=== PATIENT | female | born 1940 | race Caucasian/White ===

== ENCOUNTER → 2016-04-13 | Day surgery (SDC) | payer OTHER ==
[~2016-04-13] VITALS: Ht 162.6 cm; Wt 72.7 kg
[~2016-04-13] MED LIST: ASPI81TA21 PO; BUPIVACAINE 0.25% 2.5MG/ML PF 10 ML VIAL ONE; CHOL1000 PO; CYCL0.052 OP; DIAZ5TAB3 PO; GABA-112 PO; IOPAMIDOL INJ 61% 15 ML VIAL ONE; LIDOCAINE HCL 1% MPF 5 ML VIAL ONE; LISI-461 PO; MAGNESIUM ZINC PO; MINO2.5T2 TOP; MISCCAP77 PO; MULT-506 PO; NAPR1TAB9 PO; OMEGCAP2 PO; PARO30TA PO; POLY335025 PO; RED RICE YEAST PO; TIZA4CAP PO; ULT50 PO; WLLSR/150 PO; [UNRECOGNIZED DRUG - CODE] PO
[2016-04-13 14:29] VITALS: Ht 162.6 cm; Wt 72.7 kg
--- NOTE | 2016-04-13 15:06 | History & Physical Bridge - SC ---
H&P Re-Evaluation Bridge Note: I have examined the patient, reviewed the History & Physical and in the interval since the performance of the History & Physical I have noted the following changes of clinical significance: No changes noted
[2016-04-13 15:29] VITALS: TEMP 37.2
--- NOTE | 2016-04-13 15:31 | Discharge Instructions ---
Discharge Instructions Visit Reason for Visit: Sacroiliitis Discharge Discharge Diagnosis / Problem: Right Si joint pain Discharge Goals Goal(s): Decrease discomfort, Improve function Activity Recommendations Activity Limitations: resume your previous activity Anesthesia . Post Anesthesia Instructions: If you have had General Anesthesia or IV Sedation: * Do not drive today. * Resume driving when surgeon permits. * Do not make important decisions or sign legal documents today. * Call surgeon for: 1. Temperature elevations greater than 101 degrees F. 2. Uncontrollable pain. 3. Excessive bleeding. 4. Persistent nausea and vomiting. 5. Medication intolerance (nausea, vomiting or rash). * For nausea and vomiting use only clear liquids such as: tea, soda, bouillon until nausea subsides, then gradually increase diet as tolerated. * If you have any concerns or questions, call your surgeon's office. If physician is unavailable and it is an emergency, call 911 or go to the nearest emergency room. . Diet Recommendations Recommended Home Diet: resume previous diet Procedures Procedures Performed: RIGHT SACROILIAC JOINT INJECTION Pending Studies Studies pending at discharge: no Medical Emergencies . Who to Call and When: Medical Emergencies: If at any time you feel your situation is an emergency, please call 911 immediately. . Non-Emergent Contact Non-Emergency issues call your: Specialist . . "Provider Documentation" section prepared by Ori Ziegler.
[2016-04-13 15:40] VITALS: BP 187/83; PULSE 77; O2SAT 98
--- NOTE | 2016-04-13 16:07 | OPERATIVE REPORT ---
DATE OF OPERATION: 04/13/2016 PREOPERATIVE DIAGNOSIS: Right sacroiliitis, underlying inflammatory bowel syndrome. POSTOPERATIVE DIAGNOSIS: Same. PROCEDURE: Right sacroiliac joint injection under fluoroscopic guidance. SURGEON: Dr. Ori Ziegler. INDICATIONS: The patient is a 76-year-old white female who was recently seen in the office and has pain localizing to the right SI joint. It occurred when she twisted too far in a therapy pool and she has pain that will radiate into the groin, into the top of the thigh, but not below the knee. It is dependent upon motion and movement of the sacroiliac low back area and pain will bring her to tears at times. PHYSICAL EXAMINATION: Pleasant female seated comfortably. She has point tenderness to palpation of her right SI joints, worse with extension, relieved with flexion. She has normal lower and sensory examination of her lower extremities with a positive Connor maneuver on the right. CONSENT: Verbal and written consent was obtained from the patient. Risks and benefits were reviewed. Risks include but are not limited to abscess and allergic reaction. The patient wishes to proceed. PROCEDURE: The patient was taken back to the special procedures room of the [facility] where she was maintained in a prone position. Backside was cleansed with Betadine x3 and a dry sterile dressing was applied. Fluoroscope was used to identify the right sacroiliac joint. Overlying skin was anesthetized with 2.5 mL of lidocaine 1% with a 25 gauge 1.5-inch needle. A 25 gauge 3.5 inch spinal needle was then directed down towards the SI joint. There was a little give as it entered the joint. Isovue-300 contrast 1 mL was injected in which demonstrated intraarticular uptake pattern. She then underwent injection after negative aspiration of 40 mg of Depo-Medrol and 1.5 mL of preservative free 0.25% Bupivacaine. Injection was well tolerated. DISPOSITION: 1. The patient is taken out into the discharge recovery area where she will be discharged home once discharge criteria have been met. 2. Follow up in the [facility] office in 2-4 weeks. I attest to the content of the Intraoperative Record and any orders documented therein. Any exceptio ns are noted below.
== END | disposition home or self-care (01) ==
LOC: X.SURG 14:09
PROVIDERS: ATTEND Physical Medicine & Rehabilitation
DX: M46.1 Sacroiliitis, not elsewhere classified (principal); M54.5 Low back pain

== ENCOUNTER → 2016-05-16 | Outpatient (CLI) | payer OTHER ==
[~2016-05-16] MED LIST changes: -BUPIVACAINE 0.25% 2.5MG/ML PF 10 ML VIAL ONE; -IOPAMIDOL INJ 61% 15 ML VIAL ONE; -LIDOCAINE HCL 1% MPF 5 ML VIAL ONE; -ULT50 PO; -WLLSR/150 PO
== END | disposition home or self-care (01) ==
LOC: C.RDSM 14:45
PROVIDERS: ATTEND Family Medicine Sports Medicine
DX: M25.551 Pain in right hip (principal)

== ENCOUNTER → 2016-07-13 | Outpatient (CLI) | payer OTHER ==
--- NOTE | 2016-07-13 14:28 | DIAGNOSTIC IMAGING REPORT ---
BILATERAL KNEES 5 VIEWS CLINICAL HISTORY: Bilateral knee pain COMPARISON: None. DISCUSSION: No acute fractures are visualized. There are no erosive or destructive changes. There are minor degenerative changes. Bony mineralization appears normal for age. IMPRESSION: Normal study for age. Electronically signed by: Matheus Car M.D. 07/13/2016 2:26 PM Dictated Date/Time: 07/13/2016 2:24 PM
== END | disposition home or self-care (01) ==
LOC: C.RDSM 14:10
PROVIDERS: ATTEND Physician Assistant
DX: M25.561 Pain in right knee (principal); M25.562 Pain in left knee

== ENCOUNTER → 2016-11-09 | Outpatient (CLI) | payer OTHER ==
--- NOTE | 2016-11-09 13:38 | DIAGNOSTIC IMAGING REPORT ---
RIGHT WRIST MIN 3 VIEWS ROUTINE HISTORY: 76 years-old Female acute right wrist pain without reported trauma. COMPARISON: None available TECHNIQUE: 3 views of the right wrist FINDINGS: Mild radiocarpal joint space narrowing and subchondral sclerosis is present. 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 Subcortical cysts are present within the scaphoid and trapezoid. No acute fracture or dislocation is identified. The soft tissues are unremarkable. IMPRESSION: 1. No acute fracture or dislocation. 2. Degenerative changes about the wrist include moderate first carpometacarpal, mild triscaphe and mild radiocarpal osteoarthritis. The above report was generated using voice recognition software. It may contain grammatical, syntax or spelling errors. Electronically signed by: Champ Knapp M.D. 11/09/2016 1:37 PM Dictated Date/Time: 11/09/2016 1:35 PM
--- NOTE | 2016-11-09 13:38 | DIAGNOSTIC IMAGING REPORT ---
LEFT HAND 3 VIEWS HISTORY: LEFT HAND PAIN COMPARISON: None. FINDINGS: There is no fracture or dislocation. Soft tissues are unremarkable. Moderate osteoarthritis within the DIP and PIP joints. The bones are slightly osteopenic. No erosions identified. Moderate osteoarthritis at the STT joint. IMPRESSION: No fractures. Mild to moderate degenerative changes as described above. Electronically signed by: Chi Haro M.D. 11/09/2016 1:37 PM Dictated Date/Time: 11/09/2016 1:35 PM
== END | disposition home or self-care (01) ==
LOC: C.RDSM 13:47
PROVIDERS: ATTEND Physician Assistant
DX: M79.642 Pain in left hand (principal); M25.531 Pain in right wrist

== ENCOUNTER → 2016-12-12 | Outpatient (CLI) | payer OTHER ==
--- NOTE | 2016-12-12 15:50 | MAMMOGRAPHY REPORT ---
BILATERAL DIGITAL SCREENING MAMMOGRAM WITH CAD: 12/12/2016 CLINICAL HISTORY: Routine screening. Patient has no complaints. TECHNIQUE: Bilateral CC and MLO views were obtained. Current study was also evaluated with a Compute r Aided Detection (CAD) system. COMPARISON: Comparison is made to exams dated: 12/07/2015 mammogram, 12/02/2014 mammogram, 11/25/2013 ma mmogram, 11/15/2011 mammogram, 11/05/2009 mammogram, and 11/15/2012 mammogram - [facility] nter. BREAST COMPOSITION: There are scattered areas of fibroglandular density in both breasts. FINDINGS: There is a newly visualized 6 mm focal asymmetry in the 7:00 to 8:00 anterior right breast , with possible peripheral curvilinear calcification. Although this could represent benign fat necro sis, definitive characterization with spot magnification views and possible ultrasound is recommended . A linear scar marker overlies the left breast. There are a few stable benign rim calcifications in b oth breasts. No other suspicious mass, architectural distortion or cluster of microcalcifications is seen. IMPRESSION: ACR BI-RADS CATEGORY 0: INCOMPLETE EVALUATION: NEED ADDITIONAL IMAGING EVALUATION The newly visualized 6 mm focal asymmetry in the right breast needs additional evaluation. The patient will be called to schedule an appointment. Approximately 10% of breast cancers are not detected with mammography. A negative mammographic report should not delay biopsy if a clinically suggestive mass is present. Mere Gli M.D. ay/:12/12/2016 15:01:29 Business Area Manager: Irma MERCEDES)(Jayson), [facility] letter sent: Addl Imaging 0 BI-RADS Code: ACR BI-RADS Category 0: Incomplete Evaluation: Need Additional Imaging Evaluation
== END | disposition home or self-care (01) ==
LOC: C.MAMM 12:50
PROVIDERS: ATTEND Family Medicine
DX: Z12.31 Encounter for screening mammogram for malignant neoplasm of breast (principal); N64.89 Other specified disorders of breast

== ENCOUNTER → 2016-12-15 | Outpatient (CLI) | payer OTHER ==
--- NOTE | 2016-12-15 15:35 | MAMMOGRAPHY REPORT ---
UNILATERAL RIGHT DIGITAL DIAGNOSTIC MAMMOGRAM AND TARGETED RIGHT ULTRASOUND: 12/15/2016 CLINICAL HISTORY: Callback from screening mammogram for right breast focal asymmetry. TECHNIQUE: Spot magnification right cc and ML views were obtained. COMPARISON: Comparison is made to exams dated: 12/12/2016 mammogram, 12/07/2015 mammogram, 12/02/2014 m ammogram, 11/25/2013 mammogram, 11/15/2012 mammogram, and 11/15/2011 mammogram - [facility] nter. BREAST COMPOSITION: There are scattered areas of fibroglandular density in the right breast. FINDINGS: Spot magnification views of the right breast demonstrate a round 5 mm mass in the right la teral breast at approximately 8 to 9:00, which is of mixed density including fat density. A peripher al curvilinear calcification is seen on the ML view as well as on the screening mammogram, consistent with a developing rim calcification as seen with oil cysts. Targeted ultrasound was performed of the area of the mammographic mass in the right breast. In the r ight breast at 8:30, 5 cm from the nipple, there is a superficial round circumscribed cystic anechoic 6 x 4 x 5 mm mass, with surrounding ill-defined hyperechoic tissue. This corresponds with the mammo graphic mass and has mammographic and sonographic features consistent with a benign oil cyst from fat necrosis. A smaller similar appearing anechoic benign oil cyst is also seen in the adjacent breast measuring 2 x 3 mm. IMPRESSION: ACR BI-RADS CATEGORY 2: BENIGN, TARGETED ULTRASOUND ACR BI-RADS CATEGORY 2: BENIGN Cystic 6 mm mass in the right breast at 8:30 on ultrasound, which demonstrates corresponding fat dens ity and peripheral rim calcification mammographically. The mass is benign and compatible with an oil cyst from fat necrosis. There is no mammographic or targeted sonographic evidence of malignancy. A 1 year screening mammogram is recommended. The patient has been verbally notified of the results. Approximately 10% of breast cancers are not detected with mammography. A negative mammographic report should not delay biopsy if a clinically suggestive mass is present. Marysol Dodd M.D. /:12/15/2016 13:47:29 Builder Operator: Leah Keith, [facility] letter sent: Normal 1/2 BI-RADS Code: ACR BI-RADS Category 2: Benign Ultrasound BI-RADS: ACR BI-RADS Category 2: Benign
== END | disposition home or self-care (01) ==
LOC: C.MAMM 13:16
PROVIDERS: ATTEND Family Medicine
DX: N64.89 Other specified disorders of breast (principal); N63 Unspecified lump in breast

== ENCOUNTER → 2017-03-15 | Outpatient (CLI) | payer OTHER ==
[~2017-03-15] MED LIST changes: +ASPI-319 PO; -ASPI81TA21 PO; +BIOTCAP2 PO; +DVN80 PO; +HYDR-5688 PO; +MAGNESIUM PO; +MINOXIDIL TOP
--- NOTE | 2017-03-15 16:00 | DIAGNOSTIC IMAGING REPORT ---
CERVICAL SPINE 4 OR 5 VIEWS CLINICAL HISTORY: NECK PAIN, RIGHT ARM PAIN/RADICULOPATHY COMPARISON STUDY: Cervical spine radiographs October 19, 2015. FINDINGS: Alignment of the cervical spine is anatomic. Vertebral body heights are maintained. There is no fracture or suspicious lesion. There is mild to moderate disc space narrowing with severe multilevel facet arthrosis. Multilevel bony neural foraminal narrowing is suboptimally assessed on this exam. There is no prevertebral abnormality. IMPRESSION: 1. No cervical spine fracture or subluxation. 2. [id number] multilevel degenerative disc disease and severe multilevel facet arthrosis of the cervical spine with suspected severe multilevel neural foraminal narrowing. Electronically signed by: Jaiden Hicks M.D. 03/15/2017 3:58 PM Dictated Date/Time: 03/15/2017 3:56 PM
== END | disposition home or self-care (01) ==
LOC: C.RDSM 14:26
PROVIDERS: ATTEND Physician Assistant
DX: M50.30 Other cervical disc degeneration, unspecified cervical region (principal); M47.22 Other spondylosis with radiculopathy, cervical region

== ENCOUNTER → 2017-04-13 | Day surgery (SDC) | payer OTHER ==
[2017-04-12 15:21] VITALS: Ht 162.6 cm; Wt 72.7 kg
[~2017-04-13] VITALS: Ht 162.6 cm; Wt 72.7 kg
[~2017-04-13] MED LIST changes: -ASPI-319 PO; +ASPI81TA21 PO; +ATROPINE SULFATE 0.1 MG/ML 5ML SYR IV PRN; +BUPIVACAINE/EPINEPHRINE 0.5% MPF 1:200,000 30 ML VIAL ONE; +CEFAZOLIN 1000MG IV PUSH 5 ML IV SCH; +CEFAZOLIN SOD 1 GM VIAL ONE; +EpHEDrine SULFATE INJ 50 MG/ML AMP IV PRN; +FENTANYL CITRATE INJ 50 MCG/1 ML 2 ML VIAL IV PRN; +FENTANYL CITRATE INJ 50 MCG/1 ML 2 ML VIAL ONE; +HYDROCODONE/ACETAMOPHEN 5/325MG TAB PO PRN; +LACTATED RINGER'S 1000ML 1,000 ML IV SCH; +LIDOCAINE HCL 2% 2 ML VIAL (20MG/ML) ONE; +LIDOCAINE/EPINEPHRINE 1% 20 ML VIAL ONE; -LISI-461 PO; -MAGNESIUM ZINC PO; +MIDAZOLAM HCL 1 MG/ML 2ML VIAL ONE; +ONDANSETRON INJ 2 MG/ML 2 ML VIAL IV PRN; +PROPOFOL IV EMULSION 10 MG/ML 20 ML VIAL IV ONE; +SODIUM CHLORIDE 0.9% 1000ML 1,000 ML IV SCH
--- NOTE | 2017-04-13 13:11 | [facility] Post Operative Brief Note ---
Immediate Operative Summary Operative Date Apr 13, 2017. Pre-Operative Diagnosis Right Carpal Tunnel Syndrome Post-Operative Diagnosis same Procedure(s) Performed Right Carpal Tunnel Open Release Surgeon Dr Dalton Casting And Pasting Supervisor Surgeon(s) ARASELI Regan and Dominique [employer] student Estimated Blood Loss none Findings Consistent with Post-Op Diagnosis Specimens none Drains None Anesthesia Type MAC Regional Complication(s) none Disposition Accompanied Pt To Recover: no Disposition: Recovery Room / PACU
--- NOTE | 2017-04-13 13:22 | [facility] Operative Report ---
Operative Report Operative Date Apr 13, 2017. Pre-Operative Diagnosis Right Carpal Tunnel Syndrome Post-Operative Diagnosis same Procedure(s) Performed Right Carpal Tunnel Open Release Surgeon Dr Dalton Salesperson Men'S Hats Surgeon(s) ARASELI Regan and Dominique [employer] student Estimated Blood Loss none Findings None Specimens none Anesthesia local with IV sedation Complication(s) None Disposition Recovery Room / PACU Indications Patient's a 77-year-old female with carpal tunnel syndrome refractory to nonsurgical methods of management. Description of Procedure Patient was identified as Hannah Rios. She identified the operative site as the right wrist. I marked with my initials. A preoperative surgical timeout was performed. Informed consent was obtained. Preoperative dose of IV antibiotics was given. She was positioned supine on the hospital stretcher with the right arm on a hand table tourniquet was applied to the right arm. The limb was prepped and draped in usual sterile fashion. Prior to prepping and draping 1% lidocaine with epinephrine was injected for a carpal tunnel block. The examination the hand revealed no visible atrophy and otherwise was unremarkable. The limb was exsanguinated with the Esmarch tourniquet inflated to 225 mmHg. A longitudinal incision was made beginning at Mnior's cardinal line and stopping just short of the distal wrist crease. Blunt dissection was performed down to subcutaneous tissues until the transverse carpal ligament was identified. The ligament was then divided in line with the incision up into the distal forearm fascia under direct visualization. It was released both proximally and distally. The contents of the carpal canal were normal. The tendons and tenosynovium were normal. The wound was irrigated and closed with interrupted horizontal mattress stitches using 4-0 nylon. A soft sterile dressing was applied. The tourniquet was let down after 10 minutes of inflation. There were no specimens or complications. Counts are correct in the case. Blood loss was minimal. At the conclusion operation spoke to the patient's friend informed her my findings gave detailed postoperative instructions. She can be rehabilitated according to the carpal tunnel plan. DVT prophylaxis was not indicated. I attest to the content of the Intraoperative Record and any orders documented therein. Any exceptions are noted below.
--- NOTE | 2017-04-13 13:23 | Discharge Instructions-SurgCtr ---
Discharge Instructions Date of Service Apr 13, 2017. Visit Reason for Visit: Right Carpal Tunnel Syndrome Discharge Discharge Diagnosis / Problem: right carpal tunnel syndrome Discharge Goals Goal(s): Decrease discomfort, Improve function, Increase independence Activity Recommendations Activity Limitations: per Instructions/Follow-up section Weightbearing Status: Right non-weightbearing, Right weightbearing Anesthesia . Post Anesthesia Instructions: If you have had General Anesthesia or IV Sedation: * Do not drive today. * Resume driving when surgeon permits. * Do not make important decisions or sign legal documents today. * Call surgeon for: 1. Temperature elevations greater than 101 degrees F. 2. Uncontrollable pain. 3. Excessive bleeding. 4. Persistent nausea and vomiting. 5. Medication intolerance (nausea, vomiting or rash). * For nausea and vomiting use only clear liquids such as: tea, soda, bouillon until nausea subsides, then gradually increase diet as tolerated. * If you have any concerns or questions, call your surgeon's office. If physician is unavailable and it is an emergency, call 911 or go to the nearest emergency room. . Instructions / Follow-Up Instructions / Follow-Up The following are instructions to follow after minor hand surgery. ACTIVITY RECOMMENDATIONS: * Minimize activity until your first visit after surgery. * No excessive walking, jogging, sports or laboring. * Return to activity is individualized. Most patients are able to return to everyday activities within 2 weeks. * Return to sports or intensive labor usually occurs at 1-2 months. * DRIVING: Driving may be resumed when you feel you have adequate pain control and use of the hand. * BATHING: You may shower or sponge-bathe immediately after surgery. The dressing will need to be covered with a plastic bag or plastic wrap until the dressing is changed on the fourth or fifth day after surgery. Once the dressing has been changed on the fourth or fifth day after surgery, you may shower and get the incision wet. * Wash with regular soap and water. * Do not bathe (submerge the incision), soak, swim or use a hot tub until the incision is completely healed over with normal skin and the doctor has given the OK to proceed. * There is no need to apply any ointments, powders or salves to your incision. * Do not apply alcohol or hydrogen peroxide directly to the incision. Diluted peroxide (50:50 mixture with sterile saline) may be used to clean dried blood from around the incision area. WORK/SCHOOL: * You may return to sedentary work or school when you are feeling comfortable. This is usually 3-7 days after surgery. * Expect increased discomfort with increased activity. Continue to elevate and ice the hand as much as possible. DIET: * Resume previous diet. MEDICATIONS: * You will have a prescription for pain medication and an anti-inflammatory medication after surgery. Use the pain pills for severe pain and the anti-inflammatory for less severe pain. * Once the pain pills have run out, try to use the anti-inflammatory. If this is not effective then contact the office for assistance. * The pain medication may cause nausea, constipation and sleepiness. You should see how they affect you before driving or similar activity. * The anti-inflammatory may cause stomach upset and bleeding. If this occurs, let your doctor know immediately . * Some patients may need blood clot prevention. This can be done with either a pill or a simple shot. Your doctor will advise you on when to begin these medications and how to take them. * Do not take aspirin or other anti-inflammatory products (i.e. Advil or Aleve ) if taking blood thinner medication. * Take a stool softener like Colace or a stimulant like Senokot to prevent constipation. SPECIAL CARE INSTRUCTIONS: ICE: * Do not apply ice directly to the skin. * Use a thin dressing or stockinet between the skin and ice bag. The dressing in place after surgery will suffice. * Apply ice for 20-30 minutes and repeat every 2-4 hours. This is especially important for the first 3-7 days after surgery. * Once the pain improves, use ice as needed. ELEVATION: * Keep your hand elevated at or above the level of your heart as much as possible. * Expect some increased discomfort and swelling if you allow your hand to hang down for any length of time. DRESSING: * Your dressing will be changed 4-5 days after surgery by the physical therapist or physician's assistant quality manager. Leave your dressing intact until this time. * You may then change your dressing daily with clean dry gauze or Band-aids and a soft wrap or stockinet. * Always wash your hands prior to touching the incision area. * Once the stitches are removed, you may leave the wound open to air or cover with a thin bandage. * There is no need to apply any ointments, powders or salves to your incision. * Expect some bloody drainage for the first few days after surgery. * Leave the tape strips in place (if present) for 5-7 days. * The initial dressing after surgery may become soaked with blood or fluid which is normal. You may reinforce your dressing with clean, dry gauze as needed. BRACE: * Bracing is generally not needed after routine hand surgery. THERAPY: * Physical therapy may be prescribed after your surgery. * For carpal tunnel and trigger digit surgery you may begin moving your fingers and wrist immediately after surgery as tolerated. * Be careful to not overuse. * Once the sutures are removed, further range of motion exercises can be performed. * Hand incisions may be very sensitive for a few months after surgery so avoid excessive pressure on the incision. If necessary, use a padded weightlifters' glove. * You may massage the incision with skin cream to make it less sensitive and reduce scarring. * Hand strength usually returns with normal use. * If needed, squeezing a soft sponge or Play-dough may help. * Your doctor will recommend physical therapy if necessary. PROBLEMS/QUESTIONS: * If you have any problems such as severe pain, numbness, tingling or high fevers or if you have any questions, please contact the office at [phone]. * It is not uncommon to have some numbness and tingling after the surgery especially if you have had a nerve block done. This should gradually improve over the first 1- 2 days. If this persists longer or worsens then contact the office. FOLLOW UP VISIT: * If not already scheduled, please call the office at to schedule follow-up appointments for approximately 10 days, 6 weeks and 3 months after surgery. * You have a physical therapy appointment on 04/17/17 at 10:30 a.m. * You have an appointment with Dr. Dalton on 04/25/17 at 10:00 a.m. Diet Recommendations Home Diet: no limitations, resume previous diet Pending Studies Studies pending at discharge: no Medical Emergencies . Who to Call and When: Medical Emergencies: If at any time you feel your situation is an emergency, please call 911 immediately. . Non-Emergent Contact Non-Emergency issues call your: Surgeon Call Non-Emergent contact if: temperature is above 101, your pain is not controlled, your pain is worsening, your pain is unusual for you, wound has increased drainage, wound has increased redness, wound has increased pain, you have any medication questions . . "Provider Documentation" section prepared by Randi Pérez. . [place] Drug Monitoring Program Search Results: patient reviewed within database, no issues identified
--- NOTE | 2017-04-13 13:27 | [facility] Operative Report ---
Operative Report Operative Date Apr 13, 2017. Pre-Operative Diagnosis Right Carpal Tunnel Syndrome Post-Operative Diagnosis same Procedure(s) Performed Right Carpal Tunnel Open Release Surgeon Dr Dalton Box Spinner Surgeon(s) ARASELI Regan and Dominique [employer] student Estimated Blood Loss none Findings Carpal tunnel syndrome right wrist Specimens none Drains none Anesthesia local with IV sedation Complication(s) None Disposition Recovery Room / PACU Indications Patient is a 77-year-old female who presented to our office with complaints of right hand paresthesias. She had an EMG and nerve conduction study which showed mild carpal tunnel syndrome right wrist. She is failed conservative treatment which is included corticosteroid injections and bracing. She wished to proceed with surgery. Risks and complications were discussed and informed consent was obtained. Description of Procedure Patient was taken to the operating room and placed under IV sedation. She was given a local injection into her right hand. She was given 1 g of IV Ancef for surgical prophylaxis. Timeout was performed. She was prepped and draped in routine sterile fashion. I was present during the entire case, please see Dr. Dalton's operative report for further detail. She was awakened and transferred to the recovery room in stable condition. I attest to the content of the Intraoperative Record and any orders documented therein. Any exceptions are noted below.
--- NOTE | 2017-04-13 13:41 | Anesthesia Progress Nt - [facility] ---
Anesthesia Post Op Note Date & Time Apr 13, 2017 at 13:41 Vital Signs Pain Intensity: 0 Vital Signs Past 12 Hours Date Time Temp Pulse Resp B/P (MAP) Pulse Ox O2 Delivery O2 Flow Rate FiO2 04/13/17 13:35 36.4 74 16 145/55 (85) 98 Room Air 04/13/17 10:40 36.5 64 16 159/85 (109) 98 Room Air Notes Mental Status: alert / awake / arousable, participated in evaluation Pt Amnestic to Procedure: Yes Nausea / Vomiting: adequately controlled Pain: adequately controlled Airway Patency, RR, SpO2: stable & adequate BP & HR: stable & adequate Hydration State: stable & adequate Anesthetic Complications: no major complications apparent
[2017-04-13 14:03] VITALS: BP 161/75; PULSE 63; O2SAT 98
== END | disposition home or self-care (01) ==
LOC: X.SURG 10:25
PROVIDERS: ATTEND Physical Medicine & Rehabilitation Sports Medicine
DX: G56.01 Carpal tunnel syndrome, right upper limb (principal); I10 Essential (primary) hypertension; M19.90 Unspecified osteoarthritis, unspecified site; Z90.49 Acquired absence of other specified parts of digestive tract; Z90.710 Acquired absence of both cervix and uterus; Z90.89 Acquired absence of other organs; Z98.41 Cataract extraction status, right eye; Z98.42 Cataract extraction status, left eye; Z98.890 Other specified postprocedural states

== ENCOUNTER 2022-07-30 11:18 | Inpatient (IN) ==
--- NOTE | 2022-07-30 11:32 | Emergency Department Note ---
Impression & Plan Ambulatory dysfunction, Hypertension, Falls ED Provider Note NAME: MADELINE CHACON AGE: 82 SEX: F : 1940 ARRIVES VIA: Walk-In INFORMANT: Patient, ED PROVIDER(S): Berlin Maxwell MD CHIEF COMPLAINT: Difficulty with ambulation MEDICAL DECISION MAKING: Patient presented due to concern for ambulatory dysfunction did have an IV established blood work was obtained. Patient's blood work show a white count hemoglobin and platelet count. Kidney function is unremarkable with normal electrolytes. Urinalysis does not show evidence of obvious infection. COVID-negative. Patient's plain films of the lumbar spine show degenerative changes. Hip and pelvis x-ray degenerative changes as well. No fracture subluxation noted. I did reevaluate the patient as nursing had walked the patient without significant difficulty. I asked whether not the patient felt as though she could go home given her recurrence of falls as she ambulated relatively well per nursing after an ambulatory trial. The patient was initially somewhat evasive with regard to an answer and then began an expletive ridden tirade asking how she was supposed to go home. After further discussion as the patient does not believe she can go home I did speak the on-call hospitalist service Dr. Haynes and the patient was admitted to the medicine service. Prior /Outside records reviewed: I did review a dermatology visit she was seen at that time due to concern for sweating. Differential diagnosis: Infection, arthritic changes, fracture, dehydration, metabolic abnormality, hypo/hyperglycemia, electrolyte disturbance, anemia, hypoxia, cardiac sources, intracerebral event, toxicologic, neurologic, as well as other pathologies. Diagnostics, as interpreted by me: ECG: Normal sinus rhythm, rate of 75 normal intervals left axis deviation no ST elevations. T wave version in lead III noted. Cardiac monitoring: An order was placed for continuous cardiac monitoring. The monitor shows a rate of 77 with sinus rhythm. Patient was placed on pulse oximetry Medical decision rules: None Imaging studies: See below I informally reviewed the patient's right hip and pelvis x-ray which showed no obvious fracture. HPI: Patient presents due to concern for ambulatory dysfunction and her right leg gave out this morning. 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 The patient has had a recurrence of falls over the last week. Patient denies any head strike or LOC. She does not take any blood thinning medications the patient has been having some increasing activity as the patient is being evicted from her apartment to a new home. The patient was supposed to have someone help her with boxing up her place yesterday but they had forgotten. Patient denies any chest pains or short ness of breath. The patient has had increase in bowel movements but knows that when they are happening. Patient denies any bowel bladder incontinence or retention. No sciatica type pain i.e. radiation. The patient states that her symptoms seem to be most prominent if she tries to bend down or over. PAST MEDICAL HISTORY: See Below PAST SURGICAL HISTORY: See Below SOCIAL HISTORY: See Below HOME MEDICATIONS: See Below ALLERGIES: See Below VITALS: See Below PHYSICAL EXAMINATION: GENERAL: NAD, non-toxic. EYE EXAM: Normal conjunctiva. PERRL, no anisocoria and EOM's grossly intact w/o pain. Head: Normocephalic atraumatic. NECK: Supple, no nuchal rigidity, no adenopathy, non-tender. No signs of meningismus. FROM of the neck with good chin to chest and neck extension. No stridor. LUNGS: Clear to auscultation. Normal chest wall mechanics. HEART: NSR, systolic ejection murmur noted. ABDOMEN: Abdomen soft, non-tender, no masses, no rebound or guarding. BACK: No CVA TTP. SKIN: No rashes and no bruising. UPPER EXTREMITIES: Upper extremities are grossly normal. LOWER EXTREMITIES: Grossly normal, no edema. Mild discomfort to the right buttock but neurovascular intact distally with no obvious weakness or sensory deficits. NEURO EXAM: A&O x3, cranial nerves II-XII grossly intact, normal speech, moves all 4 extremities. No sensory deficits. Past Med/Surg History Medical History Anxiety Bursitis Cardiac murmur dx within last few years Cervical spinal stenosis Chronic back pain Chronic kidney disease STAGE 3 > doesn't follow anyone for this > pt denies Depression Hypertension Irritable bowel syndrome (IBS) Osteoarthritis Osteoporosis Post traumatic stress disorder Surgical History History of carpal tunnel release BILATERAL History of cataract surgery BILATERAL History of cholecystectomy LAP History of colonoscopy History of esophagogastroduodenoscopy (EGD) History of lumpectomy of left breast History of open reduction and internal fixation (ORIF) procedure LEFT ANKLE History of salpingo-oophorectomy S/P BRETT (total abdominal hysterectomy) Family History Father Alcoholic Prostate cancer Hypertension Mother CHF (congestive heart failure) Glaucoma Obesity Social History Smoking Status: Former smoker Tobacco Type: Cigarettes Second Hand Exposure: No; Do You Dip or Chew Tobacco: No; Hx Alcohol Use: No Hx Substance Use: No Preferred Language: Turkmen Communication Ability: Effective Crm Technical Lead Required: No Beliefs That Will Affect Care: None marital status: Current Living Situation: Spouse current occupational status: employed current occupation: [employer] for [employer] Feels Safe at Home: Yes Assistive Devices: Glasses Allergies Allergies Allergy/AdvReac Type Severity Reaction Status Date / Time prednisone AdvReac Severe TROUBLE Verified 07/30/22 15:21 WITH BLADDER CONTROL gluten AdvReac Intermediate Gastrointestinal Verified 07/30/22 15:22 Upset lactose AdvReac Intermediate Gastrointestinal Verified 07/30/22 15:22 Upset Home Meds Home Medications Medication Instructions Recorded Confirmed cyclosporine 0.05 % eye drops in a 1 drp ophthalmic (eye) Q12H 01/09/18 07/30/22 dropperette (Restasis) diazepam 5 mg tablet 5 mg PO TID PRN Anxiety 01/09/18 07/30/22 duloxetine 30 mg capsule,delayed 30 mg PO BID 01/09/18 07/30/22 release polyethylene glycol 3350 17 1 dose PO BID PRN Constipation 01/09/18 07/30/22 gram/dose oral powder (Miralax) tizanidine 4 mg capsule (Zanaflex) 2 mg PO HS 01/09/18 07/30/22 valsartan 80 mg tablet 80 mg PO QAM 01/09/18 07/30/22 gabapentin 100 mg capsule 200 mg PO TID 06/04/18 07/30/22 red yeast rice 600 mg capsule 1,200 mg PO QAM 05/08/19 07/30/22 aspirin 325 mg tablet,delayed 325 mg PO TID PRN Pain 08/13/20 07/30/22 release paroxetine HCl 40 mg tablet (Paxil) 40 mg PO DAILY 08/13/20 07/30/22 peppermint oil 1 applic topical DIRECTED PRN 08/13/20 07/30/22 Pain psyllium husk 3 gram/5.4 gram oral 1 tbsp PO DIRECTED PRN 08/13/20 07/30/22 powder Constipation apple cider vinegar 500 mg tablet 500 mg PO DAILY NEEDED 10/01/20 07/30/22 cholecalciferol (vitamin D3) 50 50 mcg PO DAILY 10/01/20 07/30/22 mcg (2,000 unit) capsule calcium carbonate 600 mg calcium 600 mg PO DAILY 07/30/22 07/30/22 (1,500 mg) tablet (Calcium) Previous Rx's Medication Instructions Recorded triamcinolone acetonide 0.1 % 1 applic topical BID #80 grams 06/17/22 topical ointment glycopyrronium tosylate 2.4 % 1 applic topical DAILY #30 ea 07/28/22 towelette (Qbrexza) Results & Data (ED) Vital Signs Vital Signs - 24 hr 07/30/22 11:25 07/30/22 12:05 07/30/22 12:16 Temperature 36.6 C Temperature Source Temporal Artery Scan Pulse Rate 86 Pulse Rate [Apical] 71 Pulse Rhythm [Apical] Regular Respiratory Rate 18 18 Respiratory Effort / Characteristics Non-Labored Spontaneous Non-Labored Spontaneous Respiratory Depth Normal Normal Respiratory Pattern Regular Regular Blood Pressure 150/71 H Blood Pressure [Right Arm] 190/82 H Blood Pressure Mean 97 Blood Pressure Mean [Right Arm] 118 Blood Pressure Position Sitting Blood Pressure Position [Right Arm] Pulse Oximetry 96 96 96 Oxygen Delivery Method Room Air Room Air Room Air Sepsis Recent Fever Within 48 Hours No Sepsis New/Unexplained Change in Mental Status N/A Sepsis Action Taken by Nursing No Action Required 07/30/22 12:37 07/30/22 15:46 Temperature Temperature Source Pulse Rate 82 Pulse Rate [Apical] 75 Pulse Rhythm [Apical] Regular Respiratory Rate 18 Respiratory Effort / Characteristics Non-Labored Spontaneous Respiratory Depth Normal Respiratory Pattern Regular Blood Pressure Blood Pressure [Right Arm] 194/84 H Blood Pressure Mean Blood Pressure Mean [Right Arm] 120 Blood Pressure Position Blood Pressure Position [Right Arm] Lying Pulse Oximetry 98 Oxygen Delivery Method Room Air Sepsis Recent Fever Within 48 Hours Sepsis New/Unexplained Change in Mental Status Sepsis Action Taken by Long-Term Medications Current Medication List: was personally reviewed by me Laboratory Data Attestation: I reviewed the patient's lab results. 07/30/22 12:05 07/30/22 12:05 Lab Results 07/30/22 07/30/22 07/30/22 Range/Units 12:01 12:05 12:05 WBC 7.04 (4.8-10.8) K/ul RBC 4.02 L (4.20-5.40) M/uL Hgb 12.0 (12.0-16.0) g/dl Hct 35.6 L (37.0-47.0) % MCV 88.6 (80.0-100.0) fL MCH 29.9 (25.0-34.0) pg MCHC 33.7 (32.0-36.0) g/dL RDW Std Deviation 38.7 (36.4-46.3) fL RDW Coeff of Elis 12.0 (11.5-14.5) % Plt Count 297 (130-400) K/uL MPV 10.0 (9.4-12.4) fL Immature Gran % (Auto) 0.4 % Neut % (Auto) 75.8 % Lymph % (Auto) 14.3 % [place] % (Auto) 7.2 % Eos % (Auto) 1.7 % Baso % (Auto) 0.6 % Neut # (Auto) 5.33 (1.40-6.50) K/uL Lymph # (Auto) 1.01 L (1.2-3.4) K/uL [place] # (Auto) 0.51 (0.11-0.59) K/uL Eos # (Auto) 0.12 (0-0.50) K/uL Baso # (Auto) 0.04 (0-0.2) K/uL Immature Gran # (Auto) 0.03 (0.01-0.20) K/uL Sodium 137 (136-145) mmol/L Potassium 4.4 (3.5-5.1) mmol/L Chloride 101 (98-107) mmol/L Carbon Dioxide 32 (21-32) mmol/L Anion Gap 4 (3-11) BUN 12 (6-23) mg/dl Creatinine 1.00 (0.6-1.2) mg/dl Est Cr Clr Drug Dosing Not Reportable Est GFR ( Amer) 61.6 ml/min Est GFR (Non-Af Amer) 53.2 ml/min BUN/Creatinine Ratio 12.0 (10-20) Glucose 118 H (70-99(Fasting)) mg/dl Calcium 9.8 (8.6-10.3) mg/dl Total Bilirubin 0.5 (0.2-1.0) mg/dl AST 18 (13-39) U/L ALT 12 (7-52) U/L Alkaline Phosphatase 115 H (34-104) U/L Total Protein 6.4 (6.0-8.3) gm/dl Albumin 3.8 (3.4-5.0) gm/dl Globulin 2.6 (2.5-4.0) gm/dl Albumin/Globulin Ratio 1.5 (0.9-2) TSH (0.300-4.500) uIu/ml Urine Color Urine Appearance (Clear) Urine pH (4.5-7.5) Ur Specific [place] (1.000-1.030) Urine Protein (Negative) Urine Glucose (UA) (Negative) Urine Ketones (Negative) Urine Blood (Negative) Urine Nitrite (Negative) Urine Bilirubin (Negative) Urine Urobilinogen (Negative) Ur Leukocyte Esterase (Negative) SARS-CoV-2, RNA, NAAT NEGATIVE (NEGATIVE) 07/30/22 07/30/22 Range/Units 12:05 15:51 WBC (4.8-10.8) K/ul RBC (4.20-5.40) M/uL Hgb (12.0-16.0) g/dl Hct (37.0-47.0) % MCV (80.0-100.0) fL MCH (25.0-34.0) pg MCHC (32.0-36.0) g/dL RDW Std Deviation (36.4-46.3) fL RDW Coeff of Elis (11.5-14.5) % Plt Count (130-400) K/uL MPV (9.4-12.4) fL Immature Gran % (Auto) % Neut % (Auto) % Lymph % (Auto) % [place] % (Auto) % Eos % (Auto) % Baso % (Auto) % Neut # (Auto) (1.40-6.50) K/uL Lymph # (Auto) (1.2-3.4) K/uL [place] # (Auto) (0.11-0.59) K/uL Eos # (Auto) (0-0.50) K/uL Baso # (Auto) (0-0.2) K/uL Immature Gran # (Auto) (0.01-0.20) K/uL Sodium (136-145) mmol/L Potassium (3.5-5.1) mmol/L Chloride (98-107) mmol/L Carbon Dioxide (21-32) mmol/L Anion Gap (3-11) BUN (6-23) mg/dl Creatinine (0.6-1.2) mg/dl Est Cr Clr Drug Dosing Est GFR ( Amer) ml/min Est GFR (Non-Af Amer) ml/min BUN/Creatinine Ratio (10-20) Glucose (70-99(Fasting)) mg/dl Calcium (8.6-10.3) mg/dl Total Bilirubin (0.2-1.0) mg/dl AST (13-39) U/L ALT (7-52) U/L Alkaline Phosphatase (34-104) U/L Total Protein (6.0-8.3) gm/dl Albumin (3.4-5.0) gm/dl Globulin (2.5-4.0) gm/dl Albumin/Globulin Ratio (0.9-2) TSH 3.166 (0.300-4.500) uIu/ml Urine Color Yellow Urine Appearance Clear (Clear) Urine pH 8.0 H (4.5-7.5) Ur Specific [place] 1.008 (1.000-1.030) Urine Protein Negative (Negative) Urine Glucose (UA) Negative (Negative) Urine Ketones Negative (Negative) Urine Blood Negative (Negative) Urine Nitrite Negative (Negative) Urine Bilirubin Negative (Negative) Urine Urobilinogen Negative (Negative) Ur Leukocyte Esterase Negative (Negative) SARS-CoV-2, RNA, NAAT (NEGATIVE) Administered Medications Discontinued Medications Acetaminophen (Acetaminophen 500 Mg Tab) 1,000 mg PO NOW STA Stop: 07/30/22 11:47 Last Admin: 07/30/22 11:56 Dose: Not Given Documented By: ALEJANDRA Lidocaine (Lidocaine 5% 1 Patch) 1 patch TD NOW STA Stop: 07/30/22 11:47 Last Admin: 07/30/22 11:56 Dose: 1 patch Documented By: ALEJANDRA Imaging Data Radiologist's Impression: Hip/Pelvis X-Ray 07/30/22 11:45 XR hip RT 2V w pelvis CLINICAL HISTORY: fall TECHNIQUE: 2 views of the right hip and single frontal view of the pelvis were obtained. Comparison: Comparison is made to right hip radiograph 06/23/2022 FINDINGS: There is no evidence of an acute fracture. Degenerative changes are seen in the hip joint. Vascular calcifications are noted. IMPRESSION: Degenerative changes without evidence of acute abnormality. ACT 112: Negative or not required by law. Electronically signed by: Willi Donnelly M.D. 07/30/2022 12:45 PM Lumbar Spine X-Ray 07/30/22 11:45 XR lumbar spine 2-3V CLINICAL HISTORY: back pain TECHNIQUE: 3 views of the lumbar spine were obtained. Comparison: Comparison is made to lumbar spine radiographs 08/05/2020 FINDINGS: There is no evidence of an acute fracture. Degenerative changes are seen in the lumbar spine. The alignment is normal. Vascular calcifications are noted. IMPRESSION: Degenerative changes as above without acute fracture or subluxation. ACT 112: Negative or not required by law. Electronically signed by: Willi Donnelly M.D. 07/30/2022 12:44 PM Discharge Plan Visit Data Chief Complaint: Leg Injury/Pain Stated Complaint: R LEG WEAKNESS/PAIN, UNABLE TO BEAR WEIGHT ED Provider: Berlin Maxwell Discharge Problem: Ambulatory dysfunction, Hypertension, Falls Forms Stand Alone Forms: [facility] Prescriptions Prescriptions: No Action Qbrexza 2.4 % towelette 1 applic topical DAILY Qty: 30 3RF Rx Instructions: Apply to each underarm not more frequently than once every 24 hours cholecalciferol (vitamin D3) 50 mcg (2,000 unit) capsule 50 mcg PO DAILY triamcinolone acetonide 0.1 % ointment 1 applic topical BID Qty: 80 2RF valsartan 80 mg Tablet 80 mg PO QAM polyethylene glycol 3350 [Miralax] 17 gram/dose Powder 1 dose PO BID PRN (Reason: Constipation) diazepam 5 mg Tablet 5 mg PO TID PRN (Reason: Anxiety) cyclosporine [Restasis] 0.05 % Dropperette 1 drp OPHTHALMIC (EYE) Q12H duloxetine 30 mg Capsule,Delayed Release(Dr/Ec) 30 mg PO BID tizanidine [Zanaflex] 4 mg Capsule 2 mg PO HS gabapentin 100 mg capsule 200 mg PO TID red yeast rice 600 mg capsule 1,200 mg PO QAM peppermint oil Oil 1 applic TOPICAL DIRECTED PRN (Reason: Pain) paroxetine HCl [Paxil] 40 mg Tablet 40 mg PO DAILY psyllium husk 3 gram/5.4 gram Powder 1 tbsp PO DIRECTED PRN (Reason: Constipation) aspirin 325 mg Tablet,Delayed Release (Dr/Ec) 325 mg PO TID PRN (Reason: Pain) apple cider vinegar 500 mg tablet 500 mg PO DAILY calcium carbonate [Calcium 600] 600 mg calcium (1,500 mg) Tablet 600 mg PO DAILY Referrals Referrals: Deja Oseguera CRNP [Primary Care Provider] -
[2022-07-30] MEDS ORDERED: LIDOCAINE 5% 1 PATCH TD STA (11:46)
[2022-07-30] MEDS ORDERED: ACETAMINOPHEN 500 MG TAB PO STA (11:46)
[2022-07-30 12:34] LABS: Basophils # (auto) 0.04 K/uL (0-0.2); Basophils % (auto) 0.6 %; Eosinophils # (auto) 0.12 K/uL (0-0.50); Eosinophils % (auto) 1.7 %; Hematocrit (blood only) 35.6 % (37.0-47.0); Immature Granulocytes # (auto) 0.03 K/uL (0.01-0.20); Immature Granulocytes % (auto) 0.4 %; Lymphocytes # (auto) 1.01 K/uL (1.2-3.4); Lymphocytes % (auto) 14.3 %; Mean Corpuscular Hemoglobin 29.9 pg (25.0-34.0); Mean Corpuscular Hgb Conc 33.7 g/dL (32.0-36.0); Mean Corpuscular Volume 88.6 fL (80.0-100.0); Monocytes # (auto) 0.51 K/uL (0.11-0.59); Monocytes % (auto) 7.2 %; Neutrophils # (auto) 5.33 K/uL (1.40-6.50); Neutrophils % (auto) 75.8 %; Platelet Count 297 K/uL (130-400); RDW Standard Deviation 38.7 fL (36.4-46.3); Red Blood Count 4.02 M/uL (4.20-5.40); White Blood Count 7.04 K/ul (4.8-10.8)
[2022-07-30 12:41] LABS: Alanine Aminotransferase 12 U/L (7-52); Albumin Globulin Ratio 1.5 (0.9-2); Albumin Level 3.8 gm/dl (3.4-5.0); Alkaline Phosphatase 115 U/L (34-104); Anion Gap 4 (3-11); Aspartate Aminotransferase 18 U/L (13-39); Bilirubin,Total 0.5 mg/dl (0.2-1.0); Blood Urea Nitrogen 12 mg/dl (6-23); Calcium 9.8 mg/dl (8.6-10.3); Carbon Dioxide 32 mmol/L (21-32); Chloride 101 mmol/L (98-107); Est GFR (African American) 61.6 ml/min; Est GFR (Non-African American) 53.2 ml/min; Globulin 2.6 gm/dl (2.5-4.0); Glucose 118 mg/dl (70-99(Fasting)); Potassium 4.4 mmol/L (3.5-5.1); Sodium 137 mmol/L (136-145); Total Protein 6.4 gm/dl (6.0-8.3)
--- NOTE | 2022-07-30 12:45 | XRay Report ---
XR lumbar spine 2-3V CLINICAL HISTORY: back pain TECHNIQUE: 3 views of the lumbar spine were obtained. Comparison: Comparison is made to lumbar spine radiographs 08/05/2020 FINDINGS: There is no evidence of an acute fracture. Degenerative changes are seen in the lumbar spine. The ali gnment is normal. Vascular calcifications are noted. IMPRESSION: Degenerative changes as above without acute fracture or subluxation. ACT 112: Negative or not required by law. Electronically signed by: Willi Donnelly M.D. 07/30/2022 12:44 PM
--- NOTE | 2022-07-30 12:47 | XRay Report ---
XR hip RT 2V w pelvis CLINICAL HISTORY: fall TECHNIQUE: 2 views of the right hip and single frontal view of the pelvis were obtained. Comparison: Comparison is made to right hip radiograph 06/23/2022 FINDINGS: There is no evidence of an acute fracture. Degenerative changes are seen in the hip joint. Vascular c alcifications are noted. IMPRESSION: Degenerative changes without evidence of acute abnormality. ACT 112: Negative or not required by law. Electronically signed by: Willi Donnelly M.D. 07/30/2022 12:45 PM
--- NOTE | 2022-07-30 14:28 | History & Physical Report ---
Date of Service July 30, 2022 Assessment & Plan (1) Ambulatory dysfunction: Plan: Ambulatory dysfunction Lumbar x-ray, hip pelvis x-ray with chronic degenerative changes, no acute findings Patient with known SI dysfunction She follows as outpatient with SI injections, last was 2 months ago when she is not able to receive another injection for at least another month No urinary or bladder incontinence/retention, no numbness/tingling at time of assessment, distal extremity strength is full on admitting assessment. Recently his findings return home was offered to patient with outpatient management, she reports this is not an option for her as she is not able to ambulate well enough to perform her daily activities PT/OT consulted Case management consulted, signed out. Patient with significant home stressors and is currently in the eviction process from her home. Notes that she likely strained her back or worsened her chronic underlying SI pain due to being very active and trying to pack. Patient tearful discussing this. Denies SI/HI, endorses that her anxiety has been worse than normal. No red flag findings at time of assessment to indicate emergent MRI (2) Hypertension: Plan: Intermittently hypertensive while tearful, adequate control when patient calm Recheck blood pressure when patient is calm, continue valsartan. May add hydralazine as needed if sustained blood pressure greater than 180 (3) Cardiac murmur: Plan: No chest pain, chest pressure. Noted (4) Chronic kidney disease: Plan: GFR stage III on admission No JUAN on admission Trend Renally dose medications CODE STATUS: DNR Diet: FODMAP/Regular Dispo: Med/Surg History of Present Illness Primary Care Provider: MARY Murry Laurel is an 82-year-old female past medical history of ambulatory dysfunction who has been moving multiple boxes around her home due to eviction and has had onset of back pain and inability to ambulate independently at home. Her pain has not improved with Tylenol, lidocaine patch. Lumbar x-ray in the ER shows degenerative change without acute fracture/subluxation, hip and pelvis x-rays without acute abnormality. Laurel reports she has a history of SI joint dysfunctionand R leg numbness/tingling chronically, but recently has had worsened ability to ambulate. Has been packing boxes at home and trying to pack, but pain has worsened in the leg and back. No wwhen she tries to walk or bend over her R leg gives and out she 'continually falls over.' Is able to walk, but has pain in her hip and falls over when trying to bend over. No dysuria, hesitancy, or urinary retention. no bowel incontinence. NO LE numbness/tingling. Last injection was 2 months ago, cannot get more than every 3 months. She is unable to walk independently at home, is unable to perform daily activities due to ambulatory dysfunction and weakness. She reports this is Sees a psychiatrist for PTSD for which she takes duloxetine, prn diazepam HTN on valsartan Hx of blepharitis which has been worse lately, has trouble filling restasis. CKD3, avoids NSAIDs Medical History: Reviewed Medications: Reviewed Surgical History: Reviewed Family history: Reviewed Allergies: Reviewed Social History: Former smoker, no recent use. No alochol. Code Status: DNR/DNI Allergies Allergy/AdvReac Type Severity Reaction Status Date / Time prednisone AdvReac Verified 07/28/22 14:09 Home Medications Medication Instructions Recorded Confirmed Type cyclosporine 0.05 % eye drops in a 1 drp ophthalmic (eye) Q12H 01/09/18 07/28/22 History dropperette (Restasis) diazepam 5 mg tablet 5 mg PO TID PRN Anxiety 01/09/18 07/28/22 History duloxetine 30 mg capsule,delayed 30 mg PO BID 01/09/18 07/28/22 History release polyethylene glycol 3350 17 1 dose PO BID PRN Constipation 01/09/18 07/28/22 His tory gram/dose oral powder (Miralax) tizanidine 4 mg capsule (Zanaflex) 2 mg PO HS 01/09/18 07/28/22 History valsartan 80 mg tablet 80 mg PO QAM 01/09/18 07/28/22 History gabapentin 100 mg capsule 200 mg PO TID 06/04/18 07/28/22 History red yeast rice 600 mg capsule 1,200 mg PO QAM 05/08/19 07/28/22 History acetaminophen 325 mg tablet 650 mg PO QID PRN Pain 08/13/20 07/28/22 History (Tylenol) aspirin 325 mg tablet,delayed 325 mg PO TID PRN Pain 08/13/20 07/28/22 History release paroxetine HCl 40 mg tablet (Paxil) 40 mg PO DAILY 08/13/20 07/28/22 History peppermint oil 1 applic topical DIRECTED PRN 08/13/20 07/28/22 History Pain psyllium husk 3 gram/5.4 gram oral 1 tbsp PO DIRECTED PRN 08/13/20 07/28/22 History powder Constipation apple cider vinegar 500 mg tablet 500 mg PO DAILY NEEDED 10/01/20 07/28/22 History cholecalciferol (vitamin D3) 50 50 mcg PO DAILY 10/01/20 07/28/22 History mcg (2,000 unit) capsule triamcinolone acetonide 0.1 % 1 applic topical BID #80 grams 06/17/22 07/28/22 Rx topical ointment glycopyrronium tosylate 2.4 % 1 applic topical DAILY #30 ea 07/28/22 07/28/22 Rx towelette (Qbrexza) Past Med/Surg History Medical History Anxiety Bursitis Cardiac murmur Cervical spinal stenosis Chronic back pain Chronic kidney disease Depression Hypertension Irritable bowel syndrome (IBS) Osteoarthritis Osteoporosis Post traumatic stress disorder Surgical History History of carpal tunnel release History of cataract surgery History of cholecystectomy History of colonoscopy History of esophagogastroduodenoscopy (EGD) History of lumpectomy of left breast History of open reduction and internal fixation (ORIF) procedure History of salpingo-oophorectomy S/P BRETT (total abdominal hysterectomy) Family History Father Alcoholic Prostate cancer Hypertension Mother CHF (congestive heart failure) Glaucoma Obesity Social History Smoking Status: Former smoker Tobacco Type: Cigarettes Second Hand Exposure: No; Do You Dip or Chew Tobacco: No; Hx Alcohol Use: No Hx Substance Use: No Preferred Language: Croatian Communication Ability: Effective Microcomputer Support Specialist Required: No Beliefs That Will Affect Care: None marital status: Current Living Situation: Spouse current occupational status: employed current occupation: [employer] Feels Safe at Home: Yes Assistive Devices: Glasses Review of Systems Review of Systems: All systems reviewed & are unremarkable except as noted in HPI & below Physical Exam Physical Exam: General: Tearful. Alert and oriented to name, date, place. HEENT: Atraumatic, normocephalic. DEVIKA. Pulm: CSymmetrical chest rise. No increased work of breathing. No respiratory distress. Cardiac: RRR, -mrg. Radial pulses intact and symmetrical. Abdominal: Nontender, nondistended, soft. BS present. CRANIAL NERVES: II: Pupils equal and reactive, no relative afferent pupillary defect, no VF cuts III, IV, : EOM intact, no gaze preference or deviation, no nystagmus. V: normal sensation in V1, V2, and V3 segments bilaterally VII: no asymmetry, no nasolabial fold flattening VIII: normal hearing to speech IX, X: normal palatal elevation, no uvular deviation XI: 5/5 head turn and 5/5 shoulder shrug bilaterally XII: midline tongue protrusion Extremities: Moves upper extremities equally, database developer strength and sensation intact bilaterally. Lower extremity hip flexion lying in bed 5/5, ankle dorsiflexion/plantarflexion 5/5. Sensation soft touch intact in feet bilaterally. PT pulse intact bilaterally. Results & Data Results & Data Vital Signs (Past 12 Hours) Vital Signs Temp Pulse Pulse Resp BP BP Pulse Ox 07/30/22 12:37 82 07/30/22 12:16 96 07/30/22 12:05 71 18 190/82 H 96 07/30/22 11:25 36.6 C 86 18 150/71 H 96 O2 Del Method 07/30/22 12:37 07/30/22 12:16 Room Air 07/30/22 12:05 Room Air 07/30/22 11:25 Room Air PG Care Time/CCT Total # of Minutes Spent Total Time Spent with Patient: Total time spent is greater than 50% in coordination of care (as documented) at patient's floor/unit and/or counseling patient: Coding Level of Care Code 93600 INT INP/OBS CARE 2/55MIN Diagnoses Ambulatory dysfunction R26.2 Hypertension I10 Cardiac murmur R01.1 Chronic kidney disease N18.9
[2022-07-30 16:03] LABS: Appearance Urine Clear (Clear); Bilirubin Urine Negative (Negative); Blood Urine Negative (Negative); Color Urine Yellow; Glucose Urine UA Negative (Negative); Ketones Urine Negative (Negative); Leukocyte Esterase Urine Negative (Negative); Nitrite Urine Negative (Negative); Protein Urine Negative (Negative); Specific Gravity Urine 1.008 (1.000-1.030); Urobilinogen Urine Negative (Negative)
[2022-07-30] MEDS ORDERED: POLYETHYLENE (MIRALAX) 17 GM PACK PO PRN (17:14)
[2022-07-30] MEDS ORDERED: ACETAMINOPHEN 325 MG TAB PO PRN (17:14)
[2022-07-30] MEDS ORDERED: diazePAM 5 MG TABLET PO PRN (17:14)
[2022-07-30] MEDS: GABAPENTIN 100 MG CAP PO SCH (20:01)
[2022-07-30] MEDS: DULoxetine HCL 30 MG CAP PO SCH (20:02)
[2022-07-30] MEDS: tiZANidine HCL 4 MG TABLET PO SCH (20:03)
[2022-07-30] MEDS: RESTASIS: ORDER AWAITING ACTION SCH (23:03)
[2022-07-31 06:22] LABS: Basophils # (auto) 0.03 K/uL (0-0.2); Basophils % (auto) 0.5 %; Eosinophils # (auto) 0.22 K/uL (0-0.50); Eosinophils % (auto) 3.5 %; Hematocrit (blood only) 34.8 % (37.0-47.0); Hemoglobin 11.7 g/dl (12.0-16.0); Immature Granulocytes # (auto) 0.02 K/uL (0.01-0.20); Immature Granulocytes % (auto) 0.3 %; Lymphocytes # (auto) 1.63 K/uL (1.2-3.4); Lymphocytes % (auto) 26.3 %; Mean Corpuscular Hemoglobin 30.2 pg (25.0-34.0); Mean Corpuscular Hgb Conc 33.6 g/dL (32.0-36.0); Mean Corpuscular Volume 89.7 fL (80.0-100.0); Mean Platelet Volume 9.7 fL (9.4-12.4); Monocytes # (auto) 0.54 K/uL (0.11-0.59); Monocytes % (auto) 8.7 %; Neutrophils # (auto) 3.76 K/uL (1.40-6.50); Neutrophils % (auto) 60.7 %; Platelet Count 272 K/uL (130-400); RDW Coefficient of Variation 12.2 % (11.5-14.5); RDW Standard Deviation 39.7 fL (36.4-46.3); Red Blood Count 3.88 M/uL (4.20-5.40)
[2022-07-31 06:37] LABS: BUN Creatinine Ratio 15.4 (10-20); Calcium 9.5 mg/dl (8.6-10.3); Creatinine Clr Calc Pharmacy 45.6 ml/min; Est GFR (African American) 69.1 ml/min; Est GFR (Non-African American) 59.6 ml/min; Potassium 4.7 mmol/L (3.5-5.1)
[2022-07-31] MEDS: RESTASIS: ORDER AWAITING ACTION SCH ×3 (07:17→23:00)
[2022-07-31] MEDS: LIDOCAINE 5% 1 PATCH TD SCH (08:08)
[2022-07-31] MEDS: DULoxetine HCL 30 MG CAP PO SCH ×2 (08:57→20:08)
[2022-07-31] MEDS: PARoxetine HCL 20 MG TAB PO SCH (08:57)
[2022-07-31] MEDS: GABAPENTIN 100 MG CAP PO SCH ×3 (08:57→20:08)
[2022-07-31] MEDS: CHOLECALCIFEROL 1,000 UNITS 25 MCG TAB PO SCH (08:58)
[2022-07-31] MEDS: VALSARTAN 80 MG TAB PO SCH (08:58)
--- NOTE | 2022-07-31 11:26 | Hospitalist Progress Note ---
Date of Service July 31, 2022 Assessment & Plan (1) Ambulatory dysfunction: Plan: Lumbar x-ray, hip pelvis x-ray with chronic degenerative changes, no acute findings Patient with known SI dysfunction; follows with Dr. Curry for SI injections (last injection was 2 months ago) as well as with a chiropractor - Continue Gabapentin, lidocaine patch (patient refused patch today), and tizanidine. Could consider course of Prednisone, but the patient reports she took this previously for blepharitis and developed severe urinary incontinence while on it. No urinary or bladder incontinence/retention, no numbness/tingling at time of assessment, distal extremity strength is full on admitting assessment and today.No tenderness on palpation of the low back, SI joint, or hips on exam today. PT/OT consulted and pending. Patient with significant home stressors and is currently in the eviction process from her home. She states she is to be out of her apartment by the end of July, and has no where to move into. Notes that she likely strained her back or worsened her chronic underlying SI pain due to being very active and trying to pack.Case management consulted. She follows with a psychiatrist and psychologist regularly for PTSD, and reports she is active in her christianity that is aware of her impending eviction as well. Patient is estranged from her daughter and reports she has no other close family members. (2) Hypertension: Plan: -Stable at 125/71 today. Continue Valsartan. (3) Cardiac murmur: Plan: -Noted on exam. Patient states this was diagnosed several years ago. No other cardiac history. (4) Chronic kidney disease: Plan: GFR stage III on admission. No JUAN on admission. CR is 0.91 today. Continue to monitor. Renally dose medications. (5) Post traumatic stress disorder: Plan: - Continue duloxetine, PRN diazepam - Regularly follows with psychiatry and psychology Plan -Await PT/OT recommendations. -Continue pain control. Admission and Anticipated Discharge Date Admission Date: July 30, 2022 Subjective 82 year old female admitted for ambulatory dysfunction, known SI joint dysfunction, and right leg pain. She states she continues to have pain radiating from her right SI joint to the groin down to her ankle. Patient states she cannot stand on the leg. She is awaiting PT/OT eval. She has seen a chiropractor and Dr. Curry for pain management in the past. She states she has tried home exercises, but never formally tried PT. Patient also states she has taken Prednisone in the past for blepharitis, but this was poorly tolerated due to frequency of urination which occurred as a side effect. Patient states she is under a lot of stress that she is being evicted from her apartment at [facility] in [place] the end of July. She reports she is being evicted without cause. She does not know where she will live after eviction from her apartment. She is in the process of packing which she believes aggravated her SI joint. Patient is also in the process of rehoming her cat. She states she does have a psychiatrist and a therapist she sees regularly for PTSD, in addition to a christianity she attends regularly which is aware of her impending eviction. She states she has no other family, and is currently estranged from her daughter. Case management is aware of the situation as well. She has no other new complaints today. Review of Systems Review of Systems: All systems reviewed & are unremarkable except as noted in Subjective Physical Exam Physical Exam: Temp Pulse Resp BP Pulse Ox O2 Del Method 37.0 C 93 H 18 125/71 96 Room Air 07/31/22 07:27 07/31/22 07:27 07/31/22 07:27 07/31/22 07:27 07/31/22 07:27 07/31/22 07:27 Patient is afebrile. Vital signs stable. Constitutional: average body habitus; no acute distress Eyes: + anicteric sclerae ENMT: Ears: no hearing impairment Neck: normal visual inspection Respiratory: normal respiratory effort, lungs clear to auscultation Cardiovascular: Rate/Rhythm: regular rate and regular rhythm Heart Sounds: + murmur Gastrointestinal (Abdomen): Inspection/Auscultation: normal bowel sounds Percussion/Palpation: abdomen soft; abdomen nontender Musculoskeletal: Head/Neck/Chest: normocephalic and head atraumatic Psychiatric: A+Ox3, euthymic affect Results & Data Results & Data Vital Signs (Past 12 Hours) Vital Signs Temp Pulse Resp BP Pulse Ox O2 Del Method 07/31/22 07:27 37.0 C 93 H 18 125/71 96 Room Air PG Care Time/CCT Total # of Minutes Spent Total Time Spent with Patient: Total time spent is greater than 50% in coordination of care (as documented) at patient's floor/unit and/or counseling patient: Coding Level of Care Code 54123 SUB INP/OBS CARE 2/35MIN Diagnoses Ambulatory dysfunction R26.2 Hypertension I10 Hypertension type: unspecified Cardiac murmur R01.1 Chronic kidney disease N18.9 Post traumatic stress disorder F43.10 (2) Hypertension Hypertension type: unspecified Qualified Code(s): I10 - Essential (primary) hypertension
[2022-07-31] MEDS: POLYETHYLENE (MIRALAX) 17 GM PACK PO SCH ×2 (17:44→20:07)
[2022-07-31] MEDS: diazePAM 5 MG TABLET PO SCH (20:07)
[2022-07-31] MEDS: tiZANidine HCL 4 MG TABLET PO SCH (20:07)
--- NOTE | 2022-07-31 20:47 | Electrocardiogram Report ---
Test Reason : Blood Pressure : / mmHG Vent. Rate : 075 BPM Atrial Rate : 075 BPM P-R Int : 176 ms QRS Dur : 086 ms QT Int : 358 ms P-R-T Axes : 023 -20 016 degrees QTc Int : 399 ms Normal sinus rhythm with sinus arrhythmia Minimal voltage criteria for LVH, may be normal variant ( R in aVL ) Possible Anterior infarct , age undetermined Abnormal ECG When compared with ECG of 16-MAY-2022 03:52, No significant change was found Confirmed by Jose David Garrison ([id number]) on 07/31/2022 8:47:02 PM Referred By: Confirmed By:Jose David Garrison
[2022-08-01] MEDS: RESTASIS: ORDER AWAITING ACTION SCH (07:26)
[2022-08-01] MEDS: POLYETHYLENE (MIRALAX) 17 GM PACK PO SCH ×2 (08:29→20:54)
[2022-08-01] MEDS: diazePAM 5 MG TABLET PO SCH ×3 (08:30→20:51)
[2022-08-01] MEDS: DULoxetine HCL 30 MG CAP PO SCH ×2 (08:31→20:53)
[2022-08-01] MEDS: GABAPENTIN 100 MG CAP PO SCH ×3 (08:32→20:53)
[2022-08-01] MEDS: CHOLECALCIFEROL 1,000 UNITS 25 MCG TAB PO SCH (08:32)
[2022-08-01] MEDS: PARoxetine HCL 20 MG TAB PO SCH (08:32)
[2022-08-01] MEDS: LIDOCAINE 5% 1 PATCH TD SCH (08:32)
[2022-08-01] MEDS: VALSARTAN 80 MG TAB PO SCH (08:33)
[2022-08-01] MEDS ORDERED: ARTIFICIAL TEARS OP PRN (15:00)
--- NOTE | 2022-08-01 16:07 | Hospitalist Progress Note ---
Date of Service August 01, 2022 Assessment & Plan (1) Ambulatory dysfunction: Plan: Ambulatory dysfunction Lumbar x-ray, hip pelvis x-ray with chronic degenerative changes, no acute findings Patient with known SI dysfunction She follows as outpatient with SI injections, last was 2 months ago when she is not able to receive another injection for at least another month No urinary or bladder incontinence/retention, no numbness/tingling at time of assessment, distal extremity strength is full on admitting assessment. Recently his findings return home was offered to patient with outpatient management, she reports this is not an option for her as she is not able to ambulate well enough to perform her daily activities PT/OT consulted recommend rehab Case management consulted, working on getting appointment approval for rehab (2) Hypertension: Plan: Chronically stable continue valsartan (3) Chronic kidney disease: Plan: GFR stage III on admission Clinically stable continue ARB CODE STATUS: DNR Admission and Anticipated Discharge Date Admission Date: July 30, 2022 Subjective Patient really does not focus on her physical ailments has many unpleasant remembrance of what is happening regarding her eviction from [employer] and the challenges of procuring an additional living situation Her back certainly is painful and her performance status and physical and Occupational Therapy have warranted her to need rehabilitation which were going to apply for Physical Exam Physical Exam: She is bothered by some blepharitis Cardiac exam is regular lungs are clear No focal neurological deficits are seen Results & Data Results & Data Vital Signs (Past 12 Hours) Vital Signs Temp Pulse Resp BP BP Pulse Ox O2 Del Method 08/01/22 15:04 97.7 F 77 16 153/78 H 95 Room Air 08/01/22 10:11 Room Air 08/01/22 07:56 98.4 F 85 18 161/84 H 96 Room Air PG Care Time/CCT Total # of Minutes Spent Total Time Spent with Patient: Total time spent is greater than 50% in coordination of care (as documented) at patient's floor/unit and/or counseling patient: Coding Level of Care Code 39285 SUB INP/OBS CARE 1/25MIN Diagnoses Ambulatory dysfunction R26.2 Hypertension I10 Hypertension type: unspecified Chronic kidney disease N18.9 (2) Hypertension Hypertension type: unspecified Qualified Code(s): I10 - Essential (primary) hypertension
[2022-08-01] MEDS ORDERED: NAPHAZOLIN/PHENIRAMIN OPH SOLN 75 DROPS/5 ML BTL OP PRN (16:08)
[2022-08-01] MEDS: tiZANidine HCL 4 MG TABLET PO SCH (20:52)
--- NOTE | 2022-08-02 07:20 | Hospitalist Progress Note ---
Date of Service August 02, 2022 Assessment & Plan (1) Ambulatory dysfunction: Plan: Ambulatory dysfunction Lumbar x-ray, hip pelvis x-ray with chronic degenerative changes, no acute findings Patient with known SI dysfunction She follows as outpatient with SI injections, last was 2 months ago when she is not able to receive another injection for at least another month No urinary or bladder incontinence/retention, no numbness/tingling at time of assessment, distal extremity strength is full on admitting assessment. Recently his findings return home was offered to patient with outpatient management, she reports this is not an option for her as she is not able to ambulate well enough to perform her daily activities PT/OT consulted recommend rehab Case management consulted, working on getting appointment approval for rehab (2) Hypertension: Plan: Chronically stable continue valsartan (3) Chronic kidney disease: Plan: GFR stage III on admission Clinically stable continue ARB CODE STATUS: DNR Admission and Anticipated Discharge Date Admission Date: July 30, 2022 Results & Data Results & Data Vital Signs (Past 12 Hours) Vital Signs Temp Pulse Resp BP Pulse Ox O2 Del Method 08/01/22 20:56 98.8 F 84 18 150/83 H 94 Room Air PG Care Time/CCT Total # of Minutes Spent Total Time Spent with Patient: Total time spent is greater than 50% in coordination of care (as documented) at patient's floor/unit and/or counseling patient: Coding Diagnoses Ambulatory dysfunction R26.2 Hypertension I10 Hypertension type: unspecified Chronic kidney disease N18.9 (2) Hypertension Hypertension type: unspecified Qualified Code(s): I10 - Essential (primary) hypertension
[2022-08-02 08:39] LABS: Hematocrit (blood only) 37.8 % (37.0-47.0); Mean Corpuscular Hemoglobin 30.2 pg (25.0-34.0); Mean Corpuscular Hgb Conc 34.4 g/dL (32.0-36.0); Mean Corpuscular Volume 87.9 fL (80.0-100.0); Platelet Count 348 K/uL (130-400); RDW Coefficient of Variation 12.1 % (11.5-14.5); RDW Standard Deviation 39.1 fL (36.4-46.3); White Blood Count 8.09 K/ul (4.8-10.8)
[2022-08-02] MEDS: POLYETHYLENE (MIRALAX) 17 GM PACK PO SCH (08:46)
[2022-08-02] MEDS: PARoxetine HCL 20 MG TAB PO SCH (08:46)
[2022-08-02] MEDS: LIDOCAINE 5% 1 PATCH TD SCH (08:46)
[2022-08-02] MEDS: CHOLECALCIFEROL 1,000 UNITS 25 MCG TAB PO SCH (08:46)
[2022-08-02] MEDS: GABAPENTIN 100 MG CAP PO SCH ×2 (08:47→13:46)
[2022-08-02] MEDS: VALSARTAN 80 MG TAB PO SCH (08:47)
[2022-08-02] MEDS: DULoxetine HCL 30 MG CAP PO SCH (08:47)
[2022-08-02] MEDS: diazePAM 5 MG TABLET PO SCH ×2 (08:50→13:46)
[2022-08-02 08:51] LABS: BUN Creatinine Ratio 13.1 (10-20); Calcium 9.4 mg/dl (8.6-10.3); Creatinine Clr Calc Pharmacy 41.9 ml/min; Est GFR (African American) 62.4 ml/min; Est GFR (Non-African American) 53.8 ml/min; Potassium 4.3 mmol/L (3.5-5.1)
--- NOTE | 2022-08-02 13:35 | Discharge Summary ---
Date of Service August 02, 2022 Admission HPI Per Admitting Provider Laurel is an 82-year-old female past medical history of ambulatory dysfunction who has been moving multiple boxes around her home due to eviction and has had onset of back pain and inability to ambulate independently at home. Her pain has not improved with Tylenol, lidocaine patch. Lumbar x-ray in the ER shows degenerative change without acute fracture/subluxation, hip and pelvis x-rays without acute abnormality. Laurel reports she has a history of SI joint dysfunctionand R leg numbness/tingling chronically, but recently has had worsened ability to ambulate. Has been packing boxes at home and trying to pack, but pain has worsened in the leg and back. No wwhen she tries to walk or bend over her R leg gives and out she 'continually falls over.' Is able to walk, but has pain in her hip and falls over when trying to bend over. No dysuria, hesitancy, or urinary retention. no bowel incontinence. NO LE numbness/tingling. Last injection was 2 months ago, cannot get more than every 3 months. She is unable to walk independently at home, is unable to perform daily activities due to ambulatory dysfunction and weakness. She reports this is Sees a psychiatrist for PTSD for which she takes duloxetine, prn diazepam HTN on valsartan Hx of blepharitis which has been worse lately, has trouble filling restasis. CKD3, avoids NSAIDs Medical History: Reviewed Medications: Reviewed Surgical History: Reviewed Family history: Reviewed Allergies: Reviewed Social History: Former smoker, no recent use. No alochol. Code Status: DNR/DNI Principal Diagnosis mechanical back pain Discharge Exam pt is awake and alert back pain is seemingly right hip near greater trochanter pain does not seem to be radicular Discharge Data Allergies Allergy/AdvReac Type Severity Reaction Status Date / Time prednisone AdvReac Severe TROUBLE Verified 07/30/22 15:21 WITH BLADDER CONTROL gluten AdvReac Intermediate Gastrointestinal Verified 07/30/22 15:22 Upset lactose AdvReac Intermediate Gastrointestinal Verified 07/30/22 15:22 Upset Consultations 07/30/22 13:22 ED Decision to Admit Stat 08/01/22 12:59 Consult Behavioral Health Liaison Routine Hospital Course (1) Ambulatory dysfunction: Ambulatory dysfunction Lumbar x-ray, hip pelvis x-ray with chronic degenerative changes, no acute findings Patient with known SI dysfunction She follows as outpatient with SI injections, last was 2 months ago when she is not able to receive another injection for at least another month No urinary or bladder incontinence/retention, no numbness/tingling at time of assessment, distal extremity strength is full on admitting assessment. Recently his findings return home was offered to patient with outpatient management, she reports this is not an option for her as she is not able to ambulate well enough to perform her daily activities PT/OT consulted recommend rehab Case management consulted, working on getting appointment approval for rehab (2) Hypertension: Chronically stable continue valsartan (3) Chronic kidney disease: GFR stage III on admission Clinically stable continue ARB CODE STATUS: DNR Total Time Total Time Spent Total Time Spent (In Minutes): It required greater than 30 minutes to prepare this patient for discharge Discharge Plan Discharge Items Patient Disposition: Transfer Inpatient Rehab Fac Reason For Visit: AMBULATORY DYSFUNCTION Discharge Diagnosis: right hip and back pain-musculoskeletal Activity: Per Instructions section Activity Comment: per PT/OT instruction Non-emergency contact: Primary Care Provider Call non-emergency contact if: your symptoms worsen Follow-up/Referrals: Deja Oseguera CRNP [Primary Care Provider] - Diet: Regular Addtl Attending Provider Instructions: Continue with multimodal pain control employing ice, heat, topical Voltaren gel, rest, physical therapy and stretching Pending Studies at Discharge: No Studies:: Consideration of outpatient MRI could be undertaken lumbar spine Stand-Alone Forms: My [facility] Skilled Items Patient informed of condition?: Yes DNR: Yes Discharge Level of Care: Acute rehab Communicable Disease: No Discharge Prognosis: Stable Lines: None Urinary Catheter: No Medications and DC Order Prescriptions: New diclofenac sodium [Voltaren Arthritis Pain] 1 % gel 2 g topical QID PRN (Reason: pain) Qty: 100 0RF Rx Instructions: apply to right hip and leg Continued Qbrexza 2.4 % towelette 1 applic topical DAILY Qty: 30 3RF Rx Instructions: Apply to each underarm not more frequently than once every 24 hours cholecalciferol (vitamin D3) 50 mcg (2,000 unit) capsule 50 mcg PO DAILY triamcinolone acetonide 0.1 % ointment 1 applic topical BID Qty: 80 2RF valsartan 80 mg Tablet 80 mg PO QAM polyethylene glycol 3350 [Miralax] 17 gram/dose Powder 1 dose PO BID PRN (Reason: Constipation) diazepam 5 mg Tablet 5 mg PO TID PRN (Reason: Anxiety) cyclosporine [Restasis] 0.05 % Dropperette 1 drp OPHTHALMIC (EYE) Q12H duloxetine 30 mg Capsule,Delayed Release(Dr/Ec) 30 mg PO BID tizanidine [Zanaflex] 4 mg Capsule 2 mg PO HS gabapentin 100 mg capsule 200 mg PO TID red yeast rice 600 mg capsule 1,200 mg PO QAM peppermint oil Oil 1 applic TOPICAL DIRECTED PRN (Reason: Pain) paroxetine HCl [Paxil] 40 mg Tablet 40 mg PO DAILY psyllium husk 3 gram/5.4 gram Powder 1 tbsp PO DIRECTED PRN (Reason: Constipation) aspirin 325 mg Tablet,Delayed Release (Dr/Ec) 325 mg PO TID PRN (Reason: Pain) apple cider vinegar 500 mg tablet 500 mg PO DAILY calcium carbonate [Calcium 600] 600 mg calcium (1,500 mg) Tablet 600 mg PO DAILY Discharge Orders: Discharge Order (Routine); Ordered 08/02/22 Ordered By: Ant Montes Admission Data Admit Date/Time: 08/02/22 07:17 Attending Provider: Ant Montes Admit Provider: Slava Haynes Primary Care Provider: Deja Oseguera Other Providers: Slava Haynes ; [facility] ; [place] Coding Level of Care Code 33382 INP/OBS DISCH >30 MIN Diagnoses Ambulatory dysfunction R26.2 Hypertension I10 Hypertension type: unspecified Chronic kidney disease N18.9
== END 2022-08-02 15:54 | DRG 552 ==
LOC: ED 11:18 → 3N 11:18 → SUATTDRO 15:09 → 3N 17:03

== ENCOUNTER 2022-09-21 12:23 | Inpatient (IN) ==
[2022-09-21] MEDS ORDERED: fentaNYL citrate PF 100 MCG/2 ML VIAL IV PRN (12:59)
[2022-09-21] MEDS ORDERED: ONDANSETRON INJ 2 MG/ML 2 ML VIAL IV STA (12:59)
--- NOTE | 2022-09-21 13:04 | Emergency Department Note ---
Impression & Plan Acute hip pain, Effusion of hip joint, right, Anemia ED Provider Note NAME: MADELINE CHACON AGE: 82 SEX: F : 1940 ARRIVES VIA: Ambulance INFORMANT: Patient, ED PROVIDER(S): Blaise Velez DO CHIEF COMPLAINT: Hip pain HPI: The patient is an 82-year-old female who presented to the emergency department for an evaluation of hip pain. The patient's had ongoing symptoms for many months. She was seen in our facility recently. She was sent [facility] for rehab but she states the physical therapy made the pain worse. She describes as pain in her right buttocks and goes down into her right thigh. The patient denies having any weakness in the leg but states that she cannot walk because of the pain. She denies having any headache or upper extremity weakness. She denies having any recent falls. She called 911 today to come to the emergency department specifically for an MRI of her back and hip. ROS: See above HPI for pertinent positives & negatives. A total of 10 systems reviewed and were otherwise negative. PAST MEDICAL HISTORY: See Below PAST SURGICAL HISTORY: See Below FAMILY HISTORY: See Below SOCIAL HISTORY: See Below HOME MEDICATIONS: See Below ALLERGIES: See Below VITALS: See Below PHYSICAL EXAMINATION: GENERAL: The patient is awake and alert. The patient is anxious and uncomfor table. EYES: The conjunctivae are clear. The pupils are round and reactive. EARS, NOSE, MOUTH AND THROAT: The nose is without any evidence of any deformity. NECK: The neck is nontender and supple. RESPIRATORY: Normal respiratory effort is noted there is no evidence of wheezing rhonchi or rales CARDIOVASCULAR: Regular rate and rhythm noted there no murmurs rubs or gallops normal S1 normal S2. GASTROINTESTINAL: The abdomen is soft. Abdomen is nontender. BACK: There is no midline tenderness but there was right-sided sacroiliac joint pain as well as pain over the right sciatic joint. MUSCULOSKELETAL/EXTREMITIES: There is pain with range of motion testing of the right hip. SKIN: There is no obvious evidence of any rash. There are no petechiae, pallor or cyanosis noted. There is no calf tenderness or pedal edema. Pulses are symmetric in both feet and both groins. NEUROLOGIC: Patient is awake alert and oriented x3 strength is symmetric patellar reflexes are 2+ bilaterally. Achilles tendon reflexes are 2+ bilaterally. Great toe raise was symmetric. MEDICAL DECISION MAKING: The patient is an 82-year-old female who presented to the emergency department for an evaluation of back pain. The patient arrived via ambulance. She has been having symptoms similar to this for about 3 months. She was seen in our facility before. She was sent for inpatient rehab which she states made the pain only worse. She did not have any fever. White blood cell count was not elevated. The patient was sent for MRI of the lumbar spine as well as the right hip. Initially I thought her condition could be consistent with lumbar radiculopathy but her pain in her right hip was so reproducible there is further concern for right hip pathology. I discussed the patient's laboratory and radiographic studies with her. She was found to have degenerative changes in the lumbar spine but more importantly was found to have changes in her right hip which were felt to be consistent with a large hip effusion as well as other changes which were felt to be secondary to osteoarthritis with an infection in the joint less likely. The patient was found to have anemia as well. I discussed the patient's condition with the on-call orthopedic physician. I also discussed this case with the on-call [facility]. They have agreed to evaluate the patient in the emergency department for further management and disposition. Triage Nursing notes reviewed. Prior medical records reviewed Vital Signs: reviewed and remarkable for elevated blood pressure. Differential diagnosis: Musculoskeletal, disc herniation, fracture, metastatic disease, cord compress ion, discitis, sciatica, cauda equina, infection, aortic disease, renal colic, gastrointestinal, as well as other pathologies. ER treatment provided: See below Diagnostics interpreted by me: ECG: none Cardiac Monitoring: An order was placed for continuous cardiac monitoring. The monitor shows a rate of 88 bpm with sinus rhythm. Laboratory studies: As stated above and show below. Imaging studies: See below. Radiographic imaging was reviewed by myself Consultation(s): I discussed this case with Dr. Appiah who is on-call for orthopedics. Dr Webster, who is on-call for the [facility] was notified about the patient. He will evaluate the patient in the emergency department. Past Med/Surg History Medical History Anxiety Bursitis Cardiac murmur dx within last few years Cervical spinal stenosis Chronic back pain Chronic kidney disease STAGE 3 > doesn't follow anyone for this > pt denies Depression Hypertension Irritable bowel syndrome (IBS) Osteoarthritis Osteoporosis Post traumatic stress disorder Surgical History History of carpal tunnel release BILATERAL History of cataract surgery BILATERAL History of cholecystectomy LAP History of colonoscopy History of esophagogastroduodenoscopy (EGD) History of lumpectomy of left breast History of open reduction and internal fixation (ORIF) procedure LEFT ANKLE History of salpingo-oophorectomy S/P BRETT (total abdominal hysterectomy) Family History Father Alcoholic Prostate cancer Hypertension Mother CHF (congestive heart failure) Glaucoma Obesity Social History Smoking Status: Never smoker Tobacco Type: Cigarettes Second Hand Exposure: No; Do You Dip or Chew Tobacco: No; Hx Alcohol Use: No Hx Substance Use: No Preferred Language: Yi Communication Ability: Effective Client Support Representative Required: No Beliefs That Will Affect Care: None marital status: Current Living Situation: Alone Current Living Situation Comment: pt states she is getting evicted from [place] in 16 days current occupational status: employed current occupation: [employer] Feels Safe at Home: Hesitant to Answer Assistive Devices: Walker Allergies Allergies Allergy/AdvReac Type Severity Reaction Status Date / Time prednisone AdvReac Severe TROUBLE Verified 09/21/22 18:35 WITH BLADDER CONTROL gluten AdvReac Intermediate Gastrointestinal Verified 09/21/22 18:35 Upset lactose AdvReac Intermediate Gastrointestinal Verified 09/21/22 18:35 Upset Home Meds Home Medications Medication Instructions Recorded Confirmed cyclosporine 0.05 % eye drops in a 1 drp ophthalmic (eye) Q12H 01/09/18 09/21/22 dropperette (Restasis) diazepam 5 mg tablet 5 mg PO TID PRN Anxiety 01/09/18 09/21/22 duloxetine 30 mg capsule,delayed 30 mg PO BID 01/09/18 09/21/22 release polyethylene glycol 3350 17 1 dose PO QAM 01/09/18 09/21/22 gram/dose oral powder (Miralax) tizanidine 4 mg capsule (Zanaflex) 2 mg PO HS 01/09/18 09/21/22 valsartan 80 mg tablet 80 mg PO QAM 01/09/18 09/21/22 gabapentin 100 mg capsule 200 mg PO BID 06/04/18 09/21/22 red yeast rice 600 mg capsule 1,200 mg PO QAM 05/08/19 09/21/22 aspirin 325 mg tablet,delayed 325 mg PO TID PRN Pain 08/13/20 09/21/22 release paroxetine HCl 40 mg tablet (Paxil) 40 mg PO DAILY 08/13/20 09/21/22 peppermint oil 1 applic topical DIRECTED PRN 08/13/20 09/21/22 Pain psyllium husk 3 gram/5.4 gram oral 1 tbsp PO HS 08/13/20 09/21/22 powder apple cider vinegar 500 mg tablet 500 mg PO DAILY NEEDED 10/01/20 09/21/22 cholecalciferol (vitamin D3) 50 50 mcg PO DAILY 10/01/20 09/21/22 mcg (2,000 unit) capsule calcium carbonate 600 mg calcium 600 mg PO DAILY 07/30/22 09/21/22 (1,500 mg) tablet (Calcium) Previous Rx's Medication Instructions Recorded triamcinolone acetonide 0.1 % 1 applic topical BID #80 grams 06/17/22 topical ointment glycopyrronium tosylate 2.4 % 1 applic topical DAILY #30 ea 07/28/22 towelette (Qbrexza) diclofenac sodium 1 % topical gel 2 g topical QID PRN pain #100 grams 08/02/22 (Voltaren Arthritis Pain) Results & Data (ED) Vital Signs Vital Signs - 24 hr 09/21/22 12:20 09/21/22 14:30 09/21/22 18:00 Temperature 37.0 C Temperature Source Oral Pulse Rate 86 Pulse Rate [Apical] 78 88 Respiratory Rate 18 18 18 Respiratory Effort / Characteristics Non-Labored Spontaneous Respiratory Depth Normal Blood Pressure 130/78 Blood Pressure [Right Arm] 119/76 171/95 H Blood Pressure Mean 95 Blood Pressure Mean [Right Arm] 90 120 Blood Pressure Position [Right Arm] Semi-fowlers Pulse Oximetry 98 98 98 Oxygen Delivery Method Room Air Room Air Room Air Sepsis Recent Fever Within 48 Hours No Sepsis New/Unexplained Change in Mental Status No Sepsis Action Taken by Nursing No Action Required Home Medications Current Medication List: was personally reviewed by me Laboratory Data Attestation: I reviewed the patient's lab results. 09/21/22 13:50 09/21/22 13:50 Lab Results 09/21/22 09/21/22 09/21/22 Range/Units 13:50 13:50 13:50 WBC 9.15 (4.8-10.8) K/ul RBC 3.04 L (4.20-5.40) M/uL Hgb 8.8 L (12.0-16.0) g/dl Hct 27.8 L (37.0-47.0) % MCV 91.4 (80.0-100.0) fL MCH 28.9 (25.0-34.0) pg MCHC 31.7 L (32.0-36.0) g/dL RDW Std Deviation 42.4 (36.4-46.3) fL RDW Coeff of Elis 12.7 (11.5-14.5) % Plt Count 432 H (130-400) K/uL MPV 9.9 (9.4-12.4) fL Immature Gran % (Auto) 0.5 % Neut % (Auto) 75.5 % Lymph % (Auto) 13.0 % [place] % (Auto) 8.0 % Eos % (Auto) 2.6 % Baso % (Auto) 0.4 % Neut # (Auto) 6.90 H (1.40-6.50) K/uL Lymph # (Auto) 1.19 L (1.2-3.4) K/uL [place] # (Auto) 0.73 H (0.11-0.59) K/uL Eos # (Auto) 0.24 (0-0.50) K/uL Baso # (Auto) 0.04 (0-0.2) K/uL Immature Gran # (Auto) 0.05 (0.01-0.20) K/uL ESR (0-30) mm/hr Sodium 139 (136-145) mmol/L Potassium 4.5 (3.5-5.1) mmol/L Chloride 103 (98-107) mmol/L Carbon Dioxide 31 (21-32) mmol/L Anion Gap 5 (3-11) BUN 16 (6-23) mg/dl Creatinine 1.16 (0.6-1.2) mg/dl Est Cr Clr Drug Dosing 33.9 ml/min Est GFR ( Amer) 51.5 ml/min Est GFR (Non-Af Amer) 44.4 ml/min BUN/Creatinine Ratio 13.8 (10-20) Glucose 104 H (70-99(Fasting)) mg/dl Calcium 10.1 (8.6-10.3) mg/dl Total Bilirubin 0.5 (0.2-1.0) mg/dl AST 14 (13-39) U/L ALT 9 (7-52) U/L Alkaline Phosphatase 102 (34-104) U/L C-Reactive Protein (0-0.5) mg/dl Total Protein 6.5 (6.0-8.3) gm/dl Albumin 3.8 (3.4-5.0) gm/dl Globulin 2.7 (2.5-4.0) gm/dl Albumin/Globulin Ratio 1.4 (0.9-2) Lipase 33 (11-82) U/L Procalcitonin (0-0.5) ng/ml Urine Color Yellow Urine Appearance Clear (Clear) Urine pH 7.5 (4.5-7.5) Ur Specific [place] 1.002 (1.000-1.030) Urine Protein Negative (Negative) Urine Glucose (UA) Negative (Negative) Urine Ketones Negative (Negative) Urine Blood Negative (Negative) Urine Nitrite Negative (Negative) Urine Bilirubin Negative (Negative) Urine Urobilinogen Negative (Negative) Ur Leukocyte Esterase Negative (Negative) SARS-CoV-2, RNA, NAAT (NEGATIVE) 09/21/22 09/21/22 09/21/22 Range/Units 18:13 18:14 18:14 WBC (4.8-10.8) K/ul RBC (4.20-5.40) M/uL Hgb (12.0-16.0) g/dl Hct (37.0-47.0) % MCV (80.0-100.0) fL MCH (25.0-34.0) pg MCHC (32.0-36.0) g/dL RDW Std Deviation (36.4-46.3) fL RDW Coeff of Elis (11.5-14.5) % Plt Count (130-400) K/uL MPV (9.4-12.4) fL Immature Gran % (Auto) % Neut % (Auto) % Lymph % (Auto) % [place] % (Auto) % Eos % (Auto) % Baso % (Auto) % Neut # (Auto) (1.40-6.50) K/uL Lymph # (Auto) (1.2-3.4) K/uL [place] # (Auto) (0.11-0.59) K/uL Eos # (Auto) (0-0.50) K/uL Baso # (Auto) (0-0.2) K/uL Immature Gran # (Auto) (0.01-0.20) K/uL ESR 32 H (0-30) mm/hr Sodium (136-145) mmol/L Potassium (3.5-5.1) mmol/L Chloride (98-107) mmol/L Carbon Dioxide (21-32) mmol/L Anion Gap (3-11) BUN (6-23) mg/dl Creatinine (0.6-1.2) mg/dl Est Cr Clr Drug Dosing ml/min Est GFR ( Amer) ml/min Est GFR (Non-Af Amer) ml/min BUN/Creatinine Ratio (10-20) Glucose (70-99(Fasting)) mg/dl Calcium (8.6-10.3) mg/dl Total Bilirubin (0.2-1.0) mg/dl AST (13-39) U/L ALT (7-52) U/L Alkaline Phosphatase (34-104) U/L C-Reactive Protein 1.61 H (0-0.5) mg/dl Total Protein (6.0-8.3) gm/dl Albumin (3.4-5.0) gm/dl Globulin (2.5-4.0) gm/dl Albumin/Globulin Ratio (0.9-2) Lipase (11-82) U/L Procalcitonin (0-0.5) ng/ml Urine Color Urine Appearance (Clear) Urine pH (4.5-7.5) Ur Specific [place] (1.000-1.030) Urine Protein (Negative) Urine Glucose (UA) (Negative) Urine Ketones (Negative) Urine Blood (Negative) Urine Nitrite (Negative) Urine Bilirubin (Negative) Urine Urobilinogen (Negative) Ur Leukocyte Esterase (Negative) SARS-CoV-2, RNA, NAAT NEGATIVE (NEGATIVE) 09/21/22 Range/Units 18:14 WBC (4.8-10.8) K/ul RBC (4.20-5.40) M/uL Hgb (12.0-16.0) g/dl Hct (37.0-47.0) % MCV (80.0-100.0) fL MCH (25.0-34.0) pg MCHC (32.0-36.0) g/dL RDW Std Deviation (36.4-46.3) fL RDW Coeff of Elis (11.5-14.5) % Plt Count (130-400) K/uL MPV (9.4-12.4) fL Immature Gran % (Auto) % Neut % (Auto) % Lymph % (Auto) % [place] % (Auto) % Eos % (Auto) % Baso % (Auto) % Neut # (Auto) (1.40-6.50) K/uL Lymph # (Auto) (1.2-3.4) K/uL [place] # (Auto) (0.11-0.59) K/uL Eos # (Auto) (0-0.50) K/uL Baso # (Auto) (0-0.2) K/uL Immature Gran # (Auto) (0.01-0.20) K/uL ESR (0-30) mm/hr Sodium (136-145) mmol/L Potassium (3.5-5.1) mmol/L Chloride (98-107) mmol/L Carbon Dioxide (21-32) mmol/L Anion Gap (3-11) BUN (6-23) mg/dl Creatinine (0.6-1.2) mg/dl Est Cr Clr Drug Dosing ml/min Est GFR ( Amer) ml/min Est GFR (Non-Af Amer) ml/min BUN/Creatinine Ratio (10-20) Glucose (70-99(Fasting)) mg/dl Calcium (8.6-10.3) mg/dl Total Bilirubin (0.2-1.0) mg/dl AST (13-39) U/L ALT (7-52) U/L Alkaline Phosphatase (34-104) U/L C-Reactive Protein (0-0.5) mg/dl Total Protein (6.0-8.3) gm/dl Albumin (3.4-5.0) gm/dl Globulin (2.5-4.0) gm/dl Albumin/Globulin Ratio (0.9-2) Lipase (11-82) U/L Procalcitonin < 0.05 (0-0.5) ng/ml Urine Color Urine Appearance (Clear) Urine pH (4.5-7.5) Ur Specific [place] (1.000-1.030) Urine Protein (Negative) Urine Glucose (UA) (Negative) Urine Ketones (Negative) Urine Blood (Negative) Urine Nitrite (Negative) Urine Bilirubin (Negative) Urine Urobilinogen (Negative) Ur Leukocyte Esterase (Negative) SARS-CoV-2, RNA, NAAT (NEGATIVE) Administered Medications Discontinued Medications Ondansetron HCl (Ondansetron Inj 2 Mg/Ml 2 Ml Vial) 4 mg IV NOW STA Stop: 09/21/22 13:00 Last Admin: 09/21/22 13:48 Dose: 4 mg Documented By: FABIAN Imaging Data Attestation: I personally reviewed and interpreted this imaging study as follows: My Impression: MRI of the lumbar spine was obtained in the emergency department. My interpretation is no definite fracture or step-off, final report below. Radiologist's Impression: Hip MRI 09/21/22 12:59 MRI OF THE RIGHT HIP WITHOUT CONTRAST CLINICAL HISTORY: Right hip pain. COMPARISON STUDY: Pelvis and right hip radiographs July 30, 2022. FINDINGS: There is extensive marrow edema within the right acetabulum as well as the right femoral head, neck and intertrochanteric portion of the right femur. Severe right hip joint space narrowing is noted. No fracture line is identified. There is also mild flattening of the right femoral head which has developed since radiographs of July 30, 2022. No definite evidence for avascular necrosis. Subchondral signal abnormality within the right femoral head is likely related to severe osteoarthritis rather than avascular necrosis. A moderate size right hip joint effusion is present. No joint bodies are identified. The right acetabular labrum is not visualized and is torn. There is moderate edema within the soft tissues adjacent to the right hip. No fluid collection is identified. No significant abnormality within the left hip is noted with the exception of mild osteophytosis. No additional sites of marrow edema or present. No bladder abnormality is identified. IMPRESSION: Extensive marrow edema within the right acetabulum, right femoral head and neck and intertrochanteric portion of the right femur. Severe right hip joint space narrowing with interval development of mild flattening of the right femoral head. Moderate size right hip joint effusion with adjacent soft tissue edema. These findings have significant progressed since radiographs of July 30, 2022. Significant progression of severe right hip osteoarthritis is favored. However, septic arthritis of the right hip with associated osteomyelitis could have a similar imaging appearance and correlation with clinical evidence for an infectious process is recommended. Findings discussed with Dr. Velez at time of dictation. ACT 112: Negative or not required by law. Electronically signed by: Jaiden Hicks M.D. 09/21/2022 5:58 PM Lumbar Spine MRI 09/21/22 12:59 MRI OF THE LUMBAR SPINE WITHOUT CONTRAST CLINICAL HISTORY: Back pain radiating into left groin and right hip. COMPARISON STUDY: Lumbar spine MRI June 17, 2021. Lumbar spine radiographs July 30, 2022. TECHNIQUE: Utilizing a 1.5 Sho magnet and dedicated coil, multiplanar, multiecho imaging of the lumbar spine was performed without IV contrast. FINDINGS: For purposes of numbering on this exam, the L5-S1 disc space is assigned to axial image 3 of 6 of the lower axial sequences. 9 mm of anterolisthesis of L5 on S1 has slightly increased since MRI of June 17, 2021. This is due to bilateral L5 pars defects. No lumbar spine fractures are present. There is no suspicious marrow replacement. The conus terminates at the upper L2 level. Paravertebral soft tissues are unremarkable. L1-2: The central canal and neural foramen are patent. There is moderate facet arthrosis. L2-3: There is mild disc space narrowing with disc bulge. There is moderate face t arthrosis and ligamentous hypertrophy. There is mild narrowing of the central canal, lateral recesses and the neural foramen. L3-4: There is moderate facet arthrosis with ligamentous hypertrophy. There is mild disc bulge. There is mild to moderate central canal stenosis. There is mild bilateral neural foraminal stenosis. L4-5: There is severe facet arthrosis. There is mild disc bulge with ligamentous hypertrophy. There is mild narrowing of the central canal. There is moderate to severe bilateral neural foraminal stenosis. This is similar to previous MRI. L5-S1: Bilateral L5 pars defects are noted. There is severe facet arthrosis at this level. Anterolisthesis has slightly increased. There is uncovering of the d isc. The findings result in severe central canal stenosis. Patent AP diameter of the canal is 6.2 mm. An 8 mm right-sided synovial cyst is similar to prior MRI. There is severe bilateral neural foraminal stenosis as well as severe narrowing of both lateral recesses. IMPRESSION: 1. Severe central canal stenosis at L5-S1 due to grade one anterolisthesis with uncovering of the disc, severe facet arthrosis and ligamentous hypertrophy with a superimposed intracanalicular synovial cyst. Findings have mildly progressed since MRI of June 17, 2021. 2. Severe narrowing of the bilateral L5-S1 neural foramen and lateral recesses, as described above. 3. Otherwise, no change in appearance of the lumbar spine. 4. No lumbar spine fractures. ACT 112: Negative or not required by law. Electronically signed by: Jaiden Hicks M.D. 09/21/2022 5:31 PM Discharge Plan Visit Data Chief Complaint: Leg Injury/Pain ED Provider: Blaise Velez Discharge Problem: Acute hip pain, Effusion of hip joint, right, Anemia Patient Disposition: Being Evaluated by Hospitalist Forms Stand Alone Forms: My [facility] Prescriptions Prescriptions: No Action Qbrexza 2.4 % towelette 1 applic topical DAILY Qty: 30 3RF Rx Instructions: Apply to each underarm not more frequently than once every 24 hours cholecalciferol (vitamin D3) 50 mcg (2,000 unit) capsule 50 mcg PO DAILY triamcinolone acetonide 0.1 % ointment 1 applic topical BID Qty: 80 2RF valsartan 80 mg Tablet 80 mg PO QAM polyethylene glycol 3350 [Miralax] 17 gram/dose Powder 1 dose PO QAM diazepam 5 mg Tablet 5 mg PO TID PRN (Reason: Anxiety) cyclosporine [Restasis] 0.05 % Dropperette 1 drp OPHTHALMIC (EYE) Q12H duloxetine 30 mg Capsule,Delayed Release(Dr/Ec) 30 mg PO BID tizanidine [Zanaflex] 4 mg Capsule 2 mg PO HS gabapentin 100 mg capsule 200 mg PO BID red yeast rice 600 mg capsule 1,200 mg PO QAM peppermint oil Oil 1 applic TOPICAL DIRECTED PRN (Reason: Pain) paroxetine HCl [Paxil] 40 mg Tablet 40 mg PO DAILY psyllium husk 3 gram/5.4 gram Powder 1 tbsp PO HS aspirin 325 mg Tablet,Delayed Release (Dr/Ec) 325 mg PO TID PRN (Reason: Pain) apple cider vinegar 500 mg tablet 500 mg PO DAILY calcium carbonate [Calcium 600] 600 mg calcium (1,500 mg) Tablet 600 mg PO DAILY diclofenac sodium [Voltaren Arthritis Pain] 1 % gel 2 g topical QID PRN (Reason: pain) Qty: 100 0RF Rx Instructions: apply to right hip and leg Referrals Referrals: Deja Oseguera CRNP [Primary Care Provider] -
[2022-09-21 14:26] LABS: Basophils # (auto) 0.04 K/uL (0-0.2); Basophils % (auto) 0.4 %; Eosinophils # (auto) 0.24 K/uL (0-0.50); Eosinophils % (auto) 2.6 %; Hematocrit (blood only) 27.8 % (37.0-47.0); Hemoglobin 8.8 g/dl (12.0-16.0); Immature Granulocytes # (auto) 0.05 K/uL (0.01-0.20); Immature Granulocytes % (auto) 0.5 %; Lymphocytes # (auto) 1.19 K/uL (1.2-3.4); Mean Corpuscular Hemoglobin 28.9 pg (25.0-34.0); Mean Corpuscular Hgb Conc 31.7 g/dL (32.0-36.0); Mean Corpuscular Volume 91.4 fL (80.0-100.0); Mean Platelet Volume 9.9 fL (9.4-12.4); Monocytes # (auto) 0.73 K/uL (0.11-0.59); Neutrophils % (auto) 75.5 %; Platelet Count 432 K/uL (130-400); RDW Coefficient of Variation 12.7 % (11.5-14.5); RDW Standard Deviation 42.4 fL (36.4-46.3); Red Blood Count 3.04 M/uL (4.20-5.40); White Blood Count 9.15 K/ul (4.8-10.8)
[2022-09-21 14:29] LABS: Appearance Urine Clear (Clear); Bilirubin Urine Negative (Negative); Blood Urine Negative (Negative); Color Urine Yellow; Glucose Urine UA Negative (Negative); Ketones Urine Negative (Negative); Leukocyte Esterase Urine Negative (Negative); Nitrite Urine Negative (Negative); Protein Urine Negative (Negative); Specific Gravity Urine 1.002 (1.000-1.030); Urobilinogen Urine Negative (Negative); pH Urine 7.5 (4.5-7.5)
[2022-09-21 14:36] LABS: Albumin Globulin Ratio 1.4 (0.9-2); Albumin Level 3.8 gm/dl (3.4-5.0); BUN Creatinine Ratio 13.8 (10-20); Bilirubin,Total 0.5 mg/dl (0.2-1.0); Calcium 10.1 mg/dl (8.6-10.3); Creatinine Clr Calc Pharmacy 33.9 ml/min; Est GFR (African American) 51.5 ml/min; Est GFR (Non-African American) 44.4 ml/min; Globulin 2.7 gm/dl (2.5-4.0); Potassium 4.5 mmol/L (3.5-5.1); Total Protein 6.5 gm/dl (6.0-8.3)
--- NOTE | 2022-09-21 17:33 | Magnetic Resonance Report ---
MRI OF THE LUMBAR SPINE WITHOUT CONTRAST CLINICAL HISTORY: Back pain radiating into left groin and right hip. COMPARISON STUDY: Lumbar spine MRI June 17, 2021. Lumbar spine radiographs July 30, 2022. TECHNIQUE: Utilizing a 1.5 Sho magnet and dedicated coil, multiplanar, multiecho imaging of the [facility] spine was performed without IV contrast. FINDINGS: For purposes of numbering on this exam, the L5-S1 disc space is assigned to axial image 3 of 6 of the lower axial sequences. 9 mm of anterolisthesis of L5 on S1 has slightly increased since MRI of June 17, 2021. This is due to bilateral L5 pars defects. No lumbar spine fractures are present. There is no suspicious marrow replacement. The conus terminates at the upper L2 level. Paravertebral soft tissues are unremarkable. L1-2: The central canal and neural foramen are patent. There is moderate facet arthrosis. L2-3: There is mild disc space narrowing with disc bulge. There is moderate facet arthrosis and ligam entous hypertrophy. There is mild narrowing of the central canal, lateral recesses and the neural for amen. L3-4: There is moderate facet arthrosis with ligamentous hypertrophy. There is mild disc bulge. There is mild to moderate central canal stenosis. There is mild bilateral neural foraminal stenosis. L4-5: There is severe facet arthrosis. There is mild disc bulge with ligamentous hypertrophy. There i s mild narrowing of the central canal. There is moderate to severe bilateral neural foraminal stenosi s. This is similar to previous MRI. L5-S1: Bilateral L5 pars defects are noted. There is severe facet arthrosis at this level. Anterolist hesis has slightly increased. There is uncovering of the disc. The findings result in severe central canal stenosis. Patent AP diameter of the canal is 6.2 mm. An 8 mm right-sided synovial cyst is simil ar to prior MRI. There is severe bilateral neural foraminal stenosis as well as severe narrowing of b oth lateral recesses. IMPRESSION: 1. Severe central canal stenosis at L5-S1 due to grade one anterolisthesis with uncovering of the dis c, severe facet arthrosis and ligamentous hypertrophy with a superimposed intracanalicular synovial c yst. Findings have mildly progressed since MRI of June 17, 2021. 2. Severe narrowing of the bilateral L5-S1 neural foramen and lateral recesses, as described above. 3. Otherwise, no change in appearance of the lumbar spine. 4. No lumbar spine fractures. ACT 112: Negative or not required by law. Electronically signed by: Jaiden Hicks M.D. 09/21/2022 5:31 PM
--- NOTE | 2022-09-21 18:01 | Magnetic Resonance Report ---
MRI OF THE RIGHT HIP WITHOUT CONTRAST CLINICAL HISTORY: Right hip pain. COMPARISON STUDY: Pelvis and right hip radiographs July 30, 2022. FINDINGS: There is extensive marrow edema within the right acetabulum as well as the right femoral he ad, neck and intertrochanteric portion of the right femur. Severe right hip joint space narrowing is noted. No fracture line is identified. There is also mild flattening of the right femoral head which has developed since radiographs of July 30, 2022. No definite evidence for avascular necrosis. Subchon dral signal abnormality within the right femoral head is likely related to severe osteoarthritis rath er than avascular necrosis. A moderate size right hip joint effusion is present. No joint bodies are identified. The right acetabular labrum is not visualized and is torn. There is moderate edema within the soft tissues adjacent to the right hip. No fluid collection is identified. No significant abnorm ality within the left hip is noted with the exception of mild osteophytosis. No additional sites of m arrow edema or present. No bladder abnormality is identified. IMPRESSION: Extensive marrow edema within the right acetabulum, right femoral head and neck and intertrochanteric portion of the right femur. Severe right hip joint space narrowing with interval development of mild flattening of the right femoral head. Moderate size right hip joint effusion with adjacent soft tiss ue edema. These findings have significant progressed since radiographs of July 30, 2022. Significant p rogression of severe right hip osteoarthritis is favored. However, septic arthritis of the right hip with associated osteomyelitis could have a similar imaging appearance and correlation with clinical e vidence for an infectious process is recommended. Findings discussed with Dr. Velez at time of dictat ion. ACT 112: Negative or not required by law. Electronically signed by: Jaiden Hicks M.D. 09/21/2022 5:58 PM
[2022-09-21 19:05] LABS: C Reactive Protein 1.61 mg/dl (0-0.5)
--- NOTE | 2022-09-21 21:10 | History & Physical Report ---
Date of Service September 21, 2022 Assessment & Plan (1) Acute hip pain: Plan: Patient with acute on chronic right hip pain that is effecting her ability to ambulate and reported decline in funcitonal ability. - MRI as per HPI- appreciate Orthopaedics consultation - current impression as reported to me is inflammatory in nature- with her hx of injections ? necrosis - CRP 1.6 with ESR- 32, No leukocytosis and PCT negative - PT/OT consultation - Tiered pain regime- Voltaren gel, Scheduled Tylenol, PRN Motrin, Oxy IR 5mg for severe pain, Morphine for pain uncontrolled - have room to increase neurotin as well - Consider acute/chronic pain consultation (2) Osteoarthritis: Plan: As above Obtain plain films of right knee (3) Ambulatory dysfunction: Plan: As above (4) Irritable bowel syndrome (IBS): Plan: Continue with Miralax food intolerance with gluten and lactose- avoid (5) 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 - Continue gabapentin - Continue Paroxetine -Continue Duloxetine - PRN Valium (6) Hypertension: Plan: Chronic controlled - Continue ARB (7) Anemia: Plan: Chronic normocytic - She reports no change in bowel habits or epigastric pain- - Is taking ASA at home - Adding PPI while in house as she has PRN ibuprofen ordered - trend daily HGB/HCT - anemia labs sent - associated with slightly elevated platelet count History of Present Illness Chief Complaint: Right hip pain Primary Care Provider: MARY Murry 82 YOF with medical history of: Chronic right hip pain, ambulatory dysfunction, PTSD/Anxiety, Osteoperosis, DJD, HTN, Hypothyroidism, IBS. Patient comes to the EMD today for complaints of right hip/leg pain, that she reports has acutely worsened over the past 2 weeks to the point that she reports is unable to bear weight on. She attempts to walk with a cane and/or walker, however she feels that her hip will "pop out and then her right knee will click and buckle". Patient reports that she is being evicted and has been moving boxes and may have also bumped into a corner of a counter that made it much worse. Patient reports history of chronic injections in the right hip by Dr. Curry. She was previously admitted in July for similar symptoms/complaints. She was sent to rehab at that time, she reports that the physical therapy made her pain worse and then the pain consistency changed to become more severe- radiate from her lower back around to her groin, as well as down her leg into her feet; as well as the popping of her hip and knee. She reports that she only takes 500mg of Enter-coated aspirin for her pain and no other modalities. Nothing makes it better, and everything makes it worse. In the EMD the patient had MRI of lumbar spine as ell as her right hip. She was given Fentanyl for pain which she has had some relief from. Her MRI results were interpreted as "significant progression of severe right hip osteoarthritis with significant progression since radiographs in July 2022." Infection was discussed with EMD provider and radiologist and Orthopaedist kindergarten paraprofessional Dr. Appiah- recommendations were reported infection as less likely- ESR was checked which is 32 and CRP of 1.61. There is no pain with palpation of hip bursa and no errythema around hip/back/knee. She is however with femoral click at the knee. Patient will be admitted for pain control, orthopaedics evaluation, as well as obtain plain films of her right knee. CODE: DNR/DNI COVID: NEGATIVE Allergies Allergy/AdvReac Type Severity Reaction Status Date / Time prednisone AdvReac Severe TROUBLE Verified 09/21/22 18:35 WITH BLADDER CONTROL gluten AdvReac Intermediate Gastrointestinal Verified 09/21/22 18:35 Upset lactose AdvReac Intermediate Gastrointestinal Verified 09/21/22 18:35 Upset Home Medications Medication Instructions Recorded Confirmed Type cyclosporine 0.05 % eye drops in a 1 drp ophthalmic (eye) Q12H 01/09/18 09/21/22 History dropperette (Restasis) diazepam 5 mg tablet 5 mg PO TID PRN Anxiety 01/09/18 09/21/22 History duloxetine 30 mg capsule,delayed 30 mg PO BID 01/09/18 09/21/22 History release polyethylene glycol 3350 17 1 dose PO QAM 01/09/18 09/21/22 History gram/dose oral powder (Miralax) tizanidine 4 mg capsule (Zanaflex) 2 mg PO HS 01/09/18 09/21/22 History valsartan 80 mg tablet 80 mg PO QAM 01/09/18 09/21/22 History gabapentin 100 mg capsule 200 mg PO BID 06/04/18 09/21/22 History red yeast rice 600 mg capsule 1,200 mg PO QAM 05/08/19 09/21/22 History aspirin 325 mg tablet,delayed 325 mg PO TID PRN Pain 08/13/20 09/21/22 History release paroxetine HCl 40 mg tablet (Paxil) 40 mg PO DAILY 08/13/20 09/21/22 History peppermint oil 1 applic topical DIRECTED PRN 08/13/20 09/21/22 History Pain psyllium husk 3 gram/5.4 gram oral 1 tbsp PO HS 08/13/20 09/21/22 History powder apple cider vinegar 500 mg tablet 500 mg PO DAILY NEEDED 10/01/20 09/21/22 History cholecalciferol (vitamin D3) 50 50 mcg PO DAILY 10/01/20 09/21/22 History mcg (2,000 unit) capsule triamcinolone acetonide 0.1 % 1 applic topical BID #80 grams 06/17/22 09/21/22 Rx topical ointment glycopyrronium tosylate 2.4 % 1 applic topical DAILY #30 ea 07/28/22 09/21/22 Rx towelette (Qbrexza) calcium carbonate 600 mg calcium 600 mg PO DAILY 07/30/22 09/21/22 History (1,500 mg) tablet (Calcium) diclofenac sodium 1 % topical gel 2 g topical QID PRN pain #100 grams 08/02/22 09/21/22 Rx (Voltaren Arthritis Pain) Past Med/Surg History Medical History Anxiety Bursitis Cardiac murmur dx within last few years Cervical spinal stenosis Chronic back pain Chronic kidney disease STAGE 3 > doesn't follow anyone for this > pt denies Depression Hypertension Irritable bowel syndrome (IBS) Osteoarthritis Osteoporosis Post traumatic stress disorder Surgical History History of carpal tunnel release BILATERAL History of cataract surgery BILATERAL History of cholecystectomy LAP History of colonoscopy History of esophagogastroduodenoscopy (EGD) History of lumpectomy of left breast History of open reduction and internal fixation (ORIF) procedure LEFT ANKLE History of salpingo-oophorectomy S/P BRETT (total abdominal hysterectomy) Family History Father Alcoholic Prostate cancer Hypertension Mother CHF (congestive heart failure) Glaucoma Obesity Social History Smoking Status: Former smoker Tobacco Type: Cigarettes Second Hand Exposure: No; Do You Dip or Chew Tobacco: No; Hx Alcohol Use: No Hx Substance Use: No Preferred Language: Palauan Communication Ability: Effective Clothes Model Required: No Beliefs That Will Affect Care: None marital status: Current Living Situation: Alone Current Living Situation Comment: Pt. 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 [employer] Other Information That Helps Us Care for You: No Feels Safe at Home: Yes Safety Concerns: Feels Safe At This Time Assistive Devices: Cane and Walker Review of Systems Review of Systems: REVIEW OF SYSTEMS: Constitutional: No fever, sweats or chills Eyes: No diplopia, no worsening or blurred vision ENT: normal hearing, no trouble swallowing Respiratory: No cough, sputum, dyspnea at rest or on exertion Cardiovascular: No chest pain, tightness or palpitations Abdomen: (+) IBS with food intolerance, No pain, nausea, vomiting, diarrhea or constipation Musculoskeletal: (+) chronic SI joint pain right hip and knee pain, NO calf pain, swelling Neurologic: (+) right leg weakness, numbness/tingling, or balance problems secondary to pain Psychiatric: (+) PTSD with anxiety Skin: No rash or itch Physical Exam Physical Exam: PHYSICAL EXAM: General: awake, alert, no apparent distress Head: Normocephalic, atraumatic ENT: PERRL, EOMI, redness to both eyes no drainage, no pharyngeal exudate, mucous membranes moist Neuro: AAO x 3, speech clear and appropriate, no pronator drift, no facial droop Chest: equal rise and fall of the chest, no accessory muscle use, no heaves or thrills, Clear to auscultation, on room air, Cardiac: Regular rate and rhythm, telemetry reviewed- NSR, skin warm dry, cap refill <3 seconds, peripheral pules +2 no JVD, no murmur, no edema GI: NABS x 4 quadrants, soft, nontender to palpation, no rebound, guarding or tenderness : Spontaneously voiding, no pain, no CVA tenderness, MSK: Patient with right hip pain that radiates to groin and down to her toes, she has normal muscle tone, but is unable to lift right leg off bed without assistance- and can only hold up for 2-3 seconds, she has good quadricep fire and is without any loss of bowel or bladder. Her right knee is with audible and palpable clik, no laxity or pain with valgus and varus movements and without laxety with anterior posterior drawer test. Click best felt at femoral to patella. No erythema or joint swelling and no pain at bursa of hip. Psych: Normal mood and affect Skin: no rash or erythema Results & Data Results & Data Vital Signs (Past 12 Hours) Vital Signs Temp Pulse Pulse Resp BP BP Pulse Ox 09/21/22 18:00 88 18 171/95 H 98 09/21/22 14:30 78 18 119/76 98 09/21/22 12:20 37.0 C 86 18 130/78 98 O2 Del Method 09/21/22 18:00 Room Air 09/21/22 14:30 Room Air 09/21/22 12:20 Room Air Laboratory Results Abnormal lab results 09/21/22 09/21/22 09/21/22 Range/Units 13:50 13:50 18:14 RBC 3.04 L (4.20-5.40) M/uL Hgb 8.8 L (12.0-16.0) g/dl Hct 27.8 L (37.0-47.0) % MCHC 31.7 L (32.0-36.0) g/dL Plt Count 432 H (130-400) K/uL Neut # (Auto) 6.90 H (1.40-6.50) K/uL Lymph # (Auto) 1.19 L (1.2-3.4) K/uL Childress # (Auto) 0.73 H (0.11-0.59) K/uL ESR 32 H (0-30) mm/hr Glucose 104 H (70-99(Fasting)) mg/dl C-Reactive Protein (0-0.5) mg/dl 09/21/22 Range/Units 18:14 RBC (4.20-5.40) M/uL Hgb (12.0-16.0) g/dl Hct (37.0-47.0) % MCHC (32.0-36.0) g/dL Plt Count (130-400) K/uL Neut # (Auto) (1.40-6.50) K/uL Lymph # (Auto) (1.2-3.4) K/uL Childress # (Auto) (0.11-0.59) K/uL ESR (0-30) mm/hr Glucose (70-99(Fasting)) mg/dl C-Reactive Protein 1.61 H (0-0.5) mg/dl Diagnostic Findings Hip MRI 09/21/22 12:59 MRI OF THE RIGHT HIP WITHOUT CONTRAST CLINICAL HISTORY: Right hip pain. COMPARISON STUDY: Pelvis and right hip radiographs July 30, 2022. FINDINGS: There is extensive marrow edema within the right acetabulum as well as the right femoral head, neck and intertrochanteric portion of the right femur. Severe right hip joint space narrowing is noted. No fracture line is identified. There is also mild flattening of the right femoral head which has developed since radiographs of July 30, 2022. No definite evidence for avascular necrosis. Subchondral signal abnormality within the right femoral head is likely related to severe osteoarthritis rather than avascular necrosis. A moderate size right hip joint effusion is present. No joint bodies are identified. The right acetabular labrum is not visualized and is torn. There is moderate edema within the soft tissues adjacent to the right hip. No fluid collection is identified. No significant abnormality within the left hip is noted with the exception of mild osteophytosis. No additional sites of marrow edema or present. No bladder abnormality is identified. IMPRESSION: Extensive marrow edema within the right acetabulum, right femoral head and neck and intertrochanteric portion of the right femur. Severe right hip joint space narrowing with interval development of mild flattening of the right femoral head. Moderate size right hip joint effusion with adjacent soft tissue edema. These findings have significant progressed since radiographs of July 30, 2022. Significant progression of severe right hip osteoarthritis is favored. However, septic arthritis of the right hip with associated osteomyelitis could have a similar imaging appearance and correlation with clinical evidence for an infectious process is recommended. Findings discussed with Dr. Velez at time of dictation. ACT 112: Negative or not required by law. Electronically signed by: Jaiden Hicks M.D. 09/21/2022 5:58 PM Lumbar Spine MRI 09/21/22 12:59 MRI OF THE LUMBAR SPINE WITHOUT CONTRAST CLINICAL HISTORY: Back pain radiating into left groin and right hip. COMPARISON STUDY: Lumbar spine MRI June 17, 2021. Lumbar spine radiographs July 30, 2022. TECHNIQUE: Utilizing a 1.5 Sho magnet and dedicated coil, multiplanar, multiecho imaging of the lumbar spine was performed without IV contrast. FINDINGS: For purposes of numbering on this exam, the L5-S1 disc space is assigned to a xial image 3 of 6 of the lower axial sequences. 9 mm of anterolisthesis of L5 on S1 has slightly increased since MRI of June 17, 2021. This is due to bilateral L5 pars defects. No lumbar spine fractures are present. There is no suspicious marrow replacement. The conus terminates at the upper L2 level. Paravertebral soft tissues are unremarkable. L1-2: The central canal and neural foramen are patent. There is moderate facet arthrosis. L2-3: There is mild disc space narrowing with disc bulge. There is moderate facet arthrosis and ligamentous hypertrophy. There is mild narrowing of the central canal, lateral recesses and the neural foramen. L3-4: There is moderate facet arthrosis with ligamentous hypertrophy. There is mild disc bulge. There is mild to moderate central canal stenosis. There is mild bilateral neural foraminal stenosis. L4-5: There is severe facet arthrosis. There is mild disc bulge with ligamentous hypertrophy. There is mild narrowing of the central canal. There is moderate to severe bilateral neural foraminal stenosis. This is similar to previous MRI. L5-S1: Bilateral L5 pars defects are noted. There is severe facet arthrosis at this level. Anterolisthesis has slightly increased. There is uncovering of the disc. The findings result in severe central canal stenosis. Patent AP diameter of the canal is 6.2 mm. An 8 mm right-sided synovial cyst is similar to prior MRI. There is severe bilateral neural foraminal stenosis as well as severe narrowing of both lateral recesses. IMPRESSION: 1. Severe central canal stenosis at L5-S1 due to grade one anterolisthesis with uncovering of the disc, severe facet arthrosis and ligamentous hypertrophy with a superimposed intracanalicular synovial cyst. Findings have mildly progressed since MRI of June 17, 2021. 2. Severe narrowing of the bilateral L5-S1 neural foramen and lateral recesses, as described above. 3. Otherwise, no change in appearance of the lumbar spine. 4. No lumbar spine fractures. ACT 112: Negative or not required by law. Electronically signed by: Jaiden Hicks M.D. 09/21/2022 5:31 PM Medications Administered Home Medications cyclosporine 0.05 % eye drops in a dropperette (Restasis) 1 drp ophthalmic (eye) Q12H 01/09/18 [History Confirmed 09/21/22] diazepam 5 mg tablet 5 mg PO TID PRN Anxiety 01/09/18 [History Confirmed 09/21/22] duloxetine 30 mg capsule,delayed release 30 mg PO BID 01/09/18 [History Confirmed 09/21/22] polyethylene glycol 3350 17 gram/dose oral powder (Miralax) 1 dose PO QAM 01/09/18 [History Confirmed 09/21/22] tizanidine 4 mg capsule (Zanaflex) 2 mg PO HS 01/09/18 [History Confirmed 09/21/22] valsartan 80 mg tablet 80 mg PO QAM 01/09/18 [History Confirmed 09/21/22] gabapentin 100 mg capsule 200 mg PO BID 06/04/18 [History Confirmed 09/21/22] red yeast rice 600 mg capsule 1,200 mg PO QAM 05/08/19 [History Confirmed 09/21/22] aspirin 325 mg tablet,delayed release 325 mg PO TID PRN Pain 08/13/20 [History Confirmed 09/21/22] paroxetine HCl 40 mg tablet (Paxil) 40 mg PO DAILY 08/13/20 [History Confirmed 09/21/22] peppermint oil 1 applic topical DIRECTED PRN Pain 08/13/20 [History Confirmed 09/21/22] psyllium husk 3 gram/5.4 gram oral powder 1 tbsp PO HS 08/13/20 [History Confirmed 09/21/22] apple cider vinegar 500 mg tablet 500 mg PO DAILY NEEDED 10/01/20 [History Confirmed 09/21/22] cholecalciferol (vitamin D3) 50 mcg (2,000 unit) capsule 50 mcg PO DAILY 10/01/20 [History Confirmed 09/21/22] triamcinolone acetonide 0.1 % topical ointment 1 applic topical BID #80 grams 06/17/22 [Rx Confirmed 09/21/22] glycopyrronium tosylate 2.4 % towelette (Qbrexza) 1 applic topical DAILY #30 ea 07/28/22 [Rx Confirmed 09/21/22] calcium carbonate 600 mg calcium (1,500 mg) tablet (Calcium) 600 mg PO DAILY 07/30/22 [History Confirmed 09/21/22] diclofenac sodium 1 % topical gel (Voltaren Arthritis Pain) 2 g topical QID PRN pain #100 grams 08/02/22 [Rx Confirmed 09/21/22] Active Medications Fentanyl Citrate (Fentanyl Citrate Pf 100 Mcg/2 Ml Vial) 50 mcg IV Q15M PRN PRN Reason: Pain Stop: 10/05/22 12:58 Code Status & VTE Plan VTE Prophylaxis Plan VTE Prophylaxis will be ordered: Yes Supervising Physician Co-Signing Physician Notes Attending addendum: I have physically seen this patient, have supervised the BRUCE's activities, and agree with the H&P unless as otherwise noted. Assessment and Plan: Right hip pain/Ambulatory dysfunction- MRI lumbosacral spine/MRI hip: Severe right hip OA with effusion, with concerns regarding septic arthritis and osteomyelitis Additional clinical concerns regarding osteonecrosis with history of steroid injections Consultation to orthopedic surgery PT/OT consults May need pain management consult PTSD- Continue gabapentin, paroxetine and duloxetine as needed Valium irritable bowel syndrome/gluten sensitivity/lactose intolerance- Appropriate diet remaining orders and notations as noted PG Care Time/CCT Total # of Minutes Spent Total Time Spent with Patient: Total time spent is greater than 50% in coordination of care (as documented) at patient's floor/unit and/or counseling patient: Coding Level of Care Code 03480 INT INP/OBS CARE 375MIN Diagnoses Acute hip pain M25.551 Laterality: right Osteoarthritis M19.90 Ambulatory dysfunction R26.2 Irritable bowel syndrome (IBS) K58.9 Post traumatic stress disorder F43.10 Hypertension I10 Hypertension type: unspecified Anemia D64.9 Anemia type: unspecified type (1) Acute hip pain Laterality: right Qualified Code(s): M25.551 - Pain in right hip (6) Hypertension Hypertension type: unspecified Qualified Code(s): I10 - Essential (primary) hypertension (7) Anemia Anemia type: unspecified type Qualified Code(s): D64.9 - Anemia, unspecified
[2022-09-21] MEDS ORDERED: IBUPROFEN 600 MG TAB PO PRN (22:02)
[2022-09-21] MEDS ORDERED: ONDANSETRON INJ 2 MG/ML 2 ML VIAL IV PRN (22:02)
[2022-09-21] MEDS ORDERED: DICLOFENAC SOD 1% GEL 100 GM TUBE EXT PRN (22:02)
[2022-09-21] MEDS ORDERED: MoRPHine SULFATE 2 MG/ML CARP IV PRN (22:02)
[2022-09-21] MEDS ORDERED: ACETAMINOPHEN 325 MG TAB PO PRN (22:02)
[2022-09-21] MEDS: POLYETHYLENE (MIRALAX) 17 GM PACK PO SCH (22:53)
[2022-09-21] MEDS: tiZANidine HCL 4 MG TABLET PO SCH (22:54)
[2022-09-21] MEDS: GABAPENTIN 100 MG CAP PO SCH (22:55)
[2022-09-21] MEDS: DULoxetine HCL 30 MG CAP PO SCH (22:55)
[2022-09-21] MEDS: HEPARIN SOD 5,000 UNIT/0.5 ML VIAL SQ SCH (23:14)
[2022-09-22] MEDS ORDERED: SODIUM CHLORIDE 0.9% 1000ML 500 ML IV ONE (02:08)
[2022-09-22 06:53] LABS: Basophils # (auto) 0.04 K/uL (0-0.2); Basophils % (auto) 0.7 %; Eosinophils # (auto) 0.29 K/uL (0-0.50); Eosinophils % (auto) 4.7 %; Hematocrit (blood only) 25.2 % (37.0-47.0); Hemoglobin 8.1 g/dl (12.0-16.0); Immature Granulocytes # (auto) 0.04 K/uL (0.01-0.20); Immature Granulocytes % (auto) 0.7 %; Lymphocytes # (auto) 1.43 K/uL (1.2-3.4); Lymphocytes % (auto) 23.3 %; Mean Corpuscular Hemoglobin 29.1 pg (25.0-34.0); Mean Corpuscular Hgb Conc 32.1 g/dL (32.0-36.0); Mean Corpuscular Volume 90.6 fL (80.0-100.0); Monocytes # (auto) 0.57 K/uL (0.11-0.59); Monocytes % (auto) 9.3 %; Neutrophils # (auto) 3.78 K/uL (1.40-6.50); Neutrophils % (auto) 61.3 %; Platelet Count 355 K/uL (130-400); RDW Coefficient of Variation 12.7 % (11.5-14.5); RDW Standard Deviation 41.8 fL (36.4-46.3); Red Blood Count 2.78 M/uL (4.20-5.40); White Blood Count 6.15 K/ul (4.8-10.8)
[2022-09-22 07:19] LABS: BUN Creatinine Ratio 11.5 (10-20); Calcium 9.1 mg/dl (8.6-10.3); Est GFR (African American) 58.8 ml/min; Est GFR (Non-African American) 50.7 ml/min; Potassium 4.4 mmol/L (3.5-5.1)
--- NOTE | 2022-09-22 07:33 | XRay Report ---
RIGHT KNEE 3 VIEWS CLINICAL HISTORY: Right knee pain. FINDINGS: AP, crosstable lateral, and sunrise portable views of the right knee are obtained. No prior studies are available for comparison at the time of dictation. The skeletal structures are osteopeni c. No fracture is seen. There is mild tricompartmental degenerative joint space narrowing. No signifi cant joint effusion is identified. The overlying soft tissues are within normal limits. There is athe rosclerotic calcification of the regional arteries. IMPRESSION: No acute bony abnormality is identified. Electronically signed by: Justin Velez M.D. 09/22/2022 7:32 AM
[2022-09-22 07:38] LABS: Ferritin 16.5 ng/ml (8-388)
[2022-09-22] MEDS: GABAPENTIN 100 MG CAP PO SCH ×2 (08:53→20:43)
[2022-09-22] MEDS: CHOLECALCIFEROL 1,000 UNITS 25 MCG TAB PO SCH (08:53)
[2022-09-22] MEDS: DULoxetine HCL 30 MG CAP PO SCH ×2 (08:53→20:44)
[2022-09-22] MEDS: PARoxetine HCL 20 MG TAB PO SCH (08:53)
[2022-09-22] MEDS: PANTOprazole 40 MG TAB PO SCH (08:54)
[2022-09-22] MEDS: POLYETHYLENE (MIRALAX) 17 GM PACK PO SCH ×2 (08:54→20:49)
[2022-09-22] MEDS: CALCIUM 600MG + VIT D 400 IU TAB PO SCH (08:54)
[2022-09-22] MEDS: HEPARIN SOD 5,000 UNIT/0.5 ML VIAL SQ SCH ×2 (09:34→20:50)
--- NOTE | 2022-09-22 09:46 | Hospitalist Progress Note ---
Date of Service September 22, 2022 Assessment & Plan (1) Acute hip pain: Plan: Patient with acute on chronic right hip pain that is effecting her ability to ambulate and reported decline in funcitonal ability. - MRI progressive worsening oa, no signs of clinical infection- appreciate Orthopaedics consultation -Orthopedic consult ordered joint aspiration which initially does not look infectious but could be inflammatory pending crystal analysis Orthopedic spine consult feels not acute changes but chronic changes which may warrant surgical intervention in the future - PT/OT consultation - Tiered pain regime- Voltaren gel, Scheduled Tylenol, PRN Motrin, Oxy IR 5mg for severe pain, Morphine for pain uncontrolled -Patient is very specific about her medications requesting Cymbalta 3 times daily although med reconciliation states she is only prescribed a twice daily continuing gabapentin twice daily continuing Valium 3 times daily as needed (2) Osteoarthritis: Plan: Right hip and back are noted on MRI imaging of significant degeneration right knee on plain film shows no acute bony abnormality (3) Ambulatory dysfunction: Plan: Patient and her hip and back prevent appropriate ambulation PT OT evaluation pending continue with multimodal pain control (4) Irritable bowel syndrome (IBS): Plan: Continue with Miralax food intolerance with gluten and lactose- avoid (5) 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 - Continue gabapentin - Continue Paroxetine -Continue Duloxetine - PRN Valium (6) Hypertension: Plan: Chronic controlled - Continue ARB (7) Anemia: Plan: Chronic normocytic, is iron deficient - She reports no change in bowel habits or epigastric pain- - Is taking ASA at home for cardiovascular protection - Adding PPI while in house as she has PRN ibuprofen ordered - Admission and Anticipated Discharge Date Admission Date: September 21, 2022 Subjective Patient states she has 6 out of 10 and nonradicular hip and back pain mostly surrounding her right hip Patient does have some tangential discussions regarding multiple medical issues over time Continues to express displeasure at the apparent infection I personally discussed with Dr. Rosario the results of her spine MRI Physical Exam Physical Exam: Patient appears in mild distress She had no radicular neurological symptoms noted no weakness or absent sensation at this time Results & Data Results & Data Vital Signs (Past 12 Hours) Vital Signs Temp Pulse Pulse Resp BP Pulse Ox O2 Del Method 09/22/22 07:21 98.2 F 73 18 166/67 H 97 Room Air 09/22/22 02:54 69 112/65 09/22/22 02:00 88 99/47 L 09/22/22 01:38 91 H 16 89/55 L 09/21/22 21:58 97.7 F 82 18 182/78 H 100 Room Air 09/21/22 21:49 Room Air Laboratory Results Reviewed CBC reviewed chemistries reviewed joint fluid analysis reviewed vitamin B12 folate PG Care Time/CCT Total # of Minutes Spent Total Time Spent with Patient: Total time spent is greater than 50% in coordination of care (as documented) at patient's floor/unit and/or counseling patient: Coding Level of Care Code 51260 SUB INP/OBS CARE 2/35MIN Diagnoses Acute hip pain M25.551 Laterality: right Osteoarthritis M19.90 Ambulatory dysfunction R26.2 Irritable bowel syndrome (IBS) K58.9 Post traumatic stress disorder F43.10 Hypertension I10 Hypertension type: unspecified Anemia D64.9 Anemia type: unspecified type (1) Acute hip pain Laterality: right Qualified Code(s): M25.551 - Pain in right hip (6) Hypertension Hypertension type: unspecified Qualified Code(s): I10 - Essential (primary) hypertension (7) Anemia Anemia type: unspecified type Qualified Code(s): D64.9 - Anemia, unspecified
--- NOTE | 2022-09-22 11:28 | Orthopedic Consultation ---
Date of Consultation September 22, 2022 Assessment & Plan (1) Acute hip pain: Findings discussed. Mildly elevated inflammatory parameters. No recent illness. Not overtly immunocompromised. Not a smoker or a drinker. She has had x-rays in June which look normal. X-rays and may show some joint space narrowing. MRI is reviewed. Positive effusion with loss of joint space and bipolar bone marrow edema most notable in the superior femoral head possibly consistent with osteonecrosis. Differential diagnosis would include a rapidly progressive destructive arthropathy. Charcot joint. Osteoarthritis. Infection. Avascular necrosis. Mild transient bone marrow edema syndrome/transient osteoporosis of the hip. Recommend pain control. We will check x-rays of her right hip and order ultrasound-guided hip aspiration through radiology to obtain fluid for analysis. History of Present Illness Attending Physician: Ant Montes MD History of Present Illness Pat is 82 years old. She gets SI joints from Dr. Curry. Sometime recently she states she developed pain in the right hip area that wraps around into her groin and also went down her thigh. She states a couple weeks. Review of medical record indicates that she was into the ER back in July for right hip pain. She denies a history of injury. She has not been ill recently. She has had no injections into the hip joint area. Pain is constant and occurs at rest sleeping and sitting. She reports pain is 10 out of 10[address]She localizes Dr. Curry is injection to the caudal/SI area. Allergies Allergy/AdvReac Type Severity Reaction Status Date / Time prednisone AdvReac Severe TROUBLE Verified 09/21/22 18:35 WITH BLADDER CONTROL gluten AdvReac Intermediate Gastrointestinal Verified 09/21/22 18:35 Upset lactose AdvReac Intermediate Gastrointestinal Verified 09/21/22 18:35 Upset Home Medications Medication Instructions Recorded Confirmed Type cyclosporine 0.05 % eye drops in a 1 drp ophthalmic (eye) Q12H 01/09/18 09/21/22 History dropperette (Restasis) diazepam 5 mg tablet 5 mg PO TID PRN Anxiety 01/09/18 09/21/22 History duloxetine 30 mg capsule,delayed 30 mg PO BID 01/09/18 09/21/22 History release polyethylene glycol 3350 17 1 dose PO QAM 01/09/18 09/21/22 History gram/dose oral powder (Miralax) tizanidine 4 mg capsule (Zanaflex) 2 mg PO HS 01/09/18 09/21/22 History valsartan 80 mg tablet 80 mg PO QAM 01/09/18 09/21/22 History gabapentin 100 mg capsule 200 mg PO BID 06/04/18 09/21/22 History red yeast rice 600 mg capsule 1,200 mg PO QAM 05/08/19 09/21/22 History aspirin 325 mg tablet,delayed 325 mg PO TID PRN Pain 08/13/20 09/21/22 History release paroxetine HCl 40 mg tablet (Paxil) 40 mg PO DAILY 08/13/20 09/21/22 History peppermint oil 1 applic topical DIRECTED PRN 08/13/20 09/21/22 History Pain psyllium husk 3 gram/5.4 gram oral 1 tbsp PO HS 08/13/20 09/21/22 History powder apple cider vinegar 500 mg tablet 500 mg PO DAILY NEEDED 10/01/20 09/21/22 History cholecalciferol (vitamin D3) 50 50 mcg PO DAILY 10/01/20 09/21/22 History mcg (2,000 unit) capsule triamcinolone acetonide 0.1 % 1 applic topical BID #80 grams 06/17/22 09/21/22 Rx topical ointment glycopyrronium tosylate 2.4 % 1 applic topical DAILY #30 ea 07/28/22 09/21/22 Rx towelette (Qbrexza) calcium carbonate 600 mg calcium 600 mg PO DAILY 07/30/22 09/21/22 History (1,500 mg) tablet (Calcium) diclofenac sodium 1 % topical gel 2 g topical QID PRN pain #100 grams 08/02/22 09/21/22 Rx (Voltaren Arthritis Pain) Patient History Medical History Anxiety Bursitis Cardiac murmur dx within last few years Cervical spinal stenosis Chronic back pain Chronic kidney disease STAGE 3 > doesn't follow anyone for this > pt denies Depression Hypertension Irritable bowel syndrome (IBS) Osteoarthritis Osteoporosis Post traumatic stress disorder Surgical History History of carpal tunnel release BILATERAL History of cataract surgery BILATERAL History of cholecystectomy LAP History of colonoscopy History of esophagogastroduodenoscopy (EGD) History of lumpectomy of left breast History of open reduction and internal fixation (ORIF) procedure LEFT ANKLE History of salpingo-oophorectomy S/P BRETT (total abdominal hysterectomy) Family History Father Alcoholic Prostate cancer Hypertension Mother CHF (congestive heart failure) Glaucoma Obesity Social History Smoking Status: Former smoker Tobacco Type: Cigarettes Second Hand Exposure: No; Do You Dip or Chew Tobacco: No; Hx Alcohol Use: No Hx Substance Use: No Preferred Language: Frisian Communication Ability: Effective [employer] Director Required: No Beliefs That Will Affect Care: None marital status: Current Living Situation: Alone Current Living Situation Comment: Pt. lives at [facility], states she is to be evicted current occupational status: employed current occupation: [employer] Other Information That Helps Us Care for You: No Feels Safe at Home: Yes Safety Concerns: Feels Safe At This Time Assistive Devices: Walker Review of Systems Review of Systems: No recent illnesses or infections. No fevers. Physical Exam Physical Exam: DP pulse nonpalpable. PT pulses trace. Capillary refill less than 2 seconds. Sensation intact. The right leg is not swollen. She has 5 out of 5 ankle and toe plantarflexion dorsiflexion and eversion strength. She is unable to do a straight leg raise or flex her right hip. She is able to sit and appears pretty comfortable. She is able to get up and ambulate independently. Positive limp uses walker. The knee leg and thigh are nontender. There is no erythema swelling or induration. There is tenderness over the greater trochanter. Hip range of motion is painful. Rotatory movements of the hip also painful. Hip flexion to 90 rotatory movements are limited. Results & Data Vital Signs (Past 12 Hours) Vital Signs Temp Pulse Pulse Resp BP Pulse Ox O2 Del Method 09/22/22 07:21 36.8 C 73 18 166/67 H 97 Room Air 09/22/22 02:54 69 112/65 09/22/22 02:00 88 99/47 L 09/22/22 01:38 91 H 16 89/55 L Laboratory Results Laboratory Results WBC 6.15 K/ul (4.8-10.8) 09/22/22 06:04 RBC 2.78 M/uL (4.20-5.40) L 09/22/22 06:04 Hgb 8.1 g/dl (12.0-16.0) L 09/22/22 06:04 Hct 25.2 % (37.0-47.0) L 09/22/22 06:04 MCV 90.6 fL (80.0-100.0) 09/22/22 06:04 MCH 29.1 pg (25.0-34.0) 09/22/22 06:04 MCHC 32.1 g/dL (32.0-36.0) 09/22/22 06:04 RDW Std Deviation 41.8 fL (36.4-46.3) 09/22/22 06:04 RDW Coeff of Elis 12.7 % (11.5-14.5) 09/22/22 06:04 Plt Count 355 K/uL (130-400) 09/22/22 06:04 MPV 10.0 fL (9.4-12.4) 09/22/22 06:04 Immature Gran % (Auto) 0.7 % 09/22/22 06:04 Neut % (Auto) 61.3 % 09/22/22 06:04 Lymph % (Auto) 23.3 % 09/22/22 06:04 [place] % (Auto) 9.3 % 09/22/22 06:04 Eos % (Auto) 4.7 % 09/22/22 06:04 Baso % (Auto) 0.7 % 09/22/22 06:04 Neut # (Auto) 3.78 K/uL (1.40-6.50) 09/22/22 06:04 Lymph # (Auto) 1.43 K/uL (1.2-3.4) 09/22/22 06:04 [place] # (Auto) 0.57 K/uL (0.11-0.59) 09/22/22 06:04 Eos # (Auto) 0.29 K/uL (0-0.50) 09/22/22 06:04 Baso # (Auto) 0.04 K/uL (0-0.2) 09/22/22 06:04 Immature Gran # (Auto) 0.04 K/uL (0.01-0.20) 09/22/22 06:04 ESR 32 mm/hr (0-30) H 09/21/22 18:14 Sodium 139 mmol/L (136-145) 09/22/22 06:04 Potassium 4.4 mmol/L (3.5-5.1) 09/22/22 06:04 Chloride 107 mmol/L (98-107) 09/22/22 06:04 Carbon Dioxide 30 mmol/L (21-32) 09/22/22 06:04 Anion Gap 2 (3-11) L 09/22/22 06:04 BUN 12 mg/dl (6-23) 09/22/22 06:04 Creatinine 1.04 mg/dl (0.6-1.2) 09/22/22 06:04 Est Cr Clr Drug Dosing 39.0 ml/min 09/22/22 06:04 Est GFR ( Amer) 58.8 ml/min 09/22/22 06:04 Est GFR (Non-Af Amer) 50.7 ml/min 09/22/22 06:04 BUN/Creatinine Ratio 11.5 (10-20) 09/22/22 06:04 Glucose 104 mg/dl (70-99(Fasting)) H 09/22/22 06:04 Calcium 9.1 mg/dl (8.6-10.3) 09/22/22 06:04 Magnesium 2.0 mg/dl (1.7-2.4) 09/22/22 06:04 Iron 32 mcg/dl (35-150) L 09/22/22 06:04 TIBC 374 mcg/dl (250-450) 09/21/22 18:14 Unsaturated IBC 353 mcg/dl (155-355) 09/21/22 18:14 Transferrin % Sat 6 % (15-50) L 09/21/22 18:14 Ferritin 16.5 ng/ml (8-388) 09/22/22 06:04 Total Bilirubin 0.5 mg/dl (0.2-1.0) 09/21/22 13:50 AST 14 U/L (13-39) 09/21/22 13:50 ALT 9 U/L (7-52) 09/21/22 13:50 Alkaline Phosphatase 102 U/L (34-104) 09/21/22 13:50 C-Reactive Protein 1.61 mg/dl (0-0.5) H 09/21/22 18:14 Total Protein 6.5 gm/dl (6.0-8.3) 09/21/22 13:50 Albumin 3.8 gm/dl (3.4-5.0) 09/21/22 13:50 Globulin 2.7 gm/dl (2.5-4.0) 09/21/22 13:50 Albumin/Globulin Ratio 1.4 (0.9-2) 09/21/22 13:50 Lipase 33 U/L (11-82) 09/21/22 13:50 Vitamin B12 311 pg/ml (180-914) 09/22/22 06:04 Folate 9.96 ng/ml (>5.38) 09/22/22 06:04 Procalcitonin < 0.05 ng/ml (0-0.5) 09/21/22 18:14 Urine Color Yellow 09/21/22 13:50 Urine Appearance Clear (Clear) 09/21/22 13:50 Urine pH 7.5 (4.5-7.5) 09/21/22 13:50 Ur Specific [place] 1.002 (1.000-1.030) 09/21/22 13:50 Urine Protein Negative (Negative) 09/21/22 13:50 Urine Glucose (UA) Negative (Negative) 09/21/22 13:50 Urine Ketones Negative (Negative) 09/21/22 13:50 Urine Blood Negative (Negative) 09/21/22 13:50 Urine Nitrite Negative (Negative) 09/21/22 13:50 Urine Bilirubin Negative (Negative) 09/21/22 13:50 Urine Urobilinogen Negative (Negative) 09/21/22 13:50 Ur Leukocyte Esterase Negative (Negative) 09/21/22 13:50 SARS-CoV-2, RNA, NAAT NEGATIVE (NEGATIVE) 09/21/22 18:13 Impressions Hip MRI 09/21/22 12:59 MRI OF THE RIGHT HIP WITHOUT CONTRAST CLINICAL HISTORY: Right hip pain. COMPARISON STUDY: Pelvis and right hip radiographs July 30, 2022. FINDINGS: There is extensive marrow edema within the right acetabulum as well as the right femoral head, neck and intertrochanteric portion of the right femur. Severe right hip joint space narrowing is noted. No fracture line is identified. There is also mild flattening of the right femoral head which has developed since radiographs of July 30, 2022. No definite evidence for avascular necrosis. Subchondral signal abnormality within the right femoral head is likely related to severe osteoarthritis rather than avascular necrosis. A moderate size right hip joint effusion is present. No joint bodies are identified. The right acetabular labrum is not visualized and is torn. There is moderate edema within the soft tissues adjacent to the right hip. No fluid collection is identified. No significant abnormality within the left hip is noted with the exception of mild osteophytosis. No additional sites of marrow edema or present. No bladder abnormality is identified. IMPRESSION: Extensive marrow edema within the right acetabulum, right femoral head and neck and intertrochanteric portion of the right femur. Severe right hip joint space narrowing with interval development of mild flattening of the right femoral head. Moderate size right hip joint effusion with adjacent soft tissue edema. These findings have significant progressed since radiographs of July 30, 2022. Significant progression of severe right hip osteoarthritis is favored. However, septic arthritis of the right hip with associated osteomyelitis could have a similar imaging appearance and correlation with clinical evidence for an infectious process is recommended. Findings discussed with Dr. Velez at time of dictation. ACT 112: Negative or not required by law. Electronically signed by: Jaiden Hicks M.D. 09/21/2022 5:58 PM Lumbar Spine MRI 09/21/22 12:59 MRI OF THE LUMBAR SPINE WITHOUT CONTRAST CLINICAL HISTORY: Back pain radiating into left groin and right hip. COMPARISON STUDY: Lumbar spine MRI June 17, 2021. Lumbar spine radiographs July 30, 2022. TECHNIQUE: Utilizing a 1.5 Sho magnet and dedicated coil, multiplanar, multiecho imaging of the lumbar spine was performed without IV contrast. FINDINGS: For purposes of numbering on this exam, the L5-S1 disc space is assigned to axial image 3 of 6 of the lower axial sequences. 9 mm of anterolisthesis of L5 on S1 has slightly increased since MRI of June 17, 2021. This is due to bilateral L5 pars defects. No lumbar spine fractures are present. There is no suspicious marrow replacement. The conus terminates at the upper L2 level. Paravertebral soft tissues are unremarkable. L1-2: The central canal and neural foramen are patent. There is moderate facet arthrosis. L2-3: There is mild disc space narrowing with disc bulge. There is moderate facet arthrosis and ligamentous hypertrophy. There is mild narrowing of the central canal, lateral recesses and the neural foramen. L3-4: There is moderate facet arthrosis with ligamentous hypertrophy. There is mild disc bulge. There is mild to moderate central canal stenosis. There is mild bilateral neural foraminal stenosis. L4-5: There is severe facet arthrosis. There is mild disc bulge with ligamentous hypertrophy. There is mild narrowing of the central canal. There is moderate to severe bilateral neural foraminal stenosis. This is similar to previous MRI. L5-S1: Bilateral L5 pars defects are noted. There is severe facet arthrosis at this level. Anterolisthesis has slightly increased. There is uncovering of the disc. The findings result in severe central canal stenosis. Patent AP diameter of the canal is 6.2 mm. An 8 mm right-sided synovial cyst is similar to prior MRI. There is severe bilateral neural foraminal stenosis as well as severe narrowing of both lateral recesses. IMPRESSION: 1. Severe central canal stenosis at L5-S1 due to grade one anterolisthesis with uncovering of the disc, severe facet arthrosis and ligamentous hypertrophy with a superimposed intracanalicular synovial cyst. Findings have mildly progressed since MRI of June 17, 2021. 2. Severe narrowing of the bilateral L5-S1 neural foramen and lateral recesses, as described above. 3. Otherwise, no change in appearance of the lumbar spine. 4. No lumbar spine fractures. ACT 112: Negative or not required by law. Electronically signed by: Jaiden Hicks M.D. 09/21/2022 5:31 PM Knee X-Ray 09/21/22 20:50 RIGHT KNEE 3 VIEWS CLINICAL HISTORY: Right knee pain. FINDINGS: AP, crosstable lateral, and sunrise portable views of the right knee are obtained. No prior studies are available for comparison at the time of dictation. The skeletal structures are osteopenic. No fracture is seen. There is mild tricompartmental degenerative joint space narrowing. No significant joint effusion is identified. The overlying soft tissues are within normal limits. There is atherosclerotic calcification of the regional arteries. IMPRESSION: No acute bony abnormality is identified. Electronically signed by: Justin Velez M.D. 09/22/2022 7:32 AM (1) Acute hip pain Laterality: right Qualified Code(s): M25.551 - Pain in right hip
--- NOTE | 2022-09-22 14:46 | Fluoroscopy Report ---
FLUOROSCOPICALLY GUIDED RIGHT HIP ASPIRATION CLINICAL HISTORY: right hip fluoro guided aspiration COMPARISON STUDY: MRI of the right hip September 21, 2022. Right hip radiographs July 20, 2022. Fluoroscopy time: 29 seconds. Number of fluoroscopic images: 1. Carmelo, r: 3.67 PROCEDURE AND FINDINGS: The procedure, risks and benefits were discussed with the patient and informe d written consent was obtained. The procedure was performed by Dr. Kurt umana. Skin overlying the right hip was prepped and draped in sterile fashion and local anesthesia was achieved with 1% lid ocaine. Under intermittent fluoroscopic guidance, a 3 1/2 inch 22-gauge needle was directed into the femoral head/neck junction. Due to technical difficulties, the fluoroscopic image was not saved. Batres christopher, there was immediate return of serous joint fluid. A total of 9 cc of right hip joint fluid was a spirated and sent to the laboratory for analysis as ordered. The needle was withdrawn. The patient to lerated the procedure well and no immediate complications were evident. IMPRESSION: Successful fluoroscopically guided right hip aspiration with aspiration of 9 cc of joint fluid which was sent to the laboratory for analysis as ordered. ACT 112: Negative or not required by law. Electronically signed by: Jaiden Hicks M.D. 09/22/2022 2:43 PM
--- NOTE | 2022-09-22 15:12 | XRay Report ---
XR hip RT 2V w pelvis CLINICAL HISTORY: Right hip pain. COMPARISON: Pelvis and right hip radiographs July 30, 2022. MRI of the right hip September 21, 2022. FINDINGS: Severe right hip joint space narrowing has progressed since radiographs of July 30, 2022. M ixed lucency and sclerosis within the right femoral head has progressed. There is mild flattening of the right femoral head. Sclerosis within the right acetabulum has progressed. No fractures within the pelvis or hips are identified. There is mild left hip osteoarthritis. IMPRESSION: 1. Progression of severe right hip osteoarthritis, as described above. 2. No fractures within the pelvis or hips. ACT 112: Negative or not required by law. Electronically signed by: Jaiden Hicks M.D. 09/22/2022 3:11 PM
[2022-09-22 15:21] LABS: Appearance Synovial Fluid Hazy; Color Synovial Fluid Straw; Mononuclear WBC Synovial 59.4 %; Polynuclear WBC Synovial 40.6 %; RBC Synovial Fluid Auto < 2000 /uL; Source Synovial Fluid Right Hip; WBC Synovial Fluid Auto 179 /ul (0-200)
[2022-09-22] MEDS: diazePAM 5 MG TABLET PO PRN (15:42)
[2022-09-22] MEDS ORDERED: ACETAMINOPHEN 500 MG TAB PO PRN (16:31)
[2022-09-22] MEDS: oxyCODONE HCL IR 5 MG TAB (IMMEDIATE RELEASE) PO PRN (16:48)
[2022-09-22] MEDS: tiZANidine HCL 4 MG TABLET PO SCH (20:51)
[2022-09-22] MEDS ORDERED: ARTIFICIAL TEARS OP PRN (21:00)
[2022-09-22] MEDS: SENNA 8.6 MG TAB PO PRN (21:06)
[2022-09-23] MEDS: oxyCODONE HCL IR 5 MG TAB (IMMEDIATE RELEASE) PO PRN (01:39)
[2022-09-23 07:34] LABS: Basophils # (auto) 0.04 K/uL (0-0.2); Basophils % (auto) 0.5 %; Eosinophils # (auto) 0.26 K/uL (0-0.50); Eosinophils % (auto) 3.2 %; Hematocrit (blood only) 25.2 % (37.0-47.0); Immature Granulocytes # (auto) 0.04 K/uL (0.01-0.20); Immature Granulocytes % (auto) 0.5 %; Mean Corpuscular Hemoglobin 28.7 pg (25.0-34.0); Mean Corpuscular Hgb Conc 31.7 g/dL (32.0-36.0); Mean Corpuscular Volume 90.3 fL (80.0-100.0); Mean Platelet Volume 9.9 fL (9.4-12.4); Monocytes % (auto) 9.8 %; Neutrophils # (auto) 5.23 K/uL (1.40-6.50); Platelet Count 387 K/uL (130-400); RDW Coefficient of Variation 12.6 % (11.5-14.5); RDW Standard Deviation 42.2 fL (36.4-46.3); Red Blood Count 2.79 M/uL (4.20-5.40); White Blood Count 8.17 K/ul (4.8-10.8)
[2022-09-23 07:52] LABS: BUN Creatinine Ratio 13.5 (10-20); Calcium 8.8 mg/dl (8.6-10.3); Est GFR (African American) 58.8 ml/min; Est GFR (Non-African American) 50.7 ml/min; Magnesium 1.8 mg/dl (1.7-2.4)
[2022-09-23] MEDS: PANTOprazole 40 MG TAB PO SCH ×2 (09:24→21:03)
[2022-09-23] MEDS: PARoxetine HCL 20 MG TAB PO SCH (09:24)
[2022-09-23] MEDS: SENNA 8.6 MG TAB PO PRN (09:25)
[2022-09-23] MEDS: CALCIUM 600MG + VIT D 400 IU TAB PO SCH (09:25)
[2022-09-23] MEDS: CHOLECALCIFEROL 1,000 UNITS 25 MCG TAB PO SCH (09:25)
[2022-09-23] MEDS: DULoxetine HCL 30 MG CAP PO SCH ×3 (09:25→21:04)
[2022-09-23] MEDS: POLYETHYLENE (MIRALAX) 17 GM PACK PO SCH ×2 (09:25→21:05)
[2022-09-23] MEDS: GABAPENTIN 100 MG CAP PO SCH ×2 (09:25→21:02)
[2022-09-23] MEDS: HEPARIN SOD 5,000 UNIT/0.5 ML VIAL SQ SCH ×2 (09:29→21:01)
[2022-09-23] MEDS: VALSARTAN 80 MG TAB PO SCH (10:19)
[2022-09-23] MEDS: diazePAM 5 MG TABLET PO PRN (13:34)
--- NOTE | 2022-09-23 14:11 | Orthopedic Progress Note ---
Date of Service September 23, 2022 Assessment & Plan (1) Hip arthritis: Plan: Radiographs demonstrate severe osteoarthritis of the right hip. This is progressed compared to several months ago. Etiology not clear. The aspiration showed fluid with very few white cells. Not even consistent with inflammation. Cultures no growth to date and crystals were negative. Therefore I think that her right hip area pain is due to severe arthritis. Options are #1 live with it. #2 medications like Tylenol which have not worked for her or an anti-inflammatory. In that regards she is anemic which is a relatively new finding based upon her historical labs. GI bleeding is a possibility and this is a reason to avoid NSAIDs for now. Another option is a cortisone shot. She is in favor of doing this. We can make arrangements to do that here as an inpatient or she can do it as an outpatient in our office. Last option is hip replacement. She may end up needing this. It does not need to be done acutely. Referring back to the anemia that would need to be addressed in terms of etiology as well as corrected if possible. We will continue to monitor. Admission and Anticipated Discharge Date Admission Date: September 21, 2022 Subjective Hip feels the same. She is able to get up and around. Results & Data Vital Signs (Past 12 Hours) Vital Signs Temp Pulse Resp BP Pulse Ox O2 Del Method 09/23/22 07:43 37.5 C 79 18 172/78 H 97 Room Air
--- NOTE | 2022-09-23 17:29 | Hospitalist Progress Note ---
Date of Service September 23, 2022 Assessment & Plan (1) Acute hip pain: Plan: Patient with acute on chronic right hip pain that is effecting her ability to ambulate and reported decline in funcitonal ability. - MRI progressive worsening oa, no signs of clinical infection- appreciate Orthopaedics consultation -Orthopedic consult ordered joint aspiration which initially does not look infectious crystals negative, will consider OA, consider joint injection Orthopedic spine consult feels not acute changes but chronic changes which may warrant surgical intervention in the future - PT/OT consultation - Tiered pain regime- Voltaren gel, Scheduled Tylenol, PRN Motrin, Oxy IR 5mg for severe pain, Morphine for pain uncontrolled -Patient is very specific about her medications requesting Cymbalta 3 times daily although med reconciliation states she is only prescribed a twice daily continuing gabapentin twice daily continuing Valium 3 times daily as needed (2) Osteoarthritis: Plan: Right hip and back are noted on MRI imaging of significant degeneration right knee on plain film shows no acute bony abnormality no surgical interventional for spine, consider conservative treatment of hip prior to considering surgery PT OT evaluation (3) Ambulatory dysfunction: Plan: Patient and her hip and back prevent appropriate ambulation PT OT evaluation pending continue with multimodal pain control (4) Irritable bowel syndrome (IBS): Plan: Continue with Miralax food intolerance with gluten and lactose- avoid (5) 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 - Continue gabapentin - Continue Paroxetine -Continue Duloxetine - PRN Valium (6) Hypertension: Plan: Chronic controlled - Continue ARB (7) Anemia: Plan: Chronic normocytic, is iron deficient - She reports no change in bowel habits or epigastric pain- - Is taking ASA at home for cardiovascular protection - Adding PPI while in house as she has PRN ibuprofen ordered - Admission and Anticipated Discharge Date Admission Date: September 21, 2022 Subjective Patient states she continues with 6 out of 10 and nonradicular hip and back pain mostly surrounding her right hip Patient does have some tangential discussions regarding multiple medical issues over time Continues to express displeasure at the apparent infection I personally discussed with Dr. Dalton about the plan of moving forward with her hip pain Physical Exam Physical Exam: Patient appears in mild distress She had no radicular neurological symptoms noted no weakness or absent sensation at this time Results & Data Results & Data Vital Signs (Past 12 Hours) Vital Signs Temp Pulse Resp BP Pulse Ox O2 Del Method 09/23/22 15:20 98.4 F 84 18 147/69 H 94 Room Air 09/23/22 07:43 99.5 F 79 18 172/78 H 97 Room Air PG Care Time/CCT Total # of Minutes Spent Total Time Spent with Patient: Total time spent is greater than 50% in coordination of care (as documented) at patient's floor/unit and/or counseling patient: Coding Level of Care Code 34739 SUB INP/OBS CARE 2/35MIN Diagnoses Acute hip pain M25.551 Laterality: right Osteoarthritis M19.90 Ambulatory dysfunction R26.2 Irritable bowel syndrome (IBS) K58.9 Post traumatic stress disorder F43.10 Hypertension I10 Hypertension type: unspecified Anemia D64.9 Anemia type: unspecified type (1) Acute hip pain Laterality: right Qualified Code(s): M25.551 - Pain in right hip (6) Hypertension Hypertension type: unspecified Qualified Code(s): I10 - Essential (primary) hypertension (7) Anemia Anemia type: unspecified type Qualified Code(s): D64.9 - Anemia, unspecified
[2022-09-23] MEDS: tiZANidine HCL 4 MG TABLET PO SCH (21:04)
[2022-09-24 07:22] LABS: Basophils # (auto) 0.04 K/uL (0-0.2); Basophils % (auto) 0.6 %; Eosinophils # (auto) 0.15 K/uL (0-0.50); Eosinophils % (auto) 2.3 %; Hematocrit (blood only) 23.9 % (37.0-47.0); Hemoglobin 7.7 g/dl (12.0-16.0); Immature Granulocytes # (auto) 0.02 K/uL (0.01-0.20); Immature Granulocytes % (auto) 0.3 %; Lymphocytes # (auto) 1.57 K/uL (1.2-3.4); Lymphocytes % (auto) 24.3 %; Mean Corpuscular Hemoglobin 28.6 pg (25.0-34.0); Mean Corpuscular Hgb Conc 32.2 g/dL (32.0-36.0); Mean Corpuscular Volume 88.8 fL (80.0-100.0); Mean Platelet Volume 10.1 fL (9.4-12.4); Monocytes # (auto) 0.73 K/uL (0.11-0.59); Monocytes % (auto) 11.3 %; Neutrophils # (auto) 3.94 K/uL (1.40-6.50); Neutrophils % (auto) 61.2 %; Platelet Count 332 K/uL (130-400); RDW Coefficient of Variation 12.8 % (11.5-14.5); RDW Standard Deviation 41.3 fL (36.4-46.3); Red Blood Count 2.69 M/uL (4.20-5.40); White Blood Count 6.45 K/ul (4.8-10.8)
[2022-09-24 07:42] LABS: BUN Creatinine Ratio 15.7 (10-20); Creatinine Clr Calc Pharmacy 39.8 ml/min; Est GFR (African American) 60.2 ml/min; Est GFR (Non-African American) 51.9 ml/min; Magnesium 1.9 mg/dl (1.7-2.4)
[2022-09-24 07:55] LABS: Polychromasia 1+
[2022-09-24] MEDS: VALSARTAN 80 MG TAB PO SCH (07:59)
[2022-09-24] MEDS: PARoxetine HCL 20 MG TAB PO SCH (07:59)
[2022-09-24] MEDS: DULoxetine HCL 30 MG CAP PO SCH ×3 (08:18→20:17)
[2022-09-24] MEDS: PANTOprazole 40 MG TAB PO SCH ×2 (08:18→20:16)
[2022-09-24] MEDS: CALCIUM 600MG + VIT D 400 IU TAB PO SCH (08:18)
[2022-09-24] MEDS: CHOLECALCIFEROL 1,000 UNITS 25 MCG TAB PO SCH (08:18)
[2022-09-24] MEDS: GABAPENTIN 100 MG CAP PO SCH ×2 (08:19→20:15)
[2022-09-24] MEDS: POLYETHYLENE (MIRALAX) 17 GM PACK PO SCH ×2 (08:28→20:18)
[2022-09-24] MEDS: HEPARIN SOD 5,000 UNIT/0.5 ML VIAL SQ SCH ×2 (08:28→20:15)
--- NOTE | 2022-09-24 08:28 | Hospitalist Progress Note ---
Date of Service September 24, 2022 Assessment & Plan (1) Acute hip pain: Plan: Patient with acute on chronic right hip pain that is effecting her ability to ambulate and reported decline in funcitonal ability. - MRI as per HPI- appreciate Orthopaedics consultation - current impression as reported to me is inflammatory in nature- with her hx of injections ? necrosis - CRP 1.6 with ESR- 32, No leukocytosis and PCT negative - PT/OT consultation - Tiered pain regime- Voltaren gel, Scheduled Tylenol, PRN Motrin, Oxy IR 5mg for severe pain, Morphine for pain uncontrolled - consider increase neurontin pt is resistant to this - for IR possible joint injection this week (2) Anemia: Plan: Chronic normocytic, iron minorly low but binding capacity is normal, concern for chronic disease but will need to rule out blood loss - She reports no change in bowel habits or epigastric pain-no melena - Is taking ASA at home, now on hold - bid ppi and stop nsaids may need GI evaluation as hgb trends downward, previously did see [facility] - (3) Osteoarthritis: Plan: Oa of hip and spine, inflammatory markers are also up but fluid analysis does not show labs cw infection/gout I did personally speak to Dr. 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 Dalton about the plan of moving forward with her hip pain Physical Exam Physical Exam: Patient appears in mild distress She had no radicular neurological symptoms noted no weakness or absent sensation at this time Results & Data Results & Data Vital Signs (Past 12 Hours) Vital Signs Temp Pulse Resp BP Pulse Ox O2 Del Method 09/23/22 22:19 98.2 F 79 18 103/60 94 Room Air Laboratory Results reviewed CBC reviewed chemistry PG Care Time/CCT Total # of Minutes Spent Total Time Spent with Patient: Total time spent is greater than 50% in coordination of care (as documented) at patient's floor/unit and/or counseling patient: Coding Level of Care Code 81035 SUB INP/OBS CARE 2/35MIN Diagnoses Acute hip pain M25.551 Laterality: right Anemia D64.9 Anemia type: unspecified type Osteoarthritis M19.90 Irritable bowel syndrome (IBS) K58.9 Post traumatic stress disorder F43.10 Hypertension I10 Hypertension type: unspecified (1) Acute hip pain Laterality: right Qualified Code(s): M25.551 - Pain in right hip (2) Anemia Anemia type: unspecified type Qualified Code(s): D64.9 - Anemia, unspecified (6) Hypertension Hypertension type: unspecified Qualified Code(s): I10 - Essential (primary) hypertension
[2022-09-24] MEDS: SENNA 8.6 MG TAB PO PRN (09:22)
[2022-09-24] MEDS: diazePAM 5 MG TABLET PO PRN (13:59)
[2022-09-24] MEDS: DICLOFENAC SOD 1% GEL 100 GM TUBE EXT SCH ×2 (17:04→20:19)
[2022-09-24] MEDS: tiZANidine HCL 4 MG TABLET PO SCH (20:17)
[2022-09-25 06:31] LABS: Hematocrit (blood only) 21.7 % (37.0-47.0); Hemoglobin 7.1 g/dl (12.0-16.0); Mean Corpuscular Hemoglobin 28.4 pg (25.0-34.0); Mean Corpuscular Hgb Conc 32.7 g/dL (32.0-36.0); Mean Corpuscular Volume 86.8 fL (80.0-100.0); Mean Platelet Volume 9.8 fL (9.4-12.4); Platelet Count 258 K/uL (130-400); RDW Coefficient of Variation 12.6 % (11.5-14.5); RDW Standard Deviation 40.5 fL (36.4-46.3); White Blood Count 5.43 K/ul (4.8-10.8)
[2022-09-25 06:57] LABS: Calcium 8.8 mg/dl (8.6-10.3); Creatinine Clr Calc Pharmacy 43.1 ml/min; Est GFR (African American) 66.4 ml/min; Est GFR (Non-African American) 57.3 ml/min; Potassium 4.2 mmol/L (3.5-5.1)
[2022-09-25] MEDS ORDERED: IRON POLYSACCHARIDE COMPLEX 150 MG CAPSULE PO SCH (09:00)
[2022-09-25] MEDS: PANTOprazole 40 MG TAB PO SCH (09:19)
[2022-09-25] MEDS: GABAPENTIN 100 MG CAP PO SCH ×2 (09:19→22:14)
[2022-09-25] MEDS: DULoxetine HCL 30 MG CAP PO SCH ×3 (09:19→22:14)
[2022-09-25] MEDS: PARoxetine HCL 20 MG TAB PO SCH (09:19)
[2022-09-25] MEDS: POLYETHYLENE (MIRALAX) 17 GM PACK PO SCH ×2 (09:20→22:15)
[2022-09-25] MEDS: VALSARTAN 80 MG TAB PO SCH (09:20)
[2022-09-25] MEDS: CALCIUM 600MG + VIT D 400 IU TAB PO SCH (09:21)
[2022-09-25] MEDS: HEPARIN SOD 5,000 UNIT/0.5 ML VIAL SQ SCH ×2 (09:22→22:12)
[2022-09-25] MEDS: CHOLECALCIFEROL 1,000 UNITS 25 MCG TAB PO SCH (09:32)
[2022-09-25] MEDS: DICLOFENAC SOD 1% GEL 100 GM TUBE EXT SCH ×2 (09:54→22:15)
[2022-09-25] MEDS ORDERED: SODIUM CHLORIDE 0.9% 250 ML IV PRN (11:30)
[2022-09-25] MEDS: diazePAM 5 MG TABLET PO PRN ×2 (14:03→22:25)
--- NOTE | 2022-09-25 14:28 | Hospitalist Progress Note ---
Date of Service September 25, 2022 Assessment & Plan (1) Acute hip pain: Plan: Patient with acute on chronic right hip pain that is effecting her ability to ambulate and reported decline in funcitonal ability. - MRI as per HPI- appreciate Orthopaedics consultation - current impression as reported to me is inflammatory in nature- with her hx of injections ? necrosis - CRP 1.6 with ESR- 32, No leukocytosis and PCT negative - PT/OT consultation - Tiered pain regime- Voltaren gel, Scheduled Tylenol, PRN Motrin, Oxy IR 5mg for severe pain, Morphine for pain uncontrolled - consider increase neurontin pt is resistant to this - for IR possible joint injection this week (2) Anemia: Plan: normocytic, iron minorly low but binding capacity is normal, trended downward during her hospital stay hemodynamically stable at this time - She reports no change in bowel habits or epigastric pain-no melena - Is taking ASA at home, now on hold - bid ppi and stop nsaids with hemoglobin now dropping to 7.1 consented for blood product may need GI evaluation as hgb trends downward, previously did see [facility] will have n.p.o. after midnight on 09/25/2022 - (3) Osteoarthritis: Plan: Oa of hip and spine, inflammatory markers are also up but fluid analysis does not show labs cw infection/gout I did personally speak to Dr. He regarding her spine images however consult is not been placed in the chart (4) Irritable bowel syndrome (IBS): Plan: Continue with Miralax food intolerance with gluten and lactose- avoid (5) 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 - Continue gabapentin - Continue Paroxetine -Continue Duloxetine - PRN Valium (6) Hypertension: Plan: Chronic controlled - Continue ARB Admission and Anticipated Discharge Date Admission Date: September 21, 2022 Subjective today's discussion centered on her anemia. Patient has no overt signs of blood loss no melena. Patient does have some minor epigastric discomfort but does have chronic bowel habit problems including irritable bowel. She has never had a stress ulcer or other ulcers as far she knows. We did discuss consent for blood ordered 2 units packed red blood cells patient be kept n.p.o. after midnight with GI consultation in the morning for possible upper endoscopy pt has schedule for IR hip injection this week starting with some voltaren gel to help adjunctive pain control, pt is intolerant to many pain medicines I personally discussed with Dr. Dalton about the plan of moving forward with her hip pain Physical Exam Physical Exam: Patient appears in mild distress She had no radicular neurological symptoms noted no weakness or absent sensation at this time abdomen is soft and nontender there is maybe mild epigastric distress but not severe Results & Data Results & Data Vital Signs (Past 12 Hours) Vital Signs Temp Pulse Pulse Resp BP BP Pulse Ox 09/25/22 14:00 98.4 F 81 18 152/66 H 99 09/25/22 13:00 98.1 F 77 16 124/68 99 09/25/22 12:31 97.5 F L 84 16 149/68 H 95 09/25/22 12:15 98.9 F 87 18 151/71 H 96 09/25/22 11:57 97.5 F L 79 18 130/49 L 95 09/25/22 07:14 97.7 F 91 H 18 163/76 H 96 O2 Del Method 09/25/22 14:00 09/25/22 13:00 09/25/22 12:31 09/25/22 12:15 09/25/22 11:57 09/25/22 07:14 Room Air Laboratory Results reviewed CBC reviewed chemistry PG Care Time/CCT Total # of Minutes Spent Total Time Spent with Patient: Total time spent is greater than 50% in coordination of care (as documented) at patient's floor/unit and/or counseling patient: Coding Level of Care Code 71634 SUB INP/OBS CARE 3/50MIN Diagnoses Acute hip pain M25.551 Laterality: right Anemia D64.9 Anemia type: unspecified type Osteoarthritis M19.90 Irritable bowel syndrome (IBS) K58.9 Post traumatic stress disorder F43.10 Hypertension I10 Hypertension type: unspecified (1) Acute hip pain Laterality: right Qualified Code(s): M25.551 - Pain in right hip (2) Anemia Anemia type: unspecified type Qualified Code(s): D64.9 - Anemia, unspecified (6) Hypertension Hypertension type: unspecified Qualified Code(s): I10 - Essential (primary) hypertension
[2022-09-25] MEDS: tiZANidine HCL 4 MG TABLET PO SCH (22:13)
[2022-09-25] MEDS: PANTOprazole 40 MG in SYRINGE 0 ML IV SCH (22:32)
[2022-09-26 07:17] LABS: Hemoglobin 10.5 g/dl (12.0-16.0); Mean Corpuscular Hemoglobin 29.3 pg (25.0-34.0); Mean Corpuscular Volume 83.8 fL (80.0-100.0); Platelet Count 268 K/uL (130-400); RDW Coefficient of Variation 13.2 % (11.5-14.5); RDW Standard Deviation 40.5 fL (36.4-46.3); Red Blood Count 3.58 M/uL (4.20-5.40); White Blood Count 5.89 K/ul (4.8-10.8)
[2022-09-26] MEDS: DICLOFENAC SOD 1% GEL 100 GM TUBE EXT SCH ×2 (08:13→20:06)
[2022-09-26] MEDS ORDERED: methylPREDNISolone acetate 40 MG/ML VIAL ONE (10:07)
[2022-09-26] MEDS ORDERED: ORTHO JOINT ANESTHETIC ONE (10:20)
--- NOTE | 2022-09-26 10:57 | Gastrointestinal Consultation ---
Date of Consultation September 26, 2022 Assessment & Plan (1) Anemia: Pt is a 82 yo female seen for anemia (low iron, B12 and FA normal). No gross GI bleeding noted. She is not anticoagulated. However takes high dose ASA regularly and month ago was on Prednisone for R hip pain due to severe OA. Last colonoscopy in 2017 w findings of diverticulosis, int hemorrhoids, hyperplastic & adenomatous colon polyps. - Monitor for any GI bleeding symptoms - Monitor blood ct and transfuse prn - Start PO iron supplements - Cover w PPI PO BID - Will arrange outpt EGD and colonoscopy evaluations - GI to sign off; pls recall prn Supervising Physician Co-Signing Physician Notes I personally saw and evaluated the patient on 09/26/2022 with MARY Frey and agree with her findings and plan of care. On exam abdomen is soft and non-tender. She is very focused on her hip pain on exam and tells me she "will not be leaving the hospital until they are able to solve this for me." Denies any history of GI bleeding. Denies NSAID use at home and states she only takes a Chano aspirin for pain control. Has not had any overt bleeding including melena, hematochezia, or hematemesis. Has never had an EGD before and last colonoscopy was in 2017 with 2 polyps removed. We will arrange for outpatient EGD and colonoscopy to evaluate her anemia which patient is agreeable. No need for inpatient endoscopy in the absence of any overt GI bleeding. Continue to trend H/H and monitor for any overt bleeding. Avoid NSAIDs. GI will sign off but please call back with questions. Dominique Guerin, DO Gastroenterology and Hepatology History of Present Illness Reason for Consultation: Anemia Requesting Physician: Dr. Ant Montes Attending Physician: Dr. Dominique Guerin History of Present Illness Pt is a 82 years old female with past medical history is including IBS, PTSD, depression, anxiety, hypertension, CKD, osteoarthritis who is admitted for right hip pain suspected due to severe osteoarthritis. She was receiving cortisone injection for this pain. Anticipating that she has this done again today. GI is consulted as patient has findings of anemia. Baseline hemoglobin 13 about 2 months ago, was down to 7 status post 2 units PRBC transfusion yesterday. Hemoglobin now up to 10. Patient denies any recent black tarry stools or rectal bleeding. Over a month ago she had 1 episode of dark stools when she was on aspirin and prednisone. She denies any chest pain, shortness of breath, abdominal pain, nausea or vomiting, changes in her appetite, nor unintentional weight loss. She takes up to 500 mg Chano aspirin for arthritis pain but denies any NSAIDs. Denies any tobacco, alcohol or marijuana uses. Colonoscopy done in 2017 showed hyperplastic and adenomatous colon polyp, internal hemorrhoids and diverticulosis. She has never had an upper endoscopy before. She denies any family history of IBD or colorectal cancer. Allergies Allergy/AdvReac Type Severity Reaction Status Date / Time prednisone AdvReac Severe TROUBLE Verified 09/21/22 18:35 WITH BLADDER CONTROL gluten AdvReac Intermediate Gastrointestinal Verified 09/21/22 18:35 Upset lactose AdvReac Intermediate Gastrointestinal Verified 09/21/22 18:35 Upset Home Medications Medication Instructions Recorded Confirmed Type cyclosporine 0.05 % eye drops in a 1 drp ophthalmic (eye) Q12H 01/09/18 09/21/22 History dropperette (Restasis) diazepam 5 mg tablet 5 mg PO TID PRN Anxiety 01/09/18 09/21/22 History duloxetine 30 mg capsule,delayed 30 mg PO BID 01/09/18 09/21/22 History release polyethylene glycol 3350 17 1 dose PO QAM 01/09/18 09/21/22 History gram/dose oral powder (Miralax) tizanidine 4 mg capsule (Zanaflex) 2 mg PO HS 01/09/18 09/21/22 History valsartan 80 mg tablet 80 mg PO QAM 01/09/18 09/21/22 History gabapentin 100 mg capsule 200 mg PO BID 06/04/18 09/21/22 History red yeast rice 600 mg capsule 1,200 mg PO QAM 05/08/19 09/21/22 History aspirin 325 mg tablet,delayed 325 mg PO TID PRN Pain 08/13/20 09/21/22 History release paroxetine HCl 40 mg tablet (Paxil) 40 mg PO DAILY 08/13/20 09/21/22 History peppermint oil 1 applic topical DIRECTED PRN 08/13/20 09/21/22 History Pain psyllium husk 3 gram/5.4 gram oral 1 tbsp PO HS 08/13/20 09/21/22 History powder apple cider vinegar 500 mg tablet 500 mg PO DAILY NEEDED 10/01/20 09/21/22 History cholecalciferol (vitamin D3) 50 50 mcg PO DAILY 10/01/20 09/21/22 History mcg (2,000 unit) capsule triamcinolone acetonide 0.1 % 1 applic topical BID #80 grams 06/17/22 09/21/22 Rx topical ointment glycopyrronium tosylate 2.4 % 1 applic topical DAILY #30 ea 07/28/22 09/21/22 Rx towelette (Qbrexza) calcium carbonate 600 mg calcium 600 mg PO DAILY 07/30/22 09/21/22 History (1,500 mg) tablet (Calcium) diclofenac sodium 1 % topical gel 2 g topical QID PRN pain #100 grams 08/02/22 09/21/22 Rx (Voltaren Arthritis Pain) Patient History Medical History Anxiety Bursitis Cardiac murmur dx within last few years Cervical spinal stenosis Chronic back pain Chronic kidney disease STAGE 3 > doesn't follow anyone for this > pt denies Depression Hypertension Irritable bowel syndrome (IBS) Osteoarthritis Osteoporosis Post traumatic stress disorder Surgical History History of carpal tunnel release BILATERAL History of cataract surgery BILATERAL History of cholecystectomy LAP History of colonoscopy History of esophagogastroduodenoscopy (EGD) History of lumpectomy of left breast History of open reduction and internal fixation (ORIF) procedure LEFT ANKLE History of salpingo-oophorectomy S/P BRETT (total abdominal hysterectomy) Family History Father Alcoholic Prostate cancer Hypertension Mother CHF (congestive heart failure) Glaucoma Obesity Social History Smoking Status: Former smoker Tobacco Type: Cigarettes Second Hand Exposure: No; Do You Dip or Chew Tobacco: No; Hx Alcohol Use: No Hx Substance Use: No Preferred Language: Monegasque Communication Ability: Effective Mandate Retail Service Merchandiser Required: No Beliefs That Will Affect Care: None marital status: Current Living Situation: Alone Current Living Situation Comment: Pt. lives at [facility], states she is to be evicted current occupational status: employed current occupation: [employer] Other Information That Helps Us Care for You: No Feels Safe at Home: Yes Safety Concerns: Feels Safe At This Time Assistive Devices: Cane and Walker Review of Systems Review of Systems: All systems reviewed & are unremarkable except as noted in HPI & below Physical Exam Constitutional: WD/WN, vitals as above well groomed, cooperative and comfortable Eyes: PERRL, conjunctivae normal, anicteric sclerae ENMT: external ear and nose normal, oropharynx normal Respiratory: normal respiratory effort, lungs clear to auscultation Cardiovascular: RRR, no murmur, no edema Gastrointestinal (Abdomen): normal bowel sounds, soft, nontender, no hepatosplenomegaly Skin: no rashes, warm and dry no jaundice Psychiatric: A+Ox3, euthymic affect Lymphatic: no lymphedema (1) Anemia Anemia type: unspecified type Qualified Code(s): D64.9 - Anemia, unspecified
[2022-09-26] MEDS: CALCIUM 600MG + VIT D 400 IU TAB PO SCH (11:00)
[2022-09-26] MEDS ORDERED: Nursing to Pharmacy Communication SCH (11:00)
[2022-09-26] MEDS: GABAPENTIN 100 MG CAP PO SCH ×2 (11:01→20:06)
[2022-09-26] MEDS: DULoxetine HCL 30 MG CAP PO SCH ×3 (11:01→20:06)
[2022-09-26] MEDS: PARoxetine HCL 20 MG TAB PO SCH (11:01)
[2022-09-26] MEDS: VALSARTAN 80 MG TAB PO SCH (11:01)
[2022-09-26] MEDS: CHOLECALCIFEROL 1,000 UNITS 25 MCG TAB PO SCH (11:07)
[2022-09-26] MEDS: HEPARIN SOD 5,000 UNIT/0.5 ML VIAL SQ SCH ×3 (11:10→22:04)
[2022-09-26] MEDS: POLYETHYLENE (MIRALAX) 17 GM PACK PO SCH ×2 (11:10→20:06)
[2022-09-26] MEDS: PANTOprazole 40 MG in SYRINGE 0 ML IV SCH ×3 (11:10→22:04)
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
[2022-09-26] MEDS ORDERED: KETOTIFEN OP PRN (11:30)
--- NOTE | 2022-09-26 14:47 | Fluoroscopy Report ---
FLUOROSCOPIC GUIDED RIGHT HIP STEROID INJECTION COMPARISON STUDY: Right hip pain PROCEDURE: Procedure and risks were explained. Informed consent was obtained. A final timeout was com pleted. The patient was placed supine on the fluoroscopic exam table. The right hip was prepped and d raped in sterile fashion. 1% buffered lidocaine was utilized for skin anesthesia. Utilizing fluoroscopic guidance, a 22-gauge needle was advanced into the right hip joint capsule. Gena roximately 1 mL of iodinated contrast was injected confirming intra-articular needle position. Perman ent spot image was obtained. 40 mg Depo-Medrol and 3 mL of 1% lidocaine was injected. The needle was removed and Band-Aid applied. The patient tolerated the procedure well. Total fluoroscopy time is 16 seconds. DAP is 1.06 mcGy/m2. IMPRESSION: Right hip steroid injection as detailed above. Performed, dictated, and signed by Zachary Ying PA-C; to be co-signed by Dr. Justin Velez. Electronically signed by: Justin Velez M.D. 09/26/2022 2:58 PM
[2022-09-26] MEDS: diazePAM 5 MG TABLET PO PRN (15:31)
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
[2022-09-26] MEDS: tiZANidine HCL 4 MG TABLET PO SCH (22:03)
[2022-09-27 06:59] LABS: Hematocrit (blood only) 33.5 % (37.0-47.0); Hemoglobin 11.3 g/dl (12.0-16.0); Mean Corpuscular Hemoglobin 29.1 pg (25.0-34.0); Mean Corpuscular Hgb Conc 33.7 g/dL (32.0-36.0); Mean Corpuscular Volume 86.3 fL (80.0-100.0); Mean Platelet Volume 9.9 fL (9.4-12.4); Platelet Count 309 K/uL (130-400); RDW Standard Deviation 40.6 fL (36.4-46.3); Red Blood Count 3.88 M/uL (4.20-5.40); White Blood Count 4.89 K/ul (4.8-10.8)
[2022-09-27 07:17] LABS: BUN Creatinine Ratio 18.5 (10-20); Calcium 9.4 mg/dl (8.6-10.3); Creatinine Clr Calc Pharmacy 50.1 ml/min; Est GFR (African American) 79.5 ml/min; Est GFR (Non-African American) 68.6 ml/min; Potassium 4.5 mmol/L (3.5-5.1)
--- NOTE | 2022-09-27 07:55 | Orthopedic Progress Note ---
Date of Service September 27, 2022 Assessment & Plan (1) Hip arthritis: Plan: Will monitor. Weight-bear as tolerated. Walker or assistive device as needed. Hip Aspiration fluid consistent with arthritis. No infection. May follow-up as an outpatient as needed. Anemia needs addressed and corrected prior to any surgical intervention for her hip. Thank you Admission and Anticipated Discharge Date Admission Date: September 21, 2022 Subjective This is the injection appears to have improved the right hip pain. Still crepitation. Physical Exam Physical Exam: Ambulating independently with minor limp without walker Results & Data Vital Signs (Past 12 Hours) Vital Signs Temp Pulse Pulse Resp BP BP Pulse Ox 09/27/22 07:16 36.5 C 81 18 170/83 H 98 09/26/22 23:04 36.4 C 75 16 110/62 95 09/26/22 20:05 O2 Del Method 09/27/22 07:16 Room Air 09/26/22 23:04 Room Air 09/26/22 20:05 Room Air
[2022-09-27] MEDS: DULoxetine HCL 30 MG CAP PO SCH ×2 (08:35→13:44)
[2022-09-27] MEDS: HEPARIN SOD 5,000 UNIT/0.5 ML VIAL SQ SCH (08:35)
[2022-09-27] MEDS: PARoxetine HCL 20 MG TAB PO SCH (08:36)
[2022-09-27] MEDS: PANTOprazole 40 MG in SYRINGE 0 ML IV SCH (08:36)
[2022-09-27] MEDS: GABAPENTIN 100 MG CAP PO SCH (08:36)
[2022-09-27] MEDS: POLYETHYLENE (MIRALAX) 17 GM PACK PO SCH (08:37)
[2022-09-27] MEDS: VALSARTAN 80 MG TAB PO SCH (08:37)
[2022-09-27] MEDS: CHOLECALCIFEROL 1,000 UNITS 25 MCG TAB PO SCH (08:37)
[2022-09-27] MEDS: CALCIUM 600MG + VIT D 400 IU TAB PO SCH (08:38)
[2022-09-27] MEDS: DICLOFENAC SOD 1% GEL 100 GM TUBE EXT SCH (08:40)
[2022-09-27] MEDS: diazePAM 5 MG TABLET PO PRN (13:46)
--- NOTE | 2022-09-27 16:31 | Discharge Summary ---
Date of Service September 27, 2022 Admission HPI Per Admitting Provider 82 YOF with medical history of: Chronic right hip pain, ambulatory dysfunction, PTSD/Anxiety, Osteoperosis, DJD, HTN, Hypothyroidism, IBS. Patient comes to the [facility] today for complaints of right hip/leg pain, that she reports has acutely worsened over the past 2 weeks to the point that she reports is unable to bear weight on. She attempts to walk with a cane and/or walker, however she feels that her hip will "pop out and then her right knee will click and buckle". Patient reports that she is being evicted and has been moving boxes and may have also bumped into a corner of a counter that made it much worse. Patient reports history of chronic injections in the right hip by Dr. Curry. She was previously admitted in July for similar symptoms/complaints. She was sent to rehab at that time, she reports that the physical therapy made her pain worse and then the pain consistency changed to become more severe- radiate from her lower back around to her groin, as well as down her leg into her feet; as well as the popping of her hip and knee. She reports that she only takes 500mg of Enter-coated aspirin for her pain and no other modalities. Nothing makes it better, and everything makes it worse. In the EMD the patient had MRI of lumbar spine as ell as her right hip. She was given Fentanyl for pain which she has had some relief from. Her MRI results were interpreted as "significant progression of severe right hip osteoarthritis with significant progression since radiographs in July 2022." Infection was discussed with EMD provider and radiologist and Orthopaedist therapeutic consultant Dr. Appiah- recommendations were reported infection as less likely- ESR was checked which is 32 and CRP of 1.61. There is no pain with palpation of hip bursa and no errythema around hip/back/knee. She is however with femoral click at the knee. Patient will be admitted for pain control, orthopaedics evaluation, as well as obtain plain films of her right knee. CODE: DNR/DNI COVID: NEGATIVE Principal Diagnosis acute on chronic hip and back pain status post aspiration of hip joint with eventual steroid injection with improvement in gait acute on chronic anemia status post transfusions units red blood cells with outpatient follow-up recommended with [facility] gastroenterology explosive personality disorder Discharge Exam patient was fine until discharge and she became irate yelling. She is able to ambulate with physical therapy prior to leaving 150 feet.LFTs improving Discharge Data Allergies Allergy/AdvReac Type Severity Reaction Status Date / Time prednisone AdvReac Severe TROUBLE Verified 09/21/22 18:35 WITH BLADDER CONTROL gluten AdvReac Intermediate Gastrointestinal Verified 09/21/22 18:35 Upset lactose AdvReac Intermediate Gastrointestinal Verified 09/21/22 18:35 Upset Consultations 09/21/22 19:30 ED Decision to Admit Stat 09/21/22 22:02 Consult Orthopedic Surgery Routine 09/26/22 00:40 Consult Psychiatry Routine 09/26/22 08:20 Consult Gastroenterology Routine Ordered Studies 09/21/22 12:59 MR hip RT wo con Stat MR lumbar spine wo con Stat 09/22/22 11:55 Fluoro hip [IR inj majr joint sh,hip,kn RT] Urgent 09/26/22 IR inj majr joint sh,hip,kn RT Routine Hospital Course (1) Acute hip pain: Patient with acute on chronic right hip pain that is effecting her ability to ambulate and reported decline in functional ability. - MRI as per HPI- appreciate Orthopaedics consultation - CRP 1.6 with ESR- 32, No leukocytosis and PCT negative - PT/OT consultation patient able ambulate without difficulty - Tiered pain regime- Voltaren gel, Scheduled Tylenol, PRN Motrin, Oxy IR 5mg for severe pain, Morphine for pain uncontrolled - aspiration and analysis of fluid ruled out infection crystal analysis ruled out gout this is inflammatory in nature - intra-articular joint injection with Depo-Medrol and 3 mL 1% lidocaine 09/26/2022 (2) Anemia: normocytic, iron minorly low but binding capacity is normal, trended downward during her hospital stay hemodynamically stable at this time - She reports no change in bowel habits or epigastric pain-no melena - Is taking ASA at home, now on hold - bid ppi and stop nsaids transfused 2 units packed red blood cells on 09/25/2022 patient seen by [facility] gastroenterology recommending twice daily PPI iron supplementation and to follow-up as an outpatient for possible endoscopy no plans on inpatient scoping unless hemodynamically unstable - (3) Osteoarthritis: Oa of hip and spine, inflammatory markers are also up but fluid analysis does not show labs cw infection/gout I did personally speak to Dr. He regarding her spine images however consult is not been placed in the chart (4) Irritable bowel syndrome (IBS): Continue with Miralax food intolerance with gluten and lactose- avoid (5) Post traumatic stress disorder: PTSD with anxiety - Continue gabapentin - Continue Paroxetine -Continue Duloxetine - PRN Valium (6) Hypertension: Chronic controlled - Continue ARB Total Time Total Time Spent Total Time Spent (In Minutes): it required greater than 30 minutes to prepare this patient for discharge Discharge Plan Discharge Items Patient Disposition: Home - Self-Care Reason For Visit: RIGHT HIP/KNEE PAIN Discharge Diagnosis: osteoarthritis with ambulatory dysfunction due to hip pain Activity: Resume your previous activity Weightbearing: Right weightbearing Weightbearing Comment: with walker Non-emergency contact: Primary Care Provider and Surgeon Call non-emergency contact if: your symptoms worsen Follow-up/Referrals: Deja Oseguera CRNP [Primary Care Provider] - Valencia Crews DO [Resident] - 10/04/22 10:45 am (hospital follow up appointment) Diet: Regular Addtl Attending Provider Instructions: please follow up with primary care in one week or so discuss follow up arrangements wtih a spine surgeon Addtl Sales Administrator Provider Instructions: Orthopedic instructions: - She may weight bear as tolerated - Ice to right hip as needed for comfort - Elevate right lower extremity as needed for pain/swelling - Use walker or cane to assist with ambulation to prevent falling. - Allowed for activities as tolerated with regards to right hip pain. - May repeat injection in 3-4 months. - Follow up with Dr. Dalton as needed. Pending Studies at Discharge: No Stand-Alone Forms: [facility] Medications and DC Order Prescriptions: Continued Qbrexza 2.4 % towelette 1 applic topical DAILY Qty: 30 3RF Rx Instructions: Apply to each underarm not more frequently than once every 24 hours cholecalciferol (vitamin D3) 50 mcg (2,000 unit) capsule 50 mcg PO DAILY triamcinolone acetonide 0.1 % ointment 1 applic topical BID Qty: 80 2RF valsartan 80 mg Tablet 80 mg PO QAM polyethylene glycol 3350 [Miralax] 17 gram/dose Powder 1 dose PO QAM diazepam 5 mg Tablet 5 mg PO TID PRN (Reason: Anxiety) cyclosporine [Restasis] 0.05 % Dropperette 1 drp OPHTHALMIC (EYE) Q12H duloxetine 30 mg Capsule,Delayed Release(Dr/Ec) 30 mg PO BID tizanidine [Zanaflex] 4 mg Capsule 2 mg PO HS gabapentin 100 mg capsule 200 mg PO BID red yeast rice 600 mg capsule 1,200 mg PO QAM peppermint oil Oil 1 applic TOPICAL DIRECTED PRN (Reason: Pain) paroxetine HCl [Paxil] 40 mg Tablet 40 mg PO DAILY psyllium husk 3 gram/5.4 gram Powder 1 tbsp PO HS apple cider vinegar 500 mg tablet 500 mg PO DAILY calcium carbonate [Calcium 600] 600 mg calcium (1,500 mg) Tablet 600 mg PO DAILY diclofenac sodium [Voltaren Arthritis Pain] 1 % gel 2 g topical QID PRN (Reason: pain) Qty: 100 0RF Rx Instructions: apply to right hip and leg Discontinued aspirin 325 mg Tablet,Delayed Release (Dr/Ec) 325 mg PO TID PRN (Reason: Pain) Discharge Orders: Discharge Order (Routine); Ordered 09/27/22 Ordered By: Ant Giron/Other Patient Handouts: Anemia, OA Hip Admission Data Admit Date/Time: 09/21/22 20:49 Attending Provider: Ant Montes Admit Provider: Rustam Webster Primary Care Provider: Deja Oseguera Other Providers: Rustam Webster ; Slava Graham ; Danica Gomez ; Meaghan Cuevas ; Luis Miguel Boone ; Olivia Mcgrath Other Interventions: Discharge Summary Assessment (RN) Last Done: 09/27/22 14:33 Coding Level of Care Code 93025 INP/OBS DISCH >30 MIN Diagnoses Acute hip pain M25.551 Laterality: right Anemia D64.9 Anemia type: unspecified type Osteoarthritis M19.90 Irritable bowel syndrome (IBS) K58.9 Post traumatic stress disorder F43.10 Hypertension I10 Hypertension type: unspecified
== END 2022-09-27 16:00 | disposition home or self-care (01) | DRG 554 ==
LOC: ED 12:23 → 3W 20:49 → SUATTDRO 20:49 → 3W 21:49

== ENCOUNTER 2022-12-08 15:39 | Inpatient (IN) ==
[2022-12-08] MEDS ORDERED: SODIUM CHLORIDE 0.9% 500 ML IV ONE (16:55)
--- NOTE | 2022-12-08 17:04 | Emergency Department Note ---
History of Present Illness General Chief complaint: Fall Stated complaint: Fall Time Seen by Provider: 12/08/22 16:45 Source: patient, EMS, RN notes reviewed and old records reviewed (I have reviewed the EMS note from transport today) Mode of arrival: EMS Limitations: no limitations History of Present Illness Maximum Pain Intensity: 7 This patient is a 82-year-old female who has a complex medical history, comes in after being found down on the ground. There is reportedly fell she had ongoing right hip pain for 2 months and supposed to have surgery but done by Dr. Hopkins she tells me she says that she did not fall but crawled under the table because people were coming in to look at her furniture. She says she is currently in the process of being evicted. She denies any fever, headache, no chest pain or shortness of breath. she has not been eating well for the last 2 days. no nausea or vomiting. she has chronic right hip pain which she denies that she injured. Denies nausea vomiting she does take Tylenol for her hip pain and she says at times she takes 3 500s with a maximum of 6 a day she says she does this infrequently and has not done it recently. She tells me she has been confused over the last couple days Home Medications Medication Instructions Recorded Confirmed Type cyclosporine 0.05 % eye drops in a 1 drp ophthalmic (eye) Q12H 01/09/18 12/08/22 History dropperette (Restasis) diazepam 5 mg tablet 5 mg PO TID PRN Anxiety 01/09/18 12/08/22 History duloxetine 30 mg capsule,delayed 30 mg PO BID 01/09/18 12/08/22 History release polyethylene glycol 3350 17 1 dose PO QAM 01/09/18 12/08/22 History gram/dose oral powder (Miralax) red yeast rice 600 mg capsule 1,200 mg PO QAM 05/08/19 12/08/22 History paroxetine HCl 40 mg tablet (Paxil) 40 mg PO QAM 08/13/20 12/08/22 History peppermint oil 1 applic topical DIRECTED PRN 08/13/20 12/08/22 History Pain psyllium husk 3 gram/5.4 gram oral 1 tbsp PO HS 08/13/20 12/08/22 History powder apple cider vinegar 500 mg tablet 500 mg PO DAILY NEEDED 10/01/20 12/08/22 History cholecalciferol (vitamin D3) 50 50 mcg PO DAILY 10/01/20 12/08/22 History mcg (2,000 unit) capsule triamcinolone acetonide 0.1 % 1 applic topical BID #80 grams 06/17/22 12/08/22 Rx topical ointment glycopyrronium tosylate 2.4 % 1 applic topical DAILY #30 ea 07/28/22 12/08/22 Rx towelette (Qbrexza) calcium carbonate 600 mg calcium 600 mg PO DAILY 07/30/22 12/08/22 History (1,500 mg) tablet (Calcium) diclofenac sodium 1 % topical gel 2 g topical QID PRN pain #100 grams 11/10/22 12/08/22 Rx (Voltaren Arthritis Pain) tizanidine 4 mg capsule (Zanaflex) 2 mg PO HS 11/10/22 12/08/22 History gabapentin 300 mg capsule See Rx Instructions PO .COMPLEX 11/15/22 12/08/22 Rx #90 caps losartan 100 mg tablet 100 mg PO DAILY 11/30/22 12/08/22 History Allergies Allergy/AdvReac Type Severity Reaction Status Date / Time sulfamethoxazole Allergy Unknown Unknown Verified 12/08/22 18:57 [From Bactrim] trimethoprim [From Bactrim] Allergy Unknown Unknown Verified 12/08/22 18:57 prednisone AdvReac Severe TROUBLE Verified 11/10/22 14:48 WITH BLADDER CONTROL gluten AdvReac Intermediate Gastrointestinal Verified 11/10/22 14:48 Upset lactose AdvReac Intermediate Gastrointestinal Verified 11/10/22 14:48 Upset Past Med/Surg History Medical History Anxiety Bursitis Cardiac murmur dx within last few years Cervical spinal stenosis Chronic back pain Chronic kidney disease STAGE 3 > doesn't follow anyone for this > pt denies Depression Hypertension Irritable bowel syndrome (IBS) Osteoarthritis Osteoporosis Post traumatic stress disorder Surgical History History of carpal tunnel release BILATERAL History of cataract surgery BILATERAL History of cholecystectomy LAP History of colonoscopy History of esophagogastroduodenoscopy (EGD) History of lumpectomy of left breast History of open reduction and internal fixation (ORIF) procedure LEFT ANKLE History of salpingo-oophorectomy S/P BRETT (total abdominal hysterectomy) Family History Father Alcoholic Prostate cancer Hypertension Mother CHF (congestive heart failure) Glaucoma Obesity Social History Smoking Status: Never smoker Tobacco Type: Cigarettes Second Hand Exposure: No; Do You Dip or Chew Tobacco: No; Hx Alcohol Use: No Hx Substance Use: No Preferred Language: Kinyarwanda Communication Ability: Effective Director Of Math Required: No Beliefs That Will Affect Care: None marital status: Current Living Situation: Alone Current Living Situation Comment: Pt. 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 [employer] Feels Safe at Home: Yes Gender Identity: Female Assistive Devices: Cane and Walker Review of Systems A total of 10 systems reviewed and were otherwise negative Physical Exam Vital Signs Vital Signs - 24 hr 12/08/22 15:49 12/08/22 16:03 12/08/22 16:03 Temperature 36.5 C 36.5 C Temperature Source Oral Oral Pulse Rate 99 H 97 H Pulse Rate [Apical] 97 H Respiratory Rate 22 22 Respiratory Effort / Characteristics Non-Labored Non-Labored Respiratory Depth Normal Normal Blood Pressure 196/103 H Blood Pressure [Right Arm] 196/103 H Blood Pressure Mean 134 Blood Pressure Mean [Right Arm] 134 Blood Pressure Position Lying Blood Pressure Position [Right Arm] Lying Pulse Oximetry 100 100 Oxygen Delivery Method Room Air Room Air Sepsis Recent Fever Within 48 Hours No Sepsis New/Unexplained Change in Mental Status Yes Sepsis Action Taken by Nursing No Action Required 12/08/22 17:06 12/08/22 18:16 12/08/22 18:30 Temperature Temperature Source Pulse Rate 103 H Pulse Rate [Apical] 107 H Respiratory Rate 20 20 Respiratory Effort / Characteristics Non-Labored Respiratory Depth Normal Blood Pressure Blood Pressure [Right Arm] 220/100 H Blood Pressure Mean Blood Pressure Mean [Right Arm] 140 Blood Pressure Position Blood Pressure Position [Right Arm] Lying Pulse Oximetry 96 98 99 Oxygen Delivery Method Room Air Room Air Room Air Sepsis Recent Fever Within 48 Hours Sepsis New/Unexplained Change in Mental Status Sepsis Action Taken by Nursing 12/08/22 18:59 12/08/22 19:00 12/08/22 19:25 Temperature Temperature Source Pulse Rate 105 H 110 H 104 H Pulse Rate [Apical] Respiratory Rate 22 20 Respiratory Effort / Characteristics Respiratory Depth Blood Pressure 175/106 H 175/106 H Blood Pressure [Right Arm] Blood Pressure Mean 129 Blood Pressure Mean [Right Arm] Blood Pressure Position Blood Pressure Position [Right Arm] Pulse Oximetry 100 97 Oxygen Delivery Method Room Air Room Air Sepsis Recent Fever Within 48 Hours Sepsis New/Unexplained Change in Mental Status Sepsis Action Taken by Nursing 12/08/22 19:59 12/08/22 19:30 12/08/22 20:00 Temperature Temperature Source Pulse Rate 88 96 H 90 Pulse Rate [Apical] Respiratory Rate 17 22 Respiratory Effort / Characteristics Respiratory Depth Blood Pressure 198/70 H 198/70 H Blood Pressure [Right Arm] Blood Pressure Mean 112 Blood Pressure Mean [Right Arm] Blood Pressure Position Blood Pressure Position [Right Arm] Pulse Oximetry 94 97 Oxygen Delivery Method Room Air Room Air Sepsis Recent Fever Within 48 Hours Sepsis New/Unexplained Change in Mental Status Sepsis Action Taken by Nursing General: Well developed well nourished older female who is sleeping but arousable in no acute distress, breathing comfortably on room air. Normal speech HEENT: Normal cephalic atraumatic. Pupils are equal round and reactive to light. Extraocular movements are intact. Oropharynx is pink with moist mucous membranes. No swelling of the mouth lips or tongue. Neck: Supple with a midline trachea. No meningeal signs or stiffness, no JVD or bruits. No Stridor. Chest: Clear to auscultation bilaterally. No wheezes or rhonchi. No increased work of breathing. Heart: Regular rate and rhythm without murmurs or gallops. Abdomen: Soft nontender, nondistended without rebound guarding or rigidity. Extremities: No cyanosis clubbing or edema. No calf tenderness or assymetry. She is holding her right hip in flexion and saying that it hurts if she moves it but tells me this is baseline. Spine/Back. Non tender to palpation. No CVA tenderness Skin: Good turgor without rashes. Neurologic exam: Cranial nerves two through 12 are intact. Motor and sensation are intact and symmetrical throughout. Course Administered Medications Discontinued Medications Hydralazine HCl (Hydralazine Hcl 20 Mg/Ml Vial) 5 mg IV NOW ONE Stop: 12/08/22 18:54 Last Admin: 12/08/22 19:26 Dose: Not Given Documented By: KAREN Sodium Chloride (Nss) 500 mls @ 999 mls/hr IV .Q31M ONE Stop: 12/08/22 17:25 Last Infusion: 12/08/22 19:43 Dose: 0 mls/hr Documented By: Admin: 12/08/22 18:37 Dose: 999 mls/hr Documented By: ABNER Losartan Potassium (Losartan Potassium 50 Mg Tab) 50 mg PO NOW STA Stop: 12/08/22 19:06 Last Admin: 12/08/22 19:59 Dose: 50 mg Documented By: KAREN Metoprolol Tartrate (Metoprolol Tartrate 1 Mg/Ml Vial) 5 mg IV NOW STA Stop: 12/08/22 18:54 Last Admin: 12/08/22 19:25 Dose: 5 mg Documented By: KAREN Medical Decision Making Differential Diagnosis Sepsis, electrolyte or metabolic abnormality, trauma, intracranial process, hip injury/fracture/dislocation, cardiac disease, toxicologic, metabolic, psychiatric Medical Records Attestation: I reviewed the patient's medical records. Home Medications Current Medication List: was personally reviewed by me Laboratory Data Attestation: I reviewed the patient's lab results. 12/08/22 Unknown 12/08/22 Unknown Lab Results 12/08/22 12/08/22 12/08/22 Range/Units 17:15 19:26 Unknown WBC (4.8-10.8) K/ul RBC (4.20-5.40) M/uL Hgb (12.0-16.0) g/dl Hct (37.0-47.0) % MCV (80.0-100.0) fL MCH (25.0-34.0) pg MCHC (32.0-36.0) g/dL RDW Std Deviation (36.4-46.3) fL RDW Coeff of Elis (11.5-14.5) % Plt Count (130-400) K/uL MPV (9.4-12.4) fL Immature Gran % (Auto) % Neut % (Auto) % Lymph % (Auto) % [place] % (Auto) % Eos % (Auto) % Baso % (Auto) % Neut # (Auto) (1.40-6.50) K/uL Lymph # (Auto) (1.20-3.40) K/uL [place] # (Auto) (0.11-0.59) K/uL Eos # (Auto) (0.00-0.50) K/uL Baso # (Auto) (0.00-0.20) K/uL Immature Gran # (Auto) (0.01-0.20) K/uL PT (9.0-12.0) Seconds INR (0.9-1.1) Sodium 134 L (136-145) mmol/L Potassium 3.8 (3.5-5.1) mmol/L Chloride 100 (98-107) mmol/L Carbon Dioxide 26 (21-32) mmol/L Anion Gap 8 (3-11) BUN 23 (6-23) mg/dl Creatinine 0.73 (0.6-1.2) mg/dl Est Cr Clr Drug Dosing 55.3 ml/min Est GFR ( Amer) 90.2 ml/min Est GFR (Non-Af Amer) 77.8 ml/min BUN/Creatinine Ratio 31.5 H (10-20) Glucose 104 H (70-99(Fasting)) mg/dl Calcium 10.1 (8.6-10.3) mg/dl Magnesium 1.8 (1.7-2.4) mg/dl Total Bilirubin 0.9 (0.2-1.0) mg/dl AST 42 H (13-39) U/L ALT 21 (7-52) U/L Alkaline Phosphatase 311 H (34-104) U/L Total Creatine Kinase 752 H (26-192) U/L Troponin I High Sens 133.8 H* D 103.7 H* (0-14) pg/ml Total Protein 6.7 (6.0-8.3) gm/dl Albumin 3.6 (3.4-5.0) gm/dl Globulin 3.1 (2.5-4.0) gm/dl Albumin/Globulin Ratio 1.2 (0.9-2) TSH 1.677 (0.300-4.500) uIu/ml Urine Color Urine Appearance (Clear) Urine pH (4.5-7.5) Ur Specific [place] (1.000-1.030) Urine Protein (Negative) Urine Glucose (UA) (Negative) Urine Ketones (Negative) Urine Blood (Negative) Urine Nitrite (Negative) Urine Bilirubin (Negative) Urine Urobilinogen (Negative) Ur Leukocyte Esterase (Negative) Urine WBC (Auto) (0-5) /hpf Urine RBC (Auto) (0-4) /hpf U Hyaline Cast (Auto) (0-5) /lpf U Epithel Cells (Auto) (0-5) /lpf Urine Bacteria (Auto) (Negative) Salicylates (3.0-30) mg/dl Acetaminophen (10-30) ug/ml Ethyl Alcohol mg/dL (<10.0) mg/dl SARS-CoV-2, RNA, NAAT POSITIVE A* (NEGATIVE) 12/08/22 12/08/22 12/08/22 Range/Units Unknown Unknown Unknown WBC 11.32 H (4.8-10.8) K/ul RBC 3.73 L (4.20-5.40) M/uL Hgb 10.2 L (12.0-16.0) g/dl Hct 31.5 L (37.0-47.0) % MCV 84.5 (80.0-100.0) fL MCH 27.3 (25.0-34.0) pg MCHC 32.4 (32.0-36.0) g/dL RDW Std Deviation 41.7 (36.4-46.3) fL RDW Coeff of Elis 13.6 (11.5-14.5) % Plt Count 480 H (130-400) K/uL MPV 9.6 (9.4-12.4) fL Immature Gran % (Auto) 0.4 % Neut % (Auto) 77.8 % Lymph % (Auto) 11.2 % [place] % (Auto) 10.1 % Eos % (Auto) 0.3 % Baso % (Auto) 0.2 % Neut # (Auto) 8.82 H (1.40-6.50) K/uL Lymph # (Auto) 1.27 (1.20-3.40) K/uL [place] # (Auto) 1.14 H (0.11-0.59) K/uL Eos # (Auto) 0.03 (0.00-0.50) K/uL Baso # (Auto) 0.02 (0.00-0.20) K/uL Immature Gran # (Auto) 0.04 (0.01-0.20) K/uL PT 12.4 H (9.0-12.0) Seconds INR 1.1 (0.9-1.1) Sodium (136-145) mmol/L Potassium (3.5-5.1) mmol/L Chloride (98-107) mmol/L Carbon Dioxide (21-32) mmol/L Anion Gap (3-11) BUN (6-23) mg/dl Creatinine (0.6-1.2) mg/dl Est Cr Clr Drug Dosing ml/min Est GFR ( Amer) ml/min Est GFR (Non-Af Amer) ml/min BUN/Creatinine Ratio (10-20) Glucose (70-99(Fasting)) mg/dl Calcium (8.6-10.3) mg/dl Magnesium (1.7-2.4) mg/dl Total Bilirubin (0.2-1.0) mg/dl AST (13-39) U/L ALT (7-52) U/L Alkaline Phosphatase (34-104) U/L Total Creatine Kinase (26-192) U/L Troponin I High Sens (0-14) pg/ml Total Protein (6.0-8.3) gm/dl Albumin (3.4-5.0) gm/dl Globulin (2.5-4.0) gm/dl Albumin/Globulin Ratio (0.9-2) TSH (0.300-4.500) uIu/ml Urine Color Urine Appearance (Clear) Urine pH (4.5-7.5) Ur Specific [place] (1.000-1.030) Urine Protein (Negative) Urine Glucose (UA) (Negative) Urine Ketones (Negative) Urine Blood (Negative) Urine Nitrite (Negative) Urine Bilirubin (Negative) Urine Urobilinogen (Negative) Ur Leukocyte Esterase (Negative) Urine WBC (Auto) (0-5) /hpf Urine RBC (Auto) (0-4) /hpf U Hyaline Cast (Auto) (0-5) /lpf U Epithel Cells (Auto) (0-5) /lpf Urine Bacteria (Auto) (Negative) Salicylates < 3.0 L (3.0-30) mg/dl Acetaminophen < 3 L (10-30) ug/ml Ethyl Alcohol mg/dL (<10.0) mg/dl SARS-CoV-2, RNA, NAAT (NEGATIVE) 12/08/22 12/08/22 Range/Units Unknown Unknown WBC (4.8-10.8) K/ul RBC (4.20-5.40) M/uL Hgb (12.0-16.0) g/dl Hct (37.0-47.0) % MCV (80.0-100.0) fL MCH (25.0-34.0) pg MCHC (32.0-36.0) g/dL RDW Std Deviation (36.4-46.3) fL RDW Coeff of Elis (11.5-14.5) % Plt Count (130-400) K/uL MPV (9.4-12.4) fL Immature Gran % (Auto) % Neut % (Auto) % Lymph % (Auto) % [place] % (Auto) % Eos % (Auto) % Baso % (Auto) % Neut # (Auto) (1.40-6.50) K/uL Lymph # (Auto) (1.20-3.40) K/uL [place] # (Auto) (0.11-0.59) K/uL Eos # (Auto) (0.00-0.50) K/uL Baso # (Auto) (0.00-0.20) K/uL Immature Gran # (Auto) (0.01-0.20) K/uL PT (9.0-12.0) Seconds INR (0.9-1.1) Sodium (136-145) mmol/L Potassium (3.5-5.1) mmol/L Chloride (98-107) mmol/L Carbon Dioxide (21-32) mmol/L Anion Gap (3-11) BUN (6-23) mg/dl Creatinine (0.6-1.2) mg/dl Est Cr Clr Drug Dosing ml/min Est GFR ( Amer) ml/min Est GFR (Non-Af Amer) ml/min BUN/Creatinine Ratio (10-20) Glucose (70-99(Fasting)) mg/dl Calcium (8.6-10.3) mg/dl Magnesium (1.7-2.4) mg/dl Total Bilirubin (0.2-1.0) mg/dl AST (13-39) U/L ALT (7-52) U/L Alkaline Phosphatase (34-104) U/L Total Creatine Kinase (26-192) U/L Troponin I High Sens (0-14) pg/ml Total Protein (6.0-8.3) gm/dl Albumin (3.4-5.0) gm/dl Globulin (2.5-4.0) gm/dl Albumin/Globulin Ratio (0.9-2) TSH (0.300-4.500) uIu/ml Urine Color Yellow Urine Appearance Clear (Clear) Urine pH 6.0 (4.5-7.5) Ur Specific [place] 1.018 (1.000-1.030) Urine Protein Trace H (Negative) Urine Glucose (UA) Negative (Negative) Urine Ketones 2+ H (Negative) Urine Blood Trace H (Negative) Urine Nitrite Negative (Negative) Urine Bilirubin Negative (Negative) Urine Urobilinogen Negative (Negative) Ur Leukocyte Esterase Negative (Negative) Urine WBC (Auto) 1-5 (0-5) /hpf Urine RBC (Auto) 5-10 H (0-4) /hpf U Hyaline Cast (Auto) 1-5 (0-5) /lpf U Epithel Cells (Auto) >30 H (0-5) /lpf Urine Bacteria (Auto) Negative (Negative) Salicylates (3.0-30) mg/dl Acetaminophen (10-30) ug/ml Ethyl Alcohol mg/dL < 10.0 (<10.0) mg/dl SARS-CoV-2, RNA, NAAT (NEGATIVE) Imaging Data Attestation: I personally reviewed and interpreted this imaging study as follows: My Impression: Chest x-rayno acute infiltrate, failure, pneumothorax seen Head CTno hemorrhage or mass effect seen X-ray of the right hip and pelvisthere is severe arthritic changes in the right hip but no fracture or dislocation seen Radiologist's Impression: Chest X-Ray 12/08/22 16:54 XR chest 1V portable CLINICAL HISTORY: weakness TECHNIQUE: Single frontal radiograph of the chest was obtained. Comparison: Comparison is made to chest radiograph 10/04/2022 FINDINGS: No lines and tubes are seen. Calcified aortic knob is seen. The lungs are clear. No evidence of pleural effusion or pneumothorax. IMPRESSION: No acute chest disease. ACT 112: Negative or not required by law. Electronically signed by: Willi Donnelly M.D. 12/08/2022 5:[address] 12/08/22 16:55 CT head/brain wo con CLINICAL HISTORY: weakness Technique: Contiguous axial CT images of the head were acquired from the base of the skull to the vertex without intravenous contrast administration. Images were viewed in brain, subdural and bone windows. Automated dose lowering techniques and/or adjustment according to patient size were utilized for this exam. Comparison: Comparison is made to CT head 10/04/2022 Findings: Areas of decreased attenuation are present in the periventricular and manzo bcortical white matter bilaterally consistent with small vessel ischemic disease. Generalized cerebral atrophy with commensurate enlargement of the ventricles, sulci, and cisterns is also present. There is no acute intracranial hemorrhage or evidence of acute territorial infarction. No shift of the midline structures, mass effect, or extra-axial abnormalities are shown. Atherosclerotic calcifications are present in the intracranial segments of the internal carotid arteries. Imaged portions of the paranasal sinuses and mastoid air cells are clear. The orbits appear normal. There are no acute fractures of the calvaria or scalp swelling. Impression: No acute intracranial hemorrhage, no evidence of acute territorial infarction or other acute intracranial disease process. ACT 112: Negative or not required by law. Electronically signed by: Willi Donnelly M.D. 12/08/2022 5:46 PM Hip/Pelvis X-Ray 12/08/22 16:55 XR hip RT 2V w pelvis CLINICAL HISTORY: right hip pain TECHNIQUE: 2 views of the right hip and single frontal view of the pelvis were obtained. Comparison: Comparison is made to hip radiographs 10/04/2022 FINDINGS: There is no evidence of an acute fracture. Severe osteoarthritis is seen in the right hip with flattening of the right femoral head which may relate to prior AVN. Milder degenerative changes are seen in the lumbar spine and left hip. No soft tissue abnormality is seen. IMPRESSION: Redemonstration of severe osteoarthritis of femoral head flattening the right hip. ACT 112: Negative or not required by law. Electronically signed by: Willi Donnelly M.D. 12/08/2022 5:39 PM ECG Data Attestation: I personally reviewed and interpreted this ECG as follows: Indication: + weakness Rate (beats per minute): 99 Rhythm: + normal sinus ECG Intervals/blocks: + Normal QRS, + Normal QT and + Normal [place] ECG [place]: + Normal ECG ST segments: + Normal ST segments ECG Findings: + Poor R wave progression; no PACs or no PVCs Comparison ECG Date: from (10/04/22) Change: no significant change MDM Narrative This patient comes in as described above. She was placed on a child monitor in room B7. She is here for treatment evaluation of being found on the ground. She denies falls but she is also confusion over the last couple days she tells me although she answers questions appropriately is alert and orient x3 she has significant right hip pain but says that is unchanged did order x-ray of the hip as well as altered mental status/toxicologic/infectious/mental health type work- up. Multiple blood testing was obtained, EKG chest x-ray head CT and hip x-rays were obtained she was reassessed frequently. EKG shows no acute ischemic changes or ectopy. No change compared to old. CAT scan of her head was unremarkable. Her troponin was elevated at greater than 100 although she has no EKGs or chest pain. Her COVID was also positive which could explain some of her weakness and feeling foggy. She has no significant electrolyte or metabolic abnormalities. She was hydrated with IV normal saline. I do think she needs to be admitted for further treatment and evaluation. I have consulted [facility] to discuss case with them as I do think she needs to be admitted/observed. Continuous cardiac monitoring: Orders placed in EMR for continuous cardiac monitoring: Pulm evaluation she was noted to be in sinus tachycardia with a rate of 105 Impression & Plan COVID, Falls, Acute hip pain, Elevated troponin, Weakness Discharge Plan Visit Data Chief Complaint: Fall Stated Complaint: Fall ED Provider: Carter Staton Discharge Problem: COVID, Falls, Acute hip pain, Elevated troponin, Weakness Forms Stand Alone Forms: My [facility] Prescriptions Prescriptions: No Action gabapentin 300 mg capsule See Rx Instructions PO .COMPLEX Qty: 90 0RF Rx Instructions: take 1 tablet twice a day for 1 week then increase to 1 tablet three times a day orally; ok to dispense tablets Qbrexza 2.4 % towelette 1 applic topical DAILY Qty: 30 3RF Rx Instructions: Apply to each underarm not more frequently than once every 24 hours cholecalciferol (vitamin D3) 50 mcg (2,000 unit) capsule 50 mcg PO DAILY triamcinolone acetonide 0.1 % ointment 1 applic topical BID Qty: 80 2RF losartan 100 mg tablet 100 mg PO DAILY Patient Comments: CONFIRMED ON [facility] DC SUMMARY 11/30 polyethylene glycol 3350 [Miralax] 17 gram/dose Powder 1 dose PO QAM diazepam 5 mg Tablet 5 mg PO TID PRN (Reason: Anxiety) cyclosporine [Restasis] 0.05 % Dropperette 1 drp OPHTHALMIC (EYE) Q12H duloxetine 30 mg Capsule,Delayed Release(Dr/Ec) 30 mg PO BID red yeast rice 600 mg capsule 1,200 mg PO QAM tizanidine [Zanaflex] 4 mg capsule 2 mg PO HS peppermint oil Oil 1 applic TOPICAL DIRECTED PRN (Reason: Pain) paroxetine HCl [Paxil] 40 mg Tablet 40 mg PO QAM psyllium husk 3 gram/5.4 gram Powder 1 tbsp PO HS apple cider vinegar 500 mg tablet 500 mg PO DAILY calcium carbonate [Calcium 600] 600 mg calcium (1,500 mg) Tablet 600 mg PO DAILY diclofenac sodium [Voltaren Arthritis Pain] 1 % gel 2 g topical QID PRN (Reason: pain) Qty: 100 4RF Rx Instructions: apply to right hip and leg Referrals Referrals: Trudy Junior DO [Primary Care Provider] -
[2022-12-08 17:30] LABS: Basophils # (auto) 0.02 K/uL (0.00-0.20); Basophils % (auto) 0.2 %; Eosinophils # (auto) 0.03 K/uL (0.00-0.50); Eosinophils % (auto) 0.3 %; Hematocrit (blood only) 31.5 % (37.0-47.0); Hemoglobin 10.2 g/dl (12.0-16.0); Immature Granulocytes # (auto) 0.04 K/uL (0.01-0.20); Immature Granulocytes % (auto) 0.4 %; Lymphocytes # (auto) 1.27 K/uL (1.20-3.40); Lymphocytes % (auto) 11.2 %; Mean Corpuscular Hemoglobin 27.3 pg (25.0-34.0); Mean Corpuscular Hgb Conc 32.4 g/dL (32.0-36.0); Mean Corpuscular Volume 84.5 fL (80.0-100.0); Mean Platelet Volume 9.6 fL (9.4-12.4); Monocytes # (auto) 1.14 K/uL (0.11-0.59); Monocytes % (auto) 10.1 %; Neutrophils # (auto) 8.82 K/uL (1.40-6.50); Neutrophils % (auto) 77.8 %; Platelet Count 480 K/uL (130-400); RDW Coefficient of Variation 13.6 % (11.5-14.5); RDW Standard Deviation 41.7 fL (36.4-46.3); Red Blood Count 3.73 M/uL (4.20-5.40); White Blood Count 11.32 K/ul (4.8-10.8)
--- NOTE | 2022-12-08 17:40 | XRay Report ---
XR hip RT 2V w pelvis CLINICAL HISTORY: right hip pain TECHNIQUE: 2 views of the right hip and single frontal view of the pelvis were obtained. Comparison: Comparison is made to hip radiographs 10/04/2022 FINDINGS: There is no evidence of an acute fracture. Severe osteoarthritis is seen in the right hip with flatte scott of the right femoral head which may relate to prior AVN. Milder degenerative changes are seen in the lumbar spine and left hip. No soft tissue abnormality is seen. IMPRESSION: Redemonstration of severe osteoarthritis of femoral head flattening the right hip. ACT 112: Negative or not required by law. Electronically signed by: Willi Donnelly M.D. 12/08/2022 5:39 PM
--- NOTE | 2022-12-08 17:40 | XRay Report ---
XR chest 1V portable CLINICAL HISTORY: weakness TECHNIQUE: Single frontal radiograph of the chest was obtained. Comparison: Comparison is made to chest radiograph 10/04/2022 FINDINGS: No lines and tubes are seen. Calcified aortic knob is seen. The lungs are clear. No evidence of pleur al effusion or pneumothorax. IMPRESSION: No acute chest disease. ACT 112: Negative or not required by law. Electronically signed by: Willi Donnelly M.D. 12/08/2022 5:38 PM
[2022-12-08 17:45] LABS: Albumin Level 3.6 gm/dl (3.4-5.0); Bilirubin,Total 0.9 mg/dl (0.2-1.0); Calcium 10.1 mg/dl (8.6-10.3); Magnesium 1.8 mg/dl (1.7-2.4); Potassium 3.8 mmol/L (3.5-5.1)
--- NOTE | 2022-12-08 17:48 | CT Scan Report ---
CT head/brain wo con CLINICAL HISTORY: weakness Technique: Contiguous axial CT images of the head were acquired from the base of the skull to the christopher stacie without intravenous contrast administration. Images were viewed in brain, subdural and bone [facility]. Automated dose lowering techniques and/or adjustment according to patient size were utilized for this exam. Comparison: Comparison is made to CT head 10/04/2022 Findings: Areas of decreased attenuation are present in the periventricular and subcortical white matter bilate rally consistent with small vessel ischemic disease. Generalized cerebral atrophy with commensurate e nlargement of the ventricles, sulci, and cisterns is also present. There is no acute intracranial hem orrhage or evidence of acute territorial infarction. No shift of the midline structures, mass effect, or extra-axial abnormalities are shown. Atherosclerotic calcifications are present in the intracran ial segments of the internal carotid arteries. Imaged portions of the paranasal sinuses and mastoid air cells are clear. The orbits appear normal. There are no acute fractures of the calvaria or scalp swelling. Impression: No acute intracranial hemorrhage, no evidence of acute territorial infarction or other acute intracra nial disease process. ACT 112: Negative or not required by law. Electronically signed by: Willi Donnelly M.D. 12/08/2022 5:46 PM
[2022-12-08 17:51] LABS: Albumin Globulin Ratio 1.2 (0.9-2); BUN Creatinine Ratio 31.5 (10-20); Creatinine Clr Calc Pharmacy 55.3 ml/min; Est GFR (African American) 90.2 ml/min; Est GFR (Non-African American) 77.8 ml/min; Globulin 3.1 gm/dl (2.5-4.0); Total Protein 6.7 gm/dl (6.0-8.3)
[2022-12-08 17:52] LABS: Acetaminophen < 3 ug/ml (10-30); Salicylate < 3.0 mg/dl (3.0-30)
[2022-12-08 17:55] LABS: Troponin I High Sensitivity 103.7 pg/ml (0-14)
[2022-12-08 17:56] LABS: INR 1.1 (0.9-1.1); Prothrombin Time 12.4 Seconds (9.0-12.0)
[2022-12-08 18:02] LABS: Thyroid Stimulating Hormone 1.677 uIu/ml (0.300-4.500)
--- NOTE | 2022-12-08 18:31 | History & Physical Report ---
Date of Service December 08, 2022 Assessment & Plan (1) Falls: Plan: -Patient with history of falls, found under her dining room table. Patient not remembering too much form earlier this afternoon, possibly from fall. -CT Head negative for acute process. -CK 752. -Given 1L NSS in the ED, will continue on LR at 125ml/hr for 3 bags. -PT/OT ordered. -Fall precautions in place. -Trend CBC for hemglobin. (2) COVID-19: Plan: -Patient w/ episode of confusion, prior night without sleep, however no other symptoms. -COVID+ in the ED. WBC 11.32, Hgb 10.2, Plt 480, Na 134, Troponin 103.7. -COVID+ noted in transitional care note from late October with date unknown. Unable to locate positive test from previous hospitalization or from [facility] notes. Unclear where that may have been listed. -CXR negative for any acute process. Patient remains with good saturation on room air. -Not symptomatic and not hypoxic, no reason for steroids or remdesivir at this time. -May be cause for insomnia leading to patient's confusion episode. -Given 1L NSS in the ED. -Continue on LR 125ml/hr for 3 bags. -Isolation precautions. (3) Hypertension: Plan: -BP had been 190's-220's in the ED prior to admission without any medication treatment provided by the ED. -Patient had not taken morning medications, most likely biggest contributor. -Ordered 5mg Lopressor (tachycardic) and 50mg losartan by admitting team on admission. -Admit to med/tele, continue to trend. -Continue home losartan 100mg daily. (4) Urinary incontinence: Plan: -Patient found incontinent at home, romero in place in ED. CT without evidence of acute abnormality. Will take out (5) Elevated troponin: Plan: -Troponin 103 on admission, no repeat placed by ED provider. -EKG without any acute ST elevation or depression, NSR. -Most likely elevated due to hypertension. -Continue to trend until peak. (6) Ambulatory dysfunction: Plan: As above. (7) Osteoarthritis: Plan: -R hip XR without change from previous. Continue home gabapentin, duloxetine. (8) Irritable bowel syndrome (IBS): Plan: -Continue home miralax. (9) Post traumatic stress disorder: Plan: -Continue home duloxetine, paroxetine, gabapentin. Plan F/E/N/GI: Regular, gluten free, lactose free. DVT Prophylaxis: SCD, Lovenox 40mg q24h Code status: DNR/DNI. Dispo: Med/tele History of Present Illness Chief Complaint: found on ground Primary Care Provider: DO Laurel Callejas is an 82 year old female w/ PmHx chronic R hip pain, ambulatory dysfunction, PTSD/anxiety, osteoporosis, DJD, HTN, hypothyroidism, IBS brought into the ED by EMS after she was found yelling under her dining room apartment. Patient is tough to get a history from due to her not sleeping much the night before. Patient is alert and oriented x3 for me in the room but nodding off with sentences. Patient stated she does not remember too much from what happened earlier in the day although she does remember going under her table and states that there were people coming to check out her furniture today. She states that she was unable to sleep last night very much and is thus very tired today, unsure if that is contributing to her lapse in memory for what happened. She mentioned there may be some kind of issue where she may be evicted from her apartment however I was not able to get much else information on this from her. She denies any shortness of breath, chest pain, cough, congestion, headache, numbness or tingling in her arms or legs, swelling, abdominal pain. In the ED she had high blood pressures since arrival, only 1L NSS given. I ordered lopressor 5mg IV and losartan 50mg while patient was in the ED since patient had not had any medications all day including no orders for blood pressure treatment while in the ED. COVID+, WBC 11.32, Hgb 10.2, Plt 480, Na 134, Troponin 103.7, CK 752. Head CT negative, CXR negative for acute processes, R hip XR without any change from previous. Allergies Allergy/AdvReac Type Severity Reaction Status Date / Time sulfamethoxazole Allergy Unknown Unknown Verified 12/08/22 18:57 [From Bactrim] trimethoprim [From Bactrim] Allergy Unknown Unknown Verified 12/08/22 18:57 prednisone AdvReac Severe TROUBLE Verified 11/10/22 14:48 WITH BLADDER CONTROL gluten AdvReac Intermediate Gastrointestinal Verified 11/10/22 14:48 Upset lactose AdvReac Intermediate Gastrointestinal Verified 11/10/22 14:48 Upset Home Medications Medication Instructions Recorded Confirmed Type cyclosporine 0.05 % eye drops in a 1 drp ophthalmic (eye) Q12H 01/09/18 12/08/22 History dropperette (Restasis) diazepam 5 mg tablet 5 mg PO TID PRN Anxiety 01/09/18 12/08/22 History duloxetine 30 mg capsule,delayed 30 mg PO BID 01/09/18 12/08/22 History release polyethylene glycol 3350 17 1 dose PO QAM 01/09/18 12/08/22 History gram/dose oral powder (Miralax) red yeast rice 600 mg capsule 1,200 mg PO QAM 05/08/19 12/08/22 History paroxetine HCl 40 mg tablet (Paxil) 40 mg PO QAM 08/13/20 12/08/22 History peppermint oil 1 applic topical DIRECTED PRN 08/13/20 12/08/22 History Pain psyllium husk 3 gram/5.4 gram oral 1 tbsp PO HS 08/13/20 12/08/22 History powder apple cider vinegar 500 mg tablet 500 mg PO DAILY NEEDED 10/01/20 12/08/22 History cholecalciferol (vitamin D3) 50 50 mcg PO DAILY 10/01/20 12/08/22 History mcg (2,000 unit) capsule triamcinolone acetonide 0.1 % 1 applic topical BID #80 grams 06/17/22 12/08/22 Rx topical ointment glycopyrronium tosylate 2.4 % 1 applic topical DAILY #30 ea 07/28/22 12/08/22 Rx towelette (Qbrexza) calcium carbonate 600 mg calcium 600 mg PO DAILY 07/30/22 12/08/22 History (1,500 mg) tablet (Calcium) diclofenac sodium 1 % topical gel 2 g topical QID PRN pain #100 grams 11/10/22 12/08/22 Rx (Voltaren Arthritis Pain) tizanidine 4 mg capsule (Zanaflex) 2 mg PO HS 11/10/22 12/08/22 History gabapentin 300 mg capsule See Rx Instructions PO .COMPLEX 11/15/22 12/08/22 Rx #90 caps losartan 100 mg tablet 100 mg PO DAILY 11/30/22 12/08/22 History Past Med/Surg History Medical History Anxiety Bursitis Cardiac murmur dx within last few years Cervical spinal stenosis Chronic back pain Chronic kidney disease STAGE 3 > doesn't follow anyone for this > pt denies Depression Hypertension Irritable bowel syndrome (IBS) Osteoarthritis Osteoporosis Post traumatic stress disorder Surgical History History of carpal tunnel release BILATERAL History of cataract surgery BILATERAL History of cholecystectomy LAP History of colonoscopy History of esophagogastroduodenoscopy (EGD) History of lumpectomy of left breast History of open reduction and internal fixation (ORIF) procedure LEFT ANKLE History of salpingo-oophorectomy S/P BRETT (total abdominal hysterectomy) Family History Father Alcoholic Prostate cancer Hypertension Mother CHF (congestive heart failure) Glaucoma Obesity Social History Smoking Status: Never smoker Tobacco Type: Cigarettes Second Hand Exposure: No; Do You Dip or Chew Tobacco: No; Hx Alcohol Use: No Hx Substance Use: No Preferred Language: Peruvian Communication Ability: Effective Clinical Staff Rn Required: No Beliefs That Will Affect Care: None marital status: Current Living Situation: Alone Current Living Situation Comment: Pt. lives at [facility], states she is to be evicted current occupational status: employed current occupation: [employer] Feels Safe at Home: Yes Gender Identity: Female Assistive Devices: Cane and Walker Review of Systems Review of Systems: As per HPI. Physical Exam Constitutional: Patient able to be woken up in bed however nodding off when speaking. Eyes: Eyelids bilaterally trace swelling, telangiectatic. Respiratory: normal respiratory effort, lungs clear to auscultation Cardiovascular: Rate/Rhythm: + tachycardic Heart Sounds: normal S1 and normal S2 No peripheral edema. Gastrointestinal (Abdomen): normal bowel sounds, soft, nontender, no hepatosplenomegaly Skin: no rashes, warm and dry Psychiatric: A+Ox3, euthymic affect Results & Data Results & Data Vital Signs (Past 12 Hours) Vital Signs Temp Pulse Pulse Resp BP BP Pulse Ox 12/08/22 18:16 107 H 20 220/100 H 98 12/08/22 17:06 96 12/08/22 16:03 36.5 C 97 H 22 196/103 H 100 12/08/22 16:03 36.5 C 97 H 22 196/103 H 100 12/08/22 15:49 99 H O2 Del Method 12/08/22 18:16 Room Air 12/08/22 17:06 Room Air 12/08/22 16:03 Room Air 12/08/22 16:03 Room Air 12/08/22 15:49 Resident Activity Tracking Resident Involvement: Resident Care Provided Care Provided: Adult Hospital Medicine (3) Hypertension Hypertension type: unspecified Qualified Code(s): I10 - Essential (primary) hypertension
[2022-12-08 18:37] LABS: Appearance Urine Clear (Clear); Bacteria Urine Automated Negative (Negative); Bilirubin Urine Negative (Negative); Blood Urine Trace (Negative); Color Urine Yellow; Epithelial Cell Urine Auto >30 /lpf (0-5); Glucose Urine UA Negative (Negative); Ketones Urine 2+ (Negative); Leukocyte Esterase Urine Negative (Negative); Nitrite Urine Negative (Negative); Protein Urine Trace (Negative); Specific Gravity Urine 1.018 (1.000-1.030); Urobilinogen Urine Negative (Negative)
[2022-12-08] MEDS ORDERED: hydrALAZINE HCL 20 MG/ML VIAL IV ONE ×2 (18:53→21:40)
[2022-12-08] MEDS ORDERED: METOPROLOL TARTRATE 1 MG/ML VIAL IV STA (18:53)
[2022-12-08] MEDS ORDERED: LOSARTAN POTASSIUM 50 MG TAB PO STA (19:05)
[2022-12-08] MEDS ORDERED: DICLOFENAC SOD 1% GEL 100 GM TUBE EXT PRN (22:49)
[2022-12-08] MEDS ORDERED: ONDANSETRON INJ 2 MG/ML 2 ML VIAL IV PRN (22:49)
[2022-12-08] MEDS: LACTATED RINGER'S 1,000 ML IV SCH (23:44)
[2022-12-08] MEDS: ENOXAPARIN INJ 40 MG/0.4 ML SYR SQ SCH (23:45)
[2022-12-08] MEDS: DULoxetine HCL 30 MG CAP PO SCH (23:45)
[2022-12-09 06:09] LABS: Albumin Level 3.4 gm/dl (3.4-5.0); BUN Creatinine Ratio 25.8 (10-20); Calcium 9.5 mg/dl (8.6-10.3); Creatinine Clr Calc Pharmacy 61.2 ml/min; Est GFR (African American) 96.7 ml/min; Est GFR (Non-African American) 83.4 ml/min; Phosphorus 2.2 mg/dl (2.5-4.9); Potassium 3.7 mmol/L (3.5-5.1)
[2022-12-09 06:12] LABS: Basophils # (auto) 0.05 K/uL (0.00-0.20); Basophils % (auto) 0.4 %; Eosinophils # (auto) 0.05 K/uL (0.00-0.50); Eosinophils % (auto) 0.4 %; Hematocrit (blood only) 32.6 % (37.0-47.0); Hemoglobin 10.9 g/dl (12.0-16.0); Immature Granulocytes # (auto) 0.06 K/uL (0.01-0.20); Immature Granulocytes % (auto) 0.5 %; Lymphocytes # (auto) 1.63 K/uL (1.20-3.40); Lymphocytes % (auto) 12.3 %; Mean Corpuscular Hemoglobin 27.6 pg (25.0-34.0); Mean Corpuscular Hgb Conc 33.4 g/dL (32.0-36.0); Mean Corpuscular Volume 82.5 fL (80.0-100.0); Mean Platelet Volume 9.7 fL (9.4-12.4); Monocytes # (auto) 1.15 K/uL (0.11-0.59); Monocytes % (auto) 8.7 %; Neutrophils # (auto) 10.35 K/uL (1.40-6.50); Neutrophils % (auto) 77.7 %; Platelet Count 528 K/uL (130-400); RDW Coefficient of Variation 13.6 % (11.5-14.5); RDW Standard Deviation 40.7 fL (36.4-46.3); Red Blood Count 3.95 M/uL (4.20-5.40); White Blood Count 13.29 K/ul (4.8-10.8)
--- NOTE | 2022-12-09 07:10 | Hospitalist Progress Note ---
Date of Service December 09, 2022 Assessment & Plan (1) Falls: Plan: Laurel is an 82 year old female with a PMHx of chronic R hip pain, ambulatory dysfunction, PTSD/anxiety, osteoporosis, DJD, HTN, hypothyroidism, IBS presented to the ED via EMS as patient was found yelling under her dining room table admitted for further workup and PT/OT evaluation. #Falls Patient with history of frequent falls. Found under her dining room table with minimal memory of the afternoon. CT Head without acute process. CK 752. Fluid resuscitated with 1L NSS. Now on maintenance LR at 125 mL/hr x3 bags PT/OT Fall precautions Trend CBC #Hypertensive Urgency BP markedly elevated 190s-120s in the ED. Given 5 mg Lopressor and 50 mg losartan by admitting team. Patient did not take AM meds which is likely contributing. Continue home meds. #COVID-19 Patient with recent COVID + status, no documented date of positive test. Positive on admission. Begin isolation precautions - end date 12/18. Generally asymptomatic from a respiratory stand point. No indication for steroids or antivirals at this time. Covid related insomnia may be contributing to confusion. #Elevated troponin - peaked EKG without any acute ST elevation or depression, NSR. Most likely elevated due to hypertension. #Urinary Incontinence Patient found incontinent at home, Huynh in place in ED. CT without evidence of acute abnormality. Removed Huynh #Osteoarthritis R hip XR without change from previous. Continue home gabapentin, duloxetine. #PTSD Continue home duloxetine, paroxetine, gabapentin. #IBS Continue home miralax. F/E/N/GI: Regular, gluten free, lactose free. IVF LR 125 mg/hr DVT Prophylaxis: SCD, Lovenox 40mg q24h Code status: DNR/DNI. Dispo: Med/tele (2) COVID-19: (3) Hypertension: (4) Urinary incontinence: (5) Elevated troponin: (6) Ambulatory dysfunction: (7) Osteoarthritis: (8) Irritable bowel syndrome (IBS): (9) Post traumatic stress disorder: Admission and Anticipated Discharge Date Admission Date: December 08, 2022 Supervising Physician Co-Signing Physician Notes Resident Physician Supervision Note: I independently interviewed and examined the patient and verified the gilliam history and physical, reviewed labs and image studies and agree with resident findings and care plan. Subjective Patient seen at bedside this AM. Breathing comfortably. Working with OT Review of Systems Review of Systems: As per HPI. Physical Exam Physical Exam: Gen: frail appearing female in NAD HEENT: AT NC Resp: no increased work of breathing CV: clinically well perfused Abd: non-distended Neuro: awake and alert Psych: appropriate mood and affect Skin: no obvious rashes or bruises Results & Data Results & Data Vital Signs (Past 12 Hours) Vital Signs Temp Pulse Pulse Pulse Resp BP BP 12/09/22 03:46 37.2 C 92 H 16 183/74 H 12/08/22 22:45 100 H 12/08/22 23:11 37.0 C 99 H 18 190/77 H 12/08/22 22:00 12/08/22 22:49 37 C 99 H 18 190/77 H 12/08/22 21:50 198/88 H 12/08/22 21:50 95 H 20 12/08/22 21:33 190/123 H 12/08/22 21:33 100 H 20 12/08/22 21:31 207/124 H 12/08/22 21:31 96 H 18 12/08/22 21:30 96 H 23 12/08/22 21:33 87 12/08/22 21:00 94 H 22 217/107 H 12/08/22 20:00 90 22 198/70 H 12/08/22 19:30 96 H 17 12/08/22 19:59 88 198/70 H 12/08/22 19:25 104 H 175/106 H Pulse Ox O2 Del Method 12/09/22 03:46 96 Room Air 12/08/22 22:45 12/08/22 23:11 98 Room Air 12/08/22 22:00 Room Air 12/08/22 22:49 98 Room Air 12/08/22 21:50 12/08/22 21:50 99 12/08/22 21:33 12/08/22 21:33 100 12/08/22 21:31 12/08/22 21:31 99 12/08/22 21:30 99 12/08/22 21:33 12/08/22 21:00 98 Room Air 12/08/22 20:00 97 Room Air 12/08/22 19:30 94 Room Air 12/08/22 19:59 12/08/22 19:25 Laboratory Results 12/09/22 05:00 12/09/22 05:00 Resident Activity Tracking Resident Involvement: Resident Care Provided Care Provided: Adult Hospital Medicine (1) Falls Encounter type: initial encounter Qualified Code(s): W19.XXXA - Unspecified fall, initial encounter (3) Hypertension Hypertension type: unspecified Qualified Code(s): I10 - Essential (primary) hypertension
[2022-12-09] MEDS ORDERED: POTASSIUM PHOS 3 MMOL/1 ML INFUSION IV STA (08:26)
[2022-12-09] MEDS ORDERED: POTASSIUM PHOSPHATE 15 MMOL in SODIUM CHLORIDE 0.9% 250 ML IV ONE (08:30)
[2022-12-09] MEDS: LACTATED RINGER'S 1,000 ML IV SCH ×2 (09:53→17:48)
[2022-12-09] MEDS: DULoxetine HCL 30 MG CAP PO SCH ×2 (09:56→21:46)
[2022-12-09] MEDS: CHOLECALCIFEROL 1,000 UNITS 25 MCG TAB PO SCH (09:56)
[2022-12-09] MEDS: GABAPENTIN 100 MG CAP PO SCH ×3 (09:56→21:48)
[2022-12-09] MEDS: LOSARTAN POTASSIUM 50 MG TAB PO SCH (09:56)
[2022-12-09] MEDS: CALCIUM CARBONATE 1250MG TAB PO SCH (09:56)
[2022-12-09] MEDS: POLYETHYLENE (MIRALAX) 17 GM PACK PO SCH (09:57)
[2022-12-09] MEDS: PARoxetine HCL 20 MG TAB PO SCH (09:57)
[2022-12-09] MEDS: ACETAMINOPHEN 325 MG TAB PO PRN (12:40)
--- NOTE | 2022-12-09 16:52 | Electrocardiogram Report ---
Test Reason : Blood Pressure : / mmHG Vent. Rate : 099 BPM Atrial Rate : 099 BPM P-R Int : 172 ms QRS Dur : 076 ms QT Int : 330 ms P-R-T Axes : 045 -18 049 degrees QTc Int : 423 ms Normal sinus rhythm Left atrial enlargement Poor R wave progression, consider anterior OH vs. lead placement vs. LVH Abnormal ECG When compared with ECG of 04-OCT-2022 16:02, ST no longer elevated in Anterior leads Confirmed by Bennett Clark ([id number]) on 12/09/2022 4:52:25 PM Referred By: REFERRED SELF Confirmed By:Bennett Clark
[2022-12-09] MEDS: diazePAM 5 MG TABLET PO PRN (21:46)
[2022-12-09] MEDS: ENOXAPARIN INJ 40 MG/0.4 ML SYR SQ SCH (21:47)
[2022-12-10 06:26] LABS: Hematocrit (blood only) 31.6 % (37.0-47.0); Hemoglobin 10.5 g/dl (12.0-16.0); Mean Corpuscular Hemoglobin 27.7 pg (25.0-34.0); Mean Corpuscular Hgb Conc 33.2 g/dL (32.0-36.0); Mean Corpuscular Volume 83.4 fL (80.0-100.0); Mean Platelet Volume 9.8 fL (9.4-12.4); Platelet Count 408 K/uL (130-400); RDW Coefficient of Variation 13.7 % (11.5-14.5); RDW Standard Deviation 40.9 fL (36.4-46.3); Red Blood Count 3.79 M/uL (4.20-5.40); White Blood Count 7.69 K/ul (4.8-10.8)
[2022-12-10 06:28] LABS: BUN Creatinine Ratio 19.6 (10-20); Calcium 9.2 mg/dl (8.6-10.3); Creatinine Clr Calc Pharmacy 72.1 ml/min; Est GFR (African American) 102.1 ml/min; Est GFR (Non-African American) 88.1 ml/min; Potassium 3.8 mmol/L (3.5-5.1)
--- NOTE | 2022-12-10 07:04 | Hospitalist Progress Note ---
Date of Service December 10, 2022 Assessment & Plan (1) Falls: Plan: Laurel is an 82 year old female with a PMHx of chronic R hip pain, ambulatory dysfunction, PTSD/anxiety, osteoporosis, DJD, HTN, hypothyroidism, IBS presented to the ED via EMS as patient was found yelling under her dining room table admitted for further workup and PT/OT evaluation. #Falls Patient with history of frequent falls. Found under her dining room table with minimal memory of the afternoon. CT Head without acute process. CK 752. Fluid resuscitated with 1L NSS followed by LR at 125 mL/hr x3 bags Fall possibly from polypharmacy of sedating meds/deconditioning due to chronic pain PT/OT Fall precautions Pain control to allow PT/OT participation #Metabolic encephalopathy On multiple sedating meds - tizanidine, paroxetine, gabapentin, diazepam. Suspect polypharmacy contributing to fall. Follow #Hypertensive Urgency BP markedly elevated 190s-120s in the ED. Given 5 mg Lopressor and 50 mg losartan by admitting team. Patient did not take AM meds which is likely contributing. Continue home meds. #COVID-19 Patient with recent COVID + status, no documented date of positive test. Positive on admission. Begin isolation precautions - end date 12/18. Generally asymptomatic from a respiratory stand point. No indication for steroids or antivirals at this time. Covid related insomnia may be contributing to confusion. #Demand ischemia EKG without any acute ST elevation or depression, NSR. Most likely elevated due to hypertension. #Urinary Incontinence Patient found incontinent at home, Romero in place in ED. CT without evidence of acute abnormality. Removed Romero #Osteoarthritis #chronic pain R hip XR without change from previous. Continue home gabapentin, duloxetine. Has had SI joint injections in past. -Will add lidocaine patch for R hip #PTSD Continue home duloxetine, paroxetine, gabapentin. #IBS Continue home miralax. F/E/N/GI: Regular, gluten free, lactose free. DVT Prophylaxis: SCD, Lovenox 40mg q24h Line - romero d/[place] (2) COVID-19: (3) Hypertension: (4) Urinary incontinence: (5) Elevated troponin: (6) Ambulatory dysfunction: (7) Osteoarthritis: (8) Irritable bowel syndrome (IBS): (9) Post traumatic stress disorder: Admission and Anticipated Discharge Date Admission Date: December 08, 2022 Supervising Physician Co-Signing Physician Notes Resident Physician Supervision Note: I independently interviewed and examined the patient and verified the gilliam history and physical, reviewed labs and image studies and agree with resident findings and care plan. Subjective Patient seen and examined at bedside. Patient was eating breakfast at time of encounter. States she is feeling ok this morning, however she quickly became agitated and began yelling that people have been accessing her medical record and criminal record. She notes hip pain and states that she has had SI joint injections in the past. Review of Systems Review of Systems: As per HPI/subjective Physical Exam Constitutional: WD/WN, vitals as above Eyes: Anicteric sclerae ENMT: External ears and nose normal, moist mucous membranes. Respiratory: No increased respiratory efforts. No cough or accessory muscle use. Cardiovascular: Limbs well perfused, normal heart rate. Skin: no rashes, warm and dry Psychiatric: Patient with angry affect. Results & Data Results & Data Vital Signs (Past 12 Hours) Vital Signs Temp Pulse Resp BP Pulse Ox O2 Del Method 12/09/22 19:16 36.6 C 83 18 197/69 H 98 Room Air Resident Activity Tracking Resident Involvement: Resident Care Provided Care Provided: Adult Hospital Medicine (1) Falls Encounter type: initial encounter Qualified Code(s): W19.XXXA - Unspecified fall, initial encounter (3) Hypertension Hypertension type: unspecified Qualified Code(s): I10 - Essential (primary) hypertension
[2022-12-10] MEDS: POLYETHYLENE (MIRALAX) 17 GM PACK PO SCH (09:36)
[2022-12-10] MEDS: LOSARTAN POTASSIUM 50 MG TAB PO SCH (09:37)
[2022-12-10] MEDS: PARoxetine HCL 20 MG TAB PO SCH (09:37)
[2022-12-10] MEDS: GABAPENTIN 100 MG CAP PO SCH ×3 (09:37→20:41)
[2022-12-10] MEDS: CALCIUM CARBONATE 1250MG TAB PO SCH (09:38)
[2022-12-10] MEDS: CHOLECALCIFEROL 1,000 UNITS 25 MCG TAB PO SCH (09:38)
[2022-12-10] MEDS: DULoxetine HCL 30 MG CAP PO SCH ×2 (09:38→20:41)
[2022-12-10] MEDS: ACETAMINOPHEN 325 MG TAB PO PRN (09:52)
[2022-12-10] MEDS ORDERED: LIDOCAINE 5% 1 PATCH TD STA (18:21)
[2022-12-10] MEDS: ENOXAPARIN INJ 40 MG/0.4 ML SYR SQ SCH (20:40)
[2022-12-11 06:35] LABS: Hematocrit (blood only) 31.3 % (37.0-47.0); Hemoglobin 10.4 g/dl (12.0-16.0); Mean Corpuscular Hgb Conc 33.2 g/dL (32.0-36.0); Mean Corpuscular Volume 84.1 fL (80.0-100.0); Mean Platelet Volume 9.6 fL (9.4-12.4); Platelet Count 392 K/uL (130-400); RDW Coefficient of Variation 13.8 % (11.5-14.5); RDW Standard Deviation 41.8 fL (36.4-46.3); Red Blood Count 3.72 M/uL (4.20-5.40); White Blood Count 6.52 K/ul (4.8-10.8)
[2022-12-11 06:57] LABS: BUN Creatinine Ratio 19.7 (10-20); Calcium 9.7 mg/dl (8.6-10.3); Creatinine Clr Calc Pharmacy 61.2 ml/min; Est GFR (African American) 96.7 ml/min; Est GFR (Non-African American) 83.4 ml/min; Potassium 4.1 mmol/L (3.5-5.1)
--- NOTE | 2022-12-11 07:04 | Hospitalist Progress Note ---
"Date of Service December 11, 2022 Assessment & Plan (1) Falls: Plan: Laurel is an 82 year old female with a past medical history of chronic R hip pain, ambulatory dysfunction, PTSD/anxiety, osteoporosis, DJD, HTN, hypothyroidism, IBS presented to the ED via EMS as patient was found yelling under her dining room table . Patient with history of frequent falls. Concern of Falls/Self -Reported hallucinations/Metabolic encephalopathy On further questioning 12/11 - She reports being scared and having hallucinations at home since she is being evicted from home. On multiple sedating meds - tizanidine, paroxetine, gabapentin, diazepam. CT Head without acute process. CK 752. Fluid resuscitated with 1L NSS followed by LR at 125 mL/hr x3 bags Mentation clear today Fall precautions PTSD Continue home duloxetine, paroxetine, gabapentin, prn diazepam. Unclear of the most current dose of gabapentin (listed 100mgs bid). BP elevated and seems to be having paranoid symptoms due to trigger of eviction - will increase gabapentin to 200mg TID today (12/11) Hypertensive Urgency BP staying elevated. -Currently receiving Losartan 100mg -Suspect that elevations also related to times of increase anxiety/agitation COVID-19 Patient with recent COVID + status, no documented date of positive test. Positive on admission. Begin isolation precautions - end date 12/18. Generally asymptomatic from a respiratory stand point. No indication for steroids or antivirals at this time. Covid related insomnia may be contributing to confusion. Demand ischemia EKG without any acute ST elevation or depression, NSR. Most likely elevated due to hypertension. Urinary Incontinence Patient found incontinent at home. Huynh placed in ED- now removed Follow. Osteoarthritis | Chronic pain R hip XR without change from previous. Continue home gabapentin, duloxetine. Reports having had ?SI/Hip joint injections in past. -Added lidocaine patch for R hip IBS Continue home miralax. F/E/N/GI: Regular, gluten free, lactose free. DVT Prophylaxis: SCD, Lovenox 40mg q24h Dispo: PT reevaluated on 12/10 and patient was distracted and did not actively participate. Rehab stay still recommended at this time. (2) COVID-19: (3) Hypertension: (4) Urinary incontinence: (5) Elevated troponin: (6) Ambulatory dysfunction: (7) Osteoarthritis: (8) Irritable bowel syndrome (IBS): (9) Post traumatic stress disorder: Admission and Anticipated Discharge Date Admission Date: December 08, 2022 Supervising Physician Co-Signing Physician Notes Resident Physician Supervision Note: I independently interviewed and examined the patient and verified the gilliam history and physical, reviewed labs and image studies and agree with resident findings and care plan. Subjective Patient seen and examined at bedside.No overnight events reported, patient slept. Awaiting rehab placement. Patient notes that she was underneath her table on the day of admission because she was going to be evicted from her home. She denies that there was fall on that occasion. Review of Systems Review of Systems: As per HPI/subjective Physical Exam Constitutional: WD/WN, vitals as above Eyes: no conjunctival abnormality ENMT: Ears: no external ear abnormality Nose: no external nose abnormality Moist mucous membranes. Respiratory: No increased respiratory efforts or accessory muscle use. Lungs clear, good aeration. Cardiovascular: Tachycardic heart rate. Limbs well perfused. Skin: no rashes, warm and dry Psychiatric: Sleeping, unable to assess. Results & Data Results & Data Vital Signs (Past 12 Hours) Vital Signs Temp Pulse Pulse Resp BP Pulse Ox O2 Del Method 12/10/22 22:49 100 H 12/11/22 02:48 36.4 C L 101 H 14 166/71 H 96 Room Air 12/10/22 22:16 36.7 C 99 H 18 125/70 98 Room Air 12/10/22 19:45 36.7 C 97 H 18 130/73 99 Room Air Resident Activity Tracking Resident Involvement: Resident Care Provided Care Provided: Adult Hospital Medicine (1) Falls Encounter type: initial encounter Qualified Code(s): W19.XXXA - Unspecified fall, initial encounter (3) Hypertension Hypertension type: unspecified Qualified Code(s): I10 - Essential (primary) hypertension"
[2022-12-11] MEDS: DULoxetine HCL 30 MG CAP PO SCH ×2 (08:14→20:04)
[2022-12-11] MEDS: GABAPENTIN 100 MG CAP PO SCH ×3 (08:14→19:51)
[2022-12-11] MEDS: POLYETHYLENE (MIRALAX) 17 GM PACK PO SCH (08:14)
[2022-12-11] MEDS: CALCIUM CARBONATE 1250MG TAB PO SCH (08:15)
[2022-12-11] MEDS: CHOLECALCIFEROL 1,000 UNITS 25 MCG TAB PO SCH (08:16)
[2022-12-11] MEDS: PARoxetine HCL 20 MG TAB PO SCH (08:16)
[2022-12-11] MEDS: LOSARTAN POTASSIUM 50 MG TAB PO SCH (08:16)
--- NOTE | 2022-12-11 17:54 | Communication Note ---
Date of Service: December 11, 2022 I was notified by patient's nurse this afternoon that she had a burst of PAT on telemetry. Discussed with Dr. Thomas, will start Metoprolol Tartrate 25mg BID. Will continue to monitor on telemetry, can consider switching to Metoprolol Succinate.
[2022-12-11] MEDS: METOPROLOL TARTRATE 25 MG TAB PO SCH (18:00)
[2022-12-11] MEDS: ACETAMINOPHEN 325 MG TAB PO PRN (19:48)
[2022-12-11] MEDS: diazePAM 5 MG TABLET PO PRN (19:55)
[2022-12-11] MEDS: ENOXAPARIN INJ 40 MG/0.4 ML SYR SQ SCH (20:04)
[2022-12-12 06:37] LABS: Hematocrit (blood only) 31.8 % (37.0-47.0); Hemoglobin 10.3 g/dl (12.0-16.0); Mean Corpuscular Hemoglobin 27.5 pg (25.0-34.0); Mean Corpuscular Hgb Conc 32.4 g/dL (32.0-36.0); Platelet Count 382 K/uL (130-400); RDW Standard Deviation 42.8 fL (36.4-46.3); Red Blood Count 3.74 M/uL (4.20-5.40); White Blood Count 6.67 K/ul (4.8-10.8)
[2022-12-12 06:58] LABS: BUN Creatinine Ratio 18.7 (10-20); Calcium 9.9 mg/dl (8.6-10.3); Creatinine Clr Calc Pharmacy 53.8 ml/min; Est GFR (African American) 87.3 ml/min; Est GFR (Non-African American) 75.3 ml/min; Potassium 4.3 mmol/L (3.5-5.1)
--- NOTE | 2022-12-12 07:13 | Hospitalist Progress Note ---
Date of Service December 12, 2022 Assessment & Plan (1) Falls: Plan: Pt is an 82 yo female with a PMH of chronic R hip pain, ambulatory dysfunction, PTSD/anxiety, osteoporosis, DJD, HTN, hypothyroidism, and IBS presented to the ED via EMS as patient was found yelling under her dining room table admitted for further workup and PT/OT evaluation. Recurrent falls - pt found under her dining room table with minimal memory of the afternoon - CT head neg, CK elevated at 752 - s/p fluid resuscitation with 1L NSS followed by LR at 125 mL/hr x3 bags - falls possibly secondary to polypharmacy of sedating meds/deconditioning due to chronic pain - PT reevaluated on 12/10 and patient was distracted and did not actively participate; rehab stay recommended at this time Metabolic encephalopathy- resolved - pt on multiple sedating meds including tizanidine, paroxetine, gabapentin, and diazepam - increased gabapentin to 200mg TID 12/11 Hypertensive urgency - BP running 180-200s/70-100s - currently on home losartan 100 mg daily - this hospitalization, started metoprolol 25 mg BID d/t atrial tachycardia Asymptomatic COVID-19 - recent COVID + status, no documented date of positive test; positive on admission - continue isolation precautions; end date 12/18 - no indication for steroids or antivirals at this time Demand ischemia - EKG without any acute ST elevation or depression - trop peaked - suspect in the setting of HTN Osteoarthritis - R hip XR without change from previous- showing severe osteoarthritis - hx of SI joint injections in the past - continue home gabapentin, duloxetine, and lidocaine patch PTSD - continue home duloxetine, paroxetine, and gabapentin IBS - continue home miralax Diet: regular, gluten free, lactose free DVT ppx: SCD, lovenox 40mg q24h Code: DNR/DNI Dispo: pending rehab placement (2) COVID-19: (3) Hypertension: (4) Urinary incontinence: (5) Elevated troponin: (6) Ambulatory dysfunction: (7) Osteoarthritis: (8) Irritable bowel syndrome (IBS): (9) Post traumatic stress disorder: Admission and Anticipated Discharge Date Admission Date: December 08, 2022 Supervising Physician Co-Signing Physician Notes I personally examined the patient and verified all gilliam points of history and exam, discussed case, and agree with decision making with Dr Heredia other than hip pain, feeling okay. Okay with the plan of going to [facility] for rehab. Continues to follow with Dr. Hopkins with anticipation of total hip replacement. Hip pain is her main complaint today. Vitals noted, in general she is awake and alert pleasant no distress. HEENT normocephalic atraumatic mucous membranes moist. Breathing unlabored no accessory muscle use good effort. Skin shows no rashes no pallor or icterus. WeaknessPT/OT, ongoing outpatient orthopedics follow-up, agree that SNF/rehab emphasis would be a good disposition for at this time. Otherwise as above. DVT proph - lovenox Subjective Pt seen this AM. She is displeased with her care so far as she states the main reason she is here is to find out what to do about her hip pain. She does not want to go to rehab as she thinks this would be useless for her. Review of Systems Review of Systems: As per HPI Physical Exam Physical Exam: Constitutional: well appearing, no acute distress HEENT: normocephalic, no conjunctival injection CV: clinically well perfused, no LE edema Respiratory: no increased work of breathing MSK: no gross deformities noted Skin: warm, dry, no rashes Neuro: alert, oriented, agitated at times with raises in her voice Results & Data Results & Data Vital Signs (Past 12 Hours) Vital Signs Temp Pulse Resp BP Pulse Ox O2 Del Method 12/12/22 05:31 37.2 C 78 16 183/95 H 94 Room Air Resident Activity Tracking Resident Involvement: Resident Care Provided Care Provided: Adult Hospital Medicine (1) Falls Encounter type: initial encounter Qualified Code(s): W19.XXXA - Unspecified fall, initial encounter (3) Hypertension Hypertension type: unspecified Qualified Code(s): I10 - Essential (primary) hypertension
[2022-12-12] MEDS: METOPROLOL TARTRATE 25 MG TAB PO SCH (09:16)
[2022-12-12] MEDS: PARoxetine HCL 20 MG TAB PO SCH (09:16)
[2022-12-12] MEDS: POLYETHYLENE (MIRALAX) 17 GM PACK PO SCH ×2 (09:16→20:41)
[2022-12-12] MEDS: DULoxetine HCL 30 MG CAP PO SCH ×2 (09:17→20:41)
[2022-12-12] MEDS: GABAPENTIN 100 MG CAP PO SCH ×3 (09:17→20:39)
[2022-12-12] MEDS: LOSARTAN POTASSIUM 50 MG TAB PO SCH (09:17)
[2022-12-12] MEDS: CHOLECALCIFEROL 1,000 UNITS 25 MCG TAB PO SCH (09:17)
[2022-12-12] MEDS: CALCIUM CARBONATE 1250MG TAB PO SCH (09:18)
[2022-12-12] MEDS: ACETAMINOPHEN 325 MG TAB PO PRN ×3 (09:18→20:38)
[2022-12-12] MEDS ORDERED: POLYETHYLENE (MIRALAX) 17 GM PACK PO ONE (14:13)
--- NOTE | 2022-12-12 18:36 | Billing Data ---
Date of Service December 12, 2022 Coding Level of Care Code 54580 SUB INP/OBS CARE
[2022-12-12] MEDS: ENOXAPARIN INJ 40 MG/0.4 ML SYR SQ SCH (20:40)
--- OUTSIDE RECORDS SUMMARY | 2022-12-12 21:41 | External Medical Summary | Continuity of Care Document ---
Author Name Unknown Organization [facility] [address] [facility] [address] [id number] Care Team Providers Care Rustic Fence Builder Name Role Phone Deja Oseguera Primary Care Physician [phone] [id number] Date(s): 10/04/22 - 10/04/22 [facility] [address] [facility] 207 [facility] Practice Site [address] [facility], [facility] 207 [place], [place] [address] [phone] Encounter Diagnosis Anemia(Discharge Diagnosis) - 10/04/22 Right hip pain(Discharge Diagnosis) - 10/04/22 Discharge Disposition: Home or Self Care Attending Physician: MD Key Dongsheng Allergies, Adverse Reactions, Alerts Substance Reaction Severity Status predniSONE severe depression Mild Active Assessment and Plan Extracted from: Title:Office Visit Note Author:DO Crews Clair e S Date:10/04/22 1. Anemia Repeat hbg. Referral to GI for colonoscopy/endoscopy. 2. Right hip pain Secondary to OA. Refer to ortho for discussion for replacement. Declines home PT, OT, home health As I was going over the plan with the patient, she became agitated when I stated that we were not going to be able to prescribe opioid pain medications at this visit. Concern for the number of medications that she is currently on and multiple recent falls that she has had. Tried to discuss alternative pain management options. Pt became agitated and throw tissue box. At this point Sagrario came into the room. Pt tried to leave. Stated that she had suicidal ideations. Police were called. Pt continued to use profane and threatening language to both myself and other staff members. Police and pulp screen operator arrived as pt was leaving our office. Immunizations Given and Recorded Vaccine Date Status Refusal Reason SARS-CoV-2 mRNA (sreekanth 5y-11y) 10/01/21 Sanjeev rded zoster vaccine, inactivated 09/01/21 Given influenza virus vaccine, inactivated 12/22/20 Give n influenza virus vaccine, inactivated 1 12/16/19 Re corded influenza virus vaccine, inactivated 12/21/18 Sanjeev rded SARS-CoV-2 (COVID-19) mRNA BNT-162b2 vax 2 05/15/20 Recorded SARS-CoV-2 (COVID-19) mRNA BNT-162b2 vax 3 04/24/20 Recorded pneumococcal 23-valent vaccine 4 10/13/16 Recorded pneumococcal 23-valent vaccine 5 08/16/02 Recorded pneumococcal 13-valent vaccine 6 07/08/15 Recorded tetanus/diphtheria/pertuss, acel (Tdap) 7 12/20/11 Recorded zoster vaccine live 8 03/20/07 Recorded 1Result Comment: [facility] 2Result Comment: 2021-05-13: Historical information-source unspecified 3Result Comment: 2021-05-13: Historical information-source unspecified 4Result Comment: 2019-11-27: Historical information-source unspecified 5Result Comment: 2019-11-27: Historical information-source unspecified 6Result Comment: 2019-11-27: Historical information-source unspecified 7Result Comment: 2019-11-27: Historical information-source unspecified 8Result Comment: 2019-11-27: Historical information-source unspecified Medications ascorbic acid Start: 01/16/18 13:53:00 EDT, 1,000 mg =, Daily Start Date: 01/16/18 Status: Ordered biotin Start: 01/16/18 13:54:00 EDT, 1 mg = Start Date: 01/16/18 Status: Ordered diazepam 5 mg oral tablet Start: 08/17/12 10:26:00 EDT, 1 tab, PO, tid, PRN: as needed for anxiety Start Date: 08/17/12 Status: Ordered DULoxetine 30 mg oral delayed release capsule Start: 10/19/15 13:30:00 EDT, 1 - 2 cap, PO, Daily Start Date: 10/19/15 Status: Ordered gabapentin 100 mg oral capsule Start: 10/19/15 13:30:00, 1 cap, PO, tid Start Date: 10/19/15 Status: Ordered glycopyrrolate 1 mg oral tablet Start: 10/16/19 14:57:00 EDT Start Date: 10/16/19 Status: Ordered MiraLax Start: 10/19/15 13:31:00 Start Date: 10/19/15 Status: Ordered Paxil 30 mg oral tablet Start: 08/17/12 10:26:00 EDT, 1 tab, PO, Daily Start Date: 08/17/12 Status: Ordered red yeast rice 600 mg oral capsule Start: 08/17/12 10:34:00, 2 cap, PO, Daily Start Date: 08/17/12 Status: Ordered Restasis Start: 10/19/15 13:31:00, 1 drop, both eyes, bid Start Date: 10/19/15 Status: Ordered Ultram 50 mg oral tablet Start: 10/03/22 11:46:00 EDT, See Instructions, Disp# 50 tab, Refills: 0, 1-2 tab PO q6h as needed for pain, Pharmacy: [id number] Start Date: 10/03/22 Status: Ordered unknown medication Start: 04/18/18 13:40:00 EST, Note to Pharmacy: [facility] Start Date: 04/18/18 Status: Ordered valsartan 80 mg oral tablet Start: 09/06/21 12:32:00 EDT, See Instructions, Disp# 90 tab, Refills: 3, TAKE 1 TABLET DAILY, Pharmacy: [facility] Start Date: 09/06/21 Status: Ordered Vitamin D3 5000 intl units oral capsule Start: 11/07/17 14:30:00 EDT Start Date: 11/07/17 Status: Ordered Zanaflex 4 mg oral tablet Start: 11/09/15 15:42:00, 1 tab, PO, q8h, Disp# 90 tab, Refills: 2, Begin with a half tablet and advance to a full tablet as tolerated, Pharmacy: [id number] Start Date: 11/09/15 Stop Date: 02/07/16 Status: Ordered Mental Status 10/04/22 Barriers to Learning one year None evide nt Mandatory Health Literacy Documentation Yes Health Literacy Communication Barriers N ever Primary Language Slovenian Problem List Condition Confirmation Course Effective Dates Status H ealth Status Informant Hand arthritis Confirmed Active Hallux rigidus Confirmed Active Anemia Confirmed Active Ankle fracture 1 Confirmed Active Arm pain, left Confirmed Active Right hip pain Confirmed Active Left knee pain Confirmed Active Upper back pain Confirmed Active Cervical spondylosis Confirmed Active Comedone Confirmed Active Left knee DJD Confirmed Active CTS (carpal tunnel syndrome) Confirmed Active Effusion of hip joint, right Confirmed Active Excessive sweating Confirmed Active Foot pain Confirmed Active Toe fracture, left Confirmed Active Fracture of phalanx of right ring finger Confirmed Active Right hand pain Confirmed Active Heart Confirmed Active Right hip pain Confirmed Active Hip pain, right Confirmed Active S/P carpal tunnel release Confirmed Active History of basal cell carcinoma of skin Confirmed Active Hypertension Confirmed Active Hypothyroidism Confirmed Active IBS (irritable bowel syndrome) Confirmed Active Shoulder impingement Confirmed Active Heat intolerance Confirmed Active LVH (left ventricular hypertrophy) Confirmed Active Low back pain Confirmed Active Chronic myofascial pain Confirmed Active Neck pain 2 Confirmed Active Tinea unguium Confirmed Active 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 Confirmed Active Right arm pain Confirmed Active Toe pain, left Confirmed Active Right hand paresthesia Confirmed Active Peripheral vascular disease Confirmed Active Poor posture Confirmed Active PTSD (post-traumatic stress disorder) Confirmed Active Pre-op exam Confirmed Active Radicular pain in right arm Confirmed Active Sacroiliitis Confirmed Active Sacroiliac joint pain Confirmed Active Seborrheic keratoses Confirmed Active Right shoulder pain Confirmed Active Left shoulder pain Confirmed Active Shoulder pain, left Confirmed Active Cervical spinal stenosis Confirmed Active Right ankle sprain Confirmed Active 1B/L 2shoulder Diagnosis Diagnosis Type Effective Dates Health Status Cl inical Service Informant Anemia Discharge Diagnosis 10/04/22 Right hip pain Discharge Diagnosis 10/04/22 Procedures Procedure Date Related Diagnosis Body Site Status CT of cervical spine 1 10/04/[address] of head without contrast 2 10/04/22 Completed Right Hip X-ray 3 10/04/22 Complet ed X-ray of chest wall 4 10/04/22 Com pleted MRI of lumbar spine without contrast 5 09/21/22 Completed MRI of right hip without contrast 6 09/21/22 Completed Hip X-ray 7 06/23/22 Completed Bone density scan 8, 9 01/07/22 Co mpleted Mammogram 10 01/07/22 Completed MRI 11 01/12/21 Completed MRI of lumbar spine 12 08/13/20 Co mpleted Mammogram 13 12/23/19 Completed Mammogram 14 12/19/18 Completed Bone density scan 15 10/23/18 Comp leted MRI 16 05/30/[address] of cervical spine 17 04/24/18 C ompleted Colonoscopy 18 12/29/16 Completed ankle bimalleolar fracture ORIF 01/08/09 Completed Biopsy of breast 1991 Compl eted Cholecystectomy 1990 Completed hysterectomy 1986 Completed tonsillectomy 1946 Completed Cataract Completed Mammogram - screening 20 Completed 1IMPRESSION: 1. There is no edvidence of cervical spine fracture or subluxation. 2. Osteopenia and spondylotic change as above. 2IMPRESSION: There is no hemorrhage, mass effect, or edvidence of acute territorial ischemia by CT criteria. 3IMPRESSION: 1. Severe right hip osteoarthritis, similar to radiographs of September 22, 2022. 2. No acute fractures. 4IMPRESSION: No acute cardiopulmonary findings. 5IMPRESSION: 1. Severe central canal stenosis at L5-S1 due to grade one anterolithesis with uncovering of the disc, severe facet arthrosis and ligamentous hypertrophy with a superimposed intracanalicular synovialcyst. Findings have mildly progressed since MRI of June 17, 2021. 2. Severe narrowing of the bilateral L5-S1 neural foramen and lateral recesses, as described above. 3. Otherwise, no change in apprearance of the lumbar spine. 4. No lumbar spine fractures. 6IMPRESSION: Extensive marrow edema within the right acetabulum, right femoral head and neck and intertrochanteric portion of the right femur. Severe right hip joint space narrowing with intereval development of mild flattening of the right femoral head. Moderate size right hip joint effusion with adjacent softtissue edema. These findings have significantly progressed sicne radiographs of July 30, 2022. Significant progression of severe right hip osteoarthritis is favored. However, septic arthritis of the right hip with associated osteomyelitis could have a similar imaging appearance and correlation with clinical edvidence for an infectious process is recommended. Findings discussed with Dr. Velez at time of dictation. 7Degenerative changes without evidence of acute abnormality. 810 year probability of fracture: Major Osteoporotic: 25.2% Hip: 7.6% Population: [place]() Based on DualFemur (right) Neck BMD 9Recommended follow up DEXA 01/11/24. 10IMPRESSION: ACR BI-RADS CATEGORY 2: BENIGN There is no mammographic evidence of malignancy. A 1 year screening mammogram is recommended. (01-08-2023) The patient will receive written notification of the results. 11IMPRESSION: 1.No significant change in severe multilevel neural foraminal stenosis since MRI April. This is detailed above. 2.Normal cervical cord signal and caliber. 3.Mild multilevel central canal stenosis which is similar to prior exam. 12impression 1. Multilevel degenerative changes most severe at L5-S1 also associated with grade 1 anterolisthesus of L5 on S1 13ACR BI RADS CAT 0. Need addtl imaging. 14There is no mammographic evidence of malignancy. A 1 year screening mammogram is recommended. 15T-score: -1.9 161. Severe multilevel neural foraminal stenosis, as detailed above, predominantly due to facet arthrosis and uncovertebral hypertrophy 2. Mid multilevel central canal stenosis due to disc bulges with disc osteophyte complexes. Normal cervical cord signal and caliber. 17no acute fracture or subluxation multilevel discogenic changes and facet arthrosis as above 18Adenomatous polyp - repeat 5 years. 19benign 20Impression: There is no mammographic evidence of malignancy. A 1 year screening mammogram is recommended. (01/06/2022) The patient will receive written notification of the results. Vital Signs Most recent to oldest [Reference Range]: 1 Temperature [36.5-37.9 DegC] 36.6 DegC (10/04/22 11:18 AM) Respiratory Rate 18 br/min (10/04/22 11:18 AM) Blood Pressure 122/72mmHg (10/04/22 11:18 AM) Cuff Pulse Pressure 50 mmHg (10/04/22 11:18 AM) BP Location # 1 Left Arm (10/04/22 11:18 AM) Social History Social History Type Response Tobacco 1 Smoking Status Never smoked cigaret chung Sex Female 1quit 1987 [facility] Outpt Note * MD Key Dongsheng: MODIFY MD Key Dongsheng: MODIFY Event Display: [facility] Outpt Note Authored Date: [id number] Chief Complaint Pt is here for a f/u from her [facility] hospital admission. She states she went to the hospital for her leg pain. Pt fell two nights ago. Has bruising to her nose. History of Present Illness 82 year old female presents for hospital f/u. Acute Hip Pain - admitted at [facility] from 09/21-09/27/2022 with acute right hip pain - joint injection 09/26 prior to d/c - Radiographs demonstrate severe osteoarthritis of the right hip, which has progressed from prior imaging 07/2022 . - aspiration of joint showed fluid with very few white cells. Not even consistent with inflammation. Cultures no growth to date and crystals were negative. - ortho consulted and felt severe arthritis. -Hip replacement would be next step - She states that pain is severe and makes walking difficult. She states that both prednisone and tramadol have caused urinary incontinence for her. -Follows with Dr. Curry for pain management -Uses a grocery cart instead of a walker because she feels this provides better balance - She has had multiple falls since her d/c. Denies any current pain related to falls, headaches. Does note severe hip pain. Anemia - normocytic, iron low - BID PPI - transfused 2 units PRBC 09/25/2022. Lowest Hbg= 7.1. Up to 11.3 on d/c - PO iron supplementation - Was scheduled to have EGD/Colonoscopy with [facility] today- was cancelled - Denies blood in stool Review of Systems As per above Physical Exam Vitals & Measurements T: 36.6 °C RR: 18 BP: 122/72 SpO2: 96% PHQ2 Data (Data Documented on:10/04/2022 11:13) Emotional health assessment NEGATIVE General: Well-developed, well-nourished patient, in no acute distress, pleasant and normal affect, intact memory. Eyes: No scleral injection or discharge. Lungs: Clear to auscultation bilaterally with good effort. Cardiac: Regular rate and rhythm. No murmurs. No extremity edema. Neurologic: Grossly intact cranial nerves MSK: Strength 5/5 in LE B/L Assessment/Plan 1. Anemia Repeat hbg. Referral to GI for colonoscopy/endoscopy. 2. Right hip pain Secondary to OA. Refer to ortho for discussion for replacement. Declines home PT, OT, home health As I was going over the plan with the patient, she became agitated when I stated that we were not going to be able to prescribe opioid pain medications at this visit. Concern for the number of medications that she is currently on and multiple recent falls that she has had. Tried to discuss alternative pain management options. Pt became agitated and throw tissue box. At this point Sagrario came into the room. Pt tried to leave. Stated that she had suicidal ideations. Police were called. Pt continued to use profane and threatening language to both myself and other staff members. Police and pulp screen operator arrived as pt was leaving our office. Attestation Preceptor Note: I saw the patient and confirmed the gilliam portions of the history. Discussed with the resident physician and agree with the above impression and plan. Bipin Key MD Problem List/Past Medical History Ongoing Anemia Ankle fracture Arm pain, left Cervical spinal stenosis Cervical spondylosis Chronic myofascial pain Comedone CTS (carpal tunnel syndrome) Effusion of hip joint, right Excessive sweating Foot pain Fracture of phalanx of right ring finger Hallux rigidus Hand arthritis Heart Heat intolerance Hip pain, right History of basal cell carcinoma of skin Hypertension Hypothyroidism IBS (irritable bowel syndrome) Left knee DJD Left knee DJD Left knee pain Left shoulder pain Low back pain LVH (left ventricular hypertrophy) Neck pain Osteoarthritis of CMC joint of thumb Peripheral vascular disease Poor posture Pre-op exam PTSD (post-traumatic stress disorder) Radicular pain in right arm Right ankle sprain Right arm pain Right hand pain Right hand paresthesia Right hip pain Right hip pain Right shoulder pain S/P carpal tunnel release Sacroiliac joint pain Sacroiliitis Seborrheic keratoses Shoulder impingement Shoulder pain, left Tinea unguium Toe fracture, left Toe pain, left Upper back pain Procedure/Surgical History •MRI of right hip without contrast (09/21/2022)•MRI of lumbar spine without contrast (09/21/2022)•Hip X-ray (06/23/2022)•Bone density scan (01/07/2022)•Mammogram (01/07/2022)•MRI (01/12/2021)•MRI of lumbar spine (08/13/2020)•Mammogram (12/23/2019)•Mammogram (12/19/2018)•Bone density scan (10/23/2018)•MRI (05/30/2018)•CT of cervical spine (04/24/2018)•Colonoscopy (12/29/2016)•ankle bimalleolar fracture ORIF (01/08/2009)•Biopsy of breast (1991)•Cholecystectomy (1990)•hysterectomy (1986)•tonsillectomy (1946)•Cataract•Mammogram - screening Medications ascorbic acid, 1000 mg, Daily biotin, 1 mg cholecalciferol(Vitamin D3 5000 intl units oral capsule) cycloSPORINE ophthalmic(Restasis), 1 drop, both eyes, bid diazePAM(diazepam 5 mg oral tablet), 5 mg= 1 tab, PO, tid, PRN DULoxetine(DULoxetine 30 mg oral delayed release capsule), 1 - 2 cap, PO, Daily gabapentin(gabapentin 100 mg oral capsule), 100 mg= 1 cap, PO, tid glycopyrrolate(glycopyrrolate 1 mg oral tablet) PARoxetine(Paxil 30 mg oral tablet), 30 mg= 1 tab, PO, Daily polyethylene glycol 3350(MiraLax) red yeast rice(red yeast rice 600 mg oral capsule), 1200 mg= 2 cap, PO, Daily tiZANidine(Zanaflex 4 mg oral tablet), 4 mg= 1 tab, PO, q8h, 2 refills traMADol(Ultram 50 mg oral tablet), See Instructions unknown medication valsartan(valsartan 80 mg oral tablet), See Instructions Allergies predniSONE (Mild) severe depression Social History Smoking Status Never smoked cigarettes Alcohol - Denies Alcohol Use Employment/School - Low Risk Exercise - Occasional exercise Home/Environment - Low Risk Nutrition/Health - Low Risk Sexual - No Risk Substance Abuse - Denies Substance Abuse Tobacco - Comments: quit 1987 Family History Alcoholism: Father. Breast cancer: Sister. CHF: Mother. Cancer: Unknown. Drug addiction: Sister. Glaucoma: Mother. Heart disease: Unknown. Hypertension: Mother. Prostate carcinoma: Father. Stroke: Unknown. Health Status Family Member(s) Immunizations Vaccine Date Status SARS-CoV-2 mRNA (tozinameran 5y-11y) 10/01/2021 Recorded zoster vaccine, inactivated 09/01/2021 Given influenza virus vaccine, inactivated 12/22/2020 Given SARS-CoV-2 (COVID-19) mRNA BNT-162b2 vax 05/15/2020 Recorded Comments : 2021-05-13: Historical information-source unspecified SARS-CoV-2 (COVID-19) mRNA BNT-162b2 vax 04/24/2020 Recorded Comments : 2021-05-13: Historical information-source unspecified influenza virus vaccine, inactivated 12/16/2019 Recorded Comments : [facility] influenza virus vaccine, inactivated 12/21/2018 Recorded pneumococcal 23-valent vaccine 10/13/2016 Recorded Comments : 2019-11-27: Historical information-source unspecified pneumococcal 13-valent vaccine 07/08/2015 Recorded Comments : 2019-11-27: Historical information-source unspecified tetanus/diphtheria/pertuss, acel (Tdap) 12/20/2011 Recorded Comments : 2019-11-27: Historical information-source unspecified zoster vaccine live 03/20/2007 Recorded Comments : 2019-11-27: Historical information-source unspecified pneumococcal 23-valent vaccine 08/16/2002 Recorded Comments : 2019-11-27: Historical information-source unspecified Recommendations Health Maintenance Pending (in the next year) OverDue Medicare Annual Wellness Visit due 09/01/22 and every 1 year Due Adult Influenza Vaccine due 09/17/22 and every 1 year Adult COVID-19 Vaccination due 10/04/22 Unknown Frequency Adult Tdap/Td Vaccine due 10/04/22 Unknown Frequency Falls Plan of Care due 10/04/22 Unknown Frequency Shingles Vaccine due 10/04/22 One-time only Due In Future Body Mass Index not due until 06/23/23 and every 1 year Satisfied (in the past 1 year) Satisfied Lipid Screening on 05/04/22. Satisfied by Contributor_system, [employer] Electronic Signature on File Electronically Reviewed/Signed by: Valencia Crews DO Author Signature Dt/Tm:10/04/2022 09:15 PM Resident Department of Family Medicine Electronically Reviewed/Signed by: Bipin Key MD Cosigner Signature Dt/Tm: 10/05/2022 08:30 AM Department of Family Medicine CSN Patient Care team information Care Team Personnel Name: MARY Oseguera Jill Nicole Position: Nurse Pract - Family Med Member Role: Primary Care Provider Address: Address: [address] [place] [address], [place] [address] Care Team Related Persons Name: IVON OMALLEY Address: home [address] [place] [address] ARASELI POWELL [phone] Name: DC BUSTAMANTE Address: home No Address Provided
--- OUTSIDE RECORDS SUMMARY | 2022-12-12 21:41 | External Medical Summary ---
Author Name Unknown Address Unknown Organization K09:[facility] [place] [address] Laboratory Report Ordering Provider Test Date Status ISAAC NUNES 11/17/2022 05:30:00 Final Observation Date Value Abnormality Reference (Units ) Status BUN 11/17/2022 05:30:00 15 6-20 (mg/dL) Final Creatinine 11/17/2022 05:30:00 0.9 0.5-1.0 (mg/dL) Final Glomerular filtration rate/1.73 sq M.predicted [Volume Rate/Area] in Serum, Plasma or Blood by Creatinine-based formula (CKD-EPI) 11/17/2022 05:30:00 63 >=60 (mL/min) Final Performing Location [facility] [place] [address]
--- OUTSIDE RECORDS SUMMARY | 2022-12-12 21:41 | External Medical Summary | Summary of Care ---
Author Name Unknown Organization [facility] Address [address] [facility] [place] [address] Phone [phone] Care Team Providers Care Diesel Scoop Operator Name Role Phone Deja Oseguera Primary Care Provider Encounter Details Date Type Department Care Team Description 10/26/2022 Telephone [facility], [facility] [address] [place] [id number] Cousins, Ryder Machado, [address] [place] [id number] Allergies Active Allergy Reactions Severity Noted Date Comments Gluten Meal Diarrhea,Nausea/vomiting 09/29/2022 Lactose Nausea/vomiting 09/29/2022 Prednisone Other (Please comment) 12/22/2016 Urinary incontinence documented as of this encounter (statuses as of 10/26/2022) Medications Medication Sig Dispensed Refills Start Date End Date Status STOOL SOFTENER 100 MG PO TABS Take by mouth. 0 Active RED YEAST RICE 600 MG PO CAPS 1 daily 0 Active PROGESTERONE 1000 MG/60GM EX CREA Apply topically to affected area. 0 Active cycloSPORINE 0.05 % Ophthalmic Emulsion Instill 1 Drop into both eyes in the morning and 1 Drop before bedtime. affected eye(s). 32 Vial 11 05/14/2015 Active PARoxetine (PAXIL) 30 MG TabletIndications:Ad justment disorder with depressed mood,Posttraumatic stress disorder Take 1 Tab by mouth daily. 90 Tab 3 05/14/2015 Active diazepam (VALIUM) 5 MG TabletIndications:Sp asm of muscle TAKE 1/2 TO ONE TABLET UP TO TWICE A DAY NEEDED FOR MUSCLE SPASM 180 Tab 1 05/14/2015 Active Polyethylene Glycol 3350 17 GM/SCOOP Oral Powder Take 17 g by mouth in the morning and 17 g before bedtime. Dissolve one heaping tablespoon in 8 ounces of water or juice.. 1 Bottle 2 08/12/2015 Active gabapentin (NEURONTIN) 100 MG Capsule 2 Capsules. Take 3 times a day 1 Cap 0 01/22/2016 Active tiZANidine (ZANAFLEX) 4 MG Tablet Take 0.5 Tablets by mouth. 1 Tab 0 01/22/2016 Active DULoxetine (CYMBALTA) 20 MG CPEPIndications:pt takes 1 or 2 dialy 30 mg. 0 04/30/2016 Active dicyclomine (BENTYL) 10 MG CapsuleIndications:I rritable bowel syndrome with both constipation and diarrhea Take 1 Cap by mouth 4 times a day as needed for Cramping. For abdominal pain 120 Cap 5 10/13/2016 Active Additional Information Patient not taking.Reported on 10/06/2022 Cholecalciferol (VITAMIN D-3) 1000 units Capsule Take by mouth. 0 Active [place] 3 1200 MG CAPS 0 Acti ve Biotin 1 MG Capsule 0 Activ e Ascorbic Acid (VITAMIN C) 1000 MG Tablet Take 1 Tablet by mouth in the morning. 0 Active fluticasone (FLONASE) 50 MCG/ACT nasal sprayIndications:Pos t-nasal drip,Cough Administer 2 Sprays into each nostril daily. 1 Inhaler 5 05/18/2017 Active Additional Information Patient not taking.Reported on 10/06/2022 MEDICAL INSTRUCTIONS Use as directed. Bi-Est estrogen cream --apply cream to arm every other day 0 Active Acetaminophen 500 MG Oral Tablet Take 1 Tablet by mouth every 6 hours as needed for Pain. 0 Active valsartan (DIOVAN) 80 MG Tablet Take 1 Tab by mouth daily. 90 Tab 1 12/01/2017 Active Cyanocobalamin (VITAMIN B 12) 500 MCG TABS Take by mouth. 0 Active glycopyrrolate (ROBINUL) 1 MG Tablet Take 1 Tablet by mouth in the morning and 1 Tablet at noon and 1 Tablet before bedtime. 0 Active Witch Sheryl-Glycerin External Pad Apply topically to affected area as needed . 0 Active dilTIAZem HCl (CARDIZEM OINTMENT) 2% LA GEL Administer into the rectum 3 times a day. 30 g 3 01/15/2020 Active Additional Information Patient not taking.Reported on 09/29/2022 Hydrocortisone (Perianal) 2.5 % External Cream (Anusol-HC) Administer into the rectum 2 times a day. 30 g 3 01/15/2020 Active Additional Information Patient not taking.Reported on 10/06/2022 Aspirin 325 MG Oral Tablet Delayed Release Take 1 Tablet by mouth in the morning and 1 Tablet at noon and 1 Tablet before bedtime. Patient takes OTC for pain. 0 Active traMADol HCl 50 MG Oral Tablet (Ultram) 0 03/15/2021 Acti ve Aspirin-Caffeine 500-32.5 MG Oral Tablet Take by mouth . 0 Active Donepezil HCl 10 MG Oral Tablet Take 1 Tablet by mouth in the morning. Take with largest meal of the day.. 0 Active Calcium 1200 8404-8623 MG-UNIT Oral Tablet Chewable Take 1 Tablet by mouth in the morning. 0 Active Eye Lubricant Ophthalmic Ointment Instill into eye. 0 Active Magnesium Citrate 125 MG Oral Capsule Take by mouth daily. 0 Active documented as of this encounter (statuses as of 10/26/2022) Active Problems Problem Noted Date Prediabetes 08/08/2017 Overview: Per Prediabetes protocol #1 HTN, goal below 140/90 01/18/2017 Benign hypertension with CKD (chronic ki dney disease) stage III 01/18/2017 LVH (left ventricular hypert rophy) due to hypertensive disease, without heart failure 01/18/2017 Hx of nonmelanoma skin cancer 12/01/2011 Overview: BCC Posterior neck 11/2011, L forehead 2009, nose in distant past Depression 08/16/2002 GENERALIZED ANXIETY DIS 08/16/2002 Irritable bowel syndrome 08/16/2002 Overview: Constipation dominant Hypothyroidism 07/29/2002 Dyslipidemia, goal LDL below 130 Overview: on red yeast rice in place of statin BONE & CARTILAGE DIS NOS - Osteopenia Overview: osteopenia Posttraumatic stress disorder Overview: sees Psychologist Vitamin D deficiency documented as of this encounter (statuses as of 10/26/2022) Resolved Problems Problem Noted Date Resolved Date Encounter for examination fo r normal comparison and control in clinical research program 08/28/2017 10/21/2019 Overview: DO NOT DELETE [facility] DETECT Study: Project # [id number], Extraction Machine Operator: Jace Arrington, PhD. SUMMARY: Goal: Establish test characteristics (sensitivity, specificity, PPV, NPV) of a circulating tumor DNA (ctDNA)-based test for cancer. Hypothesis: Circulating tumor DNA (ctDNA) and elevated protein biomarkers (together, the marker panel) can be detected in asymptomatic individuals with early cancer. Specific Aim 1: Determine the prevalence of a positive marker panel test in a prospective clinical cohort of 10,000 asymptomatic women ages 65 to 75 years. Specific Aim 2: Determine the sensitivity, specificity, positive predictive value (PPV) and negative predictive value (NPV) of a marker panel test to identify histologically proven cancers that develop within 5-years of the marker panel evaluation. CONTACTS: During normal business hours, contact study staff at ; after hours Extraction Machine Operator via the [facility] hospital notching machine operator . Please contact study team before resolving/deleting from patients problem list. Study phone number: [phone]. Diagnosis changed due to Research Module. Go to Snapshot for study details. Encounter for examination fo r normal comparison and control in clinical research program 08/28/2017 11/18/2021 Overview: DO NOT DELETE - [facility] DETECT Study: Project # [id number], Extraction Machine Operator: Nando Villeda, MS, MPH. SUMMARY: Goal: Establish test characteristics (sensitivity, specificity, PPV, NPV) of a circulating tumor DNA (ctDNA)-based test for cancer. - Hypothesis: Circulating tumor DNA (ctDNA) and elevated protein biomarkers (together, the marker panel) can be detected in asymptomatic individuals with early cancer. - Specific Aim 1: Determine the prevalence of a positive marker panel test in a prospective clinical cohort of 10,000 asymptomatic women ages 65 to 75 years. - Specific Aim 2: Determine the sensitivity, specificity, positive predictive value (PPV) and negative predictive value (NPV) of a marker panel test to identify histologically proven cancers that develop within 5-years of the marker panel evaluation. - CONTACTS: During normal business hours, contact study staff at ; after hours Extraction Machine Operator via the [facility] hospital notching machine operator . - Please contact study team before resolving/deleting from patients problem list. Study phone number: [phone]. Diagnosis changed due to Research Module. Go to Snapshot for study details. Sciatica without lumbago 03/31/2016 017 Inflammation of sacroiliac joint 03/31/2016 04/24/2017 Kidney disease, chronic, stage III (GFR 30-59 ml /min) 05/13/2013 06/30/2017 Overview: Per CKD protocol #1 ADVANCE DIRECTIVE INFORMATION 11/25/2009 Overview: Yes, Patient instructed to provide copy of advance directive for provider to review and to be scanned into Electronic Medical Record Myalgia 07/29/2002 01/18/2017 Cervicalgia 01/18/2017 Overview: due to muscle spasms Spasm of muscle 01/18/2017 Overview: sees chiropractor, used to get trigger point injections Posture abnormality 01/18/2017 Overview: Head forward positioning contributing to her neck and arm pain. documented as of this encounter (statuses as of 10/26/2022) Immunizations Name Administration Dates Next Due PPD 12/21/2017, 7,01/29/2016,02/20,02/10/2015 Pneumococcal Conjugate Vacc, 13 Valent (Prevnar) 07/08/2015 Pneumococcal Polysaccharide PPV23 (Pneumovax) 10/13/2016 Seasonal Influenza, Cell Cul ture, 18 Yrs & Older 02/01/2013 Seasonal Influenza, Quadriva lent, No Preserve, 6 Mons & Above, IM 12/21/2017 Seasonal Influenza, Quadriva lent, No Preserve, IM 01/22/2016 Seasonal Influenza, Split, I IV3, With Preserve, Inj 12/25/2016,11/21/2014,11/19/2013,12/19,01/31/2011,01/18/2010 TDAP (age 10 and older)(Boostrix) 12/20/2011 Varicella Zoster Vaccine (Adult) 03/20/2007 documented as of this encounter Social History Tobacco Use Types Packs/Day Years Used Date Smoking Tobacco: Former Cigarettes Q uit: 03/19/1988 Smokeless Tobacco: Never Comments:quit 1987 Alcohol Use Standard Drinks/Week Comments No 0 (1 standard drink = 0.6 oz pur e alcohol) Sex Assigned at Date Recorded Not on file Job Start Date Occupation Industry Not on file Not on file Not on file documented as of this encounter Miscellaneous Notes * Telephone Encounter - Dominique Walker LPN - 10/26/2022 10:04 AM EDT Patient called crying-states she was banned from [facility] ortho due to "being mean". [facility], supposed to have surgery. Would like to see ortho at [facility]. Transferredto scheduling. documented in this encounter Plan of Treatment Upcoming Encounters Date Type Specialty Care Team Description 12/01/2022 Office Visit Orthopedics Kristopher Ray, DO [address] [place] [id number] Health Maintenance Due Date Last Done Comments Albumin/Creatinine Ratio 01/18/2018 01/18/2017 CKD PHOS USE SMARTSET 08746 07/29/201807/18, 03/31/2016, 08/06/2014 Depression Screening, Annual for Pts 12 and Over 08/11/2018 08/11/2017 HbA1c 08/24/2018 08/24/2017 DXA Scan 03/15/2019 03/15/2012 Zoster Vaccines (3 of 3) 10/27/2021 09/01/2021, 03/2007 COVID-19 Vaccine (3 - Pfizer series) 11/26/2021 10/01/2021, 05/15/2020, 04/24/2020 DTaP,Tdap,and Td Vaccines (2 - Td or Tdap) 12/19/2021 12/20/2011 Influenza Vaccine (FLU shot) (#1) 2022 12/16/2019, 12/21/2018, 12/21/2017, Additional history exists GFR 02/03/2023 08/03/2022, 08/18, 07/29/2017, Additional history exists CKD HGB USE SMARTSET 99141 08/04/202308/03, 07/29/2017, 03/31/2016, Additional history exists COLONOSCOPY-EVERY 5 YRS AGES 18-100 10/07/2027 10/06/2022, 10/06/2022, 12/29/2016, Additional history exists Pneumococcal Vaccine: 65+ Years Completed 10/13/2016, 07/08/2015, 08/16/2002 GARDASIL-HPV IMMUNIZATION SERIES Aged Out No longer eligible based on patient's age to complete this topic Hepatitis B Aged Out No longer eligi ble based on patient's age to complete this topic MENINGOCOCCAL (MENACTRA/MENVEO) Aged Out No longer eligible based on patient's age to complete this topic documented as of this encounter Medical Devices Not on filedocumented as of this encounter Care Teams Diesel Scoop Operator Relationship Specialty Start Date End Date Deja Oseguera CRNP [address] [place] [id number] PCP - General Nurse Practitioner 12/24/20 documented as of this encounter
--- OUTSIDE RECORDS SUMMARY | 2022-12-12 21:41 | External Medical Summary ---
Author Name Unknown Address Unknown Organization [id number] [place] [address] Laboratory Report Ordering Provider Test Date Status MANJUGRAY 11/24/2022 05:55:00 Final Observation Date Value Abnormality Reference (Units ) Status BUN 11/24/2022 05:55:00 14 6-20 (mg/dL) Final Creatinine 11/24/2022 05:55:00 0.8 0.5-1.0 (mg/dL) Final Glomerular filtration rate/1.73 sq M.predicted [Volume Rate/Area] in Serum, Plasma or Blood by Creatinine-based formula (CKD-EPI) 11/24/2022 05:55:00 74 >=60 (mL/min) Final Performing Location [facility] [place] [address]
--- OUTSIDE RECORDS SUMMARY | 2022-12-12 21:41 | External Medical Summary ---
Author Name Unknown Address Unknown Organization [id number] [place] [address] Laboratory Report Ordering Provider Test Date Status ISAAC NUNES 11/17/2022 05:30:00 Final Observation Date Value Abnormality Reference (Units ) Status WBC, Total 11/17/2022 05:30:00 7.37 4.00-10.8 0 (K/uL) Final RBC 11/17/2022 05:30:00 4.03 3.85-5.15 (M/uL) Final Hemoglobin 11/17/2022 05:30:00 11.1 Below low normal 12 .0-15.3 (g/dL) Final HCT 11/17/2022 05:30:00 36.0 36.0-45.2 (%) Final MCV 11/17/2022 05:30:00 89.3 81.5-97.5 (fL) Final MCH 11/17/2022 05:30:00 27.5 27.0-34.0 (pg) Final MCHC 11/17/2022 05:30:00 30.8 32.0-36.0 (g/dL) Final RDW 11/17/2022 05:30:00 13.4 11.5-15.5 (%) Final Platelets 11/17/2022 05:30:00 386 140-400 (K /uL) Final MPV 11/17/2022 05:30:00 9.8 6.6-11.1 ( fL) Final Performing Location [facility] [place] [address]
--- OUTSIDE RECORDS SUMMARY | 2022-12-12 21:41 | External Medical Summary | Continuity of Care Document ---
Author Name Unknown Organization [facility] [address] [facility] [address] [id number] Care Team Providers Care Business Development Director Name Role Phone Deja Oseguera Primary Care Physician [phone] [id number] Date(s): 10/19/22 - 10/19/22 [facility] [address] [facility] 207 [facility] [address] [facility], [facility] [place] 207 [place], [place] [address] [phone] Encounter Diagnosis Hip pain, right(Discharge Diagnosis) - 10/19/22 Sacroiliac joint pain(Discharge Diagnosis) - 10/19/22 Discharge Disposition: Home or Self Care Attending Physician: MD Ericka, Luis Miguel Salvador Allergies, Adverse Reactions, Alerts Substance Reaction Severity Status predniSONE severe depression Mild Active Assessment and Plan Extracted from: Title:TeleHealth Visit Note Author:DO Jarquin Aud rey Date:10/19/22 1. Hip pain, right Discussed with patient we need to review her current medications to ensure we have up to date records. Patient declined referral to another orthopaedic office for second opinion, believes she has a hip replacement scheduled 3 months for now. Discussed at this time we will cover methods for pain control only, I will not be refilling her tizanidine or diazapam at this time. At this time we will increase her tylenol to 1000mg TID and gabapentin to 300mg HS, if she tolerates the gabapentin will increase to 300mg BID. F/u in 2 weeks with telehealth visit. Suspect there is also an element of polypharmacy given her irregular duloxetine and paroxetine doses. Will review further during her next visit. Will attempt to have patient connected with care management during next visit if possible given her upcoming eviction 2. Sacroiliac joint pain Patient states she had difficulty using Amwell, next visit may also be telephone visit only. Immunizations Given and Recorded Vaccine Date Status [...] live 8 03/20/07 Recorded 1Result Comment: [facility] 2Result Comment: 2021-05-13: Historical information-source unspecified [...] Daily Start Date: 10/19/15 Status: Ordered gabapentin 300 mg oral capsule Start: 10/19/22 11:17:00 EDT, 1 cap, PO, bid, Disp# 60 cap, [facility] Start Date: 10/19/22 Stop Date: 11/18/22 Status: Ordered glycopyrrolate 1 mg oral tablet [...] PO q6h as needed for pain, Pharmacy: [facility]/pharmacy #[id number] Start Date: 10/03/22 Status: Ordered unknown medication Start: 04/18/18 13:40:00 EST, Note to Pharmacy: [facility] Start Date: 04/18/18 Status: Ordered valsartan 80 mg oral tablet Start: 09/06/21 12:32:00 EDT, See Instructions, Disp# 90 tab, Refills: 3, TAKE 1 TABLET DAILY, Pharmacy: [facility] Start Date: 09/06/21 Status: Ordered Vitamin D3 5000 intl units oral capsule Start: 11/07/17 14:30:00 EDT Start Date: 11/07/17 Status: Ordered Zanaflex 4 mg oral tablet Start: 11/09/15 15:42:00, 1 tab, PO, q8h, Disp# 90 tab, Refills: 2, Begin with a half tablet and advance to a full tablet as tolerated, Pharmacy: [id number] Start Date: 11/09/15 Stop Date: 02/07/16 Status: Ordered Problem List Condition Confirmation Course Effective Dates [...] Diagnosis Diagnosis Type Effective Dates Health Status Clinical Service Informant Sacroiliac joint pain Discharge Diagnosis 10/19/22 Hip pain, right Discharge Diagnosis 10/19/22 Procedures Procedure Date Related Diagnosis Body Site Status Colonoscopy 1 10/06/22 Completed Upper GI (gastrointestinal) endoscopy 2 10/06/[address] of cervical spine 3 10/04/[address] of head without contrast 4 10/04/22 Completed Right Hip X-ray 5 10/04/22 Complet ed X-ray of chest wall 6 10/04/22 Com pleted MRI of lumbar spine without contrast 7 09/21/22 Completed MRI of right hip without contrast 8 09/21/22 Completed Hip X-ray 9 06/23/22 Completed Bone density scan 10, 11 01/07/22 Completed Mammogram 12 01/07/22 Completed MRI 13 01/12/21 Completed MRI of lumbar spine 14 08/13/20 Co mpleted Mammogram 15 12/23/19 Completed Mammogram 16 12/19/18 Completed Bone density scan 17 10/23/18 Comp leted MRI 18 05/30/[address] of cervical spine 19 04/24/18 C ompleted Colonoscopy 12/29/16 Completed ankle bimalleolar fracture ORIF 01/08/09 Completed Biopsy of breast 1991 Compl eted Cholecystectomy 1990 Completed hysterectomy 1986 Completed tonsillectomy 1946 Completed Cataract Completed Mammogram - screening 22 Completed 1-The examined colon appeared normal. -Sigmoid diverticulosis. -Internal hemorrhoids. -The examination was otherwise normal on direct and retroflexion views. 2-Normal esophagus. -Z-line regular. -Gastritis. Biopsied. -Normal duodenal bulb and second portion of the duodenum. 3IMPRESSION: 1. There is no edvidence of cervical spine fracture or subluxation. 2. Osteopenia and spondylotic change as above. 4IMPRESSION: There is no hemorrhage, mass effect, or edvidence of acute territorial ischemia by CT criteria. 5IMPRESSION: 1. Severe right hip osteoarthritis, similar to radiographs of September 22, 2022. 2. No acute fractures. 6IMPRESSION: No acute cardiopulmonary findings. 7IMPRESSION: 1. Severe central canal stenosis at L5-S1 [...] lumbar spine. 4. No lumbar spine fractures. 8IMPRESSION: Extensive marrow edema within the right acetabulum, [...] with Dr. Velez at time of dictation. 9Degenerative changes without evidence of acute abnormality. 1010 year probability of fracture: Major Osteoporotic: 25.2% Hip: 7.6% Population: [place]() Based on DualFemur (right) Neck BMD 11Recommended follow up DEXA 01/11/24. 12IMPRESSION: ACR BI-RADS CATEGORY 2: BENIGN There is no mammographic evidence of malignancy. A 1 year screening mammogram is recommended. (01-08-2023) The patient will receive written notification of the results. 13IMPRESSION: 1.No significant change in severe multilevel neural foraminal stenosis since MRI April. This is detailed above. 2.Normal cervical cord signal and caliber. 3.Mild multilevel central canal stenosis which is similar to prior exam. 14impression 1. Multilevel degenerative changes most severe at L5-S1 also associated with grade 1 anterolisthesus of L5 on S1 15ACR BI RADS CAT 0. Need addtl imaging. 16There is no mammographic evidence of malignancy. A 1 year screening mammogram is recommended. 17T-score: -1.9 181. Severe multilevel neural foraminal stenosis, as detailed above, predominantly due to facet arthrosis and uncovertebral hypertrophy 2. Mid multilevel central canal stenosis due to disc bulges with disc osteophyte complexes. Normal cervical cord signal and caliber. 19no acute fracture or subluxation multilevel discogenic changes and facet arthrosis as above 20Adenomatous polyp - repeat 5 years. 21benign 22Impression: There is no mammographic evidence of malignancy. A 1 year screening mammogram is recommended. (01/06/2022) The patient will receive written notification of the results. Social History Social History Type Response Tobacco 1 Smoking Status Never smoked cigaret chung Sex Female 1quit 1987 Primary care Note * MD Ericka, Luis Miguel Salvador: MODIFY MD Barnett Mark B: MODIFY Event Display: FCM Outpt Note Authored Date: [id number] TeleHealth Visit Note I have confirmed the patient’s name and date of . The patient has consented to this service,and I have advised the patient that this is a billable visit for which they may be subject to a copay. [ x_ ] The patient has initiated this visit after he/she was informed of the availability of telehealth for this medically necessary visit. [ _ ] The provider initiated this visit after explaining the need for this visit to the patient, who has consented to this virtual visit. I am located at my: [ _x ] Office [ _ ] Home [ _ ] Other: _ The patient is located at: [ x_ ] Home [ _ ] Other: _ This visit was conducted via live audio/video technology: [ _ ] [facility] [ _ ] Zoom This visit was conducted via [ x_ ] Telephone, and was not related to a visit or procedure that occurred within the past 7 days. Telephone Only Visit: Reason for audio only visit was [ _ ] no internet connection available [ x_ ] Other: _difficulty using [employer]. Total time spent communicating with the patient: 60_ minutes History of Present Illness 82yo Female here for hip pain 16/10 pain daily, starts at hip radiates down leg, denies numbness tingling. needs hip replacement follows Dr. Curry pain management for hip injections every 3-4 months for SI joint got injection in hospital wants to keep this ortho appointment evicted soon. No family, no friends recent low hbg Pain medicine tramadol not taking gabapentin for ptsd bid duloxetine 3 capsules daily paroxetine 40mg 1 capsule skin cream for pain calcium supplement FODMAPS diet tylenol [id number] BID cortisone shots Anxiety -diazapam from psych -tizanidine from psych Memory -donepezil Follows psych, said no tramadol Patient at this time is very frustrated with her pain, finding a regular provider she likes, andher upcoming eviction. She expressed this frustration to nursing staff, receptionist/telephone operator, and during the visit. Physical Exam Resp: no dyspnea on conversation Assessment/Plan 1. Hip pain, right Discussed with patient we need to review her current medications to ensure we have up to date records. Patient declined referral to another orthopaedic office for second opinion, believes she has a hip replacement scheduled 3 months for now. Discussed at this time we will cover methods for pain control only, I will not be refilling her tizanidine or diazapam at this time. At this time we will increase her tylenol to 1000mg TID and gabapentin to 300mg HS, if she tolerates the gabapentin will increase to 300mg BID. F/u in 2 weeks with telehealth visit. Suspect there is also an element of polypharmacy given her irregular duloxetine and paroxetine doses. Will review further during her next visit. Will attempt to have patient connected with care management during next visit if possible given her upcoming eviction 2. Sacroiliac joint pain Patient states she had difficulty using Amwell, next visit may also be telephone visit only. Attestation I was on the phone for [address] Jarquin and Ms. Rios. I concur with the plan, the patient was intermittently pleasant and aggressive during the call. Staff notified and aware. Telehealth may be a reasonable option moving forward. I do worry about polypharmacy and would recommend sole source point of care. Problem List/Past Medical History Ongoing Anemia Ankle [...] pain, left Upper back pain Procedure/Surgical History •Upper GI (gastrointestinal) endoscopy (10/06/2022)•Colonoscopy (10/06/2022)•Right Hip X-ray (10/04/2022)•CT of head without contrast (10/04/2022)•X-ray of chest wall (10/04/2022)•CT of cervical spine (10/04/2022)•MRI of right hip without contrast (09/21/2022)•MRI of lumbar spine without contrast (09/21/2022)•Hip X-ray (06/23/2022)•Bone density scan (01/07/2022)•Mammogram (01/07/2022)•MRI (01/12/2021)•MRI of lumbar spine (08/13/2020)•Mammogram (12/23/2019)•Mammogram (12/19/2018)•Bone density scan (10/23/2018)•MRI (05/30/2018)•CT of cervical spine (04/24/2018 )•Colonoscopy (12/29/2016)•ankle bimalleolar fracture ORIF (01/08/2009)•Biopsy of breast (1991)•Cholecystectomy (1990)•hysterectomy (1986)•tonsillectomy (1946)•Cataract•Mammogram - screening Medications ascorbic acid, 1000 mg, Daily biotin, 1 mg cholecalciferol(Vitamin D3 5000 intl units oral capsule) cycloSPORINE ophthalmic(Restasis), 1 drop, both eyes, bid diazePAM(diazepam 5 mg oral tablet), 5 mg= 1 tab, PO, tid, PRN DULoxetine(DULoxetine 30 mg oral delayed release capsule), 1 - 2 cap, PO, Daily gabapentin(gabapentin 300 mg oral capsule), 300 mg= 1 cap, PO, bid glycopyrrolate(glycopyrrolate 1 mg oral tablet) PARoxetine(Paxil 30 [...] vaccine, inactivated 12/16/2019 Recorded Comments : [facility] influenza virus vaccine, inactivated 12/21/2018 Recorded [...] Visit due 09/01/22 and every 1 year Adult Influenza Vaccine due 09/17/22 and every 1 year Due Adult COVID-19 Vaccination due 10/19/22 Unknown Frequency Adult Tdap/Td Vaccine due 10/19/22 Unknown Frequency Falls Plan of Care due 10/19/22 Unknown Frequency Shingles Vaccine due 10/19/22 One-time only Due In Future Body Mass Index not due until 06/23/23 and every 1 year Satisfied (in the past 1 year) Satisfied Lipid Screening on 05/04/22. Satisfied by Contributor_system, [employer] Electronic Signature on File Electronically Reviewed/Signed by: Kathy Jarquin DO Author Signature Dt/Tm:10/19/2022 12:15 PM Resident Department of Family Medicine Electronically Reviewed/Signed by: Luis Miguel Barnett MD Cospatriceer Signature Dt/Tm: 10/19/2022 03:55 PM Department of Family Medicine AD Patient Care team information Care Team Personnel Name: MARY Oseguera Jill Nicole Position: Nurse Pract - Family Med Member Role: Primary Care Provider Address: Address: [address] [place] [address] Care Team Related Persons Name: IVON OMALLEY Address: home [address] [facility] [place] [phone] Name: DC BUSTAMANTE Address: home No Address Provided
--- OUTSIDE RECORDS SUMMARY | 2022-12-12 21:41 | External Medical Summary | Summary of Care ---
Author Name Unknown Organization [facility] Address [address] [place] [address] Phone [phone] Care Team Providers Care Chemical Dependency Nurse Name Role Phone Deja Oseguera Primary Care Provider Reason for Visit * Reason Onset Date Comments Advice 10/11/2022 Encounter Details Date Type Department Care Team Description 10/11/2022 Telephone Family Practice [facility] [address] [place] [address] Ly Tavarez DO [address] [place] [address] Advice Allergies Active Allergy Reactions Severity Noted Date Comments Gluten Meal Diarrhea,Nausea/vomiting 09/29/2022 Lactose Nausea/vomiting 09/29/2022 Prednisone Other (Please comment) 12/22/2016 Urinary incontinence documented as of this encounter (statuses as of 11/02/2022) Medications Medication Sig Dispensed Refills Start Date [...] units Capsule Take by mouth. 0 Active Reading 3 1200 MG CAPS 0 Acti ve [...] 0 Active dilTIAZem HCl (CARDIZEM OINTMENT) 2% IL GEL Administer into the rectum 3 times [...] of the day.. 0 Active Calcium 1200 2805-8900 MG-UNIT Oral Tablet Chewable Take 1 Tablet by mouth in the morning. 0 Active Eye Lubricant Ophthalmic Ointment Instill into eye. 0 Active Magnesium Citrate 125 MG Oral Capsule Take by mouth daily. 0 Active documented as of this encounter (statuses as of 11/02/2022) Active Problems Problem Noted Date Prediabetes 08/08/2017 [...] as of this encounter (statuses as of 11/02/2022) Resolved Problems Problem Noted Date Resolved Date Encounter for examination fo r normal comparison and control in clinical research program 08/28/2017 10/21/2019 Overview: DO NOT DELETE [employer] [facility] Study: Project # [id number], [employer] [place]: Jace Arrington, PhD. SUMMARY: Goal: Establish test [...] contact study staff at ; after hours [employer] via the [facility] rotary operator . Please contact study team before resolving/deleting from patients problem list. Study phone number: [phone]. Diagnosis changed due to Research Module. Go to Snapshot for study details. Encounter for examination fo r normal comparison and control in clinical research program 08/28/2017 11/18/2021 Overview: DO NOT DELETE - [employer] Study: Project # [id number], [employer]: Nando Villeda, MS, MPH. SUMMARY: Goal: Establish [...] contact study staff at ; after hours [employer] via the [facility] rotary operator . - Please contact study team before resolving/deleting from patients problem list. Study phone number: [phone]. Diagnosis changed due to Research Module. Go [...] as of this encounter (statuses as of 11/02/2022) Immunizations Name Administration Dates Next Due PPD [...] encounter Miscellaneous Notes * Telephone Encounter - Ly Tavarez DO - 10/12/2022 10:10 AM EDT I would not be comfortable in providing preop clearance over a video as a WHEEL BLOCKER Thank you * Telephone Encounter - Randi Eng LPN - 10/11/2022 4:17 PM EDT Not sure how we can help this pt get established when she feels that she should not have to come infor an appointment as a new pt and because of her pain, AND to get clearance for hip replacement. Pt became very upset that it was even being suggested she be seen in person. * Telephone Encounter - Maricruz Figueroa LPN - 10/11/2022 3:16 PM EDT Provider to address: Any Reason for Call: Advice Contact: Telephone Call Contact Type: Follow-up Outcome: Called pt to ask about apt for tomorrow as a video rather then in person and pt became angry and said she has no PCP as her's left without notice. She is in extreme pain and falls daily due to hip needing to be replaced. Needs to be established to be approved and cleared to have hip replacement. She is also being evicted from her residence at [facility]. Tried to explain that she needs in person visit to get established in care, she proceeded to yell and ask why given her pain and inability to walk or drive a car to office. She also says there is no one that can bring her into office. Told pt we will ask if anyone will see her in video to get established in care without coming into office. See message below as well with previous call information. Total Time including non face to face (minutes): 15 * Telephone Encounter - Ly Tavarez DO - 10/11/2022 1:50 PM EDT Please call pt - is she coming here as a new patient? What are her expectations for a video visit as new patient? Why is she no longer following with her PCP - Deja Oseguera? * Telephone Encounter - Liliam Hardin LPN - 10/11/2022 1:06 PM EDT Provider to address: [place] Reason for Call: Advice Contact: Telephone Call Contact Type: Information Outcome: Patient calling in asking if Dr. Tavarez will do a Telephone call with her until she is able to get her hip replaced. Appointment is scheduled 10/12 2:00pm [facility]. [facility] appointment. I asked if she could do a video visit and she stated that she could only do Zoom. She stated that she will send Dr. Tavarez her list of medication so they could discuss these. She stated that she does not trust herself to drive, as it is her right hip that needs replaced. She stated that she is trying to get cleared to get a hip replacement through [facility] She stated that she falls all the time due to her hip. She went to take a shower last night and fell, denies hitting her head. She stated that she has taken Tramadol for pain prior and that it made her "crazier than a loon" She stated that she is not doing well living with her Right hip, she falls at least twice daily. Every now and then a medication makes her incontinent and it is difficult for her to get up out of bedto go to the bathroom. Even doing a load of laundry is hard for her to do, asking if there is any help that she would be able to get at home She stated that she goes to a psychiatrist, She does act out once in a while, she was inpatient once and followed a nurse down to the nurses station and spit on her shoe and had the police called on her and was given a ticket. She also stated that she is being evicted from her house because she has a month to month lease. Please advise and call patient back Total Time including non face to face (minutes): 20 * Telephone Encounter - MARIFER Royal - 10/11/2022 1:01 PM EDT Reason for patient's call: Patient calling concerning appointment and fall last evening, recent fall with head injury Caller was transferred to Liliam at the nurse line. documented in this encounter Plan of Treatment Health Maintenance Due Date Last Done Comments Albumin/Creatinine Ratio 01/18/2018 01/18/2017 CKD PHOS USE SMARTSET 78983 07/29/201807/18, 03/31/2016, 08/06/2014 Depression Screening, Annual for [...] Additional history exists CKD HGB USE SMARTSET 31491 08/04/202308/03, 07/29/2017, 03/31/2016, Additional history exists COLONOSCOPY-EVERY [...] filedocumented as of this encounter Care Teams Chemical Dependency Nurse Relationship Specialty Start Date End Date Deja Oseguera CRNP [address] [place] [address] PCP - General Nurse Practitioner 12/24/20 documented as of this encounter
--- OUTSIDE RECORDS SUMMARY | 2022-12-12 21:42 | External Medical Summary | Summary of Care ---
Author Name Unknown Organization [facility] Address [address] [facility] [place] [address] Phone [phone] Care Team Providers Care Lube Worker Name Role Phone Deja Oseguera Primary Care Provider Reason for Visit * Reason Onset Date Comments Appointment 09/26/2022 Encounter Details Date Type Department Care Team Description 09/26/2022 Telephone Gastroenterology, [facility] [address] [place] [address] Olivia Mcgrath CRNP [address] [place] [address] Appointment Allergies Active Allergy Reactions Severity Noted Date Comments Gluten Meal Diarrhea,Nausea/vomiting 09/29/2022 Lactose Nausea/vomiting 09/29/2022 Prednisone Other (Please comment) 12/22/2016 Urinary incontinence documented as of this encounter (statuses as of 10/03/2022) Medications Medication Sig Dispensed Refills Start Date [...] abdominal pain 120 Cap 5 10/13/2016 Active Cholecalciferol (VITAMIN D-3) 1000 units Capsule Take by mouth. 0 Active [place] 3 1200 MG CAPS 0 Acti ve Biotin 1 MG Capsule 0 Activ e Ascorbic Acid (VITAMIN C) 1000 MG Tablet Take 1 Tablet by mouth in the morning. 0 Active fluticasone (FLONASE) 50 MCG/ACT nasal sprayIndications:Pos t-nasal drip,Cough Administer 2 Sprays into each nostril daily. 1 Inhaler 5 05/18/2017 Active MEDICAL INSTRUCTIONS Use as directed. Bi-Est estrogen [...] 0 Active dilTIAZem HCl (CARDIZEM OINTMENT) 2% [place] GEL Administer into the rectum 3 times a day. 30 g 3 01/15/2020 Active Additional Information Patient not taking.Reported on 09/29/2022 Hydrocortisone (Perianal) 2.5 % External Cream (Anusol-HC) Administer into the rectum 2 times a day. 30 g 3 01/15/2020 Active Aspirin 325 MG Oral Tablet Delayed Release [...] largest meal of the day.. 0 Active documented as of this encounter (statuses as of 10/03/2022) Active Problems Problem Noted Date Prediabetes 08/08/2017 [...] as of this encounter (statuses as of 10/03/2022) Resolved Problems Problem Noted Date Resolved Date Encounter for examination fo r normal comparison and control in clinical research program 08/28/2017 10/21/2019 Overview: DO NOT DELETE [facility] DETECT Study: Project # [id number], Rib Sawyer: Jace Arrington, PhD. SUMMARY: Goal: Establish test [...] contact study staff at ; after hours Rib Sawyer via the [facility] corduroy cutter operator . Please contact study team before resolving/deleting from patients problem list. Study phone number: [phone]. Diagnosis changed due to Research Module. Go to Snapshot for study details. Encounter for examination fo r normal comparison and control in clinical research program 08/28/2017 11/18/2021 Overview: DO NOT DELETE - [facility] DETECT Study: Project # [id number], Rib Sawyer: Nando Villeda, MS, MPH. SUMMARY: Goal: Establish [...] contact study staff at ; after hours Rib Sawyer via the [facility] corduroy cutter operator . - Please contact study team before resolving/deleting from patients problem list. Study phone number: [phone]. Diagnosis changed due to Research Module. Go [...] as of this encounter (statuses as of 10/03/2022) Immunizations Name Administration Dates Next Due PPD 12/21/2017, 7,01/29/2016,02/20,02/10/2015 Pneumococcal Conjugate Vacc, 13 Valent (Prevnar) 07/08/2015 Pneumococcal Polysaccharide PPV23 (Pneumovax) 10/13/2016,08/16/2002 Seasonal Influenza, Cell Cul ture, 18 Yrs [...] encounter Miscellaneous Notes * Telephone Encounter - MARIFER Frank - 10/03/2022 10:28 AM EDT Called pt because Dr Edwards called off for 10/04 and EGD/colon needs to be rescheduled. Pt became very upset when I called and hung up after our brief conversation. I informed her that procedure for tomorrow had to be rescheduled and she swore and asked if I knew how long it took her toget a ride for the procedure. I waited a few minutes and called her back. Informed her that we needed to rescheduled her procedures and she became emotional stating she is in pain. States she needs pain management for her leg andneeds to find out what is wrong with her leg more than where the bleeding is coming from, said she fell twice recently, she mentioned something about medication and Dr Curry and then she hung up then phone. Procedures for tomorrow have been canceled. * Telephone Encounter - MARIFER Rodriguez - 10/03/2022 9:45 AM EDT Procedures scheduled on 10/04 * Telephone Encounter - Nury Plascencia RN - 09/28/2022 11:47 AM EDT Pt calling very upset in regards to all the issues she has been facing since being in the hospital and now being evicted from her apartment. For the majority of our conversation she expressed frustration over her treatment at [facility] and the choices made by her hospitalist. She felt that she was mis managed by ortho and there was no communication with Dr. Curry in regards to her care. She explained that she needed to have a work up for Anemia before anything can be done and is agreeable to have EGD/Colon as ordered. She became very emotional, sometimes shouting about how wrong everything is with her life and that she get "nowhere with anybody." I offered to balance assembler her contact information for the [facility] [place], she deferred as she states she has had multiple phone calls with housing etc from "those people and have gotten nowhere." At times during our conversation, pt made mentions of hopelessness and "being done with it all." I asked if she felt that she was a danger to herself or if she had any thoughts of self harm. She denied this and states," That is not even a question or a possibility. If anyone was in danger it would be those people who treated me so badly and called the police on me for spitting on their shoes at the hospital after they couldn't even give me my medications for hours and that is the shit they do to me, have the police come at 3:30 in the morning to give me a ticket." Pt was transferred to scheduling to make an appointment for scopes. I called [facility] (MARY Hagan) office to inform them of this conversation any my concerns for her mental health and wellbeing. They verbalized they will reach out to her for a status check. * Telephone Encounter - MARY Jimenes - 09/26/2022 10:59 AM EDT Pt seen at [facility] for anemia wo gross GI bleeding. Pls arrange outpt EGD and colonoscopy appts MARY Bishpo documented in this encounter Plan of Treatment Upcoming Encounters Date Type Specialty Care Team Description 10/04/2022 Hospital Encounter Endoscopy Jace Edwards, [address] [place] [address] 10/04/2022 Surgery Endoscopy Jace Edwards, DO [address] [place] [address] COLONOSCOPY FLEXIBLE PROXIMAL DIAGNOSTIC 10/26/2022 Office Visit Family Medicine Ly Tavarez DO [address] [place] [address] 11/04/2022 Office Visit Orthopedics Claude Diaz MD [address] [place] [address] Scheduled Orders Name Type Priority Associated Diagnoses Orde r Schedule EGD, FLEXIBLE, DIAGNOSTIC Procedures Routine Anemia, unspecified type Other general symptoms and signs Ordered: 09/26/2022 COLONOSCOPY, DIAGNOSTIC (RECTUM) Procedures Routine Anemia, unspecified type Iron deficiency anemia, unspecified iron deficiency anemia type Ordered: 09/26/2022 Scheduled Procedures Name Priority Associated Diagnoses Date/Ti me COLONOSCOPY FLEXIBLE PROXIMA L DIAGNOSTIC Recall History of colon polyps Anemia, unspecified type Iron deficiency anemia, unspecified iron deficiency anemia type 10/04/2022 2:00 PM EDT ESOPHAGOGASTRODUODENOSCOPY ( EGD), FLEXIBLE, TRANSORAL, DIAGNOSTIC Recall History of colon polyps Anemia, unspecified type Iron deficiency anemia, unspecified iron deficiency anemia type 10/04/2022 2:00 PM EDT Health Maintenance Due Date Last Done Comments Albumin/Creatinine Ratio 01/18/2018 01/18/2017 CKD PHOS USE SMARTSET 25675 07/29/201807/18, 03/31/2016, 08/06/2014 Depression Screening, Annual for Pts 12 and Over 08/11/2018 08/11/2017 HbA1c 08/24/2018 08/24/2017 DXA Scan 03/15/2019 03/15/2012 Zoster Vaccines (3 of 3) 10/27/2021 09/01/2021, 03/2007 COVID-19 Vaccine (3 - Pfizer series) 11/26/2021 10/01/2021, 05/15/2020, 04/24/2020 DTaP,Tdap,and Td Vaccines (2 - Td or Tdap) 12/19/2021 12/20/2011 COLONOSCOPY-EVERY 5 YRS AGES 18-100 12/29/2021 12/29/2016, 12/29/2016 Influenza Vaccine (FLU shot) (#1) 2022 12/16/2019, 12/21/2018, 12/21/2017, Additional history exists GFR 02/03/2023 08/03/2022, 08/18, 07/29/2017, Additional history exists CKD HGB USE SMARTSET 11425 08/04/202308/03, 07/29/2017, 03/31/2016, Additional history exists Pneumococcal Vaccine: 65+ Years [...] Not on filedocumented as of this encounter Visit Diagnoses Diagnosis Anemia, unspecified type- Primary Other general symptoms and signs Iron deficiency anemia, unspecified iron deficiency anemia type History of colon polyps Personal history of colonic polyps Anemia, unspecified type Iron deficiency anemia, unspecified iron deficiency anemia type documented in this encounter Care Teams Lube Worker Relationship Specialty Start Date End Date Deja Oseguera CRNP [address] [place] [address] PCP - General Nurse Practitioner 12/24/20 documented as of this encounter
--- OUTSIDE RECORDS SUMMARY | 2022-12-12 21:42 | External Medical Summary | Summary of Care ---
Author Name Unknown Organization [facility] Address [address] [facility] [place] [address] Phone [phone] Care Team Providers Care Visual Basic Programmer Name Role Phone Deja Oseguera Primary Care Provider Reason for Visit * Reason Onset Date Comments Advice 09/29/2022 Med Request 09/29/2022 Encounter Details Date Type Department Care Team Description 09/29/2022 Telephone Interventional Pain Center, [facility] [address] [place] [address] Ryder Curryian, [address] [place] [address] Advice; Med Request Allergies Active Allergy Reactions Severity Noted Date [...] units Capsule Take by mouth. 0 Active [place] 3 1200 MG CAPS 0 Acti ve [...] 0 Active dilTIAZem HCl (CARDIZEM OINTMENT) 2% [place] GEL Administer into the rectum 3 times [...] of the day.. 0 Active Calcium 1200 0375-1379 MG-UNIT Oral Tablet Chewable Take 1 Tablet [...] program 08/28/2017 10/21/2019 Overview: DO NOT DELETE [facility] Study: Project # [id number], Gas Welding Machine Operator: Jace Arrington, PhD. SUMMARY: Goal: [...] contact study staff at ; after hours Gas Welding Machine Operator via the [facility] hospital otr owner operator truck driver . Please contact study team before resolving/deleting from patients problem list. Study phone number: [phone]. Diagnosis changed due to Research Module. Go to Snapshot for study details. Encounter for examination fo r normal comparison and control in clinical research program 08/28/2017 11/18/2021 Overview: DO NOT DELETE - [facility] DETECT Study: Project # [id number], Gas Welding Machine Operator: Nando Villeda, MS, MPH. SUMMARY: [...] contact study staff at ; after hours Gas Welding Machine Operator via the [facility] hospital otr owner operator truck driver . - Please contact study team before resolving/deleting from patients problem list. Study phone number: [phone]. Diagnosis changed due to Research Module. Go [...] encounter Miscellaneous Notes * Telephone Encounter - Jennifer Rodriguez CPhT - 10/03/2022 11:57 AM EDT Tried calling pt to inform her of MD message- no answer, was unable to leave VM Thank you, Jennifer Rodriguez CPhT II [employer] [facility] 10/03/2022, 11:57 AM * Telephone Encounter - Jennifer Rodriguez CPhT - 09/30/2022 2:57 PM EDT Pt calling in asking if MD can send in tramadol 50mg in for her leg pain. [facility] gave her 3 days worth of medication- take 1-2 tablets every 4 to 6 hours as neededfor pain. - pt is low on medication Pt does not see her new PCP until 10/26. Pt is asking to be called when/if medication is sent in Thank you, Jennifer Rodriguez CPhT [employer] [facility] ([facility]) 09/30/2022, 2:59 PM * Telephone Encounter - Dominique Walker LPN - 09/29/2022 11:18 AM EDT Patient called and wants to know what she can take for her severe pain until she's able to get her hip replaced. She's in severe pain and has to have GI workup completed for hip will be discussed. Patient screaming and very upset at [facility] staff and is difficult to keep on track during conversation. States she would have spit in the RN's face instead of her shoes if she could have. When I advised patient I would call her back after speaking with , she hung up on me. documented in this encounter Plan of Treatment Upcoming Encounters Date Type Specialty Care Team Description 10/26/2022 Office Visit Family Medicine Ly Tavarez DO [address] [place] [address] 11/04/2022 Office Visit Orthopedics Claude Diaz MD [address] [place] [address] Health Maintenance Due Date Last Done Comments Albumin/Creatinine Ratio 01/18/2018 01/18/2017 CKD PHOS USE SMARTSET 75224 07/29/201807/18, 03/31/2016, 08/06/2014 Depression Screening, Annual for [...] Additional history exists CKD HGB USE SMARTSET 44525 08/04/202308/03, 07/29/2017, 03/31/2016, Additional history exists Pneumococcal [...] filedocumented as of this encounter Care Teams Visual Basic Programmer Relationship Specialty Start Date End Date Deja Oseguera CRNP [address] [place] [address], [place] [address] PCP - General Nurse Practitioner 12/24/20 documented as of this encounter
--- OUTSIDE RECORDS SUMMARY | 2022-12-12 21:42 | External Medical Summary | Summary of Care ---
Author Name Unknown Organization [facility] Address [address] [facility] [place] [address] Phone [phone] Care Team Providers Care Impression Printer Name Role Phone Deja Oseguera Primary Care Provider Reason for Visit * Reason Onset Date Comments Appointment 09/26/2022 Encounter Details Date Type Department Care Team Description 09/26/2022 Telephone Gastroenterology, [facility] [address] [place] [address] Olivia Mcgrath CRNP [address] [place] [address] Appointment Allergies Active Allergy Reactions Severity Noted Date Comments Gluten Meal Diarrhea,Nausea/vomiting 09/29/2022 Lactose Nausea/vomiting 09/29/2022 Prednisone Other (Please comment) 12/22/2016 Urinary incontinence documented as of this encounter (statuses as of 10/05/2022) Medications Medication Sig Dispensed Refills Start Date [...] units Capsule Take by mouth. 0 Active [place] 3 1200 MG CAPS 0 Acti ve [...] 0 Active dilTIAZem HCl (CARDIZEM OINTMENT) 2% [place] GEL Administer into the rectum 3 times [...] as of this encounter (statuses as of 10/05/2022) Active Problems Problem Noted Date Prediabetes 08/08/2017 [...] as of this encounter (statuses as of 10/05/2022) Resolved Problems Problem Noted Date Resolved Date Encounter for examination fo r normal comparison and control in clinical research program 08/28/2017 10/21/2019 Overview: DO NOT DELETE [facility] DETECT Study: Project # [id number], Sales Representative Health Insurance: Jace Arrington, PhD. SUMMARY: Goal: Establish test [...] contact study staff at ; after hours Sales Representative Health Insurance via the [facility] grinder and honer operator automatic . Please contact study team before resolving/deleting from patients problem list. Study phone number: [phone]. Diagnosis changed due to Research Module. Go to Snapshot for study details. Encounter for examination fo r normal comparison and control in clinical research program 08/28/2017 11/18/2021 Overview: DO NOT DELETE - [facility] DETECT Study: Project # [id number], Sales Representative Health Insurance: Nando Villeda, MS, MPH. SUMMARY: Goal: Establish [...] contact study staff at ; after hours Sales Representative Health Insurance via the [facility] grinder and honer operator automatic . - Please contact study team before resolving/deleting from patients problem list. Study phone number: [phone]. Diagnosis changed due to Research Module. Go [...] as of this encounter (statuses as of 10/05/2022) Immunizations Name Administration Dates Next Due PPD [...] * Telephone Encounter - MARIFER Frank - 10/05/2022 9:36 AM EDT Pt called back and requested to reschedule EGD/colon. Added for tomorrow with Sheela for procedures. * Telephone Encounter - MARIFER Frank - [...] she expressed frustration over her treatment at [facility] and the choices made by her hospitalist. [...] get "nowhere with anybody." I offered to grinder set up operator universal her contact information for the [facility] [place], she deferred as she states she has [...] 09/26/2022 10:59 AM EDT Pt seen at [facility] for anemia wo gross GI bleeding. Pls arrange outpt EGD and colonoscopy appts MARY Bishop documented in this encounter Plan of Treatment Upcoming Encounters Date Type Specialty Care Team Description 10/06/2022 Hospital Encounter Endoscopy Gissel Coker MD [address] [place] [address] 10/06/2022 Surgery Endoscopy Gissel Coker MD [address] [place] [address] COLONOSCOPY FLEXIBLE PROXIMAL DIAGNOSTIC 10/26/2022 Office Visit Family Medicine Ly Tavarez DO [address] [place] [address] 11/04/2022 Office Visit Orthopedics Claude Diaz MD [address] [place] [address] Scheduled Orders Name Type Priority Associated Diagnoses [...] deficiency anemia, unspecified iron deficiency anemia type 10/06/2022 2:15 PM EDT ESOPHAGOGASTRODUODENOSCOPY ( EGD), FLEXIBLE, TRANSORAL, DIAGNOSTIC Recall History of colon polyps Anemia, unspecified type Iron deficiency anemia, unspecified iron deficiency anemia type 10/06/2022 2:15 PM EDT Health Maintenance Due Date Last Done Comments Albumin/Creatinine Ratio 01/18/2018 01/18/2017 CKD PHOS USE SMARTSET 64260 07/29/201807/18, 03/31/2016, 08/06/2014 Depression Screening, Annual for [...] Additional history exists CKD HGB USE SMARTSET 13270 08/04/202308/03, 07/29/2017, 03/31/2016, Additional history exists Pneumococcal [...] type documented in this encounter Care Teams Impression Printer Relationship Specialty Start Date End Date Deja Oseguera CRNP [address] [place] [address] PCP - General Nurse Practitioner 12/24/20 documented as of this encounter
--- OUTSIDE RECORDS SUMMARY | 2022-12-12 21:42 | External Medical Summary | Summary of Care ---
Author Name Unknown Organization [facility] Address [address] [place] [address] Phone [phone] Care Team Providers Care Behavioral Psychologist Name Role Phone Deja Oseguera Primary Care Provider Reason for Visit * Auth/Cert Specialty Diagnoses / Procedures Referred By Yonny t Referred To Contact Diagnoses History of colon polyps Anemia, unspecified type Iron deficiency anemia, unspecified iron deficiency anemia type History of colon polyps [Z86.010] Anemia, unspecified type [D64.9] Iron deficiency anemia, unspecified iron deficiency anemia type [D50.9] Procedures COLONOSCOPY, DIAGNOSTIC (RECTUM) EGD, FLEXIBLE, DIAGNOSTIC COLONOSCOPY FLEXIBLE PROXIMAL DIAGNOSTIC ESOPHAGOGASTRODUODENOSCOPY (EGD), FLEXIBLE, TRANSORAL, DIAGNOSTIC Referral ID Status Reason Start Date Expiration Date Visits Re quested Visits Authorized [id number] Encounter Details Date Type Department Care Team Description 10/06/2022 Hospital Encounter ENDO [facility], Endoscopy Room [facility] [address] [facility] [place] [id number] Gissel Coker MD [address] [place], [place] [address]e [facility] [address] [facility] [place] [address] Various: GICOLON,UGI Allergies Active Allergy Reactions Severity Noted Date Comments Gluten Meal Diarrhea,Nausea/vomiting 09/29/2022 Lactose Nausea/vomiting 09/29/2022 Prednisone Other (Please comment) 12/22/2016 Urinary incontinence documented as of this encounter (statuses as of 10/07/2022) Medications Medication Sig Dispensed Refills Start Date [...] units Capsule Take by mouth. 0 Active Ell[place] 3 1200 MG CAPS 0 Acti ve [...] 0 Active dilTIAZem HCl (CARDIZEM OINTMENT) 2% UT GEL Administer into the rectum 3 times [...] of the day.. 0 Active Calcium 1200 6361-3987 MG-UNIT Oral Tablet Chewable Take 1 Tablet by mouth in the morning. 0 Active Eye Lubricant Ophthalmic Ointment Instill into eye. 0 Active Magnesium Citrate 125 MG Oral Capsule Take by mouth daily. 0 Active documented as of this encounter (statuses as of 10/07/2022) Active Problems Problem Noted Date Prediabetes 08/08/2017 [...] as of this encounter (statuses as of 10/07/2022) Resolved Problems Problem Noted Date Resolved Date Encounter for examination fo r normal comparison and control in clinical research program 08/28/2017 10/21/2019 Overview: DO NOT [employer] DETECT Study: Project # [id number], Customer Experience Manager: Jace Arrington, PhD. SUMMARY: Goal: Establish test [...] contact study staff at ; after hours Customer Experience Manager via the [facility] automatic vulcanizing operator . Please contact study team before resolving/deleting from patients problem list. Study phone number: [phone]. Diagnosis changed due to Research Module. Go to Snapshot for study details. Encounter for examination fo r normal comparison and control in clinical research program 08/28/2017 11/18/2021 Overview: DO NOT DELETE [employer] DETECT Study: Project # [id number], Customer Experience Manager: Nando Villeda, MS, MPH. SUMMARY: Goal: Establish [...] contact study staff at ; after hours Customer Experience Manager via the [facility] hospital automatic vulcanizing operator . - Please contact study team before resolving/deleting from patients problem list. Study phone number: [phone]. Diagnosis changed due to Research Module. Go [...] as of this encounter (statuses as of 10/07/2022) Immunizations Name Administration Dates Next Due PPD [...] on file documented as of this encounter Last Filed Vital Signs Vital Sign Reading Time Taken Comments Blood Pressure 148/58 10/06/2022 3:31 PM EDT Pulse 80 10/06/2022 3:31 PM EDT Temperature 36.2 °C (97.2 °F) 10/06/2022 3:31 PM ED T Respiratory Rate 16 10/06/2022 3:31 PM EDT Oxygen Saturation 98% 10/06/2022 3:31 PM EDT Inhaled Oxygen Concentration - - Weight 68.9 kg (152 lb) 10/05/2022 9:42 AM EDT Height 160 cm (5' 3") 10/05/2022 9:42 AM EDT Body Mass Index 26.93 10/05/2022 9:42 AM EDT documented in this encounter H&P Notes * Gissel Coker MD - 10/06/2022 2:24 PM EDT Endoscopy Pre-Procedure Assessment Name: Laurel Rios Date: 10/06/2022 Time: 2:24 PM Procedure(s): · Colonoscopy; with Indication(s) of colon polyp surveillance and anemia · Upper GI Endoscopy; with Indication(s) of anemia Endoscopy Pre-Procedure Assessment: Prior to the procedure, the patient is identified. The patient's history, medications and allergieshave been reviewed. The patient is competent. The risks and benefits of the proposed procedure and the planned sedation have been discussed with the patient. All questions have been answered and informed consent for the procedure has been obtained. Prior to Admission medications Medication Sig Last Dose Discont. Eye Lubricant Ophthalmic Ointment Instill into eye. 10/06/2022 valsartan (DIOVAN) 80 MG Tablet Take 1 Tab by mouth daily. 10/04/2022 Acetaminophen 500 MG Oral Tablet Take 1 Tablet by mouth every 6 hours as needed for Pain. 10/06/2022 gabapentin (NEURONTIN) 100 MG Capsule 2 Capsules. Take 3 times a day Past Week Polyethylene Glycol 3350 17 GM/SCOOP Oral Powder Take 17 g by mouth in the morning and 17 g before bedtime. Dissolve one heaping tablespoon in 8 ounces of water or juice.. 10/05/2022 cycloSPORINE 0.05 % Ophthalmic Emulsion Instill 1 Drop into both eyes in the morning and 1 Drop before bedtime. affected eye(s). 10/06/2022 diazepam (VALIUM) 5 MG Tablet TAKE 1/2 TO ONE TABLET UP TO TWICE A DAY NEEDED FOR MUSCLE SPASM 10/05/2022 RED YEAST RICE 600 MG PO CAPS 1 daily 10/05/2022 STOOL SOFTENER 100 MG PO TABS Take by mouth. 10/05/2022 Calcium 1200 8147-2931 MG-UNIT Oral Tablet Chewable Take 1 Tablet by mouth in the morning. 10/04/2022 Magnesium Citrate 125 MG Oral Capsule Take by mouth daily. 10/04/2022 Donepezil HCl 10 MG Oral Tablet Take 1 Tablet by mouth in the morning. Take with largest meal of the day.. 10/04/2022 Aspirin-Caffeine 500-32.5 MG Oral Tablet Take by mouth . Patient not taking: Reported on 10/06/2022 Not Taking traMADol HCl 50 MG Oral Tablet (Ultram) Not Taking Aspirin 325 MG Oral Tablet Delayed Release Take 1 Tablet by mouth in the morning and 1 Tablet at noon and 1 Tablet before bedtime. Patient takes OTC for pain. Patient not taking: Reported on 10/06/2022 Not Taking dilTIAZem HCl (CARDIZEM OINTMENT) 2% UT GEL Administer into the rectum 3 times a day. Patient not taking: Reported on 09/29/2022 Not Taking Hydrocortisone (Perianal) 2.5 % External Cream (Anusol-HC) Administer into the rectum 2 times a day. Patient not taking: Reported on 10/06/2022 Not Taking Witch Sheryl-Glycerin External Pad Apply topically to affected area as needed . Patient not taking: Reported on 09/29/2022 Not Taking Cyanocobalamin (VITAMIN B 12) 500 MCG TABS Take by mouth. Patient not taking: Reported on 10/06/2022 Not Taking glycopyrrolate (ROBINUL) 1 MG Tablet Take 1 Tablet by mouth in the morning and 1 Tablet at noon and1 Tablet before bedtime. 10/04/2022 MEDICAL INSTRUCTIONS Use as directed. Bi-Est estrogen cream --apply cream to arm every other day fluticasone (FLONASE) 50 MCG/ACT nasal spray Administer 2 Sprays into each nostril daily. Patient not taking: Reported on 10/06/2022 Not Taking Ascorbic Acid (VITAMIN C) 1000 MG Tablet Take 1 Tablet by mouth in the morning. 10/04/2022 Biotin 1 MG Capsule Not Taking Cholecalciferol (VITAMIN D-3) 1000 units Capsule Take by mouth. 10/04/2022 Ellendale 3 1200 MG CAPS Not Taking dicyclomine (BENTYL) 10 MG Capsule Take 1 Cap by mouth 4 times a day as needed for Cramping. For abdominal pain Patient not taking: Reported on 10/06/2022 Not Taking DULoxetine (CYMBALTA) 20 MG CPEP 30 mg. 10/04/2022 tiZANidine (ZANAFLEX) 4 MG Tablet Take 0.5 Tablets by mouth. 10/04/2022 PARoxetine (PAXIL) 30 MG Tablet Take 1 Tab by mouth daily. 10/04/2022 PROGESTERONE 1000 MG/60GM EX CREA Apply topically to affected area. Patient not taking: Reported on 10/06/2022 Not Taking Review of patient's allergies indicates: Allergen Reactions • Gluten Meal Diarrhea and Nausea/vomiting • Lactose Nausea/vomiting • Prednisone Other (Please comment) Urinary incontinence Ht 1.6 m (5' 3") | Wt 68.9 kg (152 lb) | BMI 26.93 kg/m² | BSA 1.75 m² Physical Exam: MS: normal - oriented to person/place/time HEENT: racoon eyes Abd: soft nt nd Resp: normal ASA Grade: II - A patient with mild systemic disease. This patient has undergone a preprocedural evaluation. A determination has been made to proceed with the planned procedure under [facility] procedural guidelines and the [facility] Non-Emergent, Elective Medical Services and Treatment Recommendations (published on 06-25-19). The community and hospital prevalence of COVID-19 has been discussed as well as this patient's specific risks associated with SARS-CoV-19 infection. Based upon the clinical acuity and patient-specific care considerations, this procedure is deemed a Tier III - Procedures at little or no risk for clinical deterioration (example - cosmetic). After reviewing the risks and benefits of endoscopy and colonoscopy including infection, bleeding, perforation, missed lesions, splenic laceration, the patient is deemed in satisfactory condition to undergo the procedure. The anesthesia plan is to use general anesthesia. Gissel Coker MD 10/06/2022 documented in this encounter Procedure Notes * MARY Angel - 10/06/2022 1:46 PM EDTAssociated Order(s): COLONOSCOPY [facility] Patient Name: Laurel Rios Procedure Date: 10/06/2022 1:46 PM Date of : 1940 Admit Type: Outpatient Note Status: Finalized Date of : 1940 Admit Type: Outpatient Age: 82 Room: Endo 3 Gender: Female Note Status: Finalized Procedure: Colonoscopy Indications: High risk colon cancer surveillance: personal history of colon polyps and anemia Providers: Gissel Coker MD (Doctor), Delvin Stout RN, Tc Jarquin CRNA (Anesthesia Staff) Patient Profile: Last Colonoscopy: December 2016. Referring MD: Deja Oseguera Medicines: See the Anesthesia note for documentation of the administered medications Complications: No immediate complications. Procedure: Pre-Anesthesia Assessment: - - Patient identification and proposed procedure were verified prior to the procedure by the physician, the nurse and the anesthesiologist. The procedure was verified in the pre-procedure area. - Prior to the procedure, a History and Physical was performed, and patient medications, allergies and sensitivities were reviewed. The patient's tolerance of previous anesthesia was reviewed. - The risks and benefits of the procedure and the sedation options and risks were discussed with the patient. All questions were answered and informed consent was obtained. - The medication list for this patient has been reviewed prior to the procedure and has been determined that the patient may proceed with the planned study. Any medication changes made as a result of the findings of this procedure have been discussed with the patient and/or healthcare representative at the time of discharge from the department. After I obtained informed consent, the scope was passed under direct vision. All instruments were visually inspected immediately before and after removal from the patient to ensure they are fully intact. Throughout the procedure, the patient's blood pressure, pulse, and oxygen saturations were monitored continuously. The Colonoscope was introduced through the anus and advanced to the cecum, identified by appendiceal orifice and ileocecal valve. The colonoscopy was somewhat difficult due to a redundant colon. Successful completion of the procedure was aided by using manual pressure and straightening and shortening the scope to obtain bowel loop reduction. The patient tolerated the procedure well. The quality of the bowel preparation was adequate to identify polyps 6 mm and larger in size. Findings & Specimens: The examined colon appeared normal. Multiple small and large-mouthed diverticula were found in the sigmoid colon. Internal hemorrhoids were found during retroflexion. The exam was otherwise without abnormality on direct and retroflexion views. Impression: - The examined colon appeared normal. - Sigmoid diverticulosis. - Internal hemorrhoids. - The examination was otherwise normal on direct and retroflexion views. Recommendation: - Discharge to home with an escort. Gissel Coker MD 10/06/2022 3:15:35 PM This report has been signed electronically. * MARY Angel - 10/06/2022 1:45 PM EDTAssociated Order(s): UPPER GI ENDOSCOPY [facility] Patient Name: Laurel Rios Procedure Date: 10/06/2022 1:45 PM Date of : 1940 Admit Type: Outpatient Note Status: Finalized Date of : 1940 Admit Type: Outpatient Age: 82 Room: [facility] 3 Gender: Female Note Status: Finalized Procedure: Upper GI endoscopy Indications: Anemia Providers: Gissel Coker MD (Doctor), Delvin Stout RN, Tc Jarquin CRNA (Anesthesia Staff) Referring MD: Deja Oseguera Medicines: See the Anesthesia note for documentation of the administered medications Complications: No immediate complications. Procedure: Pre-Anesthesia Assessment: - Patient identification and proposed procedure were verified prior to the procedure by the physician, the nurse and the anesthesiologist. The procedure was verified in the pre-procedure area. - Prior to the procedure, a History and Physical was performed, and patient medications, allergies and sensitivities were reviewed. The patient's tolerance of previous anesthesia was reviewed. - The risks and benefits of the procedure and the sedation options and risks were discussed with the patient. All questions were answered and informed consent was obtained. - The medication list for this patient has been reviewed prior to the procedure and has been determined that the patient may proceed with the planned study. Any medication changes made as a result of the findings of this procedure have been discussed with the patient and/or healthcare representative at the time of discharge from the department. - After obtaining informed consent, the endoscope was passed under direct vision. All instruments were visually inspected immediately before and after removal from the patient to ensure they are fully intact. Throughout the procedure, the patient's blood pressure, pulse, and oxygen saturations were monitored continuously. The Colonoscope was introduced through the mouth and advanced to the second part of duodenum. The upper GI endoscopy was accomplished without difficulty. The patient tolerated the procedure well. Findings & Specimens: The examined esophagus appeared normal. The Z-line appeared regular. Localized mild inflammation characterized by erythema was found in the stomach. Biopsies were taken with a cold forceps for Helicobacter pylori testing. The pathology specimen was placed into Bottle Number 1. Verification of patient identification for the specimen was done by the physician and nurse using the patient's name and medical record number. The examined stomach otherwise appeared normal. The duodenal bulb and second portion of the duodenum appeared normal. Impression: - Normal esophagus. - Z-line regular. - Gastritis. Biopsied. - Normal duodenal bulb and second portion of the duodenum. Recommendation: - Await pathology results. - Proceed to colonoscopy. Gissel Coker MD 10/06/2022 3:15:59 PM This report has been signed electronically. documented in this encounter Nursing Notes * Tatiana Collins RN - 10/06/2022 4:05 PM EDT All discharge instructions discussed. Paper copy of discharge information and procedure reports given to her to take home. Pt was assisted with getting dressed and was placed in a W/C to be escorted to the vehicle. * Tatiana Collins RN - 10/06/2022 3:35 PM EDT Pt was received into the PACU II, room 4 via stretcher from the procedure room s/p EGD and colonoscopy. Arrived to the room at 1516. Currently sitting upright, sipping ice water at intervals. Dr. Coker was in to visit pt and discussed her procedures with her. O2 sats 97% on RA, resps easy and unlabored. IV fluids infusing to her right hand without issue. Conversing with staff appropriately. * Francis Stout RN - 10/06/2022 3:15 PM EDT Specimen(s) and location(s) verified with physician post procedure 3:15 PM Francis Stout RN Mid abdominal pressure given per Dr. Coker to assist with scope advancement. Pt tolerated well See anesthesia record for medication administered during procedure. Francis Stout RN Pre cleaning of scope at the bedside started by monitoring tech. * Chelsea Trevino RN - 10/06/2022 2:28 PM EDT The following pt discharge instructions reviewed with pt prior to prodedure: No driving today. No alcohol today. No signing of legal documents. Rest as much as possible today and can return to normal activities tomorrow. No operating any heavy equipment today. Diet as tolerated. Pt verbalized understanding. documented in this encounter Plan of Treatment Upcoming Encounters Date Type Specialty Care Team Description 10/26/2022 Office Visit Family Medicine Ly Tavarez DO [address] [place] [address] 11/04/2022 Office Visit Orthopedics Claude Diaz MD [address] [place] [address] Pending Results Name Type Priority Associated Diagnoses Date /Time SURGICAL PATHOLOGY Pathology Routine History of colon polyps Anemia, unspecified type Iron deficiency anemia, unspecified iron deficiency anemia type 10/06/2022 3:14 PM EDT Scheduled Orders Name Type Priority Associated Diagnoses Orde r Schedule SURGICAL PATHOLOGY Pathology Routine History of colon polyps Anemia, unspecified type Iron deficiency anemia, unspecified iron deficiency anemia type Release Upon Ordering for 1 Occurrences starting 10/06/2022, 1 completed Health Maintenance Due Date Last Done Comments Albumin/Creatinine Ratio 01/18/2018 01/18/2017 CKD PHOS USE SMARTSET 01586 07/29/201807/18, 03/31/2016, 08/06/2014 Depression Screening, Annual for [...] Additional history exists CKD HGB USE SMARTSET 13069 08/04/202308/03, 07/29/2017, 03/31/2016, Additional history exists COLONOSCOPY-EVERY 5 YRS AGES 18-100 10/07/2027 10/06/2022, 12/29/2016, 12/29/2016 Pneumococcal Vaccine: 65+ Years Completed 10/13/2016, 07/08/2015, [...] Not on filedocumented as of this encounter Procedures Procedure Name Priority Date/Time Associated Diagnosis Comments COLONOSCOPY 10/06/2022 1:46 PM EDT UPPER GI ENDOSCOPY 10/06/2022 1: 45 PM EDT documented in this encounter Results * COLONOSCOPY (10/06/2022 1:46 PM EDT) 10/06/2022 1:46 PM EDT Procedure Note MARY Angel - 10/06/2022 1:46 PM EDT [facility] Patient Name: Laurel Rios Procedure Date: 10/06/2022 1:46 PM Date of : 1940 Admit Type: Outpatient Note Status:Finalized Date of : 1940 Admit Type: Outpatient Age: 82 Room: [facility] 3 Gender: Female Note Status: Finalized Procedure: Colonoscopy Indications: High risk colon cancer surveillance: personalhistory of colon polyps and anemia Providers: Gissel Coker MD (Doctor), Delvin Stout RN,Tc Jarquin CRNA (Anesthesia Staff) Patient Profile: Last Colonoscopy: December 2016. Referring MD: Deja Oseguera Medicines: See the Anesthesia note for documentation of theadministered medications Complications: No immediate complications. Procedure: Pre-Anesthesia Assessment: - - Patient identification and proposed procedurewere verified prior to the procedure by the physician, the nurse and theanesthesiologist. The procedure was verified in the pre-procedure area. - Prior to the procedure, a History and Physicalwas performed, and patient medications, allergies and sensitivities werereviewed. The patient's tolerance of previous anesthesia was reviewed. - The risks and benefits of the procedure and thesedation options and risks were discussed with the patient. All questions wereanswered and informed consent was obtained. - The medication list for this patient has beenreviewed prior to the procedure and has been determined that the patient may proceed with the plannedstudy. Any medication changes made as a result of the findings of this procedure have beendiscussed with the patient and/or healthcare representative [facility] After I obtained informed consent, the scope waspassed under direct vision. All instruments were visually inspected immediatelybefore and after removal from the patient to ensure they are fully intact. Throughout the procedure, the patient's bloodpressure, pulse, and oxygen saturations were monitored continuously. The Colonoscope wasintroduced through the anus and advanced to the cecum, identified by appendicealorifice and ileocecal valve. The colonoscopy was somewhat difficult due to aredundant colon. Successful completion of the procedure was aided by using manual pressureand straightening and shortening the scope to obtain bowel loop reduction. The patienttolerated the procedure well. The quality of the bowel preparation was adequate toidentify polyps 6 mm and larger in size. Findings & Specimens: The examined colon appeared normal. Multiple small and large-mouthed diverticula were found in thesigmoid colon. Internal hemorrhoids were found during retroflexion. The exam was otherwise without abnormality on direct and retroflexionviews. Impression: - The examined colon appeared normal. - Sigmoid diverticulosis. - Internal hemorrhoids. - The examination was otherwise normal on directand retroflexion views. Recommendation: - Discharge to home with an escort. Gissel Coker MD 10/06/2022 3:15:35 PM This report has been signed electronically. Deja HERNANDEZ GASTRO LOWER * UPPER GI ENDOSCOPY (10/06/2022 1:45 PM EDT) 10/06/2022 1:45 PM EDT Procedure Note MARY Angel - 10/06/2022 1:45 PM EDT [facility] Patient Name: Laurel Rios Procedure Date: 10/06/2022 1:45 PM Date of : 1940 Admit Type: Outpatient Note Status:Finalized Date of : 1940 Admit Type: Outpatient Age: 82 Room: Endo 3 Gender: Female Note Status: Finalized Procedure: Upper GI endoscopy Indications: Anemia Providers: Gissel Coker MD (Doctor), Delvin Stout RN,Tc Jarquin CRNA (Anesthesia Staff) Referring MD: Deja Oseguera Medicines: See the Anesthesia note for documentation of theadministered medications Complications: No immediate complications. Procedure: Pre-Anesthesia Assessment: - Patient identification and proposed procedurewere verified prior to the procedure by the physician, the nurse and theanesthesiologist. The procedure was verified in the pre-procedure area. - Prior to the procedure, a History and Physicalwas performed, and patient medications, allergies and sensitivities werereviewed. The patient's tolerance of previous anesthesia was reviewed. - The risks and benefits of the procedure and thesedation options and risks were discussed with the patient. All questions wereanswered and informed consent was obtained. - The medication list for this patient has beenreviewed prior to the procedure and has been determined that the patient may proceed with the plannedstudy. Any medication changes made as a result of the findings of this procedure have beendiscussed with the patient and/or healthcare representative [facility] - After obtaining informed consent, the endoscopewas passed under direct vision. All instruments were visually inspected immediatelybefore and after removal from the patient to ensure they are fully intact. Throughout the procedure, the patient's bloodpressure, pulse, and oxygen saturations were monitored continuously. The Colonoscope wasintroduced through the mouth and advanced to the second part of duodenum. The upperGI endoscopy was accomplished without difficulty. The patient tolerated theprocedure well. Findings & Specimens: The examined esophagus appeared normal. The Z-line appeared regular. Localized mild inflammation characterized by erythema was found inthe stomach. Biopsies were taken with a cold forceps for Helicobacter pylori testing. The pathologyspecimen was placed into Bottle Number 1. Verification of patient identification for the specimen wasdone by the physician and nurse using the patient's name and medical record number. The examinedstomach otherwise appeared normal. The duodenal bulb and second portion of the duodenum appearednormal. Impression: - Normal esophagus. - Z-line regular. - Gastritis. Biopsied. - Normal duodenal bulb and second portion of theduodenum. Recommendation: - Await pathology results. - Proceed to colonoscopy. Gissel Coker MD 10/06/2022 3:15:59 PM This report has been signed electronically. Deja HERNANDEZ GASTRO UPPER documented in this encounter Visit Diagnoses Diagnosis History of colon polyps Personal history of colonic polyps Anemia, unspecified type Iron deficiency anemia, unspecified iron deficiency anemia type documented in this encounter Administered Medications Inactive Administered Medications - up to 3 most recent administrations Medication Order MAR Action Action Date Dose Rate Site isolyte-S pH 7.4 infusion Intravenous, Plasma-LYTE 148, isolyte-S, and isolyte-S pH 7.4 are considered equivalent - including for MAR barcode scanning., CONTINUOUS, Starting on Mahi 10/06/22 at 1430, Until Mon10/06/22 at 2008, Pre-Op documented in this encounter Active and Recently Administered Medications Times are shown in EDT. Continuous Medication Order 10/04/2022 10/05/2022 10/06/2022 isolyte-S pH 7.4 infusion Intravenous, Plasma-LYTE 148, isolyte-S, and isolyte-S pH 7.4 are considered equivalent - including for MAR barcode scanning., CONTINUOUS, Starting on Mahi 10/06/22 at 1430, Until Mahi 10/06/22 at 2007, Pre-Op 1430 (Due)1506 (Anes Intra-Op Fluid - Provider: Tc Jarquin CRNA) documented in this encounter Care Teams Behavioral Psychologist Relationship Specialty Start Date End Date Deja Oseguera CRNP [address] [place] [address] PCP - General Nurse Practitioner 12/24/20 documented as of this encounter
--- OUTSIDE RECORDS SUMMARY | 2022-12-12 21:43 | External Medical Summary | Summary of Care ---
Author Name Unknown Organization [facility] Address [address] [place] [address] Phone [phone] Care Team Providers Care Proposal Consultant Name Role Phone Deja Oseguera Primary Care Provider Reason for Visit * Reason Comments NEW PATIENT Right hip pain Encounter Details Date Type Department Care Team Description 07/15/2022 Office Visit Orthopaedics [facility] [address] [place] [address] SharerDenise PA-C [address] [place] [address] Trochanteric bursitis, right hip* Allergies Active Allergy Reactions Severity Noted Date Comments Prednisone Other (Please comment) 12/22/2016 Urinary incontinence documented as of this encounter (statuses as of 07/15/2022) Medications Medication Sig Dispensed Refills Start Date [...] units Capsule Take by mouth. 0 Active Newell 3 1200 MG CAPS 0 Acti ve [...] 0 Active dilTIAZem HCl (CARDIZEM OINTMENT) 2% IA GEL Administer into the rectum 3 times a day. 30 g 3 01/15/2020 Active Hydrocortisone (Perianal) 2.5 % External Cream (Anusol-HC) [...] as of this encounter (statuses as of 07/15/2022) Active Problems Problem Noted Date Prediabetes 08/08/2017 [...] as of this encounter (statuses as of 07/15/2022) Resolved Problems Problem Noted Date Resolved Date Encounter for examination fo r normal comparison and control in clinical research program 08/28/2017 10/21/2019 Overview: DO NOT DELETE [facility] [place] DETECT Study: Project # [id number], Section Hand Helper: Jace Arrington, PhD. SUMMARY: Goal: Establish test [...] contact study staff at ; after hours Section Hand Helper via the [facility] hydraulic hammer operator . Please contact study team before resolving/deleting from patients problem list. Study phone number: [phone]. Diagnosis changed due to Research Module. Go to Snapshot for study details. Encounter for examination fo r normal comparison and control in clinical research program 08/28/2017 11/18/2021 Overview: DO NOT DELETE - [facility] Study: Project # [id number], Section Hand Helper: Nando Villeda, MS, MPH. SUMMARY: Goal: Establish [...] contact study staff at ; after hours Section Hand Helper via the [facility] hydraulic hammer operator . - Please contact study team before resolving/deleting from patients problem list. Study phone number: [phone]. Diagnosis changed due to Research Module. Go to [employer] for study details. Sciatica without lumbago 03/31/2016 [...] as of this encounter (statuses as of 07/15/2022) Immunizations Name Administration Dates Next Due PPD [...] on file documented as of this encounter Progress Notes * Denise Westfall PA-C - 07/15/2022 12:01 PM EDT Laurel Rios is a 82 year old female who presents for consultation to [facility] right hip pain. Consult requested by Self. Laurel Rios is here unaccompanied History: Patient reports right hip pain started 4 weeks ago. States she stuck her hip on the corner of furniture. Reports pain along lateral hip. Pain worsens with walking. She was seen by Dr Curry 3 days ago who performed a greater trochanteric bursa injection. Reports no relief. She denies any groin pain. Review of systems: All others negative except those noted above in HPI. Review of patient's allergies indicates: Allergen Reactions • Prednisone Other (Please comment) Urinary incontinence Current Outpatient Medications Medication Sig Dispense Refill • STOOL SOFTENER 100 MG PO TABS Take by mouth. • RED YEAST RICE 600 MG PO CAPS 1 daily • PROGESTERONE 1000 MG/60GM EX CREA Apply topically to affected area. • cycloSPORINE 0.05 % Ophthalmic Emulsion Instill 1 Drop into both eyes in the morning and 1 Dropbefore bedtime. affected eye(s). 32 Vial 11 • PARoxetine (PAXIL) 30 MG Tablet Take 1 Tab by mouth daily. 90 Tab 3 • diazepam (VALIUM) 5 MG Tablet TAKE 1/2 TO ONE TABLET UP TO TWICE A DAY NEEDED FOR MUSCLE SPASM 180 Tab 1 • Polyethylene Glycol 3350 17 GM/SCOOP Oral Powder Take 17 g by mouth in the morning and 17 g before bedtime. Dissolve one heaping tablespoon in 8 ounces of water or juice.. 1 Bottle 2 • gabapentin (NEURONTIN) 100 MG Capsule 2 Capsules. Take 3 times a day 1 Cap 0 • tiZANidine (ZANAFLEX) 4 MG Tablet Take 0.5 Tablets by mouth. 1 Tab 0 • DULoxetine (CYMBALTA) 20 MG CPEP 30 mg. • dicyclomine (BENTYL) 10 MG Capsule Take 1 Cap by mouth 4 times a day as needed for Cramping. For abdominal pain 120 Cap 5 • Cholecalciferol (VITAMIN D-3) 1000 units Capsule Take by mouth. • Newell 3 1200 MG CAPS • Biotin 1 MG Capsule • Ascorbic Acid (VITAMIN C) 1000 MG Tablet Take 1 Tablet by mouth in the morning. • fluticasone (FLONASE) 50 MCG/ACT nasal spray Administer 2 Sprays into each nostril daily. 1 Inhaler 5 • MEDICAL INSTRUCTIONS Use as directed. Bi-Est estrogen cream --apply cream to arm every other day • Acetaminophen 500 MG Oral Tablet Take 1 Tablet by mouth every 6 hours as needed for Pain. • valsartan (DIOVAN) 80 MG Tablet Take 1 Tab by mouth daily. 90 Tab 1 • Cyanocobalamin (VITAMIN B 12) 500 MCG TABS Take by mouth. • glycopyrrolate (ROBINUL) 1 MG Tablet Take 1 Tablet by mouth in the morning and 1 Tablet at noonand 1 Tablet before bedtime. • Witch Sheryl-Glycerin External Pad Apply topically to affected area as needed . • dilTIAZem HCl (CARDIZEM OINTMENT) 2% IA GEL Administer into the rectum 3 times a day. 30 g 3 • Hydrocortisone (Perianal) 2.5 % External Cream (Anusol-HC) Administer into the rectum 2 times aday. 30 g 3 • Aspirin 325 MG Oral Tablet Delayed Release Take 1 Tablet by mouth in the morning and 1 Tablet at noon and 1 Tablet before bedtime. Patient takes OTC for pain. • traMADol HCl 50 MG Oral Tablet (Ultram) • Aspirin-Caffeine 500-32.5 MG Oral Tablet Take by mouth . • Donepezil HCl 10 MG Oral Tablet Take 1 Tablet by mouth in the morning. Take with largest meal of the day.. No current facility-administered medications for this visit. Past Medical History: Diagnosis Date • Benign hypertension with CKD (chronic kidney disease) stage III ([facility]) 01/18/2017 • Cervicalgia due to muscle spasms • Depressive disorder, not elsewhere classified • Dermatochalasis both eyes • Disorder of bone and cartilage osteopenia • Dyslipidemia, goal LDL below 130 [address] in place of statin • Generalized anxiety disorder • HTN, goal below 140/90 01/18/2017 • Hypothyroidism • Irritable bowel syndrome IBS-C • LVH (left ventricular hypertrophy) due to hypertensive disease, without heart failure 01/18/2017 • Myalgia and myositis • Posttraumatic stress disorder sees Psychologist • Spasm of muscle sees chiropractor, used to get trigger point injections • Vitamin D deficiency Patient Active Problem List Diagnosis Code • Hypothyroidism E03.9 • Depression F32.A • GENERALIZED ANXIETY DIS F41.1 • Irritable bowel syndrome K58.9 • Dyslipidemia, goal LDL below 130 E78.5 BONE & CARTILAGE DIS NOS - Osteopenia M89.9, M94.9 • Posttraumatic stress disorder F43.10 • Vitamin D deficiency E55.9 • Hx of nonmelanoma skin cancer Z85.828 • HTN, goal below 140/90 I10 • Benign hypertension with CKD (chronic kidney disease) stage III ([facility]) I12.9, N18.30 • LVH (left ventricular hypertrophy) due to hypertensive disease, without heart failure I11.9 • Prediabetes R73.03 Past Surgical History: Procedure Laterality Date • BIOPSY OF BREAST, OPEN 1991 Breast Biopsy, Benign Disease • COLONOSCOPY, DIAGNOSTIC (RECTUM) 12/29/2016 adenomatous polyp, repeat 5 yrs/COLONOSCOPY FLEXIBLE PROXIMAL DIAGNOSTIC performed by Ruslan Kelly MD at [facility] • GENITAL SURGERY PROCEDURE NEC 1982 at age 42, 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 • INJECT DX/THER SUBSTANCE INTERLAMINAR CERVICAL/THORACIC W IMAGE GUIDE 02/08/2021 INJECTION SPINE LUMBAR CERVICAL OR THORACIC performed by Ryder Curry, DO at [facility] • INJECT DX/THER SUBSTANCE INTERLAMINAR LUMBAR/SACRAL W IMAGE GUIDE 09/17/2020 INJECTION SPINE LUMBAR OR SACRAL performed by Ryder Curry, DO at [facility] • INJECT DX/THER SUBSTANCE INTERLAMINAR LUMBAR/SACRAL W IMAGE GUIDE 12/24/2020 INJECTION SPINE LUMBAR OR SACRAL performed by Ryder Curry, DO at [facility] • INJECT DX/THER SUBSTANCE INTERLAMINAR LUMBAR/SACRAL W IMAGE GUIDE 04/29/2021 INJECTION SPINE LUMBAR OR SACRAL performed by Ryder Curry, DO at [facility] • INJECT DX/THER SUBSTANCE INTERLAMINAR LUMBAR/SACRAL W IMAGE GUIDE 08/04/2021 INJECTION SPINE LUMBAR OR SACRAL performed by Ryder Curry, DO at [facility] • INJECT DX/THER SUBSTANCE INTERLAMINAR LUMBAR/SACRAL W IMAGE GUIDE 12/08/2021 INJECTION SPINE LUMBAR OR SACRAL performed by Ryder Curry, DO at [facility] • INJECT DX/THER SUBSTANCE INTERLAMINAR LUMBAR/SACRAL W IMAGE GUIDE 06/01/2022 INJECTION SPINE LUMBAR OR SACRAL performed by Ryder Curry, DO at [facility] • LAPAROSCOPY; CHOLECYSTECTOMY 1991 Cholecystectomy, Laproscopic • REVISE UPPER EYELID 06/10/2010 both eyes upper lid blepharoplasties, Dr. 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: [employer] Tobacco Use • Smoking status: Former Types: Cigarettes Quit date: 03/19/1988 Years since quittin.3 • Smokeless tobacco: Never • Tobacco comments: quit 1987 Substance and Sexual Activity • Alcohol use: No • Drug use: No • Sexual activity: Yes Partners: Male control/protection: Surgical Other Topics Concern • Not on file Social History Narrative • Not on file Social Determinants of Health Financial Resource Strain: Not on file Food Insecurity: Not on file Transportation Needs: Not on file Physical Activity: Not on file Stress: Not on file Social Connections: Not on file Intimate Partner Violence: Not on file Housing Stability: Not on file Family History Problem Relation Age of Onset • Cancer Sister breast cancer at age 42; now with bone and lung cancer, ?mets • Heart Disorder Mother of CHF • Hypertension Mother • Eye Problems Mother glaucoma, blind from trauma-?RD • Mental Disorder Father alcoholism • Cancer Father at age 71 of prostate ca • Hypertension Father • Eye Problems Sister legally blind secondary to histoplasmosis • Mental Disorder Sister narcotic addiction • Eye Problems Sister hystoplamosis of the optic nerve, OU Family History; none relevant to today's HPI Objective: Physical Exam There were no vitals filed for this visit. Estimated body mass index is 26.09 kg/m² as calculated from the following: Height as of 02/12/20: 1.626 m (5' 4"). Weight as of 07/14/22: 68.9 kg (152 lb). General: generally well-nourished and in no acute distress HEENT: normocephalic, atraumatic, sclera anicteric. Psych: mood and affect normal , cooperative Card: Peripheral pulses: normal in affected extremity (s) Resp: equal chest rise, non-tachypneic, non-labored breathing Skin: no rash, normal Neuro: Sensation: normal on affected extremity (s) MSK: Gait/station/stance: normal reciprocal gait, non antalgic without an assistive device on smooth flat indoor surface. Hip Exam Inspection: No obvious deformity, no redness, swelling, warmth, bruising, abrasion. Palpation: Tenderness to palpation greater trochanter. ROM: normal and symmetric in actively flexion, extension, internal and external rotation Strength: Abduction: R - 5/5 L - 5/5 Internal Rotation: R - 5/5 L - 5/5 Quads: R - 5/5 L - 5/5 Hams: R - 5/5 L - 5/5 Adduction: R - 5/5 L - 5/5 Special Tests: Log Roll: negative Bilateral DESIREE: positive with reproducable pain Right FADIR: negative Bilateral. Radiology (I have personally reviewed the following films): X-ray of the right hip 06/23/2022 shows degenerative changes but no acute fracture - per my interpretation. Assessment and Plan: Trochanteric bursitis, right hip (Primary) Recommend trial of physical therapy but patient declined. Provided her with greater trochanter HEP.Advised She follow up with Dr Curry in 6 weeks if symptoms persist. The above assessment and planwere discussed at length. All questions were answered, and the patient expressed understanding. Denise Westfall PA-C [facility] documented in this encounter Nursing Notes * JAMEE Wheeler - 07/15/2022 11:45 AM EDT Patient presents today to walk in clinic for ongoing right hip pain. Had injection yesterday with Dr. Curry for SI joint but no relief of hip pain. documented in this encounter Plan of Treatment Upcoming Encounters Date Type Specialty Care Team Description 08/16/2022 Office Visit Dermatology Jayson Holliday MD [address] [place] [address], [place] [address] 11/04/2022 Office Visit Orthopedics Claude Diaz MD [address] [place] [address] Scheduled Procedures Name Priority Associated Diagnoses Date/Ti me COLONOSCOPY FLEXIBLE PROXIMAL DIAGNOSTIC Recall History of colon polyps Health Maintenance Due Date Last Done Comments Zoster Vaccines (2 of 3) 05/15/2007 03/20/2007 Albumin/Creatinine Ratio 01/18/2018 01/18/2017 GFR - Renal Function 03/02/2018 08/31/2017, 07/29/2017, 11/14/2016, Additional history exists CKD HGB USE SMARTSET 00461 07/29/201807/29, 03/31/2016, 08/05/2015, Additional history exists CKD PHOS USE SMARTSET 60033 07/29/201807/18, 03/31/2016, 08/06/2014 Depression Screening, Annual for Pts 12 and Over 08/11/2018 08/11/2017 HgA1C 08/24/2018 08/24/2017 DXA Scan 03/15/2019 03/15/2012 COVID-19 Vaccine (3 - Booster for Pfizer series) 11/26/2021 10/01/2021, 05/15/2020, 04/24/2020 DTaP,Tdap,and Td Vaccines (2 - Td or Tdap) 12/19/2021 12/20/2011 COLONOSCOPY-EVERY 5 YRS AGES 18-100 12/29/2021 12/29/2016, 12/29/2016 Influenza Vaccine (FLU shot) (Season Ended) 2022 12/16/2019, 12/21/2018, 12/21/2017, Additional history exists Pneumococcal Vaccine: 65+ Years [...] as of this encounter Visit Diagnoses Diagnosis Trochanteric bursitis, right hip- Primary documented in this encounter Care Teams Proposal Consultant Relationship Specialty Start Date End Date Deja Oseguera CRNP [address] [place] [id number] PCP - General Nurse Practitioner 12/24/20 documented as of this encounter
--- OUTSIDE RECORDS SUMMARY | 2022-12-12 21:43 | External Medical Summary | Summary of Care ---
Author Name Unknown Organization [facility] Address [address] [facility] [place] [address] Phone [phone] Care Team Providers Care Marine Gear Keeper Name Role Phone Deja Oseguera Primary Care Provider Reason for Visit * Reason Onset Date Comments Appointment 09/26/2022 Encounter Details Date Type Department Care Team Description 09/26/2022 Telephone Gastroenterology, [facility] [address] [place] [address] Olivia Mcgrath CRNP [address] [place] [address] Appointment Allergies Active Allergy Reactions Severity Noted Date Comments Prednisone Other (Please comment) 12/22/2016 Urinary incontinence documented as of this encounter (statuses as of 09/26/2022) Medications Medication Sig Dispensed Refills Start Date [...] units Capsule Take by mouth. 0 Active [place] 3 1200 MG CAPS 0 Acti ve [...] 0 Active dilTIAZem HCl (CARDIZEM OINTMENT) 2% ND GEL Administer into the rectum 3 times [...] as of this encounter (statuses as of 09/26/2022) Active Problems Problem Noted Date Prediabetes 08/08/2017 [...] as of this encounter (statuses as of 09/26/2022) Resolved Problems Problem Noted Date Resolved Date Encounter for examination fo r normal comparison and control in clinical research program 08/28/2017 10/21/2019 Overview: DO NOT DELETE [facility] DETECT Study: Project # [id number], Mold Runner: Jace Arrington, PhD. SUMMARY: Goal: Establish test [...] contact study staff at ; after hours Mold Runner via the [facility] hospital pantograph machine set up operator . Please contact study team before resolving/deleting from patients problem list. Study phone number: [phone]. Diagnosis changed due to Research Module. Go to Snapshot for study details. Encounter for examination fo r normal comparison and control in clinical research program 08/28/2017 11/18/2021 Overview: DO NOT DELETE - [facility] DETECT Study: Project # [id number], Mold Runner: Nando Villeda, MS, MPH. SUMMARY: Goal: Establish [...] contact study staff at ; after hours Mold Runner via the [facility] pantograph machine set up operator . - Please contact study team before resolving/deleting from patients problem list. Study phone number: [phone]. Diagnosis changed due to Research Module. Go [...] as of this encounter (statuses as of 09/26/2022) Immunizations Name Administration Dates Next Due PPD [...] encounter Miscellaneous Notes * Telephone Encounter - MARY Jimenes - 09/26/2022 10:59 AM EDT Pt seen at [facility] for anemia wo gross GI bleeding. Pls arrange outpt EGD and colonoscopy appts MARY Bishop documented in this encounter Plan of Treatment Upcoming Encounters Date Type Specialty Care Team Description 10/26/2022 Office Visit Family Medicine Ly Tavarez DO [address] [place] [address] 11/04/2022 Office Visit Orthopedics Claude Diaz MD [address] [place] [address] Scheduled Orders Name Type Priority Associated Diagnoses [...] Ratio 01/18/2018 01/18/2017 CKD PHOS USE SMARTSET 26479 07/29/201807/18, 03/31/2016, 08/06/2014 Depression Screening, Annual for [...] Additional history exists CKD HGB USE SMARTSET 15378 08/04/202308/03, 07/29/2017, 03/31/2016, Additional history exists Pneumococcal [...] type documented in this encounter Care Teams Marine Gear Keeper Relationship Specialty Start Date End Date Deja Oseguera CRNP [address] [place] [address] PCP - General Nurse Practitioner 12/24/20 documented as of this encounter
--- OUTSIDE RECORDS SUMMARY | 2022-12-12 21:43 | External Medical Summary | Summary of Care ---
Author Name Unknown Organization [facility] Address [address] [facility] [address] Phone [phone] Care Team Providers Care Referral Management Liaison Name Role Phone Deja Oseguera Primary Care Provider Reason for Visit * Auth/Cert Specialty Diagnoses / Procedures Referred By Yonny t Referred To Contact Diagnoses Lumbar radiculopathy Lumbar radiculopathy [M54.16] Procedures INJECT DX/THER SUBSTANCE INTERLAMINAR LUMBAR/SACRAL W IMAGE GUIDE INJECTION SPINE LUMBAR OR SACRAL Referral ID Status Reason Start Date Expiration Date Visits Re quested Visits Authorized [id number] Encounter Details Date Type Department Care Team Description 09/14/2022 Hospital Encounter OR [facility], Operating Room [facility] [address] [place] [address] Ryder Curry DO [address] [place] [address] Allergies Active Allergy Reactions Severity Noted Date Comments Prednisone Other (Please comment) 12/22/2016 Urinary incontinence documented as of this encounter (statuses as of 09/15/2022) Medications Medication Sig Dispensed Refills Start Date [...] units Capsule Take by mouth. 0 Active [place] 3 1200 MG CAPS 0 Acti ve [...] 0 Active dilTIAZem HCl (CARDIZEM OINTMENT) 2% CA GEL Administer into the rectum 3 times [...] as of this encounter (statuses as of 09/15/2022) Active Problems Problem Noted Date Prediabetes 08/08/2017 [...] as of this encounter (statuses as of 09/15/2022) Resolved Problems Problem Noted Date Resolved Date Encounter for examination fo r normal comparison and control in clinical research program 08/28/2017 10/21/2019 Overview: DO NOT DELETE [facility] Study: Project # [id number], Supervisor Carding: Jace Arrington, PhD. SUMMARY: Goal: Establish test [...] contact study staff at ; after hours Supervisor Carding via the [facility] enamel machine operator . Please contact study team before resolving/deleting from patients problem list. Study phone number: [phone]. Diagnosis changed due to Research Module. Go to Snapshot for study details. Encounter for examination fo r normal comparison and control in clinical research program 08/28/2017 11/18/2021 Overview: DO NOT DELETE - [facility] DETECT Study: Project # [id number], Supervisor Carding: Nando Villeda, MS, MPH. SUMMARY: Goal: Establish [...] contact study staff at ; after hours Supervisor Carding via the [facility] enamel machine operator . - Please contact study team before resolving/deleting from patients problem list. Study phone number: [phone]. Diagnosis changed due to Research Module. Go [...] as of this encounter (statuses as of 09/15/2022) Immunizations Name Administration Dates Next Due PPD [...] Sign Reading Time Taken Comments Blood Pressure 137/60 09/14/2022 1:07 PM EDT Pulse 92 09/14/2022 1:07 PM EDT Temperature 37.2 °C (99 °F) 09/14/2022 12:40 PM EDT Respiratory Rate 16 09/14/2022 1:07 PM EDT Oxygen Saturation 97% 09/14/2022 1:07 PM EDT Inhaled Oxygen Concentration - - Weight - - Height - - Body Mass Index - - documented in this encounter Discharge Instructions * Discharge Instr - AVS* Ryder Curry DO - 09/14/2022 1:00 PM EDT [facility] [address] [place] [address] Discharge Date: 09/14/2022 You may call [facility] at [phone] during business hours. For after-hours emergencies call 911. Your attending physician at the time of your discharge was: Ryder Curry DO [address] [place] [address] The information below provides you with the instructions and the list of medications you need to betaking following discharge from the hospital. If you have any questions, please ask before leaving.Please carry this letter with you when you see your doctor in the clinic. Diet: Resume your normal diet If you are diabetic, follow your blood sugars closely for next 2-3 days as they are likely to be elevated. If you are having difficulty controlling your blood sugars call your family doctor or the physician that treats your diabetes. Activity: Do not engage in strenuous activity today Resume your normal activities tomorrow Do not soak in water for 24 hours. No swimming, hot tub or bath but showering is allowed. Do not use heat on the injection site for 24 hours. If uncomfortable ice may be helpful. Some injections may make your arms or legs weak for a few hours. Be extremely careful when walking or changing positions that you do not fall. Have someone assist you for the next 6 hours. If weakness or numbness becomes progressive CALL IMMEDIATELY or GO TO THE NEAREST EMERGENCY ROOM Keep a diary of your pain until seen in the office to help us determine how effective the injectionwas Do not restart physical therapy or chiropractic manipulation until 48 hours after your injection Call : If weakness or numbness suddenly becomes worse or become progressive If the injection site becomes red, swollen, warm to the touch, begins to bleed or drain fluid, or is excessively painful. If you have any questions Medications: Resume all the medications you were taking prior to your injection. Resume your anticoagulants tomorrow unless otherwise instructed by your family physician, ticket manager or the anticoagulation clinic. Additional Instructions: Driving: . Date you may return to work or school: Follow Up: Call [phone] in 4 weeks. documented in this encounter Progress Notes * Ryder Curry DO - 09/14/2022 1:00 PM EDT [facility] [address] [address] OUTPATIENT SURGERY DISCHARGE SUMMARY NOTE Name: Laurel Rios Location: OR [facility]/OR Date: 09/14/2022 Time: 1:00 PM Surgery Date: 09/14/2022 Procedure: Procedure(s): INJECTION SPINE LUMBAR OR SACRAL No laterality found for procedure #1 Surgeon: Surgeon(s): Ryder Curry DO Discharge Diagnosis: Lumbar radicular pain After examination of this patient, I have determined she is ready for discharge to home when the patient meets criteria. Discharge instructions were given to the patient. documented in this encounter H&P Notes * Ryder Curry DO - 09/14/2022 6:55 AM EDT Interventional Pain Pre-Procedure Assessment Name:Laurel Rios Date:09/14/2022 Time:6:55 AM Procedure(s): · Caudal epidural steroid injection Diagnosis: Lumbar radicular pain Pre-Procedure Assessment: Prior to the procedure, the patient was identified. The patient's history, medications and allergies were reviewed . The patient is competent. The risks and benefits of the proposed procedure and theplanned sedation were discussed with the patient. All questions were answered and informed consent for the procedure was obtained. Prior to Admission medications Medication Sig Last Dose Discont. Donepezil HCl 10 MG Oral Tablet Take 1 Tablet by mouth in the morning. Take with largest meal of the day.. Aspirin-Caffeine 500-32.5 MG Oral Tablet Take by mouth . traMADol HCl 50 MG Oral Tablet (Ultram) Aspirin 325 MG Oral Tablet Delayed Release Take 1 Tablet by mouth in the morning and 1 Tablet at noon and 1 Tablet before bedtime. Patient takes OTC for pain. dilTIAZem HCl (CARDIZEM OINTMENT) 2% CA GEL Administer into the rectum 3 times a day. Hydrocortisone (Perianal) 2.5 % External Cream (Anusol-HC) Administer into the rectum 2 times a day. Witch Sheryl-Glycerin External Pad Apply topically to affected area as needed . Cyanocobalamin (VITAMIN B 12) 500 MCG TABS Take by mouth. glycopyrrolate (ROBINUL) 1 MG Tablet Take 1 Tablet by mouth in the morning and 1 Tablet at noon and1 Tablet before bedtime. valsartan (DIOVAN) 80 MG Tablet Take 1 Tab by mouth daily. Acetaminophen 500 MG Oral Tablet Take 1 Tablet by mouth every 6 hours as needed for Pain. MEDICAL INSTRUCTIONS Use as directed. Bi-Est estrogen cream --apply cream to arm every other day fluticasone (FLONASE) 50 MCG/ACT nasal spray Administer 2 Sprays into each nostril daily. Ascorbic Acid (VITAMIN C) 1000 MG Tablet Take 1 Tablet by mouth in the morning. Biotin 1 MG Capsule Cholecalciferol (VITAMIN D-3) 1000 units Capsule Take by mouth. [place] 3 1200 MG CAPS dicyclomine (BENTYL) 10 MG Capsule Take 1 Cap by mouth 4 times a day as needed for Cramping. For abdominal pain DULoxetine (CYMBALTA) 20 MG CPEP 30 mg. gabapentin (NEURONTIN) 100 MG Capsule 2 Capsules. Take 3 times a day tiZANidine (ZANAFLEX) 4 MG Tablet Take 0.5 Tablets by mouth. Polyethylene Glycol 3350 17 GM/SCOOP Oral Powder Take 17 g by mouth in the morning and 17 g before bedtime. Dissolve one heaping tablespoon in 8 ounces of water or juice.. cycloSPORINE 0.05 % Ophthalmic Emulsion Instill 1 Drop into both eyes in the morning and 1 Drop before bedtime. affected eye(s). diazepam (VALIUM) 5 MG Tablet TAKE 1/2 TO ONE TABLET UP TO TWICE A DAY NEEDED FOR MUSCLE SPASM PARoxetine (PAXIL) 30 MG Tablet Take 1 Tab by mouth daily. PROGESTERONE 1000 MG/60GM EX CREA Apply topically to affected area. RED YEAST RICE 600 MG PO CAPS 1 daily STOOL SOFTENER 100 MG PO TABS Take by mouth. Review of patient's allergies indicates: Allergen Reactions • Prednisone Other (Please comment) Urinary incontinence There were no vitals taken for this visit. Physical Exam: Mental Status Examination: alert and oriented. Airway Examination: normal oropharyngeal airway and neck mobility. Respiratory Examination: clear to auscultation. CV Examination: normal. ASA Grade: II - A patient with mild systemic disease. After reviewing the risks and benefits, the patient was deemed in satisfactory condition to undergothe procedure. The anesthesia plan was to use local anesthesia. Ryder Curry DO 09/14/2022 documented in this encounter Nursing Notes * Adrienne Bowers RN - 09/14/2022 1:40 PM EDT After talking with patient, [facility] Police fels she is safe to be discharged to home and will transport patient. Patient in agreement. Patient has discharge instructions and all belongings. Escorted out of building by [facility]ai Mustafa and [facility] Merchandise Executive. * Adrienne Bowers RN - 09/14/2022 1:20 PM EDT At time of arrival patient made comments to patient registration that she may throw herself of the roof of the building where she lives. [facility] Rucker notified and advised to call [facility] Police. [facility] police called and in room with patient at this time. * Brenda Crowe RN - 09/14/2022 12:54 PM EDT Patient tolerating procedure without complications. documented in this encounter OR Notes * OR Surgeon - Ryder Curry DO - 09/14/2022 1:00 PM EDT OPERATIVE RECORD OR [facility], Operating Room [address] [address] Laurel Rios : 1940 DOS: 09/14/2022 SERVICE: INTERVENTIONAL PAIN MANAGEMENT PRE-OP DIAGNOSIS: Lumbar radicular pain. POST-OP DIAGNOSIS: Same. SURGEON: Ryder Curry DO. ASSISTANTS: None. ANESTHESIA: 2 cubic centimeters of 1% lidocaine. OPERATION: Caudal epidural steroid injection. FINDINGS: No intraoperative findings. ESTIMATED BLOOD LOSS: None. DRAINS: There were no drains placed. FLUIDS: No IV fluids. URINE OUTPUT: None. SPECIMEN: No specimens collected. COMPLICATIONS: None. CONDITION: Good. INDICATIONS AND HISTORY: Laurel Rios presents in anticipation of undergoing epidural steroid injection for persistent low back and lower extremity radicular pain refractory to conservative treatment. The injection procedure was reviewed, as well as the risks of bleeding, infection, headache, n erve or spinal cord injury, worsening pain, or steroid side effects. DESCRIPTION OF OPERATION: After obtaining appropriate informed consent, Laurel Rios was takento the fluoroscopy suite, placed in a prone position. Time- out was taken to properly identify the patient and procedure, and the sacral hiatus was identified and the overlying skin sterilely prepped with ChloraPrep and draped. 1% lidocaine, 2 cubic centimeters, was infiltrated in skin and subcutaneous tissue and a #25 gauge, 3-1/2 inch spinal needle was directed with fluoroscopic guidance through the sacral hiatus, into the sacral canal without pain or paresthesia. After negative aspiration for blood or cerebrospinal fluid, Omnipaque 180, 0.5 cubic centimeter was easily injected, showed appropriate epidural spread in P-A and lateral fluoroscopic views. There was no evidence of intravascular or subarachnoid spread of contrast. Kenalog 40 mg with 5 cubic centimeters of preservative-free normal saline was slowly and easily injected without pain. There was appropriate washout of contrast. The needle was removed. Patient tolerated procedure well. Laurel Rios will be re-evaluated by pillo goncalves in approximately 4 weeks, and was given appropriate discharge instructions following postprocedure monitoring. Ryder Curry DO 09/14/2022 1:00 PM documented in this encounter Plan of Treatment Upcoming Encounters Date Type Specialty Care Team Description 11/04/2022 Office Visit Orthopedics Claude Diaz MD [address] [place] [address] Scheduled Procedures Name Priority Associated Diagnoses Date/Ti me COLONOSCOPY FLEXIBLE PROXIMAL DIAGNOSTIC Recall History of colon polyps Health Maintenance Due Date Last Done Comments Albumin/Creatinine Ratio 01/18/2018 01/18/2017 CKD PHOS USE SMARTSET 80779 07/29/201807/18, 03/31/2016, 08/06/2014 Depression Screening, Annual for [...] Additional history exists CKD HGB USE SMARTSET 91285 08/04/202308/03, 07/29/2017, 03/31/2016, Additional history exists Pneumococcal [...] Procedure Name Priority Date/Time Associated Diagnosis Comments FLUORO INTERVENTIONAL PAIN PROCEDURE NONBILLABLE Routine 09/14/2022 1:01 PM EDT documented in this encounter Results * FLUORO INTERVENTIONAL PAIN PROCEDURE NONBILLABLE (09/14/2022 1:01 PM EDT) Narrative Scheduling, Silent - 09/14/2022 1:02 PM EDT This procedure will not be read by a Radiologist. Please see operative note. Ryder Curry DO RAD FLUOROSCOPY documented in this encounter Administered Medications Inactive Administered Medications - up to 3 most recent administrations Medication Order MAR Action Action Date Dose Rate Site Iohexol (Omnipaque 180) inj 0.5 mL 0.5 mL, Injection, ONCE, On Mon09/14/22 at 1315, For 1 dose, Intra-Op Given 09/14/2022 12:54 PM EDT 0.5 mL lidocaine 1 % inj 20 mg 20 mg (2 mL), Subcutaneous, ONCE, On Mon09/14/22 at 1315, For 1 dose, Intra-Op Given 09/14/2022 12:53 PM EDT 20 mg Other-Specify Triamcinolone Acetonide (Kenalog) 40 MG/ML inj 40 mg 40 mg, Injection, ONCE, On Mon09/14/22 at 1315, For 1 dose, Intra-Op Given 09/14/2022 12:54 PM EDT 40 mg documented in this encounter Active and Recently Administered Medications Times are shown in EDT. Scheduled Medication Order 09/12/2022 09/13/2022 09/14/2022 Iohexol (Omnipaque 180) inj 0.5 mL (COMPLETED) 0.5 mL, Injection, ONCE, On Mon09/14/22 at 1315, For 1 dose, Intra-Op 1254 (Given - Provid er: Brenda Crowe RN) lidocaine 1 % inj 20 mg (COMPLETED) 20 mg (2 mL), Subcutaneous, ONCE, On Mon09/14/22 at 1315, For 1 dose, Intra-Op 1253 (Given - Provid er: Brenda Crowe RN) Triamcinolone Acetonide (Kenalog) 40 MG/ML inj 40 mg (COMPLETED) 40 mg, Injection, ONCE, On Mon09/14/22 at 1315, For 1 dose, Intra-Op 1254 (Given - Provid er: Brenda Crowe RN) documented in this encounter Care Teams Referral Management Liaison Relationship Specialty Start Date End Date Deja Oseguera CRNP [address] [place] [address] PCP - General Nurse Practitioner 12/24/20 documented as of this encounter
--- OUTSIDE RECORDS SUMMARY | 2022-12-12 21:43 | External Medical Summary | Summary of Care ---
Author Name Unknown Organization [facility] Address [address] [place] [address] Phone [phone] Care Team Providers Care Label Operator Name Role Phone Deja Oseguera Primary Care Provider Encounter Details Date Type Department Care Team Description 06/17/2021 Hospital Encounter Radiology Film File [address] [place] [address] Allergies Active Allergy Reactions Severity Noted Date Comments Prednisone Other (Please comment) 12/22/2016 Urinary incontinence documented as of this encounter (statuses as of 07/14/2022) Medications Medication Sig Dispensed Refills Start Date [...] units Capsule Take by mouth. 0 Active [place] 3 1200 MG CAPS 0 Acti ve [...] 0 Active dilTIAZem HCl (CARDIZEM OINTMENT) 2% [place] GEL Administer into the rectum 3 times [...] Oral Tablet (Ultram) 0 03/15/2021 Acti ve documented as of this encounter (statuses as of 07/14/2022) Active Problems Problem Noted Date Prediabetes 08/08/2017 [...] as of this encounter (statuses as of 07/14/2022) Resolved Problems Problem Noted Date Resolved Date Encounter for examination fo r normal comparison and control in clinical research program 08/28/2017 10/21/2019 Overview: DO NOT DELETE [facility] DETECT Study: Project # [id number], Global Implementation Manager: Jace Arrington, PhD. SUMMARY: Goal: Establish [...] contact study staff at ; after hours Global Implementation Manager via the [facility] seaming machine operator . Please contact study team before resolving/deleting from patients problem list. Study phone number: [phone]. Diagnosis changed due to Research Module. Go to Snapshot for study details. Encounter for examination fo r normal comparison and control in clinical research program 08/28/2017 11/18/2021 Overview: DO NOT DELETE - [facility] DETECT Study: Project # [id number], Global Implementation Manager: Nando Villeda, MS, MPH. SUMMARY: Goal: [...] contact study staff at ; after hours Global Implementation Manager via the [facility] seaming machine operator . - Please contact study team before resolving/deleting from patients problem list. Study phone number: [phone]. Diagnosis changed due to Research Module. Go [...] as of this encounter (statuses as of 07/14/2022) Immunizations Name Administration Dates Next Due PPD [...] on file documented as of this encounter Plan of Treatment Upcoming Encounters Date Type Specialty Care Team Description 07/14/2022 Office Visit Dermatology Jyason Holliday MD [address] [facility] [place] [address] 08/16/2022 Office Visit Dermatology Jayson Holliday MD [address] [facility] [place] [address] Scheduled Procedures Name Priority Associated Diagnoses Date/Ti me COLONOSCOPY FLEXIBLE PROXIMAL DIAGNOSTIC Recall History of colon polyps Health Maintenance Due Date Last Done Comments Zoster Vaccines (2 of 3) 05/15/2007 03/20/2007 Albumin/Creatinine Ratio 01/18/2018 01/18/2017 GFR - Renal Function 03/02/2018 08/31/2017, 07/29/2017, 11/14/2016, Additional history exists CKD HGB USE SMARTSET 19802 07/29/201807/29, 03/31/2016, 08/05/2015, Additional history exists CKD PHOS USE SMARTSET 51599 07/29/201807/18, 03/31/2016, 08/06/2014 Depression Screening, Annual for [...] Procedure Name Priority Date/Time Associated Diagnosis Comments RADIOLOGY EXAM - MRI (IMAGES ONLY, NO REPORT) Routine 06/17/2021 1:10 PM EDT documented in this encounter Results * RADIOLOGY EXAM - MRI (IMAGES ONLY, NO REPORT) (06/17/2021 1:10 PM EDT) 06/17/2021 1:10 PM EDT Narrative Scheduling, Silent - 07/14/2022 12:19 AM EDT This is an imaging study not interpreted or resulted by a [facility] or [facility] contracted radiologist. Ryder Curry DO RAD MRI-MRA documented in this encounter Care Teams Label Operator Relationship Specialty Start Date End Date Deja Oseguera CRNP [address] [place] [address] PCP - General Nurse Practitioner 12/24/20 documented as of this encounter
--- OUTSIDE RECORDS SUMMARY | 2022-12-12 21:43 | External Medical Summary | Summary of Care ---
Author Name Unknown Organization [facility] Address [address] [facility] [place] [address] Phone [phone] Care Team Providers Care Joy Operator Helper Name Role Phone Deja Oseguera Primary Care Provider Reason for Visit * Reason Onset Date Comments Appointment 09/26/2022 Encounter Details Date Type Department Care Team Description 09/26/2022 Telephone Gastroenterology, [facility] [address] [place] [address] Olivia Mcgrath CRNP [address] [place] [address] Appointment Allergies Active Allergy Reactions Severity Noted Date Comments Prednisone Other (Please comment) 12/22/2016 Urinary incontinence documented as of this encounter (statuses as of 09/28/2022) Medications Medication Sig Dispensed Refills Start Date [...] units Capsule Take by mouth. 0 Active [place] 3 1200 MG CAPS 0 Acti ve [...] as of this encounter (statuses as of 09/28/2022) Active Problems Problem Noted Date Prediabetes 08/08/2017 [...] as of this encounter (statuses as of 09/28/2022) Resolved Problems Problem Noted Date Resolved Date Encounter for examination fo r normal comparison and control in clinical research program 08/28/2017 10/21/2019 Overview: DO NOT DELETE [facility] DETECT Study: Project # [id number], Awning Erector: Jace Arrington, PhD. SUMMARY: Goal: Establish test [...] contact study staff at ; after hours Awning Erector via the [facility] building operator . Please contact study team before resolving/deleting from patients problem list. Study phone number: [phone]. Diagnosis changed due to Research Module. Go to Snapshot for study details. Encounter for examination fo r normal comparison and control in clinical research program 08/28/2017 11/18/2021 Overview: DO NOT DELETE - [facility] DETECT Study: Project # [id number], Awning Erector: Nando Villeda, MS, MPH. SUMMARY: Goal: Establish [...] contact study staff at ; after hours Awning Erector via the [facility] building operator . - Please contact study team before resolving/deleting from patients problem list. Study phone number: [phone]. Diagnosis changed due to Research Module. Go [...] as of this encounter (statuses as of 09/28/2022) Immunizations Name Administration Dates Next Due PPD [...] encounter Miscellaneous Notes * Telephone Encounter - Nury Plascencia RN - 09/28/2022 11:47 AM EDT Pt calling very upset in regards to all the issues she has been facing since being in the hospital and now being evicted from her apartment. For the majority of our conversation she expressed frustration over her treatment at [facility] and the choices made by her hospitalist. [...] get "nowhere with anybody." I offered to circuit design engineer her contact information for the [facility] [place], she deferred as she states she has [...] 09/26/2022 10:59 AM EDT Pt seen at [facility] for anemia wo gross GI bleeding. Pls arrange outpt EGD and colonoscopy appts MARY Bishop documented in this encounter Plan of Treatment Upcoming Encounters Date Type Specialty Care Team Description 10/26/2022 Office Visit Family Medicine Ly Tavarez DO [address] [place] [address] 11/04/2022 Office Visit Orthopedics Claude Diaz MD [address] [place] [address] Scheduled Orders Name Type Priority Associated Diagnoses Orde r Schedule EGD, FLEXIBLE, DIAGNOSTIC Procedures Routine Anemia, unspecified type Other general symptoms and signs Ordered: 09/26/2022 COLONOSCOPY, DIAGNOSTIC (RECTUM) Procedures Routine Anemia, unspecified type Iron deficiency anemia, unspecified iron deficiency anemia type Ordered: 09/26/2022 Scheduled Procedures Name Priority Associated Diagnoses Date/Ti me COLONOSCOPY FLEXIBLE PROXIMAL DIAGNOSTIC Recall History of colon polyps Anemia, unspecified type Iron deficiency anemia, unspecified iron deficiency anemia type ESOPHAGOGASTRODUODENOSCOPY ( EGD), FLEXIBLE, TRANSORAL, DIAGNOSTIC Recall History of colon polyps Anemia, unspecified type Iron deficiency anemia, unspecified iron deficiency anemia type Health Maintenance Due Date Last Done Comments Albumin/Creatinine Ratio 01/18/2018 01/18/2017 CKD PHOS USE SMARTSET 09978 07/29/201807/18, 03/31/2016, 08/06/2014 Depression Screening, Annual for [...] Additional history exists CKD HGB USE SMARTSET 97782 08/04/202308/03, 07/29/2017, 03/31/2016, Additional history exists Pneumococcal [...] type documented in this encounter Care Teams Joy Operator Helper Relationship Specialty Start Date End Date Deja Oseguera CRNP [address] [place] [address] PCP - General Nurse Practitioner 12/24/20 documented as of this encounter
--- OUTSIDE RECORDS SUMMARY | 2022-12-12 21:43 | External Medical Summary | Summary of Care ---
Author Name Unknown Organization [facility] Address [address] [facility] [place] [address] Phone [phone] Care Team Providers Care Central Supply Nurse Name Role Phone Deja Oseguera Primary Care Provider Reason for Visit * Reason Comments Follow Up 6 week recheck post Mohs on lip. Pt states that there is a string coming out of lip that's getting longer and longer. Also pt states tooth was broken during initial surgery Encounter Details Date Type Department Care Team Description 08/18/2022 Office Visit [facility] Surgery [facility] [address] [place] [address] Jayson Holliday MD [address] [place] [address] Scar condition and fibrosis of skin* Allergies Active Allergy Reactions Severity Noted Date Comments Prednisone Other (Please comment) 12/22/2016 Urinary incontinence documented as of this encounter (statuses as of 08/18/2022) Medications Medication Sig Dispensed Refills Start Date [...] units Capsule Take by mouth. 0 Active [place] 3 1200 MG CAPS 0 Acti ve [...] 0 Active dilTIAZem HCl (CARDIZEM OINTMENT) 2% [place] GEL Administer into the rectum 3 times [...] as of this encounter (statuses as of 08/18/2022) Active Problems Problem Noted Date Prediabetes 08/08/2017 [...] as of this encounter (statuses as of 08/18/2022) Resolved Problems Problem Noted Date Resolved Date Encounter for examination fo r normal comparison and control in clinical research program 08/28/2017 10/21/2019 Overview: DO NOT DELETE [facility] DETECT Study: Project # [id number], Flue Blower: Jace Arrington, PhD. SUMMARY: Goal: Establish test [...] contact study staff at ; after hours Flue Blower via the [facility] corn sheller operator . Please contact study team before resolving/deleting from patients problem list. Study phone number: [phone]. Diagnosis changed due to Research Module. Go to Snapshot for study details. Encounter for examination fo r normal comparison and control in clinical research program 08/28/2017 11/18/2021 Overview: DO NOT DELETE - [facility] Study: Project # [id number], Flue Blower: Nando Villeda, MS, MPH. SUMMARY: Goal: Establish [...] contact study staff at ; after hours Flue Blower via the [facility] corn sheller operator . - Please contact study team before resolving/deleting from patients problem list. Study phone number: [phone]. Diagnosis changed due to Research Module. Go [...] as of this encounter (statuses as of 08/18/2022) Immunizations Name Administration Dates Next Due PPD [...] as of this encounter Progress Notes * Jayson Holliday MD - 08/18/2022 12:18 PM EDT Patient returns 6 weeks after Mohs for recheck on healing. Has a spitting suture. Exam: Limited examination preformed today to right upper lip. Surgical site is well healed.. Plan: Spitting suture removed Patient states that her tooth was broken during surgery. We again reviewed the time course of the tooth breaking 10 days after surgery while eating cereal at home. She eventually agreed with this time course-- she stated she forgot that her tooth broke while eating cereal. This conversation was in the presence of my nurse CHASE Bower MD documented in this encounter Nursing Notes * Suha Magaña LPN - 08/18/2022 11:22 AM EDT Chief Complaint Patient presents with • Follow Up 6 week recheck post Mohs on lip. Pt states that there is a string coming out of lip that's getting longer and longer. Also pt states tooth was broken during initial surgery documented in this encounter Plan of Treatment Upcoming Encounters Date Type Specialty Care Team Description 09/14/2022 Hospital Encounter Surgery Ryder Curry DO [address] [place] [address] 09/14/2022 Surgery Surgery Ryder Curry DO [address] [place] [address] INJECTION SPINE LUMBAR OR SACRAL 11/04/2022 Office Visit Orthopedics Claude Diaz MD [address] [place] [address] Scheduled Procedures Name Priority Associated Diagnoses Date/Ti me INJECTION SPINE LUMBAR OR SACRAL Lumbar radiculopathy 09/14/2022 1:00 PM EDT COLONOSCOPY FLEXIBLE PROXIMAL DIAGNOSTIC Recall History of colon polyps Health Maintenance Due Date Last Done Comments Albumin/Creatinine Ratio 01/18/2018 01/18/2017 CKD PHOS USE SMARTSET 64378 07/29/201807/18, 03/31/2016, 08/06/2014 Depression Screening, Annual for Pts 12 and Over 08/11/2018 08/11/2017 HbA1c 08/24/2018 08/24/2017 DXA Scan 03/15/2019 03/15/2012 Zoster Vaccines (3 of 3) 10/27/2021 09/01/2021, 03/2007 COVID-19 Vaccine (3 - Booster for Pfizer series) 11/26/2021 10/01/2021, 05/15/2020, 04/24/2020 DTaP,Tdap,and Td Vaccines (2 - Td or Tdap) 12/19/2021 12/20/2011 COLONOSCOPY-EVERY 5 YRS AGES 18-100 12/29/2021 12/29/2016, 12/29/2016 Influenza Vaccine (FLU shot) (Season Ended) 2022 12/16/2019, 12/21/2018, 12/21/2017, Additional history exists GFR 02/03/2023 08/03/2022, 08/18, 07/29/2017, Additional history exists CKD HGB USE SMARTSET 21682 08/04/202308/03, 07/29/2017, 03/31/2016, Additional history exists Pneumococcal [...] as of this encounter Visit Diagnoses Diagnosis Scar condition and fibrosis of skin- Primary Lumbar radiculopathy Thoracic or lumbosacral neuritis or radiculitis, unspecified documented in this encounter Care Teams Central Supply Nurse Relationship Specialty Start Date End Date Deja Oseguera CRNP [address] [place] [address] PCP - General Nurse Practitioner 12/24/20 documented as of this encounter
--- OUTSIDE RECORDS SUMMARY | 2022-12-12 21:43 | External Medical Summary | Summary of Care ---
Author Name Unknown Organization [facility] Address [address] [facility] [place] [address] Phone [phone] Care Team Providers Care Systems Test Analyst Name Role Phone Deja Oseguera Primary Care Provider Reason for Referral * Precert (Within 10 days (routine)) - Authorized Specialty Diagnoses / Procedures Referred By Controbert t Referred To Contact Radiology Diagnoses Hip pain, right Procedures MRI HIP RIGHT WO CONTRAST Ryder Curry DO [address] [employer] [place] [address] Referral ID Status Reason Start Date Expiration Date V isits Requested Visits Authorized [id number] Authorized 09/30/2022 999 999 Encounter Details Date Type Department Care Team Description 09/23/2022 Orders Only Interventional Pain Center, [facility] [address] [place] [address] Ryder Curry DO [address] [place] [address] Hip pain, right* Allergies Active Allergy Reactions Severity Noted Date Comments Prednisone Other (Please comment) 12/22/2016 Urinary incontinence documented as of this encounter (statuses as of 09/23/2022) Medications Medication Sig Dispensed Refills Start Date [...] units Capsule Take by mouth. 0 Active [place] 3 1200 MG CAPS 0 Acti ve [...] 0 Active dilTIAZem HCl (CARDIZEM OINTMENT) 2% AL GEL Administer into the rectum 3 times [...] as of this encounter (statuses as of 09/23/2022) Active Problems Problem Noted Date Prediabetes 08/08/2017 [...] as of this encounter (statuses as of 09/23/2022) Resolved Problems Problem Noted Date Resolved Date Encounter for examination fo r normal comparison and control in clinical research program 08/28/2017 10/21/2019 Overview: DO NOT DELETE [facility] [employer] [facility] [employer] [facility] Study: Project # [id number], Plant Pathologist: Jace Arrington, PhD. SUMMARY: Goal: Establish test [...] contact study staff at ; after hours Plant Pathologist via the [facility] hospital paper bag machine operator . Please contact study team before resolving/deleting from patients problem list. Study phone number: [phone]. Diagnosis changed due to Research Module. Go to Snapshot for study details. Encounter for examination fo r normal comparison and control in clinical research program 08/28/2017 11/18/2021 Overview: DO NOT DELETE - [facility] Study: Project # [id number], Plant Pathologist: Nando Villeda, MS, MPH. SUMMARY: Goal: Establish [...] contact study staff at ; after hours Plant Pathologist via the [facility] hospital paper bag machine operator . - Please contact study team before resolving/deleting from patients problem list. Study phone number: [phone]. Diagnosis changed due to Research Module. Go [...] as of this encounter (statuses as of 09/23/2022) Immunizations Name Administration Dates Next Due PPD [...] as of this encounter Progress Notes * Ryder Curry DO - 09/23/2022 11:59 AM EDT I need to change the lumbar MRI to MRI right Hip. My error in placing order. documented in this encounter Plan of Treatment Upcoming Encounters Date Type Specialty Care Team Description 10/26/2022 Office Visit Family Medicine Ly Tavarez DO [address] [place] [address] 11/04/2022 Office Visit Orthopedics Claude Diaz MD [address] [place] [address] Scheduled Orders Name Type Priority Associated Diagnoses Orde r Schedule MRI HIP RIGHT WO CONTRAST Medical Imaging Routine Hip pain, right Expected: 09/30/2022, Expires: 10/25/2023 Scheduled Procedures Name Priority Associated Diagnoses Date/Ti me COLONOSCOPY FLEXIBLE PROXIMAL DIAGNOSTIC Recall History of colon polyps Health Maintenance Due Date Last Done Comments Albumin/Creatinine Ratio 01/18/2018 01/18/2017 CKD PHOS USE SMARTSET 77202 07/29/201807/18, 03/31/2016, 08/06/2014 Depression Screening, Annual for Pts 12 and Over 08/11/2018 08/11/2017 HbA1c 08/24/2018 08/24/2017 DXA Scan 03/15/2019 03/15/2012 Zoster Vaccines (3 of 3) 10/27/2021 09/01/2021, 01/03/2007 COVID-19 Vaccine (3 - Pfizer series) 11/26/2021 10/01/2021, 05/15/2020, 04/24/2020 DTaP,Tdap,and Td Vaccines (2 - Td or Tdap) 12/19/2021 12/20/2011 COLONOSCOPY-EVERY 5 YRS AGES 18-100 12/29/2021 12/29/2016, 12/29/2016 Influenza Vaccine (FLU shot) (#1) 2022 12/16/2019, 12/21/2018, 12/21/2017, Additional history exists GFR 02/03/2023 08/03/2022, 08/18, 07/29/2017, Additional history exists CKD HGB USE SMARTSET 31947 08/04/202308/03, 07/29/2017, 03/31/2016, Additional history exists Pneumococcal [...] as of this encounter Visit Diagnoses Diagnosis Hip pain, right- Primary Pain in joint, pelvic region and thigh documented in this encounter Care Teams Systems Test Analyst Relationship Specialty Start Date End Date Deja Oseguera CRNP [address] [place] [address] PCP - General Nurse Practitioner 12/24/20 documented as of this encounter
--- OUTSIDE RECORDS SUMMARY | 2022-12-12 21:43 | External Medical Summary ---
Author Name Unknown Address Unknown Organization K09:[facility] [place] [address] Laboratory Report Ordering Provider Test Date Status ISAAC NUNES 08/03/2022 05:55:00 Final Observation Date Value Abnormality Reference (Units ) Status BUN 08/03/2022 05:55:00 19 6-20 (mg/dL) Final Creatinine 08/03/2022 05:55:00 1.1 Above high normal 0.5-1.0 (mg/dL) Final Glomerular filtration rate/1.73 sq M.predicted [Volume Rate/Area] in Serum, Plasma or Blood by Creatinine-based formula (CKD-EPI) 08/03/2022 05:55:00 51 Below low normal >=60 (mL/min) Final Performing Location [facility] [place] [address]
--- OUTSIDE RECORDS SUMMARY | 2022-12-12 21:43 | External Medical Summary | Summary of Care ---
Author Name Unknown Organization [facility] Address [address] [facility] [place] [address] Phone [phone] Care Team Providers Care Cottage Parent Name Role Phone Deja Oseguera Primary Care Provider Reason for Visit * Reason Onset Date Comments Advice 07/15/2022 Encounter Details Date Type Department Care Team Description 07/15/2022 Telephone Interventional Pain Center, [facility] [address] [place] [address] CousinsRyder, [address] [place] [address] Advice Allergies Active Allergy Reactions Severity Noted Date Comments Prednisone Other (Please comment) 12/22/2016 Urinary incontinence documented as of this encounter (statuses as of 07/19/2022) Medications Medication Sig Dispensed Refills Start Date [...] units Capsule Take by mouth. 0 Active [place] 3 1200 MG CAPS 0 Acti ve [...] as of this encounter (statuses as of 07/19/2022) Active Problems Problem Noted Date Prediabetes 08/08/2017 [...] as of this encounter (statuses as of 07/19/2022) Resolved Problems Problem Noted Date Resolved Date Encounter for examination fo r normal comparison and control in clinical research program 08/28/2017 10/21/2019 Overview: DO NOT DELETE [facility] DETECT Study: Project # [id number], Automatic Spinning Lathe Operator: Jace Arrington, PhD. SUMMARY: Goal: Establish [...] contact study staff at ; after hours Automatic Spinning Lathe Operator via the [facility] linting machine operator . Please contact study team before resolving/deleting from patients problem list. Study phone number: [phone]. Diagnosis changed due to Research Module. Go to Snapshot for study details. Encounter for examination fo r normal comparison and control in clinical research program 08/28/2017 11/18/2021 Overview: DO NOT DELETE - [facility] Study: Project # [id number], Automatic Spinning Lathe Operator: Nando Villeda, MS, MPH. SUMMARY: Goal: [...] contact study staff at ; after hours Automatic Spinning Lathe Operator via the [facility] linting machine operator . - Please contact study team before resolving/deleting from patients problem list. Study phone number: [phone]. Diagnosis changed due to Research Module. Go to Snapshot for study details. Sciatica without lumbago 03/31/2016 11/01/2 017 Inflammation of sacroiliac joint 03/31/2016 04/24/2017 [...] as of this encounter (statuses as of 07/19/2022) Immunizations Name Administration Dates Next Due PPD [...] Telephone Encounter - Dominique Walker LPN - 07/15/2022 8:44 AM EDT Patient called and stated she can't walk this morning, she thinks there is an issue with her hip. Advised her that the bursa injection may take a bit longer to provide more relief and she could use heat/ice but she states it doesn't help. Patient is tearful at end of conversation. Advised her to goto ortho urgent care if she is concerned it's a hip issue. documented in this encounter Plan of Treatment Upcoming Encounters Date Type Specialty Care Team Description 08/16/2022 Office Visit Dermatology Jayson Holliday MD [address] [place] [address] 11/04/2022 Office Visit Orthopedics Claude Diaz MD [address] [place] [address] Scheduled Procedures Name Priority Associated Diagnoses Date/Ti me COLONOSCOPY FLEXIBLE PROXIMAL DIAGNOSTIC Recall History of colon polyps Health Maintenance Due Date Last Done Comments Zoster Vaccines (2 of 3) 05/15/2007 03/20/2007 Albumin/Creatinine Ratio 01/18/2018 01/18/2017 GFR - Renal Function 03/02/2018 08/31/2017, 07/29/2017, 11/14/2016, Additional history exists CKD HGB USE SMARTSET 10454 07/29/201807/29, 03/31/2016, 08/05/2015, Additional history exists CKD PHOS USE SMARTSET 63113 07/29/201807/18, 03/31/2016, 08/06/2014 Depression Screening, Annual for [...] filedocumented as of this encounter Care Teams Cottage Parent Relationship Specialty Start Date End Date Deja Oseguera CRNP [address] [place] [address] PCP - General Nurse Practitioner 12/24/20 documented as of this encounter
--- OUTSIDE RECORDS SUMMARY | 2022-12-12 21:43 | External Medical Summary | Summary of Care ---
Author Name Unknown Organization [facility] Address [address] [facility] [place] [address] Phone [phone] Care Team Providers Care Tire Curer Name Role Phone Deja Osgeuera Primary Care Provider Reason for Visit * Reason Onset Date Comments Appointment 09/26/2022 Encounter Details Date Type Department Care Team Description 09/26/2022 Telephone Gastroenterology, [facility] [address] [place] [address] Olivia Mcgrath CRNP [address] [place] [address] Appointment Allergies Active Allergy Reactions Severity Noted [...] units Capsule Take by mouth. 0 Active [place] 3 1200 MG CAPS 0 Acti ve [...] 0 Active dilTIAZem HCl (CARDIZEM OINTMENT) 2% [place] GEL Administer into the rectum 3 times [...] [facility] Study: Project # [id number], Nursing Agency Manager: Jace Arrington, PhD. SUMMARY: Goal: Establish [...] contact study staff at ; after hours Nursing Agency Manager via the [facility] wet and dry sugar bin operator . Please contact study team before resolving/deleting from patients problem list. Study phone number: [phone]. Diagnosis changed due to Research Module. Go to Snapshot for study details. Encounter for examination fo r normal comparison and control in clinical research program 08/28/2017 11/18/2021 Overview: DO NOT DELETE - [facility] DETECT Study: Project # [id number], Nursing Agency Manager: Nando Villeda, MS, MPH. SUMMARY: Goal: [...] contact study staff at ; after hours Nursing Agency Manager via the [facility] wet and dry sugar bin operator . - Please contact study team before resolving/deleting from patients problem list. Study phone number: [phone]. Diagnosis changed due to Research Module. Go [...] Miscellaneous Notes * Telephone Encounter - MARIFER Rodriguez - [...] she expressed frustration over her treatment at [facility] and the choices made by her hospitalist. [...] get "nowhere with anybody." I offered to morning caregiver her contact information for the [facility] [place], she deferred as she states she has [...] 09/26/2022 10:59 AM EDT Pt seen at [facility] for anemia wo gross GI bleeding. Pls arrange outpt EGD and colonoscopy appts MARY Bishop documented in this encounter Plan of Treatment Upcoming Encounters Date Type Specialty Care Team Description 10/04/2022 Hospital Encounter Endoscopy Jace Edwards, DO [address] [place] [address] 10/04/2022 Surgery Endoscopy Jace Edwards, DO [address] [place] [address] COLONOSCOPY FLEXIBLE PROXIMAL DIAGNOSTIC 10/26/2022 Office Visit Family Medicine Ly Tavarez DO [address] [place] [address] 11/04/2022 Office Visit Orthopedics Claude Diaz MD [address] [place] [address] Scheduled Orders Name Type Priority Associated Diagnoses [...] Ratio 01/18/2018 01/18/2017 CKD PHOS USE SMARTSET 41329 07/29/201807/18, 03/31/2016, 08/06/2014 Depression Screening, Annual for [...] Additional history exists CKD HGB USE SMARTSET 92058 08/04/202308/03, 07/29/2017, 03/31/2016, Additional history exists Pneumococcal [...] type documented in this encounter Care Teams Tire Curer Relationship Specialty Start Date End Date Deja Oseguera CRNP [address] [place] [address] PCP - General Nurse Practitioner 12/24/20 documented as of this encounter
--- OUTSIDE RECORDS SUMMARY | 2022-12-12 21:43 | External Medical Summary | Summary of Care ---
Author Name Unknown Organization [facility] Address [address] [facility] [place] [address] Phone [phone] Care Team Providers Care Manager Advertising Name Role Phone Deja Oseguera Primary Care Provider Encounter Details Date Type Department Care Team Description 06/23/2022 Result Scan Unspecified Department Ryder Curry, [address] [place] [address] <No scans attached> Allergies Active Allergy Reactions Severity Noted Date [...] units Capsule Take by mouth. 0 Active [place] 3 1200 MG CAPS 0 Acti ve [...] program 08/28/2017 10/21/2019 Overview: DO NOT DELETE [facility] DETECT Study: Project # [id number], Battery Charger Conveyor Line: Jace Arrington, PhD. SUMMARY: Goal: Establish test [...] contact study staff at ; after hours Battery Charger Conveyor Line via the [facility] filter machine operator . Please contact study team before resolving/deleting from patients problem list. Study phone number: [phone]. Diagnosis changed due to Research Module. Go to Snapshot for study details. Encounter for examination fo r normal comparison and control in clinical research program 08/28/2017 11/18/2021 Overview: DO NOT DELETE - [facility] Study: Project # [id number], Battery Charger Conveyor Line: Nando Villeda, MS, MPH. SUMMARY: Goal: Establish [...] contact study staff at ; after hours Battery Charger Conveyor Line via the [facility] filter machine operator . - Please contact study team before resolving/deleting from patients problem list. Study phone number: [phone]. Diagnosis changed due to Research Module. Go [...] Office Visit Dermatology Jayson Holliday MD [address] [facility] [place] [address] 11/04/2022 Office Visit Orthopedics Claude Diaz MD [address] [place] [address] Scheduled Procedures Name Priority Associated Diagnoses Date/Ti me COLONOSCOPY FLEXIBLE PROXIMAL DIAGNOSTIC Recall History of colon polyps Health Maintenance Due Date Last Done Comments Zoster Vaccines (2 of 3) 05/15/2007 03/20/2007 Albumin/Creatinine Ratio 01/18/2018 01/18/2017 GFR - Renal Function 03/02/2018 08/31/2017, 07/29/2017, 11/14/2016, Additional history exists CKD HGB USE SMARTSET 00334 07/29/201807/29, 03/31/2016, 08/05/2015, Additional history exists CKD PHOS USE SMARTSET 00863 07/29/201807/18, 03/31/2016, 08/06/2014 Depression Screening, Annual for [...] Name Priority Date/Time Associated Diagnosis Comments RADIOLOGY SCANNED RESULT 06/23/2022 documented in this encounter Results * RADIOLOGY SCANNED RESULT (06/23/2022) 06/23/2022 Ryder Curry DO DIAGNOSTIC [facility] documented in this encounter Care Teams Manager Advertising Relationship Specialty Start Date End Date Deja Oseguera CRNP [address] [place] [id number] PCP - General Nurse Practitioner 12/24/20 documented as of this encounter
--- OUTSIDE RECORDS SUMMARY | 2022-12-12 21:43 | External Medical Summary ---
Author Name Unknown Address Unknown Organization K09:[facility] [place] [address] Laboratory Report Ordering Provider Test Date Status ISAAC NUNES 08/03/2022 05:55:00 Final Observation Date Value Abnormality Reference (Units ) Status WBC, Total 08/03/2022 05:55:00 6.54 4.00-10.8 0 (K/uL) Final RBC 08/03/2022 05:55:00 3.99 3.85-5.15 (M/uL) Final Hemoglobin 08/03/2022 05:55:00 12.3 12.0-15.3 (g/dL) Final HCT 08/03/2022 05:55:00 36.8 36.0-45.2 (%) Final MCV 08/03/2022 05:55:00 92.2 81.5-97.5 (fL) Final MCH 08/03/2022 05:55:00 30.8 27.0-34.0 (pg) Final MCHC 08/03/2022 05:55:00 33.4 32.0-36.0 (g/dL) Final RDW 08/03/2022 05:55:00 12.3 11.5-15.5 (%) Final Platelets 08/03/2022 05:55:00 302 140-400 (K /uL) Final MPV 08/03/2022 05:55:00 10.3 6.6-11.1 ( fL) Final Performing Location [facility] [place] [address]
--- OUTSIDE RECORDS SUMMARY | 2022-12-12 21:43 | External Medical Summary | Summary of Care ---
Author Name Unknown Organization [facility] Address [address] [place] [address] Phone [phone] Care Team Providers Care Home Supervisor Name Role Phone Deja Oseguera Primary Care Provider Encounter Details Date Type Department Care Team Description 06/23/2022 Hospital Encounter Radiology Film File [address] [place] [address] Allergies Active Allergy Reactions Severity [...] units Capsule Take by mouth. 0 Active [place] 3 1200 MG CAPS 0 Acti ve [...] 0 Active dilTIAZem HCl (CARDIZEM OINTMENT) 2% [place] GEL Administer into the rectum 3 times [...] program 08/28/2017 10/21/2019 Overview: DO NOT DELETE [facility] DETECT Study: Project # [id number], Mattress Stuffer: Jace Arrington, PhD. SUMMARY: Goal: Establish test [...] contact study staff at ; after hours Mattress Stuffer via the [facility] hospital pharmaceutical plant operator . Please contact study team before resolving/deleting from patients problem list. Study phone number: [phone]. Diagnosis changed due to Research Module. Go to Snapshot for study details. Encounter for examination fo r normal comparison and control in clinical research program 08/28/2017 11/18/2021 Overview: DO NOT DELETE - [facility] Study: Project # [id number], Mattress Stuffer: Nando Villeda, MS, MPH. SUMMARY: Goal: Establish [...] contact study staff at ; after hours Mattress Stuffer via the [facility] pharmaceutical plant operator . - Please contact study team before resolving/deleting from patients problem list. Study phone number: [phone]. Diagnosis changed due to Research Module. Go [...] Care Team Description 07/14/2022 Office Visit Dermatology Jayson Holliday MD [address] [place] [address], [place] [address] 08/16/2022 Office Visit Dermatology Jayson Holliday MD [address] [place] [address] Scheduled Procedures Name Priority Associated Diagnoses Date/Ti me COLONOSCOPY FLEXIBLE PROXIMAL DIAGNOSTIC Recall History of colon polyps Health Maintenance Due Date Last Done Comments Zoster Vaccines (2 of 3) 05/15/2007 03/20/2007 Albumin/Creatinine Ratio 01/18/2018 01/18/2017 GFR - Renal Function 03/02/2018 08/31/2017, 07/29/2017, 11/14/2016, Additional history exists CKD HGB USE SMARTSET 40761 07/29/201807/29, 03/31/2016, 08/05/2015, Additional history exists CKD PHOS USE SMARTSET 12837 07/29/201807/18, 03/31/2016, 08/06/2014 Depression Screening, Annual for [...] Date/Time Associated Diagnosis Comments RADIOLOGY EXAM - GENERAL RAD (IMAGES ONLY,NO REPORT) Routine 06/23/2022 12:10 PM EDT documented in this encounter Results * RADIOLOGY EXAM - GENERAL RAD (IMAGES ONLY,NO REPORT) (06/23/2022 12:10 PM EDT) 06/23/2022 12:0 7 PM EDT Narrative Scheduling, Silent - 07/14/2022 12:21 AM EDT This is an imaging study not interpreted or resulted by a [employer] or [employer] contracted radiologist. Ryder Curry DO RADIOLOGY (RAD GEN ERAL) documented in this encounter Care Teams Home Supervisor Relationship Specialty Start Date End Date Deja Oseguera CRNP [address] [place] [id number] PCP - General Nurse Practitioner 12/24/20 documented as of this encounter
--- OUTSIDE RECORDS SUMMARY | 2022-12-12 21:43 | External Medical Summary | Summary of Care ---
Author Name Unknown Organization [facility] Address [address] [place] [address] Phone [phone] Care Team Providers Care Neighborhood Aide Name Role Phone Deja Oseguera Primary Care Provider Reason for Visit * Reason Comments Re-Check Pt here today for re check of mohs site. Encounter Details Date Type Department Care Team Description 07/14/2022 Office Visit [facility] Surgery [facility] [address] [place] [address] Jayson Holliday MD [address] [place] [address] Scar condition and fibrosis of skin* Allergies [...] units Capsule Take by mouth. 0 Active [place] 3 1200 MG CAPS 0 Acti ve [...] [facility] DETECT Study: Project # [id number], Business Analyst Intern: Jace Arrington, PhD. SUMMARY: Goal: Establish test [...] contact study staff at ; after hours Business Analyst Intern via the [facility] hospital chief lock tender operator . Please contact study team before resolving/deleting from patients problem list. Study phone number: [phone]. Diagnosis changed due to Research Module. Go to Snapshot for study details. Encounter for examination fo r normal comparison and control in clinical research program 08/28/2017 11/18/2021 Overview: DO NOT DELETE - [facility] DETECT Study: Project # [id number], Business Analyst Intern: Nando Villeda, MS, MPH. SUMMARY: Goal: Establish [...] contact study staff at ; after hours Business Analyst Intern via the [facility] chief lock tender operator . - Please contact study team before resolving/deleting from patients problem list. Study phone number: [phone]. Diagnosis changed due to Research Module. Go [...] Sign Reading Time Taken Comments Blood Pressure - - Pulse - - Temperature - - Respiratory Rate - - Oxygen Saturation - - Inhaled Oxygen Concentration - - Weight 68.9 kg (152 lb) 07/14/2022 1:40 PM EDT Height - - Body Mass Index 26.09 02/12/2020 2:00 PM EST documented in this encounter Progress Notes * Jayson Holliday MD - 07/14/2022 4:58 PM EDT Patient returns 17 days after surgery (done 06/27/22). Has swelling and bruising after surgery that was normal with location and size of tumor/repair. She was concerned by the swelling and bruising. She states that her tooth broke 10 days after surgery while she was eating cereal. We discussed this and she agrees that this was unfortunate timing but not directly caused by surgery-- given that itoccurred remote from the surgical date. Her surgical site is healing very well. Reviewed day of surgery photos and repair. Reviewed the expected swelling/bruising that accompanies surgery in this location. Surgical site now looks great andis healing very well. Recommend she seek treatment for her broken tooth/speak with her dentist. She states she will do this soon. No further questions. Photos obtained Visit was in the presence of my nurse Deanna Avila LPN. Mireille Holliday MD documented in this encounter Nursing Notes * Deanna Avila LPN - 07/14/2022 1:41 PM EDT Chief Complaint Patient presents with • Re-Check Pt here today for recheck of mohs site. Pt has concerns with mohs site area, stating that "I broke my tooth eating cereal three days after the suture removal" and feels that her "disolvable stitches inside my lip are infected". No signs/symptoms noted by this nurse at this time of infection. Deanna Avila LPN 07/14/2022 1:46 PM documented in this encounter Plan of Treatment Upcoming Encounters Date Type Specialty Care Team Description 08/16/2022 Office Visit Dermatology Jayson Holliday MD [address] [place] [address] Scheduled Procedures Name Priority Associated Diagnoses Date/Ti me COLONOSCOPY FLEXIBLE PROXIMAL DIAGNOSTIC Recall History of colon polyps Health Maintenance Due Date Last Done Comments Zoster Vaccines (2 of 3) 05/15/2007 03/20/2007 Albumin/Creatinine Ratio 01/18/2018 01/18/2017 GFR - Renal Function 03/02/2018 08/31/2017, 07/29/2017, 11/14/2016, Additional history exists CKD HGB USE SMARTSET 07590 07/29/201807/29, 03/31/2016, 08/05/2015, Additional history exists CKD PHOS USE SMARTSET 39055 07/29/201807/18, 03/31/2016, 08/06/2014 Depression Screening, Annual for [...] Scar condition and fibrosis of skin- Primary documented in this encounter Care Teams Neighborhood Aide Relationship Specialty Start Date End Date Deja Oseguera CRNP [address] [place] [address] PCP - General Nurse Practitioner 12/24/20 documented as of this encounter
--- OUTSIDE RECORDS SUMMARY | 2022-12-12 21:44 | External Medical Summary | Continuity of Care Document ---
Author Name Unknown Organization [place] [id number] [facility] Address [address] [place], [place] [id number] Care Team Providers Care Auto Dismantler Name Role Phone Deja Oseguera Primary Care Physician [phone] Encounter [facility] [id number] Date(s): 06/15/22 - 06/15/22 [facility] [address], [address] [place] [address] [phone] Discharge Disposition: Home or Self Care Attending Physician: MARY Oseguera Jill Nicole Referring Physician: MARY Oseguera Jill Nicole Allergies, Adverse Reactions, Alerts Substance Reaction Severity Status predniSONE severe depression Mild Active Immunizations Given and Recorded Vaccine Date Status Refusal Reason SARS-CoV-2 mRNA (totravonnameran 5y-11y) 10/01/21 Sanjeev rded zoster vaccine, inactivated [...] live 8 03/20/07 Recorded 1Result Comment: [facility] 2Result Comment: 2021-05-13: Historical information-source unspecified [...] 14:57:00 EDT Start Date: 10/16/19 Status: Ordered glycopyrrolate 1 mg oral tablet Start: 08/14/19 15:29:00 EDT Start Date: 08/14/19 Status: Ordered MiraLax Start: 10/19/15 13:31:00 Start Date: 10/19/15 Status: Ordered Geneseo-3 oral capsule Start: 01/16/18 13:54:00 EDT, 1,200 mg =, Daily Start Date: 01/16/18 Status: Ordered Paxil 30 mg oral tablet Start: 08/17/12 10:26:00 EDT, 1 tab, PO, Daily Start Date: 08/17/12 Status: Ordered red yeast rice 600 mg oral capsule Start: 08/17/12 10:34:00, 2 cap, PO, Daily Start Date: 08/17/12 Status: Ordered Restasis Start: 10/19/15 13:31:00, 1 drop, both eyes, bid Start Date: 10/19/15 Status: Ordered unknown medication Start: 04/18/18 13:40:00 EST, Note to Pharmacy: [facility] Start Date: 04/18/18 Status: Ordered valsartan 80 mg oral tablet Start: 09/06/21 12:32:00 EDT, See Instructions, Disp# 90 tab, Refills: 3, TAKE 1 TABLET DAILY, Pharmacy: [facility] Start Date: 09/06/21 Status: Ordered Vitamin D3 5000 intl units oral capsule Start: 11/07/17 14:30:00 EDT Start Date: 11/07/17 Status: Ordered Zanaflex 4 mg oral tablet Start: 11/09/15 15:42:00, 1 tab, PO, q8h, Disp# 90 tab, Refills: 2, Begin with a half tablet and advance to a full tablet as tolerated, Pharmacy: [id number] Start Date: 11/09/15 Stop Date: 02/07/16 Status: Ordered Problem List Condition Confirmation Course Effective Dates Status H ealth Status Informant Hand arthritis Confirmed Active Hallux rigidus Confirmed Active Ankle fracture 1 Confirmed Active Arm pain, left Confirmed Active Right hip pain Confirmed Active Left knee pain Confirmed Active Upper back pain Confirmed Active Cervical spondylosis Confirmed Active Comedone Confirmed Active Left knee DJD Confirmed Active CTS (carpal tunnel syndrome) Confirmed Active Excessive sweating Confirmed Active Foot [...] Right ankle sprain Confirmed Active 1B/L 2shoulder Procedures Procedure Date Related Diagnosis Body Site Status Bone density scan 1, 2 01/07/22 Co mpleted Mammogram 3 01/07/22 Completed MRI 4 01/12/21 Completed MRI of lumbar spine 5 08/13/20 Com pleted Mammogram 6 12/23/19 Completed Mammogram 7 12/19/18 Completed Bone density scan 8 10/23/18 Compl eted MRI 9 05/30/[address] of cervical spine 10 04/24/18 C ompleted Colonoscopy 11 12/29/16 Completed ankle bimalleolar fracture ORIF 01/08/09 Completed Biopsy of breast 1991 Compl eted Cholecystectomy 1990 Completed hysterectomy 1986 Completed tonsillectomy 1946 Completed Cataract Completed Mammogram - screening 13 Completed 110 year probability of fracture: Major Osteoporotic: 25.2% Hip: 7.6% Population: [place]() Based on DualFemur (right) Neck BMD 2Recommended follow up DEXA 01/11/24. 3IMPRESSION: ACR BI-RADS CATEGORY 2: BENIGN There is no mammographic evidence of malignancy. A 1 year screening mammogram is recommended. (01-08-2023) The patient will receive written notification of the results. 4IMPRESSION: 1.No significant change in severe multilevel neural foraminal stenosis since MRI April. This is detailed above. 2.Normal cervical cord signal and caliber. 3.Mild multilevel central canal stenosis which is similar to prior exam. 5impression 1. Multilevel degenerative changes most severe at L5-S1 also associated with grade 1 anterolisthesus of L5 on S1 6ACR BI RADS CAT 0. Need addtl imaging. 7There is no mammographic evidence of malignancy. A 1 year screening mammogram is recommended. 8T-score: -1.9 91. Severe multilevel neural foraminal stenosis, as detailed above, predominantly due to facet arthrosis and uncovertebral hypertrophy 2. Mid multilevel central canal stenosis due to disc bulges with disc osteophyte complexes. Normal cervical cord signal and caliber. 10no acute fracture or subluxation multilevel discogenic changes and facet arthrosis as above 11Adenomatous polyp - repeat 5 years. 12benign 13Impression: There is no mammographic evidence of malignancy. A 1 year screening mammogram is recommended. (01/06/2022) The patient will receive written notification of the results. Results Radiology Reports * Exam Date Time Procedure Performing Provider Status 06/15/22 3:20 PM Echo TransTHORacic TTE Complete Lelo Leon; Final Notes: (Echo TransTHORacic TTE Complete) Reason For Exam: follow up abnormal echocardiogram, mitral regurgitation Echo TransTHORacic TTE Complete Report Signatures Finalized by Dr. Neal Hendricks MD on 06/16/2022 05:18 PM [place] Act 112: Yes - Letter to be sent Summary 1. Normal left ventricular size. 2. Hyperdynamic LV systolic function with near complete cavity obliteration at end systole. 3. Ejection fraction as calculated by Biplane Simpsons method is 70-75%. 4. Grade I diastolic dysfunction of the left ventricle (impaired relaxation pattern) with elevated left atrial pressure. 5. Normal right ventricular size and function. 6. Moderately dilated left atrium. 7. Normal right atrial size. 8. Calcified, tricuspid aortic valve without stenosis. Trace aortic insufficiency. 9. Severely calcified mitral valve annulus with restriction of the posterior leaflet. No mitral stenosis. 10. Elongated Anterior mitral leaflet with Systolic anterior motion of the anterior mitral leaflet with flow acceleration in the LVOT. 11. Flow acceleration in the LVOT secondary to systolic anterior motion of the anterior MV leaflet. Peak pressure gradient through the LVOT is 15 mmHg at rest and increases to 34 mmHg with provocative maneuvers. 12. Mild to moderate mitral valve regurgitation. 13. Normal estimated pulmonary artery pressures, estimated PASP is 20 mmHg. 14. Compared to the previous study 01/08/2021, both the LVOT gradient and degree of mitral regurgitation have decreased (improved). Patient Info Name: MADELINE CHACON Age: 82 years : 1940 Gender: Female Ht: 160 cm Wt: 69 kg BSA: 1.77 m2 HR: 66 bpm BP: 188 / 88 mmHg Heart Rhythm: Sinus Rhythm Technical Quality: Good Exam Date: 06/15/2022 2:37 PM Exam Location: [facility] Patient Status: Outpatient Staff Ordering Physician: Deja Oseguera Court Crier: Lelo Leon RDCS, RVT Attending Physician: Deja Oseguera Study Info CPT 52646 - Indications I340 - Nonrheumatic mitral (valve) insufficiency Procedure(s) * A complete two-dimensional, color flow and Doppler transthoracic echocardiogram was performed. Exam Type: Cardiac Basic Left Ventricle Normal left ventricular size. Hyperdynamic LV systolic function with near complete cavity obliteration at end systole. Ejection fraction as calculated by Biplane Simpsons method is 70-75%. Moderate to severe concentric left ventricular hypertrophy with more pominent basal septal thickening leading to a small LVOT. Grade I diastolic dysfunction of the left ventricle (impaired relaxation pattern) with elevated left atrial pressure. Right Ventricle Normal right ventricular size and function. TAPSE is normal, 2.1 cm. Left Atrium Moderately dilated left atrium. Right Atrium Normal right atrial size. Atrial Septum Appears intact. Aortic Valve Calcified, tricuspid aortic valve without stenosis. Trace aortic insufficiency. Pulmonic Valve Unremarkable pulmonic valve. Trace pulmonary regurgitation. Estimated pulmonary arterial mean pressure is 15 mmHg. Mitral Valve Severely calcified mitral valve annulus with restriction of the posterior leaflet. No mitral stenosis. Elongated Anterior mitral leaflet with Systolic anterior motion of the anterior mitral leaflet with flow acceleration in the LVOT. Flow acceleration in the LVOT secondary to systolic anterior motion of the anterior MV leaflet. Peak pressure gradient through the LVOT is 15 mmHg at rest and increases to 34 mmHg with provocative maneuvers. Mild to moderate mitral valve regurgitation. Tricuspid Valve Unremarkable tricuspid valve. Trace tricuspid valve regurgitation. Normal estimated pulmonary artery pressures, estimated PASP is 20 mmHg. Pericardium/Pleural No pericardial effusion. Inferior Vena Cava Normal IVC size and inspiratory collapse. Aorta Normal aortic root, ascending aorta and arch. Left Ventricular Outflow Tract Name Value Normal LVOT 2D LVOT Diameter 1.7 cm LVOT Doppler LVOT Peak Velocity 1.91 m/s LVOT Peak Gradient 15 mmHg LVOT Mean Gradient 8 mmHg LVOT VTI 39.21 cm LVOT Stroke Volume 88.42 ml LVOT Stroke Volume Index 0.05 l/m2 LVOT Cardiac Output 5.84 l/min LVOT Cardiac Index 3.30 L/min/m2 Pulmonic Valve Name Value Normal PV 2D RVOT Diameter (2D) 2.5 cm 1.7-2.7 RVOT Doppler RVOT Peak Velocity 0.70 m/s PV Doppler PV Peak Velocity 0.95 m/s PV Regurgitation Doppler DC Peak End Diastolic Velocity 1.15 m/s DC Peak End Diastolic Gradient 5 mmHg DC Peak Velocity 1.74 m/s Mitral Valve Name Value Normal MV Doppler MV Peak Velocity 1.53 m/s MV Peak Gradient 9 mmHg MV Mean Gradient 3 mmHg MV VTI 38.98 cm MV PHT 94 ms MV Area (Cont Eq VTI) 2.3 cm2 MV Area Index (Cont Eq VTI) 1.28 cm2/m2 MV Diastolic Function MV E Peak Velocity 1.11 m/s <=0.50 MV A Peak Velocity 1.48 m/s MV E/A 0.76 <=0.80 MV Decel Time 324 ms MV Annular TDI MV Septal s' Velocity 5.85 cm/s MV Septal e' Velocity 5.03 cm/s >=7.00 MV E/e' (Septal) 22.2 <=8.0 MV Lateral s' Velocity 7.45 cm/s MV Lateral e' Velocity 7.53 cm/s >=10.00 MV E/e' (Lateral) 14.78 <=8.00 MV e' Average 6.28 MV E/e' (Average) 18.47 <=14.00 Tricuspid Valve Name Value Normal TV Regurgitation Doppler TR Peak Velocity 2.07 m/s <=2.80 TR Peak Gradient 17 mmHg Estimated PAP/RSVP RA Pressure 3 mmHg <=5 PA Systolic Pressure 20 mmHg <40 PA End Diastolic Pressure for DC 8 mmHg PA Mean Pressure (DC Velocity) 15 mmHg TV Diastolic Function TV E Peak Velocity 0.51 m/s TV A Peak Velocity 0.39 m/s TV E/A 1.31 0.80-2.00 TV Decel Time 229 ms >=120 TV Annular TDI TV Lateral Kendy s' Velocity 18.8 cm/s 9.5-18.7 TV Lateral Kendy e' Velocity 16.3 cm/s <7.8 TV E/e' 3.15 2.00-6.00 Pulmonary Vessels Name Value Normal Pulmonary Artery Doppler PA End Diastolic Pressure for DC 8 mmHg Aorta Name Value Normal Ascending Aorta Sinus of Valsalva Diameter 2.5 cm 2.7-3.3 Sinus of Valsalva Index 1.42 cm/m2 1.60-2.00 Prox Asc Ao Diameter 3.1 cm 2.3-3.1 Prox Asc Ao Diameter Index 1.73 cm/m2 1.30-1.90 Thoracic Aorta Desc Ao Peak Velocity 0.85 m/s Desc Ao Peak Gradient 3 mmHg Venous Name Value Normal IVC/SVC IVC Diameter (Insp 2D) 0.4 cm IVC Diameter (Exp 2D) 1.3 cm <=2.1 IVC Diameter Percent Change (2D) 68 % >=50 Aortic Valve Name Value Normal AV Doppler AV Peak Velocity 1.71 m/s <2.00 AV Peak Gradient 12 mmHg AV Area (Cont Eq Roberto Carlos) 2.5 cm2 AV Area Index (Cont Eq Roberto Carlos) 1.42 cm2/m2 AV V1/V2 Ratio 1.11 AV Regurgitation 2D LVOT Area 2.3 cm2 Ventricles Name Value Normal LV Dimensions 2D/MM IVS Diastolic Thickness (2D) 1.7 cm 0.6-0.9 LVID Diastole (2D) 3.4 cm 3.3-5.1 LVIW Diastolic Thickness (2D) 1.5 cm 0.6-0.9 LVID Systole (2D) 1.8 cm 2.2-3.5 LVOT Diameter 1.7 cm LV Mass (2D Cubed) 210.41 g 67.00-162.00 LV Mass Index (2D Cubed) 0.01 g/cm2 0.00-0.01 Relative Wall Thickness (2D) 0.90 LV Fractional Shortening/Ejection Fraction 2D/MM LV Fractional Shortening (2D) 48 % 27-45 LV Diastolic Volume (4C MOD) 64 ml LV Diastolic Volume (2C MOD) 61 ml LV Diastolic Volume (BP MOD) 62 ml 46-106 LV Diastolic Volume Index (BP MOD) 35.01 ml/m2 29.00-61.00 LV Systolic Volume (BP MOD) 19 ml 14-42 LV Systolic Volume Index (BP MOD) 10.88 ml/m2 8.00-24.00 LV EF (BP MOD) 70 % 58-69 LV End Diastolic Volume (BP A-L) 63.88 ml LV End Systolic Volume (BP A-L) 16.74 ml LV EF (BP A-L) 74 % LV Stroke Volume (4C MOD) 43.00 ml RV Dimensions 2D/MM RV Basal Diastolic Dimension 3.0 cm 2.5-4.1 TAPSE 2.1 cm >=1.7 Atria Name Value Normal LA Dimensions LA Area (4C) 22.8 cm2 LA Length (4C) 5.7 cm LA Area (2C) 23.8 cm2 LA Length (2C) 5.8 cm LA Volume (4C A-L) 77.46 ml LA Volume (2C A-L) 83.48 ml LA Volume (BP A-L) 81 ml 22-52 LA Volume Index (BP A-L) 45.86 ml/m2 <=34.00 RA Dimensions RA Area (4C) 13.5 cm2 <=18.0 Final Signed by:DO Hendricks Jason D Signed (Electronic Signature):06/15/2022 2:37 p Social History Social History Type Response Tobacco 1 Smoking Status Never smoked cigaret chung Sex Female 1quit 1987 Heart Transthoracic * DO Hendricks Jason D: VERIFY, PERFORM, VERIFY Event Display: Report Authored Date: [id number] Report Signatures Finalized by Dr. Neal Hendricks MD on 06/16/2022 05:18 PM [place] Act 112: Yes - Letter to be sent Summary 1. Normal left ventricular size. 2. Hyperdynamic LV systolic function with near complete cavity obliteration at end systole. 3. Ejection fraction as calculated by Biplane Simpsons method is 70-75%. 4. Grade I diastolic dysfunction of the left ventricle (impaired relaxation pattern) with elevated left atrial pressure. 5. Normal right ventricular size and function. 6. Moderately dilated left atrium. 7. Normal right atrial size. 8. Calcified, tricuspid aortic valve without stenosis. Trace aortic insufficiency. 9. Severely calcified mitral valve annulus with restriction of the posterior leaflet. No mitral stenosis. 10. Elongated Anterior mitral leaflet with Systolic anterior motion of the anterior mitral leaflet with flow acceleration in the LVOT. 11. Flow acceleration in the LVOT secondary to systolic anterior motion of the anterior MV leaflet. Peak pressure gradient through the LVOT is 15 mmHg at rest and increases to 34 mmHg with provocative maneuvers. 12. Mild to moderate mitral valve regurgitation. 13. Normal estimated pulmonary artery pressures, estimated PASP is 20 mmHg. 14. Compared to the previous study 01/08/2021, both the LVOT gradient and degree of mitral regurgitation have decreased (improved). Patient Info Name: MADELINE CHACON Age: 82 years : 1940 Gender: Female Ht: 160 cm Wt: 69 kg BSA: 1.77 m2 HR: 66 bpm BP: 188 / 88 mmHg Heart Rhythm: Sinus Rhythm Technical Quality: Good Exam Date: 06/15/2022 2:37 PM Exam Location: [facility] Patient Status: Outpatient Staff Ordering Physician: Deja Oseguera Court Crier: Lelo Leon RDCS, RVT Attending Physician: Deja Oseguera Study Info CPT 32300 - Indications I340 - Nonrheumatic mitral (valve) insufficiency Procedure(s) * A complete two-dimensional, color flow and Doppler transthoracic echocardiogram was performed. Exam Type: Cardiac Basic Left Ventricle Normal left ventricular size. Hyperdynamic LV systolic function with near complete cavity obliteration at end systole. Ejection fraction as calculated by Biplane Simpsons method is 70-75%. Moderate to severe concentric left ventricular hypertrophy with more pominent basal septal thickening leading to a small LVOT. Grade I diastolic dysfunction of the left ventricle (impaired relaxation pattern) with elevated left atrial pressure. Right Ventricle Normal right ventricular size and function. TAPSE is normal, 2.1 cm. Left Atrium Moderately dilated left atrium. Right Atrium Normal right atrial size. Atrial Septum Appears intact. Aortic Valve Calcified, tricuspid aortic valve without stenosis. Trace aortic insufficiency. Pulmonic Valve Unremarkable pulmonic valve. Trace pulmonary regurgitation. Estimated pulmonary arterial mean pressure is 15 mmHg. Mitral Valve Severely calcified mitral valve annulus with restriction of the posterior leaflet. No mitral stenosis. Elongated Anterior mitral leaflet with Systolic anterior motion of the anterior mitral leaflet with flow acceleration in the LVOT. Flow acceleration in the LVOT secondary to systolic anterior motion of the anterior MV leaflet. Peak pressure gradient through the LVOT is 15 mmHg at rest and increases to 34 mmHg with provocative maneuvers. Mild to moderate mitral valve regurgitation. Tricuspid Valve Unremarkable tricuspid valve. Trace tricuspid valve regurgitation. Normal estimated pulmonary artery pressures, estimated PASP is 20 mmHg. Pericardium/Pleural No pericardial effusion. Inferior Vena Cava Normal IVC size and inspiratory collapse. Aorta Normal aortic root, ascending aorta and arch. Left Ventricular Outflow Tract Name Value Normal LVOT 2D LVOT Diameter 1.7 cm LVOT Doppler LVOT Peak Velocity 1.91 m/s LVOT Peak Gradient 15 mmHg LVOT Mean Gradient 8 mmHg LVOT VTI 39.21 cm LVOT Stroke Volume 88.42 ml LVOT Stroke Volume Index 0.05 l/m2 LVOT Cardiac Output 5.84 l/min LVOT Cardiac Index 3.30 L/min/m2 Pulmonic Valve Name Value Normal PV 2D RVOT Diameter (2D) 2.5 cm 1.7-2.7 RVOT Doppler RVOT Peak Velocity 0.70 m/s PV Doppler PV Peak Velocity 0.95 m/s PV Regurgitation Doppler DC Peak End Diastolic Velocity 1.15 m/s DC Peak End Diastolic Gradient 5 mmHg DC Peak Velocity 1.74 m/s Mitral Valve Name Value Normal MV Doppler MV Peak Velocity 1.53 m/s MV Peak Gradient 9 mmHg MV Mean Gradient 3 mmHg MV VTI 38.98 cm MV PHT 94 ms MV Area (Cont Eq VTI) 2.3 cm2 MV Area Index (Cont Eq VTI) 1.28 cm2/m2 MV Diastolic Function MV E Peak Velocity 1.11 m/s <=0.50 MV A Peak Velocity 1.48 m/s MV E/A 0.76 <=0.80 MV Decel Time 324 ms MV Annular TDI MV Septal s' Velocity 5.85 cm/s MV Septal e' Velocity 5.03 cm/s >=7.00 MV E/e' (Septal) 22.2 <=8.0 MV Lateral s' Velocity 7.45 cm/s MV Lateral e' Velocity 7.53 cm/s >=10.00 MV E/e' (Lateral) 14.78 <=8.00 MV e' Average 6.28 MV E/e' (Average) 18.47 <=14.00 Tricuspid Valve Name Value Normal TV Regurgitation Doppler TR Peak Velocity 2.07 m/s <=2.80 TR Peak Gradient 17 mmHg Estimated PAP/RSVP RA Pressure 3 mmHg <=5 PA Systolic Pressure 20 mmHg <40 PA End Diastolic Pressure for DC 8 mmHg PA Mean Pressure (DC Velocity) 15 mmHg TV Diastolic Function TV E Peak Velocity 0.51 m/s TV A Peak Velocity 0.39 m/s TV E/A 1.31 0.80-2.00 TV Decel Time 229 ms >=120 TV Annular TDI TV Lateral Kendy s' Velocity 18.8 cm/s 9.5-18.7 TV Lateral Kendy e' Velocity 16.3 cm/s <7.8 TV E/e' 3.15 2.00-6.00 Pulmonary Vessels Name Value Normal Pulmonary Artery Doppler PA End Diastolic Pressure for DC 8 mmHg Aorta Name Value Normal Ascending Aorta Sinus of Valsalva Diameter 2.5 cm 2.7-3.3 Sinus of Valsalva Index 1.42 cm/m2 1.60-2.00 Prox Asc Ao Diameter 3.1 cm 2.3-3.1 Prox Asc Ao Diameter Index 1.73 cm/m2 1.30-1.90 Thoracic Aorta Desc Ao Peak Velocity 0.85 m/s Desc Ao Peak Gradient 3 mmHg Venous Name Value Normal IVC/SVC IVC Diameter (Insp 2D) 0.4 cm IVC Diameter (Exp 2D) 1.3 cm <=2.1 IVC Diameter Percent Change (2D) 68 % >=50 Aortic Valve Name Value Normal AV Doppler AV Peak Velocity 1.71 m/s <2.00 AV Peak Gradient 12 mmHg AV Area (Cont Eq Roberto Carlos) 2.5 cm2 AV Area Index (Cont Eq Roberto Carlos) 1.42 cm2/m2 AV V1/V2 Ratio 1.11 AV Regurgitation 2D LVOT Area 2.3 cm2 Ventricles Name Value Normal LV Dimensions 2D/MM IVS Diastolic Thickness (2D) 1.7 cm 0.6-0.9 LVID Diastole (2D) 3.4 cm 3.3-5.1 LVIW Diastolic Thickness (2D) 1.5 cm 0.6-0.9 LVID Systole (2D) 1.8 cm 2.2-3.5 LVOT Diameter 1.7 cm LV Mass (2D Cubed) 210.41 g 67.00-162.00 LV Mass Index (2D Cubed) 0.01 g/cm2 0.00-0.01 Relative Wall Thickness (2D) 0.90 LV Fractional Shortening/Ejection Fraction 2D/MM LV Fractional Shortening (2D) 48 % 27-45 LV Diastolic Volume (4C MOD) 64 ml LV Diastolic Volume (2C MOD) 61 ml LV Diastolic Volume (BP MOD) 62 ml 46-106 LV Diastolic Volume Index (BP MOD) 35.01 ml/m2 29.00-61.00 LV Systolic Volume (BP MOD) 19 ml 14-42 LV Systolic Volume Index (BP MOD) 10.88 ml/m2 8.00-24.00 LV EF (BP MOD) 70 % 58-69 LV End Diastolic Volume (BP A-L) 63.88 ml LV End Systolic Volume (BP A-L) 16.74 ml LV EF (BP A-L) 74 % LV Stroke Volume (4C MOD) 43.00 ml RV Dimensions 2D/MM RV Basal Diastolic Dimension 3.0 cm 2.5-4.1 TAPSE 2.1 cm >=1.7 Atria Name Value Normal LA Dimensions LA Area (4C) 22.8 cm2 LA Length (4C) 5.7 cm LA Area (2C) 23.8 cm2 LA Length (2C) 5.8 cm LA Volume (4C A-L) 77.46 ml LA Volume (2C A-L) 83.48 ml LA Volume (BP A-L) 81 ml 22-52 LA Volume Index (BP A-L) 45.86 ml/m2 <=34.00 RA Dimensions RA Area (4C) 13.5 cm2 <=18.0 Final Signed by:DO Hendricks Jason D Signed (Electronic Signature):06/15/2022 2:37 p Patient Care team information Personnel Name: MARY Oseguera Jill Nicole Address: Address: [address] [place] [address], [place] [address]
--- OUTSIDE RECORDS SUMMARY | 2022-12-12 21:44 | External Medical Summary | Summary of Care ---
Author Name Unknown Organization [facility] Address [address] [place] [address] Phone [phone] Care Team Providers Care Industrial Hire Sales Assistant Name Role Phone Deja Oseguera Primary Care Provider Reason for Visit * Reason Comments Mohs Surgery Right upper cutaneou s * Evaluate & Treat - Unlimited Visits (Within 30 days (routine)) - Authorized Specialty Diagnoses / Procedures Referred By Contac t Referred To Contact Dermatology Diagnoses BCC (basal cell carcinoma), lip Zachary Howard MD [address] [place] [address] Referral ID Status Reason Start Date Expiration Date Visits Requested Visits Authorized [id number] Authorized Specialty Services Required 04/18/[phone] Encounter Details Date Type Department Care Team Description 06/27/2022 Office Visit MOHS Surgery [facility] [address] [place] [address] Jayson Holliday MD [address] [place] [address] BCC (basal cell carcinoma), lip* Allergies Active Allergy Reactions Severity Noted Date Comments Prednisone Other (Please comment) 12/22/2016 Urinary incontinence documented as of this encounter (statuses as of 06/27/2022) Medications Medication Sig Dispensed Refills Start Date End Date Status STOOL SOFTENER 100 MG PO TABS 1 tablet daily as needed for constipation 0 Active RED YEAST RICE 600 MG PO CAPS 1 daily 0 Active PROGESTERONE 1000 MG/60GM EX CREA apply once daily 0 Act stephanie cycloSPORINE 0.05 % Ophthalmic Emulsion Instill 1 Drop into both eyes in the morning and 1 Drop before bedtime. affected eye(s). 32 Vial 11 05/14/2015 Active PARoxetine (PAXIL) 30 MG TabletIndications: Adjustment disorder with depressed mood,Posttraumatic stress disorder Take 1 Tab by mouth daily. 90 Tab 3 05/14/2015 Active diazepam (VALIUM) 5 MG TabletIndications: Spasm of muscle TAKE 1/2 TO ONE TABLET [...] 0 04/30/2016 Active dicyclomine (BENTYL) 10 MG CapsuleIndications :Irritable bowel syndrome with both constipation and diarrhea Take 1 Cap by mouth 4 times a day as needed for Cramping. For abdominal pain 120 Cap 5 10/13/2016 Active Cholecalciferol (VITAMIN D-3) 1000 units Capsule Take by mouth. 0 Active [place] 3 1200 MG CAPS 0 Active Biotin 1 MG Capsule 0 Active Ascorbic Acid (VITAMIN C) 1000 MG Tablet Take 1 Tablet by mouth in the morning. 0 Active fluticasone (FLONASE) 50 MCG/ACT nasal sprayIndications:P ost-nasal drip,Cough Administer 2 Sprays into each nostril daily. 1 Inhaler 5 05/18/2017 Active MEDICAL INSTRUCTIONS Use as directed. Bi-Est estrogen cream --apply cream to arm every other day 0 Active acetaminophen (TYLENOL EXTRA STRENGTH) 500 MG Tablet Take 500 mg by mouth every 6 hours as needed [...] 0 Active dilTIAZem HCl (CARDIZEM OINTMENT) 2% [place] GEL Administer into the rectum 3 times [...] 50 MG Oral Tablet (Ultram) 0 03/15/2021 Active Aspirin-Caffeine 500-32.5 MG Oral Tablet Take by mouth . 0 Active Donepezil HCl 10 MG Oral Tablet Take 1 Tablet by mouth in the morning. Take with largest meal of the day.. 0 Active Cephalexin 500 MG Oral Capsule (Keflex) Take 1 Capsule by mouth in the morning and 1 Capsule before bedtime. Do all this for 7 days. 14 Capsule 0 06/27/2022 07/04/2022 Active documented as of this encounter (statuses as of 06/27/2022) Active Problems Problem Noted Date Prediabetes 08/08/2017 [...] as of this encounter (statuses as of 06/27/2022) Resolved Problems Problem Noted Date Resolved Date Encounter for examination fo r normal comparison and control in clinical research program 08/28/2017 10/21/2019 Overview: DO NOT DELETE [facility] DETECT Study: Project # [id number], Television Anchor: Jace Arrington, PhD. SUMMARY: Goal: Establish test [...] contact study staff at ; after hours Television Anchor via the [facility] hospital dishtank operator . Please contact study team before resolving/deleting from patients problem list. Study phone number: [phone]. Diagnosis changed due to Research Module. Go to Snapshot for study details. Encounter for examination fo r normal comparison and control in clinical research program 08/28/2017 11/18/2021 Overview: DO NOT DELETE - [facility] DETECT Study: Project # [id number], Television Anchor: Nando Villeda, MS, MPH. SUMMARY: Goal: Establish [...] contact study staff at ; after hours Television Anchor via the [facility] hospital dishtank operator . - Please contact study team before resolving/deleting from patients problem list. Study phone number: [phone]. Diagnosis changed due to Research Module. Go [...] as of this encounter (statuses as of 06/27/2022) Immunizations Name Administration Dates Next Due PPD [...] Pressure - - Pulse - - Temperature 36.2 °C (97.1 °F) 06/27/2022 10:42 AM E DT Respiratory Rate - - Oxygen Saturation - - Inhaled Oxygen Concentration - - Weight 70.5 kg (155 lb 6.4 oz) 06/27/2022 10:42 AM EDT Height - - Body Mass Index 26.67 02/12/2020 2:00 PM EST documented in this encounter Progress Notes * Jayson Holliday MD - 06/27/2022 10:59 AM EDT History: Laurel Rios is a 82 year old year old patient seen at the request for consultation by Dr. Posey for evaluation and management of BCC, right upper cutaneous lip. No outpatient medications have been marked as taking for the 06/27/22 encounter (Office Visit) with Jayson Holliday MD. Review of patient's allergies indicates: Allergen Reactions • Prednisone Other (Please comment) Urinary incontinence ROS: The patient feels generally well and has no other skin complaints. Exam: Patient is alert, oriented and in no distress. Exam is of the skin and mucosa of lip. The patient is alert and oriented and appears generally well. The patient's skin is remarkable for an atrophic healing biopsy site measuring 0.8 cm. (site confirmed with photo taken at time of biopsy). Impression: 1. BCC, right upper cutaenous lip Plan: 1. Plan for Mohs surgery today. Risks, benefits and alternatives discussed with patient. Risks suchas (but not limited to) scar, infection, bleeding, hematoma, and recurrence disussed. Questions answered. Informed consent form discussed and signed. Photograph obtained of lesion for medical record. Patient identified, procedure verified, site identified and verified. Time out completed. Surgical removal of the lesion discussed with the patient (risks and benefits, including possibility of scarring, infection, recurrence or potential for further treatment). I have specifically identified the site with the patient. I have discussed the fact that the patient will have a scar after the procedure regardless of granulation or repair with sutures. I have discussed that the repair options can range from granulation in some cases to linear or curvilinear closures to larger flaps or grafts. There are sometimes flaps or grafts used that require multiplestages of surgery and will not be completed today , rather be completed over a series of appointments. I have discussed that occasionally due to location , size or depth of the lesion I may recommend consultation with and transfer of care for further removal or the the reconstruction to another provider such as ophthalmology surgery , plastic surgery, ENT surgery or surgical oncology. Thereare cases in which other testing such as imaging with MRI or CT scan or testing of lymph nodes is recommended because of the nature/ depth/ location of tumor seen during the removal. There is a risk of injury to nerves causing temporary or permanent numbness or the inability to move muscles fullysuch as the inability to lift eyebrows. Questions answered and verbal and written consent was obtained. Post-op antibiotics started (Cephalexin). Mohs resection today. Tumor cleared in 2 stages . Repaired with primary complex closure. See operative report for complete details. Mireille Holliday MD Associate, Department of Dermatology documented in this encounter Nursing Notes * Catie Blackwell LPN - 06/27/2022 10:44 AM EDT Chief Complaint Patient presents with • Mohs Surgery Right upper cutaneous Referral Doctor: Lee Hypertension History: Yes, refer to medication information for treatment. Diabetes History: No Thyroid History: No Bleeding Tendency: No Artificial Valve or Joint: No Pacemaker: no Defibrillator: no Hepatitis/HIV Exposure: No Smoking: no Consent signed yes documented in this encounter Plan of Treatment Upcoming Encounters Date Type Specialty Care Team Description 07/04/2022 Nurse Only Dermatology [place], Nurse Scenery [address] [place] [address] Scheduled Procedures Name Priority Associated Diagnoses Date/Ti me COLONOSCOPY FLEXIBLE PROXIMAL DIAGNOSTIC Recall History of colon polyps Health Maintenance Due Date Last Done Comments Zoster Vaccines (2 of 3) 05/15/2007 03/20/2007 Albumin/Creatinine Ratio 01/18/2018 01/18/2017 GFR - Renal Function 03/02/2018 08/31/2017, 07/29/2017, 11/14/2016, Additional history exists CKD HGB USE SMARTSET 39080 07/29/201807/29, 03/31/2016, 08/05/2015, Additional history exists CKD PHOS USE SMARTSET 60317 07/29/201807/18, 03/31/2016, 08/06/2014 Depression Screening, Annual for [...] as of this encounter Visit Diagnoses Diagnosis BCC (basal cell carcinoma), lip- Primary Basal cell carcinoma of skin of lip documented in this encounter Care Teams Industrial Hire Sales Assistant Relationship Specialty Start Date End Date Deja Oseguera CRNP [address] [place] [address] PCP - General Nurse Practitioner 12/24/20 documented as of this encounter
--- OUTSIDE RECORDS SUMMARY | 2022-12-12 21:44 | External Medical Summary | Summary of Care ---
Author Name Unknown Organization [facility] Address [address] [place] [address] Phone [phone] Care Team Providers Care Phytopathology Teacher Name Role Phone Deja Oseguera Primary Care Provider Reason for Visit * Reason Comments Suture Removal Pt here today for manzo ture removal to upper lip. Encounter Details Date Type Department Care Team Description 07/04/2022 Nurse Only MOHS Surgery [facility] [address] [place] [address] Naye HERNANDEZ, Nurse Scenery [address] [place] [address] Suture Removal (Pt here today for suture r... Allergies Active Allergy Reactions Severity Noted Date Comments Prednisone Other (Please comment) 12/22/2016 Urinary incontinence documented as of this encounter (statuses as of 07/04/2022) Medications Medication Sig Dispensed Refills Start Date [...] 11 05/14/2015 Active PARoxetine (PAXIL) 30 MG TabletIndications:A djustment disorder with depressed mood,Posttraumatic stress disorder Take 1 Tab by mouth daily. 90 Tab 3 05/14/2015 Active diazepam (VALIUM) 5 MG TabletIndications:S pasm of muscle TAKE 1/2 TO ONE TABLET [...] 0 04/30/2016 Active dicyclomine (BENTYL) 10 MG CapsuleIndications: Irritable bowel syndrome with both constipation and diarrhea Take 1 Cap by mouth 4 times a day as needed for Cramping. For abdominal pain 120 Cap 5 10/13/2016 Active Cholecalciferol (VITAMIN D-3) 1000 units Capsule Take by mouth. 0 Active [place] 3 1200 MG CAPS 0 Active Biotin 1 MG Capsule 0 Activ e Ascorbic Acid (VITAMIN C) 1000 MG Tablet Take 1 Tablet by mouth in the morning. 0 Active fluticasone (FLONASE) 50 MCG/ACT nasal sprayIndications:Po st-nasal drip,Cough Administer 2 Sprays into each nostril [...] 0 Active dilTIAZem HCl (CARDIZEM OINTMENT) 2% OR GEL Administer into the rectum 3 times [...] as of this encounter (statuses as of 07/04/2022) Active Problems Problem Noted Date Prediabetes 08/08/2017 Overview: Per Prediabetes protocol #1 HTN, goal below 140/90 01/18/2017 Benign hypertension with CKD (chronic ki dney disease) stage III 01/18/2017 LVH (left ventricular hypert rophy) due to hypertensive disease, without heart failure 01/18/2017 Hx of nonmelanoma skin cancer 12/01/2011 Overview: BCC Posterior neck 11/2011, L forehead 2010, nose in distant past Depression 08/16/2002 GENERALIZED ANXIETY DIS 08/16/2002 Irritable bowel syndrome 08/16/2002 Overview: Constipation dominant Hypothyroidism 07/29/2002 Dyslipidemia, goal LDL below 130 Overview: on red yeast rice in place of statin BONE & CARTILAGE DIS NOS - Osteopenia Overview: osteopenia Posttraumatic stress disorder Overview: sees Psychologist Vitamin D deficiency documented as of this encounter (statuses as of 07/04/2022) Resolved Problems Problem Noted Date Resolved Date Encounter for examination fo r normal comparison and control in clinical research program 08/28/2017 10/21/2019 Overview: DO NOT DELETE [email or web address] DETECT Study: Project # [id number], Hedge Fund Manager: Jace Arrington, PhD. SUMMARY: Goal: Establish [...] contact study staff at ; after hours Hedge Fund Manager via the [facility] warehouse operator . Please contact study team before resolving/deleting from patients problem list. Study phone number: [phone]. Diagnosis changed due to Research Module. Go to Snapshot for study details. Encounter for examination fo r normal comparison and control in clinical research program 08/28/2017 11/18/2021 Overview: DO NOT DELETE - [employer] DETECT Study: Project # [id number], Hedge Fund Manager: Nando Villeda, MS, MPH. SUMMARY: Goal: [...] contact study staff at ; after hours Hedge Fund Manager via the [facility] warehouse operator . - Please contact study team before resolving/deleting from patients problem list. Study phone number: [phone]. Diagnosis changed due to Research Module. Go [...] as of this encounter (statuses as of 07/04/2022) Immunizations Name Administration Dates Next Due PPD [...] on file documented as of this encounter Nursing Notes * Deanna Avila LPN - 07/04/2022 3:[address] Alex in to see pt regarding bruising concerns. Deanna Avila LPN 07/04/2022 3:01 PM * Deanna Avila LPN - 07/04/2022 2:50 PM EDT Chief Complaint Patient presents with • Suture Removal Pt here today for suture removal to upper lip. Patient presents for suture removal in the area of Upper lip. No signs of infection noted, though Pt complains of bruising around area. Sutures removed without difficulty. Pt encouraged to wash area with soap and water, encouraged to leave open to air. Pt verbalizes understanding. Deanna Avila LPN 07/04/2022 2:53 PM documented in this encounter Plan of Treatment Upcoming Encounters Date Type Specialty Care Team Description 07/12/2022 Office Visit Pain Medicine Cousins, Ryder Machado DO [address] [place] [address] Scheduled Procedures Name Priority Associated Diagnoses Date/Ti me COLONOSCOPY FLEXIBLE PROXIMAL DIAGNOSTIC Recall History of colon polyps Health Maintenance Due Date Last Done Comments Zoster Vaccines (2 of 3) 05/15/2007 03/20/2007 Albumin/Creatinine Ratio 01/18/2018 01/18/2017 GFR - Renal Function 03/02/2018 08/31/2017, 07/29/2017, 11/14/2016, Additional history exists CKD HGB USE SMARTSET 98680 07/29/201807/29, 03/31/2016, 08/05/2015, Additional history exists CKD PHOS USE SMARTSET 56993 07/29/201807/18, 03/31/2016, 08/06/2014 Depression Screening, Annual for [...] filedocumented as of this encounter Care Teams Phytopathology Teacher Relationship Specialty Start Date End Date Deja Oseguera CRNP [address] [place] [address] PCP - General Nurse Practitioner 12/24/20 documented as of this encounter
--- OUTSIDE RECORDS SUMMARY | 2022-12-12 21:44 | External Medical Summary | Summary of Care ---
Author Name Unknown Organization [facility] Address [address] [place] [address] Phone [phone] Care Team Providers Care Arrow Point Attacher Name Role Phone Deja Oseguera Primary Care Provider Reason for Visit * Reason Comments Suture Removal Pt here today for manzo ture removal to upper lip. Encounter Details Date Type Department Care Team Description 07/04/2022 Nurse Only MOHS Surgery [facility] [address] [place] [address] Naye HERNANDEZ, Nurse Scenery [address] [place] [address] Suture Removal (Pt here today for suture [...] units Capsule Take by mouth. 0 Active [place] 3 1200 MG CAPS 0 Active Biotin [...] 0 Active dilTIAZem HCl (CARDIZEM OINTMENT) 2% [place] GEL Administer into the rectum 3 times [...] program 08/28/2017 10/21/2019 Overview: DO NOT DELETE [email or web address] DETECT Study: Project # [id number], Citizenship Teacher: Jace Arrington, PhD. SUMMARY: Goal: Establish test [...] contact study staff at ; after hours Citizenship Teacher via the [facility] sand screener operator . Please contact study team before resolving/deleting from patients problem list. Study phone number: [phone]. Diagnosis changed due to Research Module. Go to Snapshot for study details. Encounter for examination fo r normal comparison and control in clinical research program 08/28/2017 11/18/2021 Overview: DO NOT DELETE - [employer] DETECT Study: Project # [id number], Citizenship Teacher: Nando Villeda, MS, MPH. SUMMARY: Goal: Establish [...] contact study staff at ; after hours Citizenship Teacher via the [facility] sand screener operator . - Please contact study team before resolving/deleting from patients problem list. Study phone number: [phone]. Diagnosis changed due to Research Module. Go [...] Team Description 07/12/2022 Office Visit Pain Medicine Ryder Curry DO [address] [place] [address] 08/16/2022 Office Visit Dermatology Jayson Holliday MD [address] [facility] [place] [address] Scheduled Procedures Name Priority Associated Diagnoses Date/Ti me COLONOSCOPY FLEXIBLE PROXIMAL DIAGNOSTIC Recall History of colon polyps Health Maintenance Due Date Last Done Comments Zoster Vaccines (2 of 3) 05/15/2007 03/20/2007 Albumin/Creatinine Ratio 01/18/2018 01/18/2017 GFR - Renal Function 03/02/2018 08/31/2017, 07/29/2017, 11/14/2016, Additional history exists CKD HGB USE SMARTSET 64336 07/29/201807/29, 03/31/2016, 08/05/2015, Additional history exists CKD PHOS USE SMARTSET 60601 07/29/201807/18, 03/31/2016, 08/06/2014 Depression Screening, Annual for [...] filedocumented as of this encounter Care Teams Arrow Point Attacher Relationship Specialty Start Date End Date Deja Oseguera CRNP [address] [place] [address] PCP - General Nurse Practitioner 12/24/20 documented as of this encounter
--- OUTSIDE RECORDS SUMMARY | 2022-12-12 21:44 | External Medical Summary | Continuity of Care Document ---
Author Name Unknown Organization [address] [id number] Care Team Providers Care Stamp Analyst Name Role Phone Deja Oseguera Primary Care Physician [phone] [id number] Date(s): 06/23/22 - 06/23/[address] [facility] [address] [address] [phone] Encounter Diagnosis Right hip pain(Discharge Diagnosis) - 06/23/22 Balance problems(Discharge Diagnosis) - 06/23/22 Heart murmur(Discharge Diagnosis) - 06/23/22 Hyperhidrosis(Discharge Diagnosis) - 06/23/22 Discharge Disposition: Home or Self Care Attending Physician: MARY Oseguera Jill Nicole Allergies, Adverse Reactions, Alerts Substance Reaction Severity Status predniSONE severe depression Mild Active Assessment and Plan Extracted from: Title:Office Visit Note Author:MARY Oseguera Ji ll Nicole Date:06/23/22 1. Right hip pain XR right hip continue with Dr. Curry/ortho relative rest ice/heat fall precautions consider PT if imaging is OK 2. Balance problems see above 3. Heart murmur discussed echocardiogram results today continue to monitor 4. Hyperhidrosis she is already established with derm who is prescribing her medications for this she will reach out to them to discuss this continue to monitor Immunizations Given and Recorded Vaccine Date Status Refusal Reason SARS-CoV-2 mRNA (tozinameran 5y-11y) 10/01/21 Sanjeev rded zoster vaccine, inactivated [...] vaccine live 8 03/20/07 [facility]ed [facility] Comment: 2021-05-13: Historical information-source [...] Refills: 3, TAKE 1 TABLET DAILY, Pharmacy: [facility] Start Date: 09/06/21 Status: Ordered Vitamin D3 5000 intl units oral capsule Start: 11/07/17 14:30:00 EDT Start Date: 11/07/17 Status: Ordered Zanaflex 4 mg oral tablet Start: 11/09/15 15:42:00, 1 tab, PO, q8h, Disp# 90 tab, Refills: 2, Begin with a half tablet and advance to a full tablet as tolerated, Pharmacy: [id number] Start Date: 11/09/15 Stop Date: 02/07/16 Status: Ordered Mental Status 06/23/22 Barriers to Learning one year None evide nt Mandatory Health Literacy Documentation Yes Health Literacy Communication Barriers N ever Primary Language Nepali Problem List Condition Confirmation Course Effective Dates [...] Effective Dates Health Status Clinical Service Informant Right hip pain Discharge Diagnosis 06/23/22 Heart murmur Discharge Diagnosis 06/23/22 Balance problems Discharge Diagnosis 06/23/22 Hyperhidrosis Discharge Diagnosis 06/23/22 Procedures Procedure Date Related Diagnosis Body Site Status Hip X-ray 1 06/23/22 Completed Bone density scan 2, 3 01/07/22 Co mpleted Mammogram 4 01/07/22 Completed MRI 5 01/12/21 Completed MRI of lumbar spine 6 08/13/20 Com pleted Mammogram 7 12/23/19 Completed Mammogram 8 12/19/18 Completed Bone density scan 9 10/23/18 Compl eted MRI 10 05/30/[address] of cervical spine 11 04/24/18 C ompleted Colonoscopy 12 12/29/16 Completed ankle bimalleolar fracture ORIF 01/08/09 Completed Biopsy of breast 1991 Compl eted Cholecystectomy 1990 Completed hysterectomy 1986 Completed tonsillectomy 1946 Completed Cataract Completed Mammogram - screening 14 Completed 1Degenerative changes without evidence of acute abnormality. 210 year probability of fracture: Major Osteoporotic: 25.2% Hip: 7.6% Population: [place]() Based on DualFemur (right) Neck BMD 3Recommended follow up DEXA 01/11/24. 4IMPRESSION: ACR BI-RADS CATEGORY 2: BENIGN There is no mammographic evidence of malignancy. A 1 year screening mammogram is recommended. (01-08-2023) The patient will receive written notification of the results. 5IMPRESSION: 1.No significant change in severe multilevel neural foraminal stenosis since MRI April. This is detailed above. 2.Normal cervical cord signal and caliber. 3.Mild multilevel central canal stenosis which is similar to prior exam. 6impression 1. Multilevel degenerative changes most severe at L5-S1 also associated with grade 1 anterolisthesus of L5 on S1 7ACR BI RADS CAT 0. Need addtl imaging. 8There is no mammographic evidence of malignancy. A 1 year screening mammogram is recommended. 9T-score: -1.9 101. Severe multilevel neural foraminal stenosis, as detailed above, predominantly due to facet arthrosis and uncovertebral hypertrophy 2. Mid multilevel central canal stenosis due to disc bulges with disc osteophyte complexes. Normal cervical cord signal and caliber. 11no acute fracture or subluxation multilevel discogenic changes and facet arthrosis as above 12Adenomatous polyp - repeat 5 years. 13benign 14Impression: There is no mammographic evidence of malignancy. A 1 year screening mammogram is recommended. (01/06/2022) The patient will receive written notification of the results. Vital Signs Most recent to oldest [Reference Range]: 1 Patient Weight 69.7 kg (06/23/22 10:40 AM) Heart Rate 82 bpm (06/23/22 10:40 AM) Respiratory Rate 16 br/min (06/23/22 10:40 AM) Blood Pressure 126/60mmHg (06/23/22 10:40 AM) Cuff Pulse Pressure 66 mmHg (06/23/22 10:40 AM) Social History Social History Type Response Tobacco 1 Smoking Status Never smoked cigaret chung Sex Female 1quit 1987 [facility] Outpt Note * MARY Oseguera Jill Nicole: PERFORM Event Display: [facility] Outpt Note Authored Date: [id number] Chief Complaint echo results, sweats alot and would like a cream for the sweating rather than a pill. rigt hip is bothering her. would like an x-ray. not her SI joint. History of Present Illness Pat is an 82 year old female who presents today to follow up echocardiogram results. She states she received shot for her SI joint from Dr. Curry. She notes she might have hit her hip after and she has increased pain with ambulation. She notes she does ok if she holds on to a cart but otherwise her balance gets off. She called Dr. Curry who said she should follow up here. She does not feel like this is her SI joint. She denies any numbness, tingling, or increased weakness. She does feel like she is off balance sometimes. Increased sweating. She states she was at the [employer] shop in [place] where they didn't' have AC. When she left she was very sweaty and had to "peel her clothes off." She notes it is mainly her armpits and under her bra. She has a follow up with capsule filling machine operator. Review of Systems Constitutional: Denies fever, chills, sweats, weakness, fatigue, decreased activity, feeling hot orcold, malaise, appetite loss, weight loss or gain. Eye: Denies recent visual problems, blurring, double vision, dry eyes ENMT: Denies dysphagia, sinus pain, sore throat, taste disturbances. Denies decreased hearing, ear pain, ear discharge, nasal discharge. Respiratory: Denies SOB, cough, sputum production, wheezing CV: denies chest pain, palpitations, bradycardia, tachycardia GI: denies n/v/d, constipation, heartburn, abdominal tenderness, change in bowel habits : denies dysuria, hematuria, excessive urination, incontinence, retention, or urgency. Heme/lymph: denies swollen lymph glands or swollen extremities. Endocrine: denies excessive thirst, polyuria, cold or heat intolerance, or hypoglycemia Immunologic: denies recurrent fevers, recurrent infections, or malaise MS: denies muscle or joint pain, decreased range of motion Integumentary: Denies rash, dryness, or skin lesions Neurologic: denies altered mental status, gait disturbance Physical Exam Vitals & Measurements HR: 82 (Monitored) RR: 16 BP: 126/60 SpO2: 98% WT: 69.700 kg (Dosing) WT: 69.7 kg PHQ2 Data (Data Documented on:06/23/2022 10:40) Emotional health assessment NEGATIVE General: alert and oriented, no acute distress Eye: PERRL, EOMI, normal conjunctiva, vision unchanged HENT: normocephalic, TM’s clear, normal hearing, moist oral mucosa Neck: supple, non-tender, no thyromegaly Resp: Lungs CTA, non-labored respirations, BS equal, symmetrical expansion CV: normal rate and rhythm, no murmur, no gallop, good pulses equal in all extremities, normal peripheral perfusion, no edema GI: soft, non-tender, non-distended, normal bowel sounds, no organomegaly Lymphatics: no lymphadenopathy neck MS: normal ROM, normal strength, no tenderness, normal gait Integumentary: warm, dry, pink, no cyanosis, intact, moist, no pallor, no rash Neurologic: alert and oriented Psychiatric: calm and cooperative, appropriate mood and affect Assessment/Plan 1. Right hip pain XR right hip continue with Dr. Curry/ortho relative rest ice/heat fall precautions consider PT if imaging is OK 2. Balance problems see above 3. Heart murmur discussed echocardiogram results today continue to monitor 4. Hyperhidrosis she is already established with derm who is prescribing her medications for this she will reach out to them to discuss this continue to monitor Attestation A total of 44 minutes were spent on direct patient care, documentation, orders, and chart review. Problem List/Past Medical History Ongoing Ankle fracture Arm pain, left Cervical spinal stenosis Cervical spondylosis Chronic myofascial pain [place]one CTS (carpal tunnel syndrome) Excessive sweating Foot pain Fracture of phalanx [...] left Toe pain, left Upper back pain Historical No qualifying data Procedure/Surgical History •Bone density scan (01/07/2022)•Mammogram (01/07/2022)•MRI (01/12/2021)•MRI of lumbar spine(08/13/2020)•Mammogram (12/23/2019)•Mammogram (12/19/2018)•Bone density scan (10/23/2018)•MRI (05/30/2018)•CT of cervical spine (04/24/2018)•Colonoscopy (12/29/2016)•ankle bimalleolar fracture ORIF (01/08/2009)•Biopsy of breast (1991)•Cholecystectomy (1990)•hysterectomy (1986)•tonsillectomy (1946)•Cataract•Mammogram - screening Medications ascorbic acid, 1000 mg, Daily biotin, 1 mg diazepam 5 mg oral tablet, 5 mg= 1 tab, PO, tid, PRN DULoxetine 30 mg oral delayed release capsule, 1 - 2 cap, PO, Daily gabapentin 100 mg oral capsule, 100 mg= 1 cap, PO, tid glycopyrrolate 1 mg oral tablet glycopyrrolate 1 mg oral tablet MiraLax Paxil 30 mg oral tablet, 30 mg= 1 tab, PO, Daily red yeast rice 600 mg oral capsule, 1200 mg= 2 cap, PO, Daily Restasis, 1 drop, both eyes, bid unknown medication valsartan 80 mg oral tablet, See Instructions Vitamin D3 5000 intl units oral capsule Zanaflex 4 mg oral tablet, 4 mg= 1 tab, PO, q8h, 2 refills Allergies predniSONE (severe depression) Social History Smoking Status Never smoked cigarettes [...] Hypertension: Mother. Prostate carcinoma: Father. Stroke: Unknown. Immunizations Vaccine Date Status SARS-CoV-2 mRNA (tozinameran 5y-11y) 10/01/2021 Recorded zoster vaccine, inactivated 09/01/2021 Given influenza virus vaccine, inactivated 12/22/2020 Given SARS-CoV-2 (COVID-19) mRNA BNT-162b2 vax 05/15/2020 Recorded Comments : 2021-05-13: Historical information-source unspecified SARS-CoV-2 (COVID-19) mRNA BNT-162b2 vax 04/24/2020 Recorded Comments : 2021-05-13: Historical information-source unspecified influenza virus vaccine, inactivated 12/16/2019 Recorded Comments : [facility] influenza virus vaccine, inactivated 12/21/2018 Recorded [...] Maintenance Pending (in the next year) OverDue Adult Influenza Vaccine due 09/17/21 and every 1 year Due Adult COVID-19 Vaccination due 06/23/22 Unknown Frequency Adult Tdap/Td Vaccine due 06/23/22 Unknown Frequency Falls Plan of Care due 06/23/22 Unknown Frequency Shingles Vaccine due 06/23/22 One-time only Due In Future Medicare Annual Wellness Visit not due until 09/01/22 and every 1 year Body Mass Index not due until 06/23/23 and every 1 year Satisfied (in the past 1 year) Satisfied Body Mass Index on 09/01/21. Satisfied by CHASE Yancey Keira Lipid Screening on 05/04/22. Satisfied by Contributor_system, [id number] Medicare Annual Wellness Visit on 09/01/21. Satisfied by SYSTEM Electronic Signature on File Electronically Reviewed/Signed by: MARY Angel Author Signature Dt/Tm:06/23/2022 01:16 PM Department of Family Medicine S Patient Care team information Care Team Personnel Name: MARY Oseguera Jill Nicole Position: Nurse Pract - Family Med Member Role: Primary Care Provider Address: Address: [address] [place] [address], [place] [address] [place] Care Team Related Persons Name: IVON OMALLEY Address: home [address] [place], [place] [address], [place] [id number] Name: DC BUSTAMANTE Address: home No Address Provided
--- OUTSIDE RECORDS SUMMARY | 2022-12-12 21:44 | External Medical Summary | Summary of Care ---
Author Name Unknown Organization [facility] Address [address] [facility] [place] [address] Phone [phone] Care Team Providers Care Director Meetings Name Role Phone Deja Oseguera Primary Care Provider Reason for Visit * Auth/Cert Specialty Diagnoses / Procedures Referred By Yonny t Referred To Contact Diagnoses Spinal stenosis of lumbar region with neurogenic claudication Spinal stenosis of lumbar region with neurogenic claudication [M48.062] Procedures INJECT DX/THER SUBSTANCE INTERLAMINAR LUMBAR/SACRAL W IMAGE GUIDE INJECTION SPINE LUMBAR OR SACRAL Referral ID Status Reason Start Date Expiration Date Visits Re quested Visits Authorized [id number] Encounter Details Date Type Department Care Team Description 06/01/2022 Hospital Encounter OR [facility], Operating Room [facility] [address] [place] [id number] Ryder Curry DO [address] [place] [id number] Allergies Active Allergy Reactions Severity Noted Date Comments Prednisone Other (Please comment) 12/22/2016 Urinary incontinence documented as of this encounter (statuses as of 06/02/2022) Medications Medication Sig Dispensed Refills Start Date [...] units Capsule Take by mouth. 0 Active [place] 3 1200 MG CAPS 0 Active Biotin [...] 0 Active dilTIAZem HCl (CARDIZEM OINTMENT) 2% DC GEL Administer into the rectum 3 times [...] as of this encounter (statuses as of 06/02/2022) Active Problems Problem Noted Date Prediabetes 08/08/2017 [...] as of this encounter (statuses as of 06/02/2022) Resolved Problems Problem Noted Date Resolved Date Encounter for examination fo r normal comparison and control in clinical research program 08/28/2017 10/21/2019 Overview: DO NOT DELETE [facility] DETECT Study: Project # [id number], Pump Installer: Jace Arrington, PhD. SUMMARY: Goal: Establish test [...] contact study staff at ; after hours Pump Installer via the [facility] thermo cementing folder operator . Please contact study team before resolving/deleting from patients problem list. Study phone number: [phone]. Diagnosis changed due to Research Module. Go to Snapshot for study details. Encounter for examination fo r normal comparison and control in clinical research program 08/28/2017 11/18/2021 Overview: DO NOT DELETE - [facility] DETECT Study: Project # [id number], Pump Installer: Nando Villeda, MS, MPH. SUMMARY: Goal: Establish [...] contact study staff at ; after hours Pump Installer via the [facility] thermo cementing folder operator . - Please contact study team before resolving/deleting from patients problem list. Study phone number: [phone]. Diagnosis changed due to Research Module. Go [...] as of this encounter (statuses as of 06/02/2022) Immunizations Name Administration Dates Next Due PPD [...] Sign Reading Time Taken Comments Blood Pressure 173/67 06/01/2022 1:41 PM EDT Pulse 80 06/01/2022 1:41 PM EDT Temperature 36.9 °C (98.4 °F) 06/01/2022 1:21 PM ED T Respiratory Rate 15 06/01/2022 1:41 PM EDT Oxygen Saturation 98% 06/01/2022 1:41 PM EDT Inhaled Oxygen Concentration - - Weight - - Height - - Body Mass Index - - documented in this encounter Discharge Instructions * Discharge Instr - AVS* Ryder Curry DO - 06/01/2022 1:[address] [facility] [address] [place] [address] Discharge Date: 06/01/2022 You may call [facility] at [phone] during business hours. For after-hours emergencies call 911. Your attending physician at the time of your discharge was: Ryder Curry DO [address] [facility] [place] [address] The information below provides you with the [...] unless otherwise instructed by your family physician, tube winder or the anticoagulation clinic. Additional Instructions: Driving: . Date you may return to work or school: Follow Up: Call [phone] in 4 weeks. documented in this encounter Progress Notes * Ryder Curry DO - 06/01/2022 1:36 PM EDT [facility] [address] [address] OUTPATIENT SURGERY DISCHARGE SUMMARY NOTE Name: Laurel Rios Location: OR [facility]/MS Date: 06/01/2022 Time: 1:37 PM Surgery Date: 06/01/2022 Procedure: Procedure(s): INJECTION SPINE LUMBAR OR SACRAL No laterality found for procedure #1 Surgeon: Surgeon(s): Ryder Curry DO Discharge Diagnosis: Lumbar radicular pain After examination of this patient, I have determined she is ready for discharge to home when the patient meets criteria. Discharge instructions were given to the patient. documented in this encounter H&P Notes * Ryder Curry DO - 06/01/2022 7:07 AM EDT Interventional Pain Pre-Procedure Assessment Name:Laurel Rios Date:06/01/2022 Time:7:07 AM Procedure(s): · Caudal epidural steroid injection Diagnosis:Lumbar radicular pain Pre-Procedure Assessment: Prior to the [...] Discont. Donepezil HCl 10 MG Oral Tablet (Aricept) Take 1 Tablet by mouth in the [...] for pain. dilTIAZem HCl (CARDIZEM OINTMENT) 2% DC GEL Administer into the rectum 3 times [...] Tablet Take 1 Tab by mouth daily. acetaminophen (TYLENOL EXTRA STRENGTH) 500 MG Tablet Take 500 mg by mouth every 6 hours as needed for Pain. Patient not taking: Reported on 04/29/2021 MEDICAL INSTRUCTIONS Use as directed. Bi-Est estrogen cream --apply cream to arm every other day Patient not taking: Reported on 12/08/2021 fluticasone (FLONASE) 50 MCG/ACT nasal spray Administer 2 Sprays into each nostril daily. Ascorbic Acid (VITAMIN C) 1000 MG Tablet Take 1 Tablet by mouth in the morning. Biotin 1 MG Capsule Cholecalciferol (VITAMIN D-3) 1000 units Capsule Take by mouth. [place] 3 1200 MG CAPS dicyclomine (BENTYL) 10 MG Capsule Take 1 Cap by mouth 4 times a day as needed for Cramping. For abdominal pain DULoxetine (CYMBALTA) 20 MG CPEP 30 mg. gabapentin (NEURONTIN) 100 MG Capsule 2 Capsules. Take 3 times a day tiZANidine (ZANAFLEX) 4 MG Tablet Take 0.5 Tabs by mouth. Polyethylene Glycol 3350 17 GM/SCOOP [...] mouth daily. PROGESTERONE 1000 MG/60GM EX CREA apply once daily Patient not taking: RED YEAST RICE 600 MG PO CAPS 1 daily STOOL SOFTENER 100 MG PO TABS 1 tablet daily as needed for constipation Patient not taking: Review of patient's allergies indicates: No Known Allergies There were no vitals taken for this visit. Physical Exam: Mental Status Examination: alert and oriented. Airway Examination: normal oropharyngeal airway and neck mobility. Respiratory Examination: clear to auscultation. CV Examination: normal. ASA Grade: III - A patient with severe systemic disease. After reviewing the risks and benefits, the patient was deemed in satisfactory condition to undergothe procedure. The anesthesia plan was to use local anesthesia. Ryder Curry DO 06/01/2022 documented in this encounter Nursing Notes * Brenda Crowe RN - 06/01/2022 1:44 PM EDT Visited by Dr Curry. Verbalized understanding of discharge directions. Ready for discharge to home. * Zuleyma Morrison RN - 06/01/2022 1:36 PM EDT Band aid aplied to area patient transferred to pacu 11 via wheelchair * Zuleyma Morrison RN - 06/01/2022 1:32 PM EDT Patient tolerating pain management injection well. documented in this encounter OR Notes * OR Surgeon - Ryder Curry DO - 06/01/2022 1:37 PM EDT OPERATIVE RECORD OR [facility], Operating Room [facility] [facility] [address] Laurel Rios : 1940 DOS: 06/01/2022 SERVICE: INTERVENTIONAL PAIN MANAGEMENT PRE-OP DIAGNOSIS: Lumbar [...] spinal needle was directed with fluoroscopic guidance throughthe sacral hiatus, into the sacral canal without pain or paresthesia. After negative aspiration forblood or cerebrospinal fluid, Omnipaque 180, 0.5 cubic centimeter was easily injected, showed appropriate epidural spread in P-A and lateral fluoroscopic views. There was no evidence of intravascularor subarachnoid spread of contrast. Kenalog 40 mg with 5 cubic centimeters of preservative-free normal saline was slowly and easily injected without pain. There was appropriate washout of contrast. The needle was removed. Patient tolerated procedure well. Laurel Rios will be re-evaluated by one in approximately 4 weeks, and was given appropriate discharge instructions following postprocedure monitoring. Ryder Curry DO 06/01/2022 1:37 PM documented in this encounter Plan of Treatment Upcoming Encounters Date Type Specialty Care Team Description 06/27/2022 Office Visit Dermatology Jayson Holliday MD [address] [place] [address] Scheduled Procedures Name Priority Associated Diagnoses Date/Ti me COLONOSCOPY FLEXIBLE PROXIMAL DIAGNOSTIC Recall History of colon polyps Health Maintenance Due Date Last Done Comments Zoster Vaccines (2 of 3) 05/15/2007 03/20/2007 Albumin/Creatinine Ratio 01/18/2018 01/18/2017 GFR - Renal Function 03/02/2018 08/31/2017, 07/29/2017, 11/14/2016, Additional history exists CKD HGB USE SMARTSET 23267 07/29/201807/29, 03/31/2016, 08/05/2015, Additional history exists CKD PHOS USE SMARTSET 36250 07/29/201807/18, 03/31/2016, 08/06/2014 Depression Screening, Annual for Pts 12 and Over 08/11/2018 08/11/2017 HgA1C 08/24/2018 08/24/2017 DXA Scan 03/15/2019 03/15/2012 COVID-19 Vaccine (3 - Booster for Pfizer series) 07/10/2020 10/01/2021, 05/15/2020, 04/24/2020 Influenza Vaccine (FLU shot) (#1) 2021 12/16/2019, 12/21/2018, 12/21/2017, Additional history exists DTaP,Tdap,and Td Vaccines (2 - Td or Tdap) 12/19/2021 12/20/2011 COLONOSCOPY-EVERY 5 YRS AGES 18-100 12/29/2021 12/29/2016, 12/29/2016 Pneumococcal Vaccine: 65+ Years Completed [...] Comments FLUORO INTERVENTIONAL PAIN PROCEDURE NONBILLABLE Routine 06/01/2022 1:40 PM EDT documented in this encounter Results * FLUORO INTERVENTIONAL PAIN PROCEDURE NONBILLABLE (06/01/2022 1:40 PM EDT) Narrative Scheduling, Silent - 06/01/2022 1:41 PM EDT This procedure will not be read by a Radiologist. Please see operative note. Ryder Marshlexx Edwardsjuana DO RAD FLUOROSCOPY documented in this encounter Administered Medications Inactive Administered Medications - up to 3 most recent administrations Medication Order MAR Action Action Date Dose Rate Site Iohexol (Omnipaque 180) inj 0.5 mL 0.5 mL, Injection, ONCE, On Mon06/01/22 at 1345, For 1 dose Given 06/01/2022 1:33 PM EDT 0.5 mL lidocaine 1 % inj 20 mg 20 mg (2 mL), Subcutaneous, ONCE, On Mon06/01/22 at 1345, For 1 dose Given 06/01/2022 1:31 PM EDT 20 mg Other -Specify Triamcinolone Acetonide (Kenalog) 40 MG/ML inj 40 mg 40 mg, Injection, ONCE, On Mon06/01/22 at 1345, For 1 dose Given 06/01/2022 1:33 PM EDT 40 mg documented in this encounter Active and Recently Administered Medications Times are shown in EDT. Scheduled Medication Order 05/30/2022 05/31/2022 06/01/2022 Iohexol (Omnipaque 180) inj 0.5 mL (COMPLETED) 0.5 mL, Injection, ONCE, On Mon06/01/22 at 1345, For 1 dose 1333 (Given - Provid er: Zuleyma Morrison RN - Comment: CAUDAL) lidocaine 1 % inj 20 mg (COMPLETED) 20 mg (2 mL), Subcutaneous, ONCE, On Mon06/01/22 at 1345, For 1 dose 1331 (Given - Provid er: Zuleyma Morrison RN - Comment: CAUDAL) Triamcinolone Acetonide (Kenalog) 40 MG/ML inj 40 mg (COMPLETED) 40 mg, Injection, ONCE, On Mon06/01/22 at 1345, For 1 dose 1333 (Given - Provid er: Zuleyma Morrison RN - Comment: CAUDAL) documented in this encounter Care Teams Director Meetings Relationship Specialty Start Date End Date Deja Oseguera CRNP [address] [place] [id number] PCP - General Nurse Practitioner 12/24/20 documented as of this encounter
--- OUTSIDE RECORDS SUMMARY | 2022-12-12 21:44 | External Medical Summary | Summary of Care ---
Author Name Unknown Organization [facility] Address [address] [place] [address] Phone [phone] Care Team Providers Care Leather Scrubber Name Role Phone Deja Oseguera Primary Care Provider Reason for Visit * Reason Comments Mohs Surgery Right upper cutaneou s * Evaluate & Treat - Unlimited Visits (Within 30 days (routine)) - Authorized Specialty Diagnoses / Procedures Referred By Contac t Referred To Contact Dermatology Diagnoses BCC (basal cell carcinoma), lip Zachary Howard MD [address] [place] [address] Referral ID Status Reason Start Date Expiration Date Visits Requested Visits Authorized [id number] Authorized Specialty Services Required 04/18/2022 999 999 Encounter Details Date Type Department Care Team Description 06/27/2022 Office Visit MOHS Surgery [facility] [address] [place] [address] Jayson Holliday MD [address] [place] [address] BCC (basal cell carcinoma), lip* Allergies Active [...] units Capsule Take by mouth. 0 Active [place] 3 1200 MG CAPS 0 Active Biotin [...] 0 Active dilTIAZem HCl (CARDIZEM OINTMENT) 2% DE GEL Administer into the rectum 3 times [...] 08/28/2017 10/21/2019 Overview: DO NOT DELETE [facility] DETECT Study: Project # [id number], Public Relations Account Executive: Jace Arrington, PhD. SUMMARY: Goal: Establish test [...] contact study staff at ; after hours Public Relations Account Executive via the [facility] hospital vortex operator . Please contact study team before resolving/deleting from patients problem list. Study phone number: [phone]. Diagnosis changed due to Research Module. Go to Snapshot for study details. Encounter for examination fo r normal comparison and control in clinical research program 08/28/2017 11/18/2021 Overview: DO NOT DELETE - [facility] DETECT Study: Project # [id number], Public Relations Account Executive: Nando Villeda, MS, MPH. SUMMARY: Goal: Establish [...] contact study staff at ; after hours Public Relations Account Executive via the [facility] hospital vortex operator . - Please contact study team before resolving/deleting from patients problem list. Study phone number: [phone]. Diagnosis changed due to Research Module. Go [...] Dermatology [place], Nurse Scenery [address] [place] [address] Scheduled Procedures Name Priority Associated Diagnoses Date/Ti me COLONOSCOPY FLEXIBLE PROXIMAL DIAGNOSTIC Recall History of colon polyps Health Maintenance Due Date Last Done Comments Zoster Vaccines (2 of 3) 05/15/2007 03/20/2007 Albumin/Creatinine Ratio 01/18/2018 01/18/2017 GFR - Renal Function 03/02/2018 08/31/2017, 07/29/2017, 11/14/2016, Additional history exists CKD HGB USE SMARTSET 10766 07/29/201807/29, 03/31/2016, 08/05/2015, Additional history exists CKD PHOS USE SMARTSET 95625 07/29/201807/18, 03/31/2016, 08/06/2014 Depression Screening, Annual for [...] lip documented in this encounter Care Teams Leather Scrubber Relationship Specialty Start Date End Date Deja Oseguera CRNP [address] [place] [address] PCP - General Nurse Practitioner 12/24/20 documented as of this encounter
--- OUTSIDE RECORDS SUMMARY | 2022-12-12 21:44 | External Medical Summary | Summary of Care ---
Author Name Unknown Organization [facility] Address [address] [facility] [place] [address] Phone [phone] Care Team Providers Care Deli Worker Name Role Phone Deja Oseguera Primary Care Provider Reason for Visit * Reason Onset Date Comments Advice 06/22/2022 Encounter Details Date Type Department Care Team Description 06/22/2022 Telephone Inter[facility], [facility] [address] [place] [address] [place], [address] [place] [address] Advice Allergies Active Allergy Reactions Severity Noted Date Comments Prednisone Other (Please comment) 12/22/2016 Urinary incontinence documented as of this encounter (statuses as of 06/22/2022) Medications Medication Sig Dispensed Refills Start Date [...] units Capsule Take by mouth. 0 Active [place] 3 1200 MG CAPS 0 Active Biotin [...] as of this encounter (statuses as of 06/22/2022) Active Problems Problem Noted Date Prediabetes 08/08/2017 [...] as of this encounter (statuses as of 06/22/2022) Resolved Problems Problem Noted Date Resolved Date Encounter for examination fo r normal comparison and control in clinical research program 08/28/2017 10/21/2019 Overview: DO NOT DELETE [facility] DETECT Study: Project # [id number], Hat Former: Jace Arrington, PhD. SUMMARY: Goal: Establish test [...] contact study staff at ; after hours Hat Former via the [facility] hospital tapper operator . Please contact study team before resolving/deleting from patients problem list. Study phone number: [phone]. Diagnosis changed due to Research Module. Go to Snapshot for study details. Encounter for examination fo r normal comparison and control in clinical research program 08/28/2017 11/18/2021 Overview: DO NOT DELETE - [facility] Study: Project # [id number], Hat Former: Nando Villeda, MS, MPH. SUMMARY: Goal: Establish [...] contact study staff at ; after hours Hat Former via the [facility] hospital tapper operator . - Please contact study team before resolving/deleting from patients problem list. Study phone number: [phone]. Diagnosis changed due to Research Module. Go to Roomster for study details. Sciatica without lumbago 03/31/2016 [...] as of this encounter (statuses as of 06/22/2022) Immunizations Name Administration Dates Next Due PPD [...] Telephone Encounter - Dominique Walker LPN - 06/22/2022 9:12 AM EDT Patient called in stating leg pain and "dragging" , she believe she fell on her hip. Has appt with pcp tomorrow morning. Told her to keep that appt and if she has new imaging to let us know so we canobtain that. documented in this encounter Plan of Treatment Upcoming Encounters Date Type Specialty Care Team Description 06/27/2022 Office Visit Dermatology Jayson Holliday MD [address] [place] [id number] Scheduled Procedures Name Priority Associated Diagnoses Date/Ti me COLONOSCOPY FLEXIBLE PROXIMAL DIAGNOSTIC Recall History of colon polyps Health Maintenance Due Date Last Done Comments Zoster Vaccines (2 of 3) 05/15/2007 03/20/2007 Albumin/Creatinine Ratio 01/18/2018 01/18/2017 GFR - Renal Function 03/02/2018 08/31/2017, 07/29/2017, 11/14/2016, Additional history exists CKD HGB USE SMARTSET 86140 07/29/201807/29, 03/31/2016, 08/05/2015, Additional history exists CKD PHOS USE SMARTSET 53856 07/29/201807/18, 03/31/2016, 08/06/2014 Depression Screening, Annual for [...] filedocumented as of this encounter Care Teams Deli Worker Relationship Specialty Start Date End Date Deja Oseguera CRNP [address] [place] [address], [place] [address] PCP - General Nurse Practitioner 12/24/20 documented as of this encounter
--- OUTSIDE RECORDS SUMMARY | 2022-12-12 21:44 | External Medical Summary | Summary of Care ---
Author Name Unknown Organization [facility] Address [address] [facility] [place] [address] Phone [phone] Care Team Providers Care Credit Control Administrator Name Role Phone Deja Oseguera Primary Care Provider Encounter Details Date Type Department Care Team Description 06/23/2022 Orders Only Interventional Pain Center, [facility] [address] [place] [address] [address], [address] [place] [address] Allergies Active Allergy Reactions Severity Noted Date [...] units Capsule Take by mouth. 0 Active [place] 3 1200 MG CAPS 0 Acti ve [...] 0 Active dilTIAZem HCl (CARDIZEM OINTMENT) 2% MT GEL Administer into the rectum 3 times [...] 08/28/2017 10/21/2019 Overview: DO NOT DELETE [facility] DETECT Study: Project # [id number], Master Tax Advisor: Jace Arrington, PhD. SUMMARY: Goal: Establish test [...] contact study staff at ; after hours Master Tax Advisor via the [facility] rotary operator . Please contact study team before resolving/deleting from patients problem list. Study phone number: [phone]. Diagnosis changed due to Research Module. Go to Snapshot for study details. Encounter for examination fo r normal comparison and control in clinical research program 08/28/2017 11/18/2021 Overview: DO NOT DELETE - [facility] Study: Project # [id number], Master Tax Advisor: Nando Villeda, MS, MPH. SUMMARY: Goal: Establish [...] contact study staff at ; after hours Master Tax Advisor via the [facility] rotary operator . - Please contact study team before resolving/deleting from patients problem list. Study phone number: [phone]. Diagnosis changed due to Research Module. Go [...] 07/14/2022 Office Visit Dermatology Jayson Holliday MD [address] [place] [address] 08/16/2022 Office Visit Dermatology Jayson Holliday MD [address] [place] [address] Scheduled Procedures Name Priority Associated Diagnoses Date/Ti me COLONOSCOPY FLEXIBLE PROXIMAL DIAGNOSTIC Recall History of colon polyps Health Maintenance Due Date Last Done Comments Zoster Vaccines (2 of 3) 05/15/2007 03/20/2007 Albumin/Creatinine Ratio 01/18/2018 01/18/2017 GFR - Renal Function 03/02/2018 08/31/2017, 07/29/2017, 11/14/2016, Additional history exists CKD HGB USE SMARTSET 89082 07/29/201807/29, 03/31/2016, 08/05/2015, Additional history exists CKD PHOS USE SMARTSET 16558 07/29/201807/18, 03/31/2016, 08/06/2014 Depression Screening, Annual for [...] interpreted or resulted by a [facility] or [facility] contracted radiologist. Ryder Curry DO RADIOLOGY (RAD GEN ERAL) documented in this encounter Care Teams Credit Control Administrator Relationship Specialty Start Date End Date Deja Oseguera CRNP [address] [place] [id number] PCP - General Nurse Practitioner 12/24/20 documented as of this encounter
--- OUTSIDE RECORDS SUMMARY | 2022-12-12 21:44 | External Medical Summary | Continuity of Care Document ---
Author Name Unknown Organization [address] Address [address] [place] [id number] Care Team Providers Care Field Sales Trainer Name Role Phone Deja Oseguera Primary Care Physician [phone] [id number] Date(s): 06/06/22 - 06/06/[address] [facility] [address] [address] [phone] Encounter Diagnosis Fall(Discharge Diagnosis) - 06/06/22 Frequent urination(Discharge Diagnosis) - 06/06/22 Balance problem(Discharge Diagnosis) - 06/06/22 Elevated white blood cell count(Discharge Diagnosis) - 06/06/22 LVH (left ventricular hypertrophy)(Discharge Diagnosis) - 06/06/22 Mitral regurgitation(Discharge Diagnosis) - 06/06/22 Discharge Disposition: Home or Self Care Attending Physician: MARY Oseguera Jill Nicole Allergies, Adverse Reactions, Alerts Substance Reaction Severity Status predniSONE severe depression Mild Active Assessment and Plan Extracted from: Title:Office Visit Note Author:MARY Oseguera Ji ll Nicole Date:06/06/22 1. Fall repeat echo from 2020 - she would like this done at [facility] blood work/urine sample hydration rest she declines any physical therapy to help with gait she is agreeable to trying to use her walker consistently - she has one at home she will reach out to discuss changing medications with psychiatry as I am concerned these may be contributing to her falls. 2. Frequent urination UA/UC she feels like this is improving continue to monitor 3. Balance problem see above OK walking to and from room today 4. Elevated white blood cell count repeat blood work 5. LVH (left ventricular hypertrophy) repeat echocardiogram for any worsening findings consider referral to cardiology continue to monitor 6. Mitral regurgitation see above Immunizations Given and Recorded Vaccine Date Status [...] live 8 03/20/07 Recorded 1Result Comment: [facility] 2Result Comment: 2021-05-13: Historical information-source unspecified [...] 10/19/15 13:31:00 Start Date: 10/19/15 Status: Ordered Ames-3 oral capsule Start: 01/16/18 13:54:00 EDT, 1,200 [...] Refills: 3, TAKE 1 TABLET DAILY, Pharmacy: [facility] Start Date: 09/06/21 Status: Ordered Vitamin D3 5000 intl units oral capsule Start: 11/07/17 14:30:00 EDT Start Date: 11/07/17 Status: Ordered Zanaflex 4 mg oral tablet Start: 11/09/15 15:42:00, 1 tab, PO, q8h, Disp# 90 tab, Refills: 2, Begin with a half tablet and advance to a full tablet as tolerated, Pharmacy: [id number] Start Date: 11/09/15 Stop Date: 02/07/16 Status: Ordered Mental Status 06/06/22 Barriers to Learning one year None evide nt Mandatory Health Literacy Documentation Yes Health Literacy Communication Barriers N ever Primary Language [place] Problem List Condition Confirmation Course Effective Dates [...] Effective Dates Health Status Clinical Service Informant LVH (left ventricular hypertrophy) Discharge Diagnosis 06/06/22 Non-Specified Mitral regurgitation Discharge Diagnosis 06/06/22 Non-Specified Fall Discharge Diagnosis 06/06/22 Balance problem Discharge Diagnosis 06/06/22 Frequent urination Discharge Diagnosis 06/06/22 Non-Specified Elevated white blood cell count Discharge Diagnosis 06/06/22 Non-Specified Procedures Procedure Date Related Diagnosis Body Site Status Bone density scan 1, 2 01/07/22 Co mpleted Mammogram 3 01/07/22 Completed MRI 4 01/12/21 Completed MRI of lumbar spine 5 08/13/20 Com pleted Mammogram 6 12/23/19 Completed Mammogram 7 12/19/18 Completed Bone density scan 8 8/6/19 Compl eted MRI 9 05/30/[address] [...] to oldest [Reference Range]: 1 Patient Weight 69.5 kg (06/06/22 3:41 PM) Heart Rate 70 bpm (06/06/22 3:41 PM) Respiratory Rate 18 br/min (06/06/22 3:41 PM) Blood Pressure 146/70mmHg (06/06/22 3:41 PM) Cuff Pulse Pressure 76 mmHg (06/06/22 3:41 PM) Social History Social History Type Response Tobacco 1 Smoking Status Never smoked cigaret chung Sex Female 1quit 1987 Patient Care team information Personnel Name: MARY Oseguera Jill Nicole Address: Address: [address] [place] [address]
--- OUTSIDE RECORDS SUMMARY | 2022-12-12 21:44 | External Medical Summary | Summary of Care ---
Author Name Unknown Organization [facility] Address [address] [facility] [place] [address] Phone [phone] Care Team Providers Care Stonework Tracer Name Role Phone Deja Oseguera Primary Care Provider Reason for Visit * Reason Comments Back Pain Encounter Details Date Type Department Care Team Description 07/12/2022 Office Visit [facility], [facility] [address] [place] [address] [address], [address] [place] [address] Trochanteric bursitis of right hip* Allergies Active Allergy Reactions Severity Noted Date Comments Prednisone Other (Please comment) 12/22/2016 Urinary incontinence documented as of this encounter (statuses as of 07/12/2022) Medications Medication Sig Dispensed Refills Start Date [...] units Capsule Take by mouth. 0 Active Macy 3 1200 MG CAPS 0 Acti ve [...] 0 Active dilTIAZem HCl (CARDIZEM OINTMENT) 2% ME GEL Administer into the rectum 3 times [...] as of this encounter (statuses as of 07/12/2022) Active Problems Problem Noted Date Prediabetes 08/08/2017 [...] as of this encounter (statuses as of 07/12/2022) Resolved Problems Problem Noted Date Resolved Date Encounter for examination fo r normal comparison and control in clinical research program 08/28/2017 10/21/2019 Overview: DO NOT DELETE [facility] DETECT Study: Project # [id number], Behavioral Health Tech: Jace Arrington, PhD. SUMMARY: Goal: Establish test [...] contact study staff at ; after hours Behavioral Health Tech via the [facility] hospital waxing machine operator . Please contact study team before resolving/deleting from patients problem list. Study phone number: [phone]. Diagnosis changed due to Research Module. Go to Snapshot for study details. Encounter for examination fo r normal comparison and control in clinical research program 08/28/2017 11/18/2021 Overview: DO NOT DELETE - [facility] DETECT Study: Project # [id number], Behavioral Health Tech: Nando Villeda, MS, MPH. SUMMARY: Goal: Establish [...] contact study staff at ; after hours Behavioral Health Tech via the [facility] waxing machine operator . - Please contact study team before resolving/deleting from patients problem list. Study phone number: [phone]. Diagnosis changed due to Research Module. Go [...] as of this encounter (statuses as of 07/12/2022) Immunizations Name Administration Dates Next Due PPD [...] of this encounter Progress Notes * Ryder Curry, - 07/12/2022 3:33 PM EDT [facility] PROCEDURE NOTE Name: Laurel Rios Date: 07/12/2022 Time: 3:33 PM Location: [facility]: Pain Management Date of Procedure: 07/12/2022 Diagnosis: Right Trochanteric Bursitis Provider: Ryder Curry DO Procedure: Right Greater trochanteric bursa injection Estimated Blood Loss: None Urine output: None Drains/Implants: None Complications: None Co-morbid conditions: Past Medical History: Diagnosis Date • Benign hypertension with CKD (chronic kidney disease) stage III (HCC) 01/18/2017 • Cervicalgia due to muscle spasms [...] without heart failure I11.9 • Prediabetes R73.03 [place] [employer] Score: III She is stable with normal heart sounds and lungs clear to auscultation. Her airway is normal. ROM neck: decreased flexion and decreased extension She has no loose teeth Technique: Today, we discussed alternative plans, benefits and potential risks which include, but not limited to bleeding, infections, nerve damage, or failure of the procedure. She agreed to proceed with this procedure and an informed written consent was obtained. Time-out was taken to properly identify patient and injection sites. Following and sterile prep with ChloraPrep, I infiltrated the area the right greater trochanteric bursa with 2 mL of 0.25% preservative-free bupivacaine with 30 mg of triamcinolone using a 25 gauge spinal needle. She tolerated injection well without immediate complication. Disposition: She will be re-evaluated on an as-needed basis. Ryder Curry DO * Ryder Curry DO - 07/12/2022 3:30 PM EDT Name: Laurel Rios Date: 07/12/2022 HPI: Laurel Rios is a 82 year old female seen in the pain management clinic for re-evaluation. Shehad bumped her right lateral hip against an object about 4 weeks ago and has had soreness in right trochanteric region since that time. She states there was initially significant ecchymosis although this has improved. She is been using ice with little benefit. She is not having much in the way of radicular symptoms since her epidural steroid injection 5 weeks ago. She did see her primary care physician about the lateral hip pain in x-rays were taken at an outside facility and not available for review. Patient indicates that did show arthritic change but that there was no fracture. History: Past Medical History: Diagnosis Date • Benign hypertension with CKD (chronic kidney disease) stage III ([facility]) 01/18/2017 • Cervicalgia due to muscle [...] trigger point injections • Vitamin D deficiency Past Surgical History: Procedure Laterality Date • [...] performed by Ryder Curry, DO at [facility] • INJECT DX/THER SUBSTANCE INTERLAMINAR LUMBAR/SACRAL W IMAGE GUIDE 09/17/2020 INJECTION SPINE LUMBAR OR SACRAL performed by Ryder Curry, DO at [facility] • INJECT DX/THER SUBSTANCE INTERLAMINAR LUMBAR/SACRAL W IMAGE GUIDE 12/24/2020 INJECTION SPINE LUMBAR OR SACRAL performed by Ryder Curry, DO at [facility] • INJECT DX/THER SUBSTANCE INTERLAMINAR LUMBAR/SACRAL W IMAGE GUIDE 04/29/2021 INJECTION SPINE LUMBAR OR SACRAL performed by Ryder Carter Curry, DO at [facility] • INJECT DX/THER SUBSTANCE INTERLAMINAR LUMBAR/SACRAL W IMAGE GUIDE 08/04/2021 INJECTION SPINE LUMBAR OR SACRAL performed by Ryder Curry, DO at [facility] • INJECT DX/THER SUBSTANCE INTERLAMINAR LUMBAR/SACRAL W IMAGE GUIDE 12/08/2021 INJECTION SPINE LUMBAR OR SACRAL performed by Ryder Curry, DO at [facility] • INJECT DX/THER SUBSTANCE INTERLAMINAR LUMBAR/SACRAL W IMAGE GUIDE 06/01/2022 INJECTION SPINE LUMBAR OR SACRAL performed by Ryder Curry, DO at [facility] • LAPAROSCOPY; CHOLECYSTECTOMY 1991 Cholecystectomy, Laproscopic • REVISE UPPER EYELID 06/10/2010 both eyes upper lid blepharoplasties, Dr. Hu • TOTAL HYSTERECTOMY 1989 still has one ovary • TREAT ANKLE FRACTURE W/MANIPULATION Left surgical repair ankle fracture Current Outpatient Medications Medication Sig Dispense Refill [...] by mouth daily. 90 Tab 3 • Polyethylene Glycol 3350 17 GM/SCOOP Oral [...] (CYMBALTA) 20 MG CPEP 30 mg. • Cholecalciferol (VITAMIN D-3) 1000 units Capsule Take by mouth. • Macy 3 1200 MG CAPS • Biotin 1 MG Capsule • Ascorbic Acid (VITAMIN C) 1000 MG Tablet Take 1 Tablet by mouth in the morning. • fluticasone (FLONASE) 50 MCG/ACT nasal spray Administer 2 Sprays into each nostril daily. 1 Inhaler 5 • valsartan (DIOVAN) 80 MG Tablet Take [...] . • dilTIAZem HCl (CARDIZEM OINTMENT) 2% ME GEL Administer into the rectum 3 times a day. 30 g 3 • Aspirin 325 MG [...] Take with largest meal of the day.. • diazepam (VALIUM) 5 MG Tablet TAKE 1/2 TO ONE TABLET UP TO TWICE A DAY NEEDED FOR MUSCLE SPASM 180 Tab 1 • dicyclomine (BENTYL) 10 MG Capsule Take 1 Cap by mouth 4 times a day as needed for Cramping. For abdominal pain 120 Cap 5 • MEDICAL INSTRUCTIONS Use as directed. Bi-Est estrogen cream --apply cream to arm every other day • Acetaminophen 500 MG Oral Tablet Take 1 Tablet by mouth every 6 hours as needed for Pain. • Hydrocortisone (Perianal) 2.5 % External Cream (Anusol-HC) Administer into the rectum 2 times aday. 30 g 3 No current facility-administered medications for this visit. Review of patient's allergies indicates: Allergen Reactions • Prednisone Other (Please comment) Urinary incontinence Social History Tobacco Use Smoking Status Former • Types: Cigarettes • Quit date: 03/19/1988 • Years since quittin.3 Smokeless Tobacco Never Tobacco Comments quit 1987 Social History Substance and Sexual Activity Alcohol Use No PHYSICAL EXAM: There were no vitals taken for this visit. She can stand ambulate without gait abnormality. She has +5 over 5 motor function lower extremities. There are no gross sensory deficits noted. She has tenderness over the right trochanteric bursa which produces usual pain. There is no current ecchymosis. ASSESSMENT: Right trochanteric bursitis RECOMMENDATION: I offered to inject the right trochanteric bursa today to see if we could provide symptomatic improvement. Procedural risks including bleeding, infection, worsening pain, steroid side effects or failure were reviewed and accepted. She did wish to proceed in her injection note will be documented separately. Ryder Curry DO 07/12/2022 3:30 PM documented in this encounter Nursing Notes * Dominique Walker LPN - 07/12/2022 3:08 PM EDT Patient presents with right hip pain Unsure if there was an injury New xrays in chart documented in this encounter Plan of Treatment Upcoming Encounters Date Type Specialty Care Team Description 07/14/2022 Office Visit Dermatology Jayson Holliday MD [address] [place] [id number] 08/16/2022 Office Visit Dermatology Jayson Holliday MD [address] [place] [address] [address] Scheduled Procedures Name Priority Associated Diagnoses Date/Ti me COLONOSCOPY FLEXIBLE PROXIMAL DIAGNOSTIC Recall History of colon polyps Health Maintenance Due Date Last Done Comments Zoster Vaccines (2 of 3) 05/15/2007 03/20/2007 Albumin/Creatinine Ratio 01/18/2018 01/18/2017 GFR - Renal Function 03/02/2018 08/31/2017, 07/29/2017, 11/14/2016, Additional history exists CKD HGB USE SMARTSET 49934 07/29/201807/29, 03/31/2016, 08/05/2015, Additional history exists CKD PHOS USE SMARTSET 31971 07/29/201807/18, 03/31/2016, 08/06/2014 Depression Screening, Annual for [...] of this encounter Visit Diagnoses Diagnosis Trochanteric bursitis of right hip- Primary Enthesopathy of hip region documented in this encounter Care Teams Stonework Tracer Relationship Specialty Start Date End Date Deja Oseguera CRNP [address] [place] [address] PCP - General Nurse Practitioner 12/24/20 documented as of this encounter
--- OUTSIDE RECORDS SUMMARY | 2022-12-12 21:45 | External Medical Summary | Summary of Care ---
Author Name Unknown Organization [facility] Address [place] [address] Care Team Providers Care Meat Inspector Name Role Phone Deja Oseguera MARY Primary Care Provider Reason for Visit * Reason Onset Date Comments FYI 05/11/2022 Encounter Details Date Type Department Care Team Description 05/11/2022 Telephone [facility] Surgery, [facility] [address] [facility] [place] [address] Jayson Holliday MD [address] [place] [address] FY Allergies No known active allergiesdocumented as of this encounter (statuses as of 05/12/2022) Medications Medication Sig Dispensed Refills Start Date [...] MG Tablet Take 0.5 Tabs by mouth. 1 Tab 0 01/22/2016 Active [...] units Capsule Take by mouth. 0 Active [place] 3 1200 MG CAPS 0 Active Biotin [...] Active Donepezil HCl 10 MG Oral Tablet (Aricept) Take 1 Tablet by mouth in the morning. Take with largest meal of the day.. 0 Active documented as of this encounter (statuses as of 05/12/2022) Active Problems Problem Noted Date Prediabetes 08/08/2017 [...] as of this encounter (statuses as of 05/12/2022) Resolved Problems Problem Noted Date Resolved Date Encounter for examination fo r normal comparison and control in clinical research program 08/28/2017 10/21/2019 Overview: DO NOT DELETE [facility] DETECT Study: Project # [id number], Cell Coverer: Jace Arrington, PhD. SUMMARY: Goal: Establish test [...] contact study staff at ; after hours Cell Coverer via the [facility] hospital acid wash operator . Please contact study team before resolving/deleting from patients problem list. Study phone number: [phone]. Diagnosis changed due to Research Module. Go to Snapshot for study details. Encounter for examination fo r normal comparison and control in clinical research program 08/28/2017 11/18/2021 Overview: DO NOT DELETE - [facility] Study: Project # [id number], Cell Coverer: Nando Villeda, MS, MPH. SUMMARY: Goal: Establish [...] contact study staff at ; after hours Cell Coverer via the [facility] acid wash operator . - Please contact study team before resolving/deleting from patients problem list. Study phone number: [phone]. Diagnosis changed due to Research Module. Go to Crunchbutton for study details. Sciatica without lumbago 03/31/2016 [...] as of this encounter (statuses as of 05/12/2022) Immunizations Name Administration Dates Next Due PPD [...] encounter Miscellaneous Notes * Telephone Encounter - Suha Magaña LPN - 05/12/2022 8:47 AM EST Spoke to patient and clarified - no further questions at this time * Telephone Encounter - MARIFER Garland - 05/11/2022 10:07 AM EST Pt called in stating she was having horrible issues with her eyes and Dr. Lyons has her on Prednisone for the next 2 weeks. Was inquiring if this would have any affect on her surgery coming up on Monday, 05/16 documented in this encounter Plan of Treatment Upcoming Encounters Date Type Specialty Care Team Description 05/16/2022 Office Visit Dermatology Jayson Holliday MD [address] [facility] [place] [address] 06/01/2022 Hospital Encounter Surgery Ryder Curry, DO [address] [place] [address] 06/01/2022 Surgery Surgery Ryder Curry, [address] [place] [address] INJECTION SPINE LUMBAR OR SACRAL Scheduled Procedures Name Priority Associated Diagnoses Date/Ti me INJECTION SPINE LUMBAR OR SACRAL Spinal stenosis of lumbar region with neurogenic claudication 06/01/2022 1:40 PM EDT COLONOSCOPY FLEXIBLE PROXIMAL DIAGNOSTIC Recall History of colon polyps Health Maintenance Due Date Last Done Comments Zoster Vaccines (2 of 3) 05/15/2007 03/20/2007 Albumin/Creatinine Ratio 01/18/2018 01/18/2017 GFR - Renal Function 03/02/2018 08/31/2017, 07/29/2017, 11/14/2016, Additional history exists CKD HGB USE SMARTSET 30792 07/29/201807/29, 03/31/2016, 08/05/2015, Additional history exists CKD PHOS USE SMARTSET 77758 07/29/201807/18, 03/31/2016, 08/06/2014 Depression Screening, Annual for Pts 12 and Over 08/11/2018 08/11/2017 HgA1C 08/24/2018 08/24/2017 DXA Scan 03/15/2019 03/15/2012 COVID-19 Vaccine (3 - Booster for Pfizer series) 07/10/2020 05/15/2020, 04/24/2020 Influenza Vaccine (FLU shot) (#1) [...] filedocumented as of this encounter Care Teams Meat Inspector Relationship Specialty Start Date End Date Deja Oseguera CRNP [address] [place] [address] PCP - General Nurse Practitioner 12/24/20 documented as of this encounter
--- OUTSIDE RECORDS SUMMARY | 2022-12-12 21:45 | External Medical Summary | Summary of Care ---
Author Name Unknown Organization [facility] Address [place] [address] Care Team Providers Care Chemical Applicator Name Role Phone Deja Oseguera MARY Primary Care Provider Reason for Visit * Reason Comments Lumbar Pain W/radiation Encounter Details Date Type Department Care Team Description 02/03/2022 Telemedicine Interventional [facility], [facility] [address] [place] [address] CousinsRyder, [address] [place] [address] Lumbar radicular pain*; Spinal stenosis of lumbar region with neurogenic claudication Allergies No known active allergiesdocumented as of this encounter (statuses as of 02/03/2022) Medications Medication Sig Dispensed Refills Start Date End Date Status STOOL SOFTENER 100 MG PO TABS 1 tablet daily as needed for constipation 0 Active RED YEAST RICE 600 MG PO CAPS 1 daily 0 Active PROGESTERONE 1000 MG/60GM EX CREA apply once daily 0 Act stephanie cyclosporine (RESTASIS) 0.05 % ophthalmic emulsion Instill 1 Drop into both eyes every 12 hours. affected eye(s) 32 Vial 11 05/14/2015 Active PARoxetine (PAXIL) 30 MG TabletIndications:A djustment disorder with depressed mood,Posttraumatic stress disorder Take 1 Tab by mouth daily. 90 Tab 3 05/14/2015 Active diazepam (VALIUM) 5 MG TabletIndications:S pasm of muscle TAKE 1/2 TO ONE TABLET UP TO TWICE A DAY NEEDED FOR MUSCLE SPASM 180 Tab 1 05/14/2015 Active polyethylene glycol 3350 (MIRALAX) 255 gram powder Take 17 g by mouth 2 times a day. Dissolve one heaping tablespoon in 8 ounces of water or juice. 1 Bottle 2 08/12/2015 Active gabapentin (NEURONTIN) 100 MG Capsule 200 mg. Take 3 times a day 1 Cap [...] units Capsule Take by mouth. 0 Active Covina 3 1200 MG CAPS 0 Active Biotin 1 MG Capsule 0 Activ e Ascorbic Acid (VITAMIN C) 1000 MG Tablet Take 1,000 mg by mouth daily. 0 Active fluticasone (FLONASE) 50 MCG/ACT nasal [...] glycopyrrolate (ROBINUL) 1 MG Tablet Take 1 mg by mouth 3 times a day. 0 Active Witch Sheryl-Glycerin External Pad (A.E.R. Rebecach Sheryl) Apply topically to affected area as needed . 0 Active dilTIAZem HCl (CARDIZEM OINTMENT) 2% UT GEL Administer into the rectum 3 times a day. 30 g 3 01/15/2020 Active Hydrocortisone (Perianal) 2.5 % External Cream (Anusol-HC) Administer into the rectum 2 times a day. 30 g 3 01/15/2020 Active Aspirin 325 MG Oral Tablet Delayed Release Take by mouth 325 mg 3 times a day . Patient takes OTC for pain 0 Active traMADol HCl 50 MG Oral Tablet (Ultram) 0 03/15/2021 Active Aspirin-Caffeine 500-32.5 MG Oral Tablet Take by mouth . 0 Active documented as of this encounter (statuses as of 02/03/2022) Active Problems Problem Noted Date Prediabetes 08/08/2017 [...] as of this encounter (statuses as of 02/03/2022) Resolved Problems Problem Noted Date Resolved Date Encounter for examination fo r normal comparison and control in clinical research program 08/28/2017 10/21/2019 Overview: DO NOT DELETE [facility] DETECT Study: Project # [id number], Zipper Slide Attacher: Jace Arrington, PhD. SUMMARY: Goal: Establish test [...] contact study staff at ; after hours Zipper Slide Attacher via the [facility] hoop punch and coiler operator helper . Please contact study team before resolving/deleting from patients problem list. Study phone number: [phone]. Diagnosis changed due to Research Module. Go to Snapshot for study details. Encounter for examination fo r normal comparison and control in clinical research program 08/28/2017 11/18/2021 Overview: DO NOT DELETE - [facility] JADA Study: Project # [id number], Zipper Slide Attacher: Nando Villeda, MS, MPH. SUMMARY: Goal: Establish [...] contact study staff at ; after hours Zipper Slide Attacher via the [facility] hoop punch and coiler operator helper . - Please contact study team before resolving/deleting from patients problem list. Study phone number: [phone]. Diagnosis changed due to Research Module. Go [...] as of this encounter (statuses as of 02/03/2022) Immunizations Name Administration Dates Next Due PPD [...] of this encounter Progress Notes * Ryder Machado Cousins, DO - 02/03/2022 12:30 PM EST Name: Laurel Rios Date: 02/03/2022 HPI: Laurel Rios is a 82 year old female who presents for telephonic visit. After connecting to the patient via telephone, the patient was identified by name and date of . Patient was then informed that this was a telephone call only visit. The patient agreed to participate. Visit Disposition: Routine follow-up Total call duration was 12 minutes. Answered multiple questions regarding injections and if surgery is inevitable. Generally pleased with the overall response to injections. 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 • INJECT DX/THER SUBSTANCE INTERLAMINAR CERVICAL/THORACIC W IMAGE GUIDE 02/08/2021 INJECTION SPINE LUMBAR CERVICAL OR THORACIC performed by Ryder Curry, DO at [facility] • INJECT DX/THER SUBSTANCE INTERLAMINAR LUMBAR/SACRAL W IMAGE GUIDE 09/17/2020 INJECTION SPINE LUMBAR OR SACRAL performed by Ryder Curry, at [facility] • INJECT DX/THER SUBSTANCE INTERLAMINAR LUMBAR/SACRAL W IMAGE GUIDE 12/24/2020 INJECTION SPINE LUMBAR OR SACRAL performed by Ryder Curry, at [facility] • INJECT DX/THER SUBSTANCE INTERLAMINAR LUMBAR/SACRAL W IMAGE GUIDE 04/29/2021 INJECTION SPINE LUMBAR OR SACRAL performed by Ryder Carter Cousins, DO at [facility] • INJECT DX/THER SUBSTANCE INTERLAMINAR LUMBAR/SACRAL W IMAGE GUIDE 08/04/2021 INJECTION SPINE LUMBAR OR SACRAL performed by Ryder Curry, DO at [facility] • INJECT DX/THER SUBSTANCE INTERLAMINAR LUMBAR/SACRAL W IMAGE GUIDE 12/08/2021 INJECTION SPINE LUMBAR OR SACRAL performed by Ryder Curry, DO at [facility] • LAPAROSCOPY; CHOLECYSTECTOMY 1991 Cholecystectomy, Laproscopic • REVISE UPPER EYELID 06/10/2010 both eyes upper lid blepharoplasties, Dr. Hu • TOTAL HYSTERECTOMY 1989 still has one ovary • TREAT ANKLE FRACTURE W/MANIPULATION Left surgical repair ankle fracture Current Outpatient Medications Medication Sig Dispense Refill • STOOL SOFTENER 100 MG PO TABS 1 tablet daily as needed for constipation (Patient not taking: ) • RED YEAST RICE 600 MG PO CAPS 1 daily • PROGESTERONE 1000 MG/60GM EX CREA apply once daily (Patient not taking: ) • cyclosporine (RESTASIS) 0.05 % ophthalmic emulsion Instill 1 Drop into both eyes every 12 hours. affected eye(s) 32 Vial 11 • PARoxetine (PAXIL) 30 MG Tablet Take 1 Tab by mouth daily. 90 Tab 3 • diazepam (VALIUM) 5 MG Tablet TAKE 1/2 TO ONE TABLET UP TO TWICE A DAY NEEDED FOR MUSCLE SPASM 180 Tab 1 • polyethylene glycol 3350 (MIRALAX) 255 gram powder Take 17 g by mouth 2 times a day. Dissolve one heaping tablespoon in 8 ounces of water or juice. 1 Bottle 2 • gabapentin (NEURONTIN) 100 MG Capsule 200 mg. Take 3 times a day 1 Cap 0 • tiZANidine (ZANAFLEX) 4 MG Tablet Take 0.5 Tabs by mouth. 1 Tab 0 • DULoxetine (CYMBALTA) 20 MG CPEP 30 mg. • dicyclomine (BENTYL) 10 MG Capsule Take 1 Cap by mouth 4 times a day as needed for Cramping. For abdominal pain 120 Cap 5 • Cholecalciferol (VITAMIN D-3) 1000 units Capsule Take by mouth. • Covina 3 1200 MG CAPS • Biotin 1 MG Capsule • Ascorbic Acid (VITAMIN C) 1000 MG Tablet Take 1,000 mg by mouth daily. • fluticasone (FLONASE) 50 MCG/ACT nasal spray Administer 2 Sprays into each nostril daily. 1 Inhaler 5 • MEDICAL INSTRUCTIONS Use as directed. Bi-Est estrogen cream --apply cream to arm every other day (Patient not taking: Reported on 12/08/2021 ) • acetaminophen (TYLENOL EXTRA STRENGTH) 500 MG Tablet Take 500 mg by mouth every 6 hours as needed for Pain. (Patient not taking: Reported on 04/29/2021 ) • valsartan (DIOVAN) 80 MG Tablet Take 1 Tab by mouth daily. 90 Tab 1 • Cyanocobalamin (VITAMIN B 12) 500 MCG TABS Take by mouth. • glycopyrrolate (ROBINUL) 1 MG Tablet Take 1 mg by mouth 3 times a day. • Witch Sheryl-Glycerin External Pad (A.E.R. Witch Sheryl) Apply topically to affected area as needed . • dilTIAZem HCl (CARDIZEM OINTMENT) 2% UT GEL Administer into the rectum 3 times a day. 30 g 3 • Hydrocortisone (Perianal) 2.5 % External Cream (Anusol-HC) Administer into the rectum 2 times aday. 30 g 3 • Aspirin 325 MG Oral Tablet Delayed Release Take by mouth 325 mg 3 times a day . Patient takes OTC for pain • traMADol HCl 50 MG Oral Tablet (Ultram) (Patient not taking: Reported on 04/29/2021 ) • Aspirin-Caffeine 500-32.5 MG Oral Tablet Take by mouth . No current facility-administered medications for this visit. Review of patient's allergies indicates: No Known Allergies Social History Tobacco Use Smoking Status Former • Types: Cigarettes • Quit date: 03/19/1988 • Years since quittin.9 Smokeless Tobacco Never Tobacco Comments quit 1987 Social History Substance and Sexual Activity Alcohol Use No ASSESSMENT: Lumbar radicular pain Lumbar spinal stenosis Lumbar spondylolisthesis with NF stenosis L5S1 Lumbar facet cyst RECOMMENDATION: We will continue with current treatment plan, and repeat injection can be considered in another month or two. Ryder Curry DO 02/03/2022 12:30 PM documented in this encounter Plan of Treatment Scheduled Procedures Name Priority Associated Diagnoses Date/Ti me COLONOSCOPY FLEXIBLE PROXIMAL DIAGNOSTIC Recall History of colon polyps Health Maintenance Due Date Last Done Comments Hepatitis B (1 of 3 - 3-dose series) 1940 Zoster Vaccines (2 of 3) 05/15/2007 03/20/2007 Alb / Creat Ratio 01/18/2018 01/18/2017 GFR - Renal Function 03/02/2018 08/31/2017, 07/29/2017, 11/14/2016, Additional history exists CKD HGB USE SMARTSET 69478 07/29/201807/29, 03/31/2016, 08/05/2015, Additional history exists CKD PHOS USE SMARTSET 72361 07/29/201807/18, 03/31/2016, 08/06/2014 Depression Screening, Annual for Pts 12 and Over 08/11/2018 08/11/2017 Prediabetes-Yearly Hemoglobin A1c 08/24/2018 08/24/2017 DXA Scan 03/15/2019 03/15/2012 COVID-19 [...] as of this encounter Visit Diagnoses Diagnosis Lumbar radicular pain- Primary Thoracic or lumbosacral neuritis or radiculitis, unspecified Spinal stenosis of lumbar region with neurogenic claudication Spinal stenosis, lumbar region, with neurogenic claudication documented in this encounter Care Teams Chemical Applicator Relationship Specialty Start Date End Date Deja Oseguera CRNP [address] [facility] [place] [address] PCP - General Nurse Practitioner 12/24/20 documented as of this encounter
--- OUTSIDE RECORDS SUMMARY | 2022-12-12 21:45 | External Medical Summary | Summary of Care ---
Author Name Unknown Organization [place] [address] Care Team Providers Care Train Announcer Name Role Phone Deja Oseguera Rosanne MARY Primary Care Provider Reason for Visit * Reason Comments NEW PATIENT Encounter Details Date Type Department Care Team Description 01/17/2022 [facility] [address] [place] [address] BackerYamel CRNP [address] [facility] [place] [address] Post-menopause* Allergies No known active allergiesdocumented as of this encounter (statuses as of 01/17/2022) Medications Medication Sig Dispensed Refills Start Date [...] units Capsule Take by mouth. 0 Active Baxley 3 1200 MG CAPS 0 Active Biotin [...] 0 Active Witch Sheryl-Glycerin External Pad (A.E.R. Witch Sheryl) [...] as of this encounter (statuses as of 01/17/2022) Active Problems Problem Noted Date Prediabetes 08/08/2017 [...] as of this encounter (statuses as of 01/17/2022) Resolved Problems Problem Noted Date Resolved Date Encounter for examination fo r normal comparison and control in clinical research program 08/28/2017 10/21/2019 Overview: DO NOT DELETE [facility] DET[facility] Study: Project # [id number], Ingot Buggy Operator: Jace Arrington, PhD. SUMMARY: Goal: Establish [...] contact study staff at ; after hours Ingot Buggy Operator via the [facility] striping machine operator . Please contact study team before resolving/deleting from patients problem list. Study phone number: [phone]. Diagnosis changed due to Research Module. Go to Snapshot for study details. Encounter for examination fo r normal comparison and control in clinical research program 08/28/2017 11/18/2021 Overview: DO NOT DELETE - [facility] Study: Project # [id number], Ingot Buggy Operator: Nando Villeda, MS, MPH. SUMMARY: Goal: [...] contact study staff at ; after hours Ingot Buggy Operator via the [facility] striping machine operator . - Please contact study team before resolving/deleting from patients problem list. Study phone number: [phone]. Diagnosis changed due to Research Module. Go to Curis for study details. Sciatica without lumbago 03/31/2016 [...] as of this encounter (statuses as of 01/17/2022) Immunizations Name Administration Dates Next Due PPD [...] Tobacco Use Types Packs/Day Years Used Date Former Smoker Quit: 03/19 Smokeless Tobacco: Never Used Comments:quit 1987 Alcohol Use Standard Drinks/Week Comments No 0 (1 standard drink = 0.6 oz pur e alcohol) Sex Assigned at Date Recorded Not on file Job Start Date Occupation Industry Not on file Not on file Not on file documented as of this encounter Last Filed Vital Signs Vital Sign Reading Time Taken Comments Blood Pressure 148/70 01/17/2022 2:25 PM EDT Pulse - - Temperature - - Respiratory Rate - - Oxygen Saturation - - Inhaled Oxygen Concentration - - Weight 73.5 kg (162 lb) 01/17/2022 2:25 PM EDT Height - - Body Mass Index 27.81 02/12/2020 2:00 PM EST documented in this encounter Progress Notes * Yamel SheridanMARY - 01/17/2022 2:56 PM EDT HPI: The patient is a 82 year old who presents to discuss HRT. No LMP recorded. Patient has had a hysterectomy. She was on progesterone and estrogen creams for 15-20 years, given by a provider in [place]. This clinic closed, and she stopped hormones in her 70s - sister had breast cancer. She had a DEXA scan showing osteopenia - PCP advised calcium and vit D. She has just started walking again, had stopped for a year following back pain. Asking if she should be on HRT. Denies hot flashes, night sweats. OB HISTORY: OB History No obstetric history on file. 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 affected eye(s) 32 Vial 11 • PARoxetine (PAXIL) 30 MG Tablet Take 1 Tab by mouth daily. 90 Tab 3 • diazepam (VALIUM) 5 MG Tablet TAKE 1/2 TO ONE TABLET UP TO TWICE A DAY NEEDED FOR MUSCLE SPASM 180 Tab 1 • gabapentin (NEURONTIN) 100 MG Capsule 200 [...] 1000 units Capsule Take by mouth. • Baxley 3 1200 MG CAPS • Biotin 1 [...] by mouth 3 times a day. • dilTIAZem HCl (CARDIZEM OINTMENT) 2% WA GEL Administer into the rectum 3 times a day. 30 g 3 • Hydrocortisone (Perianal) 2.5 % External Cream (Anusol-HC) Administer into the rectum 2 times aday. 30 g 3 • Aspirin 325 MG Oral Tablet Delayed Release Take by mouth 325 mg 3 times a day . Patient takes OTC for pain • Aspirin-Caffeine 500-32.5 MG Oral Tablet Take by mouth . • STOOL SOFTENER 100 MG PO TABS 1 tablet daily as needed for constipation (Patient not taking: ) • PROGESTERONE 1000 MG/60GM EX CREA apply once daily (Patient not taking: ) • polyethylene glycol 3350 (MIRALAX) 255 gram powder Take 17 g by mouth 2 times a day. Dissolve one heaping tablespoon in 8 ounces of water or juice. 1 Bottle 2 • MEDICAL INSTRUCTIONS Use as directed. Bi-Est estrogen cream --apply cream to arm every other day (Patient not taking: Reported on 12/08/2021 ) • acetaminophen (TYLENOL EXTRA STRENGTH) 500 MG Tablet Take 500 mg by mouth every 6 hours as needed for Pain. (Patient not taking: Reported on 04/29/2021 ) • Witch Sheryl-Glycerin External Pad (A.E.R. Witch Sheryl) Apply topically to affected area as needed . • traMADol HCl 50 MG Oral Tablet (Ultram) (Patient not taking: Reported on 04/29/2021 ) No current facility-administered medications for this visit. Review of patient's allergies indicates: No Known Allergies ROS EXAM: see HPI PHYSICAL EXAM BP 148/70 | Wt 73.5 kg (162 lb) | BMI 27.81 kg/m² | BSA 1.82 m² General: alert and no distress IMPRESSION: (Z78.0) Post-menopause (primary encounter diagnosis) Plan: advised against starting HRT at her age and with her comorbidities as risk for cardiovascular/thrombotic events is higher than benefit to bone density. Discussed option of high risk osteoporosis clinic. Encouraged continue supplementation with calcium, vit D, weight-bearing exercise. F/u withPCP. I spent a total of 30-39 minutes (exact time 30 mins) on the date of service in preparation, delivery, and documentation of the care provided to Laurel Rios excluding any time spent in the performance of separately billed services. MARY Nielsen documented in this encounter Nursing Notes * Liya Weeks LPN - 01/17/2022 2:27 PM EDT Pt here today to discuss HRT. Was on bio-identical hormones for 15-20 years. Went off around age 72 d/t her doctor closed practice. documented in this encounter Plan of Treatment Upcoming Encounters Date Type Specialty Care Team Description 02/03/2022 Telemedicine Pain Medicine Cousins, Ryder Machado, [address] [place] [address] Scheduled Procedures Name Priority Associated Diagnoses Date/Ti me COLONOSCOPY FLEXIBLE PROXIMAL DIAGNOSTIC Recall History of colon polyps Health Maintenance Due Date Last Done Comments Zoster Vaccines (2 of 3) 05/15/2007 03/20/2007 Alb / Creat Ratio 01/18/2018 01/18/2017 GFR - Renal Function 03/02/2018 08/31/2017, 07/29/2017, 11/14/2016, Additional history exists CKD HGB USE SMARTSET 01666 07/29/201807/29, 03/31/2016, 08/05/2015, Additional history exists CKD PHOS USE SMARTSET 91118 07/29/201807/18, 03/31/2016, 08/06/2014 Depression Screening, Annual for [...] this topic documented as of this encounter Implants Not on filedocumented as of this encounter Visit Diagnoses Diagnosis Post-menopause- Primary Asymptomatic postmenopausal status (age-related) (natural) documented in this encounter Advance Directives Documents on File Type Date Recorded Patient Pad Machine Feeder Expl anation Advanced Directive Advanced Directive Advanced Directive Advanced Directive Advanced Directive Advanced Directive Advanced Directive Advanced Directive Advanced Directive Advanced Directive Advanced Directive Advanced Directive Advanced Directive Advanced Directive Advanced Directive Advanced Directive Advanced Directive Advanced Directive Advanced Directive Advanced Directive Advanced Directive Advanced Directive Advanced Directive Advanced Directive Advanced Directive Advanced Directive Advanced Directive Advanced Directive Advanced Directive Advanced Directive Advanced Directive Advanced Directive Advanced Directive Advanced Directive Advanced Directive Advanced Directive Advanced Directive Advanced Directive Advance Directives and Living Will 11/16/2014 12:00 AM ADVANCE DIRECTIVE AN D DURABLE POA FOR HEALTH CARE Advance Directives and Living Will 12/13/2011 12:00 AM ADVANCE DIRECTIVE ADVANCE DIRECTIVE DECLARATION FORM Advance Directives and Living Will 11/13/2011 12:00 AM ADVANCE DIRECTIVE LETTER OF ADVANCE DIRECTIVE Care Teams Train Announcer Relationship Specialty Start Date End Date Deja Oseguera CRNP [address] [place] [address] PCP - General Nurse Practitioner 12/24/20 documented as of this encounter"
--- OUTSIDE RECORDS SUMMARY | 2022-12-12 21:45 | External Medical Summary | Summary of Care ---
Author Name Unknown Organization [place] [address] Care Team Providers Care Technical Training Coordinator Name Role Phone Deja Oseguera MARY Primary Care Provider Reason for Referral * Evaluate & Treat - Unlimited Visits (Within 30 days (routine)) - Authorized Specialty Diagnoses / Procedures Referred By Contac t Referred To Contact Dermatology Diagnoses BCC (basal cell carcinoma), lip Zachary Howard MD [address] [place] [address] Referral ID Status Reason Start Date Expiration Date Visits Requested Visits Authorized [id number] Authorized Specialty Services Required 04/18/2022 999 999 Question Answer Referral Priority Within 30 days (routine) Are you referring the patient for Mohs Surgery and have a current positive skin cancer biopsy result? Yes Type of Procedure MOHS Surgery Encounter Details Date Type Department Care Team Description 04/18/2022 Orders Only MOHS Surgery [facility] [address], [place] [id number] Request, External Referral BCC (basal cell carcinoma), lip* Allergies No known active allergiesdocumented as of this encounter (statuses as of 04/18/2022) Medications Medication Sig Dispensed Refills Start Date [...] units Capsule Take by mouth. 0 Active Cucumber 3 1200 MG CAPS 0 Active Biotin [...] as of this encounter (statuses as of 04/18/2022) Active Problems Problem Noted Date Prediabetes 08/08/2017 [...] as of this encounter (statuses as of 04/18/2022) Resolved Problems Problem Noted Date Resolved Date Encounter for examination fo r normal comparison and control in clinical research program 08/28/2017 10/21/2019 Overview: DO NOT DELETE [facility] JADA Study: Project # [id number], Neurology Hospitalist: Jace Arrington, PhD. SUMMARY: Goal: Establish test [...] contact study staff at ; after hours Neurology Hospitalist via the [facility] chucking machine operator . Please contact study team before resolving/deleting from patients problem list. Study phone number: [phone]. Diagnosis changed due to Research Module. Go to Snapshot for study details. Encounter for examination fo r normal comparison and control in clinical research program 08/28/2017 11/18/2021 Overview: DO NOT DELETE - [facility] DETECT Study: Project # [id number], Neurology Hospitalist: Nando Villeda, MS, MPH. SUMMARY: Goal: Establish [...] contact study staff at ; after hours Neurology Hospitalist via the [facility] chucking machine operator . - Please contact study team before resolving/deleting from patients problem list. Study phone number: [phone]. Diagnosis changed due to Research Module. Go [...] as of this encounter (statuses as of 04/18/2022) Immunizations Name Administration Dates Next Due PPD [...] Office Visit Dermatology Jayson Holliday MD [address] [place] [address] Scheduled Procedures Name Priority Associated Diagnoses Date/Ti me COLONOSCOPY FLEXIBLE PROXIMAL DIAGNOSTIC Recall History of colon polyps Scheduled Referrals Name Type Priority Associated Diagnoses Orde r Schedule MOHS SURGERY REFERRAL OP Referral Within 30 days (routine) BCC (basal cell carcinoma), lip Ordered: 04/18/2022 Health Maintenance Due Date Last Done Comments Zoster Vaccines (2 of 3) 05/15/2007 03/20/2007 Alb / Creat Ratio 01/18/2018 01/18/2017 GFR - Renal Function 03/02/2018 08/31/2017, 07/29/2017, 11/14/2016, Additional history exists CKD HGB USE SMARTSET 67075 07/29/201807/29, 03/31/2016, 08/05/2015, Additional history exists CKD PHOS USE SMARTSET 36662 07/29/201807/18, 03/31/2016, 08/06/2014 Depression Screening, Annual for [...] lip documented in this encounter Care Teams Technical Training Coordinator Relationship Specialty Start Date End Date Deja Oseguera CRNP [address] [place] [address] PCP - General Nurse Practitioner 12/24/20 documented as of this encounter
--- OUTSIDE RECORDS SUMMARY | 2022-12-12 21:45 | External Medical Summary | Summary of Care ---
Author Name Unknown Organization [facility] Address [place] [address] Care Team Providers Care Computer Typesetter Name Role Phone Deja Oseguera MARY Primary Care Provider Reason for Visit * Reason Onset Date Comments Appointment 03/29/2022 Encounter Details Date Type Department Care Team Description 03/29/2022 Telephone Interventional Pain Center, [facility] [address] [place] [address] Cous[place], [address] [place] [address] Appointment Allergies No known active allergiesdocumented as of this encounter (statuses as of 03/29/2022) Medications Medication Sig Dispensed Refills Start Date [...] units Capsule Take by mouth. 0 Active [place] 3 1200 MG CAPS 0 Active Biotin [...] as of this encounter (statuses as of 03/29/2022) Active Problems Problem Noted Date Prediabetes 08/08/2017 [...] as of this encounter (statuses as of 03/29/2022) Resolved Problems Problem Noted Date Resolved Date Encounter for examination fo r normal comparison and control in clinical research program 08/28/2017 10/21/2019 Overview: DO NOT DELETE [facility] DETECT Study: Project # [id number], Concrete Finisher: Jace Arrington, PhD. SUMMARY: Goal: Establish test [...] contact study staff at ; after hours Concrete Finisher via the [facility] aluminum molding machine operator . Please contact study team before resolving/deleting from patients problem list. Study phone number: [phone]. Diagnosis changed due to Research Module. Go to Snapshot for study details. Encounter for examination fo r normal comparison and control in clinical research program 08/28/2017 11/18/2021 Overview: DO NOT DELETE - [facility] Study: Project # [id number], Concrete Finisher: Nando Villeda, MS, MPH. SUMMARY: Goal: Establish [...] contact study staff at ; after hours Concrete Finisher via the [facility] aluminum molding machine operator . - Please contact study team before resolving/deleting from patients problem list. Study phone number: [phone]. Diagnosis changed due to Research Module. Go [...] as of this encounter (statuses as of 03/29/2022) Immunizations Name Administration Dates Next Due PPD [...] Telephone Encounter - Dominique Walker LPN - 03/29/2022 11:17 AM EST Patient called regarding neck pain-was seen in 2020 for kyle Scheduled for 40min appt. documented in this encounter Plan of Treatment Upcoming Encounters Date Type Specialty Care Team Description 04/05/2022 Office Visit Pain Medicine Cousins, Ryder Machado, [address] [place] [address] Scheduled Procedures Name Priority Associated Diagnoses Date/Ti me COLONOSCOPY FLEXIBLE PROXIMAL DIAGNOSTIC Recall History of colon polyps Health Maintenance Due Date Last Done Comments Zoster Vaccines (2 of 3) 05/15/2007 03/20/2007 Alb / Creat Ratio 01/18/2018 01/18/2017 GFR - Renal Function 03/02/2018 08/31/2017, 07/29/2017, 11/14/2016, Additional history exists CKD HGB USE SMARTSET 07517 07/29/201807/29, 03/31/2016, 08/05/2015, Additional history exists CKD PHOS USE SMARTSET 23937 07/29/201807/18, 03/31/2016, 08/06/2014 Depression Screening, Annual for [...] filedocumented as of this encounter Care Teams Computer Typesetter Relationship Specialty Start Date End Date Deja Oseguera CRNP [address] [place] [id number] PCP - General Nurse Practitioner 12/24/20 documented as of this encounter
--- OUTSIDE RECORDS SUMMARY | 2022-12-12 21:45 | External Medical Summary | Continuity of Care Document ---
Author Name Unknown Organization [facility] [address] [address] Address [address] [place], [place] [id number] Care Team Providers Care Wood Lathe Operator Name Role Phone Deja Oseguera Primary Care Physician [phone] [id number] Date[facility]s): 05/04/22 - 05/04/22 [facility] [address] [place] [address] [facility] [address], [address] [place], [place] [phone] Encounter Diagnosis Essential (primary) hypertension(Final) - Chronic kidney disease, stage 3 unspecified(Final) - Spinal stenosis, cervical region(Final) - Low back pain, unspecified(Final) - Anemia, unspecified(Final) - Hypo-osmolality and hyponatremia(Final) - Other abnormal glucose(Final) - Discharge Disposition: Home or Self Care Attending [...] live 8 03/20/07 Recorded 1Result Comment: [facility] 2Result Comment: 2021-05-13: Historical information-source unspecified 3Result Comment: 2021-05-13: Historical information-source unspecified 4Result Comment: 2019-11-27: Historical information-source unspecified 5Result Comment: 2019-11-27: Historical information-source unspecified 6Result Comment: 2019-11-27: Historical information-source unspecified 7Result Comment: 2019-11-27: Historical information-source unspecified 8Result Comment: 2019-11-27: Historical information-source unspecified Medications Anusol-HC 2.5% rectal cream Start: 11/26/19 13:21:00 EDT, 1 appl, VA, tid, Disp# 30 g, Refills: 1, to affected area, Pharmacy: [facility]/pharmacy #[id number], 160, cm, 08/26/19 13:50:00 EDT, Height Start Date: 11/26/19 Status: Ordered ascorbic acid Start: 01/16/18 13:53:00 EDT, 1,000 [...] 10/19/15 13:31:00 Start Date: 10/19/15 Status: Ordered Trinchera-3 oral capsule Start: 01/16/18 13:54:00 EDT, 1,200 [...] Refills: 3, TAKE 1 TABLET DAILY, Pharmacy: [facility] Start Date: 09/06/21 Status: Ordered Vitamin D3 5000 intl units oral capsule Start: 11/07/17 14:30:00 EDT Start Date: 11/07/17 Status: Ordered Zanaflex 4 mg oral tablet Start: 11/09/15 15:42:00, 1 tab, PO, q8h, Disp# 90 tab, Refills: 2, Begin with a half tablet and advance to a full tablet as tolerated, Pharmacy: [id number] Start Date: 11/09/15 Stop Date: 02/07/16 Status: [...] receive written notification of the results. Results Laboratory List Name Date Complete Blood Count w Differential (CBC ,DIFFH) 05/04/22 Comprehensive Metabolic Panel (COMP META B PANEL) 05/04/22 Hemoglobin A1C (HEMOGLOBIN, A1C) 05/04/22 Lipid Profile (LIPOPROTEINS) 05/04/22 Thyroid Stimulating Hormone (TSH) 3 Most recent to oldest [Reference Range]: 1 eGFR CKD-EPI [>60 mL/min/1.73 m2] 50 mL/ min/1.73 m2 1 *LOW* (05/04/22 3:04 PM) Estimated Average Glucose 120 mg/dL 2 (05/04/22 3:04 PM) Non-HDL 111 mg/dL 3 (05/04/22 3:04 PM) MPV [9.0-12.2 fL] 9.7 fL (05/04/22 3:04 PM) Immature Gran% 0.3 % (05/04/22 3:04 PM) Neut% 67.1 % (05/04/22 3:04 PM) Lymph% 20.2 % (05/04/22 3:04 PM) Cobb% 9.7 % (05/04/22 3:04 PM) Baso% 0.3 % (05/04/22 3:04 PM) Eos% 2.4 % (05/04/22 3:04 PM) Immat Gran, Abs [0-0.4 K/uL] 0.02 K/uL 4 (05/04/22 3:04 PM) Neut, Abs [2.0-7.7 K/uL] 4.75 K/uL (05/04/22 3:04 PM) Lymph, Abs [1.0-3.4 K/uL] 1.43 K/uL (05/04/22 3:04 PM) Cobb, Abs [0-1.0 K/uL] 0.69 K/uL (05/04/22 3:04 PM) Baso, Abs [0-0.1 K/uL] 0.02 K/uL (05/04/22 3:04 PM) Eos, Abs [0-0.5 K/uL] 0.17 K/uL (05/04/22 3:04 PM) Type of Diff: AUTO *Unknown* (05/04/22 3:04 PM) RDW [11.5-14.2 %] 12.2 % (05/04/22 3:04 PM) Anion Gap [5-14 mmol/L] 3 mmol/L *LOW* (05/04/22 3:04 PM) Alb [3.5-5.0 g/dL] 4.0 g/dL (05/04/22 3:04 PM) Alk Phos [38-126 unit/L] 107 unit/L (05/04/22 3:04 PM) ALT [<35 unit/L] 15 unit/L (05/04/22 3:04 PM) AST [15-46 unit/L] 25 unit/L (05/04/22 3:04 PM) BUN [7-20 mg/dL] 20 mg/dL (05/04/22 3:04 PM) Ca [8.4-10.2 mg/dL] 10.1 mg/dL (05/04/22 3:04 PM) Chol/HDL 3 (05/04/22 3:04 PM) Chol [125-200 mg/dL] 176 mg/dL (05/04/22 3:04 PM) Cl- [96-107 mmol/L] 100 mmol/L (05/04/22 3:04 PM) HCO3 [22-30 mmol/L] 31 mmol/L *HI* (05/04/22 3:04 PM) Cret [0.60-1.00 mg/dL] 1.11 mg/dL *HI* (05/04/22 3:04 PM) HbA1c [4.0-6.0 %] 5.8 % (05/04/22 3:04 PM) Glu [74-106 mg/dL] 113 mg/dL *HI* (05/04/22 3:04 PM) Hct [35-44 %] 37.3 % (05/04/22 3:04 PM) HDL [>35 mg/dL] 65 mg/dL (05/04/22 3:04 PM) Hgb [11.7-15.0 g/dL] 12.2 g/dL (05/04/22 3:04 PM) K [3.5-5.1 mmol/L] 4.3 mmol/L (05/04/22 3:04 PM) LDL Chol, Calculated [50-130 mg/dL] 79 m g/dL (05/04/22 3:04 PM) MCH [28-33 pg] 29.3 pg (05/04/22 3:04 PM) MCHC [32-36 g/dL] 32.7 g/dL (05/04/22 3:04 PM) MCV [81-96 fL] 89.4 fL (05/04/22 3:04 PM) Na [137-145 mmol/L] 134 mmol/L *LOW* (05/04/22 3:04 PM) Plts [150-350 K/uL] 249 K/uL (05/04/22 3:04 PM) RBC [3.90-5.00 M/uL] 4.17 M/uL (05/04/22 3:04 PM) T Bili [0.2-1.3 mg/dL] 0.4 mg/dL (05/04/22 3:04 PM) Prot [6.3-8.2 g/dL] 6.8 g/dL (05/04/22 3:04 PM) TG [<200 mg/dL] 160 mg/dL (05/04/22 3:04 PM) TSH [0.47-4.68 uIU/mL] 1.63 uIU/mL 5 (05/04/22 3:04 PM) WBC [4.0-10.4 K/uL] 7.08 K/uL (05/04/22 3:04 PM) 1Result Comment: Testing Performed By: Dept of Pathology [facility] [address], [facility] [address], [place] [address] 2Result Comment: Testing Performed By: Dept of Pathology [facility] [address], [address] [place], [place] [address], [place] [address] 3Result Comment: Testing Performed By: Dept of Pathology [facility] [address], [address] [place], [place] [address], [place] [address] 4Result Comment: Testing Performed By: Dept of Pathology [facility] [address], [address] [place], [place] [address], [place] [address] 5Result Comment: Testing Performed By: Dept of Pathology [facility] [address], [address] [place] [address] [place], [place] [address] Social History Social History Type Response Tobacco 1 Smoking Status Never smoked cigaret chung Sex Female 1quit 1985 Patient Care team information Personnel Name: MARY Oseguera Jill Nicole Address: Address: [address] [place] [address], [place] [address]
--- OUTSIDE RECORDS SUMMARY | 2022-12-12 21:45 | External Medical Summary | Summary of Care ---
Author Name Unknown Organization [place] [address] Care Team Providers Care Integration Architect Name Role Phone Deja Oseguera MARY Primary Care Provider Reason for Visit * Auth/Cert Specialty Diagnoses / Procedures Referred By Yonny west Referred To Contact Diagnoses Lumbar radiculopathy Lumbar radiculopathy [M54.16] Procedures INJECT DX/THER SUBSTANCE INTERLAMINAR LUMBAR/SACRAL W IMAGE GUIDE INJECTION SPINE LUMBAR OR SACRAL Referral ID Status Reason Start Date Expiration Date Visits Re quested Visits Authorized [id number] Encounter Details Date Type Department Care Team Description 12/08/2021 Hospital Encounter OR [facility], Operating Room [facility] [address] [place] [address] Ryder Curry DO [address] [place] [address] Allergies No known active allergiesdocumented as of this encounter (statuses as of 12/09/2021) Medications Medication Sig Dispensed Refills Start Date [...] units Capsule Take by mouth. 0 Active [place] 3 1200 MG CAPS 0 Active Biotin [...] as of this encounter (statuses as of 12/09/2021) Active Problems Problem Noted Date Prediabetes 08/08/2017 [...] as of this encounter (statuses as of 12/09/2021) Resolved Problems Problem Noted Date Resolved Date Encounter for examination fo r normal comparison and control in clinical research program 08/28/2017 10/21/2019 Overview: DO NOT DELETE [facility] DETECT Study: Project # [id number], Tax Compliance Representative: Jace Arrington, PhD. SUMMARY: Goal: Establish test [...] contact study staff at ; after hours Tax Compliance Representative via the [facility] winch operator . Please contact study team before resolving/deleting from patients problem list. Study phone number: [phone]. Diagnosis changed due to Research Module. Go to Snapshot for study details. Encounter for examination fo r normal comparison and control in clinical research program 08/28/2017 11/18/2021 Overview: DO NOT DELETE - [facility] Study: Project # [id number], Tax Compliance Representative: Nando Villeda, MS, MPH. SUMMARY: Goal: Establish [...] contact study staff at ; after hours Tax Compliance Representative via the [facility] winch operator . - Please contact study team before resolving/deleting from patients problem list. Study phone number: [phone]. Diagnosis changed due to Research Module. Go to [facility] for study details. Sciatica without lumbago 03/31/2016 [...] as of this encounter (statuses as of 12/09/2021) Immunizations Name Administration Dates Next Due PPD [...] Sign Reading Time Taken Comments Blood Pressure 163/71 12/08/2021 1:13 PM EDT Pulse 75 12/08/2021 1:13 PM EDT Temperature 36.4 °C (97.5 °F) 12/08/2021 12:50 PM E DT Respiratory Rate 16 12/08/2021 1:13 PM EDT Oxygen Saturation 99% 12/08/2021 1:13 PM EDT Inhaled Oxygen Concentration - - Weight - - Height - - Body Mass Index - - documented in this encounter Discharge Instructions * Discharge Instr - AVS* Ryder Carter DO Patricio - 12/08/2021 1:04 PM EDT [facility] [address] [place] [address] Discharge Date: 12/08/2021 You may call [facility] at [phone] during business hours. For after-hours emergencies call 911. Your attending physician at the time of your discharge was: Ryder Curry DO [address] [place] [address] The information below provides you with the [...] unless otherwise instructed by your family physician, printing engineer or the anticoagulation clinic. Additional Instructions: {[id number]} Driving: . Date you may return to work or school: Follow Up: Call [phone] in 4 weeks. documented in this encounter Progress Notes * Ryder Curry DO - 12/08/2021 1:04 PM EDT [facility] [address] [address] OUTPATIENT SURGERY DISCHARGE SUMMARY NOTE Name: Laurel Rios Location: OR [facility]/OR Date: 12/08/2021 Time: 1:04 PM Surgery Date: 12/08/2021 Procedure: Procedure(s): INJECTION SPINE LUMBAR OR SACRAL No laterality found for procedure #1 Surgeon: Surgeon(s): Ryder Curry DO Discharge Diagnosis: Lumbar radicular pain After examination of this patient, I have determined she is ready for discharge to home when the patient meets criteria. Discharge instructions were given to the patient. documented in this encounter H&P Notes * Ryder Curry DO - 12/08/2021 7:04 AM EDT Interventional Pain Pre-Procedure Assessment Name:Laurel Rios Date:12/08/2021 Time:7:05 AM Procedure(s): · Caudal epidural steroid injection [...] Admission medications Medication Sig Last Dose Discont. Aspirin-Caffeine 500-32.5 MG Oral Tablet Take by mouth . traMADol HCl 50 MG Oral Tablet (Ultram) Aspirin 325 MG Oral Tablet Delayed Release Take 325 mg by mouth 3 times a day. Patient takes OTC for pain Patient not taking: Reported on 08/04/2021 dilTIAZem HCl (CARDIZEM OINTMENT) 2% DE GEL Administer into the rectum 3 times a day. Hydrocortisone (Perianal) 2.5 % External Cream (Anusol-HC) Administer into the rectum 2 times a day. Patient not taking: Reported on 09/17/2020 Witch Sheryl-Glycerin External Pad (A.E.R. Na Saucedo) Apply topically to affected area as needed. Patient not taking: Reported on 08/04/2021 Cyanocobalamin (VITAMIN B 12) 500 MCG TABS Take by mouth. glycopyrrolate (ROBINUL) 1 MG Tablet Take 1 mg by mouth 3 times a day. valsartan (DIOVAN) 80 MG Tablet Take 1 [...] Tablet Take 1,000 mg by mouth daily. Biotin 1 MG Capsule Cholecalciferol (VITAMIN D-3) 1000 units Capsule Take by mouth. Lafayette 3 1200 MG CAPS dicyclomine (BENTYL) 10 MG Capsule Take 1 Cap by mouth 4 times a day as needed for Cramping. For abdominal pain Patient not taking: Reported on 08/04/2021 DULoxetine (CYMBALTA) 20 MG CPEP 30 mg. gabapentin (NEURONTIN) 100 MG Capsule 200 mg. Take 3 times a day tiZANidine (ZANAFLEX) 4 MG Tablet Take 0.5 Tabs by mouth. polyethylene glycol 3350 (MIRALAX) 255 gram powder Take 17 g by mouth 2 times a day. Dissolve one heaping tablespoon in 8 ounces of water or juice. cyclosporine (RESTASIS) 0.05 % ophthalmic emulsion Instill 1 Drop into both eyes every 12 hours. affected eye(s) diazepam (VALIUM) 5 MG Tablet TAKE 1/2 TO ONE TABLET UP TO TWICE A DAY NEEDED FOR MUSCLE SPASM PARoxetine (PAXIL) 30 MG Tablet Take 1 Tab by mouth daily. PROGESTERONE 1000 MG/60GM EX CREA apply once daily RED YEAST RICE 600 MG PO CAPS 1 daily STOOL SOFTENER 100 MG PO TABS 1 tablet daily as needed for constipation Review of patient's allergies indicates: No Known [...] to use local anesthesia. Ryder Curry DO 12/08/2021 documented in this encounter Nursing Notes * Jennifer Gutiérrez RN - 12/08/2021 1:12 PM EDT Patient tolerated pain procedure well. Visited by Dr Curry. Ready for discharge. * Zuleyma Morrison RN - 12/08/2021 1:00 PM EDT Patient tolerating pain management injection well. documented in this encounter OR Notes * OR Surgeon - Ryder Curry DO - 12/08/2021 1:04 PM EDT OPERATIVE RECORD OR [facility], Operating Room [facility] [address] [facility] [place] [address] Laurel Rios : 1940 DOS: 12/08/2021 SERVICE: INTERVENTIONAL PAIN MANAGEMENT PRE-OP DIAGNOSIS: Lumbar [...] steroid injection for persistent low back and right lower extremity radicular pain refractory to conservative treatment. The injection procedure was reviewed, as well as the risks of bleeding, infection, headache, nerve or spinal cord injury, worsening pain, or [...] instructions following postprocedure monitoring. Ryder Curry DO 12/08/2021 1:04 PM documented in this encounter Plan of Treatment Upcoming Encounters Date Type Specialty Care Team Description 01/17/2022 Office Visit Gynecology Obstetrics Backer, MARY Rasmussen [address] [place] [address] Scheduled Procedures Name Priority Associated Diagnoses Date/Ti me COLONOSCOPY FLEXIBLE PROXIMAL DIAGNOSTIC Recall History of colon polyps Health Maintenance Due Date Last Done Comments Hepatitis C Screening 01[birth year]10/1958 Zoster Vaccines (2 of 3) 05/15/2007 03/20/2007 Alb / Creat Ratio 01/18/2018 01/18/2017 GFR - Renal Function 03/02/2018 08/31/2017, 07/29/2017, 11/14/2016, Additional history exists CKD HGB USE SMARTSET 65586 07/29/201807/29, 03/31/2016, 08/05/2015, Additional history exists CKD PHOS USE SMARTSET 49683 07/29/201807/18, 03/31/2016, 08/06/2014 Depression Screening, Annual for [...] Procedure Name Priority Date/Time Associated Diagnosis Comments XR INTRA-OP C-ARM CASE Routine 12/08/2021 1:08 PM EDT documented in this encounter Results * XR INTRA-OP C-ARM CASE (12/08/2021 1:08 PM EDT) Specimen Narrative Scheduling, Silent - 12/08/2021 1:09 PM EDT This procedure will not be read by a Radiologist. Please see operative note. documented in this encounter Administered Medications Inactive Administered Medications - up to 3 most recent administrations Medication Order MAR Action Action Date Dose Rate Site Iohexol (Omnipaque 180) inj 1 mL 1 mL, Injection, ONCE, On Mon12/08/21 at 1315, For 1 dose Given 12/08/2021 1:00 PM EDT 1 mL lidocaine 1 % inj 20 mg 20 mg (2 mL), Subcutaneous, ONCE, On Mon12/08/21 at 1315, For 1 dose Given 12/08/2021 12:58 PM EDT 20 mg Other-Specify Triamcinolone Acetonide (Kenalog) 40 MG/ML inj 40 mg 40 mg, Injection, ONCE, On Mon12/08/21 at 1315, For 1 dose Given 12/08/2021 1:00 PM EDT 40 mg documented in this encounter Active and Recently Administered Medications Times are shown in EDT. Scheduled Medication Order 12/06/2021 12/07/2021 12/08/2021 Iohexol (Omnipaque 180) inj 1 mL (COMPLETED) 1 mL, Injection, ONCE, On Mon12/08/21 at 1315, For 1 dose 1300 (Given - Provid er: Zuleyma Morrison RN - Comment: CAUDAL) lidocaine 1 % inj 20 mg (COMPLETED) 20 mg (2 mL), Subcutaneous, ONCE, On Mon12/08/21 at 1315, For 1 dose 1258 (Given - Provid er: Zuleyma Morrison RN - Comment: CAUDAL) Triamcinolone Acetonide (Kenalog) 40 MG/ML inj 40 mg (COMPLETED) 40 mg, Injection, ONCE, On Mon12/08/21 at 1315, For 1 dose 1300 (Given - Provid er: Zulemya Morrison RN - Comment: CAUDAL) documented in this encounter Advance Directives Documents on File Type Date Recorded 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
--- OUTSIDE RECORDS SUMMARY | 2022-12-12 21:45 | External Medical Summary | Summary of Care ---
Author Name Unknown Organization [facility] [place] [address] Care Team Providers Care Tailercpa Name Role Phone Deja Oseguera MARY Primary Care Provider Reason for Visit * Reason Comments Neck Pain Encounter Details Date Type Department Care Team Description 04/05/2022 Office Visit Interventional Pain Center, [facility] [address] [place] [address] CousinRyder arias, [address] [place] [address] Myofascial muscle pain*; Spondylosis of cervical region without myelopathy or radiculopathy Allergies No known active allergiesdocumented as of this encounter (statuses as of 04/05/2022) Medications Medication Sig Dispensed Refills Start Date [...] units Capsule Take by mouth. 0 Active [place] 3 1200 MG CAPS 0 Active Biotin [...] as of this encounter (statuses as of 04/05/2022) Active Problems Problem Noted Date Prediabetes 08/08/2017 [...] as of this encounter (statuses as of 04/05/2022) Resolved Problems Problem Noted Date Resolved Date Encounter for examination fo r normal comparison and control in clinical research program 08/28/2017 10/21/2019 Overview: DO NOT DELETE [facility] DETECT Study: Project # [id number], Associate Faculty: Jace Arrington, PhD. SUMMARY: Goal: Establish test [...] contact study staff at ; after hours Associate Faculty via the [facility] hospital remote pilot operator . Please contact study team before resolving/deleting from patients problem list. Study phone number: [phone]. Diagnosis changed due to Research Module. Go to Snapshot for study details. Encounter for examination fo r normal comparison and control in clinical research program 08/28/2017 11/18/2021 Overview: DO NOT DELETE - [facility] DETECT Study: Project # [id number], Associate Faculty: Nando Villeda, MS, MPH. SUMMARY: Goal: Establish [...] contact study staff at ; after hours Associate Faculty via the [facility] remote pilot operator . - Please contact study team before resolving/deleting from patients problem list. Study phone number: [phone]. Diagnosis changed due to Research Module. Go [...] as of this encounter (statuses as of 04/05/2022) Immunizations Name Administration Dates Next Due PPD [...] of this encounter Progress Notes * Ryder Carter Patricio, DO - 04/05/2022 3:04 PM EST [facility] PROCEDURE NOTE Name: Laurel Rios Date: 04/05/2022 Time: 3:05 PM Location:[facility] Service: Pain Management Date of Procedure: Diagnosis: Myofascial Pain Provider: Ryder Curry DO Procedure: Trigger Points Injections - Local Anesthetic Estimated Blood Loss: None Urine output: None [...] without heart failure I11.9 • Prediabetes R73.03 [place] [employer]est[employer] Score: III She is stable with normal heart sounds and lungs clear to auscultation. Trigger points left cervical Technique: Today, we discussed alternative plans, benefits and potential risks which include, but not limited to bleeding, infections, nerve damage, pneumothorax, or failure of the procedure. She agreed to proceed with this procedure and an informed written consent was obtained. Time-out was taken to properly identify patient and injection sites. I infiltrated 2 trigger pointsin the cervical paravertebral musculature with 1 mL 1% preservative-free lidocaine at each site using a 27 gauge needle after an alcohol prep. She tolerated injection well without immediate complication. She will be re-evaluated on as-needed basis. Ryder Curry DO * Ryder Curry DO - 04/05/2022 3:01 PM EST Name: Laurel Rios Date: 04/05/2022 HPI: Laurel Rios is a 82 year old female who presents for re-evaluation left- sided cervical complaints. Most of her painful complaints over the past year or so have been lumbar related but this is under reasonable control at this point. Most recent epidural injection was in November of 2021. States that for several years she is been experiencing varying degrees of cervical pain but also complaints of I “puffiness and redness for which she has been seen by ophthalmology on several occasions.She does not have upper extremity radicular pain or motor weakness. The current symptoms are more isolated to the left side in the mid cervical region. She does get reasonable improvement with chiropr actic manipulation which she just had recently. This has improved things but she just has residual area of discomfort. History: Past Medical History: Diagnosis Date • Benign hypertension with CKD (chronic kidney disease) stage III ([facility]) 01/18/2017 • Cervicalgia due to muscle [...] performed by Ryder Curry, DO at [facility] • INJECT DX/THER SUBSTANCE INTERLAMINAR LUMBAR/SACRAL W IMAGE GUIDE 04/29/2021 INJECTION SPINE LUMBAR OR SACRAL performed by Ryder Curry, DO at [facility] • INJECT DX/THER SUBSTANCE INTERLAMINAR LUMBAR/SACRAL W IMAGE GUIDE 08/04/2021 INJECTION SPINE LUMBAR OR SACRAL performed by Ryder Carter Curry, DO at [facility] • INJECT DX/THER SUBSTANCE INTERLAMINAR LUMBAR/SACRAL W IMAGE GUIDE 12/08/2021 INJECTION SPINE LUMBAR OR SACRAL performed by Ryder Curry, DO at [facility] • LAPAROSCOPY; CHOLECYSTECTOMY 1991 Cholecystectomy, Laproscopic • REVISE UPPER EYELID 06/10/2010 both eyes upper lid blepharoplasties, Dr. Hu • TOTAL HYSTERECTOMY 1989 still has one ovary • TREAT ANKLE FRACTURE W/MANIPULATION Left surgical repair ankle fracture Current Outpatient Medications Medication Sig Dispense Refill • RED YEAST RICE 600 MG PO CAPS 1 daily • cycloSPORINE 0.05 % Ophthalmic Emulsion Instill [...] times a day 1 Cap 0 • DULoxetine (CYMBALTA) 20 MG CPEP 30 mg. • Cholecalciferol (VITAMIN D-3) 1000 units Capsule Take by mouth. • [place] 3 1200 MG CAPS • Biotin 1 [...] . • dilTIAZem HCl (CARDIZEM OINTMENT) 2% [place] GEL Administer into the rectum 3 times a day. 30 g 3 • Aspirin 325 MG Oral Tablet Delayed Release Take 1 Tablet by mouth in the morning and 1 Tablet at noon and 1 Tablet before bedtime. Patient takes OTC for pain. • Aspirin-Caffeine 500-32.5 MG Oral Tablet Take by mouth . • Donepezil HCl 10 MG Oral Tablet (Aricept) Take 1 Tablet by mouth in the morning. Take with largest meal of the day.. • STOOL SOFTENER 100 MG PO TABS 1 tablet daily as needed for constipation (Patient not taking: ) • PROGESTERONE 1000 MG/60GM EX CREA apply once daily (Patient not taking: ) • diazepam (VALIUM) 5 MG Tablet TAKE 1/2 TO ONE TABLET UP TO TWICE A DAY NEEDED FOR MUSCLE SPASM 180 Tab 1 • tiZANidine (ZANAFLEX) 4 MG Tablet Take 0.5 Tabs by mouth. 1 Tab 0 • dicyclomine (BENTYL) 10 MG Capsule Take [...] not taking: Reported on 04/29/2021 ) • Hydrocortisone (Perianal) 2.5 % External Cream (Anusol-HC) Administer into the rectum 2 times aday. 30 g 3 • traMADol HCl 50 MG Oral Tablet (Ultram) (Patient not taking: Reported on 04/29/2021 ) No current facility-administered medications for this visit. Review of patient's allergies indicates: No Known Allergies Social History Tobacco Use Smoking Status Former • Types: Cigarettes • Quit date: 03/19/1988 • Years since quittin.0 Smokeless Tobacco Never Tobacco Comments quit 1987 Social History Substance and Sexual Activity Alcohol Use No ROS CONSTITUTIONAL: Denies anorexia, weight loss, fever, night sweats RESPIRATORY: Denies shortness of breath, wheezing, productive cough CARDIOVASCULAR: Denies chest pains, irregular heartbeat HEME: Denies easy bruising , anti-coagulation therapy ROS EXAM: Remainder of ROS negative as discussed above in the HPI PHYSICAL EXAM: There were no vitals taken for this visit. Cervical range of motion shows some limitation to extension rotation left. There is active trigger points in the left cervical paravertebral musculature. There is some tenderness over the cervical facet joints on the left as well. She is +5 over 5 motor function the upper extremities. There are no gross sensory deficits noted. She is +2 over 4 biceps, triceps, brachial radialis reflexes bilaterally. 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 She did wish to proceed and her injection will be documented separately. Ryder Curry DO 04/05/2022 3:01 PM documented in this encounter Nursing Notes * Dominique Walker LPN - 04/05/2022 2:37 PM EST Patient here for neck pain-states it causes eyes to swell when flared up Relieved with chiro No MRI of cspine recently Saw in past documented in this encounter Plan of Treatment Scheduled Procedures Name Priority Associated Diagnoses Date/Ti me COLONOSCOPY FLEXIBLE PROXIMAL DIAGNOSTIC Recall History of colon polyps Health Maintenance Due Date Last Done Comments Zoster Vaccines (2 of 3) 05/15/2007 03/20/2007 Alb / Creat Ratio 01/18/2018 01/18/2017 GFR - Renal Function 03/02/2018 08/31/2017, 07/29/2017, 11/14/2016, Additional history exists CKD HGB USE SMARTSET 90552 07/29/201807/29, 03/31/2016, 08/05/2015, Additional history exists CKD PHOS USE SMARTSET 79903 07/29/201807/18, 03/31/2016, 08/06/2014 Depression Screening, Annual for [...] as of this encounter Visit Diagnoses Diagnosis Myofascial muscle pain- Primary Mylagia and myositis, unspecified Spondylosis of cervical region without myelopathy or radiculopathy Cervical spondylosis without myelopathy documented in this encounter Care Teams Tailercpa Relationship Specialty Start Date End Date Deja Oseguera CRNP [address] [place] [address] PCP - General Nurse Practitioner 12/24/20 documented as of this encounter
--- OUTSIDE RECORDS SUMMARY | 2022-12-12 21:46 | External Medical Summary | Summary of Care ---
Author Name Unknown Organization [place] [address] Care Team Providers Care Administrative Sales Assistant Name Role Phone Deja Oseguera Primary Care Provider Encounter Details Date Type Department Care Team Description 11/23/2021 Orders Only Outcomes Research Department [address] [place] [address] Diane Madison CHRA MyCode Research Other*[id number] Allergies No known active allergiesdocumented as of this encounter (statuses as of 11/23/2021) Medications Medication Sig Dispensed Refills Start Date [...] 5 10/13/2016 Active Additional Information Patient not taking. Reported on 08/04/2021 Cholecalciferol (VITAMIN D-3) 1000 units Capsule Take by mouth. 0 Active [place] 3 1200 MG CAPS 0 Active Biotin [...] Sheryl) Apply topically to affected area as needed. 0 Active dilTIAZem HCl (CARDIZEM OINTMENT) 2% [place] GEL Administer into the rectum 3 times a day. 30 g 3 01/15/2020 Active Hydrocortisone (Perianal) 2.5 % External Cream (Anusol-HC) Administer into the rectum 2 times a day. 30 g 3 01/15/2020 Active Additional Information Patient not taking. Reported on 09/17/2020 Aspirin 325 MG Oral Tablet Delayed Release Take 325 mg by mouth 3 times a day. Patient takes OTC for pain 0 Active traMADol HCl 50 MG Oral Tablet (Ultram) 0 03/15/2021 Active Aspirin-Caffeine 500-32.5 MG Oral Tablet Take by mouth . 0 Active documented as of this encounter (statuses as of 11/23/2021) Active Problems Problem Noted Date Prediabetes 08/08/2017 [...] as of this encounter (statuses as of 11/23/2021) Resolved Problems Problem Noted Date Resolved Date Encounter for examination fo r normal comparison and control in clinical research program 08/28/2017 10/21/2019 Overview: DO NOT DELETE [facility] DETECT Study: Project # [id number], Business Office Representative: Jace Arrington, PhD. SUMMARY: Goal: Establish [...] study staff at ; after hours Business Office Representative via the [facility] strap folding machine operator . Please contact study team before resolving/deleting from patients problem list. Study phone number: [phone]. Diagnosis changed due to Research Module. Go to Snapshot for study details. Encounter for examination fo r normal comparison and control in clinical research program 08/28/2017 11/18/2021 Overview: DO NOT DELETE - [facility] Study: Project # [id number], Business Office Representative: Nando Villeda, MS, MPH. SUMMARY: Goal: [...] study staff at ; after hours Business Office Representative via the [facility] hospital strap folding machine operator . - Please contact study team before resolving/deleting from patients problem list. Study phone number: [phone]. Diagnosis changed due to Research Module. Go [...] as of this encounter (statuses as of 11/23/2021) Immunizations Name Administration Dates Next Due PPD [...] Encounters Date Type Specialty Care Team Description 12/08/2021 Hospital Encounter Surgery Ryder Curry DO [address] [place] [address] 12/08/2021 Surgery Surgery Cousins, Ryder Machado, [address] [place] [address] INJECTION SPINE LUMBAR OR SACRAL 01/17/2022 Office Visit Gynecology Obstetrics Backer, MARY Rasmussen [address] [place] [address] Scheduled Orders Name Type Priority Associated Diagnoses Orde r Schedule MYCODE SUBSEQUENT ADULT Lab Routine MyCode Research Other*[id number] Every 6 Months for 2 Occurrences starting 11/23/2021 until 12/13/2022 Scheduled Procedures Name Priority Associated Diagnoses Date/Ti me INJECTION SPINE LUMBAR OR SACRAL Lumbar radiculopathy 12/08/2021 1:00 PM EDT COLONOSCOPY FLEXIBLE PROXIMAL DIAGNOSTIC Recall History of colon polyps Health Maintenance Due Date Last Done Comments Hepatitis C Screening 01[birth year]10/1958 Zoster Vaccines (2 of 3) 05/15/2007 03/20/2007 Alb / Creat Ratio 01/18/2018 01/18/2017 GFR - Renal Function 03/02/2018 08/31/2017, 07/29/2017, 11/14/2016, Additional history exists CKD HGB USE SMARTSET 66166 07/29/201807/29, 03/31/2016, 08/05/2015, Additional history exists CKD PHOS USE SMARTSET 55352 07/29/201807/18, 03/31/2016, 08/06/2014 Depression Screening, Annual for Pts 12 and Over 08/11/2018 08/11/2017 Prediabetes-Yearly Hemoglobin A1c 08/24/2018 08/24/2017 DXA Scan 03/15/2019 03/15/2012 COVID-19 Vaccine (3 - Booster for Pfizer series) 10/12/2020 05/15/2020, 04/24/2020 Influenza Vaccine (FLU shot) (#1) [...] as of this encounter Visit Diagnoses Diagnosis MyCode Research Other*[id number] Lumbar radiculopathy Thoracic or lumbosacral neuritis or radiculitis, unspecified documented in this encounter Advance Directives Documents on File Type Date Recorded Patient Maintenance Technician 2Nd Shift Expl anation Advanced Directive Advanced Directive Advanced [...] DIRECTIVE LETTER OF ADVANCE DIRECTIVE Care Teams Administrative Sales Assistant Relationship Specialty Start Date End Date Deja Oseguera CRNP [address] [place] [address] PCP - General Nurse Practitioner 12/24/20 documented as of this encounter
--- OUTSIDE RECORDS SUMMARY | 2022-12-12 21:46 | External Medical Summary | Summary of Care ---
Author Name Unknown Organization [place] [address] Care Team Providers Care Family Therapist Name Role Phone Deja Oseguera MARY Primary Care Provider Reason for Visit * Reason Onset Date Comments Follow Up 07/16/2021 Encounter Details Date Type Department Care Team Description 07/16/2021 Telephone Interventional Pain Center, [facility] [address] [place] [address] Cousins, Ryder Machado, [address] [place] [address] Follow Up Allergies No known active allergiesdocumented as of this encounter (statuses as of 07/16/2021) Medications Medication Sig Dispensed Refills Start Date [...] units Capsule Take by mouth. 0 Active [place] 3 1200 MG CAPS 0 Active Biotin [...] 0 Active dilTIAZem HCl (CARDIZEM OINTMENT) 2% [place] GEL Administer into the rectum 3 times a day. 30 g 3 01/15/2020 Active Additional Information Patient not taking. Reported on 04/29/2021 Hydrocortisone (Perianal) 2.5 % External Cream (Anusol-HC) Administer into the rectum 2 times a day. 30 g 3 01/15/2020 Active Additional Information Patient not taking. Reported on 09/17/2020 Aspirin 325 MG Oral Tablet Delayed Release Take 325 mg by mouth 3 times a day. Patient takes OTC for pain 0 Active traMADol HCl 50 MG Oral Tablet (Ultram) 0 03/15/2021 Active documented as of this encounter (statuses as of 07/16/2021) Active Problems Problem Noted Date Encounter for examination fo r normal comparison and control in clinical research program 08/28/2017 Overview: DO NOT DELETE [facility] DETECT Study: Project # [id number], Robotic Weld Technician: Nando Villeda, MS, MPH. SUMMARY: Goal: Establish [...] contact study staff at ; after hours Robotic Weld Technician via the [facility] hospital pulp mill operator . - Please contact study team before resolving/deleting from patients problem list. Study phone number: [phone]. Diagnosis changed due to Research Module. Go to Snapshot for study details. Prediabetes 08/08/2017 Overview: Per Prediabetes protocol #1 [...] as of this encounter (statuses as of 07/16/2021) Resolved Problems Problem Noted Date Resolved Date Encounter for examination fo r normal comparison and control in clinical research program 08/28/2017 10/21/2019 Overview: DO NOT DELETE [facility] DETECT Study: Project # [id number], Robotic Weld Technician: Jace Arrington, PhD. SUMMARY: Goal: Establish test [...] contact study staff at ; after hours Robotic Weld Technician via the [facility] hospital pulp mill operator . Please contact study team before resolving/deleting from patients problem list. Study phone number: [phone]. Diagnosis changed due to Research Module. Go [...] as of this encounter (statuses as of 07/16/2021) Immunizations Name Administration Dates Next Due PPD [...] as of this encounter Miscellaneous Notes * Addendum Note - DO Dinora Andrew 07/16/2021 11:52 AM EDT Addended by: RYDER SHARP on: 07/16/2021 11:52 AM Modules accepted: Orders * Telephone Encounter - Ryder Sharp DO - 07/16/2021 11:52 AM EDT Can be scheduled in a few weeks. * Telephone Encounter - MARIFER Monson - 07/16/2021 11:41 AM EDT Patient states she had 70% relief from her last injection. The pain is back and she would like another injection. documented in this encounter Plan of Treatment Upcoming Encounters Date Type Specialty Care Team Description 07/30/2021 Office Visit Gynecology Obstetrics Backer, MARY Rasmussen [address] [facility] [place] [address] Scheduled Orders Name Type Priority Associated Diagnoses Orde r Schedule INJECT DX/THER SUBSTANCE INTERLAMINAR LUMBAR/SACRAL W IMAGE GUIDE Procedures Routine Lumbar radicular pain Ordered: 07/16/2021 Scheduled Procedures Name Priority Associated Diagnoses Date/Ti me INJECTION SPINE LUMBAR OR SACRAL Lumbar radiculopathy COLONOSCOPY FLEXIBLE PROXIMAL DIAGNOSTIC Recall History of colon polyps Health Maintenance Due Date Last Done Comments Zoster Vaccines (2 of 3) 05/15/2007 03/20/2007 CKD GFR USE SMARTSET 09601 03/02/201808/31, 07/29/2017, 11/14/2016, Additional history exists CKD HGB USE SMARTSET 38762 07/29/201807/29, 03/31/2016, 08/05/2015, Additional history exists CKD PHOS USE SMARTSET 00036 07/29/201807/18, 03/31/2016, 08/06/2014 Depression Screening, Annual for Pts 12 and Over 08/11/2018 08/11/2017 Prediabetes-Yearly Hemoglobin A1c 08/24/2018 08/24/2017 BASIC METABOLIC PANEL (BMP) FOR HTN YEARLY 08/31/2018 08/31/2017, 07/29/2017, 11/14/2016, Additional history exists Dexa Scan 03/15/2019 03/15/2012 DIABETES SCREEN EVERY 3 YRS-AGE 45 AND ABOVE 08/31/2020 08/31/2017, 08/24/2017, 07/29/2017, Additional history exists COVID-19 Vaccine (3 - Booster for Pfizer series) 10/12/2020 05/15/2020, 04/24/2020 Influenza Vaccine (FLU shot) (Season Ended) 2021 12/16/2019, 12/21/2018, 12/21/2017, Additional history exists [...] Documents on File Type Date Recorded Patient Putty Glazer Expl anation Advanced Directive Advanced Directive Advanced [...] DIRECTIVE LETTER OF ADVANCE DIRECTIVE Care Teams Family Therapist Relationship Specialty Start Date End Date Deja Oseguera CRNP [address] [place] [address] PCP - General Nurse Practitioner 12/24/20 documented as of this encounter
--- OUTSIDE RECORDS SUMMARY | 2022-12-12 21:46 | External Medical Summary | Summary of Care ---
Author Name Unknown Organization [place] [address] Care Team Providers Care Hospice Home Care Coordinator Name Role Phone Deja Oseguera MARY Primary Care Provider Reason for Visit * Reason Onset Date Comments Follow Up 09/01/2021 Encounter Details Date Type Department Care Team Description 09/01/2021 Telephone Interventional Pain Center, [facility] [address] [place] [address] CousinsRyder, [address] [place] [address] Follow Up Allergies No known active allergiesdocumented as of this encounter (statuses as of 09/01/2021) Medications Medication Sig Dispensed Refills Start Date [...] units Capsule Take by mouth. 0 Active [place] 3 1200 MG CAPS 0 Active Biotin [...] 0 Active dilTIAZem HCl (CARDIZEM OINTMENT) 2% [place] GEL Administer into the rectum 3 times [...] as of this encounter (statuses as of 09/01/2021) Active Problems Problem Noted Date Encounter for examination fo r normal comparison and control in clinical research program 08/28/2017 Overview: DO NOT DELETE - [facility] DETECT Study: Project # [id number], Medical Voucher Clerk: Nando Villeda, MS, MPH. SUMMARY: Goal: Establish [...] contact study staff at ; after hours Medical Voucher Clerk via the [facility] hospital formation fracturing operator . - Please contact study team before resolving/deleting from patients problem list. Study phone number: [phone]. Diagnosis changed due to Research Module. Go [...] as of this encounter (statuses as of 09/01/2021) Resolved Problems Problem Noted Date Resolved Date Encounter for examination fo r normal comparison and control in clinical research program 08/28/2017 10/21/2019 Overview: DO NOT DELETE [facility] DETECT Study: Project # [id number], Medical Voucher Clerk: Jace Arrington, PhD. SUMMARY: Goal: Establish test [...] contact study staff at ; after hours Medical Voucher Clerk via the [facility] formation fracturing operator . Please contact study team before resolving/deleting from patients problem list. Study phone number: [phone]. Diagnosis changed due to Research Module. Go [...] as of this encounter (statuses as of 09/01/2021) Immunizations Name Administration Dates Next Due PPD [...] Miscellaneous Notes * Telephone Encounter - MARIFER Monson - 09/01/2021 10:50 AM EDT Patient states she has had 99% relief from her last injection. She says she is still feeling prettygood. documented in this encounter Plan of Treatment Upcoming Encounters Date Type Specialty Care Team Description 10/25/2021 Office Visit Gynecology Obstetrics Backer, MARY Rasmussen [address] [facility] [place] [address] Scheduled Procedures Name Priority Associated Diagnoses Date/Ti me COLONOSCOPY FLEXIBLE PROXIMAL DIAGNOSTIC Recall History of colon polyps Health Maintenance Due Date Last Done Comments Zoster Vaccines (2 of 3) 05/15/2007 03/20/2007 CKD GFR USE SMARTSET 78860 03/02/201808/31, 07/29/2017, 11/14/2016, Additional history exists CKD HGB USE SMARTSET 55557 07/29/201807/29, 03/31/2016, 08/05/2015, Additional history exists CKD PHOS USE SMARTSET 82563 07/29/201807/18, 03/31/2016, 08/06/2014 Depression Screening, Annual for [...] Not on filedocumented as of this encounter Advance Directives Documents on File Type Date Recorded Patient Tire Fabric Impregnating Range Tender Expl anation Advanced Directive Advanced Directive Advanced [...] DIRECTIVE LETTER OF ADVANCE DIRECTIVE Care Teams Hospice Home Care Coordinator Relationship Specialty Start Date End Date Deja Oseguera CRNP [address] [place] [address] PCP - General Nurse Practitioner 12/24/20 documented as of this encounter
--- OUTSIDE RECORDS SUMMARY | 2022-12-12 21:46 | External Medical Summary | Continuity of Care Document ---
Author Name Unknown Organization [place] [id number] [employer] [facility] [address] Address [address] [place] [address] [id number] Care Team Providers Care Splitter Hand Name Role Phone Deja Oseguera Primary Care Physician [phone] Encounter [facility] [id number] Date(s): 03/31/21 - 03/31/21 [facility] [address] [employer] [facility] [address] [facility] [address] [place] [id number] Encounter Diagnosis Low back pain(Discharge Diagnosis) - 03/31/21 SI (sacroiliac) joint dysfunction(Discharge Diagnosis) - 03/31/21 Discharge Disposition: Home or Self Care Attending Physician: BETTY Pérez Jennifer R Referring Physician: BETTY Pérez Jennifer R Allergies, Adverse Reactions, Alerts Substance Reaction Severity Status predniSONE severe depression Active Immunizations Given and Recorded Vaccine Date Status Refusal Reason influenza virus vaccine, inactivated 12/22/20 Give n influenza virus vaccine, inactivated 1 12/16/19 Re corded influenza virus vaccine, inactivated 12/21/18 Sanjeev rded pneumococcal 23-valent vaccine 2 10/13/16 Recorded pneumococcal 23-valent vaccine 3 08/16/02 Recorded pneumococcal 13-valent vaccine 4 07/08/15 Recorded tetanus/diphtheria/pertuss, acel (Tdap) 5 12/20/11 Recorded zoster vaccine live 6 03/20/07 Recorded 1Result Comment: [facility] 2Result Comment: 2019-11-27: Historical information-source unspecified 3Result Comment: 2019-11-27: Historical information-source unspecified 4Result Comment: 2019-11-27: Historical information-source unspecified 5Result Comment: 2019-11-27: Historical information-source unspecified 6Result Comment: 2019-11-27: Historical information-source unspecified Medications Anusol-HC 2.5% rectal cream Start: 11/26/19 13:21:00 EDT, 1 appl, OK, tid, Disp# 30 g, Refills: 1, to affected area, Pharmacy: [facility]/pharmacy #[id number], 160, cm, 08/26/19 13:50:00 EDT, Height Start Date: 11/26/19 Status: Ordered ascorbic acid Start: 01/16/18 13:53:00 EDT, 1,000 mg =, Daily Start Date: 01/16/18 Status: Ordered biotin Start: 01/16/18 13:54:00 EDT, 1 mg = Start Date: 01/16/18 Status: Ordered chondroitin/glucosamine/methylsulfonylmethane with Hyaluronic Acid oral tablet Start: 10/04/18 13:29:00 EDT, 1 or 2 daily with meal Start Date: 10/04/18 Status: Ordered diazepam 5 mg oral tablet [...] 10/19/15 13:31:00 Start Date: 10/19/15 Status: Ordered Ocuvite Extra oral tablet Start: 08/10/16 13:14:00, 1 tab, PO, Daily Start Date: 08/10/16 Status: Ordered Davis-3 oral capsule Start: 01/16/18 13:54:00 EDT, 1,200 mg =, Daily Start Date: 01/16/18 Status: Ordered oxyCODONE 5 mg oral tablet Start: 08/19/20 10:26:00 EDT, 1 tab, PO, q6h, Disp# 10 tab, Refills: 0, Note to Pharmacy: continuedtherapy, PRN: as needed for pain, Pharmacy: [id number] Start Date: 08/19/20 Status: Ordered Paxil Start: 04/01/19 13:51:00 EST, 30 mg =, PO, bid Start Date: 04/01/19 Status: Ordered Paxil 30 mg oral tablet Start: 08/17/12 10:26:00 EDT, 2 tab, PO, Daily Start Date: 08/17/12 Status: Ordered red yeast rice 600 mg oral capsule Start: 08/17/12 10:34:00, 2 cap, PO, Daily Start Date: 08/17/12 Status: Ordered Restasis Start: 10/19/15 13:31:00, 1 drop, both eyes, bid Start Date: 10/19/15 Status: Ordered traMADol 50 mg oral tablet Start: 03/15/21 8:20:00 EST, 1 tab, PO, Daily, Disp# 30 tab, Refills: 0, Note to Pharmacy: PDMP reviewed, PRN: as needed for pain, Pharmacy: [id number] Start Date: 03/15/21 Stop Date: 04/14/21 Status: Ordered tretinoin 0.05% topical cream Start: 08/10/16 13:40:00, 1 appl, topical, qhs, Disp# 45 g, Refills: 1, To involved face nightly Start Date: 08/10/16 Status: Ordered unknown medication Start: 04/18/18 13:40:00 EST, Note to Pharmacy: [facility] Start Date: 04/18/18 Status: Ordered valsartan 80 mg oral tablet See Instructions, Disp# 90 tab, Refills: 3, TAKE 1 TABLET DAILY, Pharmacy: [facility] Start Date: 09/28/20 Status: Ordered Vitamin D3 5000 intl units oral capsule Start: 11/07/17 14:30:00 EDT Start Date: 11/07/17 Status: Ordered Zanaflex 4 mg oral tablet Start: 11/09/15 15:42:00, 1 tab, PO, q8h, Disp# 90 tab, Refills: 2, Begin with a half tablet and advance to a full tablet as tolerated, Pharmacy: [id number] Start Date: 11/09/15 Stop Date: 02/07/16 Status: Ordered Mental Status 03/31/21 Barriers to Learning one year None evide nt Mandatory Health Literacy Documentation Yes Health Literacy Communication Barriers N ever Problem List Condition Effective Dates Status Health Status Inform ant Hallux rigidus(Confirmed) Active Ankle fracture(Confirmed) 1 Active Arm pain, left(Confirmed) Active Right hip pain(Confirmed) Active Left knee pain(Confirmed) Active Upper back pain(Confirmed) Active Cervical spondylosis(Confirmed) Active Chronic kidney disease (CKD) , stage III (moderate)(Confirmed) Active Comedone(Confirmed) Active Left knee DJD(Confirmed) Active CTS (carpal tunnel syndrome)(Confirmed) Active Excessive sweating(Confirmed) Active Foot pain(Confirmed) Active Toe fracture, left(Confirmed) Active Fracture of phalanx of right ring finger(Confirmed) Active Right hand pain(Confirmed) Active Heart(Confirmed) Active Right hip pain(Confirmed) Active Hip pain, right(Confirmed) Active S/P carpal tunnel release(Confirmed) Active History of basal cell carcin na of skin(Confirmed) Active Hypertension(Confirmed) Active Hypothyroidism(Confirmed) Active IBS (irritable bowel syndrome)(Confirmed) Active Shoulder impingement(Confirmed) Active Heat intolerance(Confirmed) Active LVH (left ventricular hypertrophy)(Confirmed) Active Low back pain(Confirmed) Active Chronic myofascial pain(Confirmed) Active Neck pain(Confirmed) 2 Active Tinea unguium(Confirmed) Active 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 Right arm pain(Confirmed) Active Toe pain, left(Confirmed) Active Right hand paresthesia(Confirmed) Active Peripheral vascular disease(Confirmed) Active Poor posture(Confirmed) Active PTSD (post-traumatic stress disorder)(Confirmed) Active Pre-op exam(Confirmed) Active Radicular pain in right arm(Confirmed) Active Sacroiliitis(Confirmed) Active Sacroiliac joint pain(Confirmed) Active Seborrheic keratoses(Confirmed) Active Right shoulder pain(Confirmed) Active Left shoulder pain(Confirmed) Active Shoulder pain, left(Confirmed) Active Cervical spinal stenosis(Confirmed) Active Right ankle sprain(Confirmed) Active 1B/L 2shoulder Diagnosis Diagnosis Type Effective Dates Health Status Clinical Service Informant Low back pain Discharge Diagnosis 03/31/21 Non-Specified SI (sacroiliac) joint dysfunction Discharge Diagnosis 03/31/21 Non-Specified Procedures Procedure Date Related Diagnosis Body Site Status MRI 1 01/12/21 Completed MRI of lumbar spine 2 08/13/20 Com pleted Mammogram 3 12/23/19 Completed Mammogram 4 12/19/18 Completed Bone density scan 5 10/23/18 Compl eted MRI 6 05/30/[address] of cervical spine 7 04/24/18 Co mpleted Colonoscopy 8 12/29/16 Completed ankle bimalleolar fracture ORIF 01/08/09 Completed Biopsy of breast 1991 Comple félix Cholecystectomy 1990 Completed hysterectomy 1986 Completed tonsillectomy 1946 Completed Cataract Completed Mammogram - screening 10 Completed 1IMPRESSION: 1.No significant change in severe multilevel neural foraminal stenosis since MRI April. This is detailed above. 2.Normal cervical cord signal and caliber. 3.Mild multilevel central canal stenosis which is similar to prior exam. 2impression 1. Multilevel degenerative changes most severe at L5-S1 also associated with grade 1 anterolisthesus of L5 on S1 3ACR BI RADS CAT 0. Need addtl imaging. 4There is no mammographic evidence of malignancy. A 1 year screening mammogram is recommended. 5T-score: -1.9 61. Severe multilevel neural foraminal stenosis, as detailed above, predominantly due to facet arthrosis and uncovertebral hypertrophy 2. Mid multilevel central canal stenosis due to disc bulges with disc osteophyte complexes. Normal cervical cord signal and caliber. 7no acute fracture or subluxation multilevel discogenic changes and facet arthrosis as above 8Adenomatous polyp - repeat 5 years. 9benign 10Impression: There is no mammographic evidence of malignancy. A 1 year screening mammogram is recommended. (01/06/2022) The patient will receive written notification of the results. Social History Social History Type Response Tobacco 1 Smoking Status Never smoked cigaret chung Sex Female 1quit 1987
--- OUTSIDE RECORDS SUMMARY | 2022-12-12 21:46 | External Medical Summary | Summary of Care ---
Author Name Unknown Organization [place] [address] Care Team Providers Care Human Resources Office Manager Name Role Phone Deja Oseguera MARY Primary Care Provider Reason for Visit * Reason Comments Lumbar Pain W/radiation Encounter Details Date Type Department Care Team Description 06/25/2021 Telemedicine [facility] [address] [facility] [place] [address] Katarzyna oSliman PA-C [address] [place] [address] [place] [address] Lumbar radicular pain*; Spinal stenosis of lumbar region with neurogenic claudication Allergies No known active allergiesdocumented as of this encounter (statuses as of 06/25/2021) Medications Medication Sig Dispensed Refills Start Date [...] units Capsule Take by mouth. 0 Active [place] 3 1200 MG CAPS 0 Active Biotin [...] as of this encounter (statuses as of 06/25/2021) Active Problems Problem Noted Date Encounter for examination fo r normal comparison and control in clinical research program 08/28/2017 Overview: DO NOT DELETE - [facility] DETECT Study: Project # [id number], Regulatory Compliance Specialist: Nando Villeda, MS, MPH. SUMMARY: Goal: Establish [...] contact study staff at ; after hours Regulatory Compliance Specialist via the [facility] jackhammer operator . - Please contact study team before resolving/deleting from patients problem list. Study phone number: [phone]. Diagnosis changed due to Research Module. Go [...] as of this encounter (statuses as of 06/25/2021) Resolved Problems Problem Noted Date Resolved Date Encounter for examination fo r normal comparison and control in clinical research program 08/28/2017 10/21/2019 Overview: DO NOT DELETE [facility] DETECT Study: Project # [id number], Regulatory Compliance Specialist: Jace Arrington, PhD. SUMMARY: Goal: Establish test [...] contact study staff at ; after hours Regulatory Compliance Specialist via the [facility] jackhammer operator . Please contact study team before resolving/deleting from patients problem list. Study phone number: [phone]. Diagnosis changed due to Research Module. Go [...] as of this encounter (statuses as of 06/25/2021) Immunizations Name Administration Dates Next Due PPD [...] as of this encounter Progress Notes * Katarzyna Soliman PA-C - 06/25/2021 1:36 PM EDT Name: Laurel Rios Date: 06/25/2021 After connecting to the patient via telephone, the patient was identified by name and date of . Patient was then informed that this was a telephone call only visit. The patient agreed to participate. Visit Disposition: Routine follow-up Total call duration 23 minutes. HPI: Laurel Rios is a 81 year old female known to the Pain Management clinic presents for follow up due to low back and R LE pain. See MyG message from 05/10 for multiple concerns she would likeaddressed. Recent surgical consultation with [facility], discussed possible fusion although ultimately at this time prefers to continue conservative care, did update L spine MRI, results below. Locates pain low back pain that radiates R lateral thigh and calf. Baseline weakness B LE. Describes neurogenic claudication that symptoms worsening with prolonged activity. Denies progressive LE paresthesia. Minimal radicular pain into L LE. Denies bowel/bladder dysfunction. Using cymbalta, zanaflex, gabapentin, tramadol for pain relief. Thankfully, symptoms are not limiting function, able to shop recently and noted moving some furniture without progressive pain. Wearing lumbar support brace with prolonged activity. Considering home stretching program, enjoys yoga. Updated L spine MRI - [facility] 06/17/21, report only Stable study compared to prior imaging, grade 1 to 2 listhesis L5/S1, mild to moderate facet arthropathy through out, L3/4 mild to moderate central stenosis with moderate foraminal narrowing, severe foraminal narrowing L4/5, moderate to severe centralstenosis with severe foraminal narrowing bilaterally and compression of exiting nerve roots L5/S1, R sided facet cyst L5/S1 with displacement of R L5 nerve roots. History of injections with Dr. Curry: MIGUELANGEL: 02/08/21 Caudal JOEY: 04/29/21, 12/24/20, 09/17/[address] Ziegler and Dr. Landaverde. History: Past Medical History: Diagnosis Date • Benign hypertension with CKD (chronic kidney disease) stage III (HCC) 01/18/2017 • Cervicalgia due to muscle spasms • Depressive disorder, not elsewhere classified • Dermatochalasis both eyes • Disorder of bone and cartilage osteopenia • Dyslipidemia, goal LDL below 130 on red yeast rice in place of statin • Dyslipidemia, goal to be determined on red yeast rice in place of statin • Generalized anxiety disorder • Hypothyroidism • Irritable bowel syndrome IBS-C [...] performed by Ruslan Kelly MD at ENDOSCOPY [facility] • GENITAL SURGERY PROCEDURE NEC 1982 at age 42, 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 • INJECT DX/THER SUBSTANCE INTERLAMINAR CERVICAL/THORACIC W IMAGE GUIDE 02/08/2021 INJECTION SPINE LUMBAR CERVICAL OR THORACIC performed by Ryder Curry, DO at OR [facility] • INJECT DX/THER SUBSTANCE INTERLAMINAR LUMBAR/SACRAL W IMAGE GUIDE 09/17/2020 INJECTION SPINE LUMBAR OR SACRAL performed by Ryder Curry, DO at OR [facility] • INJECT DX/THER SUBSTANCE INTERLAMINAR LUMBAR/SACRAL W IMAGE GUIDE 12/24/2020 INJECTION SPINE LUMBAR OR SACRAL performed by Ryder Curry, DO at OR [facility] • INJECT DX/THER SUBSTANCE INTERLAMINAR LUMBAR/SACRAL W IMAGE GUIDE 04/29/2021 INJECTION SPINE LUMBAR OR SACRAL performed by Ryder Carter Curry, DO at OR [facility] • LAPAROSCOPY; CHOLECYSTECTOMY 1991 Cholecystectomy, Laproscopic • REVISE UPPER EYELID 06/10/2010 both eyes upper lid blepharoplasties, Dr. Hu • TOTAL HYSTERECTOMY 1989 still has one ovary • TREAT ANKLE FRACTURE W/MANIPULATION Left surgical repair ankle fracture Current Outpatient Medications Medication Sig Dispense Refill • STOOL SOFTENER 100 MG PO TABS 1 tablet daily as needed for constipation • RED YEAST RICE 600 MG PO CAPS 1 daily • PROGESTERONE 1000 MG/60GM EX CREA apply once daily • cyclosporine (RESTASIS) 0.05 % ophthalmic [...] 1000 units Capsule Take by mouth. • [place] 3 1200 MG CAPS • Biotin 1 MG Capsule • Ascorbic Acid (VITAMIN C) 1000 MG Tablet Take 1,000 mg by mouth daily. • fluticasone (FLONASE) 50 MCG/ACT nasal spray Administer 2 Sprays into each nostril daily. 1 Inhaler 5 • MEDICAL INSTRUCTIONS Use as directed. Bi-Est estrogen cream --apply cream to arm every other day • acetaminophen (TYLENOL EXTRA STRENGTH) 500 MG [...] day. • Witch Sheryl-Glycerin External Pad (A.E.R. Na Saucedo) Apply topically to affected area as needed. • dilTIAZem HCl (CARDIZEM OINTMENT) 2% VT GEL Administer into the rectum 3 times a day. (Patient not taking: Reported on 04/29/2021 ) 30 g 3 • Hydrocortisone (Perianal) 2.5 % External Cream (Anusol-HC) Administer into the rectum 2 times aday. (Patient not taking: Reported on 09/17/2020) 30 g 3 • Aspirin 325 MG Oral Tablet Delayed Release Take 325 mg by mouth 3 times a day. Patient takes OTC for pain • traMADol HCl 50 MG Oral Tablet (Ultram) (Patient not taking: Reported on 04/29/2021 ) No current facility-administered medications for this visit. Review of patient's allergies indicates: No Known Allergies ASSESSMENT: Lumbar radicular pain Spinal stenosis with neurogenic claudication RECOMMENDATION: Discussed continued low back pain with LE radicular pain into R. Overall, stable, noting continued relief from JOEY in Apr. Reviewed L spine MRI report from [facility] 06/17/21 - Stable study compared to prior imaging, grade 1 to 2 listhesis L5/S1, mild to moderate facet arthropathy through out, L3/4 mild to moderate central stenosis with moderate foraminal narrowing, severe foraminal narrowing L4/5, moderate to severe central stenosis with severe foraminal narrowing bilaterally and compression of exiting nerve roots L5/S1, R sided facet cyst L5/S1 with displacement of R L5 nerve roots. Denies progressive LE weakness, paresthesia. Advised to be as active as tolerated and will contact office when pain returns to baseline. She stated understanding and was appreciative of the conversation. Total call duration 23 minutes. Katarzyna Soliman PA-C 06/25/2021 documented in this encounter Plan of Treatment Upcoming Encounters Date Type Specialty Care Team Description 07/30/2021 Office Visit Gynecology Obstetrics Backer, MARY Rasmussen [address] [facility] [place] [address] Scheduled Procedures Name Priority Associated Diagnoses Date/Ti me COLONOSCOPY FLEXIBLE PROXIMAL DIAGNOSTIC Recall History of colon polyps Health Maintenance Due Date Last Done Comments Zoster Vaccines (2 of 3) 05/15/2007 03/20/2007 CKD GFR USE SMARTSET 02649 03/02/201808/31, 07/29/2017, 11/14/2016, Additional history exists CKD HGB USE SMARTSET 62809 07/29/201807/29, 03/31/2016, 08/05/2015, Additional history exists CKD PHOS USE SMARTSET 22043 07/29/201807/18, 03/31/2016, 08/06/2014 Depression Screening, Annual for [...] with neurogenic claudication documented in this encounter Advance Directives Documents on File Type Date Recorded Patient Belt Worker Expl anation Advanced Directive Advanced Directive Advanced [...] DIRECTIVE LETTER OF ADVANCE DIRECTIVE Care Teams Human Resources Office Manager Relationship Specialty Start Date End Date Deja Oseguera CRNP [address] [place] [address] PCP - General Nurse Practitioner 12/24/20 documented as of this encounter
--- OUTSIDE RECORDS SUMMARY | 2022-12-12 21:46 | External Medical Summary | Summary of Care ---
Author Name Unknown Organization [place] [address] Care Team Providers Care Voice And Data Technician Name Role Phone Deja Oseguera MARY Primary Care Provider Reason for Visit * Reason Comments Back Pain Encounter Details Date Type Department Care Team Description 03/17/2021 Office Visit Interventional Pain Center, [facility] [address] [facility] [place] [address] Katarzyna Soliman PA-C [address] [place] [address] [place]ER [address] Lumbar radicular pain* Allergies No known active allergiesdocumented as of this encounter (statuses as of 03/17/2021) Medications Medication Sig Dispensed Refills Start Date [...] Information Patient not taking. Reported on 09/17/2020 Cholecalciferol (VITAMIN D-3) 1000 units Capsule Take by mouth. 0 Active Monroe 3 1200 MG CAPS 0 Active Biotin [...] as of this encounter (statuses as of 03/17/2021) Active Problems Problem Noted Date Encounter for examination fo r normal comparison and control in clinical research program 08/28/2017 Overview: DO NOT DELETE [facility] DETECT Study: Project # [id number], Lcac Radar Operator/Navigator: Nando Villeda, MS, MPH. SUMMARY: Goal: Establish [...] contact study staff at ; after hours Lcac Radar Operator/Navigator via the [facility] hospital drop hammer operator helper . - Please contact study team before resolving/deleting from patients problem list. Study phone number: [phone]. Diagnosis changed due to Research Module. Go [...] as of this encounter (statuses as of 03/17/2021) Resolved Problems Problem Noted Date Resolved Date Encounter for examination fo r normal comparison and control in clinical research program 08/28/2017 10/21/2019 Overview: DO NOT DELETE [facility] DETECT Study: Project # [id number], Lcac Radar Operator/Navigator: Jace Arrington, PhD. SUMMARY: Goal: Establish test [...] contact study staff at ; after hours Lcac Radar Operator/Navigator via the [facility] hospital drop hammer operator helper . Please contact study team before resolving/deleting from patients problem list. Study phone number: [phone]. Diagnosis changed due to Research Module. Go [...] as of this encounter (statuses as of 03/17/2021) Immunizations Name Administration Dates Next Due PPD [...] Progress Notes * Katarzyna Soliman PA-C - 03/17/2021 1:37 PM EST Name: Laurel Rios Date: 03/17/2021 HPI: Laurel Rios is a 81 year old female known to the Pain Management clinic presents for follow up due to low back and LE pain. Concerned LE pain has worsened in the past few weeks without injury. Locates pain R buttock that radiates to posterior thigh calf and plantar foot. Rates pain 5/10 and is constant in nature. Minimal relief with medication management, home stretching. Some relief of foot pain with orthotic inserts. Denies L LE radicular pain. Denies progressive LE weakness and paresthesia. Denies bowel/bladder dysfunction. Using tylenol, cymbalta, gabapentin, tizanidine, tramadol for pain relief. Does feel medications are providing benefit, although only using tramadol everyother day due to constipation. Questions if symptoms are from SI joint. Pain is limiting ADL. History of injections with Dr. Curry: MIGUELANGEL: 02/08/21 Caudal JOEY 12/24/20, 09/17/[address] Ziegler and Dr. Landaverde. 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 • Monroe 3 1200 MG CAPS • Biotin 1 [...] day. • dilTIAZem HCl (CARDIZEM OINTMENT) 2% VT GEL Administer into the rectum 3 times a day. 30 g 3 • Aspirin 325 MG Oral Tablet Delayed Release Take 325 mg by mouth 3 times a day. Patient takes OTC for pain • cyclosporine (RESTASIS) 0.05 % ophthalmic emulsion Instill 1 Drop into both eyes every 12 hours. affected eye(s) 32 Vial 11 • tiZANidine (ZANAFLEX) 4 MG Tablet Take 0.5 Tabs by mouth. 1 Tab 0 • dicyclomine (BENTYL) 10 MG Capsule Take 1 Cap by mouth 4 times a day as needed for Cramping. For abdominal pain (Patient not taking: Reported on 09/17/2020) 120 Cap 5 • MEDICAL INSTRUCTIONS Use as directed. Bi-Est estrogen cream --apply cream to arm every other day • acetaminophen (TYLENOL EXTRA STRENGTH) 500 MG Tablet Take 500 mg by mouth every 6 hours as needed for Pain. • Witch Sheryl-Glycerin External Pad (A.E.R. Witch Sheryl) Apply topically to affected area as needed. • Hydrocortisone (Perianal) 2.5 % External Cream (Anusol-HC) Administer into the rectum 2 times aday. (Patient not taking: Reported on 09/17/2020) 30 g 3 No current facility-administered medications for this visit. Review of patient's allergies indicates: No Known Allergies ROS: CONSTITUTIONAL: Denies anorexia, weight loss, fever, night sweats. RESPIRATORY: Denies shortness of breath, wheezing. CARDIOVASCULAR: Denies chest pains, irregular heartbeat. HEME: Denies easy bruising and anticoagulation use. ROS EXAM: Remainder of ROS negative as discussed above in the HPI. PHYSICAL EXAM: There were no vitals taken for this visit. GENERAL: WD/WN female who is awake and alert. Does not appear to be in acute distress. MENTAL STATUS: Oriented x 3. Pleasant and cooperative with normal affect. LUMBAR SPINE: No gross abnormalities. Skin is intact. No lesions visualized. Midline and B paravertebral musculature nontender. Mild right sacroiliac joint tenderness. Full active ROM with flexion and extension of the lumbar spine. STRENGTH: 5/5 in all major motor groups lower extremities bilaterally. SENSATION: Not formally tested. No gross sensory deficits lower extremities bilaterally. GAIT/COORDINATION: Gait is intact. Ambulates without assistance. ASSESSMENT: Lumbar radicular pain Severe B foraminal narrowing L5/S1 Grade 1 listhesis L5/S1 RECOMMENDATION: Continued low back pain that radiates to R foot, following L5/S1 pattern. Hx of caudal JOEY x's 2, felt Oct injection provided relief until one month ago. Did have a recent MIGUELANGEL as well in Nov. Do notrecommend foot xrays at this time. Reiterated importance of spacing injections due to steroid exposure. she is aware it is too soon for another injection. Encouraged to continue home stretching program, chiropractic manipulation. Recently started tramadol which is certainly reasonable due to failedconservative care, unfortunately is causing some constipation. Recommend using stool softener. Advised to call if pain worsens. Also aware of covid 19 restrictions at [facility] that is limiting procedures, but again with recent injection would defer repeat procedure at this time. Katarzyna Soliman PA-C 03/17/2021 documented in this encounter Nursing Notes * Dominique Walker LPN - 03/17/2021 1:39 PM EST Patient here for low back and R leg and foot pain documented in this encounter Plan of Treatment Scheduled Procedures Name Priority Associated Diagnoses Date/Ti me COLONOSCOPY FLEXIBLE PROXIMAL DIAGNOSTIC Recall History of colon polyps Health Maintenance Due Date Last Done Comments COVID-19 Vaccine (1) 1945 Zoster Vaccines (2 of 3) 05/15/2007 03/20/2007 CKD GFR USE SMARTSET 36716 03/02/201808/31, 07/29/2017, 11/14/2016, Additional history exists CKD HGB USE SMARTSET 93809 07/29/201807/29, 03/31/2016, 08/05/2015, Additional history exists CKD PHOS USE SMARTSET 65609 07/29/201807/18, 03/31/2016, 08/06/2014 Depression Screening, Annual for Pts 12 and Over 08/11/2018 08/11/2017 Prediabetes-Yearly Hemoglobin A1c 08/24/2018 08/24/2017 *BASIC METABOLIC PANEL (BMP) FOR HTN YEARLY 09/03/2018 Dexa Scan 03/15/2019 03/15/2012 DIABETES SCREEN EVERY 3 YRS-AGE 45 AND ABOVE 08/31/2020 08/31/2017, 08/24/2017, 07/29/2017, Additional history exists Influenza Vaccine (FLU shot) (#1) 2020 12/16/2019, 12/21/2018, 12/21/2017, Additional history exists DTaP,Tdap,and [...] Documents on File Type Date Recorded Patient Warp Scouring Vat Tender Expl anation Advanced Directive Advanced Directive [...] DIRECTIVE LETTER OF ADVANCE DIRECTIVE Care Teams Voice And Data Technician Relationship Specialty Start Date End Date Deja Oseguera CRNP [address] [place] [address] PCP - General Nurse Practitioner 12/24/20 documented as of this encounter
--- OUTSIDE RECORDS SUMMARY | 2022-12-12 21:46 | External Medical Summary | Continuity of Care Document ---
Author Name Unknown Organization [facility] [address] [place] [address] [address] [id number] Care Team Providers Care Recreation Therapy Director Name Role Phone Deja Oseguera Primary Care Physician [phone] [id number] Date(s): 05/13/21 - 05/13/21 [facility] 0 [facility] [address] [facility] [address] [facility], [facility] [address] [place], [place] [address]Ye[place] [phone] Encounter Diagnosis Acute URI(Discharge Diagnosis) - 05/13/21 Acute upper respiratory infection, unspecified(Final) - Discharge Disposition: Home or Self Care Attending Physician: DO Salvador Kristen M Allergies, Adverse Reactions, Alerts Substance Reaction Severity Status predniSONE severe depression Mild Active Assessment and Plan Extracted from: Title:Office Visit Note Author:DO Jarquin Audrey Date:05/13/21 Acute URI Acute, uncomplicated illness/injury Goal: Resolution Data: _ Patient complaining of cough controlled with mucinex last 5 days, no fever chills congestion SOB, has anxiety regarding whether or not she has COVID , has missed 1 ortho appointment out of fear of being sick. _ Plan: _Patient given COVID test, understands results may take 2-3 days to return. Immunizations Given and Recorded Vaccine Date Status [...] live 8 03/20/07 Recorded 1Result Comment: [facility] 2Result Comment: 2021-05-13: Historical information-source unspecified 3Result Comment: 2021-05-13: Historical information-source unspecified 4Result Comment: 2019-11-27: Historical information-source unspecified 5Result Comment: 2019-11-27: Historical information-source unspecified 6Result Comment: 2019-11-27: Historical information-source unspecified 7Result Comment: 2019-11-27: Historical information-source unspecified 8Result Comment: 2019-11-27: Historical information-source unspecified Medications Anusol-HC 2.5% rectal cream Start: 11/26/19 13:21:00 EDT, 1 appl, PA, tid, Disp# 30 g, Refills: 1, to affected area, Pharmacy: [facility]/pharmacy #[id number], 160, cm, 08/26/19 [...] PO, Daily Start Date: 08/10/16 Status: Ordered [place]-3 oral capsule Start: 01/16/18 13:54:00 EDT, 1,200 [...] Refills: 3, TAKE 1 TABLET DAILY, Pharmacy: [facility] Start Date: 09/28/20 Status: Ordered Vitamin D3 5000 intl units oral capsule Start: 11/07/17 14:30:00 EDT Start Date: 11/07/17 Status: Ordered Zanaflex 4 mg oral tablet Start: 11/09/15 15:42:00, 1 tab, PO, q8h, Disp# 90 tab, Refills: 2, Begin with a half tablet and advance to a full tablet as tolerated, Pharmacy: [id number] Start Date: 11/09/15 Stop Date: 02/07/16 Status: Ordered Mental Status 05/13/21 Barriers to Learning one year None evide [...] Diagnosis Diagnosis Type Effective Dates Health Status Clini virgil Service Informant Acute URI Discharge Diagnosis 05/13/21 Non-Specified Procedures Procedure Date Related Diagnosis Body Site Status MRI 1 01/12/21 Completed MRI of lumbar spine 2 08/13/20 Com pleted Mammogram 3 12/23/19 Completed Mammogram 4 12/19/18 Completed Bone density scan 5 10/23/18 Compl eted MRI 6 05/30/[address] of cervical spine 7 04/24/18 Co mpleted Colonoscopy 8 12/29/16 Completed ankle bimalleolar fracture ORIF 01/08/09 Completed Biopsy of breast 9 1991 Comple félix Cholecystectomy 1990 Completed hysterectomy [...] the results. Results Laboratory List Name Date COVID-19 Coronavirus Same Day (COVID19 S ) 05/13/21 Most recent to oldest [Reference Range]: 1 COVID-19 Coronavirus PCR [COV19N] COVID 19 virus not detected 1 *Unknown* (05/13/21 1:48 PM) 1Result Comment: Test results reported to [place] [facility] This assay has been granted an Emergency Use Authorization (EUA) by the [place] Food and drug Administration: Specimen source Nasopharyngeal. The performance of the assay (NeuMoDX) has been verified by the [facility]. Vital Signs Most recent to oldest [Reference Range]: 1 Temperature [36.5-37.9 DegC] 37.2 DegC (05/13/21 1:15 PM) Heart Rate 86 bpm (05/13/21 1:15 PM) Blood Pressure 116/84mmHg (05/13/21 1:15 PM) Cuff Pulse Pressure 32 mmHg (05/13/21 1:15 PM) Social History Social History Type Response Tobacco 1 Smoking Status Former Smoker, quit > 1 yr Sex Female 1quit 1987
--- OUTSIDE RECORDS SUMMARY | 2022-12-12 21:46 | External Medical Summary | Summary of Care ---
Author Name Unknown Organization [place] [address] Care Team Providers Care Toll Line Inspector Name Role Phone Deja Oseguera Primary Care Provider Reason for Visit * Reason Onset Date Comments Advice 06/14/2021 Encounter Details Date Type Department Care Team Description 06/14/2021 Telephone Gynecology/Obstetrics [facility] [address] [place] [address] Services, Scheduling [address] [place] [address] Advice Allergies No known active allergiesdocumented as of this encounter (statuses as of 06/14/2021) Medications Medication Sig Dispensed Refills Start Date [...] units Capsule Take by mouth. 0 Active [place] 3 1200 MG CAPS 0 Active Biotin [...] as of this encounter (statuses as of 06/14/2021) Active Problems Problem Noted Date Encounter for examination fo r normal comparison and control in clinical research program 08/28/2017 Overview: DO NOT DELETE - [facility] DETECT Study: Project # [id number], Student Support Advisor: Nando Villeda, MS, MPH. SUMMARY: Goal: [...] contact study staff at ; after hours Student Support Advisor via the [facility] hospital acid washer operator . - Please contact study team before resolving/deleting from patients problem list. Study phone number: [phone]. Diagnosis changed due to Research Module. Go [...] as of this encounter (statuses as of 06/14/2021) Resolved Problems Problem Noted Date Resolved Date Encounter for examination fo r normal comparison and control in clinical research program 08/28/2017 10/21/2019 Overview: DO NOT DELETE [facility] DETECT Study: Project # [id number], Student Support Advisor: Jace Arrington, PhD. SUMMARY: Goal: Establish [...] contact study staff at ; after hours Student Support Advisor via the [facility] hospital acid washer operator . Please contact study team before resolving/deleting from patients problem list. Study phone number: [phone]. Diagnosis changed due to Research Module. Go [...] as of this encounter (statuses as of 06/14/2021) Immunizations Name Administration Dates Next Due PPD [...] encounter Miscellaneous Notes * Telephone Encounter - Ofe Alex RN - 06/14/2021 1:55 PM EDT Called pt back, pt asking to see Isaac to discuss postmenopausal symptoms and hormone replacement. appt scheduled. * Telephone Encounter - MARIFER Starr - 06/14/2021 1:36 PM EDT Pt called and wants some questions answered before scheduling, please assist. Thank you! documented in this encounter Plan of Treatment Upcoming Encounters Date Type Specialty Care Team Description 07/30/2021 Office Visit Gynecology Obstetrics Backer, MARY Rasmussen [address] [facility] [place] [address] Scheduled Procedures Name Priority Associated Diagnoses Date/Ti me COLONOSCOPY FLEXIBLE PROXIMAL DIAGNOSTIC Recall History of colon polyps Health Maintenance Due Date Last Done Comments COVID-19 Vaccine (1) 1945 Zoster Vaccines (2 of 3) 05/15/2007 03/20/2007 CKD GFR USE SMARTSET 72755 03/02/201808/31, 07/29/2017, 11/14/2016, Additional history exists CKD HGB USE SMARTSET 82127 07/29/201807/29, 03/31/2016, 08/05/2015, Additional history exists CKD PHOS USE SMARTSET 78678 07/29/201807/18, 03/31/2016, 08/06/2014 Depression Screening, Annual for Pts 12 and Over 08/11/2018 08/11/2017 Prediabetes-Yearly Hemoglobin A1c 08/24/2018 08/24/2017 BASIC METABOLIC PANEL (BMP) FOR HTN YEARLY 08/31/2018 08/31/2017, 07/29/2017, 11/14/2016, Additional history exists Dexa Scan 03/15/2019 03/15/2012 DIABETES SCREEN EVERY 3 YRS-AGE 45 AND ABOVE 08/31/2020 08/31/2017, 08/24/2017, 07/29/2017, Additional history exists Influenza Vaccine (FLU shot) (#1) 2020 12/16/2019, 12/21/2018, 12/21/2017, Additional history exists *URINE ALBUMIN/CREATININE RATIO ONCE FOR HTN 06/13/2021 DTaP,Tdap,and Td Vaccines (2 - Td or [...] Documents on File Type Date Recorded Patient Lacing Presser Expl anation Advanced Directive Advanced Directive Advanced [...] DIRECTIVE LETTER OF ADVANCE DIRECTIVE Care Teams Toll Line Inspector Relationship Specialty Start Date End Date Deja Oseguera CRNP [address] [place] [address] PCP - General Nurse Practitioner 12/24/20 documented as of this encounter
--- OUTSIDE RECORDS SUMMARY | 2022-12-12 21:46 | External Medical Summary | Continuity of Care Document ---
Author Name Unknown Organization [address] [id number] Care Team Providers Care Surveillance Monitor Name Role Phone Deja Oseguera Primary Care Physician [phone] [id number] Date(s): 09/01/21 - 09/01/[address] [address] [phone] Encounter Diagnosis Body mass index [BMI] 26.0-26.9, adult(Discharge Diagnosis) - 09/01/21 Medicare annual wellness visit, subsequent(Discharge Diagnosis) - 09/01/21 Hypothyroidism(Discharge Diagnosis) - 09/01/21 Hypertension(Discharge Diagnosis) - 09/01/21 Chronic kidney disease (CKD), stage III (moderate)(Discharge Diagnosis) - 09/01/21 Cervical spinal stenosis(Discharge Diagnosis) - 09/01/21 Low back pain(Discharge Diagnosis) - 09/01/21 Colon cancer screening(Discharge Diagnosis) - 09/01/21 Discharge Disposition: Home or Self Care Attending Physician: MARY Oseguera Jill Nicole Referring Physician: MARY Oseguera Jill Nicole Allergies, Adverse Reactions, Alerts Substance Reaction Severity Status predniSONE severe depression Mild Active Immunizations Given and Recorded Vaccine Date Status Refusal Reason zoster vaccine, inactivated 09/01/21 Given influenza virus [...] live 8 03/20/07 Recorded 1Result Comment: [facility] 2Result Comment: 2021-05-13: Historical information-source unspecified 3Result Comment: 2021-05-13: Historical information-source unspecified 4Result Comment: 2019-11-27: Historical information-source unspecified 5Result Comment: 2019-11-27: Historical information-source unspecified 6Result Comment: 2019-11-27: Historical information-source unspecified 7Result Comment: 2019-11-27: Historical information-source unspecified 8Result Comment: 2019-11-27: Historical information-source unspecified Medications Anusol-HC 2.5% rectal cream Start: 11/26/19 13:21:00 EDT, 1 appl, [place], tid, Disp# 30 g, Refills: 1, to affected area, Pharmacy: [facility]/pharmacy #[id number], 160, cm, 08/26/19 13:50:00 EDT, Height [...] 10/19/15 13:31:00 Start Date: 10/19/15 Status: Ordered [place]-3 oral capsule Start: 01/16/18 13:54:00 EDT, 1,200 [...] Refills: 3, TAKE 1 TABLET DAILY, Pharmacy: [facility] Start Date: 09/28/20 Status: Ordered Vitamin D3 5000 intl units oral capsule Start: 11/07/17 14:30:00 EDT Start Date: 11/07/17 Status: Ordered Zanaflex 4 mg oral tablet Start: 11/09/15 15:42:00, 1 tab, PO, q8h, Disp# 90 tab, Refills: 2, Begin with a half tablet and advance to a full tablet as tolerated, Pharmacy: [id number] Start Date: 11/09/15 Stop Date: 02/07/16 Status: Ordered Mental Status 09/01/21 Barriers to Learning one year None evide nt Mandatory Health Literacy Documentation Yes Health Literacy Communication Barriers N ever Primary Language Arabic Problem List Condition Effective Dates Status Health Status Inform ant Hand arthritis(Confirmed) Active Hallux rigidus(Confirmed) Active Ankle fracture(Confirmed) 1 Active [...] Effective Dates Health Status Clinical Service Informant Medicare annual wellness visit, subsequent Discharge Diagnosis 09/01/21 Hypertension Discharge Diagnosis 09/01/21 Low back pain Discharge Diagnosis 09/01/21 Colon cancer screening Discharge Diagnosis 09/01/21 Non-Specified Hypothyroidism Discharge Diagnosis 09/01/21 Body mass index [BMI] 26.0-26.9, adult Discharge Diagnosis 09/01/21 Non-Specified Chronic kidney disease (CKD), stage III (moderate) Discharge Diagnosis 09/01/21 Cervical spinal stenosis Discharge Diagnosis 09/01/21 Procedures Procedure Date Related Diagnosis Body Site [...] to disc bulges with disc osteophyte complexes. Normalcervical cord signal and caliber. 7no acute fracture or subluxation multilevel discogenic changes and facet arthrosis as above 8Adenomatous polyp - repeat 5 years. 9benign 10Impression: There is no mammographic evidence of malignancy. A 1 year screening mammogram is recommended. (01/06/2022) The patient will receive written notification of the results. Vital Signs Most recent to oldest [Reference Range]: 1 Height 160.7 cm (09/01/21 1:47 PM) Patient Weight 68.3 kg (09/01/21 1:47 PM) Body Mass Index 26.45 kg/m2 (09/01/21 1:47 PM) Temperature [36.5-37.9 DegC] 36.8 DegC (09/01/21 1:47 PM) Heart Rate 79 bpm (09/01/21 1:47 PM) Respiratory Rate 18 br/min (09/01/21 1:47 PM) Blood Pressure 138/80mmHg (09/01/21 1:47 PM) Social History Social History Type Response Tobacco 1 Smoking Status Never smoked cigaret chung Sex Female 1quit 1987 Care Team Personnel Name: MARY Oseguera Jill Nicole Address: [address] [place] [address]
--- OUTSIDE RECORDS SUMMARY | 2022-12-12 21:46 | External Medical Summary | Summary of Care ---
Author Name Unknown Organization [place] [address] Care Team Providers Care Senior Cisco Network Engineer Name Role Phone Deja Oseguera MARY Primary Care Provider Reason for Visit * Reason Onset Date Comments Follow Up 02/23/2021 Encounter Details Date Type Department Care Team Description 02/23/2021 Telephone Interventional Pain Center, [facility] [address] [place] [address] CousinsRyder, [address] [place] [address] Follow Up Allergies No known active allergiesdocumented as of this encounter (statuses as of 02/23/2021) Medications Medication Sig Dispensed Refills Start Date [...] units Capsule Take by mouth. 0 Active [place] 3 1200 MG CAPS 0 Active Biotin 1 MG Capsule 0 Activ e Ascorbic Acid (VITAMIN C) 1000 MG Tablet Take 1,000 mg by mouth daily. 0 Active fluticasone (FLONASE) 50 MCG/ACT nasal sprayIndications:Po st-nasal drip,Cough Administer 2 Sprays into each nostril daily. 1 Inhaler 5 05/18/2017 Active Additional Information Patient not taking. Reported on 08/26/2020 MEDICAL INSTRUCTIONS Use as directed. Bi-Est estrogen [...] Patient takes OTC for pain 0 Active documented as of this encounter (statuses as of 02/23/2021) Active Problems Problem Noted Date Encounter for examination fo r normal comparison and control in clinical research program 08/28/2017 Overview: DO NOT DELETE - [facility] DETECT Study: Project # [id number], Bean Roaster: Nando Villeda, MS, MPH. SUMMARY: Goal: Establish [...] contact study staff at ; after hours Bean Roaster via the [facility] hospital trackmobile operator . - Please contact study team before resolving/deleting from patients problem list. Study phone number: [phone]. Diagnosis changed due to Research Module. Go [...] as of this encounter (statuses as of 02/23/2021) Resolved Problems Problem Noted Date Resolved Date Encounter for examination fo r normal comparison and control in clinical research program 08/28/2017 10/21/2019 Overview: DO NOT DELETE [facility] DETECT Study: Project # [id number], Bean Roaster: Jace Arrington, PhD. SUMMARY: Goal: Establish test [...] contact study staff at ; after hours Bean Roaster via the [facility] hospital trackmobile operator . Please contact study team before resolving/deleting from patients problem list. Study phone number: [phone]. Diagnosis changed due to Research Module. Go [...] as of this encounter (statuses as of 02/23/2021) Immunizations Name Administration Dates Next Due PPD [...] Miscellaneous Notes * Telephone Encounter - MARIFER Arvizu - 02/23/2021 3:44 PM EST LM * Telephone Encounter - Ryder Curry, DO - 02/23/2021 11:02 AM EST She also had injection in the lumbar spine 2 months ago. I would like to wait awhile prior to further steroid exposure. I can see her in the office after the holidays and discuss further. * Telephone Encounter - MARIFER Gracia - 02/23/2021 9:43 AM EST Pt calling with 2 week inj f/u. States right after the injection she felt really good, over 50% improvement but the pain does come back when she over does it. Stated she does go to the chiropractor to help with pain. Is willing to try another injection if recommended. Also mentioned pain in her right buttock but said if she wants to address that she will call after the holidays. documented in this encounter Plan of Treatment Scheduled Procedures Name Priority Associated Diagnoses Date/Ti me COLONOSCOPY FLEXIBLE PROXIMAL DIAGNOSTIC Recall History of colon polyps Health Maintenance Due Date Last Done Comments COVID-19 Vaccine (1) 1952 Zoster Vaccines (2 of 3) 05/15/2007 03/20/2007 CKD GFR USE SMARTSET 92581 03/02/201808/31, 07/29/2017, 11/14/2016, Additional history exists CKD HGB USE SMARTSET 28007 07/29/201807/29, 03/31/2016, 08/05/2015, Additional history exists CKD PHOS USE SMARTSET 08539 07/29/201807/18, 03/31/2016, 08/06/2014 *DEPRESSION SCREENING,ANNUAL FOR PTS 12 AND OVER 08/14/2018 Prediabetes-Yearly Hemoglobin A1c 08/24/2018 08/24/2017 *BASIC METABOLIC [...] Vaccine: 65+ Years Completed 10/13/2016, 07/08/2015, 08/16/2002 MENINGOCOCCAL (MENACTRA/MENVEO) Aged Out No longer eligible based on patient's age to complete this topic documented as of this encounter Implants Not on filedocumented as of this encounter Advance Directives Documents on File Type Date Recorded Patient Manager Intel Expl anation Advanced Directive Advanced Directive Advanced [...] DIRECTIVE LETTER OF ADVANCE DIRECTIVE Care Teams Senior Cisco Network Engineer Relationship Specialty Start Date End Date Deja Oseguera CRNP [address] [place] [address] PCP - General Nurse Practitioner 12/24/20 documented as of this encounter
--- OUTSIDE RECORDS SUMMARY | 2022-12-12 21:46 | External Medical Summary | Summary of Care ---
Author Name Unknown Organization [place] [address] Care Team Providers Care Envelope Machine Operator Name Role Phone Deja Oseguera MARY Primary Care Provider Reason for Visit * Reason Onset Date Comments Follow Up 07/16/2021 Encounter Details Date Type Department Care Team Description 07/16/2021 Telephone Interventional Pain Center, [facility] [address] [place] [address] Cousins, Ryder Machado, [address] [place] [address] Follow Up Allergies No known active allergiesdocumented [...] units Capsule Take by mouth. 0 Active [place] 3 1200 MG CAPS 0 Active Biotin [...] 0 Active dilTIAZem HCl (CARDIZEM OINTMENT) 2% MI GEL Administer into the rectum 3 times [...] research program 08/28/2017 Overview: DO NOT DELETE [facility] DETECT Study: Project # [id number], Instruments Sales Representative: Nando Villeda, MS, MPH. SUMMARY: Goal: [...] contact study staff at ; after hours Instruments Sales Representative via the [facility] hospital coal cutting machine operator . - Please contact study team before resolving/deleting from patients problem list. Study phone number: [phone]. Diagnosis changed due to Research Module. Go [...] NOT DELETE [facility] DETECT Study: Project # [id number], Instruments Sales Representative: Jace Arrington, PhD. SUMMARY: Goal: Establish [...] contact study staff at ; after hours Instruments Sales Representative via the [facility] hospital coal cutting machine operator . Please contact study team before resolving/deleting from patients problem list. Study phone number: [phone]. Diagnosis changed due to Research Module. Go [...] Visit Gynecology Obstetrics Backer, MARY Rasmussen [address] [facility] [place] [address] Scheduled Orders Name Type Priority Associated Diagnoses [...] 3) 05/15/2007 03/20/2007 CKD GFR USE SMARTSET 48070 03/02/201808/31, 07/29/2017, 11/14/2016, Additional history exists CKD HGB USE SMARTSET 49643 07/29/201807/29, 03/31/2016, 08/05/2015, Additional history exists CKD PHOS USE SMARTSET 11130 07/29/201807/18, 03/31/2016, 08/06/2014 Depression Screening, Annual for [...] Documents on File Type Date Recorded Patient Decorative Greens Cutter Expl anation Advanced Directive Advanced Directive Advanced [...] DIRECTIVE LETTER OF ADVANCE DIRECTIVE Care Teams Envelope Machine Operator Relationship Specialty Start Date End Date Deja Oseguera CRNP [address] [place] [address] PCP - General Nurse Practitioner 12/24/20 documented as of this encounter
--- OUTSIDE RECORDS SUMMARY | 2022-12-12 21:46 | External Medical Summary | Continuity of Care Document ---
Author Name Unknown Organization [facility] [id number] Address [address] [place] [id number] Care Team Providers Care Inside Barrel Lathe Operator Name Role Phone Deja Oseguera Primary Care Physician [phone] [id number] Date(s): 08/27/21 - 08/27/21 [facility] [address] [place] [address] [address] [facility] Medicine [address] [address] Encounter Diagnosis Unspecified acquired deformity of hand, right hand(Discharge Diagnosis) - 08/27/21 Discharge Disposition: Home or Self Care Attending Physician: BETTY Pérez, Randi Grant Allergies, Adverse Reactions, Alerts Substance Reaction Severity [...] live 8 03/20/07 Recorded 1Result Comment: [facility]acy 2Result Comment: 2021-05-13: Historical information-source unspecified 3Result Comment: 2021-05-13: Historical information-source unspecified 4Result Comment: 2019-11-27: Historical information-source unspecified 5Result Comment: 2019-11-27: Historical information-source unspecified 6Result Comment: 2019-11-27: Historical information-source unspecified 7Result Comment: 2019-11-27: Historical information-source unspecified 8Result Comment: 2019-11-27: Historical information-source unspecified Medications Anusol-HC 2.5% rectal cream Start: 11/26/19 13:21:00 EDT, 1 appl, [place], tid, Disp# 30 g, Refills: 1, to affected area, Pharmacy: [facility]/pharmacy #[id number], 160, cm, 08/26/19 13:50:00 [...] PO, Daily Start Date: 08/10/16 Status: Ordered [place]-3 oral capsule Start: 01/16/18 13:54:00 EDT, 1,200 [...] Refills: 3, TAKE 1 TABLET DAILY, Pharmacy: [facility] Start Date: 09/28/20 Status: Ordered Vitamin D3 5000 intl units oral capsule Start: 11/07/17 14:30:00 EDT Start Date: 11/07/17 Status: Ordered Zanaflex 4 mg oral tablet Start: 11/09/15 15:42:00, 1 tab, PO, q8h, Disp# 90 tab, Refills: 2, Begin with a half tablet and advance to a full tablet as tolerated, Pharmacy: [id number] Start Date: 11/09/15 Stop Date: 02/07/16 Status: Ordered Mental Status 08/27/21 Barriers to Learning one year None evide nt Mandatory Health Literacy Documentation Yes Health Literacy Communication Barriers N ever Primary Language Persian Problem List Condition Effective Dates Status Health [...] Effective Dates Health Status Clinical Service Informant Unspecified acquired deformity of hand, right hand Discharge Diagnosis 08/27/21 Procedures Procedure Date Related Diagnosis Body Site [...] Personnel Name: MARY Oseguera Jill Nicole Address: [address] [place] [address], [place] [address]
--- OUTSIDE RECORDS SUMMARY | 2022-12-12 21:47 | External Medical Summary | Summary of Care ---
Author Name Unknown Organization [place] [address] Care Team Providers Care Bait Man Name Role Phone Deja Oseguera Primary Care Provider Encounter Details Date Type Department Care Team Description 08/13/2020 Result Scan Unspecified Department <No scans attached> Allergies No Known Active Allergiesdocumented as of this encounter (statuses as of 01/18/2021) Medications Medication Sig Dispensed Refills Start Date [...] units Capsule Take by mouth. 0 Active [place] 3 1200 MG CAPS 0 Active Biotin [...] Information Patient not taking. Reported on 08/26/2020 Hydrocortisone (Perianal) 2.5 % External Cream (Anusol-HC) Administer into the rectum 2 times a day. 30 g 3 01/15/2020 Active Additional Information Patient not taking. Reported on 09/17/2020 documented as of this encounter (statuses as of 01/18/2021) Active Problems Problem Noted Date Encounter for examination fo r normal comparison and control in clinical research program 08/28/2017 Overview: DO NOT DELETE - [facility] DETECT Study: Project # [id number], Manager Power: Nando Villeda, MS, MPH. SUMMARY: Goal: Establish [...] contact study staff at ; after hours Manager Power via the [facility] hospital straight slicing machine operator . - Please contact study team before resolving/deleting from patients problem list. Study phone number: [phone]. Diagnosis changed due to Research Module. Go [...] as of this encounter (statuses as of 01/18/2021) Resolved Problems Problem Noted Date Resolved Date Encounter for examination fo r normal comparison and control in clinical research program 08/28/2017 10/21/2019 Overview: DO NOT DELETE [facility] Study: Project # [id number], Manager Power: Jace Arrington, PhD. SUMMARY: Goal: Establish test [...] contact study staff at ; after hours Manager Power via the [facility] hospital straight slicing machine operator . Please contact study team before resolving/deleting from patients problem list. Study phone number: [phone]. Diagnosis changed due to Research Module. Go [...] as of this encounter (statuses as of 01/18/2021) Immunizations Name Administration Dates Next Due PPD [...] Tobacco: Never Used Comments:quit 1987 Alcohol Use Drinks/Week oz/Week Comments No Sex Assigned at Date Recorded Not on file Job Start Date Occupation Industry Not on file Not on file Not on file documented as of this encounter Plan of Treatment Upcoming Encounters Date Type Specialty Care Team Description 01/19/2021 Office Visit Pain Management Katarzyna Soliman PA-C [address] [place] [address] 01/22/2021 Telemedicine Pain Management Cousins, Ryder Machado DO [address] [place] [address] Health Maintenance Due Date Last Done Comments COVID-19 Vaccine (1) 1952 Zoster Vaccines (2 of 3) 05/15/2007 03/20/2007 CKD GFR USE SMARTSET 91033 03/02/201808/31, 07/29/2017, 11/14/2016, Additional history exists CKD HGB USE SMARTSET 41946 07/29/201807/29, 03/31/2016, 08/05/2015, Additional history exists CKD PHOS USE SMARTSET 29528 07/29/201807/18, 03/31/2016, 08/06/2014 *DEPRESSION SCREENING,ANNUAL FOR PTS 12 AND OVER 08/14/2018 Prediabetes-Yearly Hemoglobin A1c 08/24/2018 08/24/2017 *BASIC METABOLIC PANEL (BMP) FOR HTN YEARLY 09/03/2018 Dexa Scan 03/15/2019 03/15/2012 DIABETES SCREEN EVERY 3 YRS-AGE 45 AND ABOVE 08/31/2020 08/31/2017, 08/24/2017, 07/29/2017, Additional history exists Influenza Vaccine (FLU shot) (#1) 2020 12/16/2019, 12/21/2018, 12/21/2017, Additional history exists DTaP,Tdap,and Td Vaccines (2 - Td) 12/19/2021 12/20/2011 COLONOSCOPY-EVERY 5 YRS AGES 18-100 12/29/2021 12/29/2016, 12/29/2016 Pneumococcal Vaccine: 65+ Years Completed 10/13/2016, 07/08/2015, 08/16/2002 MENINGOCOCCAL (MENACTRA/MENVEO) Aged Out No longer eligible based on patient's age to complete this topic documented as of this encounter Implants Not on filedocumented as of this encounter Procedures Procedure Name Priority Date/Time Associated Diagnosis Comments RADIOLOGY SCANNED RESULT 08/13/2020 documented in this encounter Results * RADIOLOGY SCANNED RESULT (08/13/2020) Specimen Narrative Performed At documented in this encounter Advance Directives Documents on File Type Date Recorded Patient Pharmacy Technician Instructor Expl anation Advance Directives and Living Will 12/13/2011 12:00 AM ADVANCE DIRECTIVE ADVANCE DIRECTIVE DECLARATION FORM Advance Directives and Living Will 11/13/2011 12:00 AM ADVANCE DIRECTIVE LETTER OF ADVANCE DIRECTIVE Advance Directives and Living Will 11/16/2014 12:00 AM ADVANCE DIRECTIVE AN D DURABLE POA FOR HEALTH CARE Advanced Directive Advanced Directive Advanced Directive Advanced Directive Advanced Directive Advanced Directive Advanced Directive Advanced Directive Advanced Directive Advanced Directive Advanced Directive Advanced Directive Advanced Directive Advanced Directive Advanced Directive Advanced Directive Advanced Directive Advanced Directive Advanced Directive
--- OUTSIDE RECORDS SUMMARY | 2022-12-12 21:47 | External Medical Summary | Continuity of Care Document ---
Author Name Unknown Organization [address] Address [address] [place] [id number] Care Team Providers Care Computer Networker Name Role Phone Deja Oseguera Primary Care Physician [phone] Encounter [facility] [id number] Date(s): 12/22/20 - 12/22/[address] [facility] [address] [address] [place] [phone] Encounter Diagnosis Pain of back and right lower extremity(Discharge Diagnosis) - 12/15/20 Need for vaccination(Discharge Diagnosis) - 12/22/20 Low back pain(Discharge Diagnosis) - 12/22/20 Heart murmur, systolic(Discharge Diagnosis) - 12/22/20 Discharge Disposition: Home or Self Care Attending Physician: MARY Oseguera Jill Nicole Allergies, Adverse Reactions, Alerts Substance Reaction Severity Status predniSONE severe depression Active Assessment and Plan Extracted from: Title:Office Visit Note Author:MARY Oseguera Ji ll Nicole Date:12/22/20 1. Low back pain Stable keep appointment for injection on , meetings with chiropractor, and PT Continue to monitor f/u in about 1 month for AWV and PRN for any questions or concerns 2. Heart murmur, systolic Echocardiogram to evaluate continue to monitor Ordered: Echo TransTHORacic TTE Complete Immunizations Given and Recorded Vaccine Date Status [...] live 6 03/20/07 Recorded 1Result Comment: [facility] 2Result Comment: 2019-11-27: Historical information-source unspecified 3Result Comment: 2019-11-27: Historical information-source unspecified 4Result Comment: 2019-11-27: Historical information-source unspecified 5Result Comment: 2019-11-27: Historical information-source unspecified 6Result Comment: 2019-11-27: Historical information-source unspecified Medications Anusol-HC 2.5% rectal cream Start: 11/26/19 13:21:00 EDT, 1 appl, [place], tid, Disp# 30 g, Refills: 1, to affected area, Pharmacy: [facility]/pharmacy #[id number], 160, cm, 08/26/19 13:50:00 EDT, [...] 15:29:00 EDT Start Date: 08/14/19 Status: Ordered Medrol Dosepak 4 mg oral tablet Start: 08/05/20 15:40:00 EDT, See Instructions, Disp# 21 tab, Refills: 0, Take as directed on package labeling for 6 days., Pharmacy: [id number] Start Date: 08/05/20 Stop Date: 08/11/20 Status: Ordered MiraLax Start: 10/19/15 13:31:00 Start Date: 10/19/15 Status: Ordered Ocuvite Extra oral tablet Start: 08/10/16 13:14:00, 1 tab, PO, Daily Start Date: 08/10/16 Status: Ordered [place]-3 oral capsule Start: 01/16/18 13:54:00 EDT, 1,200 mg =, Daily Start Date: 01/16/18 Status: Ordered oxyCODONE 5 mg oral tablet Start: 08/19/20 10:26:00 EDT, 1 tab, PO, q6h, Disp# 10 tab, Refills: 0, Note to Pharmacy: continuedtherapy, PRN: as needed for pain, Pharmacy: [facility] Start Date: 08/19/20 Status: [...] Ordered traMADol 50 mg oral tablet Start: 12/15/20 9:57:00 EDT, 1 tab, PO, Daily, Disp# 30 tab, Refills: 0, Note to Pharmacy: PDMP reviewed, PRN: as needed for pain, Pharmacy: [id number] Start Date: 12/15/20 Stop Date: 01/14/21 Status: Ordered tretinoin 0.05% topical cream Start: 08/10/16 13:40:00, 1 appl, topical, qhs, Disp# 45 g, Refills: 1, To involved face nightly Start Date: 08/10/16 Status: Ordered unknown medication Start: 04/18/18 13:40:00 EST, Note to Pharmacy: [facility] Start Date: 04/18/18 Status: Ordered valsartan 80 mg oral tablet See Instructions, Disp# 90 tab, Refills: 3, TAKE 1 TABLET DAILY, Pharmacy: [facility] Start Date: 09/28/20 Status: Ordered Vitamin D3 5000 intl units oral capsule Start: 11/07/17 14:30:00 EDT Start Date: 11/07/17 Status: Ordered Zanaflex 4 mg oral tablet Start: 11/09/15 15:42:00, 1 tab, PO, q8h, Disp# 90 tab, Refills: 2, Begin with a half tablet and advance to a full tablet as tolerated, [id number] Start Date: 11/09/15 Stop Date: 02/07/16 Status: Ordered Mental Status 12/22/20 Barriers to Learning one year None evide [...] Effective Dates Health Status Clinical Service Informant Pain of back and right lower extremity Discharge Diagnosis 12/15/20 Non-Specified Low back pain Discharge Diagnosis 12/22/20 Heart murmur, systolic Discharge Diagnosis 12/22/20 Non-Specified Need for vaccination Discharge Diagnosis 12/22/20 Non-Specified Procedures Procedure Date Related Diagnosis Body Site Status MRI of lumbar spine 1 08/13/20 Com pleted Mammogram 2 12/23/19 Completed Mammogram 3 12/19/18 Completed Bone density scan 4 10/23/18 Compl eted MRI 5 05/30/[address] of cervical spine 6 04/24/18 Co mpleted Colonoscopy 7 12/29/16 Completed ankle bimalleolar fracture ORIF 01/08/09 Completed Biopsy of breast 1991 Comple félix Cholecystectomy 1990 Completed hysterectomy 1986 Completed tonsillectomy 1946 Completed Cataract Completed 1impression 1. Multilevel degenerative changes most severe at L5-S1 also associated with grade 1 anterolisthesus of L5 on S1 2ACR BI RADS CAT 0. Need addtl imaging. 3There is no mammographic evidence of malignancy. A 1 year screening mammogram is recommended. 4T-score: -1.9 51. Severe multilevel neural foraminal stenosis, as detailed above, predominantly due to facet arthrosis and uncovertebral hypertrophy 2. Mid multilevel central canal stenosis due to disc bulges with disc osteophyte complexes. Normal cervical cord signal and caliber. 6no acute fracture or subluxation multilevel discogenic changes and facet arthrosis as above 7Adenomatous polyp - repeat 5 years. 8benign Vital Signs Most recent to oldest [Reference Range]: 1 2 Patient Weight 69.9 kg (12/22/20 2:16 PM) Heart Rate 76 bpm (12/22/20 2:16 PM) Respiratory Rate 16 br/min (12/22/20 2:16 PM) Blood Pressure 135/82mmHg (12/22/20 3:01 PM) 144/76mmHg (12/22/20 2:16 PM) Cuff Pulse Pressure 68 mmHg (12/22/20 2:16 PM) BP Location # 1 Left Arm (12/22/20 2:16 PM) Social History Social History Type Response Tobacco 1 Smoking Status Never smoked cigaret chung Sex Female 1quit 1987
--- OUTSIDE RECORDS SUMMARY | 2022-12-12 21:47 | External Medical Summary | Summary of Care ---
Author Name Unknown Organization [place] [address] Care Team Providers Care Sash Finisher Name Role Phone Deja Oseguera MARY Primary Care Provider Reason for Visit * Reason Comments Neck Pain Encounter Details Date Type Department Care Team Description 01/19/2021 Office Visit Interventional Pain Center, [facility] [address] [facility] [place] [address] Katarzyna Soliman PA-C [address] [place] [address] [place] [address] Cervical radicular pain* Allergies No Known Active Allergiesdocumented as of this encounter (statuses as of 01/19/2021) Medications Medication Sig Dispensed Refills Start Date [...] units Capsule Take by mouth. 0 Active Everly 3 1200 MG CAPS 0 Active Biotin [...] 0 Active dilTIAZem HCl (CARDIZEM OINTMENT) 2% AR GEL Administer into the rectum 3 times [...] as of this encounter (statuses as of 01/19/2021) Active Problems Problem Noted Date Encounter for examination fo r normal comparison and control in clinical research program 08/28/2017 Overview: DO NOT DELETE [facility] DETECT Study: Project # [id number], Orthopedic Designer: Nando Villeda, MS, MPH. SUMMARY: Goal: Establish [...] contact study staff at ; after hours Orthopedic Designer via the [facility] soaking pit operator . - Please contact study team before resolving/deleting from patients problem list. Study phone number: [phone]. Diagnosis changed due to Research Module. Go [...] as of this encounter (statuses as of 01/19/2021) Resolved Problems Problem Noted Date Resolved Date Encounter for examination fo r normal comparison and control in clinical research program 08/28/2017 10/21/2019 Overview: DO NOT DELETE [facility] DETECT Study: Project # [id number], Orthopedic Designer: Jace Arrington, PhD. SUMMARY: Goal: Establish test [...] contact study staff at ; after hours Orthopedic Designer via the [facility] soaking pit operator . Please contact study team before resolving/deleting from patients problem list. Study phone number: [phone]. Diagnosis changed due to Research Module. Go [...] as of this encounter (statuses as of 01/19/2021) Immunizations Name Administration Dates Next Due PPD [...] Progress Notes * Katarzyna Soliman PA-C - 01/19/2021 11:01 AM EDT Name: Laurel Rios Date: 01/19/2021 HPI: Laurle Rios is a 81 year old female known to the Pain Management clinic presents due to neck and low back pain. Feels neck pain is more bothersome and prefers to focus on that region. Painradiates to B trapezius and UE, L > R today. Worse in the past month, no injury. Evaluated by PCP who updated C spine MRI, completed at [facility] - Similar to previous study in 2019, disc osteophyte complexes C4/5, C5/6 and C6/7 causing severe foraminal narrowing bilaterally and mild central stenosis, no area of high grade central stenosis. Rates pain 6/10 and is constant in nature. She is also very concerned with chronic watery eye, does follow with case manager specialist for this, although feels this is related to neck pain. Associated intermittent paresthesia B hands, affecting digits 3 through 5. Denies loss of dexterity. Denies bowel/bladder dysfunction. Using tylenol, cymbalta, gabapentin, zanaflex for pain relief. Hx of injections for neck pain with Dr. Landaverde. Completes daily home stretching/e xercise program for neck discomfort. Continues chiropractic manipulation which does provide some relief. Hx of caudal JOEY 12/24/20, 09/17/20 - provided "some benefit." Although continued right axial back pain with prolonged activity. Denies progressive LE weakness or paresthesia. Did have consult with Jamila, did not recommend lumbar surgery. Questions if referral to [facility] could be considered. 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 • Everly 3 1200 MG CAPS • Biotin 1 MG Capsule • Ascorbic Acid (VITAMIN C) 1000 MG Tablet Take 1,000 mg by mouth daily. • fluticasone (FLONASE) 50 MCG/ACT nasal spray Administer 2 Sprays into each nostril daily. (Patient not taking: Reported on 08/26/2020) 1 Inhaler 5 • MEDICAL INSTRUCTIONS Use [...] day. • Witch Sheryl-Glycerin External Pad (A.[employer].R. Rebecach Sheryl) Apply topically to affected area as needed. • dilTIAZem HCl (CARDIZEM OINTMENT) 2% AR GEL Administer into the rectum 3 times a day. (Patient not taking: Reported on 08/26/2020) 30 g 3 • Hydrocortisone (Perianal) 2.5 % External Cream (Anusol-HC) Administer into the rectum 2 times aday. (Patient not taking: Reported on 09/17/2020) 30 g 3 • Aspirin 325 MG Oral Tablet Delayed Release Take 325 mg by mouth 3 times a day. Patient takes OTC for pain No current facility-administered medications for this visit. Review of patient's allergies indicates: No Known Allergies ROS: CONSTITUTIONAL: Denies anorexia, weight loss, fever, night sweats. RESPIRATORY: Denies shortness of breath, wheezing, productive cough. CARDIOVASCULAR: Denies chest pains, irregular heartbeat. HEME: Denies easy bruising and anticoagulation use. ROS EXAM: Remainder of ROS negative as discussed above in the HPI. PHYSICAL EXAM: There were no vitals taken for this visit. GENERAL: WD/WN female who is awake and alert. Does not appear to be in acute distress. MENTAL STATUS: Oriented x 3. Pleasant and cooperative with normal affect. Significant tangential thoughts. CERVICAL SPINE: Supple without gross abnormality. Skin is intact. Midline and B paraspinal musculature nontender. + L > R suprascapular tenderness. Full active range of motion with flexion, extension, lateral bending and rotation bilaterally. Greater Occipital Nerve Palpation: negative bilaterally. Cervical Facet Loading: negative bilaterally. Spurling's Test: positive bilaterally. LUMBAR SPINE: No gross abnormalities. Skin is intact. No lesions visualized. Midline and B paravertebral musculature nontender. + R sacroiliac joint tenderness. Full active ROM with flexion and extension of the lumbar spine. STRENGTH: 5/5 in all major motor groups upper and lower extremities bilaterally. SENSATION: Not formally tested. No gross sensory deficits upper and lower extremities bilaterally. GAIT/COORDINATION: Gait is intact. Ambulates without assistance. IMAGING: C spine MRI, [facility] 01/12/21 Similar to previous study in 2019 Disc osteophyte complexes C4/5, C5/6 and C6/7 causing severe foraminal narrowing bilaterally and mild central stenosis No area of high grade central stenosis ASSESSMENT: Cervical radicular pain RECOMMENDATION: Chronic neck pain with progressive UE pain, paresthesia for one month despite conservative care including daily home stretching/exericse program and medication mangement. Hx of MIGUELANGEL with Dr. Landaverde. PCP updated C spine MRI last month - revealed significant foraminal narrowing of lower C spine, no high grade central stenosis. Discussed cervical radicular pain, paresthesia and consideration of MIGUELANGEL using fluoroscopy. Risks including, but not limited to, bleeding, infection, worsening pain, nerve injury and possible steroid side effects were reviewed. Due to severity and duration of symptoms, willschedule cervical epidural steroid injection C7/T1. Katarzyna Soliman PA-C 01/19/2021 documented in this encounter Nursing Notes * Dominique Walker LPN - 01/19/2021 11:00 AM EDT Patient c/o neck and low back pain Uses Tramadol prn-states using it TID causes loss of bladder control Had cspine inj's in past from Slight improvement in low back pain with previous inj documented in this encounter Plan of Treatment Upcoming Encounters Date Type Specialty Care Team Description 02/08/2021 Hospital Encounter Surgery Ryder Curry, DO [address] [place] [address] [phone] 02/08/2021 Surgery Surgery Cousins, Ryder Machado, DO [address] [place] [address] [phone] INJECTION SPINE LUMBAR CERVICAL OR THORACIC Scheduled Orders Name Type Priority Associated Diagnoses Orde r Schedule INJECT DX/THER SUBSTANCE INTERLAMINAR CERVICAL/THORACIC W IMAGE GUIDE Procedures Routine Cervical radicular pain Ordered: 01/19/2021 Health Maintenance Due Date Last Done Comments COVID-19 Vaccine (1) 1952 Zoster Vaccines (2 of 3) 05/15/2007 03/20/2007 CKD GFR USE SMARTSET 77963 03/02/201808/31, 07/29/2017, 11/14/2016, Additional history exists CKD HGB USE SMARTSET 99886 07/29/201807/29, 03/31/2016, 08/05/2015, Additional history exists CKD PHOS USE SMARTSET 06639 07/29/201807/18, 03/31/2016, 08/06/2014 *DEPRESSION SCREENING,ANNUAL FOR PTS [...] as of this encounter Visit Diagnoses Diagnosis Cervical radicular pain- Primary Brachial neuritis or radiculitis nos Brachial neuritis Brachial neuritis or radiculitis nos documented in this encounter Advance Directives Documents on File Type Date Recorded Patient Service Parts Driver Expl anation Advance Directives and Living Will [...]
--- OUTSIDE RECORDS SUMMARY | 2022-12-12 21:47 | External Medical Summary | Summary of Care ---
Author Name Unknown Organization [place] [address] Care Team Providers Care Light Out Examiner Name Role Phone Deja Oseguera MARY Primary Care Provider Encounter Details Date Type Department Care Team Description 01/12/2021 Orders Only Interventional Pain Center, [facility] [address] [place] [id number] Cousins, Ryder Machado, DO [address] [facility], [place] [id number] Allergies No Known Active Allergiesdocumented as of [...] units Capsule Take by mouth. 0 Active Sheffield 3 1200 MG CAPS 0 Active Biotin [...] program 08/28/2017 Overview: DO NOT DELETE - [facility] DETECT Study: Project # [id number], Home Service Consultant: Nando Villeda, MS, MPH. SUMMARY: Goal: Establish [...] contact study staff at ; after hours Home Service Consultant via the [facility] coremaking machine operator . - Please contact study team before resolving/deleting from patients problem list. Study phone number: [phone]. Diagnosis changed due to Research Module. Go [...] [facility] DETECT Study: Project # [id number], Home Service Consultant: Jace Arrington, PhD. SUMMARY: Goal: Establish test [...] contact study staff at ; after hours Home Service Consultant via the [facility] hospital coremaking machine operator . Please contact study team before resolving/deleting from patients problem list. Study phone number: [phone]. Diagnosis changed due to Research Module. Go [...] Curry, DO [address] [place] [address] [phone] 02/08/2021 Surgery Surgery Cousins, Ryder Machado, DO [address] [place] [address] [phone] INJECTION SPINE LUMBAR CERVICAL OR THORACIC Health Maintenance Due Date Last Done Comments COVID-19 Vaccine (1) 1952 Zoster Vaccines (2 of 3) 05/15/2007 03/20/2007 CKD GFR USE SMARTSET 26949 03/02/201808/31, 07/29/2017, 11/14/2016, Additional history exists CKD HGB USE SMARTSET 85215 07/29/201807/29, 03/31/2016, 08/05/2015, Additional history exists CKD PHOS USE SMARTSET 69162 07/29/201807/18, 03/31/2016, 08/06/2014 *DEPRESSION SCREENING,ANNUAL FOR PTS [...] - MRI (IMAGES ONLY, NO REPORT) Routine 01/12/2021 11:35 AM EDT documented in this encounter Results * RADIOLOGY EXAM - MRI (IMAGES ONLY, NO REPORT) (01/12/2021 11:35 AM EDT) Specimen Narrative Performed At This is an imaging study not interpreted or resulted by a [facility]ologist. documented in this encounter Advance Directives Documents on File Type Date Recorded Patient Measurement Psychologist Expl anation Advance Directives and Living Will [...]
--- OUTSIDE RECORDS SUMMARY | 2022-12-12 21:47 | External Medical Summary | Summary of Care ---
Author Name Unknown Organization [place] [address] Care Team Providers Care Pearl Hand Name Role Phone Deja Oseguera MARY Primary Care Provider Encounter Details Date Type Department Care Team Description 10/30/2020 Orders Only Interventional Pain Center, [facility] [address] [place] [id number] Cousins, Ryder Machado, DO [address] [facility], [place] [id number] Allergies No Known Active Allergiesdocumented as of [...] units Capsule Take by mouth. 0 Active Clyo 3 1200 MG CAPS 0 Active Biotin [...] program 08/28/2017 Overview: DO NOT DELETE - [facility] DETECT Study: Project # [id number], Cutter First: Nando Villeda, MS, MPH. SUMMARY: Goal: Establish [...] contact study staff at ; after hours Cutter First via the [facility] hospital waxer operator . - Please contact study team before resolving/deleting from patients problem list. Study phone number: [phone]. Diagnosis changed due to Research Module. Go [...] [facility] Study: Project # [id number], Cutter First: Jace Arrington, PhD. SUMMARY: Goal: Establish test [...] contact study staff at ; after hours Cutter First via the [facility] hospital waxer operator . Please contact study team before resolving/deleting from patients problem list. Study phone number: [phone]. Diagnosis changed due to Research Module. Go [...] Curry, DO [address] [place] [address] [phone] 02/08/2021 Surgery Surgery Cousins, Ryder Machado, DO [address] [place] [address] [phone] INJECTION SPINE LUMBAR CERVICAL OR THORACIC Health Maintenance Due Date Last Done Comments COVID-19 Vaccine (1) 1952 Zoster Vaccines (2 of 3) 05/15/2007 03/20/2007 CKD GFR USE SMARTSET 05340 03/02/201808/31, 07/29/2017, 11/14/2016, Additional history exists CKD HGB USE SMARTSET 16028 07/29/201807/29, 03/31/2016, 08/05/2015, Additional history exists CKD PHOS USE SMARTSET 20247 07/29/201807/18, 03/31/2016, 08/06/2014 *DEPRESSION SCREENING,ANNUAL FOR PTS [...] - GENERAL RAD (IMAGES ONLY,NO REPORT) Routine 10/30/2020 3:05 PM EDT documented in this encounter Results * RADIOLOGY EXAM - GENERAL RAD (IMAGES ONLY,NO REPORT) (10/30/2020 3:05 PM EDT) Specimen Narrative Performed At This is an imaging study not interpreted or resulted by a [facility] radiologist. documented in this encounter Advance Directives Documents on File Type Date Recorded Patient Superintendent Drilling And Production Expl anation Advance Directives and Living Will [...]
--- OUTSIDE RECORDS SUMMARY | 2022-12-12 21:47 | External Medical Summary | Continuity of Care Document ---
Author Name Unknown Organization [place] [address] [address] Address [address] [place] [address] Care Team Providers Care Labor Relations Officer Name Role Phone Deja Oseguera Primary Care Physician [phone] Encounter [facility] [id number] Date(s): 01/08/21 - 01/08/21 [facility] [address], [address] [place], [place] [address] [phone] Discharge Disposition: Home or Self Care Attending Physician: DO Hendricks Jason D Referring Physician: MARY Oseguera Jill Nicole Allergies, [...] live 6 03/20/07 Recorded 1Result Comment: [facility] 2Result Comment: 2019-11-27: Historical information-source unspecified 3Result Comment: 2019-11-27: Historical information-source unspecified 4Result Comment: 2019-11-27: Historical information-source unspecified 5Result Comment: 2019-11-27: Historical information-source unspecified 6Result Comment: 2019-11-27: Historical information-source unspecified Medications Anusol-HC 2.5% rectal cream Start: 11/26/19 13:21:00 EDT, 1 appl, [place], tid, Disp# 30 g, Refills: 1, to affected area, Pharmacy: [facility]/pharmacy #[id number], 160, cm, 08/26/19 13:50:00 [...] on package labeling for 6 days., Pharmacy: [id number] Start Date: 08/05/20 Stop Date: 08/11/20 Status: Ordered MiraLax Start: 10/19/15 13:31:00 Start Date: 10/19/15 Status: Ordered Ocuvite Extra oral tablet Start: 08/10/16 13:14:00, 1 tab, PO, Daily Start Date: 08/10/16 Status: Ordered Roberts-3 oral capsule Start: 01/16/18 13:54:00 EDT, 1,200 mg =, Daily Start Date: 01/16/18 Status: Ordered oxyCODONE 5 mg oral tablet Start: 08/19/20 10:26:00 EDT, 1 tab, PO, q6h, Disp# 10 tab, Refills: 0, Note to Pharmacy: continuedtherapy, PRN: as needed for pain, Pharmacy: [id number] Start Date: 08/19/20 Status: Ordered [...] reviewed, PRN: as needed for pain, Pharmacy: [facility] Start Date: 12/15/20 Stop Date: [...] 3, TAKE 1 TABLET DAILY, Pharmacy: [facility] Start Date: 09/28/20 Status: Ordered Vitamin D3 5000 intl units oral capsule Start: 11/07/17 14:30:00 EDT Start Date: 11/07/17 Status: Ordered Zanaflex 4 mg oral tablet Start: 11/09/15 15:42:00, 1 tab, PO, q8h, Disp# 90 tab, Refills: 2, Begin with a half tablet and advance to a full tablet as tolerated, Pharmacy: [id number] Start Date: 11/09/15 Stop Date: 02/07/16 Status: Ordered Problem List Condition Effective Dates Status Health [...] Active Right ankle sprain(Confirmed) Active 1B/L 2shoulder Procedures Procedure Date Related [...] 1944 Completed Cataract Completed Mammogram - screening 9 C ompleted 1impression 1. Multilevel degenerative changes most severe [...] 7Adenomatous polyp - repeat 5 years. 8benign 9Impression: There is no mammographic evidence of malignancy. A 1 year screening mammogram is recommended. (01/06/2022) The patient will receive written notification of the results. Social History Social History Type Response Tobacco 1 Smoking Status Never smoked cigaret chung Sex Female 1quit 1987
--- OUTSIDE RECORDS SUMMARY | 2022-12-12 21:47 | External Medical Summary | Continuity of Care Document ---
Author Name Unknown Organization [address] Address [address] [place] [id number] Care Team Providers Care Bass Mechanism Maker Name Role Phone Deja Oseguera Primary Care Physician [phone] Encounter [facility] [id number] Date(s): 01/29/21 - 01/29/[address] [address] [phone] Encounter Diagnosis Neck pain(Discharge Diagnosis) - 01/29/21 Mitral regurgitation(Discharge Diagnosis) - 01/29/21 Ear pressure(Discharge Diagnosis) - 01/29/21 Discharge Disposition: Home or Self Care Attending Physician: MARY Oseguera Jill Nicole Referring Physician: MARY Oseguera Jill Nicole Allergies, Adverse Reactions, Alerts Substance Reaction Severity Status predniSONE severe depression Active Assessment and Plan Extracted from: Title:Office Visit Note Author:MARY Oseguera Ji ll Nicole Date:01/29/21 1. Neck pain Stable follow up with Dr. Edwards's as discussed for pain management Patient advised to call for any questions, concerns, persistent, or worsening symptoms or to call 911 or go to the ED for any emergencies. Denies any questions or concerns at this time 2. Mitral regurgitation Discussed her echocardiogram results. Discussed healthy diet, exercise 150 minutes weekly, and good blood pressure control. She denies any questions or concerns regarding her echo at this time. Will get repeat echo in 1 year or earlier if she develops any symptoms. 3. Ear pressure Middle ear effusion to right ear Mucinex plain Flonase x 1-2 weeks Follow up if symptoms persist Immunizations Given and Recorded Vaccine Date Status [...] live 6 03/20/07 Recorded 1Result Comment: [facility] 2Result Comment: 2019-11-27: Historical information-source unspecified 3Result Comment: 2019-11-27: Historical information-source unspecified 4Result Comment: 2019-11-27: Historical information-source unspecified 5Result Comment: 2019-11-27: Historical information-source unspecified 6Result Comment: 2019-11-27: Historical information-source unspecified Medications Anusol-HC 2.5% rectal cream Start: 11/26/19 13:21:00 EDT, 1 appl, [place], tid, Disp# 30 g, Refills: 1, to affected area, Pharmacy: [facility]/pharmacy #[id number], 160, cm, 08/26/19 13:50:00 [...] PO, Daily Start Date: 08/10/16 Status: Ordered [place]-3 oral capsule Start: 01/16/18 13:54:00 EDT, 1,200 mg =, Daily Start Date: 01/16/18 Status: Ordered oxyCODONE 5 mg oral tablet Start: 08/19/20 10:26:00 EDT, 1 tab, PO, q6h, Disp# 10 tab, Refills: 0, Note to Pharmacy: continuedtherapy, PRN: as needed for pain, Pharmacy: [facility] Start Date: 08/19/20 [...] reviewed, PRN: as needed for pain, Pharmacy: [facility] Start Date: 12/15/20 [...] TAKE 1 TABLET DAILY, Pharmacy: [facility] Start Date: 09/28/20 Status: Ordered Vitamin D3 5000 intl units oral capsule Start: 11/07/17 14:30:00 EDT Start Date: 11/07/17 Status: Ordered Zanaflex 4 mg oral tablet Start: 11/09/15 15:42:00, 1 tab, PO, q8h, Disp# 90 tab, Refills: 2, Begin with a half tablet and advance to a full tablet as tolerated, Pharmacy: [id number] Start Date: 11/09/15 Stop Date: 02/07/16 Status: Ordered Mental Status 01/29/21 Barriers to Learning one year None evide [...] Effective Dates Health Status Clinical Service Informant Neck pain Discharge Diagnosis 01/29/21 Mitral regurgitation Discharge Diagnosis 01/29/21 Ear pressure Discharge Diagnosis 01/29/21 Procedures Procedure Date Related Diagnosis Body Site [...] to oldest [Reference Range]: 1 Patient Weight 69.9 kg (01/29/21 2:24 PM) Heart Rate 76 bpm (01/29/21 2:24 PM) Respiratory Rate 16 br/min (01/29/21 2:24 PM) Blood Pressure 140/88mmHg (01/29/21 2:24 PM) Cuff Pulse Pressure 52 mmHg (01/29/21 2:24 PM) BP Location # 1 Left Arm (01/29/21 2:24 PM) Social History Social History Type Response Tobacco 1 Smoking Status Never smoked cigaret chung Sex Female 1quit 1987
--- OUTSIDE RECORDS SUMMARY | 2022-12-12 21:47 | External Medical Summary | Summary of Care ---
Author Name Unknown Organization [place] [address] Care Team Providers Care Sweet Potato Disintegrator Name Role Phone Deja Oseguera MARY Primary Care Provider Encounter Details Date Type Department Care Team Description 10/30/2020 Orders Only Interventional Pain Center, [facility] [address] [place] [id number] Cousins, Ryder Machado, DO [address] [facility] [place], [place] [id number] Allergies No Known Active Allergiesdocumented as of [...] units Capsule Take by mouth. 0 Active [place] 3 1200 MG CAPS 0 Active Biotin [...] 0 Active dilTIAZem HCl (CARDIZEM OINTMENT) 2% SC GEL Administer into the rectum 3 times [...] program 08/28/2017 Overview: DO NOT DELETE - [facility] DETECT Study: Project # [id number], Timber Deadener: Nando Villeda, MS, MPH. SUMMARY: Goal: Establish [...] contact study staff at ; after hours Timber Deadener via the [facility] hospital drying machine operator package yarns . - Please contact study team before resolving/deleting from patients problem list. Study phone number: [phone]. Diagnosis changed due to Research Module. Go [...] program 08/28/2017 10/21/2019 Overview: DO NOT DELETE [facility] DETECT Study: Project # [id number], Timber Deadener: Jace Arrington, PhD. SUMMARY: Goal: Establish test [...] contact study staff at ; after hours Timber Deadener via the [facility] hospital drying machine operator package yarns . Please contact study team before resolving/deleting from patients problem list. Study phone number: [phone]. Diagnosis changed due to Research Module. Go [...] Curry, DO [address] [place] [address] [phone] 02/08/2021 Surgery Surgery Cousins, Ryder Machado, DO [address] [place] [address] [phone] INJECTION SPINE LUMBAR CERVICAL OR THORACIC Health Maintenance Due Date Last Done Comments COVID-19 Vaccine (1) 1952 Zoster Vaccines (2 of 3) 05/15/2007 03/20/2007 CKD GFR USE SMARTSET 19246 03/02/201808/31, 07/29/2017, 11/14/2016, Additional history exists CKD HGB USE SMARTSET 76825 07/29/201807/29, 03/31/2016, 08/05/2015, Additional history exists CKD PHOS USE SMARTSET 84648 07/29/201807/18, 03/31/2016, 08/06/2014 *DEPRESSION SCREENING,ANNUAL FOR PTS [...] GENERAL RAD (IMAGES ONLY,NO REPORT) Routine 10/30/2020 3:00 PM EDT documented in this encounter Results * RADIOLOGY EXAM - GENERAL RAD (IMAGES ONLY,NO REPORT) (10/30/2020 3:00 PM EDT) Specimen Narrative Performed At This is an imaging study not interpreted or resulted by a [facility] or [facility] contracted radiologist. documented in this encounter Advance Directives Documents on File Type Date Recorded Patient Weight Calculator Expl anation Advance Directives and Living Will [...]
--- OUTSIDE RECORDS SUMMARY | 2022-12-12 21:48 | External Medical Summary | Continuity of Care Document ---
Author Name Unknown Organization [id number] Address [address] [place] [id number] Care Team Providers Care Photograph Mounter Name Role Phone Deja Oseguera Primary Care Physician [phone] [id number] Date(s): 10/28/20 - 10/28/20 [facility] [address] [employer] [place] [facility] [address] [facility] Medicine [address] [place] [address] us [phone] Encounter Diagnosis Tinea unguium(Discharge Diagnosis) - 10/28/20 Peripheral vascular disease(Discharge Diagnosis) - 10/28/20 Hammer toe(Discharge Diagnosis) - 10/28/20 Hallux valgus(Discharge Diagnosis) - 10/28/20 Discharge Disposition: Home or Self Care Attending Physician: SARAH Donaldson Christina L Referring Physician: MARY Oseguera Jill Nicole Allergies, Adverse Reactions, Alerts Substance Reaction Severity Status predniSONE severe depression Active Assessment and Plan Extracted from: Title:Follow Up Visit Author:SARAH Donaldson, Leticia Macias Date:10/28/20 1. Tinea unguium No treatment performed per patient request 2. Peripheral vascular disease Today patient and I had over a 40-minute discussion where our discussions ranged anywhere from her back pain to her foot pain to her previous surgery we discussed and reviewed again the types of shoe gear that I recommended at her previous appointment. I again discussed with her that we do not provide any type of foot bath to her feet she did decline any treatment to her toenails. I discussed with her multiple times that the only way we can correct bunions and hammertoes this with surgery again she is refusing any type of surgery to her feet I discussed with her that if surgery is not something she is interested in I recommend conservative treatment consisting of the gel hammertoe sleeve which she is currently wearing custom-made orthotics which she is currently wearing from [employer] as well as supportive shoes with wide toe boxes which were worn today. She at times was again belittling to me and repeating to me she does not know what sort of doctor I am I again reviewed the procedures that a lining folder performs she was more understanding at the end of her evaluation and I have recommended for her to follow-up on an as-needed basis 3. Hammer toe 4. Hallux valgus Immunizations Given and Recorded Vaccine Date Status Refusal Reason influenza virus vaccine, inactivated 1 12/16/19 Re corded influenza virus vaccine, inactivated 12/21/18 Sanjeev rded pneumococcal 23-valent vaccine 2 10/13/16 Recorded pneumococcal 23-valent vaccine 3 08/16/02 Recorded pneumococcal 13-valent vaccine 4 07/08/15 Recorded tetanus/diphtheria/pertuss, acel (Tdap) 5 12/20/11 Recorded zoster vaccine live 6 03/20/07 Recorded 1Result Comment: [facility] 2Result Comment: 2019-11-27: Historical information-source unspecified 3Result Comment: 2019-11-27: Historical information-source unspecified 4Result Comment: 2019-11-27: Historical information-source unspecified 5Result Comment: 2019-11-27: Historical information-source unspecified 6Result Comment: 2019-11-27: Historical information-source unspecified Medications Anusol-HC 2.5% rectal cream Start: 11/26/19 13:21:00 EDT, 1 appl, TN, tid, Disp# 30 g, Refills: 1, to affected area, Pharmacy: [facility]/pharmacy #[id number], 160, cm, 08/26/19 13:50:00 EDT, Height [...] on package labeling for 6 days., Pharmacy: [id number] Start Date: 08/05/20 Stop Date: 08/11/20 Status: Ordered MiraLax Start: 10/19/15 13:31:00 Start Date: 10/19/15 Status: Ordered Ocuvite Extra oral tablet Start: 08/10/16 13:14:00, 1 tab, PO, Daily Start Date: 08/10/16 Status: Ordered [place]-3 oral capsule Start: 01/16/18 13:54:00 EDT, 1,200 mg =, Daily Start Date: 01/16/18 Status: Ordered oxyCODONE 5 mg oral tablet Start: 08/19/20 10:26:00 EDT, 1 tab, PO, q6h, Disp# 10 tab, Refills: 0, Note to Pharmacy: continuedtherapy, PRN: as needed for pain, Pharmacy: [facility] Start Date: 08/19/20 [...] Ordered traMADol 50 mg oral tablet Start: 08/11/20 13:00:00 EDT, 1 tab, PO, q8h, Disp# 60 tab, Refills: 1, PRN: as needed for pain, Pharmacy: [facility] Start Date: 08/11/20 Status: Ordered tretinoin 0.05% topical cream Start: 08/10/16 13:40:00, 1 appl, topical, qhs, Disp# 45 g, Refills: 1, To involved face nightly Start Date: 08/10/16 Status: Ordered unknown medication Start: 04/18/18 13:40:00 EST, Note to Pharmacy: [facility] Start Date: 04/18/18 Status: Ordered valsartan 80 mg oral tablet See Instructions, Disp# 90 tab, Refills: 3, TAKE 1 TABLET DAILY, Pharmacy: [facility] Start Date: 09/28/20 Status: Ordered Vitamin D3 5000 intl units oral capsule Start: 11/07/17 14:30:00 EDT Start Date: 11/07/17 Status: Ordered Zanaflex 4 mg oral tablet Start: 11/09/15 15:42:00, 1 tab, PO, q8h, Disp# 90 tab, Refills: 2, Begin with a half tablet and advance to a full tablet as tolerated, Pharmacy: [facility] Start Date: 11/09/15 Stop Date: 02/07/16 Status: Ordered Mental Status 10/28/20 Barriers to Learning one year None evide nt Mandatory Health Literacy Documentation Yes Health Literacy Communication Barriers N ever Primary Language Solomon Islander Problem List Condition Effective Dates Status Health [...] Effective Dates Health Status Clinical Service Informant Tinea unguium Discharge Diagnosis 10/28/20 Peripheral vascular disease Discharge Diagnosis 10/28/20 Hammer toe Discharge Diagnosis 10/28/20 Hallux valgus Discharge Diagnosis 10/28/20 Procedures Procedure Date Related Diagnosis Body Site Status MRI of lumbar spine 1 08/13/20 Com pleted Mammogram 2 12/23/19 Completed Mammogram 3 12/19/18 Completed Bone density scan 4 8/6/19 Compl eted MRI 5 05/30/[address] [...] 7Adenomatous polyp - repeat 5 years. 8benign Social History Social History Type Response Tobacco 1 Smoking Status Never smoked cigaret chung Sex Female 1quit 1987
--- OUTSIDE RECORDS SUMMARY | 2022-12-12 21:48 | External Medical Summary | Summary of Care ---
Author Name Unknown Organization [facility] [place] [address] Care Team Providers Care Ranch Hand Supervisor Name Role Phone Chelsea Berumen Primary Care Provid er Encounter Details Date Type Department Care Team Description 08/13/2020 Orders Only Interventional Pain Center, [facility] [address] [place] [address] Katarzyna Soliman PA-C [address] [place] [address] Allergies Active Allergy Reactions Severity Noted Date Comments Prednisone Other (Please comment) 12/22/2016 Severe depression documented as of this encounter (statuses as of 08/21/2020) Medications Medication Sig Dispensed Refills Start Date [...] units Capsule Take by mouth. 0 Active [place] 3 1200 MG CAPS 0 Active Biotin [...] a day. 30 g 3 01/15/2020 Active documented as of this encounter (statuses as of 08/21/2020) Active Problems Problem Noted Date Encounter for examination fo r normal comparison and control in clinical research program 08/28/2017 Overview: DO NOT DELETE - [facility] DETECT Study: Project # [id number], Mash Filter Press Operator: Nando Villeda, MS, MPH. SUMMARY: Goal: [...] contact study staff at ; after hours Mash Filter Press Operator via the [facility] hospital sticker operator . - Please contact study team before resolving/deleting from patients problem list. Study phone number: [phone]. Diagnosis changed due to Research Module. Go [...] as of this encounter (statuses as of 08/21/2020) Resolved Problems Problem Noted Date Resolved Date Encounter for examination fo r normal comparison and control in clinical research program 08/28/2017 10/21/2019 Overview: DO NOT DELETE [facility] DETECT Study: Project # [id number], Mash Filter Press Operator: Jace Arrington, PhD. SUMMARY: Goal: Establish [...] contact study staff at ; after hours Mash Filter Press Operator via the [facility] hospital sticker operator . Please contact study team before resolving/deleting from patients problem list. Study phone number: [phone]. Diagnosis changed due to Research Module. Go [...] as of this encounter (statuses as of 08/21/2020) Immunizations Name Administration Dates Next Due PPD [...] Assigned at Date Recorded Not on file documented as of this encounter Plan of Treatment Upcoming Encounters Date Type Specialty Care Team Description 08/26/2020 Office Visit Pain Management Day, BETTY Colón [address] [place] [address] [place] [address] Health Maintenance Due Date Last Done Comments COVID-19 Vaccine (1) 1952 Zoster Vaccines (2 of 3) 05/15/2007 03/20/2007 CKD GFR USE SMARTSET 98544 03/02/201808/31, 07/29/2017, 11/14/2016, Additional history exists CKD HGB USE SMARTSET 01638 07/29/201807/29, 03/31/2016, 08/05/2015, Additional history exists CKD PHOS USE SMARTSET 18548 07/29/201807/18, 03/31/2016, 08/06/2014 *DEPRESSION SCREENING,ANNUAL FOR PTS 12 AND OVER 08/14/2018 Prediabetes-Yearly Hemoglobin A1c 08/24/2018 08/24/2017, 08/24/2017 *BASIC METABOLIC PANEL (BMP) FOR HTN YEARLY 09/03/2018 Dexa Scan 03/15/2019 03/15/2012 DIABETES SCREEN EVERY 3 YRS-AGE 45 AND ABOVE 08/31/2020 08/31/2017, 08/24/2017, 07/29/2017, Additional history exists DTaP,Tdap,and Td Vaccines (2 - Td) 12/19/2021 12/20/2011 COLONOSCOPY-EVERY 5 YRS AGES 18-100 12/29/2021 12/29/2016, 12/29/2016 Pneumococcal Vaccine: 65+ Years Completed 10/13/2016, 07/08/2015, 08/16/2002 Influenza Vaccine (FLU shot) Completed , 12/21/2018, 12/21/2017, Additional history exists MENINGOCOCCAL (MENACTRA/MENVEO) Aged Out No longer eligible based on patient's age to complete this topic documented as of this encounter Implants Not on filedocumented as of this encounter Procedures Procedure Name Priority Date/Time Associated Diagnosis Comments RADIOLOGY EXAM - MRI (IMAGES ONLY, NO REPORT) Routine 08/13/2020 3:50 PM EDT documented in this encounter Results * RADIOLOGY EXAM - MRI (IMAGES ONLY, NO REPORT) (08/13/2020 3:50 PM EDT) Specimen Narrative Performed At This is an imaging study not interpreted or resulted by a [facility] or [facility] contracted radiologist. documented in this encounter Advance Directives Documents on File Type Date Recorded Patient Spring Encaser Expl anation Advance Directives and Living Will [...]
--- OUTSIDE RECORDS SUMMARY | 2022-12-12 21:48 | External Medical Summary | Summary of Care ---
Author Name Unknown Organization [place] [address] Care Team Providers Care Standpipe Tender Name Role Phone Chelsea Berumen Primary Care Provid er Reason for Visit * Reason Comments Lumbar Pain W/radiation Encounter Details Date Type Department Care Team Description 10/06/2020 Telemedicine Interventional Pain Center, [facility] [address] [place] [address] CouRyder price DO [address] [facility] [place] [address] [phone] Lumbar radicular pain* Allergies Active Allergy Reactions Severity Noted Date Comments Prednisone Other (Please comment) 12/22/2016 Severe depression documented as of this encounter (statuses as of 10/06/2020) Medications Medication Sig Dispensed Refills Start Date [...] units Capsule Take by mouth. 0 Active [place] 3 1200 MG CAPS 0 Active Biotin [...] 0 Active dilTIAZem HCl (CARDIZEM OINTMENT) 2% AZ GEL Administer into the rectum 3 times [...] traMADol HCl 50 MG Oral Tablet (Ultram) 50 mg. 0 08/11/2020 1 Discontinue d(Medicatio n List Clean Up) documented as of this encounter (statuses as of 10/06/2020) Active Problems Problem Noted Date Encounter for examination fo r normal comparison and control in clinical research program 08/28/2017 Overview: DO NOT DELETE - [facility] Study: Project # [id number], Career Development Manager: Nando Villeda, MS, MPH. SUMMARY: Goal: [...] contact study staff at ; after hours Career Development Manager via the [facility] hospital ground surveillance systems operator . - Please contact study team before resolving/deleting from patients problem list. Study phone number: [phone]. Diagnosis changed due to Research Module. Go [...] as of this encounter (statuses as of 10/06/2020) Resolved Problems Problem Noted Date Resolved Date Encounter for examination fo r normal comparison and control in clinical research program 08/28/2017 10/21/2019 Overview: DO NOT DELETE [facility] DETECT Study: Project # [id number], Career Development Manager: Jace Arrington, PhD. SUMMARY: Goal: Establish [...] contact study staff at ; after hours Career Development Manager via the [facility] hospital ground surveillance systems operator . Please contact study team before resolving/deleting from patients problem list. Study phone number: [phone]. Diagnosis changed due to Research Module. Go [...] as of this encounter (statuses as of 10/06/2020) Immunizations Name Administration Dates Next Due PPD [...] as of this encounter Progress Notes * Cousins, Ryder Carter, DO - 10/06/2020 9:26 AM EDT Name: Laurel Rios Date: 10/06/2020 HPI: Laurel Rios is a 80 year old female who presents for telephonic visit.After connecting to thepatient via telephone, the patient was identified by name and date of . Patient was then informed that this was a telephone call only visit. The patient agreed to participate. Visit Disposition: Routine follow-up Total call duration was 12 minutes. Much improved following caudal JOEY, but still has some buttock pain early in the am and if she walks without her SI joint belt. History: Past Medical History: Diagnosis Date • Benign hypertension with CKD (chronic kidney disease) stage III ([facility]) 01/18/2017 • Cervicalgia due to muscle spasms [...] SPINE LUMBAR OR SACRAL performed by Ryder Curry DO at OR [facility] • LAPAROSCOPY; CHOLECYSTECTOMY 1991 Cholecystectomy, Laproscopic • REVISE UPPER EYELID 06/10/2010 both eyes upper lid blepharoplasties, Dr. Hu • TOTAL HYSTERECTOMY 1989 still has one ovary • TREAT ANKLE FRACTURE W/MANIPULATION Left surgical repair ankle fracture Current Outpatient Medications Medication Sig Dispense Refill Aspirin 325 MG Oral Tablet Delayed Release Take 325 mg by mouth 3 times a day. Patient takes OTC for pain dilTIAZem HCl (CARDIZEM OINTMENT) 2% AZ GEL Administer into the rectum 3 times a day. (Patient not taking: Reported on 08/26/2020) 30 g 3 Hydrocortisone (Perianal) 2.5 % External Cream (Anusol-HC) Administer into the rectum 2 times a day. (Patient not taking: Reported on 09/17/2020) 30 g 3 Witch Sheryl-Glycerin External Pad (A.E.R. Witch Sheryl) Apply topically to affected area as needed. Cyanocobalamin (VITAMIN B 12) 500 MCG TABS Take by mouth. glycopyrrolate (ROBINUL) 1 MG Tablet Take 1 mg by mouth 3 times a day. valsartan (DIOVAN) 80 MG Tablet Take 1 Tab by mouth daily. 90 Tab 1 acetaminophen (TYLENOL EXTRA STRENGTH) 500 MG Tablet Take 500 mg by mouth every 6 hours as needed for Pain. MEDICAL INSTRUCTIONS Use as directed. Bi-Est estrogen cream --apply cream to arm every other day fluticasone (FLONASE) 50 MCG/ACT nasal spray Administer 2 Sprays into each nostril daily. (Patient not taking: Reported on 08/26/2020) 1 Inhaler 5 Ascorbic Acid (VITAMIN C) 1000 MG Tablet Take 1,000 mg by mouth daily. Biotin 1 MG Capsule Cholecalciferol (VITAMIN D-3) 1000 units Capsule Take by mouth. [place] 3 1200 MG CAPS dicyclomine (BENTYL) 10 MG Capsule Take 1 Cap by mouth 4 times a day as needed for Cramping. For abdominal pain (Patient not taking: Reported on 09/17/2020) 120 Cap 5 DULoxetine (CYMBALTA) 20 MG CPEP 30 mg. gabapentin (NEURONTIN) 100 MG Capsule 200 mg. Take 3 times a day 1 Cap 0 tiZANidine (ZANAFLEX) 4 MG Tablet Take 0.5 Tabs by mouth. 1 Tab 0 polyethylene glycol 3350 (MIRALAX) 255 gram powder Take 17 g by mouth 2 times a day. Dissolve one heaping tablespoon in 8 ounces of water or juice. 1 Bottle 2 cyclosporine (RESTASIS) 0.05 % ophthalmic emulsion Instill 1 Drop into both eyes every 12 hours. affected eye(s) 32 Vial 11 diazepam (VALIUM) 5 MG Tablet TAKE 1/2 TO ONE TABLET UP TO TWICE A DAY NEEDED FOR MUSCLE SPASM 180 Tab 1 PARoxetine (PAXIL) 30 MG Tablet Take 1 Tab by mouth daily. 90 Tab 3 PROGESTERONE 1000 MG/60GM EX CREA apply once daily RED YEAST RICE 600 MG PO CAPS 1 daily STOOL SOFTENER 100 MG PO TABS 1 tablet daily as needed for constipation Review of patient's allergies indicates: Allergen Reactions • Prednisone Other (Please comment) Severe depression Social History Tobacco Use Smoking Status Former Smoker • Quit date: 03/19/1988 • Years since quittin.5 Smokeless Tobacco Never Used Tobacco Comment quit 1987 Social History Substance and Sexual Activity Alcohol Use No ASSESSMENT: Lumbar radicular pain RECOMMENDATION: While she still have some degree symptomatology, she does acknowledge that she is much improved from baseline. I would defer further steroid containing injections for now has she did have an SI jointinjection done by another physician in June. She will contact me if symptoms worsen significantly but otherwise continue with her current medical regimen and home exercise program. Ryder Curry DO 10/06/2020 9:27 AM documented in this encounter Plan of Treatment Health Maintenance Due Date Last Done Comments COVID-19 Vaccine (1) 1952 Zoster Vaccines (2 of 3) 05/15/2007 03/20/2007 CKD GFR USE SMARTSET 29368 03/02/201808/31, 07/29/2017, 11/14/2016, Additional history exists CKD HGB USE SMARTSET 49351 07/29/201807/29, 03/31/2016, 08/05/2015, Additional history exists CKD PHOS USE SMARTSET 59439 07/29/201807/18, 03/31/2016, 08/06/2014 *DEPRESSION SCREENING,ANNUAL FOR PTS [...] Documents on File Type Date Recorded Patient Field Services Director Expl anation Advance Directives and Living Will [...]
--- OUTSIDE RECORDS SUMMARY | 2022-12-12 21:48 | External Medical Summary | Summary of Care ---
Author Name Unknown Organization [place] [address] Care Team Providers Care Meter Supervisor Name Role Phone Chelsea Berumen Primary Care Provid er Reason for Visit * Reason Comments Back Pain Encounter Details Date Type Department Care Team Description 08/26/2020 Office Visit Interventional Pain Center, [facility] [address] [facility] [place] [address] Katarzyna Soliman PA-C [address] [place] [address] [place] [address] Lumbar radicular pain* Allergies Active Allergy Reactions Severity Noted Date Comments Prednisone Other (Please comment) 12/22/2016 Severe depression documented as of this encounter (statuses as of 08/26/2020) Medications Medication Sig Dispensed Refills Start Date [...] units Capsule Take by mouth. 0 Active [place] 3 1200 MG CAPS 0 Active Biotin [...] 0 Active Witch Sheryl-Glycerin External Pad (A.E.R. Na Weinbergel) Apply topically to affected area as needed. 0 Active dilTIAZem HCl (CARDIZEM OINTMENT) 2% SC GEL Administer into the rectum 3 times a day. 30 g 3 01/15/2020 Active Additional Information Patient not taking. Reported on 08/26/2020 Hydrocortisone (Perianal) 2.5 % External Cream (Anusol-HC) Administer into the rectum 2 times a day. 30 g 3 01/15/2020 Active traMADol HCl 50 MG Oral Tablet (Ultram) 50 mg. 0 08/11/2020 Active documented as of this encounter (statuses as of 08/26/2020) Active Problems Problem Noted Date Encounter for examination fo r normal comparison and control in clinical research program 08/28/2017 Overview: DO NOT DELETE - [facility] DETECT Study: Project # [id number], City Route Driver: Nando Villeda, MS, MPH. SUMMARY: Goal: Establish [...] contact study staff at ; after hours City Route Driver via the [facility] hospital shield operator . - Please contact study team before resolving/deleting from patients problem list. Study phone number: [phone]. Diagnosis changed due to Research Module. Go [...] as of this encounter (statuses as of 08/26/2020) Resolved Problems Problem Noted Date Resolved Date Encounter for examination fo r normal comparison and control in clinical research program 08/28/2017 10/21/2019 Overview: DO NOT DELETE [facility] DETECT Study: Project # [id number], City Route Driver: Jace Arrington, PhD. SUMMARY: Goal: Establish test [...] contact study staff at ; after hours City Route Driver via the [facility] hospital shield operator . Please contact study team before resolving/deleting from patients problem list. Study phone number: [phone]. Diagnosis changed due to Research Module. Go [...] as of this encounter (statuses as of 08/26/2020) Immunizations Name Administration Dates Next Due PPD [...] Progress Notes * Katarzyna Soliman PA-C - 08/26/2020 1:37 PM EDT GENERAL HISTORY & PHYSICAL EXAMINATION - Anesthesia and Pain Service Name: Laurel Rios Location: [facility], [facility] REFERRING PHYSICIAN: MARY Gorman Thank you for referring Laurel Rios. CHIEF COMPLAINT: Low back and R LE pain HPI: Laurel Rios is a 80 year old female who complains of low back pain that radiates to R buttock, posterior thigh and calf. Low back pain started a few years ago. Significantly worse in past month without injury. Presented to ED x's 2 in past few weeks. Hx of injections via Dr. Ziegler and Dr. Landaverde - most recent procedure R SI joint injection, June of this year, although notes LE pain has significantly worsened since this procedure. She is now wearing SI belt. Mild relief with conservative care including medication management, chiropractic manipulation, daily home stretching program. Symptoms occur daily. Describes pain as ". Pain is constant, rated 10/10. Aggravating factors include: walking, standing. Unable to provide alleviating factors. Admits associated numbness R calf and foot. + weakness B LE, using walker to ambulate which she just started using in the past few weeks. Denies bowel or bladder incontinence. Denies hx spine surgery or injections. Pain is affecting ADL. + prednisone allergy causing severe depression. Although denies previous injections causing this. Significant past medical hx includes: HTN, CKD stage III, depression, IBS, PTSD, prediabetes. Current medications used for pain: tylenol, cymbalta, gabapentin, zanaflex . Past medications used for pain: oxycodone. Anticoagulation therapy: no Diabetic: no PAST MEDICAL HISTORY: Past Medical History: Diagnosis Date • Benign hypertension with CKD (chronic kidney disease) stage III 01/18/2017 • Cervicalgia due to muscle spasms [...] point injections • Vitamin D deficiency Past Medical History - Pertinent Findings: (-) clotting disorder PAST SURGICAL HISTORY: Past Surgical History: Procedure Laterality Date • BIOPSY OF BREAST, OPEN 1991 Breast Biopsy, Benign Disease • COLONOSCOPY, DIAGNOSTIC (RECTUM) 12/29/2016 adenomatous polyp, repeat 5 yrs/COLONOSCOPY FLEXIBLE PROXIMAL DIAGNOSTIC performed by Ruslan Kelly MD at [facility] • GENITAL SURGERY PROCEDURE NEC 1982 at age 42, 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 Hu • TOTAL HYSTERECTOMY 1989 still has one ovary • TREAT ANKLE FRACTURE W/MANIPULATION Left surgical repair ankle fracture FAMILY HISTORY: Family History Problem Relation Age of Onset [...] hystoplamosis of the optic nerve, OU Family History - Pertinent Findings: (-) clotting disorder SOCIAL HISTORY: Social History Tobacco Use • Smoking status: Former Smoker Quit date: 03/19/1988 Years since quittin.4 • Smokeless tobacco: Never Used • Tobacco comment: quit 1987 Substance Use Topics • Alcohol use: No • Drug use: No CURRENT MEDICATIONS: Note that discontinued and completed medications (per the MAR) continue to display for 24 hours. Ordered medications to be given in the future also display. Current Outpatient Medications Medication Sig Dispense Refill dilTIAZem HCl (CARDIZEM OINTMENT) 2% SC GEL Administer into the rectum 3 times a day. 30 g 3 Hydrocortisone (Perianal) 2.5 % External Cream (Anusol-HC) Administer into the rectum 2 times a day. 30 g 3 Witch Sheryl-Glycerin External Pad [...] 2 Sprays into each nostril daily. 1 Inhaler5 Ascorbic Acid (VITAMIN C) 1000 MG Tablet Take 1,000 mg by mouth daily. Biotin 1 MG Capsule Cholecalciferol (VITAMIN D-3) 1000 units Capsule Take by mouth. [place] 3 1200 MG CAPS dicyclomine (BENTYL) 10 MG Capsule Take 1 Cap by mouth 4 times a day as needed for Cramping. For abdominal pain 120 Cap 5 DULoxetine (CYMBALTA) 20 MG [...] 1 tablet daily as needed for constipation ALLERGIES: Prednisone ROS: Constitutional: Negative for fatigue, fever, appetite change, unexplained weight loss. Eyes: Negative for abnormal vision, dryness. ENT: Negative for hearing loss, dizziness, sore throat. Respiratory: Negative for cough, shortness of breath, dyspnea. Musculoskeletal: Negative for neck, mid-back pain. + low back and R LE pain - see HPI Neurological: Negative for headaches, seizures. + paresthesias R LE - see HPI Psychiatric: Negative for anxiety, depression, hallucinations, suicidal thoughts. Genitourinary: Negative for dysuria, urinary frequency, hematuria. Hematologic/ Lymphatic: Negative for easy bleeding, bruising, lymphadenopathy. Gastrointestinal: Negative for abdominal pain, nausea, vomiting, constipation, diarrhea. Cardiovascular: Negative for chest pain, palpitations, ankle swelling, orthopnea. PHYSICAL EXAMINATION: Most Recent Vital Signs: There were no vitals filed for this visit. General Appearance: Patient appears to be about stated age, pleasant and cooperative with normal affect. Wearing SI joint belt. HEENT: head normocephalic, pupils equal round and reactive to light and accommodation, EOMI, hearing intact and equal bilaterally and nose clear, throat normal Heart: regular rate and rhythm, S1 normal, S2 normal, no murmurs, clicks, or gallops Lungs: Clear to auscultation without rhonchi or rales. Lumbar Spine: Normal lumbar lordatic curvature is present. Skin is intact without gross abnormalities. No masses palpable. + midline and R paravertebral tenderness. Mild tenderness R > L sacroiliac joint. No evidence of myofascial trigger points. Full active ROM with flexion and extension of thelumbar spine. Lower Extremity Strength: Hip Flexion 5/5 bilaterally. Hip Abductor 5/5 bilaterally. Hip Adductor 5/5 bilaterally. Extensor Hallicus Longus 5/5 bilaterally. Deep Tendon Reflex: Patellar: 2/4 bilaterally. Achilles: 1/4 bilaterally. Low Back Provocative Testing: DESIREE test: positive R, negative L. Straight Leg Raise Test: positive right, negative L. Lumbar Facet Loading: negative bilaterally. Sensation: Dermatomal sensation not formally tested. Grossly normal and symmetric unless otherwise specified. Gait: Intact, no sign of ataxia. Ambulates with assistance. IMAGING: L spine MRI 08/13/20 L4/5: mild to moderate central stenosis, minimal B foraminal narrowing L5/S1: grade one to two listhesis, disc bulge with moderate central stenosis and severe B foraminalnarrowing ASSESSMENT: Lumbar radicular pain, R L5 pattern PLAN: Chronic low back pain with significant increase in R LE radicular pain. Associated weakness and paresthesia despite conservative care. Neurologically intact. Symptoms are congruent with severe foraminal narrowing L5/S1, does have mild to moderate central stenosis L4/5. Discussed lumbar radicular pain and JOEY using fluoroscopy. Risks including, but not limited to, bleeding, infection, worsening pain and possible steroid side effects were reviewed. Due to severity and duration of symptoms, will schedule caudal JOEY. Examined and evaluated by Dr. Curry. Please refer to his note for further recommendations. Katarzyna Soliman PA-C 08/26/2020 I examined the patient and reviewed the lumbar MRI. I agree with the plan of care for caudal JOEY. Ryder Curry DO 08/26/2020 documented in this encounter Nursing Notes * Dominique Walker LPN - 08/26/2020 1:47 PM EDT Patient reports a flare up of low back and b/l lower ext pain Was in ER 2x in last few weeks MRI at [facility] Had inj approx 3months ago with 's office Has seen in past as well No relief with Oxycodone, tramadol Is unable to take oral steroids due to increased depression documented in this encounter Plan of Treatment Upcoming Encounters Date Type Specialty Care Team Description 09/17/2020 Hospital Encounter Surgery Ryder Curry, DO [address] [place] [address] [phone] 09/17/2020 Surgery Surgery Ryder Curry DO [address] [place] [address] [phone] INJECTION SPINE LUMBAR OR SACRAL Scheduled Orders Name Type Priority Associated Diagnoses Orde r Schedule INJECT DX/THER SUBSTANCE INTERLAMINAR LUMBAR/SACRAL W IMAGE GUIDE Procedures Routine Lumbar radicular pain Ordered: 08/26/2020 Health Maintenance Due Date Last Done Comments COVID-19 Vaccine (1) 1952 Zoster Vaccines (2 of 3) 05/15/2007 03/20/2007 CKD GFR USE SMARTSET 71047 03/02/201808/31, 07/29/2017, 11/14/2016, Additional history exists CKD HGB USE SMARTSET 23288 07/29/201807/29, 03/31/2016, 08/05/2015, Additional history exists CKD PHOS USE SMARTSET 10632 07/29/201807/18, 03/31/2016, 08/06/2014 *DEPRESSION SCREENING,ANNUAL FOR PTS [...] Thoracic or lumbosacral neuritis or radiculitis, unspecified Lumbar radiculopathy Thoracic or lumbosacral neuritis or radiculitis, unspecified documented in this encounter Advance Directives Documents on File Type Date Recorded 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
--- OUTSIDE RECORDS SUMMARY | 2022-12-12 21:48 | External Medical Summary | Summary of Care ---
Author Name Unknown Organization [place] [address] Care Team Providers Care Managing Editor Name Role Phone Chelsea Berumen Primary Care Provid er Reason for Visit * Reason Onset Date Comments Appointment 12/11/2020 Encounter Details Date Type Department Care Team Description 12/11/2020 Telephone Interventional Pain Center, [facility] [address] [place] [address] [address], [address] [place] [address] [phone] Appointment Allergies Active Allergy Reactions Severity Noted Date Comments Prednisone Other (Please comment) 12/22/2016 Severe depression documented as of this encounter (statuses as of 12/11/2020) Medications Medication Sig Dispensed Refills Start Date [...] units Capsule Take by mouth. 0 Active [place] 3 1200 MG CAPS 0 Active Biotin [...] as of this encounter (statuses as of 12/11/2020) Active Problems Problem Noted Date Encounter for examination fo r normal comparison and control in clinical research program 08/28/2017 Overview: DO NOT DELETE - [facility] DETECT Study: Project # [id number], Beer Merchant: Nando Villeda, MS, MPH. SUMMARY: Goal: Establish [...] contact study staff at ; after hours Beer Merchant via the [facility] hospital washer operator . - Please contact study team before resolving/deleting from patients problem list. Study phone number: [phone]. Diagnosis changed due to Research Module. Go [...] as of this encounter (statuses as of 12/11/2020) Resolved Problems Problem Noted Date Resolved Date Encounter for examination fo r normal comparison and control in clinical research program 08/28/2017 10/21/2019 Overview: DO NOT DELETE [facility] DETECT Study: Project # [id number], Beer Merchant: Jace Arrington, PhD. SUMMARY: Goal: Establish test [...] contact study staff at ; after hours Beer Merchant via the [facility] washer operator . Please contact study team before resolving/deleting from patients problem list. Study phone number: [phone]. Diagnosis changed due to Research Module. Go [...] as of this encounter (statuses as of 12/11/2020) Immunizations Name Administration Dates Next Due PPD [...] Telephone Encounter - Dominique Walker LPN - 12/11/2020 3:44 PM EDT Patient reports low back and b/l lower ext pain-would like another injection Is currently doing PT Saw -he recommended she just continue PT documented in this encounter Plan of Treatment Scheduled Orders Name Type Priority Associated Diagnoses Orde r Schedule INJECT DX/THER SUBSTANCE INTERLAMINAR LUMBAR/SACRAL W IMAGE GUIDE Procedures Routine Lumbar radicular pain Ordered: 12/11/2020 Health Maintenance Due Date Last Done Comments COVID-19 Vaccine (1) 1952 Zoster Vaccines (2 of 3) 05/15/2007 03/20/2007 CKD GFR USE SMARTSET 83062 03/02/201808/31, 07/29/2017, 11/14/2016, Additional history exists CKD HGB USE SMARTSET 83442 07/29/201807/29, 03/31/2016, 08/05/2015, Additional history exists CKD PHOS USE SMARTSET 96701 07/29/201807/18, 03/31/2016, 08/06/2014 *DEPRESSION SCREENING,ANNUAL FOR PTS [...] Documents on File Type Date 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
--- OUTSIDE RECORDS SUMMARY | 2022-12-12 21:48 | External Medical Summary | Summary of Care ---
Author Name Unknown Organization [place] [address] Care Team Providers Care Agriculture Intern Name Role Phone Chelsea Berumen Primary Care Provid er Encounter Details Date Type Department Care Team Description 08/13/2020 Scan Encounter Interventional Pain Center, [facility] [address] [place] [address] Cousins, Ryder Machado, [address] [facility] [place] [address] [phone] <No scans attached> Allergies Active Allergy Reactions Severity Noted Date Comments Prednisone Other (Please comment) 12/22/2016 Severe depression documented as of this encounter (statuses as of 09/01/2020) Medications Medication Sig Dispensed Refills Start Date [...] units Capsule Take by mouth. 0 Active [place] 3 1200 MG CAPS 0 Active Biotin [...] 0 Active dilTIAZem HCl (CARDIZEM OINTMENT) 2% WI GEL Administer into the rectum 3 times a day. 30 g 3 01/15/2020 Active Additional Information Patient not taking. Reported on 08/26/2020 Hydrocortisone (Perianal) 2.5 % External Cream (Anusol-HC) Administer into the rectum 2 times a day. 30 g 3 01/15/2020 Active documented as of this encounter (statuses as of 09/01/2020) Active Problems Problem Noted Date Encounter for examination fo r normal comparison and control in clinical research program 08/28/2017 Overview: DO NOT DELETE - [facility] DETECT Study: Project # [id number], Sales Representative Trainee: Nando Villeda, MS, MPH. SUMMARY: Goal: Establish [...] staff at ; after hours Sales Representative Trainee via the [facility] hospital needle felt making machine operator . - Please contact study team before resolving/deleting from patients problem list. Study phone number: [phone]. Diagnosis changed due to Research Module. Go [...] as of this encounter (statuses as of 09/01/2020) Resolved Problems Problem Noted Date Resolved Date Encounter for examination fo r normal comparison and control in clinical research program 08/28/2017 10/21/2019 Overview: DO NOT DELETE [facility] DETECT Study: Project # [id number], Sales Representative Trainee: Jace Arrington, PhD. SUMMARY: Goal: Establish test [...] staff at ; after hours Sales Representative Trainee via the [facility] hospital needle felt making machine operator . Please contact study team before resolving/deleting from patients problem list. Study phone number: [phone]. Diagnosis changed due to Research Module. Go [...] as of this encounter (statuses as of 09/01/2020) Immunizations Name Administration Dates Next Due PPD [...] Team Description 09/17/2020 Hospital Encounter Surgery Ryder Curry DO [address] [place] [address] [phone] 09/17/2020 Surgery Surgery Ryder Curry DO [address] [place] [address] [phone] INJECTION SPINE LUMBAR OR SACRAL Health Maintenance Due Date Last Done Comments COVID-19 Vaccine (1) 1952 Zoster Vaccines (2 of 3) 05/15/2007 03/20/2007 CKD GFR USE SMARTSET 64726 03/02/201808/31, 07/29/2017, 11/14/2016, Additional history exists CKD HGB USE SMARTSET 81008 07/29/201807/29, 03/31/2016, 08/05/2015, Additional history exists CKD PHOS USE SMARTSET 87769 07/29/201807/18, 03/31/2016, 08/06/2014 *DEPRESSION SCREENING,ANNUAL FOR PTS [...] Documents on File Type Date Recorded Patient Education Adviser Expl anation Advance Directives and Living Will [...]
--- OUTSIDE RECORDS SUMMARY | 2022-12-12 21:48 | External Medical Summary | Continuity of Care Document ---
Author Name Unknown Organization [address] Address [address] [place] [id number] Care Team Providers Care Plumber Pipe Fitting Name Role Phone Deja Oseguera Primary Care Physician [phone] Encounter [facility] [id number] Date(s): 10/12/20 - 10/12/[address] [address] [place] [phone] Encounter Diagnosis Chronic SI joint pain(Discharge Diagnosis) - 10/12/20 Sacroiliac joint pain(Discharge Diagnosis) - 10/12/20 Back pain(Discharge Diagnosis) - 10/12/20 Discharge Disposition: Home or Self Care Attending Physician: MARY Oseguera Jill Nicole Allergies, Adverse Reactions, Alerts Substance Reaction Severity Status predniSONE severe depression Active Assessment and Plan Extracted from: Title:Office Visit Note Author:MARY Oseguera Ji ll Nicole Date:10/12/20 1. Sacroiliac joint pain Some improvement after injection per patient but still present She was provided the option of seeing Dr. Rios with [facility] or Dr. Malone when he is here in [place] for consultation as was recommended by [facility] ortho and she would like to see Dr. Malone if he has availability. Referral placed. imaging already done - reviewed XR/MRI Patient advised to call for any questions, concerns, persistent, or worsening symptoms or to call 911 or go to the ED for any emergencies. Denies any questions or concerns at this time. 2. Back pain See above Immunizations Given and Recorded Vaccine Date Status Refusal Reason influenza virus vaccine, inactivated 1 12/16/19 Re corded influenza virus vaccine, inactivated 12/21/18 Sanjeev rded pneumococcal 23-valent vaccine 2 10/13/16 Recorded pneumococcal 23-valent vaccine 3 08/16/02 Recorded pneumococcal 13-valent vaccine 4 07/08/15 Recorded tetanus/diphtheria/pertuss, acel (Tdap) 5 12/20/11 Recorded zoster vaccine live 6 03/20/07 Recorded 1Result Comment: [facility] 2Result Comment: 2019-11-27: Historical information-source unspecified 3Result Comment: 2019-11-27: Historical information-source unspecified 4Result Comment: 2019-11-27: Historical information-source unspecified 5Result Comment: 2019-11-27: Historical information-source unspecified 6Result Comment: 2019-11-27: Historical information-source unspecified Medications Anusol-HC 2.5% rectal cream Start: 11/26/19 13:21:00 EDT, 1 appl, SD, tid, Disp# 30 g, Refills: 1, to affected area, Pharmacy: [facility]/pharmacy #[id number], 160, cm, 08/26/19 13:50:00 [...] on package labeling for 6 days., Pharmacy: [id number] Start Date: 08/05/20 Stop Date: 08/11/20 Status: Ordered MiraLax Start: 10/19/15 13:31:00 Start Date: 10/19/15 Status: Ordered Ocuvite Extra oral tablet Start: 08/10/16 13:14:00, 1 tab, PO, Daily Start Date: 08/10/16 Status: Ordered Walnut-3 oral capsule Start: 01/16/18 13:54:00 EDT, 1,200 mg =, Daily Start Date: 01/16/18 Status: Ordered oxyCODONE 5 mg oral tablet Start: 08/19/20 10:26:00 EDT, 1 tab, PO, q6h, Disp# 10 tab, Refills: 0, Note to Pharmacy: continuedtherapy, PRN: as needed for pain, Pharmacy: [id number] Start Date: 08/19/20 Status: Ordered Paxil Start: [...] 1, PRN: as needed for pain, Pharmacy: [id number] Start Date: 08/11/20 Status: Ordered tretinoin 0.05% [...] Refills: 3, TAKE 1 TABLET DAILY, Pharmacy: [facility] Start Date: 09/28/20 Status: Ordered Vitamin D3 5000 intl units oral capsule Start: 11/07/17 14:30:00 EDT Start Date: 11/07/17 Status: Ordered Zanaflex 4 mg oral tablet Start: 11/09/15 15:42:00, 1 tab, PO, q8h, Disp# 90 tab, Refills: 2, Begin with a half tablet and advance to a full tablet as tolerated, Pharmacy: [id number] Start Date: 11/09/15 Stop Date: 02/07/16 Status: Ordered Mental Status 10/12/20 Barriers to Learning one year None evide nt Mandatory Health Literacy Documentation Yes Health Literacy Communication Barriers N ever Primary Language Faroese Problem List Condition Effective Dates Status Health [...] myofascial pain(Confirmed) Active Neck pain(Confirmed) 2 Active 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 Right arm pain(Confirmed) Active Toe pain, left(Confirmed) Active Right hand paresthesia(Confirmed) Active Poor posture(Confirmed) Active PTSD (post-traumatic stress disorder)(Confirmed) Active Pre-op exam(Confirmed) Active Radicular pain in right arm(Confirmed) Active Sacroiliitis(Confirmed) Active Sacroiliac joint pain(Confirmed) Active Seborrheic keratoses(Confirmed) Active Right shoulder pain(Confirmed) Active Left shoulder pain(Confirmed) Active Shoulder pain, left(Confirmed) Active Cervical spinal stenosis(Confirmed) Active Right ankle sprain(Confirmed) Active 1B/L 2shoulder Diagnosis Diagnosis Type Effective Dates Health Status Clinical Service Informant Chronic SI joint pain Discharge Diagnosis 10/12/20 Non-Specified Sacroiliac joint pain Discharge Diagnosis 10/12/20 Back pain Discharge Diagnosis 10/12/20 Procedures Procedure Date Related Diagnosis Body Site [...] to oldest [Reference Range]: 1 Patient Weight 70 kg (10/12/20 1:58 PM) Heart Rate 75 bpm (10/12/20 1:58 PM) Respiratory Rate 16 br/min (10/12/20 1:58 PM) Blood Pressure 124/78mmHg (10/12/20 1:58 PM) Cuff Pulse Pressure 46 mmHg (10/12/20 1:58 PM) BP Location # 1 Left Arm, Manual (10/12/20 1:58 PM) Social History Social History Type Response Tobacco 1 Smoking Status Never smoked cigaret chung Sex Female [id number]
--- OUTSIDE RECORDS SUMMARY | 2022-12-12 21:48 | External Medical Summary | Summary of Care ---
Author Name Unknown Organization [place] [address] Care Team Providers Care Multiskill Operator Name Role Phone Chelsea Berumen Larry HERNANDEZ Primary Care Provid er Encounter Details Date Type Department Care Team Description 10/27/2020 Orders Only Outcomes Research Department [address] [place] [address] Chidi Henriquez CHRA MyCode Research Other*[id number] Allergies Active Allergy Reactions Severity Noted Date Comments Prednisone Other (Please comment) 12/22/2016 Severe depression documented as of this encounter (statuses as of 10/27/2020) Medications Medication Sig Dispensed Refills Start Date [...] units Capsule Take by mouth. 0 Active [place] 3 1200 MG CAPS 0 Active Biotin [...] 0 Active dilTIAZem HCl (CARDIZEM OINTMENT) 2% ID GEL Administer into the rectum 3 times [...] as of this encounter (statuses as of 10/27/2020) Active Problems Problem Noted Date Encounter for examination fo r normal comparison and control in clinical research program 08/28/2017 Overview: DO NOT DELETE - [facility] DETECT Study: Project # [id number], Compensator: Nando Villeda, MS, MPH. SUMMARY: Goal: Establish [...] contact study staff at ; after hours Compensator via the [facility] speedboat [place] . - Please contact study team before resolving/deleting from patients problem list. Study phone number: [phone]. Diagnosis changed due to Research Module. Go [...] as of this encounter (statuses as of 10/27/2020) Resolved Problems Problem Noted Date Resolved Date Encounter for examination fo r normal comparison and control in clinical research program 08/28/2017 10/21/2019 Overview: DO NOT DELETE [facility] DETECT Study: Project # [id number], Compensator: Jace Arrington, PhD. SUMMARY: Goal: Establish test [...] contact study staff at ; after hours Compensator via the [facility] [place] speedboat operator . Please contact study team before resolving/deleting from patients problem list. Study phone number: [phone]. Diagnosis changed due to Research Module. Go [...] as of this encounter (statuses as of 10/27/2020) Immunizations Name Administration Dates Next Due PPD [...] as of this encounter Plan of Treatment Scheduled Orders Name Type Priority Associated Diagnoses Orde r Schedule MYCODE SUBSEQUENT ADULT Lab Routine MyCode Research Other*[id number] Every 6 Months for 2 Occurrences starting 10/27/2020 until 11/16/2021 Health Maintenance Due Date Last Done Comments COVID-19 Vaccine (1) 1952 Zoster Vaccines (2 of 3) 05/15/2007 03/20/2007 CKD GFR USE SMARTSET 76067 03/02/201808/31, 07/29/2017, 11/14/2016, Additional history exists CKD HGB USE SMARTSET 15373 07/29/201807/29, 03/31/2016, 08/05/2015, Additional history exists CKD PHOS USE SMARTSET 38171 07/29/201807/18, 03/31/2016, 08/06/2014 *DEPRESSION SCREENING,ANNUAL FOR PTS [...] this encounter Visit Diagnoses Diagnosis MyCode Research Other*[id number] documented in this encounter Advance Directives Documents on File Type Date Recorded Patient Yoga Instructor Expl anation Advance Directives and Living [...]
--- OUTSIDE RECORDS SUMMARY | 2022-12-12 21:49 | External Medical Summary | Summary of Care ---
Author Name Unknown Organization [place] [address] Care Team Providers Care Assembler Caterpillar Spider Name Role Phone Chelsea Berumen Primary Care Provid er Reason for Visit * Reason Onset Date Comments Medication Question 01/16/2020 Encounter Details Date Type Department Care Team Description 01/16/2020 Telephone General Surgery, [facility] [address] [facility] [place] [address] Luis Miguel Hawk MD [address] [facility] [place] [address] [phone] Medication Question Allergies Active Allergy Reactions Severity Noted Date Comments Prednisone Other (Please comment) 12/22/2016 Severe depression documented as of this encounter (statuses as of 01/24/2020) Medications Medication Sig Dispensed Refills Start Date [...] units Capsule Take by mouth. 0 Active [place] 3 1200 MG CAPS 0 Active Biotin [...] as of this encounter (statuses as of 01/24/2020) Active Problems Problem Noted Date DETECT Research Study*[id number] Overview: DO NOT DELETE - [facility] DETECT Study: Project # [id number], Supervisor [place]: Nando Villeda, MS, MPH. SUMMARY: Goal: Establish [...] study staff at ; after hours Supervisor [place] via the [facility] [place] [place] central office operator supervisor . - Please contact study team before resolving/deleting from patients problem list. Study phone number: [phone]. Prediabetes 08/08/2017 Overview: Per Prediabetes protocol #1 [...] as of this encounter (statuses as of 01/24/2020) Resolved Problems Problem Noted Date Resolved Date DETECT Research Study*[id number] 08/28/2017 10/21/2019 Overview: DO NOT DELETE [facility] DETECT Study: Project # [id number], Supervisor [place]: Jace Arrington, PhD. SUMMARY: Goal: Establish test [...] study staff at ; after hours Supervisor [place] via the [facility] hospital central office operator supervisor . Please contact study team before resolving/deleting from patients problem list. Study phone number: [phone]. Sciatica without lumbago 03/31/2016 017 Inflammation of [...] as of this encounter (statuses as of 01/24/2020) Immunizations Name Administration Dates Next Due PPD 12/21/2017, 7,01/29/2016,02/20,02/10/2015 Pneumococcal Conjugate Vacc, 13 Valent (Prevnar) 07/08/2015 Pneumococcal Polysaccharide PPV23 (Pneumovax) 10/13/2016,08/16/2002 Seasonal Influenza, Cell Cul ture, 18 Yrs & Older 02/01/2013 Seasonal Influenza, Quadriva lent, No Preserve, 6 Mons & Above, IM 12/21/2017 Seasonal Influenza, Quadriva lent, No Preserve, IM 01/22/2016 Seasonal Influenza, Trivalen t, with Preserve, 3yr & Above, Split 12/25/2016,11/21/2014,11/19/2013,12/19,01/31/2011,01/18/2010 TDAP (age 10 and older)(Boostrix) 12/20/2011 Varicella Zoster Vaccine (Adult) 03/20/2007 documented as of this encounter Social History Tobacco Use Types Packs/Day Years Used Date Former Smoker Quit: 03/19 Smokeless Tobacco: Never Used Comments:quit 1987 Alcohol Use Drinks/Week oz/Week Comments No Sex Assigned at Date Recorded Not on file documented as of this encounter Miscellaneous Notes * Telephone Encounter - Vikki Foster CPhT - 01/16/2020 11:43 AM EDT Pt is calling regarding 2 Rxs for ointments stating they are costly, and asking if she is supposed to continue taking on regular basis, if there are refills on Rxs; advised and told prescriber had stated below: PLAN: Going to try conservative measures 1st. I asked her to use diltiazem ointment 3 times a day for thenext 4 weeks and Anusol HC cream for the next 4 weeks as well. She will return after that time frame for re-evaluation. Thank you, Vikki Foster CPhT Car Salesperson [facility] 01/16/2020, 11:48 AM documented in this encounter Plan of Treatment Upcoming Encounters Date Type Specialty Care Team Description 02/12/2020 Office Visit General Surgery Luis Miguel Hawk MD [address] [place] [address] Health Maintenance Due Date Last Done Comments Zoster Vaccines (2 of 3) 05/15/2007 03/20/2007 CKD GFR USE SMARTSET 66834 03/02/201808/31, 07/29/2017, 11/14/2016, Additional history exists CKD HGB USE SMARTSET 48838 07/29/201807/29, 03/31/2016, 08/05/2015, Additional history exists CKD PHOS USE SMARTSET 32773 07/29/201807/18, 03/31/2016, 08/06/2014 *DEPRESSION SCREENING,ANNUAL FOR PTS 12 AND OVER 08/14/2018 Prediabetes-Yearly Hemoglobin A1c 08/24/2018 08/24/2017, 08/24/2017 *BASIC METABOLIC PANEL (BMP) FOR HTN YEARLY 09/03/2018 Dexa Scan 03/15/2019 03/15/2012 Influenza Vaccine (FLU shot) (#1) 2019 12/21/2018, 12/21/2017, 12/25/2016, Additional history exists DIABETES SCREEN EVERY 3 YRS-AGE 45 AND [...] Documents on File Type Date Recorded Patient Retail Special Event Associate Expl anation Advance Directives and Living Will [...]
--- OUTSIDE RECORDS SUMMARY | 2022-12-12 21:49 | External Medical Summary | Summary of Care ---
Author Name Unknown Organization [place] [address] Care Team Providers Care Elevator Tender Name Role Phone Chelsea Berumen Primary Care Provid er Reason for Visit * Reason Comments Follow Up anal fissure Encounter Details Date Type Department Care Team Description 02/12/2020 Office Visit General Surgery, [facility] [address] [place] [address] Luis Miguel Hawk MD [address] [facility] [place] [id number] Anal fissure* Allergies Active Allergy Reactions Severity Noted Date Comments Prednisone Other (Please comment) 12/22/2016 Severe depression documented as of this encounter (statuses as of 02/12/2020) Medications Medication Sig Dispensed Refills Start Date [...] units Capsule Take by mouth. 0 Active [place] 3 1200 MG CAPS 0 Active Biotin [...] as of this encounter (statuses as of 02/12/2020) Active Problems Problem Noted Date DETECT Research Study*[id number] Overview: DO NOT DELETE [facility] DETECT Study: Project # [id number], Delivery Room Supervisor: Nando Villeda, MS, MPH. SUMMARY: Goal: Establish [...] contact study staff at ; after hours Delivery Room Supervisor via the [facility] log haul operator . - Please contact study team before resolving/deleting from patients problem list. Study phone number: [phone]. Prediabetes 08/08/2017 Overview: Per Prediabetes protocol #1 [...] as of this encounter (statuses as of 02/12/2020) Resolved Problems Problem Noted Date Resolved Date DETECT Research Study*[id number] 08/28/2017 10/21/2019 Overview: DO NOT DELETE [facility] DETECT Study: Project # [id number], Delivery Room Supervisor: Jace Arrington, PhD. SUMMARY: Goal: Establish test [...] contact study staff at ; after hours Delivery Room Supervisor via the [facility] hospital log haul operator . Please contact study team before resolving/deleting from patients problem list. Study phone number: [phone]. Sciatica without lumbago 03/31/2016 017 Inflammation of [...] as of this encounter (statuses as of 02/12/2020) Immunizations Name Administration Dates Next Due PPD [...] - Inhaled Oxygen Concentration - - Weight 73.8 kg (162 lb 9.6 oz) 02/12/2020 2:00 P M EST Height 162.6 cm (5' 4") 02/12/2020 2:00 PM EST Body Mass Index 27.91 02/12/2020 2:00 PM EST documented in this encounter Progress Notes * Luis Miguel Hawk MD - 02/12/2020 2:47 PM EST SUBJECTIVE: Laurel Rios is a 80 year old female. Chief Complaint Patient presents with • Follow Up anal fissure HPI: Laurel Rios is being seen 4 weeks after her last visit for evaluation of therapy for heranal fissure. I saw her on 01/02/20 any HPI from that visit stated the following: “HPI: Laurel Rios is referred by MARY Sanches and MARY Haywood for evaluation of hemorrhoids perianal pain and occasional hematochezia. 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 She was placed on a special diet about 3 yearsago and it worked very nicely until about 6 months ago when she began to develop constipation again. She then developed pain in the perianal region that occurs with bowel movements and lasts afterwards. This occurs only with bowel movements. There is occasional blood that occurs about once per weekand it is only on the paper. She has noticed protruding which she thought was hemorrhoids. They arealso painful. She had a colonoscopy about 3 years ago. There is no abdominal pain, nausea or vomiting." She is feeling much better. She has occasional twinges of pain with a bowel movement. There has been no bleeding. 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 Hu • TOTAL HYSTERECTOMY 1989 still has one ovary • TREAT ANKLE FRACTURE W/MANIPULATION Left surgical repair ankle fracture Current Outpatient Medications Medication Sig Dispense Refill • dilTIAZem HCl (CARDIZEM OINTMENT) 2% DE GEL Administer into the rectum 3 times a day. 30 g 3 • Hydrocortisone (Perianal) 2.5 % External Cream (Anusol-HC) Administer into the rectum 2 times aday. 30 g 3 • Witch Sheryl-Glycerin External Pad (A.E.R. Witch Sheryl) Apply topically to affected area as needed. • Cyanocobalamin (VITAMIN B 12) 500 MCG TABS Take by mouth. • glycopyrrolate (ROBINUL) 1 MG Tablet Take 1 mg by mouth 3 times a day. • valsartan (DIOVAN) 80 MG Tablet Take 1 Tab by mouth daily. 90 Tab 1 • acetaminophen (TYLENOL EXTRA STRENGTH) 500 MG Tablet Take 500 mg by mouth every 6 hours as needed for Pain. • MEDICAL INSTRUCTIONS Use as directed. Bi-Est estrogen cream --apply cream to arm every other day • fluticasone (FLONASE) 50 MCG/ACT nasal spray Administer 2 Sprays into each nostril daily. 1 Inhaler 5 • Ascorbic Acid (VITAMIN C) 1000 MG Tablet Take 1,000 mg by mouth daily. • Biotin 1 MG Capsule • Cholecalciferol (VITAMIN D-3) 1000 units Capsule Take by mouth. • [place] 3 1200 MG CAPS • dicyclomine (BENTYL) 10 MG Capsule Take 1 Cap by mouth 4 times a day as needed for Cramping. For abdominal pain 120 Cap 5 • DULoxetine (CYMBALTA) 20 MG CPEP 30 mg. • gabapentin (NEURONTIN) 100 MG Capsule 200 mg. Take 3 times a day 1 Cap 0 • tiZANidine (ZANAFLEX) 4 MG Tablet Take 0.5 Tabs by mouth. 1 Tab 0 • polyethylene glycol 3350 (MIRALAX) 255 gram powder Take 17 g by mouth 2 times a day. Dissolve one heaping tablespoon in 8 ounces of water or juice. 1 Bottle 2 • cyclosporine (RESTASIS) 0.05 % ophthalmic emulsion Instill 1 Drop into both eyes every 12 hours. affected eye(s) 32 Vial 11 • diazepam (VALIUM) 5 MG Tablet TAKE 1/2 TO ONE TABLET UP TO TWICE A DAY NEEDED FOR MUSCLE SPASM 180 Tab 1 • PARoxetine (PAXIL) 30 MG Tablet Take 1 Tab by mouth daily. 90 Tab 3 • PROGESTERONE 1000 MG/60GM EX CREA apply once daily • RED YEAST RICE 600 MG PO CAPS 1 daily • STOOL SOFTENER 100 MG PO TABS 1 tablet daily as needed for constipation Review of patient's allergies indicates: Allergen Reactions • Prednisone Other (Please comment) Severe depression Social History: Social History Tobacco Use • Smoking status: Former Smoker Quit date: 03/19/1988 Years since quittin.9 • Smokeless tobacco: Never Used • Tobacco comment: quit 1987 Substance Use Topics • Alcohol use: No Vaping/E-Cigarette Use Vaping/E-Cigarette Substances Vaping/E-Cigarette Devices OBJECTIVE: PHYSICAL EXAM: Ht (!) 1.626 m (5' 4") | Wt 73.8 kg (162 lb 9.6 oz) | BMI 27.91 kg/m² | BSA 1.83 m² General: alert and no distress Rectal: The fissure is almost completely healed. The hemorrhoids are smaller. There was no bleeding. ASSESSMENT: K60.2 Anal fissure (primary encounter diagnosis) PLAN: She has had benefit from the diltiazem ointment. I would continue with conservative measures for using it for another month until complete healing. If she has any other issues she can return for re-evaluation. Luis Miguel Hawk MD 02/12/2020 documented in this encounter Nursing Notes * Melba Barragan LPN - 02/12/2020 2:01 PM EST Chief Complaint Patient presents with • Follow Up anal fissure Last Office/Telemedicine Visit: 01/15/2020 Notes improvement with ointment. documented in this encounter Plan of Treatment Health Maintenance Due Date Last Done Comments Zoster Vaccines (2 of 3) 05/15/2007 03/20/2007 CKD GFR USE SMARTSET 18572 03/02/201808/31, 07/29/2017, 11/14/2016, Additional history exists CKD HGB USE SMARTSET 74536 07/29/201807/29, 03/31/2016, 08/05/2015, Additional history exists CKD PHOS USE SMARTSET 24007 07/29/201807/18, 03/31/2016, 08/06/2014 *DEPRESSION SCREENING,ANNUAL FOR PTS [...] as of this encounter Visit Diagnoses Diagnosis Anal fissure- Primary documented in this encounter Advance Directives Documents on File Type Date Recorded Patient Emergency Medicine Specialist Expl anation Advance Directives and Living Will [...]
--- OUTSIDE RECORDS SUMMARY | 2022-12-12 21:49 | External Medical Summary | Continuity of Care Document ---
Author Name Unknown Organization [facility] [address] [place], [place] [address] Address [facility] [place] [address] Care Team Providers Care Personnel Counselor Name Role Phone Chelsea Berumen Primary Care Physician [phone] [id number] Date(s): 08/05/20 - 08/05/20 [facility] 1849 [facility] 112D [facility] Medicine [address] [phone] Encounter Diagnosis Low back pain(Discharge Diagnosis) - 08/05/20 Right hip pain(Discharge Diagnosis) - 08/05/20 Sacro-iliac pain(Discharge Diagnosis) - 08/05/20 Discharge Disposition: Home or Self Care Attending Physician: BETTY Mccracken, Sylvia Macias Allergies, Adverse Reactions, Alerts Substance Reaction Severity [...] live 6 03/20/07 Recorded 1Result Comment: [facility] 2Result Comment: 2019-11-27: Historical information-source unspecified 3Result Comment: 2019-11-27: Historical information-source unspecified 4Result Comment: 2019-11-27: Historical information-source unspecified 5Result Comment: 2019-11-27: Historical information-source unspecified 6Result Comment: 2019-11-27: Historical information-source unspecified Medications Anusol-HC 2.5% rectal cream Start: 11/26/19 13:21:00 EDT, 1 appl, [place], tid, Disp# 30 g, Refills: 1, to affected area, Pharmacy: [facility]/pharmacy #[id number], 160, cm, 08/26/19 13:50:00 EDT, Height Start [...] on package labeling for 6 days., Pharmacy: [facility] [id number] Start Date: 08/05/20 Stop Date: 08/11/20 Status: Ordered MiraLax Start: 10/19/15 13:31:00 Start Date: 10/19/15 Status: Ordered Ocuvite Extra oral tablet Start: 08/10/16 13:14:00, 1 tab, PO, Daily Start Date: 08/10/16 Status: Ordered [place]-3 oral capsule Start: 01/16/18 13:54:00 EDT, 1,200 mg =, Daily Start Date: 01/16/18 Status: Ordered Paxil Start: 04/01/19 13:51:00 EST, [...] eyes, bid Start Date: 10/19/15 Status: Ordered tretinoin 0.05% topical cream Start: 08/10/16 13:40:00, 1 appl, topical, qhs, Disp# 45 g, Refills: 1, To involved face nightly Start Date: 08/10/16 Status: Ordered unknown medication Start: 04/18/18 13:40:00 EST, Note to Pharmacy: [facility] Start Date: 04/18/18 Status: Ordered valsartan 80 mg oral tablet See Instructions, Disp# 90 tab, Refills: 3, TAKE 1 TABLET DAILY, Pharmacy: [facility], 160, cm, 08/26/19 13:50:00 EDT, Height Start Date: 10/14/19 Status: Ordered Vitamin D3 5000 intl units oral capsule Start: 11/07/17 14:30:00 EDT Start Date: 11/07/17 Status: Ordered Zanaflex 4 mg oral tablet Start: 11/09/15 15:42:00, 1 tab, PO, q8h, Disp# 90 tab, Refills: 2, Begin with a half tablet and advance to a full tablet as tolerated, Pharmacy: [facility] [id number] Start Date: 11/09/15 Stop Date: 02/07/16 Status: Ordered Mental Status 08/05/20 Barriers to Learning one year None evide [...] Dates Health Status Cl inical Service Informant Sacro-iliac pain Discharge Diagnosis 08/05/20 Non-Specified Right hip pain Discharge Diagnosis 08/05/20 Non-Specified Low back pain Discharge Diagnosis 08/05/20 Non-Specified Procedures Procedure Date Related Diagnosis Body Site Status Mammogram 1 12/23/19 Completed Mammogram 2 12/19/18 Completed Bone density scan 3 8/6/19 Compl eted MRI 4 05/30/[address] of cervical spine 5 04/24/18 Co mpleted Colonoscopy 6 12/29/16 Completed ankle bimalleolar fracture ORIF 01/08/09 Completed Biopsy of breast 1991 Comple félix Cholecystectomy 1990 Completed hysterectomy 1986 Completed tonsillectomy 1946 Completed Cataract Completed 1ACR BI RADS CAT 0. Need addtl imaging. 2There is no mammographic evidence of malignancy. A 1 year screening mammogram is recommended. 3T-score: -1.9 41. Severe multilevel neural foraminal stenosis, as detailed above, predominantly due to facet arthrosis and uncovertebral hypertrophy 2. Mid multilevel central canal stenosis due to disc bulges with disc osteophyte complexes. Normal cervical cord signal and caliber. 5no acute fracture or subluxation multilevel discogenic changes and facet arthrosis as above 6Adenomatous polyp - repeat 5 years. 7benign Social History Social History Type Response Tobacco 1 Smoking Status Never smoked cigaret chung Sex Female 1quit 1987
--- OUTSIDE RECORDS SUMMARY | 2022-12-12 21:49 | External Medical Summary | Continuity of Care Document ---
Author Name Unknown Organization [facility] [address] [place], [place] [address] Address [address] [place] [id number] Care Team Providers Care Plastic Tubing Insulation Supervisor Name Role Phone Chelsea Berumen Primary Care Physician [phone] [facility] [id number] Date(s): 05/11/20 - 05/11/20 [facility] 1849 [facility] 112Q [facility] Medicine [address] [place] [phone] Encounter Diagnosis Sacroiliac joint pain(Discharge Diagnosis) - 05/11/20 Discharge Disposition: Home or Self Care Attending [...] live 6 03/20/07 Recorded 1Result Comment: [facility] 2Result Comment: 2019-11-27: Historical information-source unspecified 3Result Comment: 2019-11-27: Historical information-source unspecified 4Result Comment: 2019-11-27: Historical information-source unspecified 5Result Comment: 2019-11-27: Historical information-source unspecified 6Result Comment: 2019-11-27: Historical information-source unspecified Medications Anusol-HC 2.5% rectal cream Start: 11/26/19 13:21:00 EDT, 1 appl, [place], tid, Disp# 30 g, Refills: 1, to affected area, Pharmacy: [facility]/pharmacy #[id number], 160, cm, 08/26/19 13:50:00 EDT, Height Start Date: 11/26/19 Status: Ordered ascorbic acid Start: 01/16/18 13:53:00 EDT, 1,000 mg =, Daily Start Date: 01/16/18 Status: Ordered aspirin 81 mg oral tablet Start: 08/17/12 10:27:00, 1 tab, PO, Daily Start Date: 08/17/12 Status: Ordered biotin Start: 01/16/18 13:54:00 EDT, [...] 10/19/15 13:31:00 Start Date: 10/19/15 Status: Ordered Mobic 7.5 mg oral tablet Start: 05/13/20 8:50:00 EST, 1 tab, PO, Daily, Disp# 30 tab, Refills: 1, with food, Pharmacy: [facility]/pharmacy #[id number] Start Date: 05/13/20 Status: Ordered Ocuvite Extra oral tablet Start: 08/10/16 13:14:00, 1 tab, PO, Daily Start Date: 08/10/16 Status: Ordered Jerome-3 oral capsule Start: 01/16/18 13:54:00 EDT, 1,200 [...] Refills: 3, TAKE 1 TABLET DAILY, Pharmacy: [facility], 160, cm, 08/26/19 13:50:00 EDT, Height Start Date: 10/14/19 Status: Ordered Vitamin D3 5000 intl units oral capsule Start: 11/07/17 14:30:00 EDT Start Date: 11/07/17 Status: Ordered Zanaflex 4 mg oral tablet Start: 11/09/15 15:42:00, 1 tab, PO, q8h, Disp# 90 tab, Refills: 2, Begin with a half tablet and advance to a full tablet as tolerated, Pharmacy: [facility] [id number] Start Date: 11/09/15 Stop Date: 02/07/16 Status: Ordered Mental Status 05/11/20 Barriers to Learning one year None evide [...] of phalanx of right ring finger(Confirmed) Active Heart(Confirmed) Active Hip pain, right(Confirmed) Active S/P carpal [...] Service Informant Sacroiliac joint pain Discharge Diagnosis 05/11/20 Procedures Procedure Date Related Diagnosis Body Site Status Mammogram 1 12/23/19 Completed Mammogram 2 12/19/18 Completed Bone density scan 3 10/23/18 Compl eted MRI 4 05/30/[address] of cervical spine 5 04/24/18 Co mpleted Colonoscopy 6 12/29/16 Completed ankle bimalleolar fracture ORIF 01/08/09 Completed Biopsy of breast 7 1991 Comple félix Cholecystectomy 1990 Completed hysterectomy 1986 Completed tonsillectomy 194 Completed Cataract Completed 1ACR BI RADS CAT [...]
--- OUTSIDE RECORDS SUMMARY | 2022-12-12 21:49 | External Medical Summary | Summary of Care ---
Author Name Unknown Organization [place] [address] Care Team Providers Care Self Contained Behavior Unit Teacher Name Role Phone Chelsea Berumen Primary Care Provid er Reason for Visit * Reason Comments NEW PATIENT hemorrhoids * Evaluate & Treat - Unlimited Visits (Within 30 days (routine)) Status Reason Specialty Diagnoses / Procedures Referred By Contact Referred To Contact Pending Review Specialty Services Required General Surgery Diagnoses Bleeding hemorrhoids Dejah Santos CRNP [address] [place] [address] Encounter Details Date Type Department Care Team Description 01/15/2020 Office Visit General Surgery, [facility] [address] [place] [address] Luis Miguel Hawk MD [address] [place], [place] [id number] Anal fissure*; Internal hemorrhoids Allergies Active Allergy Reactions Severity Noted Date Comments Prednisone Other (Please comment) 12/22/2016 Severe depression documented as of this encounter (statuses as of 01/15/2020) Medications Medication Sig Dispensed Refills Start Date [...] units Capsule Take by mouth. 0 Active [place] 3 1200 MG CAPS 0 Active Biotin [...] day. 0 Active Witch Sheryl-Glycerin External Pad (A.E.RValerie Saucedo) Apply topically to affected area as needed. 0 Active dilTIAZem HCl (CARDIZEM OINTMENT) 2% TN GEL Administer into the rectum 3 times a day. 30 g 3 01/15/2020 Active Hydrocortisone (Perianal) 2.5 % External Cream (Anusol-HC) Administer into the rectum 2 times a day. 30 g 3 01/15/2020 Active documented as of this encounter (statuses as of 01/15/2020) Active Problems Problem Noted Date DETECT Research Study*[id number] Overview: DO NOT DELETE [facility] DETECT Study: Project # [id number], Meat Trimmer: Nando Villeda, MS, MPH. SUMMARY: Goal: Establish [...] contact study staff at ; after hours Meat Trimmer via the [facility] tandem mill operator . - Please contact study team before resolving/deleting from patients problem list. Study phone number: [phone]. Prediabetes 08/08/2017 Overview: Per Prediabetes protocol #1 [...] as of this encounter (statuses as of 01/15/2020) Resolved Problems Problem Noted Date Resolved Date DETECT Research Study*[id number] 08/28/2017 10/21/2019 Overview: DO NOT DELETE [facility] DETECT Study: Project # [id number], Meat Trimmer: Jace Arrington, PhD. SUMMARY: Goal: Establish test [...] contact study staff at ; after hours Meat Trimmer via the [facility] hospital tandem mill operator . Please contact study team before resolving/deleting from patients problem list. Study phone number: [phone]. Sciatica without lumbago 03/31/2016 017 Inflammation of [...] as of this encounter (statuses as of 01/15/2020) Immunizations Name Administration Dates Next Due PPD [...] - Inhaled Oxygen Concentration - - Weight 71.7 kg (158 lb) 01/15/2020 11:32 AM EDT Height 162.6 cm (5' 4") 01/15/2020 11:32 AM EDT Body Mass Index 27.12 01/15/2020 11:32 AM EDT documented in this encounter Progress Notes * Luis Miguel Hawk MD - 01/15/2020 12:52 PM EDT SUBJECTIVE: Laurel Rios is a 80 year old female. Chief Complaint Patient presents with • NEW PATIENT hemorrhoids HPI: Laurel Rios is referred by MARY Sanches and MARY Haywood forevaluation of hemorrhoids perianal pain and occasional hematochezia. 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 She was placed on a special diet about 3 years ago and it worked very nicely until about 6 months ago when she began to develop constipation again. She then developed pain in the perianal region that occurs with bowel movements and lasts afterwards.This occurs only with bowel movements. There is occasional blood that occurs about once per week and it is only on the paper. She has noticed protruding which she thought was hemorrhoids. They are also painful. She had a colonoscopy about 3 years ago. There is no abdominal pain, nausea or vomiting. 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 Hu • TOTAL HYSTERECTOMY 1989 still has one ovary • TREAT ANKLE FRACTURE W/MANIPULATION Left surgical repair ankle fracture Current Outpatient Medications Medication Sig Dispense Refill • dilTIAZem HCl (CARDIZEM OINTMENT) 2% TN GEL Administer into the rectum 3 times a day. 30 g 3 • Hydrocortisone (Perianal) 2.5 % External Cream (Anusol-HC) Administer into the rectum 2 times aday. 30 g 3 • Witch Sheryl-Glycerin External Pad (A.E.R. Rebecach [...] 1000 units Capsule Take by mouth. • [place] 3 1200 MG CAPS • dicyclomine (BENTYL) [...] Former Smoker Quit date: 03/19/1988 Years since quittin.8 • Smokeless tobacco: Never Used • Tobacco comment: quit 1987 Substance Use Topics • Alcohol use: No Vaping/E-Cigarette Use Vaping/E-Cigarette Substances Vaping/E-Cigarette Devices ROS: As per HPI and all others negative OBJECTIVE: PHYSICAL EXAM: Ht (!) 1.626 m (5' 4") | Wt 71.7 kg (158 lb) | BMI 27.12 kg/m² | BSA 1.8 m² General: alert and healthy Head: Normocephalic, No masses, lesions, tenderness or abnormalities Neck: supple, no adenopathy Heart: regular rate & rhythm Lungs: chest symmetric with normal AP diameter, no chest deformities noted, no chest wall tenderness, lungs clear to auscultation Abdomen: abdomen soft, non-tender, normal bowel sounds and no masses or organomegaly Back: back symmetric, no curvature, no costovertebral angle tenderness, range of motion is normal Rectal: There is 1 skin tag in perianal region that is small. She also appears to have a fissure. This is posterior. There was a suggestion of some internal hemorrhoids with because of the fissure I did not do a digital or anoscopic exam. ASSESSMENT: K60.2 Anal fissure (primary encounter diagnosis) K64.8 Internal hemorrhoids PLAN: Going to try conservative measures 1st. I asked her to use diltiazem ointment 3 times a day for thenext 4 weeks and Anusol HC cream for the next 4 weeks as well. She will return after that time frame for re-evaluation. Luis Miguel Hawk MD 01/15/2020 documented in this encounter Nursing Notes * Melba Barragan LPN - 01/15/2020 11:33 AM EDT Chief Complaint Patient presents with • NEW PATIENT hemorrhoids Unsure if internal or external. Hx of IBS. Colonoscopy 2017. Just developed sx in the last year. documented in this encounter Plan of Treatment Upcoming Encounters Date Type Specialty Care Team Description 02/12/2020 Office Visit General Surgery Luis Miguel Hawk MD [address] [place] [address] [place]ELI [place] [address] [phone] Health Maintenance Due Date Last Done Comments Zoster Vaccines (2 of 3) 05/15/2007 03/20/2007 CKD GFR USE SMARTSET 22187 03/02/201808/31, 07/29/2017, 11/14/2016, Additional history exists CKD HGB USE SMARTSET 08511 07/29/201807/29, 03/31/2016, 08/05/2015, Additional history exists CKD PHOS USE SMARTSET 89027 07/29/201807/18, 03/31/2016, 08/06/2014 *DEPRESSION SCREENING,ANNUAL FOR PTS [...] encounter Visit Diagnoses Diagnosis Anal fissure- Primary Internal hemorrhoids Internal hemorrhoids without mention of complication documented in this encounter Advance Directives Documents on File Type Date Recorded Patient International Manager Expl anation Advance Directives and Living Will [...]
--- OUTSIDE RECORDS SUMMARY | 2022-12-12 21:49 | External Medical Summary | Continuity of Care Document ---
Author Name Unknown Organization [facility] [address] [place] [address] [address] [address] Care Team Providers Care Bootmaker Name Role Phone Chelsea Berumen Primary Care Physician [phone] [id number] Date(s): 07/15/20 - 07/15/20 [facility] [address] [facility] 207 [facility] [address] [facility], [facility] [address] [place], [place] [address]Tsklr [phone] Encounter Diagnosis Other fatigue(Final) - Post-traumatic stress disorder, unspecified(Final) - Chronic kidney disease, stage 3 unspecified(Final) - Essential (primary) hypertension(Final) - Irritable bowel syndrome without diarrhea(Final) - Hypothyroidism, unspecified(Final) - Discharge Disposition: Home or Self [...] live 6 03/20/07 Recorded 1Result Comment: [facility] 2Result Comment: 2019-11-27: Historical information-source unspecified 3Result Comment: 2019-11-27: Historical information-source unspecified 4Result Comment: 2019-11-27: Historical information-source unspecified 5Result Comment: 2019-11-27: Historical information-source unspecified 6Result Comment: 2019-11-27: Historical information-source unspecified Medications Anusol-HC 2.5% rectal cream Start: 11/26/19 13:21:00 EDT, 1 appl, [place], tid, Disp# 30 g, Refills: 1, to affected area, Pharmacy: [facility]/pharmacy #[id number], 160, cm, 08/26/19 13:50:00 EDT, [...] 30 tab, Refills: 1, with food, Pharmacy: [facility]/pharmacy #[id number] Start Date: 05/13/20 Status: Ordered Ocuvite Extra oral tablet Start: 08/10/16 13:14:00, 1 tab, PO, Daily Start Date: 08/10/16 Status: Ordered [place]-3 oral capsule Start: 01/16/18 13:54:00 EDT, 1,200 [...] TAKE 1 TABLET DAILY, Pharmacy: [facility], 160, cm, 08/26/19 13:50:00 EDT, Height Start Date: 10/14/19 Status: Ordered Vitamin D3 5000 intl units oral capsule Start: 11/07/17 14:30:00 EDT Start Date: 11/07/17 Status: Ordered Zanaflex 4 mg oral tablet Start: 11/09/15 15:42:00, 1 tab, PO, q8h, Disp# 90 tab, Refills: 2, Begin with a half tablet and advance to a full tablet as tolerated, Pharmacy: [facility] [id number] Start Date: 11/09/15 Stop Date: 02/07/16 Status: [...] Active Right hand pain(Confirmed) Active Heart(Confirmed) Active Hip pain, right(Confirmed) Active [...] 6Adenomatous polyp - repeat 5 years. 7benign Results Laboratory List Name Date Complete Blood Count w Differential (CBC ,DIFFH) 07/15/20 Comprehensive Metabolic Panel (COMP META B PANEL) 07/15/20 Hemoglobin A1C (HEMOGLOBIN, A1C) 07/15/20 Lipid Profile (LIPOPROTEINS) 07/15/20 Thyroid Stimulating Hormone (TSH) 1 Most recent to oldest [Reference Range]: 1 Estimated Average Glucose 117 mg/dL 1 (07/15/20 9:23 AM) Non-HDL 114 mg/dL 2 (07/15/20 9:23 AM) Estimated GFR, Black Race [>60 mL/min/1. 73 m2] >60 mL/min/1.73 m2 (07/15/20 9:23 AM) Estimated GFR, non-Black Race [>60 mL/mi n/1.73 m2] 58 mL/min/1.73 m2 *LOW* (07/15/20 9:23 AM) MPV [9.0-12.2 fL] 10.4 fL (07/15/20 9:23 AM) Immature Gran% 0.3 % (07/15/20 9:23 AM) Neut% 69.8 % (07/15/20 9:23 AM) Lymph% 18.0 % (07/15/20 9:23 AM) Mccormick% 8.5 % (07/15/20 9:23 AM) Baso% 0.4 % (07/15/20 9:23 AM) Eos% 3.0 % (07/15/20 9:23 AM) Immat Gran, Abs [0-0.4 K/uL] 0.02 K/uL 3 (07/15/20 9:23 AM) Neut, Abs [2.0-7.7 K/uL] 4.91 K/uL (07/15/20 9:23 AM) Lymph, Abs [1.0-3.4 K/uL] 1.27 K/uL (07/15/20 9:23 AM) Mccormick, Abs [0-1.0 K/uL] 0.60 K/uL (07/15/20 9:23 AM) Baso, Abs [0-0.1 K/uL] 0.03 K/uL (07/15/20 9:23 AM) Eos, Abs [0-0.5 K/uL] 0.21 K/uL (07/15/20 9:23 AM) Type of Diff: AUTO *Unknown* (07/15/20 AM) RDW [11.5-14.2 %] 12.1 % (07/15/20: AM) Anion Gap [5-14 mmol/L] 3 mmol/L 4 *LOW* (07/15/20 AM) Alb [3.5-5.0 g/dL] 4.1 g/dL (07/15/20: AM) Alk Phos [38-126 unit/L] 108 unit/L (07/15/20: AM) ALT [<35 unit/L] 16 unit/L (07/15/20: AM) AST [15-46 unit/L] 27 unit/L (07/15/20:23 AM) BUN [7-20 mg/dL] 13 mg/dL (07/15/20:23 AM) Ca [8.4-10.2 mg/dL] 9.7 mg/dL (07/15/20:23 AM) Chol/HDL 3 (07/15/20 AM) Chol [125-200 mg/dL] 178 mg/dL (07/15/20:23 AM) Cl- [96-107 mmol/L] 101 mmol/L (07/15/20:23 AM) HCO3 [22-30 mmol/L] 32 mmol/L *HI* (07/15/20 AM) Cret [0.60-1.00 mg/dL] 0.94 mg/dL (07/15/20 9:23 AM) HbA1c [4.0-6.0 %] 5.7 % (07/15/20 AM) Glu [74-106 mg/dL] 106 mg/dL (07/15/20 AM) Hct [35-44 %] 39.3 % (07/15/20 AM) HDL [>35 mg/dL] 64 mg/dL (07/15/20 AM) Hgb [11.7-15.0 g/dL] 13.3 g/dL (07/15/20 AM) K [3.5-5.1 mmol/L] 4.7 mmol/L (07/15/20 AM) LDL Chol, Calculated [50-130 mg/dL] 95 m g/dL (07/15/20 AM) MCH [28-33 pg] 30.0 pg (07/15/20 AM) MCHC [32-36 g/dL] 33.8 g/dL (07/15/20 AM) MCV [81-96 fL] 88.5 fL (07/15/20 AM) Na [137-145 mmol/L] 136 mmol/L *LOW* (07/15/20 AM) Plts [150-350 K/uL] 305 K/uL (07/15/20 AM) RBC [3.90-5.00 M/uL] 4.44 M/uL (07/15/20 AM) T Bili [0.2-1.3 mg/dL] 0.8 mg/dL (07/15/20 AM) Prot [6.3-8.2 g/dL] 7.0 g/dL (07/15/20 AM) TG [<200 mg/dL] 97 mg/dL (07/15/20 AM) TSH [0.47-4.68 uIU/mL] 1.40 uIU/mL 5 (07/15/20 AM) WBC [4.0-10.4 K/uL] 7.04 K/uL (07/15/20 AM) 1Result Comment: Testing Performed By: [facility] [address], [address], [place] [address] 2Result Comment: Testing Performed By: Dept of Pathology [facility] [address], [address], [place] [address] 3Result Comment: Testing Performed By: Dept of Pathology [facility] [address], [address], [place] [address] 4Result Comment: Testing Performed By: Dept of Pathology [facility] [address], [address], [place] [address] 5Result Comment: Testing Performed By: Dept of Pathology [facility] [address], [address], [place] [address] Social History Social History Type Response Tobacco 1 Smoking Status Never smoked cigaret chung Sex Female 1quit 1988
--- OUTSIDE RECORDS SUMMARY | 2022-12-12 21:49 | External Medical Summary | Summary of Care ---
Author Name Unknown Organization [place] [address] Care Team Providers Care Rehab Specialist Name Role Phone Chelsea Berumen Primary Care Provid er Reason for Referral * Evaluate & Treat - Unlimited Visits (Within 30 days (routine)) Status Reason Specialty Diagnoses / Procedures Referred By Contact Referred To Contact Pending Review Specialty Services Required General Surgery Diagnoses Bleeding hemorrhoids Dejah Santos CRNP [address] [facility] [place] [address] Reason for Visit * Reason Comments Consultation rectal bleeding, hem orrhoids Encounter Details Date Type Department Care Team Description 12/10/2019 Office Visit Gastroenterology, [facility] [address] [facility] [place] [address] Dejah Santos CRNP [address] [facility] [place] [address] [phone] Bleeding hemorrhoids* Allergies Active Allergy Reactions Severity Noted Date Comments Prednisone Other (Please comment) 12/22/2016 Severe depression documented as of this encounter (statuses as of 12/11/2019) Medications Medication Sig Dispensed Refills Start Date [...] units Capsule Take by mouth. 0 Active [place] 3 1200 MG CAPS 0 Active Biotin 1 MG Capsule 0 Activ e Ascorbic Acid (VITAMIN C) 1000 MG Tablet Take 1,000 mg by mouth daily. 0 Active fluticasone (FLONASE) 50 MCG/ACT nasal sprayIndications:Po st-nasal drip,Cough Administer 2 Sprays into each nostril daily. 1 Inhaler 5 05/18/2017 Active Additional Information Patient not taking. Reported on 10/11/2019 MEDICAL INSTRUCTIONS Use as directed. Bi-Est estrogen [...] 3 times a day. 0 Active Witch Abilio-Glycerin External Pad (A.E.R. Witch Abilio) Apply topically to affected area as needed. 0 Active documented as of this encounter (statuses as of 12/11/2019) Active Problems Problem Noted Date DETECT Research Study*[id number] Overview: DO NOT DELETE - [facility] DETECT Study: Project # [id number], Life Skills Worker: Nando Villeda, MS, MPH. SUMMARY: Goal: Establish [...] contact study staff at ; after hours Life Skills Worker via the [facility] crew boat operator . - Please contact study team before resolving/deleting from patients problem list. Study phone number: [phone]. Prediabetes 08/08/2017 Overview: Per Prediabetes protocol #1 [...] as of this encounter (statuses as of 12/11/2019) Resolved Problems Problem Noted Date Resolved Date DETECT Research Study*[id number] 08/28/2017 10/21/2019 Overview: DO NOT DELETE [facility] DETECT Study: Project # [id number], Life Skills Worker: Jace Arrington, PhD. SUMMARY: Goal: Establish test [...] contact study staff at ; after hours Life Skills Worker via the [facility] crew boat operator . Please contact study team before resolving/deleting from patients problem list. Study phone number: [phone]. Sciatica without lumbago 03/31/2016 017 Inflammation of [...] as of this encounter (statuses as of 12/11/2019) Immunizations Name Administration Dates Next Due PPD 12/21/2017, 7,01/29/2016,02/20,02/10/2015 Pneumococcal Conjugate Vacc, 13 Valent (Prevnar) 07/08/2015 Pneumococcal Polysaccharide PPV23 (Pneumovax) 10/13/2016,08/16/2002 Seasonal Influenza, Cell Cul gricelda, 18 Yrs & Older 02/01/2013 Seasonal Influenza, [...] Smoker Quit: 03/19 Smokeless Tobacco: Never Used Tobacco Cessation:Counseling Given: No Comments:quit 1987 Alcohol Use Drinks/Week oz/Week Comments No Sex Assigned at Date Recorded Not on file documented as of this encounter Last Filed Vital Signs Vital Sign Reading Time Taken Comments Blood Pressure 164/118 12/10/2019 1:36 PM EDT Pulse 78 12/10/2019 1:36 PM EDT Temperature 36.6 °C (97.8 °F) 12/10/2019 1:36 PM ED T Respiratory Rate - - Oxygen Saturation - - Inhaled Oxygen Concentration - - Weight 72.1 kg (158 lb 14.4 oz) 12/10/2019 1:36 PM EDT Height - - Body Mass Index 27.28 07/11/2018 2:03 PM EDT documented in this encounter Progress Notes * Dejah Santos CRNP - 12/10/2019 1:30 PM EDT DATE OF SERVICE: 12/10/2019 REFERRING PHYSICIAN: MARY Gorman CC: follow up Office Visit 12/10/2019 : Has not had much improvement with her hemorrhoids. Notes she is using SITZbath, Witch Abilio, PrepH have not relieved her symptoms. Persistent rectal burning, pain, bleeding.Bowels have been moving well - no diarrhea/constipation. No straining. No blood mixed with stool. No black stool. No abd pain. Does have a lot of gas. No nausea/vomiting. Weight stable. No fever, chills, CP, SOB. Office Visit 10/11/2019 : New patient to me, followed by other providers in GI clinic for IBS. Had been doing well on low FODMAPs diet. No current issue with bloating,constipation. Todays concern is hemorrhoids. Suggests bowels alternate. Some loose stools, constipation. Uses Miralax to regulate herbowels. She notes she has rectal pain/pressure. Has been using OTC hemorrhoidal cream/lidocaine jelly, prep H suppository. She seem some blood streaking on the toilet tissue. No blood in toilet bowl.No blood mixed with stool. No weight loss. No fever, chills, CP, SOB. TTG IGA 2018: negative CTAP 2018: Sigmoid diverticulosis with questionable early diverticulitis. No free air or fluid collection.Mildly dilated upper portion of common bile duct, may be related to cholecystomy. Correlate with liver function tests. Colonoscopy 2017: One 4 mm polyp in the ascending colon, removed with a coldsnare. Resected and retrieved.One 6 mm polyp at the hepatic flexure, removed with a coldsnare. Resected and retrieved. 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 • Depressive disorder, not elsewhere classified • Dermatochalasis both eyes • Disorder of bone and cartilage osteopenia • Dyslipidemia, goal to be determined on red yeast rice in place of statin • Generalized anxiety disorder • Hypothyroidism • Irritable bowel syndrome IBS-C • Myalgia and myositis • Posttraumatic stress disorder sees Psychologist • Spasm of muscle sees chiropractor, used to get trigger point injections • Vitamin D deficiency Family History Problem Relation Age of Onset [...] Sister hystoplamosis of the optic nerve, OU Past Surgical History: Procedure Laterality Date • BIOPSY OF BREAST, OPEN 1991 Breast Biopsy, Benign Disease • COLONOSCOPY, DIAGNOSTIC (RECTUM) 12/29/2016 adenomatous polyp, repeat 5 yrs/COLONOSCOPY FLEXIBLE PROXIMAL DIAGNOSTIC performed by Ruslan Kelly MD at [facility] • GENITAL SURGERY PROCEDURE NEC 1982 at age 42, 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 Hu • TOTAL HYSTERECTOMY 1989 still has one ovary Social History Tobacco Use • Smoking status: Former Smoker Quit date: 03/19/1988 Years since quittin.7 • Smokeless tobacco: Never Used • Tobacco comment: quit 1987 Substance Use Topics • Alcohol use: No • Drug use: No Review of patient's allergies indicates: Allergen Reactions • Prednisone Other (Please comment) Severe depression Current Outpatient Medications Medication Sig Dispense Refill • Witch Abilio-Glycerin External Pad (A.E.R. Witch Abilio) Apply topically to affected area as needed. [...] cream to arm every other day • Ascorbic Acid (VITAMIN C) 1000 MG Tablet Take 1,000 mg by mouth daily. • Biotin 1 MG Capsule • Cholecalciferol (VITAMIN D-3) 1000 units Capsule Take by mouth. • [place] 3 1200 MG CAPS • dicyclomine (BENTYL) [...] RICE 600 MG PO CAPS 1 daily fluticasone (FLONASE) 50 MCG/ACT nasal spray Administer 2 Sprays into each nostril daily. (Patient not taking: Reported on 10/11/2019) 1 Inhaler 5 STOOL SOFTENER 100 MG PO TABS 1 tablet daily as needed for constipation REVIEW OF SYSTEMS: No lightheadedness or dizziness No fevers, chills, sweats No vision loss, eye pain, redness No oral ulcers, trouble swallowing No chest pain, palpitations, syncope No cough, shortness of breath, exertional dyspnea No rashes or other skin lesions No edema No bleeding tendencies or excessive bruising All other findings negative. EXAM: BP (!) 164/118 | Pulse 78 | Temp 36.6 °C (97.8 °F) (Tympanic) | Wt 72.1 kg (158 lb 14.4 oz) | BMI27.28 kg/m² | BSA 1.8 m² Repeat manual BP: 156/84 GENERAL: Well developed and well nourished in no acute distress. SKIN: No rashes, ulcers, jaundice HEENT: Normocephalic, sclera clear NECK: Supple LUNGS: Clear to auscultation bilaterally, no respiratory distress or accessory muscles used. HEART: Regular rate & rhythm, no murmurs and no gallops. ABDOMEN: Normal bowel sounds, soft and nontender, no masses or hepatosplenomegaly. EXTREMITIES: No palmar erythema, no ankle edema NEURO: No lateralizing findings. Sensory/Motor grossly normal. DIAGNOSTIC TEST: Surgery referral op ASSESSMENT AND PLAN: 79 year old female with IBS, concern for hemorrhoidal flare w/ rectal pressure/pain and intermittent bleeding. External examination with skin tag but no evidence of thrombosed hemorrhoids. - Labs - Request records - Continue supportive measures - Fiber - Good water intake - SITZ bath - PrepH suppository - Witch Abilio pads as needed - Arrange colonoscopy - General surgery consultation - ED for emergencies - Please call with any questions or concerns RETURN TO CLINIC: MARY Ghotra 12/10/2019 1:56 PM R: 12/10/2019 documented in this encounter Nursing Notes * Ofe Oh LPN - 12/11/2019 8:27 AM EDT 164/118 in Gastro on 12/10/2019 Left message for return call Spoke with Chidi at PCP office and made aware * Randi Melo LPN - 12/10/2019 1:26 PM EDT Chief Complaint Patient presents with • Consultation rectal bleeding, hemorrhoids Pt still experiencing pain and burning with her hems, no bleeding at this time, using OTC prep H, suppositories, sitz baths, epsom salts, ice, witch abilio pads, having trouble sleeping d/t pain, using tylenol and valium Not taking colace d/t it not helping [Water, miralax, apple cider vinegar and kevir, psyllium] was drinking this concoction for hems documented in this encounter Plan of Treatment Upcoming Encounters Date Type Specialty Care Team Description 01/15/2020 Office Visit General Surgery Luis Miguel Hawk MD [address] [place] [address] [place] [address] [phone] Scheduled Referrals Name Type Priority Associated Diagnoses Orde r Schedule SURGERY REFERRAL OP Referral Within 30 da ys (routine) Bleeding hemorrhoids Ordered: 12/10/2019 Health Maintenance Due Date Last Done Comments Zoster Vaccines (2 of 3) 05/15/2007 03/20/2007 CKD GFR USE SMARTSET 03607 03/02/201808/31, 07/29/2017, 11/14/2016, Additional history exists CKD HGB USE SMARTSET 00371 07/29/201807/29, 03/31/2016, 08/05/2015, Additional history exists CKD PHOS USE SMARTSET 70328 07/29/201807/18, 03/31/2016, 08/06/2014 *DEPRESSION SCREENING,ANNUAL FOR PTS 12 AND OVER 08/14/2018 Prediabetes-Yearly Hemoglobin A1c 08/24/2018 08/24/2017, 08/24/2017 *BASIC METABOLIC PANEL (BMP) FOR HTN YEARLY 09/03/2018 DXA-SCREENING EVERY 7 YRS-USE SMARTSET# 3348 TO ORDER 03/15/2019 03/15/2012 Influenza Vaccine (FLU shot) (#1) [...] as of this encounter Visit Diagnoses Diagnosis Bleeding hemorrhoids- Primary Unspecified hemorrhoids with other complication documented in this encounter Advance Directives Documents on File Type Date Recorded Patient Manager Shell Expl anation Advance Directives and Living Will [...] Advanced Directive Advanced Directive Advanced Directive Advanced Directive"
--- OUTSIDE RECORDS SUMMARY | 2022-12-12 21:49 | External Medical Summary | Summary of Care ---
Author Name Unknown Organization [place] [address] Care Team Providers Care Senior Java Web Developer Name Role Phone Chelsea Berumen Primary Care Provid er Reason for Visit * Reason Onset Date Comments Advice 12/28/2019 Encounter Details Date Type Department Care Team Description 12/28/2019 Telephone General Surgery, [facility] [address] [facility] [place] [address] Luis Miguel Hawk MD [address] [facility] [place] [address] [phone] Advice Allergies Active Allergy Reactions Severity Noted Date Comments Prednisone Other (Please comment) 12/22/2016 Severe depression documented as of this encounter (statuses as of 12/30/2019) Medications Medication Sig Dispensed Refills Start Date [...] units Capsule Take by mouth. 0 Active [place] 3 1200 MG CAPS 0 Active Biotin [...] as of this encounter (statuses as of 12/30/2019) Active Problems Problem Noted Date DETECT Research Study*[id number] Overview: DO NOT DELETE [facility] DETECT Study: Project # [id number], [employer] Consultant: Nando Villeda, MS, MPH. SUMMARY: Goal: [...] contact study staff at ; after hours [employer] Consultant via the [facility] grain cleaner and transfer operator . - Please contact study team before resolving/deleting from patients problem list. Study phone number: [phone]. Prediabetes 08/08/2017 Overview: Per Prediabetes protocol #1 [...] as of this encounter (statuses as of 12/30/2019) Resolved Problems Problem Noted Date Resolved Date DETECT Research Study*[id number] 08/28/2017 10/21/2019 Overview: DO NOT DELETE [facility] DETECT Study: Project # [id number], [employer] Consultant: Jace Arrington, PhD. SUMMARY: Goal: Establish [...] contact study staff at ; after hours [employer] Consultant via the [facility] grain cleaner and transfer operator . Please contact study team before resolving/deleting from patients problem list. Study phone number: [phone]. Sciatica without lumbago 03/31/2016 017 Inflammation of [...] as of this encounter (statuses as of 12/30/2019) Immunizations Name Administration Dates Next Due PPD [...] encounter Miscellaneous Notes * Telephone Encounter - Ky Obrien OSA - 12/30/2019 8:48 AM EDT Called patient and offered two sooner appointments to see Dr. Virk and she could not make either of these appts. Patient unable to make either of these appts and will keep her appt as scheduled. I notified her that I would contact her if there were any cancellations with Dr. Hawk for a sooner appt. * Telephone Encounter - Jose David Friend OSA - 12/28/2019 4:34 PM EDT Pt needs an appt sooner. She says she looks like she's 6 months . She is so full of poop. She only wants to see Dr. Hawk. Please call pt and advise. Thanks. documented in this encounter Plan of Treatment Upcoming Encounters Date Type Specialty Care Team Description 01/15/2020 Office Visit General Surgery Luis Miguel Hawk MD [address] [place] [address] [place] [address] [phone] Health Maintenance Due Date Last Done Comments Zoster Vaccines (2 of 3) 05/15/2007 03/20/2007 CKD GFR USE SMARTSET 81185 03/02/201808/31, 07/29/2017, 11/14/2016, Additional history exists CKD HGB USE SMARTSET 69215 07/29/201807/29, 03/31/2016, 08/05/2015, Additional history exists CKD PHOS USE SMARTSET 28839 07/29/201807/18, 03/31/2016, 08/06/2014 *DEPRESSION SCREENING,ANNUAL FOR PTS [...] Documents on File Type Date Recorded Patient Cinder Pit Worker Expl anation Advance Directives and Living Will [...]
--- OUTSIDE RECORDS SUMMARY | 2022-12-12 21:49 | External Medical Summary | Continuity of Care Document ---
Author Name Unknown Organization [id number] Address [address] [place] [id number] Care Team Providers Care Teacher Cclc Name Role Phone Chelsea Berumen Primary Care Physician [phone] [id number]/20 [facility] [address] [place], [place] [address]R [facility] Medicine [address] [place] [phone] Encounter Diagnosis Tinea unguium(Discharge Diagnosis) - 07/13/20 Peripheral vascular disease(Discharge Diagnosis) - 07/13/20 Discharge Disposition: Home or Self Care Attending Physician: SARAH Donaldson Christina L Referring Physician: MARY Berumen Barbara H Allergies, Adverse Reactions, Alerts Substance Reaction Severity Status predniSONE severe depression Active Assessment and Plan Extracted from: Title:Orthopaedics Office Visit Note Author:Brinda Castro DPM, Christina L Date:07/13/20 1. Tinea unguium -Patient unable to provide self care to toenails due to PVD - verbal consent obtained for debridement -Recommend toenail debridement -Patient had toenails of bilateral digits 1-5 debrided using nail nippers to tolerance, no bleeding noted -Patient instructed to use emery board to nails once per week -Patient had no ingrown toenails or infection noted -Patient is to follow up in 2-3 months for treatment if needed in the future -We had a 20-minute conversation today about her shoes that she wears her orthotics she was asking about brands of sandals that might be appropriate for her feet I suggested aetrex or vionic as brands that would support her feet appropriately I did check her orthotics they were new and well made I do feel that they are fitting appropriately and we discussed that there to help stabilize the history of arthritis in her feet as well as her prior ORIF of the left ankle she was understanding of this and will follow up with me in 2 to 3 months for ongoing care of her feet. 2. Peripheral vascular disease Immunizations Given and Recorded Vaccine Date Status Refusal Reason influenza virus vaccine, inactivated 1 12/16/19 Re corded influenza virus vaccine, inactivated 12/21/18 Sanjeev rded pneumococcal 23-valent vaccine 2 10/13/16 Recorded pneumococcal 23-valent vaccine 3 08/16/02 Recorded pneumococcal 13-valent vaccine 4 07/08/15 Recorded tetanus/diphtheria/pertuss, acel (Tdap) 5 12/20/11 Recorded zoster vaccine live 6 03/20/07 Recorded 1Result Comment: [facility] 2Result Comment: 2019-11-27: Historical information-source unspecified 3Result Comment: 2019-11-27: Historical information-source unspecified 4Result Comment: 2019-11-27: Historical information-source unspecified 5Result Comment: 2019-11-27: Historical information-source unspecified 6Result Comment: 2019-11-27: Historical information-source unspecified Medications Anusol-HC 2.5% rectal cream Start: 11/26/19 13:21:00 EDT, 1 appl, [place], tid, Disp# 30 g, Refills: 1, to affected area, Pharmacy: [facility]/pharmacy #[id number], 160, cm, 08/26/19 13:50:00 [...] 30 tab, Refills: 1, with food, Pharmacy: [facility]/pharmacy #[id number] Start Date: 05/13/20 Status: Ordered Ocuvite Extra oral tablet Start: 08/10/16 13:14:00, 1 tab, PO, Daily Start Date: 08/10/16 Status: Ordered Cherry Tree-3 oral capsule Start: 01/16/18 13:54:00 EDT, 1,200 [...] TAKE 1 TABLET DAILY, Pharmacy: [facility], 160, cm, 08/26/19 13:50:00 EDT, Height Start Date: 10/14/19 Status: Ordered Vitamin D3 5000 intl units oral capsule Start: 11/07/17 14:30:00 EDT Start Date: 11/07/17 Status: Ordered Zanaflex 4 mg oral tablet Start: 11/09/15 15:42:00, 1 tab, PO, q8h, Disp# 90 tab, Refills: 2, Begin with a half tablet and advance to a full tablet as tolerated, Pharmacy: [id number] Start Date: 11/09/15 Stop Date: 02/07/16 Status: Ordered Mental Status 07/13/20 Barriers to Learning one year None evide nt Mandatory Health Literacy Documentation Yes Health Literacy Communication Barriers N ever Primary Language Greek Problem List Condition Effective Dates Status Health [...] Clinical Service Informant Tinea unguium Discharge Diagnosis 07/13/20 Peripheral vascular disease Discharge Diagnosis 07/13/20 Procedures Procedure Date Related Diagnosis Body Site [...] Tobacco 1 Smoking Status Never smoked cigaret cuhng Sex Female 1quit 1987
--- OUTSIDE RECORDS SUMMARY | 2022-12-12 21:49 | External Medical Summary | Continuity of Care Document ---
Author Name Unknown Organization [facility] 1850 [facility] [address] [address] Care Team Providers Care Service Worker Name Role Phone Chelsea Berumen Primary Care Physician [phone] [id number] Date(s): 07/06/20 - 07/06/20 [facility] 0 [address] [facility] 207 [facility] 1850 [facility], [facility] 207 [place], [place] [address]Qpywt [phone] Encounter Diagnosis Hypothyroidism(Discharge Diagnosis) - 07/06/20 IBS (irritable bowel syndrome)(Discharge Diagnosis) - 07/06/20 Hypertension(Discharge Diagnosis) - 07/06/20 PTSD (post-traumatic stress disorder)(Discharge Diagnosis) - 07/06/20 Chronic kidney disease (CKD), stage III (moderate)(Discharge Diagnosis) - 07/06/20 Fatigue(Discharge Diagnosis) - 07/06/20 Discharge Disposition: Home or Self Care Attending Physician: MARY Berumen Barbara H Allergies, Adverse Reactions, Alerts Substance Reaction Severity Status predniSONE severe depression Active Assessment and Plan Extracted from: Title:Office Visit Note Author:MARY Oseguera Ji ll Nicole Date:07/06/20 1. Hypothyroidism Check blood work today 2. IBS (irritable bowel syndrome) Follows with GI for IBS FODMAP diet 3. Hypertension BP recheck improved somewhat recent stressors Continue to monitor 4. PTSD (post-traumatic stress disorder) Stable follows with psychiatry 5. Chronic kidney disease (CKD), stage III (moderate) Blood work ordered today Immunizations Given and Recorded Vaccine Date Status Refusal Reason influenza virus vaccine, inactivated 1 12/16/19 Re corded influenza virus vaccine, inactivated 12/21/18 Sanjeev rded pneumococcal 23-valent vaccine 2 10/13/16 Recorded pneumococcal 23-valent vaccine 3 08/16/02 Recorded pneumococcal 13-valent vaccine 4 07/08/15 Recorded tetanus/diphtheria/pertuss, acel (Tdap) 5 12/20/11 Recorded zoster vaccine live 6 03/20/07 Recorded 1Result Comment: [facility]acy 2Result Comment: 2019-11-27: Historical information-source unspecified 3Result Comment: 2019-11-27: Historical information-source unspecified 4Result Comment: 2019-11-27: Historical information-source unspecified 5Result Comment: 2019-11-27: Historical information-source unspecified 6Result Comment: 2019-11-27: Historical information-source unspecified Medications Anusol-HC 2.5% rectal cream Start: 11/26/19 13:21:00 EDT, 1 appl, [place], tid, Disp# 30 g, Refills: 1, to affected area, Pharmacy: [facility]/pharmacy #[id number], 160, cm, 08/26/19 13:50:00 EDT, [...] Refills: 1, with food, Pharmacy: [facility]/pharmacy #[id number] Start Date: 05/13/20 Status: Ordered Ocuvite Extra oral tablet Start: 08/10/16 13:14:00, 1 tab, PO, Daily Start Date: 08/10/16 Status: Ordered [place]-3 oral capsule Start: 01/16/18 13:54:00 EDT, 1,200 [...] 3, TAKE 1 TABLET DAILY, Pharmacy: [facility], 160, cm, 08/26/19 13:50:00 EDT, Height Start Date: 10/14/19 Status: Ordered Vitamin D3 5000 intl units oral capsule Start: 11/07/17 14:30:00 EDT Start Date: 11/07/17 Status: Ordered Zanaflex 4 mg oral tablet Start: 11/09/15 15:42:00, 1 tab, PO, q8h, Disp# 90 tab, Refills: 2, Begin with a half tablet and advance to a full tablet as tolerated, [id number] Start Date: 11/09/15 Stop Date: 02/07/16 Status: [...] Effective Dates Health Status Clinical Service Informant Hypertension Discharge Diagnosis 07/06/20 Hypothyroidism Discharge Diagnosis 07/06/20 IBS (irritable bowel syndrome) Discharge Diagnosis 07/06/20 PTSD (post-traumatic stress disorder) Discharge Diagnosis 07/06/20 Chronic kidney disease (CKD), stage III (moderate) Discharge Diagnosis 07/06/20 Fatigue Discharge Diagnosis 07/06/20 Non-Specified Procedures Procedure Date Related Diagnosis Body [...] 6Adenomatous polyp - repeat 5 years. 7benign Vital Signs Most recent to oldest [Reference Range]: 1 2 Patient Weight 72 kg (07/06/20 1:05 PM) Heart Rate 82 bpm (07/06/20 1:05 PM) Respiratory Rate 16 br/min (07/06/20 1:05 PM) Blood Pressure 138/84mmHg (07/06/20 2:10 PM) 152/90mmHg (07/06/20 1:05 PM) Social History Social History Type Response Tobacco 1 Smoking Status Never smoked cigaret chung Sex Female 1quit 1987
--- OUTSIDE RECORDS SUMMARY | 2022-12-12 21:49 | External Medical Summary | Continuity of Care Document ---
Author Name Unknown Organization [facility] [address] [place], [place] [address] Address [address] [place] [id number] Care Team Providers Care Voltage Inspector Name Role Phone Chelsea Berumen Primary Care Physician [phone] [id number] Date[facility] 05/19/20 - 05/19/20 [facility] 1849 [facility] [address] [facility] Medicine [address] [place] [phone] Encounter Diagnosis Sacroiliac joint pain(Discharge Diagnosis) - 05/19/20 Discharge Disposition: Home or Self Care Attending Physician: MD Seaman Philip J Referring Physician: BETTY Pérez, Randi Grant Allergies, Adverse [...] live 6 03/20/07 Recorded 1Result Comment: [facility] 2Result Comment: 2019-11-27: Historical information-source unspecified 3Result Comment: 2019-11-27: Historical information-source unspecified 4Result Comment: 2019-11-27: Historical information-source unspecified 5Result Comment: 2019-11-27: Historical information-source unspecified 6Result Comment: 2019-11-27: Historical information-source unspecified Medications Anusol-HC 2.5% rectal cream Start: 11/26/19 13:21:00 EDT, 1 appl, [place], tid, Disp# 30 g, Refills: 1, to affected area, Pharmacy: [facility]/pharmacy #[id number], 160, cm, 08/26/19 13:50:00 [...] tab, Refills: 1, with food, Pharmacy: [facility]/pharmacy #[id number] Start Date: 05/13/20 Status: Ordered Ocuvite Extra oral tablet Start: 08/10/16 13:14:00, 1 tab, PO, Daily Start Date: 08/10/16 Status: Ordered [place]-3 oral capsule Start: 01/16/18 13:54:00 EDT, 1,200 [...] Refills: 3, TAKE 1 TABLET DAILY, Pharmacy: [facility], 160, cm, 08/26/19 13:50:00 EDT, Height Start Date: 10/14/19 Status: Ordered Vitamin D3 5000 intl units oral capsule Start: 11/07/17 14:30:00 EDT Start Date: 11/07/17 Status: Ordered Zanaflex 4 mg oral tablet Start: 11/09/15 15:42:00, 1 tab, PO, q8h, Disp# 90 tab, Refills: 2, Begin with a half tablet and advance to a full tablet as tolerated, Pharmacy: [id number] Start Date: 11/09/15 Stop Date: 02/07/16 Status: Ordered Mental Status 05/19/20 Barriers to Learning one year None evide nt Mandatory Health Literacy Documentation Yes Health Literacy Communication Barriers N ever Primary Language Brazilian Problem List Condition Effective Dates Status Health [...] Service Informant Sacroiliac joint pain Discharge Diagnosis 05/19/20 Procedures Procedure Date Related Diagnosis Body Site [...]
--- OUTSIDE RECORDS SUMMARY | 2022-12-12 21:49 | External Medical Summary | Continuity of Care Document ---
Author Name Unknown Organization [facility] [address] [place], [place] [address] Address [address] [place] [phone] Care Team Providers Care Dust Mixer Name Role Phone Chelsea Berumen Primary Care Physician [phone] [id number] Date(s): 05/25/20 - 05/25/20 [facility] 1849 [facility] 112Q [facility] Medicine [address] [place] [phone] Encounter Diagnosis Right hand pain(Discharge Diagnosis) - 05/22/20 Sacroiliitis(Discharge Diagnosis) - 05/25/20 Discharge Disposition: Home or Self Care Attending [...] 6 03/20/07 Recorded 1Result Comment: [facility]acy 2Result Comment: 2019-11-27: Historical information-source unspecified 3Result Comment: 2019-11-27: Historical information-source unspecified 4Result Comment: 2019-11-27: Historical information-source unspecified 5Result Comment: 2019-11-27: Historical information-source unspecified 6Result Comment: 2019-11-27: Historical information-source unspecified Medications Anusol-HC 2.5% rectal cream Start: 11/26/19 13:21:00 EDT, 1 appl, [place], tid, Disp# 30 g, Refills: 1, to affected area, Pharmacy: [facility]/pharmacy #[id number], 160, cm, 08/26/19 13:50:00 [...] 30 tab, Refills: 1, with food, Pharmacy: [facility]/pharmacy #[id number] Start Date: 05/13/20 Status: Ordered Ocuvite Extra oral tablet Start: 08/10/16 13:14:00, 1 tab, PO, Daily Start Date: 08/10/16 Status: Ordered [place]-3 oral capsule Start: 01/16/18 13:54:00 EDT, 1,200 [...] Refills: 3, TAKE 1 TABLET DAILY, Pharmacy: [facility], 160, cm, 08/26/19 13:50:00 EDT, Height Start Date: 10/14/19 Status: Ordered Vitamin D3 5000 intl units oral capsule Start: 11/07/17 14:30:00 EDT Start Date: 11/07/17 Status: Ordered Zanaflex 4 mg oral tablet Start: 11/09/15 15:42:00, 1 tab, PO, q8h, Disp# 90 tab, Refills: 2, Begin with a half tablet and advance to a full tablet as tolerated, Pharmacy: [facility] [id number] Start Date: 11/09/15 Stop Date: 02/07/16 Status: Ordered Mental Status 05/25/20 Barriers to Learning one year None evide [...] Dates Health Status Cl inical Service Informant Right hand pain Discharge Diagnosis 05/22/20 Non-Specified Sacroiliitis Discharge Diagnosis 05/25/20 Procedures Procedure Date Related Diagnosis Body Site [...]
--- OUTSIDE RECORDS SUMMARY | 2022-12-12 21:49 | External Medical Summary | Continuity of Care Document ---
Author Name Unknown Organization [facility] 1850 [facility] 207 Address [address] [address] Care Team Providers Care Octave Board Assembler Name Role Phone Chelsea Berumen Primary Care Physician [phone] [id number] Date[facility]s): 08/11/20 - 08/11/20 [facility] [address] [facility] 207 [facility] [address] [facility], [address] [place], [place] [address]Buknv [phone] Encounter Diagnosis Pain of back and right lower extremity(Discharge Diagnosis) - 08/11/20 Discharge Disposition: Home or Self Care Attending Physician: MARY Berumen Barbara H Allergies, Adverse Reactions, Alerts Substance Reaction Severity Status predniSONE severe depression Active Assessment and Plan Extracted from: Title:Telehealth - severe low back pain Author:MARY Sutton Barbara H Date:08/11/20 1. Pain of back and right l ower extremity She is in "extreme pain" right now - scales as 20/10 at this point. Can't get out of her apartment - feels "like a disaster." Can't shower, can't wash her hair. Feels awful. Pain started with lower back pain - saw chiropractor & think he got a little too rough. This was MondayAugust 03 - knew something was wrong when she left the office. Was using her walker Monday. By Monday couldn't function. Was seen by ortho last week - steroid didn't help at all. Pain keeps getting worse. Suggested we get a MRI because of the extreme pain with radiation to the foot. She doesn't feel at this point she wants to go for testing & declined. She has been using low heat, ice pacs - does daily because of her issues. Tramadol was ordered at 50mg q8hr - this meets her psych request of no more than 150mg total for the day. She will try to get someone at her building to get the rx for her. She has 81mg ASA at home - advised to take 8 of them with food while waiting for the Tramadol. This will be ok for her kidneys. Hopefully this will take the edge off till she gets her Tramadol. She is aware this may cause stomach upset or bleeding personal development mentor. Ordered: traMADol, Start: 08/11/20 13:00:00 EDT, 1 tab, PO, q8h, Disp# 60 tab, Refills: 1, PRN: as needed for pain, Pharmacy: [facility] [id number] Immunizations Given and Recorded Vaccine Date Status Refusal Reason influenza virus vaccine, inactivated 1 12/16/19 Re corded influenza virus vaccine, inactivated 12/21/18 Sanjeev rded pneumococcal 23-valent vaccine 2 10/13/16 Recorded pneumococcal 23-valent vaccine 3 08/16/02 Recorded pneumococcal 13-valent vaccine 4 07/08/15 Recorded tetanus/diphtheria/pertuss, acel (Tdap) 5 12/20/11 Recorded zoster vaccine live 6 03/20/07 Recorded 1Result Comment: [facility]- Pharmacy 2Result Comment: 2019-11-27: Historical information-source unspecified 3Result Comment: 2019-11-27: Historical information-source unspecified 4Result Comment: 2019-11-27: Historical information-source unspecified 5Result Comment: 2019-11-27: Historical information-source unspecified 6Result Comment: 2019-11-27: Historical information-source unspecified Medications Anusol-HC 2.5% rectal cream Start: 11/26/19 13:21:00 EDT, 1 appl, [place], tid, Disp# 30 g, Refills: 1, to affected area, Pharmacy: [facility]/pharmacy #[id number], 160, cm, 08/26/19 13:50:00 EDT, Height Start [...] on package labeling for 6 days., Pharmacy: [facility] [id number] Start Date: 08/05/20 Stop Date: 08/11/20 Status: Ordered MiraLax Start: 10/19/15 13:31:00 Start Date: 10/19/15 Status: Ordered Ocuvite Extra oral tablet Start: 08/10/16 13:14:00, 1 tab, PO, Daily Start Date: 08/10/16 Status: Ordered [place]-3 oral capsule Start: 01/16/18 13:54:00 EDT, 1,200 [...] 1, PRN: as needed for pain, Pharmacy: [facility] 2229 Start Date: 08/11/20 Status: Ordered [...] Refills: 3, TAKE 1 TABLET DAILY, [facility]: [facility], 160, cm, 08/26/19 13:50:00 EDT, Height Start Date: 10/14/19 Status: Ordered Vitamin D3 5000 intl units oral capsule Start: 11/07/17 14:30:00 EDT Start Date: 11/07/17 Status: Ordered Zanaflex 4 mg oral tablet Start: 11/09/15 15:42:00, 1 tab, PO, q8h, Disp# 90 tab, Refills: 2, Begin with a half tablet and advance to a full tablet as tolerated, Pharmacy: [facility] 2229 Start Date: 11/09/15 Stop Date: 02/07/16 Status: Ordered Mental Status 08/11/20 Barriers to Learning one year None evide [...] Dates Health Status Cl inical Service Informant Pain of back and right lower extremity Discharge Diagnosis 08/11/20 Procedures Procedure Date Related Diagnosis Body Site [...]
--- OUTSIDE RECORDS SUMMARY | 2022-12-12 21:49 | External Medical Summary | Summary of Care ---
Author Name Unknown Organization [place] [address] Care Team Providers Care Dividend Clerk Name Role Phone Chelsea Berumen Primary Care Provid er Reason for Referral * Evaluate & Treat - Unlimited Visits (Within 30 days (routine)) Status Reason Specialty Diagnoses / Procedures Referred By Contact Referred To Contact Pending Review Specialty Services Required General Surgery Diagnoses Bleeding hemorrhoids Dejah Santos CRNP [address] [facility] [place] [address] Reason for Visit * Reason Comments Consultation rectal bleeding, hem orrhoids Encounter Details Date Type Department Care Team Description 12/10/2019 Office Visit Gastroenterology, [facility] [address] [facility] [place] [address] Dejah Santos CRNP 132 [facility] [place] [address] [phone] Bleeding hemorrhoids* Allergies Active Allergy Reactions Severity [...] units Capsule Take by mouth. 0 Active [place] 3 1200 MG CAPS 0 Active Biotin [...] Active Problems Problem Noted Date DETECT Research Study*[id number] Overview: DO NOT DELETE - [facility] DETECT Study: Project # [id number], Filemaker Developer: Nando Villeda, MS, MPH. SUMMARY: Goal: Establish [...] contact study staff at ; after hours Filemaker Developer via the [facility] pre press operator . - Please contact study team before resolving/deleting from patients problem list. Study phone number: [phone]. Prediabetes 08/08/2017 Overview: Per Prediabetes protocol #1 [...] Problem Noted Date Resolved Date DETECT Research Study*[id number] 08/28/2017 10/21/2019 Overview: DO NOT DELETE Carmelo Bautista DETECT Study: Project # [id number], Filemaker Developer: Jace Arrington, PhD. SUMMARY: Goal: Establish test [...] contact study staff at ; after hours Filemaker Developer via the [facility] hospital pre press operator . Please contact study team before resolving/deleting from patients problem list. Study phone number: [phone]. Sciatica without lumbago 03/31/2016 017 Inflammation of [...] 1000 units Capsule Take by mouth. • [place] 3 1200 MG CAPS • dicyclomine (BENTYL) [...] Notes * Ofe Oh LPN - 12/11/2019 10:10 AM EDT Spoke with patient she does have HTN. She states she has been stressed. Just got a new computer andhaving a hard time with her passwords. Broke her finger in the last two weeks. She denies any chestpain, sob, headaches, dizziness or blurred vision. Encouraged pt to follow up at PCP office and reinforced signs and symptoms and when to go to the ED. Pt stated understanding. She states will ask Pharmacist to check her BP * Ofe Oh LPN - 12/11/2019 8:27 [...] General Surgery Luis Miguel Hawk MD 132 [facility] [place] [address] [phone] Scheduled Referrals Name Type Priority Associated Diagnoses Orde r Schedule SURGERY REFERRAL OP Referral Within 30 da ys (routine) Bleeding hemorrhoids Ordered: 12/10/2019 Health Maintenance Due Date Last Done Comments Zoster Vaccines (2 of 3) 05/15/2007 03/20/2007 CKD GFR USE SMARTSET 80443 03/02/201808/31, 07/29/2017, 11/14/2016, Additional history exists CKD HGB USE SMARTSET 97367 07/29/201807/29, 03/31/2016, 08/05/2015, Additional history exists CKD PHOS USE SMARTSET 96040 07/29/201807/18, 03/31/2016, 08/06/2014 *DEPRESSION SCREENING,ANNUAL FOR PTS [...] Documents on File Type Date Recorded Patient Baggage Screener Expl anation Advance Directives and Living Will [...]
--- OUTSIDE RECORDS SUMMARY | 2022-12-12 21:49 | External Medical Summary | Continuity of Care Document ---
Author Name Unknown Organization [place] [id number] Address [address] [place] [address] Care Team Providers Care Chief Investment Officer Name Role Phone Chelsea Berumen Primary Care Physician [phone] [id number] Date(s): 06/17/20 - 06/17/20 [facility] 0 [facility] 112A [facility] Medicine [address] [place] [phone] Encounter Diagnosis Sacroiliitis(Discharge Diagnosis) - 06/17/20 Discharge Disposition: Home or Self Care Attending Physician: MD Toney, Ori Sanchez Referring Physician: BETTY Pérez, Randi Grant Allergies, [...] live 6 03/20/07 Recorded 1Result Comment: [facility] Pharmacy 2Result Comment: 2019-11-27: Historical [...] PO, Daily Start Date: 08/10/16 Status: Ordered [place]-3 oral capsule Start: 01/16/18 13:54:00 EDT, 1,200 [...] Refills: 3, TAKE 1 TABLET DAILY, Pharmacy: [facility], 160, cm, 08/26/19 13:50:00 EDT, Height Start Date: 10/14/19 Status: Ordered Vitamin D3 5000 intl units oral capsule Start: 11/07/17 14:30:00 EDT Start Date: 11/07/17 Status: Ordered Zanaflex 4 mg oral tablet Start: 11/09/15 15:42:00, 1 tab, PO, q8h, Disp# 90 tab, Refills: 2, Begin with a half tablet and advance to a full tablet as tolerated, Pharmacy: [facility] [id number] Start Date: 11/09/15 Stop Date: 02/07/16 Status: Ordered Mental Status 06/17/20 Barriers to Learning one year None evide nt Mandatory Health Literacy Documentation Yes Health Literacy Communication Barriers N ever Primary Language Sinhala Problem List Condition Effective Dates Status Health [...] Dates Health Status Cl inical Service Informant Sacroiliitis Discharge Diagnosis 06/17/20 Procedures Procedure Date Related Diagnosis Body Site [...] oldest [Reference Range]: 1 Height 160.7 cm (06/17/20 8:56 AM) Patient Weight 72.5 kg (06/17/20 8:56 AM) Body Mass Index 28.07 kg/m2 (06/17/20 8:56 AM) Blood Pressure 128/64mmHg (06/17/20 8:56 AM) Social History Social History Type Response Tobacco 1 Smoking Status Never smoked cigaret chung Sex Female 1quit 1987
--- OUTSIDE RECORDS SUMMARY | 2022-12-12 21:50 | External Medical Summary | Summary of Care ---
Author Name Unknown Organization [place] [address] Phone Care Team Providers Care Underground Heavy Equipment Operator Name Role Phone Coco Darnell DO Primary Care Provider [phone] Reason for Visit * Reason Comments BLOOD PRESSURE CHECK Encounter Details Date Type Department Care Team Description 12/21/2017 Telephone [facility] [address] [place] [address] Coco Darnell DO [address], [place] [id number] BLOOD PRESSURE CHECK Allergies Active Allergy Reactions Severity Noted Date Comments Prednisone Other (Please comment) 12/22/2016 Severe depression as of this encounter Medications Prescription Sig. Disp. Refills Start Date End Date Status STOOL SOFTENER 100 MG PO TABS 1 tablet daily as needed for constipation Active ASPIRIN 81 MG PO TABS 2 daily Active RED YEAST RICE 600 MG PO CAPS 1 daily Active PROGESTERONE 1000 MG/60GM EX CREA apply once daily Act stephanie cyclosporine (RESTASIS) 0.05 % ophthalmic [...] gram powder Take 17 g by mouth as needed for Constipation. Dissolve one heaping tablespoon in 8 ounces of water or juice. 1 Bottle 2 08/12/2015 Active gabapentin (NEURONTIN) 100 MG Capsule Take 3 times a day 1 Cap 0 01/22/2016 Active tiZANidine (ZANAFLEX) 4 MG Tablet Take 0.5 Tabs by mouth. 1 Tab 0 01/22/2016 Active DULoxetine (CYMBALTA) 20 MG CPEP 04/30/2016 Active dicyclomine (BENTYL) 10 MG CapsuleIndications: Irritable bowel syndrome with both constipation and diarrhea Take 1 Cap by mouth 4 times a day as needed for Cramping. For abdominal pain 120 Cap 5 10/13/2016 Active Cholecalciferol (VITAMIN D-3) 1000 units Capsule Take by mouth. Active [place] 3 1200 MG CAPS Active Biotin 1 MG Capsule Activ e Ascorbic Acid (VITAMIN C) 1000 MG Tablet Take 1,000 mg by mouth daily. Active fluticasone (FLONASE) 50 MCG/ACT nasal sprayIndications:Po st-nasal drip,Cough Administer 2 Sprays into each nostril daily. 1 Inhaler 5 05/18/2017 Active MEDICAL INSTRUCTIONS Use as directed. Bi-Est estrogen cream --apply cream to arm every other day Active acetaminophen (TYLENOL EXTRA STRENGTH) 500 MG Tablet Take 500 mg by mouth every 6 hours as needed for Pain. Active tretinoin (RETIN-A) 0.05 % creamIndications:Fa cial rhytids Apply topically to affected area at bedtime. Apply a thin layer to face at bedtime 45 g 2 11/28/2017 Active valsartan (DIOVAN) 80 MG Tablet Take 1 Tab by mouth daily. 30 Tab 0 12/01/2017 Active valsartan (DIOVAN) 80 MG Tablet Take 1 Tab by mouth daily. 90 Tab 1 12/01/2017 Active as of this encounter Active Problems Problem Noted Date DETECT Research Study*[id number] Overview: [facility] DETECT Study: Project # [id number], Assistant To The Vice President: Jace Arrington, PhD. SUMMARY: Goal: Establish test [...] contact study staff at ; after hours Assistant To The Vice President via the [facility] [place] ecdis n navigation operator . Prediabetes 08/08/2017 Overview: Per Prediabetes protocol #1 HTN, goal below 140/90 01/18/2017 Benign hypertension with CKD (chronic ki dney disease) stage III (HCC) 01/18/2017 LVH (left ventricular hypert rophy) due [...] disorder Overview: sees Psychologist Vitamin D deficiency as of this encounter Resolved Problems Problem Noted Date Resolved Date Sciatica without lumbago 03/31/2016 017 Inflammation of sacroiliac joint (HCC) 7 04/24/2017 Kidney disease, chronic, stage III (GFR [...] contributing to her neck and arm pain. as of this encounter Immunizations Name Dates Previously Given Next Due PPD 12/21/2017, 7,01/29/2016,06/2014,02/10/2015 Pneumococcal Conjugate Vacc, 13 Valent (Prevnar) 07/08/2015 Pneumococcal Polysaccharide PPV23 (Pneumovax) 10/13/2016,08/16/2002 Seasonal Influenza, Cell Cul ture, 18 Yrs & Older 02/01/2013 Seasonal Influenza, Quadriva lent, No Preserve, 6 Mons & Above, IM 12/21/2017 Seasonal Influenza, Quadriva lent, No Preserve, IM 01/22/2016 Seasonal Influenza, Trivalen t, with Preserve, 3yr & Above, Split 12/25/2016,11/21/2014,11/19/2013,04/2011,01/31/2011,01/18/2010 TDAP (age 10 and older)(Boostrix) 12/20/2011 Varicella Zoster Vaccine (Adult) 03/20/2007 as of this encounter Social History Tobacco Use Types Packs/Day Years Used Date Former Smoker Quit: 03/19 Smokeless Tobacco: Never Used Comments:quit 1987 Alcohol Use Drinks/Week oz/Week Comments No Sex Assigned at Date Recorded Not on file as of this encounter Miscellaneous Notes * Telephone Encounter - Coco Darnell DO - 12/25/2017 7:26 AM EDT BP ok. Will not make changes at this point. GILMA Pope. * Telephone Encounter - Harmony Montelongo LPN - 12/23/2017 1:32 PM EDT While patient was here for PPD reading, she requesting to be seen for BP check. BP 142/68 P 68 Patient states she has been taking her medications. She also was asking me who she can speak to regarding an insurance issue she's having, and a diagnosis of CKD. I explained that there is no one here at this time from administration, but they will return to the offices on Monday. Patient continued using vulgarities, stating "no one gives a shit". Patient stated that she has spoken with several people regarding this issue. As she was leaving, she stated she has called "people in [place]" and they "don't like it when you get angry with them". * Telephone Encounter - Tracie Vazquez LPN - 12/21/2017 2:40 PM EDT Formatting of this note may be different from the original. Pt here for nurse visit for blood pressure check due to medication change and elevated blood pressure at last office visit. B/P 169/68 Pulse 69 BP Readings from Last 4 Encounters: 12/21/17 169/68 11/24/17 150/74 09/18/17 138/82 08/31/17 124/66 Telephone encounter made about this visit to provider. Patient aware that our office will call them back if there is a change with their medication or treatment, otherwise, no phone call will be made back to the patient. in this encounter Plan of Treatment Upcoming Encounters Date Type Specialty Care Team Description 02/13/2018 Office Visit Family Medicine Coco Darnell DO [address] [place] [address] [id number] 05/29/2018 Office Visit Dermatology Laurel Arnett MD [address] [facility] [place] [address] [phone] Health Maintenance Due Date Last Done Comments CKD URINE PROTEIN/CREATININE RATION OR URINE MICROALBUMIN YEARLY USE SMARTSET 57121 01/18/2018 01/18/2017 CKD GFR USE SMARTSET 38704 03/02/201808/31, 07/29/2017, 11/14/2016, Additional history exists CKD HGB USE SMARTSET 18171 07/29/201807/29, 03/31/2016, 08/05/2015, Additional history exists CKD PHOS USE SMARTSET 04492 07/29/201807/18, 03/31/2016, 08/06/2014 Prediabetes-Yearly Hemoglobin A1c 08/24/2018 018, 08/24/2017 DXA-SCREENING EVERY 7 YRS-US E SMARTSET# 3348 TO ORDER 03/15/2019 03/15/2012 DIABETES SCREEN EVERY 3 YRS- AGE 45 AND ABOVE 08/31/2020 08/31/2017, 08/24/2017, 07/29/2017, Additional history exists DTaP,Tdap,and Td Vaccines (2 - Td) 12/19/20212011 COLONOSCOPY-EVERY 5 YRS AGES 18-100 12/29/2021 12/29/2016, 12/29/2016 PNEUMOCOCCAL ADULT 65 YRS AND OVER Completed 10/13/2016, 07/08/2015, 08/16/2002 Influenza Vaccine (FLU shot) Completed 06/2017, 12/25/2016, 01/22/2016, Additional history exists as of this encounter Implants Not on fileas of this encounter
--- OUTSIDE RECORDS SUMMARY | 2022-12-12 21:50 | External Medical Summary | Summary of Care ---
Author Name Unknown Organization [place] [address] Care Team Providers Care Performance Improvement Director Name Role Phone Chelsea Berumen Primary Care Provid er Reason for Referral * Evaluate & Treat - Unlimited Visits (Within 30 days (routine)) Status Reason Specialty Diagnoses / Procedures Referred By Contact Referred To Contact Pending Review Specialty Services Required General Surgery Diagnoses Bleeding hemorrhoids Dejah Santos CRNP [address] [facility] [place] [address] Reason for Visit * Reason Comments Consultation rectal bleeding, hem orrhoids Encounter Details Date Type Department Care Team Description 12/10/2019 Office Visit Gastroenterology, [facility] [address] [facility] [place] [address] Dejah Santos CRNP [address] [facility] [place] [address] [phone] Bleeding hemorrhoids* Allergies Active Allergy Reactions Severity Noted Date Comments Prednisone Other (Please comment) 12/22/2016 Severe depression documented as of this encounter (statuses as of 12/10/2019) Medications Medication Sig Dispensed Refills Start Date [...] units Capsule Take by mouth. 0 Active [place] 3 1200 MG CAPS 0 Active Biotin [...] as of this encounter (statuses as of 12/10/2019) Active Problems Problem Noted Date DETECT Research Study*[id number] Overview: DO NOT DELETE - [facility] DETECT Study: Project # [id number], Silhouette Artist: Nando Villeda, MS, MPH. SUMMARY: Goal: Establish [...] contact study staff at ; after hours Silhouette Artist via the [facility] [place] die cutter operator . - Please contact study team before resolving/deleting from patients problem list. Study phone number: [phone]. Prediabetes 08/08/2017 Overview: Per Prediabetes protocol #1 [...] as of this encounter (statuses as of 12/10/2019) Resolved Problems Problem Noted Date Resolved Date DETECT Research Study*[id number] 08/28/2017 10/21/2019 Overview: DO NOT DELETE [facility] DETECT Study: Project # [id number], Silhouette Artist: Jace Arrington, PhD. SUMMARY: Goal: Establish test [...] contact study staff at ; after hours Silhouette Artist via the [facility] [place] die cutter operator . Please contact study team before resolving/deleting from patients problem list. Study phone number: [phone]. Sciatica without lumbago 03/31/2016 017 Inflammation of [...] as of this encounter (statuses as of 12/10/2019) Immunizations Name Administration Dates Next Due PPD [...] performed by Ruslan Kelly MD at END[facility]COPY [facility] • GENITAL SURGERY PROCEDURE NEC 1982 at [...] 1000 units Capsule Take by mouth. • [place] 3 1200 MG CAPS • dicyclomine (BENTYL) [...] documented in this encounter Nursing Notes * Randi Melo LPN - 12/10/2019 1:26 [...] Visit General Surgery Luis Miguel Hawk MD [address] [place] [address] [place] [address] [phone] Scheduled Referrals Name Type Priority Associated Diagnoses Orde r Schedule SURGERY REFERRAL OP Referral Within 30 da ys (routine) Bleeding hemorrhoids Ordered: 12/10/2019 Health Maintenance Due Date Last Done Comments Zoster Vaccines (2 of 3) 05/15/2007 03/20/2007 CKD GFR USE SMARTSET 68324 03/02/201808/31, 07/29/2017, 11/14/2016, Additional history exists CKD HGB USE SMARTSET 98401 07/29/201807/29, 03/31/2016, 08/05/2015, Additional history exists CKD PHOS USE SMARTSET 39054 07/29/201807/18, 03/31/2016, 08/06/2014 *DEPRESSION SCREENING,ANNUAL FOR PTS [...] Documents on File Type Date Recorded Patient Air Cargo Ground Operations Supervisor Expl anation Advance Directives and Living Will [...]
--- OUTSIDE RECORDS SUMMARY | 2022-12-12 21:50 | External Medical Summary | Summary of Care ---
Author Name Unknown Organization [place] [address] Phone Care Team Providers Care It Service Continuity Supervisor Name Role Phone Coco Darnell DO Primary Care Provider [phone] Reason for Visit * Reason Comments FYI Encounter Details Date Type Department Care Team Description 12/25/2017 Telephone [facility] [address] [place] [address] Coco Darnell DO [address], [place] [id number] FYI Allergies Active Allergy Reactions Severity Noted Date [...] 1000 units Capsule Take by mouth. Active [place] 3 1200 MG CAPS Active Biotin 1 [...] Active Problems Problem Noted Date DETECT Research Study*[id number] Overview: [facility] DETECT Study: Project # [id number], Handwriting Expert: Jace Arrington, PhD. SUMMARY: Goal: Establish test [...] contact study staff at ; after hours Handwriting Expert via the [facility] tunnel drier operator . Prediabetes 08/08/2017 Overview: Per Prediabetes [...] encounter Miscellaneous Notes * Telephone Encounter - Cyndi Jordan RN - 12/26/2017 12:06 PM EDT Tracie returned call given message below * Telephone Encounter - Cyndi Jordan RN - 12/26/2017 8:38 AM EDT Left message for Tracie to return call to private line * Telephone Encounter - Coco Darnell DO - 12/25/2017 5:32 PM EDT You can let them know that nothing needs to be changed. * Telephone Encounter - Cyndi Jordan RN - 12/25/2017 10:55 AM EDT Called Oliverio Lewis there should be an email asking for you to review notes on Laurel she has madea formal complaint and they just need you to review and call them back state nothing needs to be changed or if something needs changed or added need to do an addendum * Telephone Encounter - Pia Jordan OSA - 12/25/2017 10:38 AM EDT Oliverio Lewis calling in to get in contact with Dr. Darnell regarding an amendment to a note. Pleaseand and contact Oliverio Lewis at [phone]. in this encounter Plan of Treatment Upcoming Encounters Date Type Specialty Care Team Description 02/13/2018 Office Visit Family Medicine Coco Darnell DO [address] [place] [address] [address] [phone] 05/29/2018 Office Visit Dermatology Laurel Arnett MD [address] [facility] [place] [address] [phone] Health Maintenance Due Date Last Done Comments CKD URINE PROTEIN/CREATININE RATION OR URINE MICROALBUMIN YEARLY USE SMARTSET 68175 01/18/2018 01/18/2017 CKD GFR USE SMARTSET 60631 03/02/201808/31, 07/29/2017, 11/14/2016, Additional history exists CKD HGB USE SMARTSET 06970 07/29/201807/29, 03/31/2016, 08/05/2015, Additional history exists CKD PHOS USE SMARTSET 34379 07/29/201807/18, 03/31/2016, 08/06/2014 Prediabetes-Yearly Hemoglobin A1c 08/24/2018 [...]
--- OUTSIDE RECORDS SUMMARY | 2022-12-12 21:50 | External Medical Summary | Summary of Care ---
Author Name Unknown Organization [place] [address] Phone Care Team Providers Care Channel Sales Director Name Role Phone Coco Hammond DO Primary Care Provider Reason for Visit * Reason Comments MEDICATION REFILL Encounter Details Date Type Department Care Team Description 12/27/2017 Refill [place] [address] [place] [address] Coco Hammond DO [address] [place] [address] [phone] Allergies Active Allergy Reactions Severity Noted Date [...] 11 05/14/2015 Active PARoxetine (PAXIL) 30 MG TabletIndications :Adjustment disorder with depressed mood,Posttraumati c stress disorder Take 1 Tab by mouth daily. 90 Tab 3 05/14/2015 Active diazepam (VALIUM) 5 MG TabletIndications :Spasm of muscle TAKE 1/2 TO ONE TABLET [...] CPEP 04/30/2016 Active dicyclomine (BENTYL) 10 MG CapsuleIndication s:Irritable bowel syndrome with both constipation and diarrhea Take 1 Cap by mouth 4 times a day as needed for Cramping. For abdominal pain 120 Cap 5 10/13/2016 Active Cholecalciferol (VITAMIN D-3) 1000 units Capsule Take by mouth. Active [place] 3 1200 MG CAPS Active Biotin 1 MG Capsule Active Ascorbic Acid (VITAMIN C) 1000 MG Tablet Take 1,000 mg by mouth daily. Active fluticasone (FLONASE) 50 MCG/ACT nasal sprayIndications: Post-nasal drip,Cough Administer 2 Sprays into each nostril daily. 1 Inhaler 5 05/18/2017 Active MEDICAL INSTRUCTIONS Use as directed. Bi-Est estrogen cream --apply cream to arm every other day Active acetaminophen (TYLENOL EXTRA STRENGTH) 500 MG Tablet Take 500 mg by mouth every 6 hours as needed for Pain. Active tretinoin (RETIN-A) 0.05 % creamIndications: Facial rhytids Apply topically to affected area at bedtime. Apply a thin layer to face at bedtime 45 g 2 11/28/2017 Active valsartan (DIOVAN) 80 MG Tablet Take 1 Tab by mouth daily. 90 Tab 1 12/01/2017 Active valsartan (DIOVAN) 80 MG Tablet Take 1 Tab by mouth daily. 30 Tab 0 12/27/2017 Active valsartan (DIOVAN) 80 MG Tablet Take 1 Tab by mouth daily. 30 Tab 0 12/01/2017 12/28/19 18 Discontinued as of this encounter Active Problems Problem Noted Date DETECT Research Study*[id number] Overview: [facility] DETECT Study: Project # [id number], Code Enforcement Supervisor: Jace Arrington, PhD. SUMMARY: Goal: Establish [...] contact study staff at ; after hours Code Enforcement Supervisor via the [facility] noodle press operator . Prediabetes 08/08/2017 Overview: Per Prediabetes [...] Miscellaneous Notes * Telephone Encounter - Coco Hammond DO - 12/27/2017 5:13 PM EDT Signed Prescriptions: Disp Refillsvalsartan (DIOVAN) 80 MG Tablet 30 Tab 0Sig: Take 1 Tab by mouth daily.Authorizing Provider: COCO HAMMOND * Telephone Encounter - Coco Hammond DO - 12/27/2017 5:13 PM EDT Short supply sent. Form given to Ester to fax. * Telephone Encounter - Lolis Quinones LPN - 12/27/2017 3:49 PM EDT Received a form from [facility] requesting clarification for Losartan vs Valsartan. Spoke to pt and she confirms she is taking Valsartan. Advised we would sign and fax back to Care Luis Miguel. Pt is requesting another 15 or 30 days be sent to [facility], she only has like 5-7 pills left and is concerned about running out before mail service would arrive. Please send short supply and review and sign form to be faxed, form OYD in this encounter Plan of Treatment Upcoming Encounters Date Type Specialty Care Team Description 02/13/2018 Office Visit Family Medicine Coco Hammond DO [address] [place] [phone] 05/29/2018 [facility] [address] [facility] [address] [phone] Health Maintenance Due Date Last Done Comments CKD URINE PROTEIN/CREATININE RATION OR URINE MICROALBUMIN YEARLY USE SMARTSET 91166 01/18/2018 01/18/2017 CKD GFR USE SMARTSET 87524 03/02/201808/31, 07/29/2017, 11/14/2016, Additional history exists CKD HGB USE SMARTSET 01804 07/29/201807/29, 03/31/2016, 08/05/2015, Additional history exists CKD PHOS USE SMARTSET 28469 07/29/201807/18, 03/31/2016, 08/06/2014 Prediabetes-Yearly Hemoglobin A1c 08/24/2018 [...]
--- OUTSIDE RECORDS SUMMARY | 2022-12-12 21:50 | External Medical Summary | Summary of Care ---
Author Name Unknown Organization [place] [address] Care Team Providers Care Wood Preserving Plant Laborer Name Role Phone Ata Chelsea HERNANDEZ Primary Care Provid er Encounter Details Date Type Department Care Team Description 08/24/2018 Orders Only Outcomes Research Department [address] [place] [address] Jhonny Ward CHRA MyCode Research Other*[id number] Allergies Active Allergy Reactions Severity Noted Date Comments Prednisone Other (Please comment) 12/22/2016 Severe depression documented as of this encounter (statuses as of 08/24/2018) Medications Medication Sig Dispensed Refills Start Date End Date Status STOOL SOFTENER 100 MG PO TABS 1 tablet daily as needed for constipation 0 Active ASPIRIN 81 MG PO TABS 2 daily 0 Active RED YEAST RICE 600 MG [...] units Capsule Take by mouth. 0 Active [place] 3 1200 MG CAPS 0 Active Biotin [...] mouth daily. 90 Tab 1 12/01/2017 Active documented as of this encounter (statuses as of 08/24/2018) Active Problems Problem Noted Date DETECT Research Study*[id number] Overview: [facility] DETECT Study: Project # [id number], Director Of Agronomy: Jace Arrington, PhD. SUMMARY: Goal: Establish test [...] contact study staff at ; after hours Director Of Agronomy via the [facility] skoog machine operator . Prediabetes 08/08/2017 Overview: Per Prediabetes [...] as of this encounter (statuses as of 08/24/2018) Resolved Problems Problem Noted Date Resolved Date [...] as of this encounter (statuses as of 08/24/2018) Immunizations Name Administration Dates Next Due PPD [...] file Not on file Not on file Travel History Travel Start Travel End documented as of this encounter Plan of Treatment Scheduled Orders Name Type Priority Associated Diagnoses Orde r Schedule MYCODE SUBSEQUENT ADULT Lab Routine MyCode Research Other*[id number] Every 6 Months for 2 Occurrences starting 08/24/2018 until 09/13/2019 Health Maintenance Due Date Last Done Comments CKD GFR USE SMARTSET 93527 03/02/201808/31, 07/29/2017, 11/14/2016, Additional history exists CKD HGB USE SMARTSET 79931 07/29/201807/29, 03/31/2016, 08/05/2015, Additional history exists CKD PHOS USE SMARTSET 07679 07/29/201807/18, 03/31/2016, 08/06/2014 *DEPRESSION SCREENING, ANNUAL FOR PTS 18 AND OVER 08/14/2018 Prediabetes-Yearly Hemoglobin A1c 08/24/2018 08/24/2017, 08/24/2017 DXA-SCREENING EVERY 7 YRS-USE SMARTSET# 3348 TO ORDER 03/15/2019 03/15/2012 DIABETES SCREEN EVERY 3 YRS-AGE 45 AND ABOVE 08/31/2020 08/31/2017, 08/24/2017, 07/29/2017, Additional history exists DTaP,Tdap,and Td Vaccines (2 - Td) 12/19/2021 12/20/2011 COLONOSCOPY-EVERY 5 YRS AGES 18-100 12/29/2021 12/29/2016, 12/29/2016 PNEUMOCOCCAL ADULT 65 YRS AND OVER Completed 10/13/2016, 07/08/2015, 08/16/2002 Influenza Vaccine (FLU shot) Completed 06/2017, 12/25/2016, 01/22/2016, Additional history exists MENINGOCOCCAL (MENACTRA) Aged Out No longer eligible based on patient's age to complete this topic documented as of this encounter Implants Not on filedocumented as of this encounter Visit Diagnoses Diagnosis MyCode Research Other*[id number] documented in this encounter Advance Directives Documents on File Type Date Recorded Patient Bench Examiner Expl anation Advance Directives and Living Will [...]
--- OUTSIDE RECORDS SUMMARY | 2022-12-12 21:50 | External Medical Summary | Summary of Care ---
Author Name Unknown Organization [place] [address] Care Team Providers Care Family Engagement Specialist Name Role Phone Chelsea Berumen Primary Care Provid er Reason for Visit * Reason Comments Advice Encounter Details Date Type Department Care Team Description 10/04/2019 Telephone Gastroenterology, [facility] [address] [place] [address] Ruslan Kelly MD [address] [facility] [address] [place] [address] [phone] Advice Allergies Active Allergy Reactions Severity Noted Date Comments Prednisone Other (Please comment) 12/22/2016 Severe depression documented as of this encounter (statuses as of 10/04/2019) Medications Medication Sig Dispensed Refills Start Date [...] units Capsule Take by mouth. 0 Active [place] 3 1200 MG CAPS 0 Active Biotin [...] as of this encounter (statuses as of 10/04/2019) Active Problems Problem Noted Date DETECT Research Study*[id number] Overview: DO NOT DELETE [facility] DETECT Study: Project # [id number], Patient Safety Sitter: Jace Arrington, PhD. SUMMARY: Goal: Establish test [...] contact study staff at ; after hours Patient Safety Sitter via the [facility] sheet roller operator . Please contact study team before resolving/deleting from patients problem list. Study phone number: [phone]. Prediabetes 08/08/2017 Overview: Per Prediabetes protocol #1 [...] as of this encounter (statuses as of 10/04/2019) Resolved Problems Problem Noted Date Resolved Date [...] as of this encounter (statuses as of 10/04/2019) Immunizations Name Administration Dates Next Due PPD [...] file Travel History Travel Start Travel End COVID-19 Exposure Response Date Recorded In the last month, have you been in contact with someone who was confirmed or suspected to have Coronavirus / COVID-19? Unable to assess 10/04/2019 1:58 PM EDT documented as of this encounter Miscellaneous Notes * Telephone Encounter - Nury Plascencia RN - 10/04/2019 1:58 PM EDT I called and spoke with the patient. She explains that she has been having a mixture of constipation and diarrhea which has caused feelings of inadequate evacuation and as a result she now has very painful swollen hemorrhoids. She informed me that she takes a mixture of Miralax, peppermint, Kefir, and organic apple cider vinegar twice a day in a drink along with following the Low FODMAPs/Lactose free diet. I offered that perhaps she would like to see general surgery to talk about hemorrhoidal banding. The patient had explained that she has tried "everything" over the counter to relieve her hemorrhoids:Lidocaine 4% gel, sitz baths, OTC external hemorrhoid creams and preparation H suppositories. Pt states, " this is the first time I have had issues with hemorrhoids and I am 79 years old, no I do notwant surgery. I want to know why all the sudden this is happening. I want to know what is going wrong with my diet or what I am taking?!" I transferred patient to [facility] to move up her December appt with Dr. Kelly. * Telephone Encounter - Kirsty Miranda OSA - 10/04/2019 12:01 PM EDT Patient calling requesting to speak with provider concerning Hemorrhoids. Please advise patient at [phone] documented in this encounter Plan of Treatment Upcoming Encounters Date Type Specialty Care Team Description 10/11/2019 Office Visit Gastroenterology Dejah Santos CRNP [address] [address] [phone] 01/02/2020 Office Visit Gastroenterology Ruslan Kelly MD [address] [place] [address] [phone] Health Maintenance Due Date Last Done Comments Zoster Vaccines (2 of 3) 05/15/2007 03/20/2007 CKD GFR USE SMARTSET 79246 03/02/201808/31, 07/29/2017, 11/14/2016, Additional history exists CKD HGB USE SMARTSET 47068 07/29/201807/29, 03/31/2016, 08/05/2015, Additional history exists CKD PHOS USE SMARTSET 93636 07/29/201807/18, 03/31/2016, 08/06/2014 *DEPRESSION SCREENING,ANNUAL FOR PTS 12 AND OVER 08/14/2018 Prediabetes-Yearly Hemoglobin A1c 08/24/2018 08/24/2017, 08/24/2017 *BASIC METABOLIC PANEL (BMP) FOR HTN YEARLY 09/03/2018 DXA-SCREENING EVERY 7 YRS-USE SMARTSET# 3348 TO ORDER 03/15/2019 03/15/2012 Influenza Vaccine (FLU shot) (#1) 2019 12/21/2017, 12/25/2016, 01/22/2016, Additional history exists DIABETES SCREEN EVERY 3 [...] Documents on File Type Date Recorded Patient Puff Iron Operator Expl anation Advance Directives and Living Will [...]
--- OUTSIDE RECORDS SUMMARY | 2022-12-12 21:50 | External Medical Summary | Summary of Care ---
Author Name Unknown Organization [place] [address] Phone Care Team Providers Care Intensive Care Unit Nurse Name Role Phone KayosmarCoco mukherjee Primary Care Provider Reason for Visit * Reason Comments BLOOD PRESSURE CHECK Flu and/or Pneumo I nj PPD SKIN TEST Encounter Details Date Type Department Care Team Description 12/21/2017 Immunization/In jection Ancillary Department, [address] [address] [place], Nurse [address] [place] [id number] Need for prophylactic vaccination and inoculation against influenza*;Screening-p ulmonary TB Allergies Active Allergy Reactions Severity Noted Date [...] 1000 units Capsule Take by mouth. Active [place] 3 1200 MG CAPS Active Biotin 1 [...] Active Problems Problem Noted Date DETECT Research Study*[id number] Overview: [facility] DETECT Study: Project # [id number], Correctional Officer: Jace Arrington, PhD. SUMMARY: Goal: Establish test [...] contact study staff at ; after hours Correctional Officer via the [facility] acid crane operator . Prediabetes 08/08/2017 Overview: Per Prediabetes [...] Not on file as of this encounter Last Filed Vital Signs Vital Sign Reading Time Taken Blood Pressure 169/68 12/21/2017 2:32 PM EDT Pulse 69 12/21/2017 2:32 PM EDT Temperature - - Respiratory Rate - - Oxygen Saturation - - Inhaled Oxygen Concentration - - Weight - - Height - - Body Mass Index - - in this encounter Instructions * Patient Instructions - Tracie Vazquez LPN - 12/21/2017 2:28 PM EDT PATIENT INSTRUCTIONS FOR TUBERCULOSIS TESTING Also known as: Purified Protein Derivative (PPD) Whether you have active TB disease or simply test positive for TB infection, you must see a healthcare professional for evaluation and treatment. Tuberculosis (TB) is a disease that spreads through the air. It can cause serious health problems. TB is on the rise. To protect your health, get tested. Who Should Be Tested? Anyone can be exposed to TB. However, certain people are at higher risk for exposure, especially healthcare professionals, the homeless, and people coming from countries with high TB rates. People whose bodies are less able to fight off infections, such as the elderly and people with HIV and AIDS, are also more likely to get TB. If you’re at risk for exposure, get tested regularly. The TB Skin Test The TB skin test tells you if the tuberculosis bacteria are in your body. Your healthcare professional places a small amount of solution under the skin with a needle to see if a reaction occurs. Keepin mind that although many people are infected with TB, very few develop TB disease. Getting Your TB Test Results Within 2–3 days after the test, you’ll be asked to return to your healthcare professional. Be sure to keep this appointment. Your test results will be evaluated during this visit. In some cases, a second test may be done to confirm results. What Do the Test Results Mean? Negative results mean you likely don’t have the TB bacteria in your body. Positive results mean that you may have been infected with the TB bacteria. This doesn’t necessarily mean you have active TB disease. More tests, such as chest x-rays, are needed to find out if youhave TB disease. © 2306-8700 [place] [address]. All rights reserved. This information is not intended as a substitute for professional medical care. Always follow your healthcare professional's instructions. in this encounter Progress Notes * Tracie Vazquez LPN - 12/21/2017 2:27 PM EDT PRE - ADMINISTRATION DOCUMENTATION Are you allergic to latex? No Are you experiencing any cold symptoms or fever? No Have you had Guillain-Garrett Syndrome (an illness that causes paralysis)? No Have you had the flu shot in the past? YES Have you ever had a reaction to the flu shot? No Tracie Vazquez LPN, 12/21/2017 2:26 PM Immunization Administration Documentation Time Out Procedure Performed: Yes Patient Identified (Ask Name/Date of ): Yes Does the patient have a fever greater than 101 degrees today? No Patient allergic to latex? No C Stock: No Immunization(s) verified: Yes, Immunization Name: Flu, VIS Sheet(s) given: Yes Verified Side and Site: Yes Verified Shot(s) with Parent(s)/Patient: Yes Pt here for PPD administration. Has patient ever had a positive PPD Screening Test? No Has patient ever had the BCG tuberculosis vaccine? No If the patient responds yes to any of the questions, they are NOT eligible for a PPD. DO NOT administer the PPD Screening Test and Notify the provider. Time Out Procedure Performed: Yes Patient Identified (Ask Name/Date of ): Yes Injection(s) verified: Yes, Injection Name: ppd Verified Side and Site: Yes Verified Shot(s) with Parent(s)/Patient: Yes PPD applied at 2:27 PM and patient tolerated well. Patient to return to clinic in 48 hours for PPD Reading. in this encounter Plan of Treatment Upcoming Encounters Date Type Specialty Care Team Description 02/13/2018 Office Visit Family Medicine Coco Darnell DO [address] [id number] 05/29/2018 Office Visit Dermatology Laurel Arnett MD [address] [facility] [place] [address] [phone] Health Maintenance Due Date Last Done Comments Influenza Vaccine (FLU shot) (#1) 2017 12/25/2016, 01/22/2016, 11/21/2014, Additional history exists CKD URINE PROTEIN/CREATININE RATION OR URINE MICROALBUMIN YEARLY USE SMARTSET 25967 01/18/2018 01/18/2017 CKD GFR USE SMARTSET 17915 03/02/201808/31, 07/29/2017, 11/14/2016, Additional history exists CKD HGB USE SMARTSET 10135 07/29/201807/29, 03/31/2016, 08/05/2015, Additional history exists CKD PHOS USE SMARTSET 53829 07/29/201807/18, 03/31/2016, 08/06/2014 Prediabetes-Yearly Hemoglobin A1c 08/24/2018 018, 08/24/2017 DXA-SCREENING EVERY 7 YRS-US E SMARTSET# 3348 TO ORDER 03/15/2019 03/15/2012 DIABETES SCREEN EVERY 3 YRS- AGE 45 AND ABOVE 08/31/2020 08/31/2017, 08/24/2017, 07/29/2017, Additional history exists DTaP,Tdap,and Td Vaccines (2 - Td) 12/19/20212011 COLONOSCOPY-EVERY 5 YRS AGES 18-100 12/29/2021 12/29/2016, 12/29/2016 PNEUMOCOCCAL ADULT 65 YRS AND OVER Completed 10/13/2016, 07/08/2015, 08/16/2002 as of this encounter Implants Not on fileas of this encounter Visit Diagnoses Diagnosis Need for prophylactic vaccin ation and inoculation against influenza - Primary Screening-pulmonary TB Screening examination for pulmonary tuberculosis in this encounter
--- OUTSIDE RECORDS SUMMARY | 2022-12-12 21:50 | External Medical Summary | Summary of Care ---
Author Name Unknown Organization [place] [address] Care Team Providers Care Aoc Airspace Control Officer Name Role Phone Coco Darnell DO Primary Care Provider [phone] Encounter Details Date Type Department Care Team Description 03/06/2018 Scan Encounter Unspecified Department <No scans attached> Allergies Active Allergy Reactions Severity Noted Date Comments Prednisone Other (Please comment) 12/22/2016 Severe depression as of this encounter Medications Medication Sig Dispensed Refills Start Date [...] 01/22/2016 Active DULoxetine (CYMBALTA) 20 MG CPEP 0 04/30/2016 Active dicyclomine (BENTYL) 10 MG CapsuleIndications: Irritable bowel syndrome with both constipation and diarrhea Take 1 Cap by mouth 4 times a day as needed for Cramping. For abdominal pain 120 Cap 5 10/13/2016 Active Cholecalciferol (VITAMIN D-3) 1000 units Capsule Take by mouth. 0 Active [place] 3 1200 MG CAPS 0 Active Biotin [...] hours as needed for Pain. 0 Active tretinoin (RETIN-A) 0.05 % creamIndications:Fa cial rhytids Apply topically to affected area at bedtime. Apply a thin layer to face at bedtime 45 g 2 11/28/2017 Active valsartan (DIOVAN) 80 MG Tablet Take 1 Tab by mouth daily. 90 Tab 1 12/01/2017 Active valsartan (DIOVAN) 80 MG Tablet Take 1 Tab by mouth daily. 30 Tab 0 12/27/2017 Active as of this encounter Active Problems Problem Noted Date DETECT Research Study*[id number] Overview: [facility] DETECT Study: Project # [id number], Line Manager: Jace Arrington, PhD. SUMMARY: Goal: Establish [...] contact study staff at ; after hours Line Manager via the [facility] paint striping machine operator . Prediabetes 08/08/2017 Overview: Per [...] file Travel History Travel Start Travel End as of this encounter Plan of Treatment Upcoming Encounters Date Type Specialty Care Team Description 05/29/2018 Office Visit Dermatology Laurel Arnett MD [address] [place] [address] [phone] Health Maintenance Due Date Last Done Comments CKD URINE PROTEIN/CREATININE RATION OR URINE MICROALBUMIN YEARLY USE SMARTSET 93854 01/18/2018 01/18/2017 CKD GFR USE SMARTSET 19643 03/02/201808/31, 07/29/2017, 11/14/2016, Additional history exists CKD HGB USE SMARTSET 21193 07/29/201807/29, 03/31/2016, 08/05/2015, Additional history exists CKD PHOS USE SMARTSET 42551 07/29/201807/18, 03/31/2016, 08/06/2014 Prediabetes-Yearly Hemoglobin A1c 08/24/2018 [...] Implants Not on fileas of this encounter Advance Directives Patient has advance care planning documents on file. For more information, please contact: [address] [place] [phone]
--- OUTSIDE RECORDS SUMMARY | 2022-12-12 21:50 | External Medical Summary | Summary of Care ---
Author Name Unknown Organization [place] [address] Phone Care Team Providers Care Embossing Press Operator Name Role Phone Coco Darnell DO Primary Care Provider Reason for Visit * Reason Comments FYI Encounter Details Date Type Department Care Team Description 12/20/2017 Telephone [facility] [place] [address] [place] [address] Coco Darnell DO [address] [place], [place] [id number] FYI Allergies Active Allergy Reactions Severity Noted [...] 1000 units Capsule Take by mouth. Active [place] 3 1200 MG CAPS Active Biotin 1 [...] Active Problems Problem Noted Date DETECT Research Study*[id number] Overview: [facility] DETECT Study: Project # [id number], Yacht Builder: Jace Arrington, PhD. SUMMARY: Goal: Establish test [...] contact study staff at ; after hours Yacht Builder via the [facility] rewind operator . Prediabetes 08/08/2017 Overview: Per Prediabetes [...] Name Dates Previously Given Next Due PPD 01/16/2017, 6,02/20/2015, Pneumococcal Conjugate Vacc, 13 Valent (Prevnar) 07/08/2015 Pneumococcal Polysaccharide PPV23 (Pneumovax) 10/13/2016,08/16/2002 Seasonal Influenza, Cell Cul ture, 18 Yrs & Older 02/01/2013 Seasonal Influenza, Quadriva lent, No Preserve, IM [...] encounter Miscellaneous Notes * Telephone Encounter - Madhuri Winters OSA - 12/20/2017 1:01 PM EDT Patient called, wanted to speak to [place] composite layup worker. Was warm transferred to her . in this encounter Plan of Treatment Upcoming Encounters Date Type Specialty Care Team Description 12/20/2017 Nurse Only Nurse Eli [address] [address] [phone] 02/13/2018 Office Visit Family Medicine Coco Darnell DO [address] [address] [phone] 05/29/2018 Office Visit Dermatology Laurel Arnett MD [address] [place] [address], [place] [address] [phone] Health Maintenance Due Date Last Done Comments Influenza Vaccine (FLU shot) (#1) 2017 12/25/2016, 01/22/2016, 11/21/2014, Additional history exists CKD URINE PROTEIN/CREATININE RATION OR URINE MICROALBUMIN YEARLY USE SMARTSET 96657 01/18/2018 01/18/2017 CKD GFR USE SMARTSET 06995 03/02/201808/31, 07/29/2017, 11/14/2016, Additional history exists CKD HGB USE SMARTSET 33523 07/29/201807/29, 03/31/2016, 08/05/2015, Additional history exists CKD PHOS USE SMARTSET 27685 07/29/201807/18, 03/31/2016, 08/06/2014 Prediabetes-Yearly Hemoglobin A1c 08/24/2018 [...]
--- OUTSIDE RECORDS SUMMARY | 2022-12-12 21:50 | External Medical Summary | Summary of Care ---
Author Name Unknown Organization [place] [address] Care Team Providers Care Lobster Man Name Role Phone Chelsea Berumen Primary Care Provid er Reason for Visit * Reason Comments eRx-Medication Refill Encounter Details Date Type Department Care Team Description 10/17/2018 Refill [facility] [address] [place] [address] Coco Darnell DO [address] [place] [address] [phone] Encounter for long-term (current) drug use* Allergies Active Allergy Reactions Severity Noted Date Comments Prednisone Other (Please comment) 12/22/2016 Severe depression documented as of this encounter (statuses as of 10/17/2018) Medications Medication Sig Dispensed Refills Start Date [...] units Capsule Take by mouth. 0 Active [place] 3 1200 MG CAPS 0 Active Biotin [...] as of this encounter (statuses as of 10/17/2018) Active Problems Problem Noted Date DETECT Research Study*[id number] Overview: [facility] DETECT Study: Project # [id number], Cane Weigher: Jace Arrnigton, PhD. SUMMARY: Goal: Establish test characteristics (sensitivity, [...] contact study staff at ; after hours Cane Weigher via the [facility] assistant plant control operator . Prediabetes 08/08/2017 Overview: Per Prediabetes [...] as of this encounter (statuses as of 10/17/2018) Resolved Problems Problem Noted Date Resolved Date [...] as of this encounter (statuses as of 10/17/2018) Immunizations Name Administration Dates Next Due PPD 12/21/2017, 7,01/29/2016,02/20,02/10/2015 Pneumococcal Conjugate Vacc, 13 Valent (Prevnar) 07/08/2015 Pneumococcal Polysaccharide PPV23 (Pneumovax) 10/13/2016,08/16/2002 Seasonal Influenza, Cell Cul turangelica, 18 Yrs & Older 02/01/2013 Seasonal Influenza, [...] Travel End documented as of this encounter Miscellaneous Notes * Telephone Encounter - Samreen Holguin RPh - 10/17/2018 9:54 PM EDT Refused Prescriptions: Disp Refills valsartan (DIOVAN) 80 MG Tablet [Pharmacy *90 Tab 1 Sig: TAKE 1 TABLET DAILYRefused By: SAMREEN HOLGUIN for Refusal: Managed by another physicianReason for Refusal Comment: Ata gonzalez * Telephone Encounter - Samreen Holguin RPh - 10/17/2018 9:51 PM EDEduard Berumen is listed as pt PCP. Thanks, Samreen Holguin, PharmD, MS Clinical Pharmacist Telepharmacy 10/17/2018 9:51 PM * Telephone Encounter - Leisa Siddiqi CPhT - 10/17/2018 3:35 PM EDT Pending Prescriptions: Disp Refills valsartan (DIOVAN) 80 MG Tablet [Pharmacy*90 Tab 1 Sig: TAKE 1 TABLET DAILY * Telephone Encounter - Leisa Siddiqi CPhT - 10/17/2018 3:33 PM EDT BMP pended for pt being on valsartan Pending Prescriptions: Disp Refills valsartan (DIOVAN) 80 MG Tablet [Pharmacy*90 Tab 1 Sig: TAKE 1 TABLET DAILY Last Office Visit: 11/24/2017 Next Office Visit: No Future Appointments If no future appointments scheduled, and last appointment is greater than a year ago, please schedule patient for a follow-up appointment Last date the medication was ordered: 12/01/2017 Patient Phone Numbers Labs: Lab Results Component Value Date/Time CREAT 1.1 (H) 08/31/2017 02:13 PM POTASSIUM 4.4 08/31/2017 02:13 PM TSH 1.69 08/24/2017 01:37 PM LDLCALC 105 07/29/2017 09:31 AM ALT 19 08/31/2017 02:13 PM HGBA1C 5.8 08/24/2017 01:37 PM documented in this encounter Plan of Treatment Health Maintenance Due Date Last Done Comments CKD GFR USE SMARTSET 50113 03/02/201808/31, 07/29/2017, 11/14/2016, Additional history exists CKD HGB USE SMARTSET 78406 07/29/201807/29, 03/31/2016, 08/05/2015, Additional history exists CKD PHOS USE SMARTSET 80524 07/29/201807/18, 03/31/2016, 08/06/2014 *DEPRESSION SCREENING, ANNUAL FOR PTS 18 AND OVER 08/14/2018 Prediabetes-Yearly Hemoglobin A1c 08/24/2018 08/24/2017, 08/24/2017 *BASIC METABOLIC PANEL (BMP) FOR HTN YEARLY 09/03/2018 Influenza Vaccine (FLU shot) (#1) 2018 12/21/2017, 12/25/2016, 01/22/2016, Additional history exists DXA-SCREENING EVERY 7 YRS-USE SMARTSET# 3348 TO ORDER 03/15/2019 03/15/2012 DIABETES SCREEN EVERY 3 YRS-AGE 45 AND ABOVE 08/31/2020 08/31/2017, 08/24/2017, 07/29/2017, Additional history exists DTaP,Tdap,and Td Vaccines (2 - Td) 12/19/2021 12/20/2011 COLONOSCOPY-EVERY 5 YRS AGES 18-100 12/29/2021 12/29/2016, 12/29/2016 PNEUMOCOCCAL ADULT 65 YRS AND OVER Completed 10/13/2016, 07/08/2015, 08/16/2002 MENINGOCOCCAL (MENACTRA) Aged Out No longer eligible based on patient's age to complete this topic documented as of this encounter Implants Not on filedocumented as of this encounter Visit Diagnoses Diagnosis Encounter for long-term (current) drug use- Primary Encounter for long-term (current) use of other medications documented in this encounter Advance Directives Documents on File Type Date Recorded Patient [employer] Expl anation Advance Directives and Living Will [...]
--- OUTSIDE RECORDS SUMMARY | 2022-12-12 21:50 | External Medical Summary | Summary of Care ---
Author Name Unknown Organization [place] [address] Care Team Providers Care Head Housekeeper Name Role Phone Chelsea Berumen MARY Primary Care Provid er Reason for Visit * Reason Comments Follow Up Red lesion right kaiden ulder, bernardo around her mouth, itchy lesion on her back. Encounter Details Date Type Department Care Team Description 05/29/2018 Office Visit Dermatology [facility] [address] [place] [address] Laurel Arnett MD [address] [place] [address] [phone] Neoplasm of uncertain behavior*; Seborrheic keratosis Allergies Active Allergy Reactions Severity Noted Date Comments Prednisone Other (Please comment) 12/22/2016 Severe depression documented as of this encounter (statuses as of 05/29/2018) Medications Medication Sig Dispensed Refills Start Date [...] 0 04/30/2016 Active dicyclomine (BENTYL) 10 MG CapsuleIndication s:Irritable bowel syndrome with both constipation and diarrhea Take 1 Cap by mouth 4 times a day as needed for Cramping. For abdominal pain 120 Cap 5 10/13/2016 Active Cholecalciferol (VITAMIN D-3) 1000 units Capsule Take by mouth. 0 Active [place] 3 1200 MG CAPS 0 Active Biotin 1 MG Capsule 0 Active Ascorbic Acid (VITAMIN C) 1000 MG Tablet Take 1,000 mg by mouth daily. 0 Active fluticasone (FLONASE) 50 MCG/ACT nasal sprayIndications: [...] mouth daily. 30 Tab 0 12/27/2017 Active tretinoin (RETIN-A) 0.05 % creamIndications: Facial rhytids Apply topically to affected area at bedtime. Apply a thin layer to face at bedtime 45 g 2 11/28/2017 05/30/19 19 Discontinued documented as of this encounter (statuses as of 05/29/2018) Active Problems Problem Noted Date DETECT Research Study*[id number] Overview: [facility] DETECT Study: Project # [id number], Extractor Filler: Jace Arrington, PhD. SUMMARY: Goal: Establish test [...] contact study staff at ; after hours Extractor Filler via the [facility] hospital butane compressor operator . Prediabetes 08/08/2017 Overview: Per Prediabetes [...] as of this encounter (statuses as of 05/29/2018) Resolved Problems Problem Noted Date Resolved Date [...] as of this encounter (statuses as of 05/29/2018) Immunizations Name Dates Previously Given Next Due [...] Travel End documented as of this encounter Patient Instructions * Patient Instructions* Laurel Arnett MD - 05/29/2018 2:11 PM EDT Skin Surgery Wound Care Instructions CHANGE DRESSING ONCE DAILY 1. Wash hands and remove the original dressing(s) in 12-24 hours. 2. Gently clean wound(s) with soap and water. Rinse with water and pat the wound dry. 3. Apply a thin layer of Vaseline ointment with a Q-tip. 4. Cover with a bandage if area(s) is not on the face or scalp. A dressing is not required on the face or scalp. Use non-adherent dressing and paper tape if you are sensitive to band-aid adhesive sensitive. WHAT TO EXPECT AFTER SURGERY: 1. Swelling and redness may occur around the wound for several days. If the procedure(s) was around the eye, skin around the eyes is often quite swollen and discolored for several days. 2. Shave biopsy sites will have a yellow center and thin red rim surrounding it. 3. Drainage is to be expected. The drainage may be yellow-green and have a slight odor. As long as the wound itself is healing, you do not have to be concerned about the drainage. 4. If bleeding occurs, apply FIRM CONSTANT PRESSURE to the dressing with fingertips and a dry, clean wash cloth for 20 - 30 minutes. No peeking to see if bleeding has stopped. 5. If you have any concerns about the healing wound, please call at: [place] office or [facility] office documented in this encounter Progress Notes * Laurel Arnett MD - 05/29/2018 2:03 PM EDT SUBJECTIVE: HPI: Laurel Rios is a 78 year old female. Pt complains of sore spot Location is at the right base in neck for a duration of about several months Associated symptoms include not healing with a moderate severity and constant timing. Onset slow. No attempted treatments. She states she has bumps around the mouth she would like removed 2014 - Dr. Holliday CO2 laser She is currently not using tretinoin Using JOSE ARMANDO cream History of [facility] REVIEW OF SYSTEMS: SKIN: No other new or changing moles. HEME/LYMPH: No new or enlarging lumps or bumps. CONSTITUTIONAL: No nausea, vomiting, fevers, chills, diarrhea. No recent unintended weight loss, night sweats, appetite or malaise. Past Medical History: Diagnosis Date • Cervicalgia [...] trigger point injections • Vitamin D deficiency FAMILY HISTORY: Skin CA: None Skin Disorders: none SOCIAL HISTORY: Social History Tobacco Use • Smoking status: Former Smoker Last attempt to quit: 03/19/1988 Years since quittin.2 • Smokeless tobacco: Never Used • Tobacco comment: quit 1987 Substance Use Topics • Alcohol use: No MEDICA TIONS: Current Outpatient Medications Medication Sig Dispense Refill • valsartan (DIOVAN) 80 MG Tablet Take 1 Tab by mouth daily. 30 Tab 0 • valsartan (DIOVAN) 80 MG Tablet Take [...] 1000 units Capsule Take by mouth. • [place] 3 1200 MG CAPS • dicyclomine (BENTYL) 10 MG Capsule Take 1 Cap by mouth 4 times a day as needed for Cramping. For abdominal pain 120 Cap 5 • DULoxetine (CYMBALTA) 20 MG CPEP • gabapentin (NEURONTIN) 100 MG Capsule Take 3 [...] MG/60GM EX CREA apply once daily • ASPIRIN 81 MG PO TABS 2 daily • RED YEAST RICE 600 MG PO CAPS 1 daily • STOOL SOFTENER 100 MG PO TABS 1 tablet daily as needed for constipation ALLERG Y: Prednisone OBJECTIVE: GEN: Healthy, alert, no distress, appears oriented, pleasant and cooperative. SKIN: Detailed exam of hair, face including lids and lips, neck, chest, abdomen, back are normal except: 1. Face - two 4mm pink papules around the mouth 2 Chest and back = brown keratotic plaques with a stuck on appearance and horn cysts 3. right base of the neck - 7mm pink macule - basal cell carcinoma ASSESS MENT/PLAN: 1.(D48.9) Neoplasm of uncertain behavior (primary encounter diagnosis) Plan: DERM IMAGE (SITE), TANGENTIAL BIOPSY OF SKIN; SINGLE LESION, SURGICAL PATHOLOGY right base of the neck - 7mm pink macule - basal cell carcinoma Biopsy of the lesion noted above to establish and confirm diagnosis. The procedure, risks, benefits, alternatives and expected outcomes were discussed with the patient and verbal consent was obtained. Patient identified, procedure verified, site identified and verified. Timeout confirmed immediately prior to procedure. Area prepped with alcohol and anesthetized with 0.5% lidocaine with epinephrine at 1:200,000 concentration. Biopsy of lesion performed. 20% AlCl and bandaging applied. Specimen sent to pathology. Patient instructed in routine post-op care. * area treated with curettage after biopsy Patient Phone Numbers (L82.1) Seborrheic keratosis Plan: ABCD's discussed. Handout given with images of moles and melanoma. Regular skin examination, self-examination, and sun protection advised and discussed. FU prn any changing mole. Benign nevi around mouths - Benign nature was discussed and no further intervention needed. Advisedto call with any changes. Follow-up: 1 year There were no barriers tolearning and no other pain was related to today's visit. The patient and/or person accompanying patient demonstrates understanding of the visit and treatment. Herve Arnett MD 05/29/2018 2:19 PM Ref: SELF[[id number]] [address] STRE[address] ADDRESS AVAILABLE None (office) None (fax) PCP: MITUL HAMMOND [address] [place] [address] [phone] documented in this encounter Nursing Notes * Maria Shepard OSA - 05/29/2018 1:58 PM EDT Last Office Visit: 11/28/2017 Patient identified by name and date of . Do you have any concerns about pain management for today's visit? No Living Will or Advance Directive for Health Care as noted on problem list. [employer] is a way you can talk to your provider online through e-mail. Would you like to sign up? I can activate it for you? ALREADY ACTIVE Chief Complaint Patient presents with • Follow Up Red lesion right shoulder, bernardo around her mouth, itchy lesion on her back. documented in this encounter Plan of Treatment Scheduled Tests Name Priority Associated Diagnoses Order S chedule SURGICAL PATHOLOGY Routine Neoplasm of uncertain behavior Ordered: 05/29/2018 Health Maintenance Due Date Last Done Comments CKD GFR USE SMARTSET 55793 03/02/201808/31, 07/29/2017, 11/14/2016, Additional history exists CKD HGB USE SMARTSET 27150 07/29/201807/29, 03/31/2016, 08/05/2015, Additional history exists CKD PHOS USE SMARTSET 35979 07/29/201807/18, 03/31/2016, 08/06/2014 Prediabetes-Yearly Hemoglobin A1c 08/24/2018 08/24/2017, 08/24/2017 DXA-SCREENING [...] as of this encounter Visit Diagnoses Diagnosis Neoplasm of uncertain behavior- Primary Neoplasm of uncertain behavior, site unspecified Seborrheic keratosis Other seborrheic keratosis documented in this encounter Advance Directives Patient has advance care planning documents on file. For more information, please contact: [place] [phone]
--- OUTSIDE RECORDS SUMMARY | 2022-12-12 21:50 | External Medical Summary | Summary of Care ---
Author Name Unknown Organization [place] [address] Phone Care Team Providers Care Metal Crafts Teacher Name Role Phone Coco Darnell DO Primary Care Provider Encounter Details Date Type Department Care Team Description 12/23/2017 Nurse Only [place] [facility] [address] [facility] [place] [address] Wkend/Gw, Nurse Fam Prac [address] [facility] [place] [address] Allergies Active Allergy Reactions Severity Noted Date [...] 1000 units Capsule Take by mouth. Active Nixa 3 1200 MG CAPS Active Biotin 1 [...] Active Problems Problem Noted Date DETECT Research Study*[id number] Overview: [facility] DETECT Study: Project # [id number], Machine Lay Out Worker: Jace Arrington, PhD. SUMMARY: Goal: Establish [...] contact study staff at ; after hours Machine Lay Out Worker via the [facility] hospital pig machine crane operator . Prediabetes 08/08/2017 Overview: Per [...] Vital Sign Reading Time Taken Blood Pressure 142/68 12/23/2017 1:27 PM EDT Pulse 68 12/23/2017 1:27 PM EDT Temperature - - Respiratory Rate - - Oxygen Saturation - - Inhaled Oxygen Concentration - - Weight - - Height - - Body Mass Index - - in this encounter Plan of Treatment Upcoming Encounters Date Type Specialty Care Team Description 02/13/2018 Office Visit Family Medicine Coco Darnell DO [address] [id number] 05/29/2018 Office Visit Dermatology Laurel Arnett MD [address] [facility] [place] [address] [phone] Health Maintenance Due Date Last Done Comments CKD URINE PROTEIN/CREATININE RATION OR URINE MICROALBUMIN YEARLY USE SMARTSET 87855 01/18/2018 01/18/2017 CKD GFR USE SMARTSET 26594 03/02/201808/31, 07/29/2017, 11/14/2016, Additional history exists CKD HGB USE SMARTSET 96300 07/29/201807/29, 03/31/2016, 08/05/2015, Additional history exists CKD PHOS USE SMARTSET 35393 07/29/201807/18, 03/31/2016, 08/06/2014 Prediabetes-Yearly Hemoglobin A1c 08/24/2018 [...]
--- OUTSIDE RECORDS SUMMARY | 2022-12-12 21:50 | External Medical Summary | Summary of Care ---
Author Name Unknown Organization [place] [address] Phone Care Team Providers Care Precinct Police Sergeant Name Role Phone Coco Darnell DO Primary Care Provider Encounter Details Date Type Department Care Team Description 12/20/2017 Orders Only [facility] [place] [address] [place] [address] Coco Darnell DO [address] [place] [address] [phone] Allergies Active Allergy Reactions Severity Noted Date [...] 1000 units Capsule Take by mouth. Active [place] 3 1200 MG CAPS Active Biotin 1 [...] Active Problems Problem Noted Date DETECT Research Study*[id number] Overview: [facility] DETECT Study: Project # [id number], Orthopedic Physician Assistant: Jace Arrington, PhD. SUMMARY: Goal: Establish test [...] study staff at ; after hours Orthopedic Physician Assistant via the [facility] hospital pig furnace operator . Prediabetes 08/08/2017 Overview: Per Prediabetes [...] Not on file as of this encounter Plan of Treatment Upcoming Encounters Date Type Specialty Care Team Description 02/13/2018 Office Visit Family Medicine Coco Darnell DO [address] [phone] 05/29/2018 Office Visit Dermatology Laurel Arnett MD [address] [place], [place] [address] [address] [phone] Pending Results Name Priority Associated Diagnoses Date/Ti me MAMMOGRAM SCREENING BILATERAL Routine 12/18/2017 12:00 AM EDT Health Maintenance Due Date Last Done Comments Influenza Vaccine (FLU shot) (#1) 2017 12/25/2016, 01/22/2016, 11/21/2014, Additional history exists CKD URINE PROTEIN/CREATININE RATION OR URINE MICROALBUMIN YEARLY USE SMARTSET 20330 01/18/2018 01/18/2017 CKD GFR USE SMARTSET 50070 03/02/201808/31, 07/29/2017, 11/14/2016, Additional history exists CKD HGB USE SMARTSET 39844 07/29/201807/29, 03/31/2016, 08/05/2015, Additional history exists CKD PHOS USE SMARTSET 08429 07/29/201807/18, 03/31/2016, 08/06/2014 Prediabetes-Yearly Hemoglobin A1c 08/24/2018 [...]
--- OUTSIDE RECORDS SUMMARY | 2022-12-12 21:50 | External Medical Summary | Summary of Care ---
Author Name Unknown Organization [place] [address] Care Team Providers Care Roadway Engineer Name Role Phone Chelsea Berumen Primary Care Provid er Reason for Visit * Reason Comments Follow Up Abd bloating, Hx of IBS, hemorrhoids Encounter Details Date Type Department Care Team Description 10/11/2019 Office Visit Gastroenterology, [facility] [address] [facility] [place] [address] Dejah Santos CRNP [address] [place] [address] [phone] Rectal bleeding*; Hemorrhoids, unspecified hemorrhoid type Allergies Active Allergy Reactions Severity Noted Date Comments Prednisone Other (Please comment) 12/22/2016 Severe depression documented as of this encounter (statuses as of 10/11/2019) Medications Medication Sig Dispensed Refills Start Date [...] units Capsule Take by mouth. 0 Active [place] 3 1200 MG CAPS 0 Active Biotin 1 MG Capsule 0 Active Ascorbic Acid (VITAMIN C) 1000 MG Tablet Take 1,000 mg by mouth daily. 0 Active fluticasone (FLONASE) 50 MCG/ACT nasal sprayIndications:P ost-nasal drip,Cough Administer 2 Sprays into each nostril daily. 1 Inhaler 5 05/18/2017 Active Additional Information Patient not taking. Reported on 10/11/2019 3:31 PM MEDICAL INSTRUCTIONS Use as directed. Bi-Est estrogen [...] mouth 3 times a day. 0 Active ASPIRIN 81 MG PO TABS 2 daily 0 0 Discontinue d(Patient preference/ discontinua tion) documented as of this encounter (statuses as of 10/11/2019) Active Problems Problem Noted Date DETECT Research Study*[id number] Overview: DO NOT DELETE [facility] DETECT Study: Project # [id number], Recreation Instructor: Jace Arrington, PhD. SUMMARY: Goal: Establish test [...] contact study staff at ; after hours Recreation Instructor via the [facility] hospital suppository molding machine operator . Please contact study team before resolving/deleting from patients problem list. Study phone number: [phone]. Prediabetes 08/08/2017 Overview: Per Prediabetes protocol #1 [...] as of this encounter (statuses as of 10/11/2019) Resolved Problems Problem Noted Date Resolved Date [...] as of this encounter (statuses as of 10/11/2019) Immunizations Name Administration Dates Next Due PPD [...] or suspected to have Coronavirus / COVID-19? No / Unsure 10/11/2019 3:12 PM EDT documented as of this encounter Last Filed Vital Signs Vital Sign Reading Time Taken Comments Blood Pressure 158/78 10/11/2019 3:25 PM EDT Pulse 94 10/11/2019 3:25 PM EDT Temperature 37.2 °C (99 °F) 10/11/2019 3:25 PM EDT Respiratory Rate - - Oxygen Saturation 92% 10/11/2019 3:25 PM EDT Inhaled Oxygen Concentration - - Weight 71.9 kg (158 lb 8 oz) 10/11/2019 3:25 PM EDT Height - - Body Mass Index 27.21 07/11/2018 2:03 PM EDT documented in this encounter Progress Notes * Dejah Santos CRNP - 10/11/2019 3:30 PM EDT DATE OF SERVICE: 10/11/2019 REFERRING PHYSICIAN: MARY Gorman CC: GI concerns Office Visit 10/11/2019 : New patient to [...] performed by Ruslan Kelly MD at [facility] • GENITAL SURGERY PROCEDURE NEC 1982 at age 42, 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 • [place] 3 1200 MG CAPS • DULoxetine (CYMBALTA) 20 MG CPEP 30 [...] by mouth daily. 90 Tab 3 • RED YEAST RICE 600 MG PO CAPS 1 daily • STOOL SOFTENER 100 MG PO TABS 1 tablet daily as needed for constipation fluticasone (FLONASE) 50 MCG/ACT nasal spray Administer 2 Sprays into each nostril daily. (Patient not taking: Reported on 10/11/2019) 1 Inhaler 5 dicyclomine (BENTYL) 10 MG Capsule Take 1 Cap by mouth 4 times a day as needed for Cramping. For abdominal pain 120 Cap 5 PROGESTERONE 1000 MG/60GM EX CREA apply once daily REVIEW OF SYSTEMS: No lightheadedness or dizziness No fevers, chills, sweats No oral ulcers, trouble swallowing No chest pain, palpitations, syncope No cough, shortness of breath, exertional dyspnea No rashes or other skin lesions No new joint pain, swelling, myalgias No edema No bleeding tendencies or excessive bruising All other findings negative. EXAM: BP 158/78 | Pulse 94 | Temp 99 | Wt 158 lbs 8 oz (71.895kg) | BMI 27.21 kg/m² | BSA 1.8 m² | EuA213% GENERAL: Well developed and well nourished in no acute distress. SKIN: No rashes, ulcers, jaundice HEENT: Normocephalic, sclera clear NECK: Supple ABDOMEN: Normal bowel sounds, soft and non-tender RECTAL: Monitored by Dulce Rae LPN. External skin tag. No inflamed or thrombosed external hemorrhoids. Internal examination was limited due to patient comfort but no appreciation of mass/lesion EXTREMITIES: No palmar erythema, no ankle edema NEURO: No lateralizing findings DIAGNOSTIC TEST: Hgb Hct Covid-19 Colonoscopy, diagnostic (rectum) ASSESSMENT AND PLAN: 79 year old female with IBS, concern for hemorrhoidal flare w/ rectal pressure/pain and intermittent bleeding. External examination with skin tag but no evidence of thrombosed hemorrhoids. - Labs - Request records - Continue supportive measures - Fiber - Good water intake - SITZ bath - PrepH suppository - Witch Sheryl pads as needed - Colonoscopy 2021 but can arrange sooner if needed for diagnostic purposed (this was ordered with a pre-endo covid) - ED for emergencies - Please call with any questions or concerns RETURN TO CLINIC: PRN, she has a scheduled appt in December with MARY Perez 10/11/2019 3:44 PM R: 10/11/2019 documented in this encounter Nursing Notes * Dulce Rae LPN - 10/11/2019 3:26 PM EDT Patient identified by name and date of . Chief Complaint Patient presents with • Follow Up Abd bloating, Hx of IBS, hemorrhoids documented in this encounter Plan of Treatment Upcoming Encounters Date Type Specialty Care Team Description 01/02/2020 Office Visit Gastroenterology Ruslan Kelly MD [address] [place] [address] [phone] Scheduled Orders Name Type Priority Associated Diagnoses Orde r Schedule HGB Lab Routine Rectal bleeding Hemorrhoids, unspecified hemorrhoid type Expected: 10/11/2019, Expires: 11/10/2020 HCT Lab Routine Rectal bleeding Hemorrhoids, unspecified hemorrhoid type Expected: 10/11/2019, Expires: 11/10/2020 COLONOSCOPY, DIAGNOSTIC (RECTUM) Procedures Routine Rectal bleeding Hemorrhoids, unspecified hemorrhoid type Ordered: 10/11/2019 COVID-19 Lab Routine Rectal bleeding Hemorrhoids, unspecified hemorrhoid type Expected: 10/12/2019 (Approximate), Expires: 12/12/2019 Health Maintenance Due Date Last Done Comments Zoster Vaccines (2 of 3) 05/15/2007 03/20/2007 CKD GFR USE SMARTSET 61152 03/02/201808/31, 07/29/2017, 11/14/2016, Additional history exists CKD HGB USE SMARTSET 42049 07/29/201807/29, 03/31/2016, 08/05/2015, Additional history exists CKD PHOS USE SMARTSET 62952 07/29/201807/18, 03/31/2016, 08/06/2014 *DEPRESSION SCREENING,ANNUAL FOR PTS [...] as of this encounter Visit Diagnoses Diagnosis Rectal bleeding- Primary Hemorrhage of rectum and anus Hemorrhoids, unspecified hemorrhoid type documented in this encounter Advance Directives Documents on File Type Date Recorded Patient Seat Cover Maker Expl anation Advance Directives and Living Will [...]
--- OUTSIDE RECORDS SUMMARY | 2022-12-12 21:50 | External Medical Summary | Summary of Care ---
Author Name Unknown Organization [place] [address] Phone Care Team Providers Care Factory Superintendent Name Role Phone Coco Darnell DO Primary Care Provider [phone] Reason for Visit * Reason Comments ORDER REQUEST Encounter Details Date Type Department Care Team Description 12/20/2017 Telephone [facility] [address] [place] [address] Coco Darnell DO [address] [place], [place] [id number] ORDER REQUEST Allergies Active Allergy Reactions Severity Noted Date [...] 1000 units Capsule Take by mouth. Active [place] 3 1200 MG CAPS Active Biotin 1 [...] Active Problems Problem Noted Date DETECT Research Study*[id number] Overview: [facility] DETECT Study: Project # [id number], Director Revenue: Jace Arrington, PhD. SUMMARY: Goal: Establish test [...] study staff at ; after hours Director Revenue via the [facility] shear grinder operator . Prediabetes 08/08/2017 Overview: Per Prediabetes [...] encounter Miscellaneous Notes * Telephone Encounter - Tracie Vazquez LPN - 12/20/2017 1:41 PM EDT Can order at visit * Telephone Encounter - Jose Agee OSA - 12/20/2017 12:47 PM EDT An order was requested for this patient. Name of Requestor: patient Order Requested: TB test Diagnosis/Reason for Request: for nurse visit tomorrow Does the order need to be faxed somewhere? If so, where?: Fax Number, if applicable: Call Back Number: [phone] in this encounter Plan of Treatment Upcoming Encounters Date Type Specialty Care Team Description 12/20/2017 Nurse Only Ancillary Nurse Afshan [address] [place] [place] [address] [phone] 02/13/2018 Office Visit Family Medicine Coco Darnell DO [address] [place] [address] [address] [phone] 05/29/2018 Office Visit Dermatology Laurel Arnett MD [address] [place] [address] [phone] Health Maintenance Due Date Last Done Comments Influenza Vaccine (FLU shot) (#1) 2017 12/25/2016, 01/22/2016, 11/21/2014, Additional history exists CKD URINE PROTEIN/CREATININE RATION OR URINE MICROALBUMIN YEARLY USE SMARTSET 68000 01/18/2018 01/18/2017 CKD GFR USE SMARTSET 54103 03/02/201808/31, 07/29/2017, 11/14/2016, Additional history exists CKD HGB USE SMARTSET 40374 07/29/201807/29, 03/31/2016, 08/05/2015, Additional history exists CKD PHOS USE SMARTSET 98803 07/29/201807/18, 03/31/2016, 08/06/2014 Prediabetes-Yearly Hemoglobin A1c 08/24/2018 [...]
--- OUTSIDE RECORDS SUMMARY | 2022-12-12 21:50 | External Medical Summary | Summary of Care ---
Author Name Unknown Organization [place] [address] Care Team Providers Care Senior Policy Analyst Name Role Phone Chelsea Berumen Primary Care Provid er Encounter Details Date Type Department Care Team Description 09/23/2019 Orders Only Outcomes Research Department [address] [place] [address] Chidi Henriquez CHRA MyCode Research Other*[id number] Allergies Active Allergy Reactions Severity Noted Date Comments Prednisone Other (Please comment) 12/22/2016 Severe depression documented as of this encounter (statuses as of 09/23/2019) Medications Medication Sig Dispensed Refills Start Date [...] units Capsule Take by mouth. 0 Active [place] 3 1200 MG CAPS 0 Active Biotin [...] as of this encounter (statuses as of 09/23/2019) Active Problems Problem Noted Date DETECT Research Study*[id number] Overview: DO NOT DELETE [facility] DETECT Study: Project # [id number], Drain Tile Machine Operator: Jace Arrington, PhD. SUMMARY: Goal: [...] contact study staff at ; after hours Drain Tile Machine Operator via the [facility] hospital pulping machine operator . Please contact study team before resolving/deleting from patients problem list. Study phone number: [phone]. Prediabetes 08/08/2017 Overview: Per Prediabetes protocol #1 [...] as of this encounter (statuses as of 09/23/2019) Resolved Problems Problem Noted Date Resolved Date [...] as of this encounter (statuses as of 09/23/2019) Immunizations Name Administration Dates Next Due PPD [...] 01/02/2020 Office Visit Gastroenterology Ruslan Kelly MD [address] [place] [address] [place] [address] Scheduled Orders Name Type Priority Associated Diagnoses Orde r Schedule MYCODE SUBSEQUENT ADULT Lab Routine MyCode Research Other*[id number] Every 6 Months for 2 Occurrences starting 09/23/2019 until 10/12/2020 Health Maintenance Due Date Last Done Comments Zoster Vaccines (2 of 3) 05/15/2007 03/20/2007 CKD GFR USE SMARTSET 64440 03/02/201808/31, 07/29/2017, 11/14/2016, Additional history exists CKD HGB USE SMARTSET 17946 07/29/201807/29, 03/31/2016, 08/05/2015, Additional history exists CKD PHOS USE SMARTSET 35238 07/29/201807/18, 03/31/2016, 08/06/2014 *DEPRESSION SCREENING,ANNUAL FOR PTS 12 AND OVER 08/14/2018 Prediabetes-Yearly Hemoglobin A1c 08/24/2018 08/24/2017, 08/24/2017 *BASIC METABOLIC PANEL (BMP) FOR HTN YEARLY 09/03/2018 DXA-SCREENING EVERY 7 YRS-USE SMARTSET# 3348 TO ORDER 03/15/2019 03/15/2012 Influenza Vaccine (FLU shot) (Season Ended) 2019 12/21/2017, 12/25/2016, 01/22/2016, Additional history exists [...] this encounter Visit Diagnoses Diagnosis MyCode Research Other*[id number] documented in this encounter Advance Directives Documents on File Type Date Recorded Patient Obgyn Specialist Expl anation Advance Directives and Living [...]
--- OUTSIDE RECORDS SUMMARY | 2022-12-12 21:50 | External Medical Summary | Summary of Care ---
Author Name Unknown Organization [place] [address] Care Team Providers Care Design Maker Name Role Phone Chelsea Berumen Primary Care Provid er Reason for Visit * Reason Comments Advice Encounter Details Date Type Department Care Team Description 09/02/2019 Telephone Gastroenterology, [facility] [address] [place] [address] [facility] [address] [facility] [address] [phone] Advice Allergies Active Allergy Reactions Severity Noted Date Comments Prednisone Other (Please comment) 12/22/2016 Severe depression documented as of this encounter (statuses as of 09/03/2019) Medications Medication Sig Dispensed Refills Start Date [...] units Capsule Take by mouth. 0 Active [place] 3 1200 MG CAPS 0 Active Biotin [...] as of this encounter (statuses as of 09/03/2019) Active Problems Problem Noted Date DETECT Research Study*[id number] Overview: DO NOT DELETE [facility] DETECT Study: Project # [id number], Firewall Engineer: Jace Arrington, PhD. SUMMARY: Goal: Establish test [...] contact study staff at ; after hours Firewall Engineer via the [facility] hospital blanchard grinder operator . Please contact study team before resolving/deleting from patients problem list. Study phone number: [phone]. Prediabetes 08/08/2017 Overview: Per Prediabetes protocol #1 [...] as of this encounter (statuses as of 09/03/2019) Resolved Problems Problem Noted Date Resolved Date [...] as of this encounter (statuses as of 09/03/2019) Immunizations Name Administration Dates Next Due PPD [...] encounter Miscellaneous Notes * Telephone Encounter - Lida Read OSA - 09/03/2019 9:56 AM EDT Patient is scheduled and aware of office visit 01/[address] Kelly. * Telephone Encounter - Ryan Gates OSA - 09/02/2019 3:12 PM EDT Patient returning call - states someone had called her from gastroenterology and left a message to call back regarding appointment scheduling. Patient is currently on the recall list to see Dr. Kellyfor 18mo f/u in December. Patient upset that she did not see Dr. Kelly for her last appointment, only wants to schedule with him in the future. Unsure if/why patient was called by gastro office. Please advise. Thanks. Callback#: [phone] documented in this encounter Plan of Treatment Upcoming Encounters Date Type Specialty Care Team Description 01/02/2020 Office Visit Gastroenterology Ruslan Kelly MD [address] [facility] [place] [address] [phone] Health Maintenance Due Date Last Done Comments Zoster Vaccines (2 of 3) 05/15/2007 03/20/2007 CKD GFR USE SMARTSET 19287 03/02/201808/31, 07/29/2017, 11/14/2016, Additional history exists CKD HGB USE SMARTSET 41729 07/29/201807/29, 03/31/2016, 08/05/2015, Additional history exists CKD PHOS USE SMARTSET 48128 07/29/201807/18, 03/31/2016, 08/06/2014 *DEPRESSION SCREENING,ANNUAL FOR PTS [...] Documents on File Type Date Recorded 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
--- OUTSIDE RECORDS SUMMARY | 2022-12-12 21:50 | External Medical Summary | Summary of Care ---
Author Name Unknown Organization [place] [address] Care Team Providers Care Acid Mixer Name Role Phone Chelsea Berumen Primary Care Provid er Reason for Visit * Reason Comments Referral colonoscopy Encounter Details Date Type Department Care Team Description 10/11/2019 Telephone Gastroenterology, [facility] [address] [facility] [place] [address] Dejah Santos CRNP [address] [facility] [place] [address] Referral (colonoscopy ) Allergies Active Allergy Reactions Severity Noted Date [...] units Capsule Take by mouth. 0 Active [place] 3 1200 MG CAPS 0 Active Biotin [...] mouth 3 times a day. 0 Active documented as of this encounter (statuses as of 10/11/2019) Active Problems Problem Noted Date DETECT Research Study*[id number] Overview: DO NOT DELETE [facility] DETECT Study: Project # [id number], Referral Nurse: Jace Arrington, PhD. SUMMARY: Goal: Establish test [...] contact study staff at ; after hours Referral Nurse via the [facility] hospital flexographic press operator . Please contact study team before resolving/deleting from patients problem list. Study phone number: [phone]. Prediabetes 08/08/2017 Overview: Per Prediabetes protocol #1 [...] Telephone Encounter - Lida Read OSA - 10/11/2019 4:04 PM EDT Patient states she does not want to schedule colonoscopy at this time. documented in this encounter Plan of Treatment Upcoming Encounters Date Type Specialty Care Team Description 01/02/2020 Office Visit Gastroenterology Ruslan Kelly MD [address] [place] [address] [phone] Health Maintenance Due Date Last Done Comments Zoster Vaccines (2 of 3) 05/15/2007 03/20/2007 CKD GFR USE SMARTSET 13029 03/02/201808/31, 07/29/2017, 11/14/2016, Additional history exists CKD HGB USE SMARTSET 90602 07/29/201807/29, 03/31/2016, 08/05/2015, Additional history exists CKD PHOS USE SMARTSET 82080 07/29/201807/18, 03/31/2016, 08/06/2014 *DEPRESSION SCREENING,ANNUAL FOR PTS [...] Documents on File Type Date Recorded 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
--- OUTSIDE RECORDS SUMMARY | 2022-12-12 21:51 | External Medical Summary | Summary of Care ---
Author Name Unknown Organization [place] [address] Phone Care Team Providers Care Chopper Feeder Name Role Phone Coco Hammond DO Primary Care Provider [phone] Reason for Visit * Reason Comments NEW PATIENT Here today re.her lao irloss for several years.Treatment:Minoxidil off and on for about 6 years,slowed down hair loss,stopped using when it stopped working and hair spray as filler.Also brought list of other skin issues.Hx of NMSCs.Would lke full body skin check. Encounter Details Date Type Department Care Team Description 11/28/2017 Office Visit Dermatology [facility] [address] [place] [address] Laurel Arnett MD [address] [place] [address] [phone] Facial rhytids*;Female pattern hair loss;Seborrheic keratosis Allergies Active Allergy Reactions Severity Noted [...] 1000 units Capsule Take by mouth. Active [place] 3 1200 MG CAPS Active Biotin 1 MG Capsule Activ e Ascorbic Acid (VITAMIN C) 1000 MG Tablet Take 1,000 mg by mouth daily. Active fluticasone (FLONASE) 50 MCG/ACT nasal sprayIndications:Po st-nasal drip,Cough Administer 2 Sprays into each nostril daily. 1 Inhaler 5 05/18/2017 Active MEDICAL INSTRUCTIONS Use as directed. Bi-Est estrogen cream --apply cream to arm every other day Active losartan (COZAAR) 100 MG Tablet Take 1 Tab by mouth daily. 90 Tab 1 11/24/2017 Active acetaminophen (TYLENOL EXTRA STRENGTH) 500 MG Tablet Take 500 mg by mouth every 6 hours as needed for Pain. Active tretinoin (RETIN-A) 0.05 % creamIndications:Fa cial rhytids Apply topically to affected area at bedtime. Apply a thin layer to face at bedtime 45 g 2 11/28/2017 Active as of this encounter Active Problems Problem Noted Date DETECT Research Study*[id number] Overview: [facility] DETECT Study: Project # [id number], Industrial Safety And Health Specialist: Jace Arrington, PhD. SUMMARY: Goal: Establish [...] contact study staff at ; after hours Industrial Safety And Health Specialist via the [facility] flash drier operator . Prediabetes 08/08/2017 Overview: Per [...] Not on file as of this encounter Instructions * Patient Instructions - Laurel Arnett MD - 11/28/2017 2:39 PM EDT Differin - over the counter in this encounter Progress Notes * Laurel Arnett MD - 11/28/2017 2:08 PM EDT Formatting of this note may be different from the original. SUBJECTIVE: HPI: Laurel Rios is a 77 year old female. Pt seen at the request of Self for evaluation and treatment of a hair loss. Location is at the superior scalp for a duration of about 6 years Associated symptoms include increased loss and no regrowth with a moderate severity and constant timing. Onset slow and progressive. Treatments to date include: rogaine and generic minoxidil, spray, fill kerastix + family history of hair loss Pt requests a full skin check Last Office Visit: 2013 - Dr. Holliday CO2 laser Pt has concerns bout scarring on the face and fine lines -in the past she has had CO2 and dermabrasion She is currently using tretinoin Neutorgena Hydroboost History of [facility]SC[facility] REVIEW OF SYSTEMS: SKIN: [...] Skin Disorders: none SOCIAL HISTORY: Social History Substance Use Topics • Smoking status: Former Smoker Quit date: 03/19/1988 • Smokeless tobacco: Never Used Comment: quit 1987 • Alcohol use No MEDICA TIONS: Current Outpatient Prescriptions Medication Sig Dispense Refill losartan (COZAAR) 100 MG Tablet Take 1 Tab by mouth daily. 90 Tab 1 MEDICAL INSTRUCTIONS Use as directed. Bi-Est estrogen cream --apply cream to arm every other day fluticasone (FLONASE) 50 MCG/ACT nasal spray Administer 2 Sprays into each nostril daily. 1 Inhaler5 Ascorbic Acid (VITAMIN C) 1000 MG Tablet Take 1,000 mg by mouth daily. Biotin 1 MG Capsule Cholecalciferol (VITAMIN D-3) 1000 units Capsule Take by mouth. [place] 3 1200 MG CAPS dicyclomine (BENTYL) 10 MG Capsule Take 1 Cap by mouth 4 times a day as needed for Cramping. For abdominal pain 120 Cap 5 DULoxetine (CYMBALTA) 20 MG CPEP gabapentin (NEURONTIN) 100 MG Capsule Take 3 [...] 1000 MG/60GM EX CREA apply once daily ASPIRIN 81 MG PO TABS 2 daily RED YEAST RICE 600 MG PO CAPS 1 daily STOOL SOFTENER 100 MG PO TABS 1 tablet daily as needed for constipation ALLERG Y: Prednisone OBJECTIVE: GEN: Healthy, alert, no distress, appears oriented, pleasant and cooperative. SKIN: Detailed exam of hair, face including lids and lips, neck, chest, abdomen, back, bilateral upper ext. (arm, hand, fingers), bilateral lower ext. (leg, foot, toes), palpation of scalp, bilateralhand, bilateral foot, inguinal areas and buttocks completed and are normal except: 1. Scalp - noted thinning on the superior scalp with retention on the front hair line, no erythema,no scale 2. Face - decrease in naolabial folds and scattered rhytids 3. Chest and back = brown keratotic plaques with a stuck on appearance and horn cysts ASSESS MENT/PLAN: 1. 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 Advised to call with any changes. Follow-up: 6 months There were no barriers tolearning and no other pain was related to today's visit. The patient and/or person accompanying patient demonstrates understanding of the visit and treatment. Laurel Arnett MD 11/28/2017 2:09 PM Ref: SELF[[id number]] NO [address]RE[address] ADDRESS AVAILABLE None (office) None (fax) PCP: COCO HAMMOND [address] [place] [address] [phone] in this encounter Nursing Notes * Sophie Rios, RN - 11/28/2017 2:13 PM EDT Do you have any concerns about pain management for today's visit? No Living Will or Advance Directive for Health Care as noted on problem list. My [facility] is a way you can talk to your provider on line through e-mail. Would you like to sign up? I can activate it for you? ALREADY ACTIVE in this encounter Plan of Treatment Upcoming Encounters Date Type Specialty Care Team Description 02/13/2018 Office Visit Family Medicine Coco Hammond DO [address] [place] [address] [phone] 05/29/2018 Office Visit Dermatology Laurel Arnett MD [address] [place] [address], [place] [id number] Health Maintenance Due Date Last Done Comments Zoster Vaccines HMT (2 of 3) 05/15/2007 03/20/2007 Influenza Vaccine (FLU shot) (#1) 2017 12/25/2016, 01/22/2016, 11/21/2014, Additional history exists CKD URINE PROTEIN/CREATININE RATION OR URINE MICROALBUMIN YEARLY USE SMARTSET 41158 01/18/2018 01/18/2017 CKD GFR USE SMARTSET 33154 03/02/201808/31, 07/29/2017, 11/14/2016, Additional history exists CKD HGB USE SMARTSET 49963 07/29/201807/29, 03/31/2016, 08/05/2015, Additional history exists CKD PHOS USE SMARTSET 07096 07/29/201807/18, 03/31/2016, 08/06/2014 Prediabetes-Yearly Hemoglobin A1c 08/24/2018 [...] fileas of this encounter Visit Diagnoses Diagnosis Facial rhytids - Primary Other specified hypertrophic and atrophic condition of skin Female pattern hair loss Alopecia, unspecified Seborrheic keratosis Other seborrheic keratosis in this encounter
--- OUTSIDE RECORDS SUMMARY | 2022-12-12 21:51 | External Medical Summary | Summary of Care ---
Author Name Unknown Organization [place] [address] Phone Care Team Providers Care Treatment Counselor Name Role Phone Coco Darnell DO Primary Care Provider [phone] Reason for Visit * Reason Comments HTN Encounter Details Date Type Department Care Team Description 11/24/2017 Office Visit [facility] [address] [place] [address] Coco Darnell DO [address] [place] [address] [phone] Benign hypertension with CKD (chronic kidney disease) stage III*;Chronic right-sided low back pain without sciatica Allergies Active Allergy Reactions Severity Noted Date [...] 1000 units Capsule Take by mouth. Active [place] 3 1200 MG CAPS Active Biotin 1 MG Capsule Active Ascorbic Acid (VITAMIN C) 1000 MG Tablet Take 1,000 mg by mouth daily. Active fluticasone (FLONASE) 50 MCG/ACT nasal sprayIndications: Post-nasal drip,Cough Administer 2 Sprays into each nostril daily. 1 Inhaler 5 05/18/2017 Active MEDICAL INSTRUCTIONS Use as directed. Bi-Est estrogen cream --apply cream to arm every other day Active NAPROXEN SODIUM 220 MG PO CAPS 1 daily 11/25/19 18 Discontinued valsartan (DIOVAN) 80 MG TabletIndications :Benign hypertension with CKD (chronic kidney disease) stage III,HTN, goal below 140/90,LVH (left ventricular hypertrophy) due to hypertensive disease, without heart failure Take 1 Tab by mouth daily. 90 Tab 1 04/20/2017 11/25/19 18 Discontinued losartan (COZAAR) 50 MG Tablet Take 1 Tab by mouth daily. 90 Tab 1 10/31/2017 11/25/19 18 Discontinued losartan (COZAAR) 100 MG Tablet Take 1 Tab by mouth daily. 90 Tab 1 11/24/2017 12/02/19 18 Discontinued as of this encounter Active Problems Problem Noted Date DETECT Research Study*[id number] Overview: [facility] DETECT Study: Project # [id number], Chucking And Sawing Machine Operator: Jace Arrington, PhD. SUMMARY: Goal: [...] contact study staff at ; after hours Chucking And Sawing Machine Operator via the [facility] hospital contact acid plant operator . Prediabetes 08/08/2017 Overview: Per Prediabetes [...] Vital Sign Reading Time Taken Blood Pressure 150/74 11/24/2017 12:37 PM EDT Pulse 78 11/24/2017 12:37 PM EDT Temperature 36.3 °C (97.3 °F) 11/24/2017 1 2:37 PM EDT Respiratory Rate 14 11/24/2017 12:3 7 PM EDT Oxygen Saturation - - Inhaled Oxygen Concentration - - Weight 68.9 kg (152 lb) 11/24/2017 12:3 7 PM EDT Height - - Body Mass Index 26.09 11/24/2017 12:37 PM EDT in this encounter Progress Notes * Coco Darnell DO - 11/24/2017 12:38 PM EDT Formatting of this note may be different from the original. SUBJECTIVE: Chief Complaint Patient presents with • HTN HPI: Laurel Rios is a 77 year old female who presents today for follow-up. Pt reports that things have been cleared up with her insurance and she thanks me for this today. She has been on the losartan. She does not feel that it is necessarily treating her BP as well. Pt notes that she has had some right sided back pain. She notes that she has had some discomfort for several months. She notes no new shoes, bedding, etc. She notes that her SI joint had popped and her leg had locked up. She did some of her old PT exercises. She was using Aleve fairly regularly. She notes that she is not sure if this is more of an issue since she has stopped this. She states thatshe will lie on a foam roller in the morning and do her stretches. She will put ice on her PHM: Patient Active Problem List Diagnosis Code • Hypothyroidism E03.9 • Depression F32.9 • GENERALIZED ANXIETY DIS F41.1 • Irritable bowel syndrome K58.9 • Dyslipidemia, goal LDL below 130 E78.5 BONE & CARTILAGE DIS NOS - Osteopenia M89.9, M94.9 • Posttraumatic stress disorder F43.10 • Vitamin D deficiency E55.9 • Hx of nonmelanoma skin cancer Z85.828 • HTN, goal below 140/90 I10 • Benign hypertension with CKD (chronic kidney disease) stage III I12.9, N18.3 • LVH (left ventricular hypertrophy) due to hypertensive disease, without heart failure I11.9 • Prediabetes R73.03 • DETECT Research Study*[id number] Z00.6 Current Outpatient Prescriptions Medication Sig Dispense Refill • MEDICAL INSTRUCTIONS Use as directed. Bi-Est estrogen cream --apply cream to arm every other day • fluticasone (FLONASE) 50 MCG/ACT nasal spray Administer 2 Sprays into each nostril daily. 1 Inhaler 5 • Ascorbic Acid (VITAMIN C) 1000 MG Tablet Take 1,000 mg by mouth daily. • Biotin 1 MG Capsule • Cholecalciferol (VITAMIN D-3) 1000 units Capsule Take by mouth. • [place] 3 1200 MG CAPS • dicyclomine (BENTYL) [...] 1 tablet daily as needed for constipation valsartan (DIOVAN) 80 MG Tablet Take 1 Tab by mouth daily. 30 Tab 0 valsartan (DIOVAN) 80 MG Tablet Take 1 Tab by mouth daily. 90 Tab 1 acetaminophen (TYLENOL EXTRA STRENGTH) 500 MG Tablet Take 500 mg by mouth every 6 hours as needed for Pain. tretinoin (RETIN-A) 0.05 % cream Apply topically to affected area at bedtime. 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 Hu • TOTAL HYSTERECTOMY 1989 still has one ovary Review of patient's allergies indicates: Allergen Reactions • Prednisone Other (Please comment) Severe depression Family History Problem Relation Age of Onset [...] hystoplamosis of the optic nerve, OU Family Status Relation Status • Sister • Mother • Father • Sister • Sister • Sister Social History Substance Use Topics • Smoking status: Former Smoker Quit date: 03/19/1988 • Smokeless tobacco: Never Used Comment: quit 1987 • Alcohol use No REVIEW OF SYSTEMS: Constitutional ROS: No change in weight, No weakness, No fatigue and No fevers, sweats, or chills Pulmonary ROS: No cough or sputum. No wheezing, No shortness of breath Cardiovascular ROS: No chest pain, No shortness of breath, No dyspnea on exertion, No orthopnea Gastrointestinal ROS: No abdominal pain, No change in bowel habits, No nausea, vomiting, diarrhea, or constipation Musculoskeletal/Extremities ROS: as per HPI Skin/Integumentary ROS: No edema, No rash and No itching OBJECTIVE: BP 150/74 | Pulse 78 | Temp (Src) 97.3 (Tympanic) | Resp 14 | Wt 152 lbs (68.947kg) | BMI 26.09 kg/m² | BSA 1.76 m² PHYSICAL EXAM: General: alert, no distress and well nourished Head: Normocephalic, No masses, lesions, tenderness or abnormalities Heart: regular rate & rhythm, no murmurs and no gallops Lungs: chest symmetric with normal AP diameter, no chest deformities noted, no chest wall tenderness, lungs clear to auscultation Abdomen: abdomen soft, non-tender, normal bowel sounds and no masses or organomegaly Back: some tenderness along lower lumbar paraspinal musculature with minimal spasm, negative straight leg raise Extremities: no joint deformities, effusion, or inflammation, no edema, no cyanosis Skin: skin color, texture, turgor are normal, no rashes or significant lesions ASSESSMENT/PLAN: I12.9, N18.3 Benign hypertension with ckd (chronic kidney disease) stage iii (primary encounter diagnosis) Plan: Pt's BP elevated. She will increase her losartan to 100mg. Recheck of BP in 2 weeks. Medication: 1. Losartan 100mg one tablet daily M54.5, G89.29 Chronic right-sided low back pain without sciatica Plan: Pt reassured that this is not where her kidneys are located. Musculoskeletal in nature. It has improved overall. Could consider formal PT If persisting. Follow-up: [place] in 2 weeks for BP check Coco Darnell DO in this encounter Nursing Notes * Tracie Vazquez LPN - 11/24/2017 12:37 PM EDT bp issues in this encounter Plan of Treatment Upcoming Encounters Date Type Specialty Care Team Description 02/13/2018 Office Visit Family Medicine Coco Darnell DO [address] [address] 05/29/2018 Office Visit Dermatology Laurel Arnett MD [address] [place] [address] [phone] Health Maintenance Due Date Last Done Comments Zoster Vaccines HMT (2 of 3) 05/15/2007 03/20/2007 Influenza Vaccine (FLU shot) (#1) 2017 12/25/2016, 01/22/2016, 11/21/2014, Additional history exists CKD URINE PROTEIN/CREATININE RATION OR URINE MICROALBUMIN YEARLY USE SMARTSET 64010 01/18/2018 01/18/2017 CKD GFR USE SMARTSET 16031 03/02/201808/31, 07/29/2017, 11/14/2016, Additional history exists CKD HGB USE SMARTSET 29688 07/29/201807/29, 03/31/2016, 08/05/2015, Additional history exists CKD PHOS USE SMARTSET 34225 07/29/201807/18, 03/31/2016, 08/06/2014 Prediabetes-Yearly Hemoglobin A1c 08/24/2018 [...] fileas of this encounter Visit Diagnoses Diagnosis Benign hypertension with CKD (chronic kidney disease) stage III - Primary Benign hypertensive kidney disease with chronic kidney disease stage I through stage IV, or unspecified Chronic right-sided low back pain without sciatica in this encounter"
--- OUTSIDE RECORDS SUMMARY | 2022-12-12 21:51 | External Medical Summary | Summary of Care ---
Author Name Unknown Organization [place] [address] Phone Care Team Providers Care Audit Clerk Name Role Phone Coco Darnell DO Primary Care Provider Encounter Details Date Type Department Care Team Description 11/13/2017 Scan Encounter Unspecified Department <No scans attached> [...] EX CREA apply once daily Act stephanie NAPROXEN SODIUM 220 MG PO CAPS 1 daily Active cyclosporine (RESTASIS) 0.05 % ophthalmic emulsion Instill [...] 1000 units Capsule Take by mouth. Active [place] 3 1200 MG CAPS Active Biotin 1 MG Capsule Activ e Ascorbic Acid (VITAMIN C) 1000 MG Tablet Take 1,000 mg by mouth daily. Active valsartan (DIOVAN) 80 MG TabletIndications:B enign hypertension with CKD (chronic kidney disease) stage III,HTN, goal below 140/90,LVH (left ventricular hypertrophy) due to hypertensive disease, without heart failure Take 1 Tab by mouth daily. 90 Tab 1 04/20/2017 Active fluticasone (FLONASE) 50 MCG/ACT nasal sprayIndications:Po st-nasal drip,Cough Administer 2 Sprays into each nostril daily. 1 Inhaler 5 05/18/2017 Active MEDICAL INSTRUCTIONS Use as directed. Bi-Est estrogen cream --apply cream to arm every other day Active losartan (COZAAR) 50 MG Tablet Take 1 Tab by mouth daily. 90 Tab 1 10/31/2017 Active as of this encounter Active Problems Problem Noted Date DETECT Research Study*[id number] Overview: [facility] DETECT Study: Project # [id number], Clinical Research Spec: Jace Arrington, PhD. SUMMARY: Goal: Establish test [...] contact study staff at ; after hours Clinical Research Spec via the [facility] hospital work car operator . Prediabetes 08/08/2017 Overview: Per Prediabetes [...] Dates Previously Given Next Due PPD 01/16/2017, 6,02/20/2015,01/19 Pneumococcal Conjugate Vacc, 13 Valent (Prevnar) 07/08/2015 Pneumococcal Polyvalent Vacc (Pneumovax) 10/13/2016,08/16/2002 Seasonal Influenza, Cell Cul ture, [...] Encounters Date Type Specialty Care Team Description 11/28/2017 Office Visit Dermatology Laurel Arnett MD [address] [place] [address] [phone] 02/13/2018 Office Visit Family Medicine Coco Darnell DO [address] [id number] Health Maintenance Due Date Last Done Comments Zoster Vaccines HMT (2 of 3) 05/15/2007 03/20/2007 Influenza Vaccine (FLU shot) (#1) 2017 12/25/2016, 01/22/2016, 11/21/2014, Additional history exists CKD URINE PROTEIN/CREATININE RATION OR URINE MICROALBUMIN YEARLY USE SMARTSET 22660 01/18/2018 01/18/2017 CKD GFR USE SMARTSET 05928 03/02/201808/31, 07/29/2017, 11/14/2016, Additional history exists CKD HGB USE SMARTSET 09385 07/29/201807/29, 03/31/2016, 08/05/2015, Additional history exists CKD LDL USE SMARTSET 35866 ( STAGE 3) [place] [address] (STAGE 4) 07/29/2018 07/29/2017, 11/14/2016, 08/05/2015, Additional history exists CKD PHOS USE SMARTSET 00616 07/29/201807/18, 03/31/2016, 08/06/2014 Prediabetes-Yearly Hemoglobin A1c 08/24/2018 [...]
--- OUTSIDE RECORDS SUMMARY | 2022-12-12 21:51 | External Medical Summary | Summary of Care ---
Author Name Unknown Organization [place] [address] Phone Care Team Providers Care Subscription Agent Name Role Phone Coco Darnell DO Primary Care Provider [phone] Reason for Visit * Reason Comments ADVICE Encounter Details Date Type Department Care Team Description 10/02/2017 Telephone [facility] [address] [place] [address] Coco Darnell DO [address] [place], [place] [phone] ADVICE Allergies Active Allergy Reactions Severity Noted Date [...] 1000 units Capsule Take by mouth. Active [place] 3 1200 MG CAPS Active Biotin 1 [...] cream to arm every other day Active as of this encounter Active Problems Problem Noted Date DETECT Research Study*[id number] Overview: [facility] DETECT Study: Project # [id number], Manager Metrology: Jace Arrington, PhD. SUMMARY: Goal: Establish test [...] study staff at ; after hours Manager Metrology via the [facility] hospital percussion welding machine operator . Prediabetes 08/08/2017 Overview: Per [...] Vacc (Pneumovax) 10/13/2016,08/16/2002 Seasonal Influenza, Cell Cul gricelda, 18 Yrs & Older 02/01/2013 Seasonal Influenza, Quadriva lent, No Preserve, IM 01/22/2016 Seasonal Influenza, Trivalen t, with Preserve, 3yr & Above, Split 12/25/2016,11/21/2014,11/19/2013,1004/2011,01/31/2011,01/18/2010 TDAP (age 10 and older)(Boostrix) 12/20/2011 Varicella Zoster Vaccine (Adult) 03/20/2007 as of this encounter Social History Tobacco Use Types Packs/Day Years Used Date Former Smoker Quit: 03/19 Smokeless Tobacco: Never Used Comments:quit 1987 Alcohol Use Drinks/Week oz/Week Comments No Sex Assigned at Date Recorded Not on file as of this encounter Miscellaneous Notes * Telephone Encounter - Coco Darnell, - 10/02/2017 10:06 AM EDT See other encounter. * Telephone Encounter - Risa Snyder LPN - 10/02/2017 9:19 AM EDT Pt calling and upset and ins is going to drop pt due to chronic kidney disease. Upset THAT SHE NEVER KNEW IT. No med bills have been paid since May. Upset she has sent [employer] messages to dr Darnell and she never got back to her. What is being done for this? Per pt Ortho advised pt to go off eleve and go on meloxicam and needs a script for that.and has asked for it and never got it She wants to hear from Dr Darnell today * Telephone Encounter - Cassi Lebron, MARIFER - 10/02/2017 9:18 AM EDT Reason for patient's call: discuss issues with diagnosis of chronic kidney disease Caller was transferred to [facility] at the dedicated phone nurse line. in this encounter Plan of Treatment Upcoming Encounters Date Type Specialty Care Team Description 11/28/2017 Office Visit Dermatology Laurel Arnett MD [address] [facility] [place] [address] [phone] 12/05/2017 Office Visit Gastroenterology Ruslan Kelly MD [address] [facility] [address] [place] [address] 02/13/2018 Office Visit Family Medicine Coco Darnell DO [address] [phone] Health Maintenance Due Date Last Done Comments Influenza Vaccine (FLU shot) (#1) 2017 12/25/2016, 01/22/2016, 11/21/2014, Additional history exists CKD URINE PROTEIN/CREATININE RATION OR URINE MICROALBUMIN YEARLY USE SMARTSET 67881 01/18/2018 01/18/2017 CKD GFR USE SMARTSET 81591 03/02/201808/31, 07/29/2017, 11/14/2016, Additional history exists CKD HGB USE SMARTSET 59776 07/29/201807/29, 03/31/2016, 08/05/2015, Additional history exists CKD LDL USE SMARTSET 10310 ( STAGE 3) [place] 154[address] (STAGE 4) 07/29/2018 07/29/2017, 11/14/2016, 08/05/2015, Additional history exists CKD PHOS USE SMARTSET 29210 07/29/201807/18, 03/31/2016, 08/06/2014 DXA-SCREENING EVERY 7 YRS-US E SMARTSET# 3348 [...]
--- OUTSIDE RECORDS SUMMARY | 2022-12-12 21:51 | External Medical Summary | Summary of Care ---
Author Name Unknown Organization [place] [address] Phone Care Team Providers Care Program Associate Name Role Phone Coco Darnell DO Primary Care Provider Reason for Visit * Reason Comments ADVICE Encounter Details Date Type Department Care Team Description 10/04/2017 Telephone [facility] [place] [address] [place] [address] Coco Darnell DO [address] [place], [place] [phone] ADVICE Allergies Active Allergy Reactions Severity Noted [...] 1000 units Capsule Take by mouth. Active [place] 3 1200 MG CAPS Active Biotin 1 [...] Active Problems Problem Noted Date DETECT Research Study*[id number] Overview: [facility] DETECT Study: Project # [id number], Surgical Rn: Jace Arrington, PhD. SUMMARY: Goal: Establish test [...] contact study staff at ; after hours Surgical Rn via the [facility] hospital vessel operator . Prediabetes 08/08/2017 Overview: Per Prediabetes [...] Polyvalent Vacc (Pneumovax) 10/13/2016,08/16/2002 Seasonal Influenza, Cell Cheryl madison, 18 Yrs & Older 02/01/2013 Seasonal Influenza, [...] Telephone Encounter - Coco Darnell DO - 10/04/2017 6:21 PM EDT Spoke with pt for approximately 30 minutes with Tracie Vazquez LPN witnessing the phone call. Attempted to explain CKD-III to patient and review what has been done for her healthcare for years. Advised that a statin would be recommended (which she has repeatedly declined) and that we need to keep her BP controlled (which has been difficult at times as she has refused to take multiple medications as she believes they cause hair loss). Reviewed that she is not anywhere near requiring dialysis and the monitoring she has been having has been ongoing, even prior to seeing me. Reviewed that she should not take NSAIDS. She was upset she had not heard back about taking meloxicam. Advised that this was attempted to be relayed to her previously but she had hung up on nursing staff. Advised that she can keep an appointment with nephrology but that there is little that will likely be done. Reviewed that this was also reviewed by Dr. Perez of nephrology who agreed with assessment. Did advise that we have written a letter stating that she does not have any significant renal disease and are happy to send to her insurance. It is not clear who this should go to but she did give me information for [employer]. Will discuss with my business services officer to see if she can assist. Advised pt that this has not been something that has been billed just starting in May and has been billed for some time so I amnot sure what happened with insurance. I do see that medical record requests were sent twice. Will ask business services officer to look into this to see if these were sent to [employer] (which may be all that is needed). Advised pt that her healthcare is important to us and to let us know if there is anything else needed. Throughout call, pt interrupted often and was yelling quite frequently. She threatened to " take things higher" if needed. Difficult to know if she actually was able to absorb any informationgiven to her. Of note, I did advise pt that we received notice of a recall on valsartan from certain drug companies. Advised that she call [facility] and see who their supplier is. She was given the name of the companiesthat were involved and advised to call us if needed. Will need change in BP medication which I advised would be difficult given her concern with hair loss on a number of them. in this encounter Plan of Treatment Upcoming Encounters Date Type Specialty Care Team Description 10/13/2017 Office Visit Nephrology Tung Carreon MD [address] [address] 11/28/2017 Office Visit Dermatology Laurel Arnett MD [address] [place] [address] 12/05/2017 Office Visit Gastroenterology Ruslan Kelly MD [address] [place] [address] [phone] 02/13/2018 Office Visit Family Medicine Coco Darnell DO [address] [address] Health Maintenance Due Date Last Done Comments Influenza Vaccine (FLU shot) (#1) 2017 12/25/2016, 01/22/2016, 11/21/2014, Additional history exists CKD URINE PROTEIN/CREATININE RATION OR URINE MICROALBUMIN YEARLY USE SMARTSET 49556 01/18/2018 01/18/2017 CKD GFR USE SMARTSET 52511 03/02/201808/31, 07/29/2017, 11/14/2016, Additional history exists CKD HGB USE SMARTSET 07146 07/29/201807/29, 03/31/2016, 08/05/2015, Additional history exists CKD LDL USE SMARTSET 09075 ( STAGE 3) [place] 647[address] (STAGE 4) 07/29/2018 07/29/2017, 11/14/2016, 08/05/2015, Additional history exists CKD PHOS USE SMARTSET 47631 07/29/201807/18, 03/31/2016, 08/06/2014 DXA-SCREENING EVERY 7 YRS-US [...]
--- OUTSIDE RECORDS SUMMARY | 2022-12-12 21:51 | External Medical Summary | Summary of Care ---
Author Name Unknown Organization [place] [address] Phone Care Team Providers Care Spiritual Advisor Name Role Phone Coco Darnell Primary Care Provider [phone] Reason for Visit * Reason Comments RECHECK Encounter Details Date Type Department Care Team Description 09/18/2017 Office Visit Gastroenterology, [facility] [address] [place] [address] Ruslan Kelly MD [address] [facility] [address] [place] [address] [phone] Abdominal bloating* Allergies Active Allergy Reactions Severity Noted Date [...] 1000 units Capsule Take by mouth. Active [place] 3 1200 MG CAPS Active Biotin 1 [...] Active Problems Problem Noted Date DETECT Research Study*[id number] Overview: [facility] DETECT Study: Project # [id number], Explosion Welder: Jace Arrington, PhD. SUMMARY: Goal: Establish test [...] contact study staff at ; after hours Explosion Welder via the [facility] hospital well logging operator mud analysis . Prediabetes 08/08/2017 Overview: Per Prediabetes protocol [...] Vital Sign Reading Time Taken Blood Pressure 138/82 09/18/2017 11:41 AM EDT Pulse 64 09/18/2017 11:41 AM EDT Temperature 36.7 °C (98.1 °F) 09/18/2017 1 1:41 AM EDT Respiratory Rate - - Oxygen Saturation - - Inhaled Oxygen Concentration - - Weight 69.9 kg (154 lb 3.2 oz) 09/19/19 11:41 AM EDT Height - - Body Mass Index 26.47 09/18/2017 11:41 AM EDT in this encounter Progress Notes * Ruslan Kelly MD - 09/21/2017 1:34 PM EDT see dictated note. Ruslan Kelly MD in this encounter Nursing Notes * Ofe Flanagan RN - 09/18/2017 11:44 AM EDT Formatting of this note may be different from the original. Patient identified by name and date of . Chief Complaint Patient presents with • RECHECK Patient seen by Dr. Coker 08/31/17. She states she tried the low Fod-map diet without improvement. in this encounter Plan of Treatment Upcoming Encounters Date Type Specialty Care Team Description 11/28/2017 Office Visit Dermatology Laurel Arnett MD [address] [facility] [place] [address] [phone] 12/05/2017 Office Visit Gastroenterology Ruslan Kelly MD [address] [place] [address] [phone] 02/13/2018 Office Visit Family Medicine Coco Darnell DO [address] [address] [phone] Health Maintenance Due Date Last Done Comments Influenza Vaccine (FLU shot) (#1) 2017 12/25/2016, 01/22/2016, 11/21/2014, Additional history exists CKD URINE PROTEIN/CREATININE RATION OR URINE MICROALBUMIN YEARLY USE SMARTSET 85520 01/18/2018 01/18/2017 CKD GFR USE SMARTSET 87366 03/02/201808/31, 07/29/2017, 11/14/2016, Additional history exists CKD HGB USE SMARTSET 06939 07/29/201807/29, 03/31/2016, 08/05/2015, Additional history exists CKD LDL USE SMARTSET 69605 ( STAGE 3) [place] [address] (STAGE 4) 07/29/2018 07/29/2017, 11/14/2016, 08/05/2015, Additional history exists CKD PHOS USE SMARTSET 70504 07/29/201807/18, 03/31/2016, 08/06/2014 DXA-SCREENING EVERY 7 YRS-US [...] fileas of this encounter Visit Diagnoses Diagnosis Abdominal bloating - Primary Flatulence, eructation, and gas pain in this encounter
--- OUTSIDE RECORDS SUMMARY | 2022-12-12 21:51 | External Medical Summary | Summary of Care ---
Author Name Unknown Organization [place] [address] Phone Care Team Providers Care Media Sales Representative Name Role Phone Coco Darnell DO Primary Care Provider [phone] Reason for Visit * Reason Comments Encounter Created in Error Encounter Details Date Type Department Care Team Description 12/08/2017 Telephone [facility] [address] [place] [address] Coco Darnell DO [address], [place] [phone] Encounter Created in Error Allergies Active Allergy Reactions Severity Noted Date [...] 1000 units Capsule Take by mouth. Active [place] 3 1200 MG CAPS Active Biotin 1 [...] Active Problems Problem Noted Date DETECT Research Study*[id number] Overview: [facility] DETECT Study: Project # [id number], Resource Technician: Jace Arrington, PhD. SUMMARY: Goal: Establish [...] contact study staff at ; after hours Resource Technician via the [facility] mincing machine operator . Prediabetes 08/08/2017 Overview: Per [...] encounter Miscellaneous Notes * Telephone Encounter - Toshia Larsen OSA - 12/14/2017 4:49 PM EDT Form [employer] insurance requesting information has been faxed for their review & determination. Forms have been scanned into the encounter along with the fax confirmation sheet. * Telephone Encounter - Kirsty Miranda OSA - 12/08/2017 4:25 PM EDT Patient transferred to id by triage nurse. Pt is very upset with [facility]. Patient is demanding that the diagnosis of chronic kidney disease stage III be removed from her chart, and that Dr. Darnell write another letter to her insurance stating pt did not lie. Patient is also asking to speak to the site lead regarding this matter. Patient is extremely adamant that this matter be addressed. Please advise. * Telephone Encounter - Risa Snyder LPN - 12/08/2017 4:07 PM EDT Pt was transferred to id by Dominique, high school hvac r instructor but did not want to talk to me. She wanted transferred back to Dominique in this encounter Plan of Treatment Upcoming Encounters Date Type Specialty Care Team Description 02/13/2018 Office Visit Family Medicine Coco Darnell DO [address] [place] [address] [address] [phone] 05/29/2018 Office Visit Dermatology Laurel Arnett MD [address] [place], [place] [address] [address] [phone] Health Maintenance Due Date Last Done Comments Zoster Vaccines HMT (2 of 3) 05/15/2007 03/20/2007 Influenza Vaccine (FLU shot) (#1) 2017 12/25/2016, 01/22/2016, 11/21/2014, Additional history exists CKD URINE PROTEIN/CREATININE RATION OR URINE MICROALBUMIN YEARLY USE SMARTSET 10334 01/18/2018 01/18/2017 CKD GFR USE SMARTSET 58556 03/02/201808/31, 07/29/2017, 11/14/2016, Additional history exists CKD HGB USE SMARTSET 94456 07/29/201807/29, 03/31/2016, 08/05/2015, Additional history exists CKD PHOS USE SMARTSET 74696 07/29/201807/18, 03/31/2016, 08/06/2014 Prediabetes-Yearly Hemoglobin A1c 08/24/2018 [...]
--- OUTSIDE RECORDS SUMMARY | 2022-12-12 21:51 | External Medical Summary | Summary of Care ---
Author Name Unknown Organization [place] [address] Phone Care Team Providers Care Fire Sprinkler Service Technician Name Role Phone Coco Darnell DO Primary Care Provider [phone] Reason for Visit * Reason Comments Encounter Created in Error Encounter Details Date Type Department Care Team Description 12/08/2017 Telephone [facility] [address] [place] [address] Coco Darnell DO [address] [place], [place] [phone] Encounter Created in Error Allergies Active Allergy [...] 1000 units Capsule Take by mouth. Active [place] 3 1200 MG CAPS Active Biotin 1 [...] Active Problems Problem Noted Date DETECT Research Study*[id number] Overview: [facility] DETECT Study: Project # [id number], Churn Operator: Jace Arrington, PhD. SUMMARY: Goal: Establish [...] contact study staff at ; after hours Churn Operator via the [facility] garnett machine operator . Prediabetes 08/08/2017 Overview: Per [...] encounter Miscellaneous Notes * Telephone Encounter - Risa Snyder LPN - 12/08/2017 4:07 PM EDT Pt was transferred to ri by Dominique, medical scheduler but did not want to talk to me. She wanted transferred back to Dominique in this encounter Plan of Treatment Upcoming Encounters Date Type Specialty Care Team Description 02/13/2018 Office Visit Family Medicine Coco Darnell DO [address] [place] [address] [address] 05/29/2018 Office Visit Dermatology Laurel Arnett MD [address] [place] [address] [place], [place] [address] [phone] Health Maintenance Due Date Last Done Comments Zoster Vaccines HMT (2 of 3) 05/15/2007 03/20/2007 Influenza Vaccine (FLU shot) (#1) 2017 12/25/2016, 01/22/2016, 11/21/2014, Additional history exists CKD URINE PROTEIN/CREATININE RATION OR URINE MICROALBUMIN YEARLY USE SMARTSET 30009 01/18/2018 01/18/2017 CKD GFR USE SMARTSET 86712 03/02/201808/31, 07/29/2017, 11/14/2016, Additional history exists CKD HGB USE SMARTSET 72242 07/29/201807/29, 03/31/2016, 08/05/2015, Additional history exists CKD PHOS USE SMARTSET 26389 07/29/201807/18, 03/31/2016, 08/06/2014 Prediabetes-Yearly Hemoglobin A1c 08/24/2018 [...]
--- OUTSIDE RECORDS SUMMARY | 2022-12-12 21:51 | External Medical Summary | Summary of Care ---
Author Name Unknown Organization [place] [address] Phone Care Team Providers Care Wood Machinist Name Role Phone Coco Darnell DO Primary Care Provider [phone] Reason for Visit * Reason Comments Encounter Created in Error Encounter Details Date Type Department Care Team Description 12/08/2017 Telephone [facility] [address] [place] [address] Coco Darnell DO [address], [place] [phone] Encounter Created in Error Allergies Active Allergy [...] 1000 units Capsule Take by mouth. Active [place] 3 1200 MG CAPS Active Biotin 1 [...] Active Problems Problem Noted Date DETECT Research Study*[id number] Overview: [facility] DETECT Study: Project # [id number], Overnight Caregiver: Jace Arrington, PhD. SUMMARY: Goal: Establish test [...] contact study staff at ; after hours Overnight Caregiver via the [facility] hospital mailhouse operator . Prediabetes 08/08/2017 Overview: Per Prediabetes [...] encounter Miscellaneous Notes * Telephone Encounter - Kirsty Miranda OSA - 12/08/2017 4:25 PM EDT Patient transferred to [place] by triage nurse. Pt is very upset with [facility]. Patient is demanding that the diagnosis of chronic kidney disease stage III be removed from her chart, and that Dr. Darnell write another letter to her insurance stating pt did not lie. Patient is also asking to speak to the site identification specialist regarding this matter. Patient is extremely adamant that this matter be addressed. Please advise. * Telephone Encounter - Risa Snyder LPN - 12/08/2017 4:07 PM EDT Pt was transferred to [place] by Dominique, dental scheduler but did not want to talk to me. She wanted transferred back to Dominique in this encounter Plan of Treatment Upcoming Encounters Date Type Specialty Care Team Description 02/13/2018 Office Visit Family Medicine Coco Darnell DO [address] [place] [address] [phone] 05/29/2018 Office Visit Dermatology Laurel Arnett MD [address] [place] [address] [place] [address] [phone] Health Maintenance Due Date Last Done Comments Zoster Vaccines HMT (2 of 3) 05/15/2007 03/20/2007 Influenza Vaccine (FLU shot) (#1) 2017 12/25/2016, 01/22/2016, 11/21/2014, Additional history exists CKD URINE PROTEIN/CREATININE RATION OR URINE MICROALBUMIN YEARLY USE SMARTSET 17720 01/18/2018 01/18/2017 CKD GFR USE SMARTSET 63171 03/02/201808/31, 07/29/2017, 11/14/2016, Additional history exists CKD HGB USE SMARTSET 09633 07/29/201807/29, 03/31/2016, 08/05/2015, Additional history exists CKD PHOS USE SMARTSET 05826 07/29/201807/18, 03/31/2016, 08/06/2014 Prediabetes-Yearly Hemoglobin A1c 08/24/2018 [...]
--- OUTSIDE RECORDS SUMMARY | 2022-12-12 21:51 | External Medical Summary | Summary of Care ---
Author Name Unknown Organization [facility] [address] Phone Care Team Providers Care Sausage Inspector Name Role Phone Coco Darnell DO Primary Care Provider [phone] Reason for Visit * Reason Comments Encounter Created in Error Encounter Details Date Type Department Care Team Description 12/08/2017 Telephone [facility] [address] [place] [address] Coco Darnell DO [address] [place], [place] [phone] Encounter Created in Error Allergies Active Allergy [...] units Capsule Take by mouth. Active [place] 3 1200 MG CAPS Active Biotin 1 [...] Active Problems Problem Noted Date DETECT Research Study*[id number] Overview: [facility] DETECT Study: Project # [id number], Wool Cleaner: Jace Arrington, PhD. SUMMARY: Goal: Establish test [...] contact study staff at ; after hours Wool Cleaner via the [facility] hospital drop machine operator . Prediabetes 08/08/2017 Overview: Per [...] 12/08/2017 4:25 PM EDT Patient transferred to ct by triage nurse. Pt is very upset with [facility]. Patient is demanding that the diagnosis of chronic kidney disease stage III be removed from her chart, and that Dr. Darnell write another letter to her insurance stating pt did not lie. Patient is also asking to speak to the supervisor capacitor processing regarding this matter. Patient is extremely adamant that this matter be addressed. Please advise. * Telephone Encounter - Risa Snyder LPN - 12/08/2017 4:07 PM EDT Pt was transferred to ct by Dominique, equipment scheduler but did not want to talk to me. She wanted transferred back to Dominique in this encounter Plan of Treatment Upcoming Encounters Date Type Specialty Care Team Description 02/13/2018 Office Visit Family Medicine Coco Darnell DO [address] [place] [address] [phone] 05/29/2018 Office Visit Dermatology Laurel Arnett MD [address] [place] [address] [place] [address] [phone] Health Maintenance Due Date Last Done Comments Zoster Vaccines HMT (2 of 3) 05/15/2007 03/20/2007 Influenza Vaccine (FLU shot) (#1) 2017 12/25/2016, 01/22/2016, 11/21/2014, Additional history exists CKD URINE PROTEIN/CREATININE RATION OR URINE MICROALBUMIN YEARLY USE SMARTSET 69262 01/18/2018 01/18/2017 CKD GFR USE SMARTSET 83671 03/02/201808/31, 07/29/2017, 11/14/2016, Additional history exists CKD HGB USE SMARTSET 91769 07/29/201807/29, 03/31/2016, 08/05/2015, Additional history exists CKD PHOS USE SMARTSET 20226 07/29/201807/18, 03/31/2016, 08/06/2014 Prediabetes-Yearly Hemoglobin A1c 08/24/2018 [...]
--- OUTSIDE RECORDS SUMMARY | 2022-12-12 21:51 | External Medical Summary | Summary of Care ---
Author Name Unknown Organization [place] [address] Phone Care Team Providers Care V Belt Mold Assembler And Curer Name Role Phone Coco Darnell DO Primary Care Provider Encounter Details Date Type Department Care Team Description 11/07/2017 Scan Encounter Unspecified Department <No scans attached> [...] 1000 units Capsule Take by mouth. Active [place] 3 1200 MG CAPS Active Biotin 1 [...] Active Problems Problem Noted Date DETECT Research Study*[id number] Overview: [facility] DETECT Study: Project # [id number], Gelatin Powder Mixer: Jace Arrington, PhD. SUMMARY: Goal: Establish test [...] contact study staff at ; after hours Gelatin Powder Mixer via the [facility] air control electronics operator . Prediabetes 08/08/2017 Overview: Per Prediabetes [...] Office Visit Dermatology Laurel Arnett MD [address] [facility], [place] [address] [phone] 02/13/2018 Office Visit Family Medicine Coco Darnell DO [address] [place] [address] [phone] Health Maintenance Due Date Last Done Comments Influenza Vaccine (FLU shot) (#1) 2017 12/25/2016, 01/22/2016, 11/21/2014, Additional history exists CKD URINE PROTEIN/CREATININE RATION OR URINE MICROALBUMIN YEARLY USE SMARTSET 56385 01/18/2018 01/18/2017 CKD GFR USE SMARTSET 38744 03/02/201808/31, 07/29/2017, 11/14/2016, Additional history exists CKD HGB USE SMARTSET 04585 07/29/201807/29, 03/31/2016, 08/05/2015, Additional history exists CKD LDL USE SMARTSET 12079 ( STAGE 3) [place] [address] (STAGE 4) 07/29/2018 07/29/2017, 11/14/2016, 08/05/2015, Additional history exists CKD PHOS USE SMARTSET 12437 07/29/201807/18, 03/31/2016, 08/06/2014 Prediabetes-Yearly Hemoglobin A1c 08/24/2018 018 DXA-SCREENING EVERY 7 YRS-US E SMARTSET# 3348 [...]
--- OUTSIDE RECORDS SUMMARY | 2022-12-12 21:51 | External Medical Summary | Summary of Care ---
Author Name Unknown Organization [place] [address] Phone Care Team Providers Care Aeronautical Engineering Technologist Name Role Phone Coco Darnell DO Primary Care Provider [phone] Reason for Visit * Reason Comments Encounter Created in Error Encounter Details Date Type Department Care Team Description 12/08/2017 Telephone [facility] [address] [place] [address] Coco Darnell DO [address] [place], [place] [phone] Encounter Created in Error Allergies Active Allergy [...] 1000 units Capsule Take by mouth. Active [place] 3 1200 MG CAPS Active Biotin 1 [...] Active Problems Problem Noted Date DETECT Research Study*[id number] Overview: [facility] DETECT Study: Project # [id number], Tank Truck Loader: Jace Arrington, PhD. SUMMARY: Goal: Establish test [...] contact study staff at ; after hours Tank Truck Loader via the [facility] spray drier operator . Prediabetes 08/08/2017 Overview: Per [...] 12/08/2017 4:25 PM EDT Patient transferred to [place] by triage nurse. Pt is very upset with [facility]. Patient is demanding that the diagnosis of chronic kidney disease stage III be removed from her chart, and that Dr. Darnell write another letter to her insurance stating pt did not lie. Patient is also asking to speak to the field mechanic/site lead regarding this matter. Patient is extremely adamant that this matter be addressed. Please advise. * Telephone Encounter - Risa Snyder LPN - 12/08/2017 4:07 PM EDT Pt was transferred to [place] by Dominique, operating room scheduler but did not want to talk to me. She wanted transferred back to Dominique in this encounter Plan of Treatment Upcoming Encounters Date Type Specialty Care Team Description 02/13/2018 Office Visit Family Medicine Coco Darnell DO [address] [place] [address] [phone] 05/29/2018 Office Visit Dermatology Laurel Arnett MD [address] [place] [address] [place] [address] [phone] Health Maintenance Due Date Last Done Comments Zoster Vaccines HMT (2 of 3) 05/15/2007 03/20/2007 Influenza Vaccine (FLU shot) (#1) 2017 12/25/2016, 01/22/2016, 11/21/2014, Additional history exists CKD URINE PROTEIN/CREATININE RATION OR URINE MICROALBUMIN YEARLY USE SMARTSET 25598 01/18/2018 01/18/2017 CKD GFR USE SMARTSET 87096 03/02/201808/31, 07/29/2017, 11/14/2016, Additional history exists CKD HGB USE SMARTSET 64884 07/29/201807/29, 03/31/2016, 08/05/2015, Additional history exists CKD PHOS USE SMARTSET 73764 07/29/201807/18, 03/31/2016, 08/06/2014 Prediabetes-Yearly Hemoglobin A1c 08/24/2018 [...]
--- OUTSIDE RECORDS SUMMARY | 2022-12-12 21:52 | External Medical Summary | Summary of Care ---
Author Name Unknown Organization [place] [address] Phone Care Team Providers Care Catering Service Manager Name Role Phone Coco Darnell DO Primary Care Provider [phone] Reason for Visit * Reason Comments RECHECK Encounter Details Date Type Department Care Team Description 08/11/2017 Office Visit [place] [address] [place] [address] Coco Darnell DO [address] [place] [address] [phone] Benign hypertension with CKD (chronic kidney disease) stage III*;HTN, goal below 140/90;Excessive sweating;Hyperglycemia Allergies Active Allergy Reactions Severity Noted Date [...] 1000 units Capsule Take by mouth. Active [place] 3 1200 MG CAPS Active Biotin 1 [...] nostril daily. 1 Inhaler 5 05/18/2017 Active as of this encounter Active Problems Problem Noted Date DETECT Research Study*[id number] Overview: [facility] DETECT Study: Project # [id number], Oil Distributor Tender: Jace Arrington, PhD. SUMMARY: Goal: Establish test [...] contact study staff at ; after hours Oil Distributor Tender via the [facility] bore mill operator for plastic . Prediabetes 08/08/2017 Overview: Per Prediabetes protocol [...] Vital Sign Reading Time Taken Blood Pressure 124/78 08/11/2017 3:10 PM EDT Pulse 74 08/11/2017 3:10 PM EDT Temperature 36.7 °C (98 °F) 08/11/2017 3:1 0 PM EDT Respiratory Rate 16 08/11/2017 3:10 PM EDT Oxygen Saturation - - Inhaled Oxygen Concentration - - Weight 72.2 kg (159 lb 1.6 oz) 08/12/19 18 3:10 PM EDT Height - - Body Mass Index 27.31 08/11/2017 3:10 PM EDT in this encounter Progress Notes * Coco Darnell DO - 08/11/2017 3:17 PM EDT Formatting of this note may be different from the original. SUBJECTIVE: Chief Complaint Patient presents with • RECHECK HPI: Laurel Rios is a 77 year old female who presents today for recheck. Pt notes that she continues to have issues with constipation. Pt notes that she had been working with the FODMAP diet. She notes that she continues to have issues with not going to the bathroom regularly. She was considering Linzess but is concerned about taking a new medication. Pt states that she will sweat quite a bit in the summer. It is worse in the summer. She notes that she does not feel that she is tolerant to the heat. She thinks that she sweats quite a bit. Previousthyroid studies are normal. She is trying to use a certain deodorant. PHM: Patient Active Problem List Diagnosis Code [...] without heart failure I11.9 • Prediabetes R73.03 Current Outpatient Prescriptions Medication Sig Dispense Refill • Ascorbic Acid (VITAMIN C) 1000 MG Tablet Take 1,000 mg by mouth daily. • ASPIRIN 81 MG PO TABS 2 daily • Biotin 1 MG Capsule • Cholecalciferol (VITAMIN D-3) 1000 units Capsule Take by mouth. • cyclosporine (RESTASIS) 0.05 % ophthalmic emulsion [...] • DULoxetine (CYMBALTA) 20 MG CPEP • fluticasone (FLONASE) 50 MCG/ACT nasal spray Administer 2 Sprays into each nostril daily. 1 Inhaler 5 • gabapentin (NEURONTIN) 100 MG Capsule Take 3 times a day 1 Cap 0 • NAPROXEN SODIUM 220 MG PO CAPS 1 daily • [place] 3 1200 MG CAPS • PARoxetine (PAXIL) 30 MG Tablet Take 1 Tab by mouth daily. 90 Tab 3 • polyethylene glycol 3350 (MIRALAX) 255 gram powder Take 17 g by mouth as needed for Constipation. Dissolve one heaping tablespoon in 8 ounces of water or juice. 1 Bottle 2 • PROGESTERONE 1000 MG/60GM EX CREA apply once daily • RED YEAST RICE 600 MG PO CAPS 1 daily • STOOL SOFTENER 100 MG PO TABS 1 tablet daily as needed for constipation • tiZANidine (ZANAFLEX) 4 MG Tablet Take 0.5 Tabs by mouth. 1 Tab 0 • valsartan (DIOVAN) 80 MG Tablet Take 1 Tab by mouth daily. 90 Tab 1 Past Medical History: Diagnosis Date • Cervicalgia [...] by Ruslan Kelly MD at ENDOSCOPY [facility] • GENITAL SURGERY PROCEDURE NEC [...] fatigue and No fevers, sweats, or chills Mouth/Throat ROS: No bleeding gums, No thrush or No sore throat Pulmonary ROS: No cough or sputum. No wheezing, No shortness of breath Cardiovascular ROS: No chest pain, No shortness of breath, No dyspnea on exertion, No orthopnea Gastrointestinal ROS: No abdominal pain, No change in bowel habits, No nausea, vomiting, diarrhea, or constipation Musculoskeletal/Extremities ROS: No pain, redness or swelling on the joints Skin/Integumentary ROS: No edema, No rash and No itching OBJECTIVE: BP 124/78 | Pulse 74 | Temp (Src) 98 (Tympanic) | Resp 16 | Wt 159 lbs 1.6 oz (72.167kg) | BMI 27.31 kg/m² | BSA 1.81 m² PHYSICAL EXAM: General: alert, no distress, well nourished and well developed Head: Normocephalic, No masses, lesions, tenderness or abnormalities Oropharynx: no exudate, no erythema, lips, buccal mucosa, and tongue normal and mucous membranes are moist Heart: regular rate & rhythm, no murmurs and no gallops Lungs: chest symmetric with normal AP diameter, no chest deformities noted, no chest wall tenderness, lungs clear to auscultation Abdomen: abdomen soft, non-tender, normal bowel sounds and no masses or organomegaly Extremities: no joint deformities, effusion, or inflammation, no edema, no cyanosis Skin: skin color, texture, turgor are normal, no rashes or significant lesions ASSESSMENT/PLAN: I12.9, N18.3 Benign hypertension with ckd (chronic kidney disease) stage iii (primary encounter diagnosis) Plan: Pt currently stable. Continue on current regimen. I10 Htn, goal below 140/90 Plan: BP controlled. She will continue on current regimen. R61 Excessive sweating Plan: Pt with some excessive sweating. Will check TSH. Discussed lifestyle modification. Lab: 1. Tsh w/ft4 if tsh is indicated Future expected: 08/11/2017 R73.9 Hyperglycemia Plan: Pt will complete HgBA1C for further evaluation. Will await results and make further recommendations if needed. Lab: 1. Hemoglobin a1c Future expected: 08/11/2017 Follow-up: As needed and for routine care. Coco Darnell DO in this encounter Nursing Notes * Liliam Krueger LPN - 08/11/2017 3:09 PM EDT Patient presents today for 3 month recheck. in this encounter Plan of Treatment Upcoming Encounters Date Type Specialty Care Team Description 09/11/2017 Imaging Radiology 09/18/2017 Office Visit Gastroenterology Ruslan Kelly MD [address] [place] [address] [phone] 11/28/2017 Office Visit Dermatology Laurel Arnett MD [address] [facility] [place] [address] [phone] 02/13/2018 Office Visit Family Medicine Coco Darnell DO [address] [place] [address] [id number] Health Maintenance Due Date Last Done Comments CKD URINE PROTEIN/CREATININE RATION OR URINE MICROALBUMIN YEARLY USE SMARTSET 09786 01/18/2018 01/18/2017 CKD GFR USE SMARTSET 11706 03/02/201808/31, 07/29/2017, 11/14/2016, Additional history exists CKD HGB USE SMARTSET 76859 07/29/201807/29, 03/31/2016, 08/05/2015, Additional history exists CKD LDL USE SMARTSET 03785 ( STAGE 3) [place] [address] (STAGE 4) 07/29/2018 07/29/2017, 11/14/2016, 08/05/2015, Additional history exists CKD PHOS USE SMARTSET 69625 07/29/201807/18, 03/31/2016, 08/06/2014 DXA-SCREENING EVERY 7 YRS-US E SMARTSET# 3348 TO ORDER 03/15/2019 03/15/2012 DIABETES SCREEN EVERY 3 YRS- AGE 45 AND ABOVE 08/31/2020 08/31/2017, 08/24/2017, 07/29/2017, Additional history exists DTaP,Tdap,and Td Vaccines (2 - Td) 12/19/20212011 COLONOSCOPY-EVERY 5 YRS AGES 18-100 12/29/2021 12/29/2016, 12/29/2016 PNEUMOCOCCAL ADULT 65 YRS AND OVER Completed 10/13/2016, 07/08/2015, 08/16/2002 Influenza Vaccine (FLU shot) Completed 10/2016, 01/22/2016, 11/21/2014, Additional history exists as of this encounter Implants Not on fileas of this encounter Results * HEMOGLOBIN A1C (08/24/2017 1:37 PM) Component Value Ref Range HEMOGLOBIN, A1C 5.8 Comment: The use of HbA1c to monitor glycemic status is based on normal hemoglobin and HbA composition. This test should not be used in patients with abnormal hemoglobin that affects the half life of the red blood cell or the in vivo glycation rates. 4.0 - 6.4 % EST AVG GLUCOSE 120 <126 MG/DL Specimen Performing Laborator y [facility] [address] [place] [address] * TSH W/FT4 IF TSH IS INDICATED (08/24/2017 1:37 PM) Component Value Ref Range TSH 1.69 0.27 - 4.2 uIU/m L FREE T4 REFLEXIVE NOT APPLICABLE 0.9 - 1.7 ng/d L Specimen Performing Laborator y [facility] [address] [place] [address] in this encounter Visit Diagnoses Diagnosis Benign hypertension with CKD (chronic kidney disease) stage III - Primary Benign hypertensive kidney disease with chronic kidney disease stage I through stage IV, or unspecified HTN, goal below 140/90 Unspecified essential hypertension Excessive sweating Generalized hyperhidrosis Hyperglycemia Other abnormal glucose in this encounter"
--- OUTSIDE RECORDS SUMMARY | 2022-12-12 21:52 | External Medical Summary ---
Author Name Unknown Address [address] [place] [address] Phone Organization K01:[facility] [id number] Laboratory Report Ordering Provider Test Date Status MANISH BAUMAN 07/29/2017 09:31:00 Final Observation Date Value Abnormality Reference Status Parathyrin.intact [Mass/volu me] in Serum or Plasma 07/29/2017 20:04 46 15-65 Final Performing Location [address] [address]
--- OUTSIDE RECORDS SUMMARY | 2022-12-12 21:52 | External Medical Summary ---
Author Name Unknown Address [address] [place] [address] Phone Organization K01:[facility] [id number] Laboratory Report Ordering Provider Test Date Status MITULMANISH 08/24/2017 13:37:00 Final Observation Date Value Abnormality Reference Status TSH 08/24/2017 22:15 1.69 0.27-4.2 Fin al T4, Free 08/24/2017 22:15 NOT APPLICABLE 0.9-1.7 Final Performing Location [address] [address]
--- OUTSIDE RECORDS SUMMARY | 2022-12-12 21:52 | External Medical Summary ---
Author Name Unknown Address 132 [facility] [place] [address] Phone Organization K0G:[facility] [facility] [place] [address] Laboratory Report Ordering Provider Test Date Status GABRIELA LOU 08/31/2017 14:13:00 Final Observation Date Value Abnormality Reference Status BUN 08/31/2017 15:34 19 6-20 Fin al Creatinine 08/31/2017 15:34 1.1 Above high normal 0.5- 1.0 Final Performing Location [facility] [employer] [address] [facility] [place] [address]
--- OUTSIDE RECORDS SUMMARY | 2022-12-12 21:52 | External Medical Summary | Summary of Care ---
Author Name Unknown Organization [place] [address] Phone Care Team Providers Care Cut Plug Packer Name Role Phone Coco Darnell Primary Care Provider Reason for Visit * Reason Comments TEST RESULTS Encounter Details Date Type Department Care Team Description 09/15/2017 Telephone Gastroenterology, [facility] 132 [facility] [place] [address] Gissel Coker MD [address] [facility] [place] [address] TEST RESULTS Allergies Active Allergy Reactions Severity Noted Date [...] 1000 units Capsule Take by mouth. Active [place] 3 1200 MG CAPS Active Biotin 1 [...] Active Problems Problem Noted Date DETECT Research Study*[id number] Overview: [facility] [place] DETECT Study: Project # [id number], Therapy Aide: Jace Arrington, PhD. SUMMARY: Goal: Establish test [...] contact study staff at ; after hours Therapy Aide via the [facility] hospital freezer machine operator . Prediabetes 08/08/2017 Overview: Per [...] Encounters Date Type Specialty Care Team Description 09/18/2017 Office Visit Gastroenterology Ruslan Kelly MD [address] [place] [address] [phone] 11/28/2017 Office Visit Dermatology Laurel Arnett MD 200 [place] [address] [phone] 02/13/2018 Office Visit Family Medicine Coco Darnell, [address] [place] [address] Health Maintenance Due Date Last Done Comments CKD URINE PROTEIN/CREATININE RATION OR URINE MICROALBUMIN YEARLY USE SMARTSET 07472 01/18/2018 01/18/2017 CKD GFR USE SMARTSET 52349 03/02/201808/31, 07/29/2017, 11/14/2016, Additional history exists CKD HGB USE SMARTSET 79010 07/29/201807/29, 03/31/2016, 08/05/2015, Additional history exists CKD LDL USE SMARTSET 13136 ( STAGE 3) [place] [address] (STAGE 4) 07/29/2018 07/29/2017, 11/14/2016, 08/05/2015, Additional history exists CKD PHOS USE SMARTSET 19106 07/29/201807/18, 03/31/2016, 08/06/2014 DXA-SCREENING EVERY 7 YRS- E SMARTSET# 4201 TO ORDER 03/15/2019 03/15/2012 DIABETES SCREEN EVERY [...]
--- OUTSIDE RECORDS SUMMARY | 2022-12-12 21:52 | External Medical Summary ---
Author Name Unknown Address [address] [place] [address] Phone Organization K0G:[facility] Angelika [facility] 132 [facility] [place] [address] Laboratory Report Ordering Provider Test Date Status MANISH BAUMAN 07/29/2017 09:31:00 Final Observation Date Value Abnormality Reference Status WBC, Total 07/29/2017 09:48 4.69 4.00-10.80 F inal RBC 07/29/2017 09:48 4.48 3.85-5.15 Fin al Hemoglobin 07/29/2017 09:48 13.5 12.0-15.3 Fi nal HCT 07/29/2017 09:48 38.9 36.0-45.2 Fin al MCV 07/29/2017 09:48 86.8 81.5-97.5 Fin al MCH 07/29/2017 09:48 30.1 27.0-34.0 Fin al MCHC 07/29/2017 09:48 34.7 32.0-36.0 Fin al RDW 07/29/2017 09:48 11.7 11.5-15.5 Fin al Platelets 07/29/2017 09:48 266 140-400 Fin al MPV 07/29/2017 09:48 9.4 6.6-11.1 Fin al Segs 07/29/2017 09:48 68.9 40-75 Fin al Lymphs % 07/29/2017 09:48 19.6 18-42 Fin al Monos 07/29/2017 09:48 8.3 1-11 Fin al Eosinophils 07/29/2017 09:48 2.6 0-6 F inal Basos 07/29/2017 09:48 0.6 0-2 Fin al Absolute Segs 07/29/2017 09:48 3.23 1.8-7.7 Final Lymphs, absolute 07/29/2017 09:48 0.92 Below low normal 1.0-4.8 Final Monos, Abs 07/29/2017 09:48 0.39 0.0-1.1 Fi nal Eos, Abs 07/29/2017 09:48 0.12 0.0-0.7 Fin johann Danielsonos, Abs 07/29/2017 09:48 0.03 0.0-0.2 Fi nal Performing Location [address] [place] [address]
--- OUTSIDE RECORDS SUMMARY | 2022-12-12 21:52 | External Medical Summary | Summary of Care ---
Author Name Unknown Organization [place] [address] Phone Care Team Providers Care Sack Sewer Machine Name Role Phone Coco Darnell DO Primary Care Provider [phone] Encounter Details Date Type Department Care Team Description 07/31/2017 Orders Only Outcomes Research Department [address] [place] [address] Tracey Garcia Angelika [address] [place] [address] [place] Research Other*[id number] Allergies Active Allergy Reactions Severity Noted Date [...] 1000 units Capsule Take by mouth. Active [place] 3 1200 MG CAPS Active Biotin 1 [...] this encounter Active Problems Problem Noted Date HTN, goal below 140/90 01/18/2017 Benign hypertension [...] Encounters Date Type Specialty Care Team Description 08/11/2017 Office Visit Family Practice Coco Darnell DO [address] [place] [address] [id number] 11/28/2017 Office Visit Dermatology Laurel Arnett MD 200 [facility] [place] [address] [phone] Scheduled Tests Name Priority Associated Diagnoses Order S chedule MYCODE SUBSEQUENT ADULT Routine MyCode Research Other*[id number] Every 6 Months for 2 Occurrences starting 07/31/2017 until 08/20/2018 Health Maintenance Due Date Last Done Comments *DEPRESSION SCREENING, UNIQUE [place] FOR PTS 18 AND OVER 01/15/2017 CKD URINE PROTEIN/CREATININE RATION OR URINE MICROALBUMIN YEARLY USE SMARTSET 66877 01/18/2018 01/18/2017 CKD GFR USE SMARTSET 00201 01/29/201807/29, 11/14/2016, 03/31/2016, Additional history exists CKD HGB USE SMARTSET 40355 07/29/201807/29, 03/31/2016, 08/05/2015, Additional history exists CKD LDL USE SMARTSET 26635 ( STAGE 3) [place] 85[address] (STAGE 4) 07/29/2018 07/29/2017, 11/14/2016, 08/05/2015, Additional history exists CKD PHOS USE SMARTSET 20176 07/29/201807/18, 03/31/2016, 08/06/2014 DXA-SCREENING EVERY 7 YRS-US E SMARTSET# 3348 TO ORDER 03/15/2019 03/15/2012 DIABETES SCREEN EVERY 3 YRS- AGE 45 AND ABOVE 07/29/2020 07/29/2017, 11/14/2016, 03/31/2016, Additional history exists DTaP,Tdap,and Td Vaccines (2 - Td) 12/19/20212011 COLONOSCOPY-EVERY 5 YRS AGES 18-100 12/29/2021 12/29/2016, 12/29/2016 PNEUMOCOCCAL ADULT 65 YRS AND OVER Completed 10/13/2016, 07/08/2015, 08/16/2002 Influenza Vaccine (FLU shot) Completed 10/2016, 01/22/2016, 11/21/2014, Additional history exists as of this encounter Implants Not on fileas of this encounter Visit Diagnoses Diagnosis MYCODE RESEARCH OTHER*[id number] in this encounter
--- OUTSIDE RECORDS SUMMARY | 2022-12-12 21:52 | External Medical Summary ---
Author Name Unknown Address 132 [facility] [place] [address] Phone Organization K0G:[facility] Angelika Garcia 132 [facility] [place] [address] Laboratory Report Ordering Provider Test Date Status MANISH BAUMAN 07/29/2017 09:31:00 Final Observation Date Value Abnormality Reference Status Phosphate 07/29/2017 10:28 3.4 2.5-4.8 Fin al Performing Location [facility] Angelika Garcia 132 [facility] [place] [address]
--- OUTSIDE RECORDS SUMMARY | 2022-12-12 21:52 | External Medical Summary | Summary of Care ---
Author Name Unknown Organization [place] [address] Phone Care Team Providers Care Pediatrician Managing Partner Name Role Phone Coco Darnell Primary Care Provider [phone] Reason for Referral * Precert (Routine) Status Reason Specialty Diagnoses / Procedures Referred By Contact Referred To Contact Pending Review Precert Radiology Diagnoses Abdominal bloating Procedures CT LIVER 4-PHASE W WO IV CONTRAST - WO ORAL CONT Gissel Coker MD [address] [place] [address] Reason for Visit * Reason Comments RECHECK Encounter Details Date Type Department Care Team Description 08/31/2017 Office Visit Gastroenterology, [facility] 132 [facility] [place] [address] Gissel Coker MD [address] [place] [address] Abdominal bloating* Allergies Active Allergy Reactions Severity [...] 1000 units Capsule Take by mouth. Active [place] 3 1200 MG CAPS Active Biotin 1 [...] Active Problems Problem Noted Date DETECT Research Study*[id number] Overview: [facility] DETECT Study: Project # [id number], Cna Ltc: Jace Arrington, PhD. SUMMARY: Goal: Establish test [...] contact study staff at ; after hours Cna Ltc via the [facility] hospital tour operator . Prediabetes 08/08/2017 Overview: Per Prediabetes [...] Vital Sign Reading Time Taken Blood Pressure 124/66 08/31/2017 1:43 PM EDT Pulse - - Temperature 36.7 °C (98.1 °F) 08/31/2017 1 :43 PM EDT Respiratory Rate - - Oxygen Saturation - - Inhaled Oxygen Concentration - - Weight 70.8 kg (156 lb) 08/31/2017 1:43 PM EDT Height - - Body Mass Index 26.78 08/31/2017 1:43 PM EDT in this encounter Progress Notes * Gissel Coker MD - 08/31/2017 2:03 PM EDT Formatting of this note may be different from the original. Follow-up visit Seen by Dr. Kelly prior to her colonscopy before and Lorella in clinic Here today for feeling bloated and her abdomen feeling distended HPI: 77 yo fm with a history of depression, htn, hl, hypothyroidism (normal TSH), IBS, here today for concerns for ongoing issues with bloating and feeling like her abdomen is more distended. She had a colonscopy in 01/03 showing two polyps (ascending colon tubular adenoma), hyperplastic polyp). She reportedly had been seen in GI clinic before in 02/03 and discussed the low fodmap diet with Sebastián. Apparently, after that visit, she was slightly confused about what kefir was that was recommended to her and did not like taking it despite the suggestion from GI in the past due to her lactose intolerance. She has since cut out the kefir. She is taking bentyl four times a day, miralax prn. She is having daily formed bm's. She is on paxil 30 mg a day, neurontin 100 mg tid, and cymbalta 20 mg po daily. She feels like lately she has felt more bloated and feels like her belly is more distended especially over the last few weeks. She tried some lemon in water yesterday and felt like that really helped her symptoms. She did not try it again today. She tried some exercise today and that helped her symptoms. She has not intentionally lost weight, no changed in her bowel movements since her last colonscopy especially bloody bowel movements. She has no fevers, chills. She reports compliance with a low fodmap diet, consistency with a gluten free/lactose free diet, mild exercise, compliance with her psychiatric medications. Current Outpatient Prescriptions Medication Sig Dispense Refill [...] hours. affected eye(s) 32 Vial 11 • DULoxetine (CYMBALTA) 20 MG CPEP • gabapentin (NEURONTIN) 100 MG Capsule Take 3 times a day 1 Cap 0 • NAPROXEN SODIUM 220 MG PO CAPS 1 daily • [place] 3 1200 MG CAPS • PARoxetine (PAXIL) [...] Tab by mouth daily. 90 Tab 1 diazepam (VALIUM) 5 MG Tablet TAKE 1/2 TO ONE TABLET UP TO TWICE A DAY NEEDED FOR MUSCLE SPASM 180 Tab 1 dicyclomine (BENTYL) 10 MG Capsule Take 1 Cap by mouth 4 times a day as needed for Cramping. For abdominal pain 120 Cap 5 fluticasone (FLONASE) 50 MCG/ACT nasal spray Administer 2 Sprays into each nostril daily. 1 Inhaler5 ROS: Constitutional: No report of fever, chills, night sweats. There have been no non-intentional weightchanges. GI: Per HPI, otherwise negative. Physical Exam Constitutional: BP 124/66 | Temp 98.1 | Wt 156 lbs (70.761kg) | BMI 26.78 kg/m² | BSA 1.79 m² CV: Heart is regular without murmur, rub or keagan. Pulm: Clear to percussion and auscultation. GI: Abdomen is soft, non-tender, with normo-active bowel sounds in all four quadrants. No hepatosplenomegaly is appreciated. No masses are palpated. No guarding or rebound is noted. Recent TSH reviewed Colonscopy 01/03 reviewed A/P: 77 yo fm with a history of known ibs for 40 years, now here today for worsening bloating and feeling like her abdomen is more distended. Would check labs and celiac ab panel. Would consider CT imaging of her abdomen. If imaging is negative and given colonscopy 8 months ago, would consider her symptoms to be from IBS. She is already on a low fodmap diet, gluten free diet, lactose free diet, exercising, trying Bentyl, and also on Paxil and seeing psychiatry for biofeedback. I encouraged her in her efforts of lifestyle modification that she is doing and did tell her to continue with the lemon in water to see if that helps to improve her symptoms as she felt some relief yesterday. She can follow-up prn in clinic. Gissel Coker MD in this encounter Nursing Notes * Sharlene Ying RN - 08/31/2017 1:40 PM EDT Formatting of this note may be different from the original. Chief Complaint Patient presents with • RECHECK Patient reporting after following FODMAP diet, having no relief in symptoms. Hx of IBS for 40 years. Feels boated all the time and has alternating bowel habits between diarrhea and constipation. Follows gluten free diet. Also reports seeing psych to try to help with abdominal symptoms. Hx of PTSD. in this encounter Plan of Treatment Upcoming Encounters Date Type Specialty Care Team Description 09/11/2017 Imaging Radiology 11/28/2017 Office Visit Dermatology Laurel Arnett MD 200 [facility] [place] [address] [phone] 02/13/2018 Office Visit Family Medicine Coco Darnell DO [address] [place] [address] [id number] Pending Results Name Priority Associated Diagnoses Date/Ti me COMPR METAB PANEL Routine Abdominal bloating 08/31/2017 2:13 PM EDT TISSUE TRANSGLUTAMINASE IGA AB Routine Abdominal bloating 08/31/2017 2:13 PM EDT Scheduled Tests Name Priority Associated Diagnoses Order S chedule COMPR METAB PANEL Routine Abdominal bloating Expected: 08/31/2017 (Approximate), Expires: 12/01/2017 TISSUE TRANSGLUTAMINASE IGA AB Routine Abdominal bloating Expected: 08/31/2017 (Approximate), Expires: 12/01/2017 CT LIVER 4-PHASE W WO IV CONTRAST - WO ORAL CONT Routine Abdominal bloating Expected: 08/31/2017, Expires: 08/31/2018 Health Maintenance Due Date Last Done Comments CKD URINE PROTEIN/CREATININE RATION OR URINE MICROALBUMIN YEARLY USE SMARTSET 84104 01/18/2018 01/18/2017 CKD GFR USE SMARTSET 01595 01/29/201807/29, 11/14/2016, 03/31/2016, Additional history exists CKD HGB USE SMARTSET 53196 07/29/201807/29, 03/31/2016, 08/05/2015, Additional history exists CKD LDL USE SMARTSET 86167 ( STAGE 3) [place] [address] (STAGE 4) 07/29/2018 07/29/2017, 11/14/2016, 08/05/2015, Additional history exists CKD PHOS USE SMARTSET 09149 07/29/201807/18, 03/31/2016, 08/06/2014 DXA-SCREENING EVERY 7 YRS-US E SMARTSET# 3348 TO ORDER 03/15/2019 03/15/2012 DIABETES SCREEN EVERY 3 YRS- AGE 45 AND ABOVE 08/24/2020 08/24/2017, 07/29/2017, 11/14/2016, Additional history exists DTaP,Tdap,and Td Vaccines (2 [...] Flatulence, eructation, and gas pain in this encounter"
--- OUTSIDE RECORDS SUMMARY | 2022-12-12 21:52 | External Medical Summary ---
Author Name Unknown Address [address] [place] [address] Phone Organization K01:[facility] [id number] Laboratory Report Ordering Provider Test Date Status MANISH BAUMAN 08/24/2017 13:37:00 Final Observation Date Value Abnormality Reference Status HbA1C 08/24/2017 22:07 5.8 4.0-6.4 Fin al Performing Location [address] [address]
--- OUTSIDE RECORDS SUMMARY | 2022-12-12 21:52 | External Medical Summary | Summary of Care ---
Author Name Unknown Organization [place] [address] Phone Care Team Providers Care Floating Operator Name Role Phone Coco Darnell Primary Care Provider [phone] Reason for Visit * Reason Comments ABNORMAL TEST RESULTS Significant Abnorm al Result Encounter Details Date Type Department Care Team Description 09/14/2017 Telephone Gastroenterology, Yaron Rinaldi [address] [place] [address] Carmine Ochoa MD [address] [place] [address] ABNORMAL TEST RESULTS (Significant Abnorma... Allergies Active Allergy Reactions Severity Noted Date [...] 1000 units Capsule Take by mouth. Active [place] 3 1200 MG CAPS Active Biotin 1 [...] Active Problems Problem Noted Date DETECT Research Study*[id number] Overview: [facility] DETECT Study: Project # [id number], Airplane Electrician: Jace Arrington, PhD. SUMMARY: Goal: Establish test [...] contact study staff at ; after hours Airplane Electrician via the [facility] pipe bending machine operator . Prediabetes 08/08/2017 Overview: Per [...] encounter Miscellaneous Notes * Telephone Encounter - Fede Fontenot, MARIFER - 09/14/2017 4:17 PM EDT The radiologist discovered a significant abnormal finding today on an CT ABD/PELVIS on ,and asks that you please bring the report to the attention of CARMINE OCHOA MD as soon as possible today. Thank you. in this encounter Plan of Treatment Upcoming Encounters Date Type Specialty Care Team Description 09/18/2017 Office Visit [facility]astro[facility]ology [facility] [address] [phone] 11/28/2017 Office Visit Dermatology Laurel Arnett MD 200 [place] [address] [phone] 02/13/2018 Office Visit Family Medicine Coco Darnell DO [address] [place] [id number] Health Maintenance Due Date Last Done Comments Influenza Vaccine (FLU shot) (#1) 2017 12/25/2016, 01/22/2016, 11/21/2014, Additional history exists CKD URINE PROTEIN/CREATININE RATION OR URINE MICROALBUMIN YEARLY USE SMARTSET 77275 01/18/2018 01/18/2017 CKD GFR USE SMARTSET 24616 03/02/201808/31, 07/29/2017, 11/14/2016, Additional history exists CKD HGB USE SMARTSET 41100 07/29/201807/29, 03/31/2016, 08/05/2015, Additional history exists CKD LDL USE SMARTSET 83614 ( STAGE 3) [place] [address] (STAGE 4) 07/29/2018 07/29/2017, 11/14/2016, 08/05/2015, Additional history exists CKD PHOS USE SMARTSET 92857 07/29/201807/18, 03/31/2016, 08/06/2014 DXA-SCREENING EVERY 7 YRS-US [...]
--- OUTSIDE RECORDS SUMMARY | 2022-12-12 21:52 | External Medical Summary | Summary of Care ---
Author Name Unknown Organization [place] [address] Phone Care Team Providers Care Stockfeed Miller Name Role Phone Coco Darnell DO Primary Care Provider Reason for Visit * Reason Comments Research Study Patient DETECT Consenting Encounter Details Date Type Department Care Team Description 08/28/2017 [facility] 132 [facility] [place] [address] Team, Kaycee [facility] Study [address] [facility] [place] [address] DETECT Research Study*[id number]* Allergies Active Allergy Reactions Severity Noted Date [...] 1000 units Capsule Take by mouth. Active [place] 3 1200 MG CAPS Active Biotin 1 [...] Active Problems Problem Noted Date DETECT Research Study*[id number] Overview: [facility] DETECT Study: Project # [id number], Thread Reeler: Jace Arrington, PhD. SUMMARY: Goal: Establish test [...] contact study staff at ; after hours Thread Reeler via the [facility] hospital reeling machine operator . Prediabetes 08/08/2017 Overview: Per [...] Not on file as of this encounter Progress Notes * Celia Leigh, [facility] - 08/28/2017 1:46 PM EDT Laurel Rios is a 77 year old female who is being seen today for possible entry into the DETECT study (Detecting Cancers Earlier Through Elective Mutation-Based Blood Collection and Testing). Informed Consent The consent document for the DETECT study was thoroughly discussed with the patient. Laurel Rios read the consent document and had the opportunity to ask questions regarding the study. All questions were answered to the satisfaction of the patient. Laurel Rios desires to enter the study and signed the IRB-approved consent form, version 07/10/2017 on 08/28/2017 @ 1PM prior to any study procedures. The consent form can be referenced in the following locations: · The original signed consent form is located in the patient's research study file. · The signed consent form will be scanned into the patient's medical record in [facility]. · A copy of the signed consent form was given to the patient. Inclusion/ Exclusion Criteria Were the Inclusion/Exclusion criteria reviewed and documented on the Inclusion Exclusion sheet? Yes Epic Problem List Was the study added to the subject’s Problem List (without a description/overview) in [facility]? Yes Instructions The subject was provided with the following instructions: ? A future visit may be scheduled based on these results. in this encounter Plan of Treatment Upcoming Encounters Date Type Specialty Care Team Description 09/18/2017 Office Visit Gastroenterology Ruslan Kelly MD 132 [facility] [place] [address] [phone] 11/28/2017 Office Visit Dermatology Laurel Arnett MD 200 [facility], [place] [address] [phone] 02/13/2018 Office Visit Family Medicine Coco Darnell DO [address] [place] [address] [phone] Health Maintenance Due Date Last Done Comments CKD URINE PROTEIN/CREATININE RATION OR URINE MICROALBUMIN YEARLY USE SMARTSET 34208 01/18/2018 01/18/2017 CKD GFR USE SMARTSET 33932 01/29/201807/29, 11/14/2016, 03/31/2016, Additional history exists CKD HGB USE SMARTSET 84817 07/29/201807/29, 03/31/2016, 08/05/2015, Additional history exists CKD LDL USE SMARTSET 38811 ( STAGE 3) [place] [address] (STAGE 4) 07/29/2018 07/29/2017, 11/14/2016, 08/05/2015, Additional history exists CKD PHOS USE SMARTSET 29182 07/29/201807/18, 03/31/2016, 08/06/2014 DXA-SCREENING EVERY 7 YRS-US [...] fileas of this encounter Visit Diagnoses Diagnosis DETECT Research Study*[id number] - Primary in this encounter
--- OUTSIDE RECORDS SUMMARY | 2022-12-12 21:52 | External Medical Summary | Summary of Care ---
Author Name Unknown Organization [place] [address] Phone Care Team Providers Care Operating Room Specialist Name Role Phone Coco Darnell Primary Care Provider Reason for Referral * Precert (Routine) Status Reason Specialty Diagnoses / Procedures Referred By Contact Referred To Contact Pending Review Precert Radiology Diagnoses Abdominal bloating Procedures CT ABD/PELVIS W IV CONTRAST - WO ORAL CONTRAST Gissel Coker MD [address] [place] [address] Encounter Details Date Type Department Care Team Description 09/11/2017 Orders Only Gastroenterology, [facility] [address] [facility] [place] [address] Gissel Coker MD [address] [place] [address] Abdominal bloating* Allergies Active Allergy [...] 1000 units Capsule Take by mouth. Active [place] 3 1200 MG CAPS Active Biotin 1 [...] Active Problems Problem Noted Date DETECT Research Study*[id number] Overview: [facility] [place] DETECT Study: Project # [id number], Student Records Specialist: Jace Arrington, PhD. SUMMARY: Goal: Establish [...] study staff at ; after hours Student Records Specialist via the [facility] hospital soldering machine operator automatic . Prediabetes 08/08/2017 Overview: Per Prediabetes protocol [...] as of this encounter Progress Notes * Sharlene Ying RN - 09/11/2017 1:04 PM EDT Received call from radiology. Clarified order with Dr Coker, proceed with CT of ABD/Pelvis. in this encounter Plan of Treatment Upcoming Encounters Date Type Specialty Care Team Description 09/18/2017 Office Visit Gastroenterology Ruslan Kelly MD [address] [facility] [address] [phone] 11/28/2017 Office Visit Dermatology Laurel Arnett MD [address] [place] [address] [phone] 02/13/2018 Office Visit Family Medicine Coco Darnell, [address] [place] [address] [id number] Scheduled Tests Name Priority Associated Diagnoses Order S chedule CT ABD/PELVIS W IV CONTRAST - WO ORAL CONTRAST Routine Abdominal bloating Expected: 09/11/2017, Expires: 09/11/2018 Health Maintenance Due Date Last Done Comments CKD URINE PROTEIN/CREATININE RATION OR URINE MICROALBUMIN YEARLY USE SMARTSET 02746 01/18/2018 01/18/2017 CKD GFR USE SMARTSET 62373 03/02/201808/31, 07/29/2017, 11/14/2016, Additional history exists CKD HGB USE SMARTSET 20023 07/29/201807/29, 03/31/2016, 08/05/2015, Additional history exists CKD LDL USE SMARTSET 72318 ( STAGE 3) [place] [address] (STAGE 4) 07/29/2018 07/29/2017, 11/14/2016, 08/05/2015, Additional history exists CKD PHOS USE SMARTSET 03025 07/29/201807/18, 03/31/2016, 08/06/2014 DXA-SCREENING EVERY 7 YRS-US [...]
--- OUTSIDE RECORDS SUMMARY | 2022-12-12 21:52 | External Medical Summary ---
Author Name Unknown Address [address] [place] [address] Phone Organization K01:[place] [id number] Laboratory Report Ordering Provider Test Date Status GABRIELA LOU 08/31/2017 14:13:00 Final Observation Date Value Abnormality Reference Status Tissue transglutaminase IgA Ab [Units/volume] in Serum by Immunoassay 09/01/2017 12:46 1.4 <20 Final Performing Location [address] [address]
--- OUTSIDE RECORDS SUMMARY | 2022-12-12 21:53 | External Medical Summary | Summary of Care ---
Author Name Unknown Organization [place] [address] Phone Care Team Providers Care Clinical Document Improvement Educator Name Role Phone Coco Darnell DO Primary Care Provider [phone] Encounter Details Date Type Department Care Team Description 01/20/2017 Result Scan Unspecified Department <No scans attached> Allergies Active Allergy Reactions Severity Noted Date Comments Codeine 09/26/2011 Makes pt "goofy and dizzy" Prednisone Other (Please comment) 12/22/2016 Severe depression [...] CPEP 04/30/2016 Active dicyclomine (BENTYL) 10 MG CapsuleIndications:I rritable bowel syndrome with both constipation and diarrhea Take 1 Cap by mouth 4 times a day as needed for Cramping. For abdominal pain 120 Cap 5 10/13/2016 Active Cholecalciferol (VITAMIN D-3) 1000 units Capsule Take by mouth. Active [place] 3 1200 MG CAPS Acti ve Biotin 1 MG Capsule Activ e valsartan (DIOVAN) 80 MG TabletIndications:Be nign hypertension with CKD (chronic kidney disease) stage III,HTN, goal below 140/90,LVH (left ventricular hypertrophy) due to hypertensive disease, without heart failure Take 1 Tab by mouth daily. 90 Tab 1 01/18/2017 Active as of this encounter Active Problems Problem Noted Date HTN, goal below 140/90 01/18/2017 Benign hypertension with CKD (chronic ki dney disease) stage III 01/18/2017 LVH (left ventricular hypert rophy) due to hypertensive disease, without heart failure 01/18/2017 Inflammation of sacroiliac joint (HCC) 0 03/31/2016 Kidney disease, chronic, stage III (GFR 30-59 ml/min) 05/13/2013 Overview: Per CKD protocol #1 Hx of nonmelanoma skin cancer 12/01/2011 Overview: [...] Resolved Date Sciatica without lumbago 03/31/2016 017 ADVANCE DIRECTIVE INFORMATION 11/25/2009 Overview: Yes, Patient [...] Comments:quit 1987 Alcohol Use Drinks/Week oz/Week Comments Yes very rarely Sex Assigned at Date Recorded Not on file as of this encounter Plan of Treatment Upcoming Encounters Date Type Specialty Care Team Description 03/28/2017 Nurse Only Ancillary Gene II, Nurse Annual Wellness, RN [address] [place] [address] Health Maintenance Due Date Last Done Comments CKD PHOS USE SMARTSET 37743 09/28/2016 03/31/2016, 0 08/06/2014 *DEPRESSION SCREENING, UNIQUE [place] FOR PTS 18 AND OVER 01/15/2017 CKD HGB USE SMARTSET 60479 03/31/201703/31, 08/05/2015, 08/06/2014, Additional history exists CKD GFR USE SMARTSET 58329 05/17/201711/14, 03/31/2016, 08/05/2015, Additional history exists CKD [place] USE SMARTSET 85765 ( STAGE 3) [place] [address] (STAGE 4) 11/14/2017 11/14/2016, 08/05/2015, 08/06/2014, Additional history exists CKD URINE PROTEIN/CREATININE RATION OR URINE MICROALBUMIN YEARLY USE SMARTSET 87655 01/18/2018 01/18/2017 DXA-SCREENING EVERY 7 YRS-US E SMARTSET# 3348 TO ORDER 03/15/2019 03/15/2012 DIABETES SCREEN EVERY 3 YRS- AGE 45 AND ABOVE 11/15/2019 11/14/2016, 03/31/2016, 08/05/2015, Additional history exists TETANUS EVERY 10 YEARS-TDAP (BOOSTRIX OR ADACEL) SUGGESTED IF NOT RECEIVED IN THE PAST. 12/19/2021 12/20/2011 COLONOSCOPY-EVERY 5 YRS AGES 18-100 12/29/2021 12/29/2016, 12/29/2016 PNEUMOCOCCAL ADULT 65 YRS AND OVER Completed 10/13/2016, 07/08/2015, 08/16/2002 Influenza Vaccine (FLU shot) Completed 10/2016, 01/22/2016, 11/21/2014, Additional history exists as of this encounter Implants Not on fileas of this encounter Results * RADIOLOGY SCANNED RESULT (01/20/2017) in this encounter Insurance Payer Benefit Plan / Group Subscriber ID Type Phone Address MEDICARE MEDICARE A AND B [id number] Medicare [place] [employer] [id number] as of this encounter
--- OUTSIDE RECORDS SUMMARY | 2022-12-12 21:53 | External Medical Summary | Summary of Care ---
Author Name Unknown Organization [place] [address] Phone Care Team Providers Care Deck Lid Fitter Name Role Phone Coco Darnell Primary Care Provider Reason for Visit * Reason Comments RECHECK Seen at on 03/23/19 18. Still coughing up all night and productive with green phelgm. Cough syrup helps supress cough to sleep but not helping get rid of anything. Does not feel it is in chest. Post nasal drip. OTC Mucinex-piles of it. Encounter Details Date Type Department Care Team Description 03/27/2017 Office Visit Family Practice [facility] [address] [place] [address] Liliam Jarquin PA-C [address] [facility] [place] [address] [phone] Acute sinusitis, recurrence not specified, unspecified location*;History of vulvovaginitis;Kidney disease, chronic, stage III (GFR 30-59 ml/min);Risk and functional assessment Allergies Active Allergy Reactions Severity Noted Date [...] 1000 units Capsule Take by mouth. Active Blue River 3 1200 MG CAPS Acti ve Biotin 1 MG Capsule Activ e valsartan (DIOVAN) 80 MG TabletIndications:Be nign hypertension with CKD (chronic kidney disease) stage III,HTN, goal below 140/90,LVH (left ventricular hypertrophy) due to hypertensive disease, without heart failure Take 1 Tab by mouth daily. 90 Tab 1 01/18/2017 Active guaiFENesin-codeine (ROBITUSSIN AC) 100-10 MG/5ML syrupIndications:Acu te bronchitis, antibiotics not indicated Take 5 mL by mouth every 4 hours as needed for Cough. 90 mL 0 03/23/2017 Active Ascorbic Acid (VITAMIN C) 1000 MG Tablet Take 1,000 mg by mouth daily. Active amoxicillin-clavulan ate (AUGMENTIN) 875-125 MG per TabletIndications:Ac anna sinusitis, recurrence not specified, unspecified location Take 1 Tab by mouth 2 times a day for 7 days. 14 Tab 0 03/27/2017 04/03/2017 Active fluconazole (DIFLUCAN) 150 MG TabletIndications:Hi story of vulvovaginitis Take 1 Tab by mouth once for 1 dose. Repeat in 3 days if needed 1 Tab 1 03/27/2017 03/27/2017 Active as of this encounter Active Problems [...] Vital Sign Reading Time Taken Blood Pressure 126/72 03/27/2017 12:56 PM EST Pulse 67 03/27/2017 12:56 PM EST Temperature 36.6 °C (97.8 °F) 03/27/2017 1 2:56 PM EST Respiratory Rate 16 03/27/2017 12:5 6 PM EST Oxygen Saturation 99% 03/27/2017 12: 56 PM EST Inhaled Oxygen Concentration - - Weight 72.3 kg (159 lb 6.4 oz) 03/27/19 18 12:56 PM EST Height - - Body Mass Index 27.36 03/27/2017 12:56 PM EST in this encounter Instructions * Patient Instructions - Weston Louise LPN - 03/27/2017 12:55 PM EST Patient Instructions - Fall Prevention Remember to take your current medications as prescribed. In order to prevent falls, you are encouraged to: · Exercise · Utilize assistive/adaptive devices · Avoid multifocal lenses when walking · Avoid hazards in home · Maintain a regular toileting schedule Any questions please contact our office. Preventing Falls in the Home As you get older, falls are more likely. That’s because your reaction time slows. Your muscles and joints may also get stiffer, making them less flexible. Illness, medications, and vision changes can also affect your balance. A fall could leave you unable to live on your own. To make your home safer, follow these tips: Floors · Put nonskid pads under area rugs · Remove throw rugs · Replace worn floor coverings · Tack carpets firmly to each step on carpeted stairs. Put nonskid strips on the edges of uncarpeted stairs · Keep floors and stairs free of clutter and cords · Arrange furniture so there are clear pathways · Clean up any spills right away Bathrooms · Install grab bars in the tub or shower · Apply nonskid strips or put a nonskid rubber mat in the tub or shower · Sit on a bath chair to bathe · Use bathmats with nonskid backing Lighting · Keep a flashlight in each room · Put a nightlight along the pathway between the bedroom and the bathroom [employer] Patient Education Copyright© 2008 - 2010 [employer] except where otherwise noted Preventing Falls: Exercises to Improve Balance, Flexibility, Strength, and Staying Power Certain types of exercises may help make you less likely to fall. Try the ones below. Or do other exercises that your healthcare provider suggests. Depending on your health, you may need to start slowly. Don’t let that stop you. Even small amounts of exercise can help you. Be sure to talk to yourhealthcare provider before starting any exercise program. Improve Balance Many types of exercise can help improve balance. Rafa chi and yoga are good examples. Here’s another one to try. You can do it anytime and almost anywhere. · Stand next to a counter or solid support. · Push yourself up onto your tiptoes. · Hold for 5 seconds. If you start to lose your balance, hold on to the counter. · Rest and repeat 5 times. Work up to holding for 20 to 30 seconds, if you can. Increase Flexibility Being more flexible makes it easier for you to move around safely. Try exercises like the seated hamstring stretch. · Sit in a chair and put one foot on a stool. · Straighten your leg and reach with both hands down either side of your leg. Reach as far down your leg as you can. · Hold for about 20 seconds. · Go back to the starting position. Then repeat 5 times. Switch legs. Build Strength “Resistance” exercises help build strength. You can do them without equipment. Or you can use weights, elastic bands, or special machines. One such exercise is called the biceps curl. You can hold a 1 pound weight or even a can of soup. Do this exercise at least 3 times a week. Strive for everyday. · Sit up straight in a chair. · Keep your elbow close to your body and your wrist straight. · Bend your arm, moving your hand up to your shoulder. Then slowly lower your arm. · Repeat 5 times. Switch to the other arm. Build Your Staying Power “Aerobic” exercises make your heart and lungs stronger so you can keep moving longer. Walking and swimming are two of the best types of exercises you can do. Using a stationary bike is great, too. Find an aerobic exercise that you enjoy. Start slowly and build up. Even 5 minutes is helpful. Aimfor a goal of 30 minutes, at least 3 times a week. You don’t have to do 30 minutes in one session. Break it up and walk a little throughout the day. More Helpful Tips · Start easy. Slowly work up to doing more. · Talk with your healthcare provider about the best exercises for you. · Call senior centers or health clubs about exercise programs. · If needed, have a family member watch you walk every so often to check your stability. · Exercise with a friend. Choose an activity you both enjoy. · Try exercises that you can do anytime, anywhere. Here are two examples. Have someone with you when you first try these: · Practice walking by placing one foot right in front of the other. · Stand up and sit down 10 times. Repeat this throughout the day. [employer] Patient Education Copyright© 2008 - 2010 [employer] except where otherwise noted. Preventing Falls: Moving Safely Using a Cane or Walker Keep the cane away from your feet so you don’t trip. A walking aid, such as a cane or walker, can help you stay more independent and avoid falls. Remember to keep your walking aid within easy reach when you’re in a chair or in bed. And learn how to use it safely so you don’t injure yourself. Using a Cane If you have a stronger side, hold the cane on that side. 17. Get your balance. 18. Move the cane and your weaker leg forward. 19. Support your weight on both the cane and your weaker side. 20. Step with your stronger leg. 21. Start again from step 1. If you’re using a folding walker, be sure you know how to lock it open. Check that it’s locked open before each use. Using a Walker 7. Roll the walker (or lift it, if you’re using one without wheels) forward about 12 inches. 8. Step forward with your weaker leg first. 9. Use the walker to help keep your balance. 10. Bring your other foot forward to the center of the walker. 11. Start again from step 1. Helpful Tips · Check with your healthcare provider about the right walking aid to use. Ask about a walker with a seat attached. · Check the tips of your cane or walker to make sure they have nonskid covers. · Move slowly from room to room. Don’t weiss. · Sit down to get dressed. · Use a orlin pack or backpack to keep your hands free. · Get help for jobs that mean climbing, even on a stepstool. What's in My Handbag Patient Education Copyright© 2008 - 2010 [employer] except where otherwise noted. Urinary Incontinence Plan of Care Documentation: Current medications reconciled. Patient encouraged to: · Practice kegal exercises · Provide education materials · Use the restroom every 2 hours throughout the day · Limit caffeine, alcohol, spicy foods and acidic foods · Keep a bladder diary · Limit fluid intake 3-4 hours before bed · Lose weight · Prevent constipation · Take fluid pills at a time when you can get to the bathroom quickly · Control sugar better if diabetic · Limit fluid intake to 60 oz. per day · Wear support stockings (TEDs)if you have edema Weston Louise LPN 03/27/2017 Kegel Exercises Kegel exercises don’t require special clothing or equipment. They’re easy to learn and simple to do. And if you do them right, no one can tell you’re doing them, so they can be done almost anywhere. Your doctor, nurse, or physical therapist can answer any questions you have and help you get started. A Weak Pelvic Floor The pelvic floor muscles may weaken due to aging, and vaginal childbirth, injury, surgery, chronic cough, or lack of exercise. If the pelvic floor is weak, your bladder and other pelvic organs may sag out of place. The urethra may also open too easily and allow urine to leak out. Kegel exercises can help you strengthen your pelvic floor muscles so they can better support the pelvic organs and control urine flow. How Kegel Exercises Are Done Try each of the Kegel exercises described below. When you’re doing them, try not to move your leg, buttock, or stomach muscles. · While you’re urinating, try to stop the flow of urine. Start and stop it as often as you can. · Contract as if you were stopping your urine stream, but do it when you’re not urinating. · Tighten your rectum as if trying not to pass gas. Contract your anus, but don’t move your buttocks. Helpful Hints · Do your Kegels as often as you can. The more you do them, the faster you’ll feel the results. · Pick an activity you do often as a reminder. For instance, do your Kegels every time you sit down. · Tighten your pelvic floor before you sneeze, get up from a chair, cough, laugh, or lift. This protects your pelvic floor from injury and can help prevent urine leakage. Try to hold each Kegel for a slow count to five. You probably won’t be able to hold them for thatlong at first, but keep practicing. It will get easier as your pelvic floor gets stronger. Eventually, special weights that you place in your vagina may be recommended to help make your Kegels even more effective. [employer] Patient Education Copyright© 2008 - 2010 [employer] except where otherwise noted. Here are some helpful tips for your urinary incontinence: · Practice kegal exercises · Use the restroom every 2 hours throughout the day · Limit caffeine, alcohol, spicy foods, and acidic foods · Keep a bladder diary · Limit fluid intake 3-4 hours before bed · Lose weight · Prevent constipation · Take fluid pills at a time when can get to the bathroom quickly · Control sugar better if diabetic · Limit fluid intake to 60 oz. per day Any questions, please feel free to contact our office. in this encounter Progress Notes * Liliam Jarquin PA-C - 03/27/2017 12:44 PM EST Formatting of this note may be different from the original. SUBJECTIVE: CC: Laurel Rios is a 77 year old female who presents with continued cough. HPI: Patient was seen at [facility] on 03/23 for cough- diagnosed bronchitis, given cheratussin AC. Symptoms have been going for 2-3 weeks. Says that when taking this does help cough, but cough then returns. Also tried mucinex with no relief. Still with nocturnal coughing, productive green mucus cough, post nasal drip, chest congestion and continued sinus drainage. ROS: No wheezing, chest tightness, SOB, dizziness, nausea, vomiting, fever, chills. 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 Hu • TOTAL HYSTERECTOMY 1989 still has one ovary Social History Substance Use Topics • Smoking status: Former Smoker Quit date: 03/19/1988 • Smokeless tobacco: Never Used Comment: quit 1987 • Alcohol use No Family History Problem Relation Age of Onset [...] Sister hystoplamosis of the optic nerve, OU Outpatient Prescriptions Marked as Taking for the 03/27/17 encounter (Office Visit) with Liliam Jarquin PA-C Medication Sig • Ascorbic Acid (VITAMIN C) 1000 MG Tablet Take 1,000 mg by mouth daily. • guaiFENesin-codeine (ROBITUSSIN AC) 100-10 MG/5ML syrup Take 5 mL by mouth every 4 hours as needed for Cough. • valsartan (DIOVAN) 80 MG Tablet Take 1 Tab by mouth daily. • Cholecalciferol (VITAMIN D-3) 1000 units Capsule Take by mouth. • Blue River 3 1200 MG CAPS • Biotin 1 MG Capsule • dicyclomine (BENTYL) 10 MG Capsule Take 1 Cap by mouth 4 times a day as needed for Cramping. For abdominal pain • DULoxetine (CYMBALTA) 20 MG CPEP • gabapentin (NEURONTIN) 100 MG Capsule Take 3 times a day • tiZANidine (ZANAFLEX) 4 MG Tablet Take 0.5 Tabs by mouth. • polyethylene glycol 3350 (MIRALAX) 255 gram powder Take 17 g by mouth as needed for Constipation. Dissolve one heaping tablespoon in 8 ounces of water or juice. • cyclosporine (RESTASIS) 0.05 % ophthalmic emulsion Instill 1 Drop into both eyes every 12 hours. affected eye(s) • PARoxetine (PAXIL) 30 MG Tablet Take 1 Tab by mouth daily. • diazepam (VALIUM) 5 MG Tablet TAKE 1/2 TO ONE TABLET UP TO TWICE A DAY NEEDED FOR MUSCLE SPASM • NAPROXEN SODIUM 220 MG PO CAPS 1 daily • PROGESTERONE 1000 MG/60GM EX CREA apply once daily • ASPIRIN 81 MG PO TABS 2 daily • RED YEAST RICE 600 MG PO CAPS 1 daily • STOOL SOFTENER 100 MG PO TABS 1 tablet daily as needed for constipation Review of patient's allergies indicates: Allergen Reactions • Prednisone Other (Please comment) Severe depression OBJECTIVE: BP 126/72 | Pulse 67 | Temp (Src) 97.8 (Tympanic) | Resp 16 | Wt 159 lbs 6.4 oz (72.303kg) | BMI 27.36 kg/m² | BSA 1.81 m² | SaO2 99[Room Air[% General appearance: awake, alert, no apparent distress, cooperative Head: Normocephalic, No masses, lesions, tenderness or abnormalities Ears: External ears normal, Canals clear, TM's normal light reflex, no erythema Nose: + tubinate engorgement, erythema and discharge Mouth: no exudate, no erythema, lips, buccal mucosa, and tongue normal and mucous membranes are moist Neck: supple, no adenopathy, thyroid normal size, non-tender, without nodularity Heart: regular rate & rhythm, no murmurs and no gallops Lungs: lungs clear to auscultation, no rales, wheezing, or rhonchi and breathing non-labored ASSESSMENT/PLAN: J01.90 Acute sinusitis, recurrence not specified, unspecified location (primary encounter diagnosis) Plan: Amoxicillin-pot clavulanate 875-125 mg po tabs Sig:Take 1 tab by mouth 2 times a day for 7 days. Codeine cough syrup refill if needed Z87.42 History of vulvovaginitis Plan: Fluconazole 150 mg po tabs Sig:Take 1 tab by mouth once for 1 dose. repeat in 3 days if needed N18.3 Kidney disease, chronic, stage iii (gfr 30-59 ml/min) No dosage adjustment needed for meds Z13.9 Risk and functional assessment Plan: Pat scrn for fall risk Pres or abs of urin incont as Patients goals for plan of care were discussed. Follow up: Instructed to follow up or notify Primary Care Provider if no better in: 3-4 day(s), andimmediately if signs and symptoms worsen. Liliam Jarquin PA-C [facility] [address] [facility] [place], [address] in this encounter Nursing Notes * Weston Louise LPN - 03/27/2017 12:55 PM EST Formatting of this note may be different from the original. The patient has been properly identified by confirmation of name and date of . Chief Complaint Patient presents with • RECHECK Seen at on 03/23/2017. Still coughing up all night and productive with green phelgm. Cough syrup helps supress cough to sleep but not helping get rid of anything. Does not feel it is in chest. Post nasal drip. OTC Mucinex-piles of it. in this encounter Plan of Treatment Upcoming Encounters Date Type Specialty Care Team Description 03/28/2017 Nurse Only Ancillary [facility], Nurse Annual Wellness, RN [address] [place] [address] Health Maintenance Due Date Last Done Comments CKD PHOS USE SMARTSET 88632 09/28/2016 03/31/2016, 0 08/06/2014 *DEPRESSION SCREENING, UNIQUE [place] FOR PTS 18 AND OVER 01/15/2017 CKD HGB USE SMARTSET 78084 03/31/201703/31, 08/05/2015, 08/06/2014, Additional history exists CKD GFR USE SMARTSET 37446 05/17/201711/14, 03/31/2016, 08/05/2015, Additional history exists CKD LDL [place] SMARTSET 21577 ( STAGE 3) [place] [address] (STAGE 4) 11/14/2017 11/14/2016, 08/05/2015, 08/06/2014, Additional history exists CKD URINE PROTEIN/CREATININE RATION OR URINE MICROALBUMIN YEARLY USE SMARTSET [id number] 01/18/2018 01/18/2017 DXA-SCREENING EVERY 7 YRS-US E [...] fileas of this encounter Visit Diagnoses Diagnosis Acute sinusitis, recurrence not specified, unspecified location - Primary History of vulvovaginitis Personal history of other genital system and obstetric disorders Kidney disease, chronic, sta ge III (GFR 30-59 ml/min) Chronic kidney disease, Stage III (moderate) Risk and functional assessme nt Screening for unspecified condition in this encounter Insurance Payer Benefit Plan / Group Subscriber ID Type Phone Address MEDICARE MEDICARE A AND B [id number] Medicare [place] [employer] [id number] as of this encounter"
--- OUTSIDE RECORDS SUMMARY | 2022-12-12 21:53 | External Medical Summary | Summary of Care ---
Author Name Unknown Organization [place] [address] Phone Care Team Providers Care Nitrocellulose Maker Name Role Phone Coco Darnell Primary Care Provider [phone] Reason for Visit * Reason Comments COUGH cough productive for thick white phlegm since sat, chest congestion, low grade fever, had carpal tunnel surg 04/15 Encounter Details Date Type Department Care Team Description 04/24/2017 Office Visit [facility] [address] [facility] [place] [address] Liliam Jarquin PA-C [address] [facility] [place] [address] [phone] Flu-like symptoms*;Cough;Benign hypertension with CKD (chronic kidney disease) stage III;Kidney disease, chronic, stage III (GFR 30-59 ml/min) Allergies Active Allergy Reactions Severity Noted Date [...] units Capsule Take by mouth. Active [place] 3 1200 MG CAPS Active Biotin 1 MG Capsule Active Ascorbic Acid (VITAMIN C) 1000 MG Tablet Take 1,000 mg by mouth daily. Active valsartan (DIOVAN) 80 MG TabletIndications :Benign hypertension with CKD (chronic kidney disease) stage III,HTN, goal below 140/90,LVH (left ventricular hypertrophy) due to hypertensive disease, without heart failure Take 1 Tab by mouth daily. 90 Tab 1 04/20/2017 Active oseltamivir (TAMIFLU) 75 MG CapsuleIndication s:Flu-like symptoms Take 1 Cap by mouth 2 times a day for 5 days. For 5 days. 10 Cap 0 04/24/2017 8 Active guaiFENesin-codei ne (ROBITUSSIN AC) 100-10 MG/5ML syrupIndications: Acute bronchitis, antibiotics not indicated Take 5 mL by mouth every 4 hours as needed for Cough. 90 mL 0 03/23/2017 8 Discontinued HYDROcodone-aceta minophen 5-325 mg per tab 5-325 MG per tablet 04/11/2017 8 Discontinued as of this encounter Active Problems Problem Noted Date HTN, goal below 140/90 01/18/2017 Benign hypertension with CKD (chronic ki dney disease) stage III 01/18/2017 LVH (left ventricular hypert rophy) due to hypertensive disease, without heart failure 01/18/2017 Kidney disease, chronic, stage III (GFR 30-59 [...] Inflammation of sacroiliac joint (HCC) 7 04/24/2017 ADVANCE DIRECTIVE INFORMATION 11/25/2009 Overview: Yes, Patient [...] Vital Sign Reading Time Taken Blood Pressure 124/72 04/24/2017 11:27 AM EST Pulse 78 04/24/2017 11:27 AM EST Temperature 37.3 °C (99.2 °F) 04/24/2017 1 1:27 AM EST Respiratory Rate 14 04/24/2017 11:2 7 AM EST Oxygen Saturation 94% 04/24/2017 11: 27 AM EST Inhaled Oxygen Concentration - - Weight 71.7 kg (158 lb) 04/24/2017 11:2 7 AM EST Height - - Body Mass Index 27.12 04/24/2017 11:27 AM EST in this encounter Progress Notes * Liliam Jarquin PA-C - 04/24/2017 11:28 AM EST Formatting of this note may be different from the original. SUBJECTIVE: CC: Laurel Rios is a 77 year old female who presents with cough x 2 days. HPI: Patient was last seen 03/27/17 for URI symptoms x 3 weeks. She was prescribed cheratussin AC andaugmentin. States that symptoms did resolve. [place] better for about 2 weeks. She has carpal tunnel surgery on 04/15/17- doing well. On Monday started with productive cough, thicker white mucus, chestcongestion, "low" grade fever, pnd, sore throat. Current temp: 99.2 F, with aleve recently. Has felt body aches, fatigue also last couple days. Says that seemed hit her fast Monday mid morning. ROS: No wheezing, nausea, vomiting, diarrhea, abdomen pain, dizziness, syncope, headache. HISTORY: Past Medical History: Diagnosis Date • [...] performed by Ruslan Kelly MD at ENDOSCOPY [facility] • GENITAL SURGERY PROCEDURE NEC 1982 [...] Outpatient Prescriptions Marked as Taking for the 04/24/17 encounter (Office Visit) with Liliam Jarquin PA-C Medication Sig • valsartan (DIOVAN) 80 MG Tablet Take 1 Tab by mouth daily. • Ascorbic Acid (VITAMIN C) 1000 MG Tablet Take 1,000 mg by mouth daily. • Cholecalciferol (VITAMIN D-3) 1000 units Capsule Take by mouth. • [place] Edward 3 1200 MG CAPS • Biotin 1 [...] Other (Please comment) Severe depression OBJECTIVE: BP 124/72 | Pulse 78 | Temp (Src) 99.2 (Tympanic) | Resp 14 | Wt 158 lbs (71.668kg) | BMI 27.12 kg/m² | BSA 1.8 m² | SaO2 94% General appearance: awake, alert, no apparent distress, cooperative Head: Normocephalic, No masses, lesions, tenderness or abnormalities Ears: External ears normal, Canals clear, TM's normal light reflex, no erythema Nose: no mucosal erythema, no mucosal edema, no purulent discharge, no sinus tenderness Mouth: no exudate, no erythema, lips, buccal mucosa, and tongue normal and mucous membranes are moist Neck: supple, no adenopathy, thyroid normal size, non-tender, without nodularity Heart: regular rate & rhythm Lungs: lungs clear to auscultation, no rales, wheezing, or rhonchi and breathing non-labored ASSESSMENT/PLAN: R68.89 Flu-like symptoms (primary encounter diagnosis) Plan: Oseltamivir phosphate 75 mg po caps Sig:Take 1 cap by mouth 2 times a day for 5 days. for 5 days. R05 Cough Plan: Xr chest 2 views - no pneumonia on wet read I12.9, N18.3 Benign hypertension with ckd (chronic kidney disease) stage iii No dosage adjustment N18.3 Kidney disease, chronic, stage iii (gfr 30-59 ml/min) No dosage adjustment Patients goals for plan of care were discussed. Follow up: Instructed to follow up or notify Primary Care Provider if no better in: 2-3 day(s), andimmediately if signs and symptoms worsen. BETTY Ramirezer Angelika Garcia [address] [facility] [place], [address] in this encounter Nursing Notes * Dena Partida, RN - 04/24/2017 11:31 AM EST Formatting of this note may be different from the original. The patient has been properly identified by confirmation of name and date of . Chief Complaint Patient presents with • COUGH cough productive for thick white phlegm since sat, chest congestion, low grade fever, had carpal tunnel surg 04/15 in this encounter Plan of Treatment Pending Results Name Priority Associated Diagnoses Date/Ti me XR CHEST 2 VIEWS STAT Cough 04/24/2017 11:56 AM EST Health Maintenance Due Date Last Done Comments CKD PHOS USE SMARTSET 25568 09/28/2016 03/31/2016, 0 08/06/2014 *DEPRESSION SCREENING, UNIQUE Macias FOR PTS 18 AND OVER 01/15/2017 CKD HGB USE SMARTSET 79296 03/31/201703/31, 08/05/2015, 08/06/2014, Additional history exists CKD GFR USE SMARTSET 67830 05/17/201711/14, 03/31/2016, 08/05/2015, Additional history exists CKD LDL USE SMARTSET 80997 ( STAGE 3) [place] [address] (STAGE 4) 11/14/2017 11/14/2016, 08/05/2015, 08/06/2014, Additional history exists CKD URINE PROTEIN/CREATININE RATION OR URINE MICROALBUMIN YEARLY USE SMARTSET 31053 01/18/2018 01/18/2017 DXA-SCREENING EVERY 7 YRS-US E [...] fileas of this encounter Visit Diagnoses Diagnosis Flu-like symptoms - Primary Influenza with other respiratory manifestations Cough Benign hypertension with CKD (chronic kidney disease) 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
--- OUTSIDE RECORDS SUMMARY | 2022-12-12 21:53 | External Medical Summary | Summary of Care ---
Author Name Unknown Organization [place] [address] Phone Care Team Providers Care Ceramic Coater Name Role Phone Coco Darnell DO Primary Care Provider [phone] Reason for Visit * Reason Comments COUGH Encounter Details Date Type Department Care Team Description 05/18/2017 Office Visit [place] [address] [place] [address] Coco Darnell DO [address] [place] [address] [phone] Kidney disease, chronic, stage III (GFR 30-59 ml/min)*;Post-nasal drip;Cough;HTN, goal below 140/90 Allergies Active Allergy Reactions Severity Noted Date [...] 1000 units Capsule Take by mouth. Active [place] 3 1200 MG CAPS Active Biotin 1 [...] Vital Sign Reading Time Taken Blood Pressure 128/60 05/18/2017 2:21 PM EST Pulse 66 05/18/2017 2:21 PM EST Temperature 36.5 °C (97.7 °F) 05/18/2017 2 :21 PM EST Respiratory Rate 14 05/18/2017 2:21 PM EST Oxygen Saturation - - Inhaled Oxygen Concentration - - Weight 73 kg (161 lb) 05/18/2017 2:21 PM EST Height - - Body Mass Index 27.64 05/18/2017 2:21 PM EST in this encounter Progress Notes * Coco Darnell, DO - 05/18/2017 2:27 PM EST Formatting of this note may be different from the original. SUBJECTIVE: Chief Complaint Patient presents with • COUGH HPI: Laurel Rios is a 77 year old female who presents today with complaints of cough. Pt was diagnosed with flu (not confirmed by testing) on 04/24. She was given tamiflu. It is worse when she islying down and at night. She has had this for about 2 weeks. She had a normal CXR on 04/24. She will cough up some clear sputum. She does feel that she is getting some mucous dripping down her throat at night. No recent fevers. She is blowing her nose quite a bit. No blood in her mucous. She has tried mucinex and OTC cough medications without any relief. She has a bit of cough syrup with codeine athome that has helped some. Otherwise, she has felt somewhat rundown. She feels that her BP has been controlled. She has known CKD. She has had issues with her IBS which have been ongoing but no different than previous. PHM: Patient Active Problem List Diagnosis Code • Hypothyroidism E03.9 • Depression F32.9 • GENERALIZED ANXIETY DIS F41.1 • Irritable bowel syndrome K58.9 • Dyslipidemia, goal LDL below 130 E78.5 BONE & CARTILAGE DIS NOS - Osteopenia M89.9, M94.9 • Posttraumatic stress disorder F43.10 • Vitamin D deficiency E55.9 • Hx of nonmelanoma skin cancer Z85.828 • Kidney disease, chronic, stage III (GFR 30-59 ml/min) N18.3 • HTN, goal below 140/90 I10 • Benign hypertension with CKD (chronic kidney disease) stage III I12.9, N18.3 • LVH (left ventricular hypertrophy) due to hypertensive disease, without heart failure I11.9 Current Outpatient Prescriptions Medication Sig Dispense Refill [...] 220 MG PO CAPS 1 daily • [place] 3 1200 MG CAPS • PARoxetine (PAXIL) [...] performed by Ruslan Kelly MD at ENDOSCOPY [facility] • GENITAL SURGERY PROCEDURE NEC 1982 [...] fatigue and No fevers, sweats, or chills Ear ROS: No ear pain, No drainage, No tinnitus or vertigo and No recent change in hearing Nose ROS: No history of frequent colds or sinusitis, + nasal stuffiness Mouth/Throat ROS: No bleeding gums, No thrush or No sore throat Pulmonary ROS: + cough and sputum. No wheezing, No shortness of breath Cardiovascular ROS: No chest pain, No shortness of breath, No dyspnea on exertion, No orthopnea Gastrointestinal ROS: No abdominal pain, No change in bowel habits, No nausea, vomiting, diarrhea, or constipation Musculoskeletal/Extremities ROS: No pain, redness or swelling on the joints Skin/Integumentary ROS: As per HPI OBJECTIVE: BP 128/60 | Pulse 66 | Temp (Src) 97.7 (Tympanic) | Resp 14 | Wt 161 lbs (73.029kg) | BMI 27.64 kg/m² | BSA 1.82 m² PHYSICAL EXAM: General: alert, no distress, well nourished and well developed Head: Normocephalic, No masses, lesions, tenderness or abnormalities Ears: External ears normal, Canals clear, TMs with slight bulge Nose: no mucosal erythema, no mucosal edema, no septal hematoma, clear rhinorrhea Oropharynx: no exudate, no erythema, lips, buccal mucosa, and tongue normal, mucous membranes are moist and post nasal drip Neck: supple, thyroid normal size, non-tender, without nodularity, small benign anterior cervical nodes bilaterally Heart: regular rate & rhythm, no murmurs [...] normal, no rashes or significant lesions ASSESSMENT/PLAN: N18.3 Kidney disease, chronic, stage iii (gfr 30-59 ml/min) (primary encounter diagnosis) Plan: Pt due for lab studies. She is asked to complete. Lab: 1. Phosphorus Future expected: 05/18/2017 2. Cbc/diff Future expected: 05/18/2017 3. Basic metab panel, bmp Future expected: 05/18/2017 4. Pth, intact Future expected: 05/18/2017 R09.82 Post-nasal drip R05 Cough Plan: Likely that cough is secondary to post nasal drip. She will start flonase daily. Call office if symptoms worsen or fail to improve. Medications: 1. Fluticasone propionate 50 mcg/act na susp Sig:Administer 2 sprays into each nostril daily. I10 Htn, goal below 140/90 Plan: Pt's BP controlled. She will complete fasting lipid panel. Lab: 1. Lipid panel Future expected: 05/18/2017 Follow up: Return in about 3 months (around 08/18/2017). Coco Darnell DO in this encounter Nursing Notes * Tracie Vazquez LPN - 05/18/2017 2:22 PM EST Cough Sick since malia in this encounter Plan of Treatment Upcoming Encounters Date Type Specialty Care Team Description 08/25/2017 Office Visit [facility] Coco Darnell DO [address] [place] [id number] 11/28/2017 Office Visit Dermatology Laurel Arnett MD [address] [facility], [place] [address] [phone] Scheduled Tests Name Priority Associated Diagnoses Order S chedule PHOSPHORUS Routine Kidney disease, chronic, stage III (GFR 30-59 ml/min) Expected: 05/18/2017, Expires: 06/18/2018 CBC/DIFF Routine Kidney disease, chronic, stage III (GFR 30-59 ml/min) Expected: 05/18/2017 (Approximate), Expires: 05/18/2018 BASIC METAB PANEL, BMP Routine Kidney disease, chronic, stage III (GFR 30-59 ml/min) Expected: 05/18/2017 (Approximate), Expires: 05/18/2018 PTH, INTACT Routine Kidney disease, chronic, stage III (GFR 30-59 ml/min) Expected: 05/18/2017 (Approximate), Expires: 05/18/2018 LIPID PANEL Routine HTN, goal below 140/90 Expected: 05/18/2017 (Approximate), Expires: 05/18/2018 Health Maintenance Due Date Last Done Comments *DEPRESSION SCREENING, ANNUA L FOR PTS 18 AND OVER 01/15/2017 CKD HGB USE SMARTSET 36576 03/31/201703/31, 08/05/2015, 08/06/2014, Additional history exists CKD PHOS USE SMARTSET 60117 03/31/2017 03/31/2016, 0 08/06/2014 CKD GFR USE SMARTSET 51577 05/17/201711/14, 03/31/2016, 08/05/2015, Additional history exists CKD LDL USE SMARTSET 61846 ( STAGE 3) [place] [address] (STAGE 4) 11/14/2017 11/14/2016, 08/05/2015, 08/06/2014, Additional history exists CKD URINE PROTEIN/CREATININE RATION OR URINE MICROALBUMIN YEARLY USE SMARTSET 24757 01/18/2018 01/18/2017 DXA-SCREENING EVERY 7 YRS-US E SMARTSET# 3348 TO ORDER 03/15/2019 03/15/2012 DIABETES SCREEN EVERY 3 YRS- AGE 45 AND ABOVE 11/15/2019 11/14/2016, 03/31/2016, 08/05/2015, Additional history exists DTaP,Tdap,and Td Vaccines (2 - Td) 12/19/20212011 COLONOSCOPY-EVERY 5 YRS AGES 18-100 12/29/2021 12/29/2016, 12/29/2016 PNEUMOCOCCAL ADULT 65 YRS AND OVER Completed 10/13/2016, 07/08/2015, 08/16/2002 Influenza Vaccine (FLU shot) Completed 10/2016, 01/22/2016, 11/21/2014, Additional history exists as of this encounter Implants Not on fileas of this encounter Visit Diagnoses Diagnosis Kidney disease, chronic, sta ge III (GFR 30-59 ml/min) - Primary Chronic kidney disease, Stage III (moderate) Post-nasal drip Postnasal drip Cough HTN, goal below 140/90 Unspecified essential hypertension in this encounter Insurance Payer Benefit Plan / Group Subscriber ID Type Phone Address MEDICARE MEDICARE A AND B [id number] Medicare [place] [employer] [id number] as of this encounter"
--- OUTSIDE RECORDS SUMMARY | 2022-12-12 21:53 | External Medical Summary | Summary of Care ---
Author Name Unknown Organization [place] [address] Phone Care Team Providers Care Court Usher Name Role Phone Coco Darnell DO Primary Care Provider [phone] Encounter Details Date Type Department Care Team Description 04/12/2017 Scan Encounter Unspecified Department <No scans attached> [...] 1000 units Capsule Take by mouth. Active [place] 3 1200 MG CAPS Acti ve Biotin [...] Take 1,000 mg by mouth daily. Active as of this encounter Active Problems [...] as of this encounter Plan of Treatment Health Maintenance Due Date Last Done Comments CKD PHOS USE SMARTSET 45930 09/28/2016 03/31/2016, 0 08/06/2014 *DEPRESSION SCREENING, UNIQUE Macias FOR PTS 18 AND OVER 01/15/2017 CKD HGB USE SMARTSET 55740 03/31/201703/31, 08/05/2015, 08/06/2014, Additional history exists CKD GFR USE SMARTSET 27381 05/17/201711/14, 03/31/2016, 08/05/2015, Additional history exists CKD LDL USE SMARTSET 40323 ( STAGE 3) [place] 167[address] (STAGE 4) 11/14/2017 11/14/2016, 08/05/2015, 08/06/2014, Additional history exists CKD URINE PROTEIN/CREATININE RATION OR URINE MICROALBUMIN YEARLY USE SMARTSET 37924 01/18/2018 01/18/2017 DXA-SCREENING EVERY 7 YRS-US E [...] Implants Not on fileas of this encounter Insurance Payer Benefit Plan / Group Subscriber ID Type Phone Address MEDICARE MEDICARE A AND B [id number] Medicare [place] [employer] [id number] as of this encounter
--- OUTSIDE RECORDS SUMMARY | 2022-12-12 21:53 | External Medical Summary | Summary of Care ---
Author Name Unknown Organization [place] [address] Phone Care Team Providers Care Barrel Repairer Name Role Phone Coco Darnell Primary Care Provider Reason for Visit * Reason Comments COUGH CONGESTION Encounter Details Date Type Department Care Team Description 03/23/2017 Convenient Care Visit [facility] [address] [place] [address] SharerDenise PA-C [address], [place] [id number] Acute bronchitis, antibiotics not indicated* Allergies Active Allergy Reactions Severity Noted Date [...] 1000 units Capsule Take by mouth. Active [place] 3 1200 MG CAPS Acti ve Biotin [...] for Cough. 90 mL 0 03/23/2017 Active as of this encounter Active Problems [...] Vital Sign Reading Time Taken Blood Pressure 140/70 03/23/2017 6:05 PM EST Pulse 66 03/23/2017 6:05 PM EST Temperature 36.5 °C (97.7 °F) 03/23/2017 6 :05 PM EST Respiratory Rate 12 03/23/2017 6:05 PM EST Oxygen Saturation 100% 03/23/2017 6:0 5 PM EST Inhaled Oxygen Concentration - - Weight 73.1 kg (161 lb 3.2 oz) 03/23/19 18 6:05 PM EST Height 162.6 cm (5' 4") 03/23/2017 6:05 PM EST Body Mass Index 27.67 03/23/2017 6:05 PM EST in this encounter Instructions * Patient Instructions - Denise Westfall PA-C - 03/23/2017 6:42 PM EST Continue supportive measures - Tylenol and/or over the counter NSAIDS (such as ibuprofen, motrin, Advil) per package instructions for relief of any pain/fever. Try over the counter nasal saline for relief of nasal congestion. Use a cool mist humidifier/vaporizer for help with relief of congestion. Rest and keep hydrated. Follow-up with PCP if not improving within 3-5 days, sooner if worsening despite above measures. in this encounter Progress Notes * Denise Westfall PA-C - 03/23/2017 6:25 PM EST Formatting of this note may be different from the original. SUBJECTIVE Laurel Rios is a 77 year old female who is here to be evaluated for respiratory symptoms. Patient complains of productive cough 2 weeks. No wheezing or difficulty breathing. Denies sinus congestion or sinus pressure. Reports difficulty sleeping due to the cough. Patient was accompanied by Self. Severity of Symptoms: Moderate Modifying Factors (what was done since onset of symptoms): Mucinex and delsym Timing (how often does it occur): frequent cough especially at night time Quality (feels Like): chest congestion Other associated Signs and Symptoms: Denies fever, ear pain, sore throat, wheezing, nausea, vomiting. 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 90 Tab 1 • Cholecalciferol (VITAMIN D-3) 1000 units Capsule Take by mouth. • [place] 3 1200 MG CAPS • Biotin 1 MG Capsule • DULoxetine (CYMBALTA) 20 MG CPEP • [...] by mouth daily. 90 Tab 3 • NAPROXEN SODIUM 220 MG PO CAPS 1 daily • PROGESTERONE 1000 MG/60GM EX CREA apply once daily • ASPIRIN 81 MG PO TABS 2 daily • RED YEAST RICE 600 MG PO CAPS 1 daily • STOOL SOFTENER 100 MG PO TABS 1 tablet daily as needed for constipation dicyclomine (BENTYL) 10 MG Capsule Take 1 Cap by mouth 4 times a day as needed for Cramping. For abdominal pain 120 Cap 5 diazepam (VALIUM) 5 MG Tablet TAKE 1/2 TO ONE TABLET UP TO TWICE A DAY NEEDED FOR MUSCLE SPASM 180 Tab 1 Review of patient's allergies indicates: Allergen Reactions • Codeine Makes pt "goofy and dizzy" • Prednisone Other (Please comment) Severe depression [...] Sister hystoplamosis of the optic nerve, OU OBJECTIVE: BP 140/70 | Pulse 66 | Temp (Src) 97.7 (Tympanic) | Resp 12 | Ht 5' 4" (1.626m) | Wt 161 lbs 3.2 oz(73.120kg) | BMI 27.67 kg/m² | BSA 1.82 m² | SaO2 100% General: no acute distress, non-toxic Ears: External ears normal, Canals clear, TM's Normal Eyes: no proptosis, no periorbital inflammation or soft tissue edema, no orbital cellulitis Nose: no mucosal erythema, no mucosal edema, no purulent discharge, no septal hematoma Throat: no exudate, no erythema and lips, buccal mucosa, and tongue normal Neck: supple, no adenopathy Lungs: Clear to auscultation Heart: regular rate, regular rhythm, no murmurs , no rubs and no gallops Skin: skin color, texture, turgor are normal, no rashes or significant lesions Patient Instructions Continue supportive measures - Tylenol and/or over the counter NSAIDS (such as ibuprofen, motrin, Advil) per package instructions for relief of any pain/fever. Try over the counter nasal saline for relief of nasal congestion. Use a cool mist humidifier/vaporizer for help with relief of congestion. Rest and keep hydrated. Follow-up with PCP if not improving within 3-5 days, sooner if worsening despite above measures. ASSESSMENT AND PLAN J20.9 Acute bronchitis, antibiotics not indicated (primary encounter diagnosis) Plan: Guaifenesin-codeine 100-10 mg/5ml po syrp Sig:Take 5 ml by mouth every 4 hours as needed for cough. Patient has tolerated in the past, warned may cause sedation, advised to use at night time and avoid driving while taking codeine I have reviewed the patient’s controlled substance dispensing history in the Prescription Drug Monitoring Program in compliance with the [facility] regulations before prescribing a controlled substance. Denise Westfall PA-C [address] [address] in this encounter Nursing Notes * Solange Pemberton, FLOORWORKER - 03/23/2017 6:06 PM EST 77 yo female presents with congestion/cough x 2 weeks. Took mucinex/delsym in this encounter Plan of Treatment Upcoming Encounters Date Type Specialty Care Team Description 03/28/2017 Nurse Only Ancillary Gene HERNANDEZ, Nurse Annual Wellness, RN [address] [place] [address] Health Maintenance Due Date Last Done Comments CKD PHOS USE SMARTSET 44238 09/28/2016 03/31/2016, 0 08/06/2014 *DEPRESSION SCREENING, UNIQUE Macias FOR PTS 18 AND OVER 01/15/2017 CKD HGB USE SMARTSET 90685 03/31/201703/31, 08/05/2015, 08/06/2014, Additional history exists CKD GFR USE SMARTSET 65426 05/17/201711/14, 03/31/2016, 08/05/2015, Additional history exists CKD [place] USE SMARTSET 61301 ( STAGE 3) [place] [address] (STAGE 4) 11/14/2017 11/14/2016, 08/05/2015, 08/06/2014, Additional history exists CKD URINE PROTEIN/CREATININE RATION OR URINE MICROALBUMIN YEARLY USE SMARTSET 99996 01/18/2018 01/18/2017 DXA-SCREENING EVERY 7 YRS-US E [...] of this encounter Visit Diagnoses Diagnosis Acute bronchitis, antibiotic s not indicated - Primary Acute bronchitis in this encounter Insurance Payer Benefit Plan / Group Subscriber ID Type Phone Address MEDICARE MEDICARE A AND B [id number] Medicare [place] [employer] [id number] as of this encounter
--- OUTSIDE RECORDS SUMMARY | 2022-12-12 21:53 | External Medical Summary | Summary of Care ---
Author Name Unknown Organization [place] [address] Phone Care Team Providers Care Golf Course Manager Name Role Phone Coco Darnell DO Primary Care Provider [phone] Reason for Visit * Reason Comments MyCode Consent Encounter Details Date Type Department Care Team Description 03/27/2017 Orders Only Outcomes Research Department [address] [place] [address] Jennifer Steele CHRA MyCode Research Other*[id number]* Allergies Active Allergy Reactions Severity Noted Date [...] 1000 units Capsule Take by mouth. Active [place] 3 1200 MG CAPS Acti ve Biotin [...] amoxicillin-clavulan ate (AUGMENTIN) 875-125 MG per TabletIndications:Ac yavapai-apache sinusitis, recurrence not specified, unspecified location Take [...] as of this encounter Progress Notes * Jennifer Steele, ISRAELA - 03/27/2017 1:35 PM EST MyCode Consent Documentation Laurel Rios provided consent/authorization to participate in the MyCode Project. in this encounter Plan of Treatment Upcoming Encounters Date Type Specialty Care Team Description 03/28/2017 Nurse Only Ancillary Gene II, Nurse Annual Wellness, RN [address] [place] [address] Scheduled Tests Name Priority Associated Diagnoses Order S chedule MYCODE INITIAL ADULT Routine MyCode Research Other*[id number] Expected: 03/27/2017 (Approximate), Expires: 04/16/2018 Health Maintenance Due Date Last Done Comments CKD PHOS USE SMARTSET 82051 09/28/2016 03/31/2016, 0 08/06/2014 *DEPRESSION SCREENING, UNIQUE Macias FOR PTS 18 AND OVER 01/15/2017 CKD HGB USE SMARTSET 18199 03/31/201703/31, 08/05/2015, 08/06/2014, Additional history exists CKD GFR USE SMARTSET 86263 05/17/201711/14, 03/31/2016, 08/05/2015, Additional history exists CKD LDL USE SMARTSET 57032 ( STAGE 3) [place] [address] (STAGE 4) 11/14/2017 11/14/2016, 08/05/2015, 08/06/2014, Additional history exists CKD URINE PROTEIN/CREATININE RATION OR URINE MICROALBUMIN YEARLY USE SMARTSET 81993 01/18/2018 01/18/2017 DXA-SCREENING EVERY 7 YRS-US E [...] this encounter Visit Diagnoses Diagnosis MYCODE RESEARCH OTHER*[id number] - Primary in this encounter Insurance Payer Benefit Plan / Group Subscriber ID Type Phone Address MEDICARE MEDICARE A AND B [id number] Medicare [place] [employer] [id number] as of this encounter
--- OUTSIDE RECORDS SUMMARY | 2022-12-12 21:53 | External Medical Summary | Summary of Care ---
Author Name Unknown Organization [place] [address] Phone Care Team Providers Care Drywall Taper Name Role Phone Coco Darnell DO Primary Care Provider Reason for Visit * Reason Comments RECHECK Here for recheck Left Without Being Seen Encounter Details Date Type Department Care Team Description 01/16/2017 Office Visit [facility] [address] [place] [address] Coco Darnell DO [address] [place] [address] [phone] PPD screening test*;Left without being seen Allergies Active Allergy Reactions Severity Noted Date [...] 1000 units Capsule Take by mouth. Active [place] 3 1200 MG CAPS Active Biotin 1 MG Capsule Active WOMENS MULTIVITAMIN PLUS PO TABS 1 daily 7 Discontinued DHEA 10 MG CAPS Take 10 mg by mouth once. 1 Cap 0 09/30/2015 7 Discontinued valsartan (DIOVAN) 40 MG TabletIndications :Essential hypertension with goal blood pressure less than 150/90,LVH (left ventricular hypertrophy) due to hypertensive disease, without heart failure Take 1 Tab by mouth daily. 30 Tab 5 06/30/2016 7 Discontinued valsartan (DIOVAN) 80 MG TabletIndications :Hypertension goal BP (blood pressure) < 140/90 Take 1 Tab by mouth daily. 90 Tab 1 10/13/2016 7 Discontinued Lactobacillus (ACIDOPHILUS) 100 MG Capsule 7 Discontinued Multiple Vitamins-Minerals (OCUVITE-LUTEIN) Capsule 7 Discontinued as of this encounter Active Problems [...] Vital Sign Reading Time Taken Blood Pressure 138/78 01/16/2017 2:52 PM EDT Pulse 64 01/16/2017 2:52 PM EDT Temperature 36.8 °C (98.2 °F) 01/16/2017 2 :52 PM EDT Respiratory Rate 16 01/16/2017 2:52 PM EDT Oxygen Saturation - - Inhaled Oxygen Concentration - - Weight 71.7 kg (158 lb) 01/16/2017 2:52 PM EDT Height - - Body Mass Index 27.12 01/16/2017 2:52 PM EDT in this encounter Progress Notes * Coco Darnell, DO - 01/16/2017 2:40 PM EDT Patient left without being seen by the provider. She stated that she had another appointment and only wanted to have her PPD placed and to leave. See nursing documentation regarding this. in this encounter Plan of Treatment Upcoming Encounters Date Type Specialty Care Team Description 03/28/2017 Nurse Only Ancillary [place] II, Nurse Annual Wellness, RN [address] [facility] [place] [address] Health Maintenance Due Date Last Done Comments CKD PHOS USE SMARTSET 03347 09/28/2016 03/31/2016, 0 08/06/2014 *DEPRESSION SCREENING, UNIQUE Macias FOR PTS 18 AND OVER 01/15/2017 CKD HGB USE SMARTSET 88200 03/31/201703/31, 08/05/2015, 08/06/2014, Additional history exists CKD GFR USE SMARTSET 47810 05/17/201711/14, 03/31/2016, 08/05/2015, Additional history exists CKD LDL USE SMARTSET 89966 ( STAGE 3) [place] [address] (STAGE 4) 11/14/2017 11/14/2016, 08/05/2015, 08/06/2014, Additional history exists CKD URINE PROTEIN/CREATININE RATION OR URINE MICROALBUMIN YEARLY USE SMARTSET 90111 01/18/2018 01/18/2017 DXA-SCREENING EVERY 7 YRS-US E [...] on fileas of this encounter Results * PPD (01/18/2017) Component Value Ref Range PPD induration NEGATIVEComment:NEGATIVE PPD mm DATE OF PPD PLACEMENT yes HOURS BETWEEN PPD PLACEMENT AND READING 48 hours in this encounter Visit Diagnoses Diagnosis PPD screening test - Primary Screening examination for pulmonary tuberculosis Left without being seen in this encounter Insurance Payer Benefit Plan / Group Subscriber ID Type Phone Address MEDICARE MEDICARE A AND B [id number] Medicare [place] [employer] [id number] as of this encounter
--- OUTSIDE RECORDS SUMMARY | 2022-12-12 21:53 | External Medical Summary | Summary of Care ---
Author Name Unknown Organization [place] [address] Phone Care Team Providers Care Cabin Equipment Supervisor Name Role Phone Coco Hammond DO Primary Care Provider Reason for Visit * Reason Comments MEDICATION REFILL Encounter Details Date Type Department Care Team Description 04/20/2017 Refill [facility] [address] [place] [address] Coco Hammond DO [address] [place] [address] [phone] Benign hypertension with CKD (chronic kidney disease) stage III;HTN, goal below 140/90;LVH (left ventricular hypertrophy) due to hypertensive disease, without heart failure Allergies Active Allergy Reactions Severity Noted Date [...] 1000 units Capsule Take by mouth. Active [place] 3 1200 MG CAPS Active Biotin 1 MG Capsule Active guaiFENesin-codei ne (ROBITUSSIN AC) 100-10 MG/5ML [...] mouth daily. 90 Tab 1 04/20/2017 Active valsartan (DIOVAN) 80 MG TabletIndications :Benign hypertension with CKD (chronic kidney disease) stage III,HTN, goal below 140/90,LVH (left ventricular hypertrophy) due to hypertensive disease, without heart failure Take 1 Tab by mouth daily. 90 Tab 1 01/18/2017 8 Discontinued as of this encounter Active [...] Quit: 03/19 Smokeless Tobacco: Never Used Comments:quit 1988 Alcohol Use Drinks/Week oz/Week Comments No Sex Assigned at Date Recorded Not on file as of this encounter Miscellaneous Notes * Telephone Encounter - Coco Hammond DO - 04/20/2017 6:54 PM EST Signed Prescriptions: Disp Refills valsartan (DIOVAN) 80 MG Tablet 90 Tab 1 Sig: Take 1 Tab by mouth daily. Authorizing Provider: COCO HAMMOND * Telephone Encounter - Risa Yancey LPN - 04/20/2017 5:24 PM EST Pt changing pharmacies, last filled 01/18/2017 at [facility]. Pending Prescriptions: Disp Refills valsartan (DIOVAN) 80 MG Tablet 90 Tab 1 Sig: Take 1 Tab by mouth daily. Last Office Visit: 01/18/2017 Next Office Visit: No Future Appointments If no future appointments scheduled, and last appointment is greater than a year ago, please schedule patient for a follow-up appointment Last date the medication was ordered: Phone number(s): [phone] (home) Labs: CREATININE, RD URINE(mg/dL) Vasiliy Dt/Tm Resulted Value Status 01/18/17 12:55P 01/18/17 86 FINAL ALT(U/L) Vasiliy Dt/Tm Resulted Value Status 11/14/16 8:45A 11/14/16 20 FINAL LDL (CALCULATED)(mg/dL) Vasiliy Dt/Tm Resulted Value Status 11/14/16 8:45A 11/14/16 103 FINAL POTASSIUM(mmol/L) Vasiliy Dt/Tm Resulted Value Status 11/14/16 8:45A 11/14/16 4.8 FINAL TSH(uIU/mL) Vasiliy Dt/Tm Resulted Value Status 08/05/15 8:59A 08/05/15 1.77 FINAL Hemoglobin AIC Results: No HEMOGLOBIN, A1C components found in this encounter Plan of Treatment Health Maintenance Due Date Last Done Comments CKD PHOS USE SMARTSET 03500 09/28/2016 03/31/2016, 0 08/06/2014 *DEPRESSION SCREENING, LILLIANUA Gilberto FOR PTS 18 AND OVER 01/15/2017 CKD HGB USE SMARTSET 93247 03/31/201703/31, 08/05/2015, 08/06/2014, Additional history exists CKD GFR USE SMARTSET 26132 05/17/201711/14, 03/31/2016, 08/05/2015, Additional history exists CKD LDL USE SMARTSET 45827 ( STAGE 3) [place] [address] (STAGE 4) 11/14/2017 11/14/2016, 08/05/2015, 08/06/2014, Additional history exists CKD URINE PROTEIN/CREATININE RATION OR URINE MICROALBUMIN YEARLY USE SMARTSET 73215 01/18/2018 01/18/2017 DXA-SCREENING EVERY 7 YRS-US E [...] HTN, goal below 140/90 Unspecified essential hypertension LVH (left ventricular hypert rophy) due to hypertensive disease, without heart failure in this encounter Insurance Payer Benefit Plan / Group Subscriber ID Type Phone Address MEDICARE MEDICARE A AND B [id number] Medicare [place] [employer] [id number] as of this encounter
--- OUTSIDE RECORDS SUMMARY | 2022-12-12 21:53 | External Medical Summary | Summary of Care ---
Author Name Unknown Organization [place] [address] Phone Care Team Providers Care Starter Cup Powder Mixer Name Role Phone Coco Darnell DO Primary Care Provider Reason for Visit * Reason Comments OTHER Encounter Details Date Type Department Care Team Description [facility] [address] [place] [facility] [place] [address] Coco Darnell DO [address], [place] [id number] OTHER Allergies Active Allergy Reactions Severity Noted Date [...] 1000 units Capsule Take by mouth. Active [place] 3 1200 MG CAPS Acti ve Biotin [...] encounter Miscellaneous Notes * Telephone Encounter - Tatiana Baldwin LPN - 03/23/2017 4:42 PM EST Pt was given several options about being seen. Pt was advised while at the office, she may wait andsee when the provider can fit her in to be seen today. Explained to pt this is not a walk in clinicand she does need an appt and her provider she is wanting to see is doing their best accomodating all of her patients whom are sick and wanting an appt. It was observed while patient sat in the waiting area sucking on a lolly pop, making jeering eye contact with front office staff and mimicking hand gestures toward front staff ( child like) while they attempted to talk to her and offer her options to being seen. She was in no apparent distress. * Telephone Encounter - Laureen Nixon, MARIFER - 03/23/2017 1:51 PM EST Pt is here now with her neighbor, she is persistent for someone to listen to her chest. We offered the walk in clinic as well as other clinics. Pt does not want to go anywhere else. Thank you in this encounter Plan of Treatment Upcoming Encounters Date Type Specialty Care Team Description 03/28/2017 Nurse Only Ancillary [place] II, Nurse Annual Wellness, RN [address] [place] [address] Health Maintenance Due Date Last Done Comments CKD PHOS USE SMARTSET 49227 09/28/2016 03/31/2016, 0 08/06/2014 *DEPRESSION SCREENING, UNIQUE Macias FOR PTS 18 AND OVER 01/15/2017 CKD HGB USE SMARTSET 26246 03/31/201703/31, 08/05/2015, 08/06/2014, Additional history exists CKD GFR USE SMARTSET 25529 05/17/201711/14, 03/31/2016, 08/05/2015, Additional history exists CKD LDL USE SMARTSET 34104 ( STAGE 3) [place] [address] (STAGE 4) 11/14/2017 11/14/2016, 08/05/2015, 08/06/2014, Additional history exists CKD URINE PROTEIN/CREATININE RATION OR URINE MICROALBUMIN YEARLY USE SMARTSET 54299 01/18/2018 01/18/2017 DXA-SCREENING EVERY 7 YRS-US E [...] Phone Address MEDICARE MEDICARE A AND B [id number] Medicare [employer] [id number] as of this encounter
--- OUTSIDE RECORDS SUMMARY | 2022-12-12 21:53 | External Medical Summary | Summary of Care ---
Author Name Unknown Organization [place] [address] Phone Care Team Providers Care Counseling Services Director Name Role Phone Coco Darnell Primary Care Provider Reason for Visit * Reason Comments APPOINTMENT Encounter Details Date Type Department Care Team Description 02/24/2017 Telephone [facility] Surgery, [facility] [address] [facility] [place] [address] Jayson Holliday MD [address] [place] [address] [phone] APPOINTMENT Allergies Active Allergy Reactions Severity Noted Date [...] 1000 units Capsule Take by mouth. Active [place] 3 1200 MG CAPS Acti ve Biotin [...] encounter Miscellaneous Notes * Telephone Encounter - Hortencia Blount OSA - 02/27/2017 8:20 AM EST Noted and added to cosmetic call list for Dr Holliday. * Telephone Encounter - Tatiana Villa LPN - 02/24/2017 10:10 AM EST Patient calling to request appointment with Dr. Holliday to discuss issues with aging face. Advised patient Dr. Holliday is out on medical leave and she will be called to schedule when dates are available. Tatiana Villa LPN in this encounter Plan of Treatment Upcoming Encounters Date Type Specialty Care Team Description 03/28/2017 Nurse Only Ancillary [facility], Nurse Annual Wellness, RN [address] [place] [facility] [address] Health Maintenance Due Date Last Done Comments CKD PHOS USE SMARTSET 70792 09/28/2016 03/31/2016, 0 08/06/2014 *DEPRESSION SCREENING, UNIQUE Macias FOR PTS 18 AND OVER 01/15/2017 CKD HGB USE SMARTSET 40004 03/31/201703/31, 08/05/2015, 08/06/2014, Additional history exists CKD GFR USE SMARTSET 52188 05/17/201711/14, 03/31/2016, 08/05/2015, Additional history exists CKD LDL USE SMARTSET 63998 ( STAGE 3) [place] [address] (STAGE 4) 11/14/2017 11/14/2016, 08/05/2015, 08/06/2014, Additional history exists CKD URINE PROTEIN/CREATININE RATION OR URINE MICROALBUMIN YEARLY USE SMARTSET 23246 01/18/2018 01/18/2017 DXA-SCREENING EVERY 7 YRS-US E [...] Phone Address MEDICARE MEDICARE A AND B [id number] Medicare [place] [employer] [id number] as of this encounter
--- OUTSIDE RECORDS SUMMARY | 2022-12-12 21:53 | External Medical Summary | Summary of Care ---
Author Name Unknown Organization [place] [address] Phone Care Team Providers Care Machines Technician Name Role Phone Coco Darnell DO Primary Care Provider Reason for Visit * Reason Comments ADVICE Encounter Details Date Type Department Care Team Description 05/20/2017 Telephone Dermatology [facility] [address] [place] [address] Thu Posey MD [address] [place] [address] [phone] ADVICE Allergies Active Allergy Reactions Severity Noted [...] 1000 units Capsule Take by mouth. Active [place] 3 1200 MG CAPS Active Biotin 1 [...] encounter Miscellaneous Notes * Telephone Encounter - Michelle Degroot OSA - 05/25/2017 3:56 PM EST Pt returned call. Scheduled for 11/[address] Arnett. * Telephone Encounter - Hillary Alvarado MARIFER - 05/22/2017 1:56 PM EST Called patient, left message that Dr. Velasquez or Dr. Arnett can see her for her hair loss but they are booked out till November & for her to call back if she would like to schedule an appointment. * Telephone Encounter - Dmoinique Watson, MARIFER - 05/20/2017 12:18 PM EST Pt calling to see who else can see her besides Dr. Morales for hair loss. Pt stated she no longerwants to see her. Please call pt back regarding this. Thank you. in this encounter Plan of Treatment Upcoming Encounters Date Type Specialty Care Team Description 08/25/2017 Office Visit Family Practice Coco Darnell DO [address] [id number] 11/28/2017 Office Visit Dermatology Laurel Arnett MD [address] [place], [place] [address] [address] Health Maintenance Due Date Last Done Comments *DEPRESSION SCREENING, UNIQUE Macias FOR PTS 18 AND OVER 01/15/2017 CKD HGB USE SMARTSET 82941 03/31/201703/31, 08/05/2015, 08/06/2014, Additional history exists CKD PHOS USE SMARTSET 26746 03/31/2017 03/31/2016, 0 08/06/2014 CKD GFR USE SMARTSET 62043 05/17/201711/14, 03/31/2016, 08/05/2015, Additional history exists CKD LDL USE SMARTSET 59301 ( STAGE 3) [place] 5[address]12 (STAGE 4) 11/14/2017 11/14/2016, 08/05/2015, 08/06/2014, Additional history exists CKD URINE PROTEIN/CREATININE RATION OR URINE MICROALBUMIN YEARLY USE SMARTSET 75462 01/18/2018 01/18/2017 DXA-SCREENING EVERY 7 YRS-US E [...] Phone Address MEDICARE MEDICARE A AND B [id number] Medicare [place] [employer] [id number] as of this encounter
--- OUTSIDE RECORDS SUMMARY | 2022-12-12 21:53 | External Medical Summary | Summary of Care ---
Author Name Unknown Organization [place] [address] Phone Care Team Providers Care Web Application Tester Name Role Phone Coco Darnell DO Primary Care Provider Reason for Visit * Reason Comments ADVICE Encounter Details Date Type Department Care Team Description 05/20/2017 Telephone Dermatology [facility] [address] [place] [address] Thu Posey MD [address] [place] [address] [phone] ADVICE Allergies Active Allergy Reactions Severity Noted [...] 1000 units Capsule Take by mouth. Active [place] 3 1200 MG CAPS Active Biotin 1 [...] encounter Miscellaneous Notes * Telephone Encounter - Hillary Alvarado OSA - 05/22/2017 1:56 PM EST Called patient, left message that Dr. Velasquez or Dr. Arnett can see her for her hair loss but they are booked out till November & for her to call back if she would like to schedule an appointment. * Telephone Encounter - Dominique Watson OSA - 05/20/2017 12:18 PM EST Pt calling to see who else can see her besides Dr. Morales for hair loss. Pt stated she no longerwants to see her. Please call pt back regarding this. Thank you. in this encounter Plan of Treatment Upcoming Encounters Date Type Specialty Care Team Description 08/25/2017 Office Visit [facility] Coco Darnell, DO [address] [address] [phone] Health Maintenance Due Date Last Done Comments *DEPRESSION SCREENING, UNIQUE Macias FOR PTS 18 AND OVER 01/15/2017 CKD HGB USE SMARTSET 32268 03/31/201703/31, 08/05/2015, 08/06/2014, Additional history exists CKD PHOS USE SMARTSET 92665 03/31/2017 03/31/2016, 0 08/06/2014 CKD GFR USE SMARTSET 17170 05/17/201711/14, 03/31/2016, 08/05/2015, Additional history exists CKD LDL USE SMARTSET 92691 ( STAGE 3) [place] [address] (STAGE 4) 11/14/2017 11/14/2016, 08/05/2015, 08/06/2014, Additional history exists CKD URINE PROTEIN/CREATININE RATION OR URINE MICROALBUMIN YEARLY USE SMARTSET 42888 01/18/2018 01/18/2017 DXA-SCREENING EVERY 7 YRS-US E [...] Phone Address MEDICARE MEDICARE A AND B [id number] Medicare [place] [employer] [id number] as of this encounter
--- OUTSIDE RECORDS SUMMARY | 2022-12-12 21:54 | External Medical Summary ---
Author Name Unknown Address [address] [phone] Phone Organization K01:[facility] [address] [facility] [address] Laboratory Report Ordering Provider Test Date Status MANISH BAUMAN DO 03/31/2016 13:41:00 Final Obs # Observation Date Value Abnormality Reference Status Performing Location 0 BUN 03/31/2016 22:58 19 6-20 Final [facility] [address] [facility] [address] 1 Creatinine 03/31/2016 22:58 1.0 0.5-1.0 Final
--- OUTSIDE RECORDS SUMMARY | 2022-12-12 21:54 | External Medical Summary ---
Author Name Unknown Address [facility] [address] [id number] Phone Organization K01:[facility] [address] [id number] Laboratory Report Ordering Provider Test Date Status MANISH BAUMAN DO [id number] Final Obs # Observation Date Value Abnormality Reference Status Performing Location 0 BUN [id number] 18 6-20 Final [facility] [address] [facility] [address] 1 Creatinine [id number] 1.1 Above high normal 0.5-1.0 Final [facility] [address] [facility] [address]
--- OUTSIDE RECORDS SUMMARY | 2022-12-12 21:54 | External Medical Summary ---
Author Name Unknown Organization K01:[facility], [address] [address] Laboratory Report Ordering Provider Test Date Status KELLY AYONMACRINA CEE 08/06/2014 09:41:00-0400 Final Obs # Observation Date Value ABNL Reference Status Pe rforming Location 1 TSH 08/06/2014 18:15-0400 2.28 0.27-4.2 uIU/mL Final
--- OUTSIDE RECORDS SUMMARY | 2022-12-12 21:54 | External Medical Summary ---
Author Name Unknown Address Unknown Organization [id number]:Performed at [address] [address] Laboratory Report Ordering Provider Test Date Status MANISH BAUMAN 11/14/2016 08:45:00 Final Observation Date Value Abnormality Reference Status Fasting status - Reported 11/14/2016 08:49 12 Final Triglyceride 11/14/2016 15:00 79 <200 Final Performing Location Performed at [facility] [address] [facility] [address]
--- OUTSIDE RECORDS SUMMARY | 2022-12-12 21:54 | External Medical Summary ---
Author Name GABO ECE Organization K01:[facility], [address] [address] Support Name Relationship Address Phone GABO CEEKELLY PROV Unknown Unavailabl e Laboratory Report Ordering Provider Test Date Status KELLY AYON DO 09/20/2011 08:56:00-0400 Final Obs # Observation Date Value ABNL Reference Status Pe rforming Location 1 T4, Free 09/20/2011 21:06-0400 0.98 0.7-1.7 ng/dL Final
--- OUTSIDE RECORDS SUMMARY | 2022-12-12 21:54 | External Medical Summary ---
Author Name Unknown Address [address] [facility] [place] [address] Phone Organization K01:[facility] [address] [facility] [address] Laboratory Report Ordering Provider Test Date Status MANISH BAUMAN DO 03/31/2016 13:41:00 Final Obs # Observation Date Value Abnormality Reference Status Performing Location 0 WBC, Total 03/31/2016 22:40 8.15 4.00-10.80 Final [facility] [address] [facility] [address] 1 RBC 03/31/2016 22:40 4.69 3.85-5.15 Final 2 Hemoglobin 03/31/2016 22:40 13.9 12.0-15.3 Final 3 HCT 03/31/2016 22:40 40.9 36.0-45.2 Final 4 MCV 03/31/2016 22:40 87.2 81.5-97.5 Final 5 MCH 03/31/2016 22:40 29.6 27.0-34.0 Final 6 MCHC 03/31/2016 22:40 34.0 32.0-36.0 Final 7 RDW 03/31/2016 22:40 11.6 11.5-15.5 Final 8 Platelets 03/31/2016 22:40 266 140-400 Final 9 MPV 03/31/2016 22:40 10.7 6.6-11.1 Final 10 NEUT 03/31/2016 22:40 69.8 40-75 Final 11 Lymphs % 03/31/2016 22:40 20.0 18-42 Final 12 Monos 03/31/2016 22:40 7.7 1-11 Final 13 Eosinophils 03/31/2016 22:40 1.7 0-6 Final 14 Basos 03/31/2016 22:40 0.6 0-2 Final 15 Immature Granulocyte, Percent 03/31/2016 22:40 0.2 0-2 Final 16 ANEUT 03/31/2016 22:40 5.68 1.8-7.7 Final 17 Lymphs, absolute 03/31/2016 22:40 1.63 1.0-4.8 Final 18 Monos, Abs 03/31/2016 22:40 0.63 0.0-1.1 Final 19 Eos, Abs 03/31/2016 22:40 0.14 0.0-0.7 Final 20 Basos, Abs 03/31/2016 22:40 0.05 0.0-0.2 Final 21 Immature Granulocytes, Number 03/31/2016 22:40 0.02 0.0-0.2 Final
--- OUTSIDE RECORDS SUMMARY | 2022-12-12 21:54 | External Medical Summary ---
Author Name Unknown Organization [id number] Laboratory Report Ordering Provider Test Date Status KELLY AYON DO 08/06/2014 09:41:00-0400 Final Obs # Observation Date Value ABNL Reference Status Pe rforming Location 1 hours fasting 08/06/2014 09:42-0400 12 hours Final 2 Triglyceride 08/06/2014 17:52-0400 76 <200 mg/dL Final TRIGLYCERIDE REFERENCE RANGES (mg/dL) <150 NORMAL 150-199 BORDERLINE HIGH 200-499 HIGH >499 VERY HIGH TOTAL CHOLESTEROL REFERENCE RANGES(mg/dL) <200 DESIRABLE 200-239 BORDERLINE HIGH >239 HIGH HDL CHOLESTEROL REFERENCE RANGES(mg/dL) <40 LOW(UNDESIRABLE) >59 HIGH(DESIRABLE) LDL CHOLESTEROL REFERENCE RANGES(mg/dL) <100 OPTIMAL GOAL FOR HIGH RISK PATIENTS 100-129 NEAR OR ABOVE NORMAL 130-159 BORDERLINE HIGH 160-189 HIGH >189 VERY HIGH
--- OUTSIDE RECORDS SUMMARY | 2022-12-12 21:54 | External Medical Summary ---
Author Name Unknown Organization K01:[facility], [address] [address] Laboratory Report Ordering Provider Test Date Status KELLY IYERSILVIA CEE 02/19/2013 09:55:00-0500 Final Obs # Observation Date Value ABNL Reference Status Pe rforming Location 1 TSH 02/19/2013 19:34-0500 1.96 0.27-4.2 uIU/mL Final
--- OUTSIDE RECORDS SUMMARY | 2022-12-12 21:54 | External Medical Summary ---
Author Name Unknown Address [address] [phone] Phone Organization K01:[facility] [address] [facility] [address] Laboratory Report Ordering Provider Test Date Status MANISH BAUMAN DO 03/31/2016 13:41:00 Final Obs # Observation Date Value Abnormality Reference Status Performing Location 0 Parathyrin.intact [Mass/volume] in Serum or Plasma 03/31/2016 22:58 41 15-65 Final [facility] [address] [facility] [address]
--- OUTSIDE RECORDS SUMMARY | 2022-12-12 21:54 | External Medical Summary ---
Author Name Unknown Organization K01:[facility], [address] [address] Laboratory Report Ordering Provider Test Date Status KELLY AYON DO 08/06/2014 09:41:00-0400 Final Obs # Observation Date Value ABNL Reference Status Pe rforming Location 1 PTH, intact 08/06/2014 19:01-0400 38 15-65 pg/mL Final
--- OUTSIDE RECORDS SUMMARY | 2022-12-12 21:54 | External Medical Summary ---
Author Name Unknown Address [address] [place] [address] Phone Organization K01:[place] [id number] Laboratory Report Ordering Provider Test Date Status MITULMANISH 10/13/2016 14:25:00 Final Observation Date Value Abnormality Reference Status Noninvasive colorectal cancer DNA and occult blood screening [Presence] in Stool 11/09/2016 17:14 SEE SEPARATE REPORT Final Performing Location [address] [address]
--- OUTSIDE RECORDS SUMMARY | 2022-12-12 21:54 | External Medical Summary ---
Author Name Unknown Organization K0G:[facility] Angelika Garcia, [address], [place] [address] Laboratory Report Ordering Provider Test Date Status KELLY AYON DO 08/06/2014 09:41:00-0400 Final Obs # Observation Date Value ABNL Reference Status Pe rforming Location 1 WBC 08/06/2014 10:59-0400 4.95 4.00-10.80 K/uL Final 2 RBC 08/06/2014 10:59-0400 4.46 3.85-5.15 M/uL Final 3 HGB 08/06/2014 10:59-0400 13.4 12.0-15.3 g/dL Final 4 HCT 08/06/2014 10:59-0400 40.0 36.0-45.2 % Final 5 MCV 08/06/2014 10:59-0400 89.7 81.5-97.5 fL Final 6 MCH 08/06/2014 10:59-0400 30.0 27.0-34.0 pg Final 7 MCHC 08/06/2014 10:59-0400 33.5 32.0-36.0 g/dL Final 8 RDW 08/06/2014 10:59-0400 11.6 11.5-15.5 % Final 9 PLT 08/06/2014 10:59-0400 232 140-400 K/uL Final 10 MPV 08/06/2014 10:59-0400 10.2 6.6-11.1 fL Final
--- OUTSIDE RECORDS SUMMARY | 2022-12-12 21:54 | External Medical Summary ---
Author Name Unknown Organization K09:[facility] [address] [facility] [address] Laboratory Report Ordering Provider Test Date Status KELLY AYON DO 02/19/2013 09:55:00-0500 Final Obs # Observation Date Value ABNL Reference Status Pe rforming Location 1 BUN 02/19/2013 15:37-0500 21 H 6-20 mg/dL Final 2 Creatinine 02/19/2013 15:37-0500 1.0 0.5-1.2 mg/dL Final GFR should be used to assess renal function. Plasma/Serum creatinine may not be able to properly reflect renal function in some cases.
--- OUTSIDE RECORDS SUMMARY | 2022-12-12 21:54 | External Medical Summary ---
Author Name Unknown Address [address] [place], [place] [id number] Phone Organization K01:[place] [id number] Laboratory Report Ordering Provider Test Date Status PEDRITO BAUMANSARATHKAISER 01/18/2017 12:55:00 Final Observation Date Value Abnormality Reference Status Albumin, Urine 01/18/2017 22:37 <1.20 Final Creatinine [Moles/volume] in Urine 01/18/2017 22:37 86 Final Microalbumin / Creatinine Ratio 01/18/2017 22:37 <14 <30 Final Performing Location [address] [address]
--- OUTSIDE RECORDS SUMMARY | 2022-12-12 21:54 | External Medical Summary ---
Author Name Unknown Organization K0G:[facility] Angleika Garcia, [address], [facility] [address] Laboratory Report Ordering Provider Test Date Status KELLY AYON DO 02/19/2013 09:55:00-0500 Final Obs # Observation Date Value ABNL Reference Status Pe rforming Location 1 hours fasting 02/19/2013 09:56-0500 12 hours Final 2 Triglyceride 02/19/2013 17:49-0500 103 <200 mg/dL Final TRIGLYCERIDE REFERENCE RANGES (mg/dL) [...]
--- OUTSIDE RECORDS SUMMARY | 2022-12-12 21:54 | External Medical Summary | Summary of Care ---
Author Name Unknown Organization [place] [address] Phone Care Team Providers Care Line Walker Name Role Phone Coco Darnell DO Primary Care Provider [phone] Reason for Visit * Auth/Cert (Within 10 days (routine)) Status Reason Specialty Diagnoses / Procedures Referre d By Contact Referred To Contact Diagnoses Colon cancer screening Procedures COLONOSCOPY, DIAGNOSTIC (RECTUM) Encounter Details Date Type Department Care Team Description 12/29/2016 Hospital Encounter [facility]O [facility], Endoscopy Room [facility] [address] [address] Ruslan Kelly MD [address] [place] [address] [phone] Colonoscopy Allergies Active Allergy Reactions Severity Noted Date [...] 600 MG PO CAPS 1 daily Active WOMENS MULTIVITAMIN PLUS PO TABS 1 daily Active PROGESTERONE 1000 MG/60GM EX [...] or juice. 1 Bottle 2 08/12/2015 Active DHEA 10 MG CAPS Take 10 mg by mouth once. 1 Cap 0 09/30/2015 Active gabapentin (NEURONTIN) 100 MG Capsule Take 3 times a day 1 Cap 0 01/22/2016 Active tiZANidine (ZANAFLEX) 4 MG Tablet Take 0.5 Tabs by mouth. 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 30 Tab 5 06/30/2016 Active valsartan (DIOVAN) 80 MG TabletIndications:Hy pertension goal BP (blood pressure) < 140/90 Take 1 Tab by mouth daily. 90 Tab 1 10/13/2016 Active dicyclomine (BENTYL) 10 MG CapsuleIndications:I rritable bowel syndrome with both constipation and diarrhea Take 1 Cap by mouth 4 times a day as needed for Cramping. For abdominal pain 120 Cap 5 10/13/2016 Active Cholecalciferol (VITAMIN D-3) 1000 units Capsule Take by mouth. Active [place] 3 1200 MG CAPS Acti ve Biotin 1 MG Capsule Activ e Lactobacillus (ACIDOPHILUS) 100 MG Capsule Active Multiple Vitamins-Minerals (OCUVITE-LUTEIN) Capsule Active as of this encounter Active Problems Problem Noted Date Sciatica without lumbago 03/31/2016 Inflammation of sacroiliac joint (HCC) 0 03/31/2016 Kidney disease, chronic, stage III (GFR 30-59 ml/min) 05/13/2013 Overview: Per CKD protocol #1 Hx of nonmelanoma skin cancer 12/01/2011 Overview: BCC Posterior neck 11/2011, L forehead 2009, nose in distant past ADVANCE DIRECTIVE INFORMATION 11/25/2009 Overview: Yes, Patient instructed to provide copy of advance directive for provider to review and to be scanned into Electronic Medical Record Depression 08/16/2002 GENERALIZED ANXIETY DIS 08/16/2002 Irritable bowel syndrome 08/16/2002 Overview: Constipation dominant Myalgia 07/29/2002 Hypothyroidism 07/29/2002 Dyslipidemia, goal LDL below 130 Overview: on red yeast rice in place of statin BONE & CARTILAGE DIS NOS - Osteopenia Overview: osteopenia Posttraumatic stress disorder Overview: sees Psychologist Cervicalgia Overview: due to muscle spasms Spasm of muscle Overview: sees chiropractor, used to get trigger point injections Vitamin D deficiency Posture abnormality Overview: Head forward positioning contributing to her neck and arm pain. as of this encounter Immunizations Name Dates Previously Given Next Due PPD 01/29/2016,02/20/2015,02/10/2015 Pneumococcal Conjugate Vacc, 13 Valent (Prevnar) 07/08/2015 Pneumococcal Polyvalent Vacc (Pneumovax) 10/13/2016,08/16/2002 Seasonal Influenza, Cell Cul ture, 18 Yrs & Older 02/01/2013 Seasonal Influenza, Quadriva lent, No Preserve, IM 01/22/2016 Seasonal Influenza, Trivalen t, with Preserve, 3yr & Above, Split 11/21/2014,11/19/2013,12/20/2011,01/18,01/18/2010 TDAP (age 10 and older)(Boostrix) 12/20/2011 Varicella [...] Vital Sign Reading Time Taken Blood Pressure 113/69 12/29/2016 3:00 PM EDT Pulse 63 12/29/2016 3:00 PM EDT Temperature 36 °C (96.8 °F) 12/29/2016 2:3 0 PM EDT Respiratory Rate 16 12/29/2016 3:00 PM EDT Oxygen Saturation 95% 12/29/2016 3:0 0 PM EDT Inhaled Oxygen Concentration - - Weight 73 kg (161 lb) 12/29/2016 1:19 PM EDT Height 162.6 cm (5' 4") 12/29/2016 1:19 PM EDT Body Mass Index 27.64 12/29/2016 1:19 PM EDT in this encounter Plan of Treatment Upcoming Encounters Date Type Specialty Care Team Description 01/16/2017 Office Visit Family Practice Coco Darnell DO [address] [address] [phone] 03/28/2017 Nurse Only Ancillary Georges Mills II, Nurse Annual Wellness, RN [address] [address] Pending Results Name Priority Associated Diagnoses Date/Ti fl SURGICAL PATHOLOGY Routine 7 2:28 PM EDT Scheduled Tests Name Priority Associated Diagnoses Order S chedule SURGICAL PATHOLOGY Routine One Time for 1 Occurrences starting 12/29/2016 until 12/29/2016 Health Maintenance Due Date Last Done Comments CKD URINE PROTEIN/CREATININE RATION OR URINE MICROALBUMIN YEARLY USE SMARTSET 50581 01/10/1960 CKD PHOS USE SMARTSET 83446 09/28/2016 03/31/2016, 0 08/06/2014 Influenza Vaccine (FLU shot) (#1) 2016 01/22/2016, 11/21/2014, 11/19/2013, Additional history exists CKD HGB USE SMARTSET 71728 03/31/201703/31, 08/05/2015, 08/06/2014, Additional history exists CKD GFR USE SMARTSET 66799 05/17/201711/14, 03/31/2016, 08/05/2015, Additional history exists CKD LDL USE SMARTSET 66049 ( STAGE 3) [place] 08034 (STAGE 4) 11/14/2017 11/14/2016, 08/05/2015, 08/06/2014, Additional history exists BREAST CANCER SCREENING DISC USSION YEARLY AGES 40-75 12/15/2017 12/15/2016, 12/12/2016, 12/07/2015, Additional history exists DXA-SCREENING EVERY 7 YRS-US E SMARTSET# 3348 TO ORDER 03/15/2019 03/15/2012 DIABETES SCREEN EVERY 3 YRS- AGE 45 AND ABOVE 11/15/2019 11/14/2016, 03/31/2016, 08/05/2015, Additional history exists TETANUS EVERY 10 YEARS-TDAP (BOOSTRIX OR ADACEL) SUGGESTED IF NOT RECEIVED IN THE PAST. 12/19/2021 12/20/2011 COLONOSCOPY-EVERY 10 YRS AGE S 50-75 12/29/2026 12/29/2016, 12/29/2016, 08/30/2005 (Done elsewhere) PNEUMOCOCCAL ADULT 65 YRS AND OVER Completed 10/13/2016, 07/08/2015, 08/16/2002 as of this encounter Implants Not on fileas of this encounter Procedures Procedure Name Priority Date/Time Associated Diagnosis Comments COLONOSCOPY FLEXIBLE PROXIMAL DIAGNOSTIC 12/29/2016 1:30 PM EDT Colon cancer screening in this encounter Results * COLONOSCOPY (12/29/2016 1:55 PM) Procedure Note Ruslan Kelly MD - 12/29/2016 1:55 PM EDT [facility] Patient Name: Laurel Rios Procedure Date: 12/29/2016 1:55 PM Date of : 1940 Admit Type:Outpatient NoteStatus:Finalized Date of : 1940 Admit Type: Outpatient Age: 76 Room: [facility] 2 Gender: Female Note Status: Finalized Procedure: Colonoscopy Indications: Screening for colorectal malignant neoplasm, Chronic Constipation Providers: Ruslan Kelly MD (Doctor) Referring MD: Coco Darnell (Referring MD) Medicines: General Anesthesia Complications: No immediate complications. Estimated blood loss: None. Procedure: Pre-Anesthesia Assessment: - - Prior to the procedure, a History and Physical was performed, patient medications, allergies andsensitivities were reviewed. The patient's tolerance of previous anesthesia was reviewed. See Epic for further details. - The risks, benefits, and alternatives of theprocedure including the sedation options and risks were discussedwith the patient. All questions were answered and informed consent was obtained. - Patient identification and proposed procedure were verified prior to the procedure by the physician andthe nurse. The procedure was verified in the procedureroom. - See the other procedure note for documentation of the pre-procedure assessment. After I obtained informed consent, the scope wascarefully and meticulously passed under direct vision only whenthe lumen was definitively identified. CO2 insufflation was utilized throughout the entire procedure exclusively. After I obtained informed consent, the scope was passed under direct vision. Throughout the procedure, thepatient's blood pressure, pulse, and oxygen saturations weremonitored continuously. The colonoscopy was performed without difficulty. The patient tolerated the procedure well.The quality of the bowel preparation was good. [id number] Colonoscope ([id number]) was introduced through the anusand advanced to the cecum, identified by appendiceal orificeand ileocecal valve. Findings: A 4 mm polyp was found in the ascending colon. The polyp wassessile. The polyp was removed with a cold snare. Resection and retrievalwere complete. A 6 mm polyp was found in the hepatic flexure. The polyp wassessile. The polyp was removed with a cold snare. Resection and retrievalwere complete. Multiple small-mouthed diverticula were found in the sigmoid colon. Internal hemorrhoids were found during retroflexion. The exam was otherwise without abnormality on direct andretroflexion views. Impression: - One 4 mm polyp in the ascending colon, removed with acold snare. Resected and retrieved. - One 6 mm polyp at the hepatic flexure, removed with acold snare. Resected and retrieved. - Diverticulosis in the sigmoid colon. - Internal hemorrhoids. - The examination was otherwise normal on direct and retroflexion views. Recommendation: - Discharge patient to home (with escort). - Return to referring physician as previouslyscheduled. - Repeat colonoscopy for surveillance based onpathology results. Ruslan Kelly MD 12/29/2016 2:29:01 PM This report has been signed electronically. in this encounter Administered Medications Inactive Administered Medications - up to 3 most recent administrations Medication Order MAR Action Action Date Dose Rate Site plasma-LYte 148 infusion Intravenous, EQUIVALENT TO LACTATED RINGERS AND ISOLYTE-S New Bag 12/29/2016 13:26 EDT 1,000 mL 100 mL/hr in this encounter Insurance Payer Benefit Plan / Group Subscriber ID Type Phone Address MEDICARE MEDICARE A AND B [id number] Medicare [place], [place] COMMERCIAL INS COMMERCIAL INS [id number] [place] [address] Home: [address] [facility] [address] [place] [address] as of this encounter
--- OUTSIDE RECORDS SUMMARY | 2022-12-12 21:54 | External Medical Summary ---
Author Name Unknown Address Unknown Organization : Laboratory Report Ordering Provider Test Date Status MANISH BAUMAN DO [id number] Final Obs # Observation Date Value Abnormality Reference Status Performing Location 0 hours fasting [id number] 12 Final 1 Triglyceride [id number] 97 <200 Final
--- OUTSIDE RECORDS SUMMARY | 2022-12-12 21:54 | External Medical Summary ---
Author Name Unknown Address [address] [id number] Phone Organization K01:[facility] [address] [id number] Laboratory Report Ordering Provider Test Date Status MANISH BAUMAN DO [id number] Final Obs # Observation Date Value Abnormality Reference Status Performing Location 0 TSH [id number] 1.77 0.27-4.2 Final [facility] [address] [facility] [address] 1 FREE T4 REFLEXIVE [id number] NOT APPLICABLE 0.9-1.7 Final [facility] [address] [facility] [address]
--- OUTSIDE RECORDS SUMMARY | 2022-12-12 21:54 | External Medical Summary ---
Author Name Unknown Organization K09:[facility] [address] [place] [address] Laboratory Report Ordering Provider Test Date Status KELLY AYON 08/06/2014 09:41:00-0400 Final Obs # Observation Date Value ABNL Reference Status Pe rforming Location 1 Phosphate 08/06/2014 12:04-0400 3.9 2.5-4.8 mg/dL Final
--- OUTSIDE RECORDS SUMMARY | 2022-12-12 21:54 | External Medical Summary ---
Author Name GABO CEE Organization K0G:[facility] [address], [place] [address] Support Name Relationship Address Phone GABO CEE, KELLY PROV Unknown Unavailabl e Laboratory Report Ordering Provider Test Date Status KELLY AYON DO 09/20/2011 08:56:00-0400 Final Obs # Observation Date Value ABNL Reference Status Pe rforming Location 1 hours fasting 09/20/2011 08:57-0400 12 hours Final 2 Triglyceride 09/20/2011 14:06-0400 118 <200 mg/dL Final TRIGLYCERIDE REFERENCE RANGES (mg/dL) <150 NORMAL 150-199 BORDERLINE HIGH 200-499 HIGH >499 VERY HIGH TOTAL CHOLESTEROL REFERENCE RANGES(mg/dL) <200 DESIRABLE 200-239 BORDERLINE HIGH >239 HIGH HDL CHOLESTEROL REFERENCE RANGES(mg/dL) <40 LOW >59 HIGH LDL CHOLESTEROL REFERENCE RANGES(mg/dL) <100 OPTIMAL GOAL FOR HIGH RISK PATIENTS 100-129 NEAR OR ABOVE NORMAL 130-159 BORDERLINE HIGH 160-189 HIGH >189 VERY HIGH
--- OUTSIDE RECORDS SUMMARY | 2022-12-12 21:54 | External Medical Summary ---
Author Name Unknown Organization [place]09[place] [place] [address] [place] [address] Laboratory Report Ordering Provider Test Date Status KELLY AYON DO 08/06/2014 09:41:00-0400 Final Obs # Observation Date Value ABNL Reference Status Pe rforming Location 1 BUN 08/06/2014 12:04-0400 19 6-20 mg/dL Final 2 Creatinine 08/06/2014 12:04-0400 1.0 0.5-1.2 mg/dL Final GFR should be used to assess renal function. Plasma/Serum creatinine may not be able to properly reflect renal function in some cases. If patient is , multiply estimated GFR by 1.159.
--- OUTSIDE RECORDS SUMMARY | 2022-12-12 21:54 | External Medical Summary ---
Author Name Unknown Address [address] [place] [address] Phone Organization K01:[place] [id number] Laboratory Report Ordering Provider Test Date Status MITULMANISH 11/14/2016 08:45:00 Final Observation Date Value Abnormality Reference Status BUN 11/14/2016 15:00 18 6-20 Fin al Creatinine 11/14/2016 15:00 1.0 0.5-1.0 Fi nal Performing Location [address] [address]
--- OUTSIDE RECORDS SUMMARY | 2022-12-12 21:54 | External Medical Summary ---
Author Name Unknown Address [address] [id number] Phone Organization K01[facility] [address] [facility] [address] Laboratory Report Ordering Provider Test Date Status MANISH BAUMAN DO 03/31/2016 13:41:00 Final Obs # Observation Date Value Abnormality Reference Status Performing Location 0 Phosphate 03/31/2016 22:58 3.5 2.5-4.8 Final [facility] [address] [facility] [address]
--- OUTSIDE RECORDS SUMMARY | 2022-12-12 21:55 | External Medical Summary ---
Author Name ANTHONY CEE Organization K01:[facility], [address] [address] Support Name Relationship Address Phone SIRI CRUZ DO Unknown Unavailable Laboratory Report Ordering Provider Test Date Status SIRI CRUZ DO 05/04/2011 16:11:00-0500 Final Obs # Observation Date Value ABNL Reference Status Pe rforming Location 1 T3, Free 05/04/2011 22:23-0500 2.4 L 2.6-4.4 pg/mL Final
--- OUTSIDE RECORDS SUMMARY | 2022-12-12 21:55 | External Medical Summary ---
Author Name RIVAS CEE Organization K03:[facility], [address] [place] [address] Support Name Relationship Address Phone RIVAS CEE, [facility] Unknown Unavail able Laboratory Report Ordering Provider Test Date Status ELLE HATHAWAY DO 04/05/2011 09:24:00-0500 Fin al Obs # Observation Date Value ABNL Reference Status Pe rforming Location 1 Acetylcholine receptor binding Ab 2 17:34-050 0 <0.30 nmol/L <=0.30 nmol/L Final (NOTE) Reference Range: Negative: <=0.30 nmol/L Equivocal: 0.31-0.49 nmol/L Positive: >=0.50 nmol/L
--- OUTSIDE RECORDS SUMMARY | 2022-12-12 21:55 | External Medical Summary ---
Author Name GABO [facility] K01[facility], [address] [address] Support Name Relationship Address Phone KELLY AYON DO PROV Unknown Unavailabl e Laboratory Report Ordering Provider Test Date Status KELLY AYON 09/20/2011 08:56:00-0400 Final Obs # Observation Date Value ABNL Reference Status Pe rforming Location 1 25OH VITAMIN D TOTAL 09/22/2011 14:43-0400 64.9 30.0-100.0 ng/mL Final Deficient: <20.0 ng/mL Insufficient: 20.0-29.9 ng/ml Sufficient: 30.0-100.0 ng/ml High: >100.0 ng/ml Refer to [facility] Osteoporosis for Practitioners Best Practice Guidelines for therapeutic recommendations.
--- OUTSIDE RECORDS SUMMARY | 2022-12-12 21:55 | External Medical Summary ---
Author Name Unknown Organization K01:[facility], [address] [address] Support Name Relationship Address Phone KELLY AYON DO PROV Unknown Unavailab le Laboratory Report Ordering Provider Test Date Status KELLY AYON DO 06/24/2010 08:39-0400 Final Obs # Observation Date Value ABNL Reference Status Pe rforming Location 1 TSH 06/24/2010 14:12-0400 3.07 0.27-4.2 uIU/mL Final
--- OUTSIDE RECORDS SUMMARY | 2022-12-12 21:55 | External Medical Summary ---
Author Name CRUZ Organization K01:[facility], [address] [address] Support Name Relationship Address Phone SIRI CRUZ DO Unknown Unavailable Laboratory Report Ordering Provider Test Date Status SIRI ANTHONY CEE 05/04/2011 16:11:00-0500 Final Obs # Observation Date Value ABNL Reference Status Pe rforming Location 1 T4, Free 05/04/2011 22:23-0500 1.12 0.7-1.7 ng/dL Final
--- OUTSIDE RECORDS SUMMARY | 2022-12-12 21:55 | External Medical Summary ---
Author Name Unknown Organization K09:[facility], [address], [place] [address] Support Name Relationship Address Phone KELLY AYON DO PROV Unknown Unavailab le Laboratory Report Ordering Provider Test Date Status KELLY AYON DO 06/24/2010 08:39-0400 Final Obs # Observation Date Value ABNL Reference Status Pe rforming Location 1 BUN 06/24/2010 15:0400 16 6-20 mg/dL Final 2 Creatinine 06/24/2010 15:0400 1.0 0.7-1.5 mg/dL Final 3 Sodium 06/24/2010 15:0400 137 135-146 mmol/L Final 4 Potassium 06/24/2010 15:0400 4.4 3.5-5.1 mmol/L Final 5 Cl 06/24/2010 15:0400 99 98-111 mmol/L Final 6 CO2 06/24/2010 15:0400 26 22-32 mmol/L Final 7 Glucose 06/24/2010 15:0400 106 70-120 mg/dL Final 8 Albumin, Serum 06/24/2010 15:0400 4.4 3.8-5.0 g/dL Final 9 AST (Aspartate aminotransferase) 06/24/2010 15:0400 25 10-35 U/L Final 10 Alk Phos 06/24/2010 15:0400 113 25-125 U/L Final 11 Bilirubin, Total 06/24/2010 15:-0400 0.5 0.3-1.3 mg/dL Final 12 Calcium 06/24/2010 15:0400 9.4 8.3-10.5 mg/dL Final 13 Protein 06/24/2010 15:0400 6.6 6.0-8.3 g/dL Final 14 ALT (Alanine aminotransferase) 06/24/2010 15:0400 27 10-35 U/L Final 15 Anion gap 06/24/2010 15:0400 12 7-15 mmol/L Final 16 GFR / 1.73 sq M.predicted 06/24/2010 15:19-0400 55.1 L >60 mL/min Final
--- OUTSIDE RECORDS SUMMARY | 2022-12-12 21:55 | External Medical Summary ---
Author Name GABO CEE Organization K01:[facility], [facility] [address] [address] Support Name Relationship Address Phone GABO CEEKELLY PROV Unknown Unavailabl e Laboratory Report Ordering Provider Test Date Status KELLY AYON DO 09/20/2011 08:56:00-0400 Final Obs # Observation Date Value ABNL Reference Status Pe rforming Location 1 TSH 09/20/2011 21:06-0400 1.78 0.27-4.2 uIU/mL Final
--- OUTSIDE RECORDS SUMMARY | 2022-12-12 21:55 | External Medical Summary ---
Author Name Unknown Organization K09:[facility], [address] , [place] [address] Support Name Relationship Address Phone KELLY AYON DO PROV Unknown Unavailab le Laboratory Report Ordering Provider Test Date Status KELLY AYON DO 06/24/2010 08:39-0400 Final Obs # Observation Date Value ABNL Reference Status Pe rforming Location 1 WBC 06/24/2010 11:0 5.54 4.00-10.80 K/uL Final 2 RBC 06/24/2010 11: 4.61 3.85-5.15 M/uL Final 3 HGB 06/24/2010 11:0 13.8 12.0-14.5 g/dL Final 4 HCT 06/24/2010 11: 40.5 36.0-44.5 % Final 5 MCV 06/24/2010 11: 87.9 81.5-97.5 fL Final 6 MCH 06/24/2010 11: 29.9 27.0-34.0 pg Final 7 MCHC 06/24/2010 11: 34.1 32.0-36.0 g/dL Final 8 RDW 06/24/2010 11:0 12.1 11.5-15.5 % Final 9 PLT 06/24/2010 11:0 271 140-400 K/uL Final 10 MPV 06/24/2010 11: 10.2 6.6-11.1 fL Final
--- OUTSIDE RECORDS SUMMARY | 2022-12-12 21:55 | External Medical Summary ---
Author Name Unknown Organization K01:[facility], [address] [address] Support Name Relationship Address Phone KELLY AYON DO PROV Unknown Unavailab le Laboratory Report Ordering Provider Test Date Status KELLY AYON DO Jayson 06/24/2010 08:39-0400 Final Obs # Observation Date Value ABNL Reference Status Pe rforming Location 1 25-OH Vitamin D total (Calcidiol + Calciferol) 06/26/19 11 13:50-04 00 64.5 30.0-100.0 ng/mL Final 2 25-OH Vitamin D total (Calcidiol + Calciferol) 06/26/19 11 13:50-04 00 Final 3 25-OH Vitamin D total (Calcidiol + Calciferol) 06/26/19 11 13:50-04 00 Deficient: <20.0 ng/mL Final 4 25-OH Vitamin D total (Calcidiol + Calciferol) 06/26/19 11 13:50-04 00 Insufficient: 20.0-29.9 ng/ml Final 5 25-OH Vitamin D total (Calcidiol + Calciferol) 06/26/19 11 13:50-04 00 Sufficient: 30.0-100.0 ng/ml Final 6 25-OH Vitamin D total (Calcidiol + Calciferol) 06/26/19 11 13:50-04 00 High: >100.0 ng/ml Final 7 25-OH Vitamin D total (Calcidiol + Calciferol) 06/26/19 11 13:50-04 00 Final 8 25-OH Vitamin D total (Calcidiol + Calciferol) 06/26/19 11 13:50-04 00 Refer to [facility] Final 9 25-OH Vitamin D total (Calcidiol + Calciferol) 06/26/19 11 13:50-04 00 for Practitioners Best Practice Final 10 25-OH Vitamin D total (Calcidiol + Calciferol) 06/26/19 11 13:50-04 00 Guidelines for therapeutic Final 11 25-OH Vitamin D total (Calcidiol + Calciferol) 06/26/19 11 13:50-04 00 recommendations. Final
--- OUTSIDE RECORDS SUMMARY | 2022-12-12 21:55 | External Medical Summary ---
Author Name GABO CEE Organization K01:[facility], [address] [address] Support Name Relationship Address Phone GABO CEEKELLY PROV Unknown Unavailabl e Laboratory Report Ordering Provider Test Date Status KELLY AYON DO 09/20/2011 08:56:00-0400 Final Obs # Observation Date Value ABNL Reference Status Pe rforming Location 1 T3, Free 09/20/2011 21:06-0400 2.3 L 2.6-4.4 pg/mL Final
--- OUTSIDE RECORDS SUMMARY | 2022-12-12 21:55 | External Medical Summary ---
Author Name Unknown Organization K0G:[facility] [address], [address] [place] [address] Support Name Relationship Address Phone KELLY AYON DO PROV Unknown Unavailab le Laboratory Report Ordering Provider Test Date Status KELLY AYON DO 06/24/2010 08:39-0400 Final Obs # Observation Date Value ABNL Reference Status Pe rforming Location 1 HOURS FASTING 06/25/19 11 08:40-04 00 12 hours Final 2 Triglyceride 06/25/19 11 13:34-04 00 149 60-245 mg/dL Final 3 Cholesterol 06/25/19 11 13:34-04 00 186 <200 mg/dL Final 4 HDL 06/25/19 11 13:34-04 00 58 40-59 mg/dL Final 5 Cholesterol / HDL ratio 06/25/19 11 13:34-04 00 3.2 Final 6 LDL (calculated) 06/25/19 11 13:34-04 00 98 0-129 mg/dL Final 7 LDL (calculated) 06/25/19 11 13:34-04 00 Final 8 LDL (calculated) 06/25/19 11 13:34-04 00 LIPID PANEL REFERENCE RANGES (mg/dL) Final 9 LDL (calculated) 06/25/19 11 13:34-04 00 Final 10 LDL (calculated) 06/25/19 11 13:34-04 00 LDL CHOLESTEROL Final 11 LDL (calculated) 06/25/19 11 13:34-04 00 <100 OPTIMAL GOAL FOR HIGH RISK PATIENTS Final 12 LDL (calculated) 06/25/19 11 13:34-04 00 100-129 NEAR OR ABOVE NORMAL Final 13 LDL (calculated) 06/25/19 11 13:34-04 00 130-159 BORDERLINE HIGH Final 14 LDL (calculated) 06/25/19 11 13:34-04 00 160-189 HIGH Final 15 LDL (calculated) 06/25/19 11 13:34-04 00 >189 VERY HIGH Final 16 LDL (calculated) 06/25/19 11 13:34-04 00 Final 17 LDL (calculated) 06/25/19 11 13:34-04 00 TOTAL CHOLESTEROL Final 18 LDL (calculated) 06/25/19 11 13:34-04 00 <200 DESIRABLE Final 19 LDL (calculated) 06/25/19 11 13:34-04 00 200-239 BORDERLINE HIGH Final 20 LDL (calculated) 06/25/19 11 13:34-04 00 >239 HIGH Final 21 LDL (calculated) 06/25/19 11 13:34-04 00 Final 22 LDL (calculated) 06/25/19 11 13:34-04 00 HDL [id number] Final 23 LDL (calculated) 06/25/19 11 13:34-04 00 <40 LOW Final 24 LDL (calculated) 06/25/19 11 13:34-04 00 40-59 NORMAL Final 25 LDL (calculated) 06/25/19 11 13:34-04 00 >59 HIGH Final
--- OUTSIDE RECORDS SUMMARY | 2022-12-12 21:55 | External Medical Summary ---
Author Name GABO CEE Organization K09:[facility] [place] [facility], [address] [place] [address] Support Name Relationship Address Phone KELLY AYON DO PROV Unknown Unavailabl e Laboratory Report Ordering Provider Test Date Status KELLY AYON DO 09/20/2011 08:56:00-0400 Final Obs # Observation Date Value ABNL Reference Status Pe rforming Location 1 WBC 09/20/2011 10:51-0400 6.16 4.00-10.80 K/uL Final 2 RBC 09/20/2011 10:51-0400 4.68 3.85-5.15 M/uL Final 3 HGB 09/20/2011 10:51-0400 14.0 12.0-14.5 g/dL Final 4 HCT 09/20/2011 10:51-0400 41.3 36.0-44.5 % Final 5 MCV 09/20/2011 10:51-0400 88.2 81.5-97.5 fL Final 6 MCH 09/20/2011 10:51-0400 29.9 27.0-34.0 pg Final 7 MCHC 09/20/2011 10:51-0400 33.9 32.0-36.0 g/dL Final 8 RDW 09/20/2011 10:51-0400 11.8 11.5-15.5 % Final 9 PLT 09/20/2011 10:51-0 240 140-400 K/uL Final 10 MPV 09/20/2011 10:510400 10.2 6.6-11.1 fL Final
[2022-12-13 06:19] LABS: Hematocrit (blood only) 32.1 % (37.0-47.0); Hemoglobin 10.5 g/dl (12.0-16.0); Mean Corpuscular Hemoglobin 27.8 pg (25.0-34.0); Mean Corpuscular Hgb Conc 32.7 g/dL (32.0-36.0); Mean Corpuscular Volume 84.9 fL (80.0-100.0); Mean Platelet Volume 10.1 fL (9.4-12.4); Platelet Count 385 K/uL (130-400); RDW Coefficient of Variation 13.9 % (11.5-14.5); RDW Standard Deviation 43.2 fL (36.4-46.3); Red Blood Count 3.78 M/uL (4.20-5.40); White Blood Count 7.06 K/ul (4.8-10.8)
[2022-12-13 06:51] LABS: BUN Creatinine Ratio 20.7 (10-20); Calcium 9.9 mg/dl (8.6-10.3); Creatinine Clr Calc Pharmacy 49.2 ml/min; Est GFR (African American) 78.3 ml/min; Est GFR (Non-African American) 67.6 ml/min; Potassium 4.1 mmol/L (3.5-5.1)
--- NOTE | 2022-12-13 07:34 | Hospitalist Progress Note ---
Date of Service December 13, 2022 Assessment & Plan (1) Falls: Plan: Pt is an 82 yo female with a PMH of chronic R hip pain, ambulatory dysfunction, PTSD/anxiety, osteoporosis, DJD, HTN, hypothyroidism, and IBS presented to the ED via EMS as patient was found yelling under her dining room table admitted for further workup and PT/OT evaluation. Recurrent falls - pt found under her dining room table with minimal memory of the afternoon - CT head neg, CK elevated at 752 - s/p fluid resuscitation with 1L NSS followed by LR at 125 mL/hr x3 bags - falls possibly secondary to polypharmacy of sedating meds/deconditioning due to chronic pain - PT recommending rehab Metabolic encephalopathy- resolved - pt on multiple sedating meds including tizanidine, paroxetine, gabapentin, and diazepam - increased gabapentin to 200mg TID 12/11 Hypertensive urgency - BP overall improved - currently on home losartan 100 mg daily - this hospitalization, started metoprolol 25 mg BID d/t atrial tachycardia Asymptomatic COVID-19 - recent COVID + status, no documented date of positive test; positive on admission - continue isolation precautions; end date 12/18 - no indication for steroids or antivirals at this time Demand ischemia - EKG without any acute ST elevation or depression - trop peaked - suspect in the setting of HTN Osteoarthritis - R hip XR without change from previous- showing severe osteoarthritis - hx of SI joint injections in the past - continue home gabapentin, duloxetine, and lidocaine patch PTSD - continue home duloxetine, paroxetine, and gabapentin IBS - continue home miralax Diet: regular, gluten free, lactose free DVT ppx: SCD, lovenox 40mg q24h Code: DNR/DNI Dispo: pending rehab placement (will not be able to go until end of COVID quarantine 12/18) (2) COVID-19: (3) Hypertension: (4) Urinary incontinence: (5) Elevated troponin: (6) Ambulatory dysfunction: (7) Osteoarthritis: (8) Irritable bowel syndrome (IBS): (9) Post traumatic stress disorder: Admission and Anticipated Discharge Date Admission Date: December 08, 2022 Supervising Physician Co-Signing Physician Notes I personally examined the patient and verified all gilliam points of history and exam, discussed case, and agree with decision making with Dr Heredia no new complaints today, about to work with therapy when i see her. Vitals noted, in general she is awake and alert pleasant no distress. HEENT normocephalic atraumatic mucous membranes moist. Breathing unlabored no accessory muscle use good effort. Skin shows no rashes no pallor or icterus. WeaknessPT/OT, ongoing outpatient orthopedics follow-up, agree that SNF/rehab emphasis would be a good disposition for at this time. Otherwise as above. medically stable DVT proph - lovenox Subjective Pt doing well this AM. States she is just waiting to hear about rehab. No new complaints. Review of Systems Review of Systems: As per HPI Physical Exam Physical Exam: Constitutional: well appearing, no acute distress HEENT: normocephalic, no conjunctival injection CV: regular rhythm, regular rate, no murmur, no LE edema Respiratory: Clear to auscultation bilaterally. No rhonchi, wheezes, or crackles. No increased work of breathing MSK: no gross deformities noted Skin: warm, dry, no rashes Neuro: alert, oriented, no FND noted Results & Data Results & Data Vital Signs (Past 12 Hours) Vital Signs Temp Pulse Pulse Resp BP Pulse Ox O2 Del Method 12/13/22 07:25 90 12/12/22 23:00 36.4 C L 70 16 114/70 96 Room Air 12/12/22 23:47 66 Resident Activity Tracking Resident Involvement: Resident Care Provided Care Provided: Adult Hospital Medicine (1) Falls Encounter type: initial encounter Qualified Code(s): W19.XXXA - Unspecified fall, initial encounter (3) Hypertension Hypertension type: unspecified Qualified Code(s): I10 - Essential (primary) hypertension
[2022-12-13] MEDS: PARoxetine HCL 20 MG TAB PO SCH (09:00)
[2022-12-13] MEDS: DULoxetine HCL 30 MG CAP PO SCH ×2 (09:00→20:29)
[2022-12-13] MEDS: CALCIUM CARBONATE 1250MG TAB PO SCH (09:07)
[2022-12-13] MEDS: GABAPENTIN 100 MG CAP PO SCH ×3 (09:07→20:29)
[2022-12-13] MEDS: METOPROLOL TARTRATE 25 MG TAB PO SCH (09:07)
[2022-12-13] MEDS: CHOLECALCIFEROL 1,000 UNITS 25 MCG TAB PO SCH (09:07)
[2022-12-13] MEDS: LOSARTAN POTASSIUM 50 MG TAB PO SCH (09:07)
[2022-12-13] MEDS: POLYETHYLENE (MIRALAX) 17 GM PACK PO SCH ×2 (09:11→20:31)
[2022-12-13] MEDS: ACETAMINOPHEN 325 MG TAB PO PRN ×2 (10:17→20:31)
--- NOTE | 2022-12-13 12:54 | Billing Data ---
Date of Service December 13, 2022 Coding Level of Care Code 22317 SUB INP/OBS CARE
[2022-12-13] MEDS: ENOXAPARIN INJ 40 MG/0.4 ML SYR SQ SCH (20:30)
--- NOTE | 2022-12-14 07:15 | Hospitalist Progress Note ---
Date of Service December 14, 2022 Assessment & Plan (1) Falls: Plan: Pt is an 82 yo female with a PMH of chronic R hip pain, ambulatory dysfunction, PTSD/anxiety, osteoporosis, DJD, HTN, hypothyroidism, and IBS presented to the ED via EMS as patient was found yelling under her dining room table admitted for further workup and PT/OT evaluation. Pt continuing to work with PT/OT and they are still recommending rehab. Recurrent falls - pt found under her dining room table with minimal memory of the afternoon - CT head neg, CK elevated at 752 - s/p fluid resuscitation with 1L NSS followed by LR at 125 mL/hr x3 bags - falls possibly secondary to polypharmacy of sedating meds/deconditioning due to chronic pain - PT recommending rehab Metabolic encephalopathy- resolved - pt on multiple sedating meds including tizanidine, paroxetine, gabapentin, and diazepam - continue gabapentin to 200mg TID 12/11 Hypertensive urgency - BP overall improved - currently on home losartan 100 mg daily - this hospitalization, started metoprolol 25 mg BID d/t atrial tachycardia- plan to continue upon discharge Asymptomatic COVID-19 - recent COVID + status, no documented date of positive test; positive on admission - continue isolation precautions; end date 12/18 - no indication for steroids or antivirals at this time Demand ischemia - EKG without any acute ST elevation or depression - trop peaked - suspect in the setting of HTN Osteoarthritis - R hip XR without change from previous- showing severe osteoarthritis - hx of SI joint injections in the past - continue home gabapentin, duloxetine, and lidocaine patch PTSD - continue home duloxetine, paroxetine, and gabapentin IBS - continue home miralax Diet: regular, gluten free, lactose free DVT ppx: lovenox Code: DNR/DNI Dispo: pending rehab placement (will not be able to go until end of COVID quarantine 12/18) (2) COVID-19: (3) Hypertension: (4) Urinary incontinence: (5) Elevated troponin: (6) Ambulatory dysfunction: (7) Osteoarthritis: (8) Irritable bowel syndrome (IBS): (9) Post traumatic stress disorder: Admission and Anticipated Discharge Date Admission Date: December 08, 2022 Supervising Physician Co-Signing Physician Notes I personally examined the patient and verified all gilliam points of history and exam, discussed case, and agree with decision making with Dr Heredia no new issues. Vitals noted, in general she is awake and alert pleasant no distress. HEENT normocephalic atraumatic mucous membranes moist. Breathing unlabored no accessory muscle use good effort. Skin shows no rashes no pallor or icterus. WeaknessPT/OT, ongoing outpatient orthopedics follow-up, agree that SNF/rehab emphasis would be a good disposition for at this time. Otherwise as above. medically stable, Awaiting insurance approval/bed availabilitycomplicated by COVID test on 12/08 DVT proph - lovenox Subjective Pt feeling the same today. No new concerns. She is unsure what rehab will do for her as "it hasn't helped in the past 2 mths." She believes that Dr. Hopkins is planning to fix her hip next month. Review of Systems Review of Systems: As per HPI Physical Exam Physical Exam: Constitutional: well appearing, no acute distress HEENT: normocephalic, no conjunctival injection CV: regular rhythm, regular rate, no murmur, no LE edema Respiratory: Clear to auscultation bilaterally. No rhonchi, wheezes, or c rackles. No increased work of breathing MSK: no gross deformities noted Skin: warm, dry, no rashes Neuro: alert, oriented, no FND noted Results & Data Results & Data Vital Signs (Past 12 Hours) Vital Signs Temp Pulse Resp BP BP Pulse Ox Pulse Ox 12/14/22 06:59 37.0 C 83 16 154/64 H 98 12/13/22 23:30 12/13/22 23:30 98 12/13/22 23:48 37 C 75 16 123/66 98 O2 Del Method O2 Del Method 12/14/22 06:59 Room Air 12/13/22 23:30 Room Air 12/13/22 23:30 Room Air 12/13/22 23:48 Room Air Resident Activity Tracking Resident Involvement: Resident Care Provided Care Provided: Adult Hospital Medicine (1) Falls Encounter type: initial encounter Qualified Code(s): W19.XXXA - Unspecified fall, initial encounter (3) Hypertension Hypertension type: unspecified Qualified Code(s): I10 - Essential (primary) hypertension
[2022-12-14] MEDS: PARoxetine HCL 20 MG TAB PO SCH (08:28)
[2022-12-14] MEDS: METOPROLOL TARTRATE 25 MG TAB PO SCH (08:28)
[2022-12-14] MEDS: LOSARTAN POTASSIUM 50 MG TAB PO SCH (08:29)
[2022-12-14] MEDS: CHOLECALCIFEROL 1,000 UNITS 25 MCG TAB PO SCH (08:29)
[2022-12-14] MEDS: GABAPENTIN 100 MG CAP PO SCH ×3 (08:30→21:36)
[2022-12-14] MEDS: POLYETHYLENE (MIRALAX) 17 GM PACK PO SCH ×2 (08:30→21:36)
[2022-12-14] MEDS: CALCIUM CARBONATE 1250MG TAB PO SCH (08:30)
[2022-12-14] MEDS: DULoxetine HCL 30 MG CAP PO SCH ×2 (12:17→21:37)
[2022-12-14] MEDS: ACETAMINOPHEN 325 MG TAB PO PRN ×2 (15:33→21:34)
--- NOTE | 2022-12-14 18:35 | Billing Data ---
Date of Service December 14, 2022 Coding Level of Care Code 93572 SUB INP/OBS CARE
[2022-12-14] MEDS: ENOXAPARIN INJ 40 MG/0.4 ML SYR SQ SCH (21:36)
--- NOTE | 2022-12-15 07:10 | Hospitalist Progress Note ---
Date of Service December 15, 2022 Assessment & Plan (1) Falls: Plan: Pt is an 82 yo female with a PMH of chronic R hip pain, ambulatory dysfunction, PTSD/anxiety, osteoporosis, DJD, HTN, hypothyroidism, and IBS presented to the ED via EMS as patient was found yelling under her dining room table admitted for further workup and PT/OT evaluation. Pt continuing to work with PT/OT and they are still recommending rehab. Urinary incontinence/frequency - unsure if this is a chronic issue or acute; does not seem to be hx of this - pt unable to give further hx this AM- will attempt to talk with her more concerning her symptoms - may consider changing losartan to different BP medication - will check UA/urine cx to r/o infection Recurrent falls - pt found under her dining room table with minimal memory of the afternoon - CT head neg, CK elevated at 752 - s/p fluid resuscitation with 1L NSS followed by LR at 125 mL/hr x3 bags - falls possibly secondary to polypharmacy of sedating meds/deconditioning due to chronic pain - PT recommending rehab Metabolic encephalopathy- resolved - pt on multiple sedating meds including tizanidine, paroxetine, gabapentin, and diazepam - continue gabapentin to 200mg TID 12/11 Hypertensive urgency - BP overall improved - currently on home losartan 100 mg daily - this hospitalization, started metoprolol 25 mg BID d/t atrial tachycardia- plan to continue upon discharge Asymptomatic COVID-19 - recent COVID + status, no documented date of positive test; positive on admission - continue isolation precautions; end date 12/18 - no indication for steroids or antivirals at this time Demand ischemia - EKG without any acute ST elevation or depression - trop peaked - suspect in the setting of HTN Osteoarthritis - R hip XR without change from previous- showing severe osteoarthritis - hx of SI joint injections in the past - continue home gabapentin, duloxetine, and lidocaine patch PTSD - continue home duloxetine, paroxetine, and gabapentin IBS - continue home miralax Diet: regular, gluten free, lactose free DVT ppx: lovenox Code: DNR/DNI Dispo: pending rehab placement (will not be able to go until end of COVID quarantine 12/18) (2) COVID-19: (3) Hypertension: (4) Urinary incontinence: (5) Elevated troponin: (6) Ambulatory dysfunction: (7) Osteoarthritis: (8) Irritable bowel syndrome (IBS): (9) Post traumatic stress disorder: (10) Urinary frequency: Admission and Anticipated Discharge Date Admission Date: December 08, 2022 Supervising Physician Co-Signing Physician Notes I personally examined the patient and verified all gilliam points of history and exam, discussed case, and agree with decision making with Dr Heredia no new issues noted. sleeping comfortably at the time i see her. Vitals noted, sleeping comfortably and appears in no distress. HEENT normocephalic atraumatic mucous membranes moist. Breathing unlabored no accessory muscle use good effort. Skin shows no rashes no pallor or icterus. WeaknessPT/OT, ongoing outpatient orthopedics follow-up, agree that SNF/rehab emphasis would be a good disposition for at this time. Otherwise as above. medically stable, Awaiting insurance approval/bed availabilitycomplicated by COVID test on 12/08. no new issues today DVT proph - lovenox Subjective Pt awoken from sleep this AM by my visit. She was originally groggy but perked up after talking for a bit. She was helped up to the bedside to eat breakfast. She does endorse urinary frequency/incontinence as she stated she had to urinate 4-5 times overnight. She has not had to wear depends prior but now feels that she needs to. Review of Systems Review of Systems: As per HPI Physical Exam Physical Exam: Constitutional: well appearing, no acute distress HEENT: normocephalic, no conjunctival injection CV: clinically well perfused Respiratory: no increased work of breathing MSK: no gross deformities noted; poor ROM of bilateral LE Skin: warm, dry, no rashes Neuro: alert, oriented, no FND noted Results & Data Results & Data Vital Signs (Past 12 Hours) Vital Signs Temp Pulse Resp BP Pulse Ox Pulse Ox O2 Del Method 12/14/22 22:15 36.8 C 66 14 133/70 96 Room Air 12/14/22 21:34 Room Air 12/14/22 21:34 94 O2 Del Method 12/14/22 22:15 12/14/22 21:34 12/14/22 21:34 Room Air Resident Activity Tracking Resident Involvement: Resident Care Provided Care Provided: Adult Hospital Medicine (1) Falls Encounter type: initial encounter Qualified Code(s): W19.XXXA - Unspecified fall, initial encounter (3) Hypertension Hypertension type: unspecified Qualified Code(s): I10 - Essential (primary) hypertension
[2022-12-15] MEDS: DULoxetine HCL 30 MG CAP PO SCH ×2 (08:24→21:08)
[2022-12-15] MEDS: LOSARTAN POTASSIUM 50 MG TAB PO SCH (08:24)
[2022-12-15] MEDS: CALCIUM CARBONATE 1250MG TAB PO SCH (08:24)
[2022-12-15] MEDS: GABAPENTIN 100 MG CAP PO SCH ×3 (08:25→21:01)
[2022-12-15] MEDS: CHOLECALCIFEROL 1,000 UNITS 25 MCG TAB PO SCH (08:25)
[2022-12-15] MEDS: PARoxetine HCL 20 MG TAB PO SCH (08:25)
[2022-12-15] MEDS: METOPROLOL TARTRATE 25 MG TAB PO SCH (08:25)
[2022-12-15] MEDS: POLYETHYLENE (MIRALAX) 17 GM PACK PO SCH ×2 (10:39→21:00)
--- NOTE | 2022-12-15 16:51 | Billing Data ---
Date of Service December 15, 2022 Coding Level of Care Code 76773 SUB INP/OBS CARE
[2022-12-15 17:50] LABS: Appearance Urine Clear (Clear); Bilirubin Urine Negative (Negative); Blood Urine Negative (Negative); Color Urine Yellow; Glucose Urine UA Negative (Negative); Ketones Urine Negative (Negative); Leukocyte Esterase Urine Negative (Negative); Nitrite Urine Negative (Negative); Protein Urine Negative (Negative); Specific Gravity Urine 1.009 (1.000-1.030); Urobilinogen Urine Negative (Negative)
[2022-12-15] MEDS: ACETAMINOPHEN 325 MG TAB PO PRN (21:07)
[2022-12-15] MEDS: diazePAM 5 MG TABLET PO PRN (21:08)
[2022-12-15] MEDS: ENOXAPARIN INJ 40 MG/0.4 ML SYR SQ SCH (21:09)
--- NOTE | 2022-12-16 06:56 | Hospitalist Progress Note ---
Date of Service December 16, 2022 Assessment & Plan (1) Falls: Plan: Pt is an 82 yo female with a PMH of chronic R hip pain, ambulatory dysfunction, PTSD/anxiety, osteoporosis, DJD, HTN, hypothyroidism, and IBS presented to the ED via EMS as patient was found yelling under her dining room table admitted for further workup and PT/OT evaluation. Pt continuing to work with PT/OT and they are still recommending rehab. Urinary incontinence/frequency - unsure if this is a chronic issue or acute; does not seem to be hx of this; pt mentions that she believes a medication may be causing this - UA neg for infection - will continue to monitor Recurrent falls - pt found under her dining room table with minimal memory of the afternoon - CT head neg, CK elevated at 752 - s/p fluid resuscitation with 1L NSS followed by LR at 125 mL/hr x3 bags - falls possibly secondary to polypharmacy of sedating meds/deconditioning due to chronic pain - PT recommending rehab; plan for discharge Tuesday 12/19 Metabolic encephalopathy- resolved - pt on multiple sedating meds including tizanidine, paroxetine, gabapentin, and diazepam - continue gabapentin to 200mg TID 12/11 Hypertensive urgency - BP overall improved - currently on home losartan 100 mg daily - this hospitalization, started metoprolol 25 mg BID d/t atrial tachycardia- plan to continue upon discharge Asymptomatic COVID-19 - recent COVID + status, no documented date of positive test; positive on admission - continue isolation precautions; end date 12/18 - no indication for steroids or antivirals at this time Demand ischemia - EKG without any acute ST elevation or depression - trop peaked - suspect in the setting of HTN Osteoarthritis - R hip XR without change from previous- showing severe osteoarthritis - hx of SI joint injections in the past - continue home gabapentin, duloxetine, and lidocaine patch PTSD - continue home duloxetine, paroxetine, and gabapentin IBS - continue home miralax Diet: regular, gluten free, lactose free DVT ppx: lovenox Code: DNR/DNI Dispo: pending rehab placement (facilities can accept Tuesday 12/19) (2) COVID-19: (3) Hypertension: (4) Urinary incontinence: (5) Elevated troponin: (6) Ambulatory dysfunction: (7) Osteoarthritis: (8) Irritable bowel syndrome (IBS): (9) Post traumatic stress disorder: (10) Urinary frequency: Admission and Anticipated Discharge Date Admission Date: December 08, 2022 Supervising Physician Co-Signing Physician Notes I personally examined the patient and verified all gilliam points of history and exam, discussed case, and agree with decision making with Dr Heredia As I was going in the room, REMA was leaving. As it regards to her urinary incontinence, REMA had gone in to help her change, asked patient about the circumstances of this episode of incontinence, and patient noted that she was on the phone so she just peed herself. Vitals noted, sleeping comfortably and appears in no distress. HEENT normocephalic atraumatic mucous membranes moist. Breathing unlabored no accessory muscle use good effort. Skin shows no rashes no pallor or icterus. WeaknessPT/OT, ongoing outpatient orthopedics follow-up, agree that SNF/rehab emphasis would be a good disposition for at this time. Otherwise as above. medically stable, subacute rehab/SNF monday DVT proph - lovenox Subjective Pt sitting up in bed with breakfast in front of her this AM. She fades in and out of sleep during our conversation. She is asking for a phone number for a [employer]. Her urination is still bothering her but she does not provider much further history. She is relieved that she does not have a UTI. Review of Systems Review of Systems: As per HPI Physical Exam Physical Exam: Constitutional: well appearing, no acute distress HEENT: normocephalic, no conjunctival injection CV: clinically well perfused, no LE edema Respiratory: no increased work of breathing MSK: no gross deformities noted Skin: warm, dry, no rashes Neuro: answers to voice but falls asleep during conversation Results & Data Results & Data Vital Signs (Past 12 Hours) Vital Signs Temp Pulse Resp BP Pulse Ox Pulse Ox O2 Del Method 12/15/22 21:00 99 12/15/22 21:14 36.8 C 78 18 110/75 99 Room Air O2 Del Method 12/15/22 21:00 Room Air 12/15/22 21:14 Resident Activity Tracking Resident Involvement: Resident Care Provided Care Provided: Adult Hospital Medicine (1) Falls Encounter type: initial encounter Qualified Code(s): W19.XXXA - Unspecified fall, initial encounter (3) Hypertension Hypertension type: unspecified Qualified Code(s): I10 - Essential (primary) hypertension
[2022-12-16] MEDS: POLYETHYLENE (MIRALAX) 17 GM PACK PO SCH ×2 (08:22→21:21)
[2022-12-16] MEDS: GABAPENTIN 100 MG CAP PO SCH ×3 (08:22→21:24)
[2022-12-16] MEDS: DULoxetine HCL 30 MG CAP PO SCH ×2 (08:22→21:40)
[2022-12-16] MEDS: LOSARTAN POTASSIUM 50 MG TAB PO SCH (08:23)
[2022-12-16] MEDS: PARoxetine HCL 20 MG TAB PO SCH (08:23)
[2022-12-16] MEDS: CHOLECALCIFEROL 1,000 UNITS 25 MCG TAB PO SCH (08:23)
[2022-12-16] MEDS: CALCIUM CARBONATE 1250MG TAB PO SCH (08:23)
[2022-12-16] MEDS: METOPROLOL TARTRATE 25 MG TAB PO SCH (08:23)
[2022-12-16] MEDS: ACETAMINOPHEN 325 MG TAB PO PRN ×2 (10:45→21:22)
--- NOTE | 2022-12-16 18:39 | Billing Data ---
Date of Service December 16, 2022 Coding Level of Care Code 94539 SUB INP/OBS CARE
[2022-12-16] MEDS: diazePAM 5 MG TABLET PO PRN (21:23)
[2022-12-16] MEDS: ENOXAPARIN INJ 40 MG/0.4 ML SYR SQ SCH (21:40)
--- NOTE | 2022-12-17 07:35 | Hospitalist Progress Note ---
Date of Service December 17, 2022 Assessment & Plan (1) Falls: Plan: Pt is an 82 yo female with a PMH of chronic R hip pain, ambulatory dysfunction, PTSD/anxiety, osteoporosis, DJD, HTN, hypothyroidism, and IBS presented to the ED via EMS as patient was found yelling under her dining room table admitted for further workup and PT/OT evaluation. Pt continuing to work with PT/OT and they are still recommending rehab. Urinary incontinence/frequency - unsure if this is a chronic issue or acute; does not seem to be hx of this; pt mentions that she believes a medication may be causing this - UA neg for infection - per nursing reports/observations, may be due to inability to ambulate w/o support and pt wetting her briefs rather than in the toilet - will continue to monitor Recurrent falls - pt found under her dining room table with minimal memory of the afternoon - CT head neg, CK elevated at 752 - s/p fluid resuscitation with 1L NSS followed by LR at 125 mL/hr x3 bags - falls possibly secondary to polypharmacy of sedating meds/deconditioning due to chronic pain - PT recommending rehab; plan for discharge Tuesday 12/19 Metabolic encephalopathy- resolved - pt on multiple sedating meds including tizanidine, paroxetine, gabapentin, and diazepam - continue gabapentin to 200mg TID 12/11 Hypertensive urgency - BP overall improved - currently on home losartan 100 mg daily - this hospitalization, started metoprolol 25 mg BID d/t atrial tachycardia- plan to continue upon discharge Asymptomatic COVID-19 - recent COVID + status, no documented date of positive test; positive on admission - continue isolation precautions; end date 12/18 - no indication for steroids or antivirals at this time Demand ischemia - EKG without any acute ST elevation or depression - trop peaked - suspect in the setting of HTN Osteoarthritis - R hip XR without change from previous- showing severe osteoarthritis - hx of SI joint injections in the past - continue home gabapentin, duloxetine, and lidocaine patch PTSD - continue home duloxetine, paroxetine, and gabapentin IBS - continue home miralax Diet: regular, gluten free, lactose free DVT ppx: lovenox Code: DNR/DNI Dispo: pending rehab placement ([facility] accept Tuesday 12/19- transport at 9:30AM) (2) COVID-19: (3) Hypertension: (4) Urinary incontinence: (5) Elevated troponin: (6) Ambulatory dysfunction: (7) Osteoarthritis: (8) Irritable bowel syndrome (IBS): (9) Post traumatic stress disorder: (10) Urinary frequency: Admission and Anticipated Discharge Date Admission Date: December 08, 2022 Supervising Physician Co-Signing Physician Notes I personally examined the patient and verified all gilliam points of history and exam, discussed case, and agree with decision making with Dr Heredia no new issues or complaints. Vitals noted, pleasant no distress. HEENT normocephalic atraumatic mucous membranes moist. Breathing unlabored no accessory muscle use good effort. Skin shows no rashes no pallor or icterus. WeaknessPT/OT, ongoing outpatient orthopedics follow-up, agree that SNF/rehab emphasis would be a good disposition for at this time. Otherwise as above. medically stable, subacute rehab/SNF monday, no changes today DVT proph - lovenox Subjective Pt doing well this morning. She is looking forward to discharge Monday to as she has never been there before. No new complaints. She is asking for a shower and to wash her hair. Review of Systems Review of Systems: As per HPI Physical Exam Physical Exam: Constitutional: well appearing, no acute distress HEENT: normocephalic, no conjunctival injection CV: clinically well perfused, no LE edema Respiratory: no increased work of breathing MSK: no gross deformities noted Skin: warm, dry, no rashes Neuro: alert, oriented, no FND noted Results & Data Results & Data Vital Signs (Past 12 Hours) Vital Signs Temp Pulse Resp BP Pulse Ox O2 Del Method 12/17/22 00:02 Room Air 12/16/22 20:58 37 C 68 16 145/67 H 96 Room Air Resident Activity Tracking Resident Involvement: Resident Care Provided Care Provided: Adult Hospital Medicine (1) Falls Encounter type: initial encounter Qualified Code(s): W19.XXXA - Unspecified fall, initial encounter (3) Hypertension Hypertension type: unspecified Qualified Code(s): I10 - Essential (primary) hypertension
[2022-12-17] MEDS: DULoxetine HCL 30 MG CAP PO SCH ×2 (08:39→21:19)
[2022-12-17] MEDS: GABAPENTIN 100 MG CAP PO SCH ×3 (08:40→21:18)
[2022-12-17] MEDS: CHOLECALCIFEROL 1,000 UNITS 25 MCG TAB PO SCH (09:33)
[2022-12-17] MEDS: CALCIUM CARBONATE 1250MG TAB PO SCH (09:33)
[2022-12-17] MEDS: LOSARTAN POTASSIUM 50 MG TAB PO SCH (09:34)
[2022-12-17] MEDS: METOPROLOL TARTRATE 25 MG TAB PO SCH (09:34)
[2022-12-17] MEDS: PARoxetine HCL 20 MG TAB PO SCH (09:34)
[2022-12-17] MEDS: POLYETHYLENE (MIRALAX) 17 GM PACK PO SCH ×2 (09:38→21:18)
--- NOTE | 2022-12-17 19:55 | Billing Data ---
Date of Service December 17, 2022 Coding Level of Care Code 32377 SUB INP/OBS CARE
[2022-12-17] MEDS: diazePAM 5 MG TABLET PO PRN (21:17)
[2022-12-17] MEDS: ACETAMINOPHEN 325 MG TAB PO PRN (21:17)
[2022-12-17] MEDS: ENOXAPARIN INJ 40 MG/0.4 ML SYR SQ SCH (21:18)
--- NOTE | 2022-12-18 07:35 | Hospitalist Progress Note ---
Date of Service December 18, 2022 Assessment & Plan (1) Falls: Plan: Pt is an 82 yo female with a PMH of chronic R hip pain, ambulatory dysfunction, PTSD/anxiety, osteoporosis, DJD, HTN, hypothyroidism, and IBS presented to the ED via EMS as patient was found yelling under her dining room table admitted for further workup and PT/OT evaluation. Pt continuing to work with PT/OT and they are still recommending rehab. Plan for discharge 12/19 to [facility]. Urinary incontinence/frequency - unsure if this is a chronic issue or acute; does not seem to be hx of this; pt mentions that she believes a medication may be causing this - UA neg for infection - per nursing reports/observations, may be due to inability to ambulate w/o support and pt wetting her briefs rather than in the toilet - recommend further work up as outpatient if necessary Recurrent falls - pt found under her dining room table with minimal memory of the afternoon - CT head neg, CK elevated at 752 - s/p fluid resuscitation with 1L NSS followed by LR at 125 mL/hr x3 bags - falls possibly secondary to polypharmacy of sedating meds/deconditioning due to chronic pain - PT recommending rehab; plan for discharge Tuesday 12/19 Metabolic encephalopathy- resolved - pt on multiple sedating meds including tizanidine, paroxetine, gabapentin, and diazepam - continue gabapentin to 200mg TID 12/11 Hypertensive urgency - BP overall improved - currently on home losartan 100 mg daily - this hospitalization, started metoprolol 25 mg BID d/t atrial tachycardia- plan to continue upon discharge Asymptomatic COVID-19 - recent COVID + status, no documented date of positive test; positive on admission - continue isolation precautions; end date 12/18 - no indication for steroids or antivirals at this time Demand ischemia - EKG without any acute ST elevation or depression - trop peaked and has since downtrended - suspect in the setting of HTN Osteoarthritis - R hip XR without change from previous- showing severe osteoarthritis - hx of SI joint injections in the past - continue home gabapentin, duloxetine, and lidocaine patch PTSD - continue home duloxetine, paroxetine, and gabapentin IBS - continue home miralax Diet: regular, gluten free, lactose free DVT ppx: lovenox Code: DNR/DNI Dispo: pending rehab placement ([facility] accept Tuesday 12/19- transport at 9:30AM) (2) COVID-19: (3) Hypertension: (4) Urinary incontinence: (5) Elevated troponin: (6) Ambulatory dysfunction: (7) Osteoarthritis: (8) Irritable bowel syndrome (IBS): (9) Post traumatic stress disorder: (10) Urinary frequency: Admission and Anticipated Discharge Date Admission Date: December 08, 2022 Supervising Physician Co-Signing Physician Notes I personally examined the patient and verified all gilliam points of history and exam, discussed case, and agree with decision making with Dr Heredia sleeping comfortably. no apparent distress. no new issues noted and just waiting on placement for tomorrow. Vitals noted, in no distress. HEENT normocephalic atraumatic mucous membranes moist. Breathing unlabored no accessory muscle use good effort. Skin shows no rashes no pallor or icterus. WeaknessPT/OT, ongoing outpatient orthopedics follow-up, agree that SNF/rehab emphasis would be a good disposition for at this time. Otherwise as above. medically stable, subacute rehab/SNF tomorrow, again no changes today DVT proph - lovenox Subjective Pt wishing to move from bed to chair this AM. She is also concerned about what she will wear tomorrow when she gets discharged to rehab. Review of Systems Review of Systems: As per HPI Physical Exam Physical Exam: Constitutional: well appearing, no acute distress HEENT: normocephalic, no conjunctival injection CV: clinically well perfused, no LE edema Respiratory: no increased work of breathing MSK: no gross deformities noted Skin: warm, dry, no rashes Neuro: alert, oriented, no FND noted Results & Data Results & Data Vital Signs (Past 12 Hours) Vital Signs Temp Pulse Resp BP Pulse Ox Pulse Ox O2 Del Method 12/17/22 22:50 36.8 C 72 18 138/64 95 Room Air 12/17/22 21:00 94 O2 Del Method 12/17/22 22:50 12/17/22 21:00 Room Air Resident Activity Tracking Resident Involvement: Resident Care Provided Care Provided: Adult Hospital Medicine (1) Falls Encounter type: initial encounter Qualified Code(s): W19.XXXA - Unspecified fall, initial encounter (3) Hypertension Hypertension type: unspecified Qualified Code(s): I10 - Essential (primary) hypertension
[2022-12-18] MEDS: LOSARTAN POTASSIUM 50 MG TAB PO SCH (09:09)
[2022-12-18] MEDS: GABAPENTIN 100 MG CAP PO SCH ×3 (09:09→21:33)
[2022-12-18] MEDS: DULoxetine HCL 30 MG CAP PO SCH ×2 (09:09→21:15)
[2022-12-18] MEDS: METOPROLOL TARTRATE 25 MG TAB PO SCH (09:10)
[2022-12-18] MEDS: CHOLECALCIFEROL 1,000 UNITS 25 MCG TAB PO SCH (09:10)
[2022-12-18] MEDS: CALCIUM CARBONATE 1250MG TAB PO SCH (09:10)
[2022-12-18] MEDS: PARoxetine HCL 20 MG TAB PO SCH (09:10)
[2022-12-18] MEDS: POLYETHYLENE (MIRALAX) 17 GM PACK PO SCH ×2 (09:23→21:32)
[2022-12-18] MEDS: ACETAMINOPHEN 325 MG TAB PO PRN ×2 (09:23→15:17)
[2022-12-18] MEDS: diazePAM 5 MG TABLET PO PRN (15:17)
--- NOTE | 2022-12-18 18:18 | Billing Data ---
Date of Service December 18, 2022 Coding Level of Care Code 03635 SUB INP/OBS CARE
[2022-12-18] MEDS: ENOXAPARIN INJ 40 MG/0.4 ML SYR SQ SCH (21:15)
--- NOTE | 2022-12-19 06:45 | Discharge Summary ---
Date of Service December 19, 2022 Admission HPI Per Admitting Provider Laurel is an 82 year old female w/ PmHx chronic R hip pain, ambulatory dysfunction, PTSD/anxiety, osteoporosis, DJD, HTN, hypothyroidism, IBS brought into the ED by EMS after she was found yelling under her dining room apartment. Patient is tough to get a history from due to her not sleeping much the night before. Patient is alert and oriented x3 for me in the room but nodding off with sentences. Patient stated she does not remember too much from what happened earlier in the day although she does remember going under her table and states that there were people coming to check out her furniture today. She states that she was unable to sleep last night very much and is thus very tired today, unsure if that is contributing to her lapse in memory for what happened. She mentioned there may be some kind of issue where she may be evicted from her apartment however I was not able to get much else information on this from her. She denies any shortness of breath, chest pain, cough, congestion, headache, numbness or tingling in her arms or legs, swelling, abdominal pain. In the ED she had high blood pressures since arrival, only 1L NSS given. I ordered lopressor 5mg IV and losartan 50mg while patient was in the ED since patient had not had any medications all day including no orders for blood pressure treatment while in the ED. COVID+, WBC 11.32, Hgb 10.2, Plt 480, Na 134, Troponin 103.7, CK 752. Head CT negative, CXR negative for acute processes, R hip XR without any change from previous. Admission Exam Per Admitting Provider Constitutional: Patient able to be woken up in bed however nodding off when speaking. Eyes: Eyelids bilaterally trace swelling, telangiectatic. Respiratory: normal respiratory effort, lungs clear to auscultation Cardiovascular: Rate/Rhythm: + tachycardic Heart Sounds: normal S1 and normal S2 No peripheral edema. Gastrointestinal (Abdomen): normal bowel sounds, soft, nontender, no hepatosplenomegaly Skin: no rashes, warm and dry Psychiatric: A+Ox3, euthymic affect Principal Diagnosis COVID, deconditioning Discharge Exam Constitutional: well appearing, no acute distress HEENT: normocephalic, no conjunctival injection but erythema surrounding bilateral eyes indicative of dry eyes CV: clinically well perfused, no LE edema Respiratory: no increased work of breathing MSK: no gross deformities noted Skin: warm, dry, no rashes Neuro: alert, oriented, no FND noted Discharge Data Allergies Allergy/AdvReac Type Severity Reaction Status Date / Time sulfamethoxazole Allergy Unknown Unknown Verified 12/08/22 18:57 [From Bactrim] trimethoprim [From Bactrim] Allergy Unknown Unknown Verified 12/08/22 18:57 prednisone AdvReac Severe TROUBLE Verified 11/10/22 14:48 WITH BLADDER CONTROL gluten AdvReac Intermediate Gastrointestinal Verified 11/10/22 14:48 Upset lactose AdvReac Intermediate Gastrointestinal Verified 11/10/22 14:48 Upset Consultations 12/08/22 18:17 ED Decision to Admit Stat Ordered Studies 12/08/22 16:55 CT head/brain wo con Stat Impression: No acute intracranial hemorrhage, no evidence of acute territorial infarction or other acute intracranial disease process. 12/08/22 Hip and Pelvic X-ray IMPRESSION: Redemonstration of severe osteoarthritis of femoral head flattening the right hip. Hospital Course (1) Falls: Pt is an 82 yo female with a PMH of chronic R hip pain, ambulatory dysfunction, PTSD/anxiety, osteoporosis, DJD, HTN, hypothyroidism, and IBS presented to the ED via EMS as patient was found yelling under her dining room table admitted for further workup and PT/OT evaluation. Pt continuing to work with PT/OT and they are still recommending rehab. Plan for discharge 12/19 to [facility]. Urinary incontinence/frequency - unsure if this is a chronic issue or acute; does not seem to be hx of this; pt mentions that she believes a medication may be causing this - UA neg for infection - per nursing reports/observations, may be due to inability to ambulate w/o support and pt wetting her briefs rather than in the toilet - recommend further work up as outpatient if necessary Recurrent falls - pt found under her dining room table with minimal memory of the afternoon - CT head neg, CK elevated at 752 - s/p fluid resuscitation with 1L NSS followed by LR at 125 mL/hr x3 bags - falls possibly secondary to polypharmacy of sedating meds/deconditioning due to chronic pain - PT recommending rehab; discharge to [facility] Metabolic encephalopathy- resolved - pt on multiple sedating meds including tizanidine, paroxetine, gabapentin, and diazepam - continue gabapentin to 200mg TID Hypertensive urgency - BP overall improved - currently on home losartan 100 mg daily - this hospitalization, started metoprolol 25 mg daily d/t atrial tachycardia- continue upon discharge Asymptomatic COVID-19 - recent COVID + status, no documented date of positive test; positive on admission - continue isolation precautions; end date 12/18 - no indication for steroids or antivirals Demand ischemia - EKG without any acute ST elevation or depression - trop peaked and has since downtrended - suspect in the setting of HTN Osteoarthritis - R hip XR without change from previous- showing severe osteoarthritis - hx of SI joint injections in the past - continue home gabapentin, duloxetine, and lidocaine patch PTSD - continue home duloxetine, paroxetine, and gabapentin IBS - continue home miralax Diet: regular, gluten free, lactose free DVT ppx: lovenox Code: DNR/DNI Dispo: d/c to [facility] (2) COVID-19: (3) Hypertension: (4) Urinary incontinence: (5) Elevated troponin: (6) Ambulatory dysfunction: (7) Osteoarthritis: (8) Irritable bowel syndrome (IBS): (9) Post traumatic stress disorder: (10) Urinary frequency: Total Time Total Time Spent Total Time Spent (In Minutes): I spent 25 minutes seeing the patient, reviewing the chart, and documenting. Discharge Plan Discharge Items Patient Disposition: Transfer Inpatient Rehab Fac Reason For Visit: COVID, CONFUSION Discharge Diagnosis: COVID, deconditioning Activity: Per Instructions section Non-emergency contact: Primary Care Provider Call non-emergency contact if: you have any medication questions and your symptoms worsen Follow-up/Referrals: Trudy Junior DO [Primary Care Provider] - Diet: Regular, Gluten Free and Lactose Intolerant Addtl Attending Provider Instructions: t is an 82 yo female with a PMH of chronic R hip pain, ambulatory dysfunction, PTSD/anxiety, osteoporosis, DJD, HTN, hypothyroidism, and IBS presented to the ED via EMS as patient was found yelling under her dining room table admitted for further workup and PT/OT evaluation. Pt worked with PT/OT and recommended rehab. Plan for discharge today to [facility]. Urinary incontinence/frequency - appears to be a chronic concern; pt mentions that she believes a medication may be causing this - UA neg for infection - per nursing reports/observations, may be due to inability to ambulate w/o support and pt wetting her briefs rather than in the toilet - recommend further work up as outpatient if necessary Recurrent falls - pt found under her dining room table with minimal memory of the afternoon - CT head neg, CK elevated at 752 - s/p fluid resuscitation with 1L NSS followed by LR at 125 mL/hr x3 bags - falls possibly secondary to polypharmacy of sedating meds/deconditioning due to chronic pain (hold muscle relaxer as these not given while hospitalized) - PT recommending rehab; discharge today to rehab - control of pt's hip pain with surgical intervention may also prevent future falls Metabolic encephalopathy- resolved - pt on multiple sedating meds including tizanidine, paroxetine, gabapentin, and diazepam - continue gabapentin 200mg TID Hypertensive urgency - BP overall improved - currently on home losartan 100 mg daily - this hospitalization, started metoprolol 25 mg daily d/t run of atrial tachycardia- continue upon discharge Asymptomatic COVID-19 - recent COVID + status, no documented date of positive test; positive on admission - isolation precautions ended 12/18 after 10 day quarantine - no indication for steroids or antivirals during this hospitalization Demand ischemia - EKG without any acute ST elevation or depression - trop peaked and has since downtrended - suspect in the setting of HTN Osteoarthritis - R hip XR without change from previous- showing severe osteoarthritis - hx of SI joint injections in the past - continue home gabapentin, duloxetine, and lidocaine patch PTSD - continue home duloxetine, paroxetine, and gabapentin IBS - continue home miralax Diet: regular, gluten free, lactose free DVT ppx: lovenox Code: DNR/DNI Dispo: [facility] for rehab Pending Studies at Discharge: No Stand-Alone Forms: My [facility] [employer] Skilled Items Patient informed of condition?: Yes DNR: Yes Discharge Level of Care: Acute rehab Communicable Disease: Yes (COVID positive (post 10 day quarantine)) Discharge Prognosis: Stable Lines: None Urinary Catheter: No Medications and DC Order Prescriptions: New metoprolol tartrate 25 mg Tablet 25 mg PO QAM Qty: 30 0RF Continued gabapentin 300 mg capsule See Rx Instructions PO .COMPLEX Qty: 90 0RF Rx Instructions: take 1 tablet twice a day for 1 week then increase to 1 tablet three times a day orally; ok to dispense tablets Qbrexza 2.4 % towelette 1 applic topical DAILY Qty: 30 3RF Rx Instructions: Apply to each underarm not more frequently than once every 24 hours cholecalciferol (vitamin D3) 50 mcg (2,000 unit) capsule 50 mcg PO DAILY triamcinolone acetonide 0.1 % ointment 1 applic topical BID Qty: 80 2RF losartan 100 mg tablet 100 mg PO DAILY Patient Comments: CONFIRMED ON [facility] DC SUMMARY 11/30 polyethylene glycol 3350 [Miralax] 17 gram/dose Powder 1 dose PO QAM diazepam 5 mg Tablet 5 mg PO TID PRN (Reason: Anxiety) cyclosporine [Restasis] 0.05 % Dropperette 1 drp OPHTHALMIC (EYE) Q12H duloxetine 30 mg Capsule,Delayed Release(Dr/Ec) 30 mg PO BID red yeast rice 600 mg capsule 1,200 mg PO QAM peppermint oil Oil 1 applic TOPICAL DIRECTED PRN (Reason: Pain) paroxetine HCl [Paxil] 40 mg Tablet 40 mg PO QAM psyllium husk 3 gram/5.4 gram Powder 1 tbsp PO HS apple cider vinegar 500 mg tablet 500 mg PO DAILY calcium carbonate [Calcium 600] 600 mg calcium (1,500 mg) Tablet 600 mg PO DAILY diclofenac sodium [Voltaren Arthritis Pain] 1 % gel 2 g topical QID PRN (Reason: pain) Qty: 100 4RF Rx Instructions: apply to right hip and leg Held tizanidine [Zanaflex] 4 mg capsule 2 mg PO HS Hold Instructions: Hold due to frequent falls Discharge Orders: Discharge Order (Routine); Ordered 12/19/22 Ordered By: Jackelyn Heredia Admission Data Admit Date/Time: 12/08/22 19:20 Attending Provider: Kostas Shaw Admit Provider: Valente Ramirez Primary Care Provider: Trudy Junior Other Providers: [facility] ; [facility] ; Joaquin Fox Supervising Physician Co-Signing Physician Notes I also saw the patient this morning and confirmed gilliam features of the clinical history and exam. Agree with the impression and plan as noted in the resident discharge. Patient is scheduled to be transferred to [facility] around 930. She is looking forward to seeing orthopedics as an outpatient for hopeful surgery on her hip. Her only complaint is that of eye irritation secondary to chronic dry eyes. She tells me she is on Restasis at home though not clear if she has been getting that or a generic equivalent here. Since she is leaving in about 1/2-hour, instructed patient to advise staff at [facility] with regards to her home regimen for her eyes. Resident Activity Tracking Resident Involvement: Resident Care Provided Care Provided: Adult Hospital Medicine
[2022-12-19] MEDS: CHOLECALCIFEROL 1,000 UNITS 25 MCG TAB PO SCH (09:07)
[2022-12-19] MEDS: POLYETHYLENE (MIRALAX) 17 GM PACK PO SCH (09:07)
[2022-12-19] MEDS: CALCIUM CARBONATE 1250MG TAB PO SCH (09:08)
[2022-12-19] MEDS: METOPROLOL TARTRATE 25 MG TAB PO SCH (09:08)
[2022-12-19] MEDS: GABAPENTIN 100 MG CAP PO SCH (09:08)
[2022-12-19] MEDS: DULoxetine HCL 30 MG CAP PO SCH (09:08)
[2022-12-19] MEDS: LOSARTAN POTASSIUM 50 MG TAB PO SCH (09:09)
[2022-12-19] MEDS: PARoxetine HCL 20 MG TAB PO SCH (09:09)
[2022-12-19] MEDS: ACETAMINOPHEN 325 MG TAB PO PRN (09:33)
== END 2022-12-19 09:51 | DRG 177 ==
LOC: ED 15:39 → SUATTDRO 19:20 → 2W 19:20 → 3W 12-13 23:33

== ENCOUNTER 2023-01-12 18:25 | Inpatient (IN) ==
[2023-01-12 21:50] LABS: Basophils # (auto) 0.09 K/uL (0.00-0.20); Eosinophils # (auto) 0.23 K/uL (0.00-0.50); Eosinophils % (auto) 2.6 %; Hematocrit (blood only) 35.9 % (37.0-47.0); Hemoglobin 11.8 g/dl (12.0-16.0); Immature Granulocytes # (auto) 0.03 K/uL (0.01-0.20); Immature Granulocytes % (auto) 0.3 %; Lymphocytes # (auto) 1.69 K/uL (1.20-3.40); Lymphocytes % (auto) 19.3 %; Mean Corpuscular Hemoglobin 28.6 pg (25.0-34.0); Mean Corpuscular Hgb Conc 32.9 g/dL (32.0-36.0); Mean Corpuscular Volume 86.9 fL (80.0-100.0); Mean Platelet Volume 10.7 fL (9.4-12.4); Monocytes # (auto) 0.83 K/uL (0.11-0.59); Monocytes % (auto) 9.5 %; Neutrophils # (auto) 5.89 K/uL (1.40-6.50); Neutrophils % (auto) 67.3 %; Platelet Count 414 K/uL (130-400); RDW Coefficient of Variation 13.6 % (11.5-14.5); Red Blood Count 4.13 M/uL (4.20-5.40); White Blood Count 8.76 K/ul (4.8-10.8)
[2023-01-12 22:02] LABS: Albumin Globulin Ratio 1.1 (0.9-2); Albumin Level 3.9 gm/dl (3.4-5.0); BUN Creatinine Ratio 25.2 (10-20); Bilirubin,Total 0.9 mg/dl (0.2-1.0); Calcium 10.7 mg/dl (8.6-10.3); Creatinine Clr Calc Pharmacy 34.1 ml/min; Est GFR (African American) 56.4 ml/min; Est GFR (Non-African American) 48.6 ml/min; Globulin 3.6 gm/dl (2.5-4.0); Potassium 4.4 mmol/L (3.5-5.1); Total Protein 7.5 gm/dl (6.0-8.3)
--- NOTE | 2023-01-13 01:52 | Emergency Department Note ---
Impression & Plan Ambulatory dysfunction, Hip arthritis, Osteoarthritis ED Provider Note NAME: MADELINE CHACON AGE: 83 SEX: F ARRIVES VIA: Ambulance INFORMANT: Patient ED PROVIDER(S): Geoff Persaud MD CHIEF COMPLAINT: Placement PLAN: Disposition: Admit MEDICAL DECISION MAKING: The patient is an 83-year-old woman with a past medical history of amatory dysfunction, severe right hip osteoarthritis, IBS, anxiety, depression, CKD who presents to the emergency department via EMS for placement after the patient was discharged from [facility] this afternoon per the patient's report. The patient reports that the [employer] ambulance drive her brought her home and had determined that he did not feel that she could function safely at home by herself. She reports they contacted the supervisor cereal and were instructed to take the patient to emergency department. The patient acknowledges that there may have been a plan set forth by [facility] but she is not aware of the details but when she arrived home there were no individuals there to help her. She denies any recent falls during her stay at her residential facility. Per records, the patient was admitted to this facility from 12/08-12/19 for worsening chronic right hip pain and amatory dysfunction unable to function at home. She had had recurrent falls. She also was noted to have metabolic encephalopathy related to polypharmacy. The patient was initially discharged to [facility] however returned that same day because she was not pleased with the facility and so case management was able to place the patient at a different facility which was [facility] for rehab from which she was discharged today. She denies any fevers, chills, cough, congestion, GI/ symptoms. Of note, the patient did arrive to emergency department during time of high volume, acuity and prolonged emergency department waiting times. Critical pathways initiated from triage. WBC and platelets within normal limits. H/H similar to prior. Platelets 414 K, nonspecific and similar to prior. Chemistry without metabolic acidosis. Calcium was 10.7 and otherwise electrolytes and LFTs without significant abnormality. Given the patient was just discharged today from [facility] and the patient denies any acute change in her health no additional testing performed at this time. She was provided with IV fluid hydration. Case management did make attempts to reach out to [facility] to gather more information regarding their discharge plan to see if safe discharge home would be possible. While staff member was initially available and had informed our supportive employment case manager that they would look up her record and call back with details this never happened and upon repeated attempts to contact them subsequently there was no answer. Thus, given the patient is unable to be at home by herself without assistance due to her ambulatory dysfunction the patient was referred to the hospitalist service for admission for further attempt at placement. Case was discussed with LANRE Caceres hospitalist, who will evaluate the patient for admission. Triage Nursing notes reviewed and agree them. Prior/outside-external medical records reviewed. X-ray performed on 11/2122 demonstrates severe osteoarthritis of the femoral head flattening of the right hip. Vital Signs: reviewed Differential diagnosis: Infection, dehydration, metabolic abnormality, hypo/hyperglycemia, electrolyte disturbance, anemia, hypoxia, cardiac sources, intracerebral event, toxicologic, neurologic, as well as other pathologies. ER treatment provided: See below. Diagnostics interpreted by me: ECG: Sinus bradycardia with sinus arrhythmia, 59 bpm, no ectopy, LVH, no overt ST elevation or depression, QTc 382, QRS 88. Cardiac Monitoring: An order for continuous cardiac monitoring was placed and demonstrated sinus bradycardia with sinus arrhythmia, 59 bpm, no ectopy Laboratory studies: See below Imaging studies: See below Consultation(s): Case was discussed with MARIYA Caceres hospitalist, who will evaluate the patient for admission. HPI: The patient is an 83-year-old woman with a past medical history of amatory dysfunction, severe right hip osteoarthritis, IBS, anxiety, depression, CKD who presents to the emergency department via EMS for placement after the patient was discharged from [facility] this afternoon per the patient's report. The patient reports that the [employer] ambulance drive her brought her home and had determined that he did not feel that she could function safely at home by herself. She reports they contacted the supervisor cereal and were instructed to take the patient to emergency department. The patient acknowledges that there may have been a plan set forth by [facility] but she is not aware of the details but when she arrived home there were no individuals there to help her. She denies any recent falls during her stay at her residential facility. Per records, the patient was admitted to this facility from 12/08-12/19 for worsening chronic right hip pain and amatory dysfunction unable to function at home. She had had recurrent falls. She also was noted to have metabolic encephalopathy related to polypharmacy. The patient was initially discharged to [facility] however returned that same day because she was not pleased with the facility and so case management was able to place the patient at a different facility which was [facility] for rehab from which she was discharged today. She denies any fevers, chills, cough, congestion, GI/ symptoms. ROS: See above HPI for pertinent positives & negatives. A total of 10 systems reviewed and were otherwise negative. VITALS:See Below PHYSICAL EXAMINATION: GENERAL: Awake, alert, frail but well-appearing, in no distress HENT: Normocephalic, atraumatic. Oropharynx with dry mucous membranes and otherwise unremarkable. EYES: Normal conjunctiva. Sclera non-icteric. NECK: Supple. No nuchal rigidity. FROM. No JVD. RESPIRATORY: Clear to auscultation. CARDIAC: Regular rate, normal rhythm. Extremities warm and well perfused. Pulses equal. ABDOMEN: Soft, non-distended. No tenderness to palpation. No rebound or guarding. No masses. RECTAL: Deferred. MUSCULOSKELETAL: Chest examination reveals no tenderness. The back is symmetrica l on inspection without obvious abnormality. There is no CVA tenderness to palpation. Right hip with pain with active and passive ROM. Distal PMS intact. LOWER EXTREMITIES: Calves are equal size bilaterally and non-tender. No edema. No discoloration. NEURO: Normal sensorium. No sensory or motor deficits noted. SKIN: No rash or jaundice noted. Geoff Persaud MD Past Med/Surg History Medical History Anxiety Bursitis Cardiac murmur dx within last few years Cervical spinal stenosis Chronic back pain Chronic kidney disease STAGE 3 > doesn't follow anyone for this > pt denies Depression Hypertension Irritable bowel syndrome (IBS) Osteoarthritis Osteoporosis Post traumatic stress disorder Surgical History History of carpal tunnel release BILATERAL History of cataract surgery BILATERAL History of cholecystectomy LAP History of colonoscopy History of esophagogastroduodenoscopy (EGD) History of lumpectomy of left breast History of open reduction and internal fixation (ORIF) procedure LEFT ANKLE History of salpingo-oophorectomy S/P BRETT (total abdominal hysterectomy) Family History Father Alcoholic Prostate cancer Hypertension Mother CHF (congestive heart failure) Glaucoma Obesity Social History Smoking Status: Never smoker Tobacco Type: Cigarettes Second Hand Exposure: No; Do You Dip or Chew Tobacco: No; Hx Alcohol Use: No Hx Substance Use: No Preferred Language: Omani Communication Ability: Effective Dependency Case Manager Required: No Beliefs That Will Affect Care: None marital status: Current Living Situation: Alone Current Living Situation Comment: Pt. lives at [facility], states she is to be evicted current occupational status: employed current occupation: [employer] Feels Safe at Home: No Is there a partner from a previous relationship who is making you feel unsafe now?: No (daughter boyfriend) Gender Identity: Female Assistive Devices: Walker Allergies Allergies Allergy/AdvReac Type Severity Reaction Status Date / Time sulfamethoxazole Allergy Unknown Unknown Verified 12/08/22 18:57 [From Bactrim] trimethoprim [From Bactrim] Allergy Unknown Unknown Verified 12/08/22 18:57 prednisone AdvReac Severe TROUBLE Verified 11/10/22 14:48 WITH BLADDER CONTROL gluten AdvReac Intermediate Gastrointestinal Verified 11/10/22 14:48 Upset lactose AdvReac Intermediate Gastrointestinal Verified 11/10/22 14:48 Upset Home Meds Home Medications Medication Instructions Recorded Confirmed cyclosporine 0.05 % eye drops in a 1 drp ophthalmic (eye) Q12H 01/09/18 12/08/22 dropperette (Restasis) diazepam 5 mg tablet 5 mg PO TID PRN Anxiety 01/09/18 12/08/22 duloxetine 30 mg capsule,delayed 30 mg PO BID 01/09/18 12/08/22 release polyethylene glycol 3350 17 1 dose PO QAM 01/09/18 12/08/22 gram/dose oral powder (Miralax) red yeast rice 600 mg capsule 1,200 mg PO QAM 05/08/19 12/08/22 paroxetine HCl 40 mg tablet (Paxil) 40 mg PO QAM 08/13/20 12/08/22 peppermint oil 1 applic topical DIRECTED PRN 08/13/20 12/08/22 Pain psyllium husk 3 gram/5.4 gram oral 1 tbsp PO HS 08/13/20 12/08/22 powder apple cider vinegar 500 mg tablet 500 mg PO DAILY NEEDED 10/01/20 12/08/22 cholecalciferol (vitamin D3) 50 50 mcg PO DAILY 10/01/20 12/08/22 mcg (2,000 unit) capsule calcium carbonate 600 mg calcium 600 mg PO DAILY 07/30/22 12/08/22 (1,500 mg) tablet (Calcium) tizanidine 4 mg capsule (Zanaflex) 2 mg PO HS 11/10/22 12/08/22 losartan 100 mg tablet 100 mg PO DAILY 11/30/22 12/08/22 Previous Rx's Medication Instructions Recorded triamcinolone acetonide 0.1 % 1 applic topical BID #80 grams 06/17/22 topical ointment glycopyrronium tosylate 2.4 % 1 applic topical DAILY #30 ea 07/28/22 towelette (Qbrexza) diclofenac sodium 1 % topical gel 2 g topical QID PRN pain #100 grams 11/10/22 (Voltaren Arthritis Pain) gabapentin 300 mg capsule See Rx Instructions PO .COMPLEX 11/15/22 #90 caps metoprolol tartrate 25 mg tablet 25 mg PO QAM #30 tabs 12/18/22 Results & Data (ED) Vital Signs Vital Signs - 24 hr 01/12/23 19:25 01/13/23 01:00 01/13/23 02:31 Temperature 36.6 C Temperature Source Temporal Artery Scan Pulse Rate 103 H Pulse Rate [Apical] 65 68 Respiratory Rate 18 18 18 Respiratory Effort / Characteristics Non-Labored Respiratory Depth Normal Respiratory Pattern Blood Pressure 119/51 L Blood Pressure [Right Arm] 148/108 H 175/44 H Blood Pressure Mean 73 Blood Pressure Mean [Right Arm] 121 87 Pulse Oximetry 98 92 Oxygen Delivery Method Room Air Room Air Sepsis Recent Fever Within 48 Hours No Sepsis New/Unexplained Change in Mental Status No Sepsis Action Taken by Nursing No Action Required 01/13/23 01:35 01/13/23 04:00 Temperature Temperature Source Pulse Rate 64 Pulse Rate [Apical] 64 Respiratory Rate 17 Respiratory Effort / Characteristics Non-Labored Spontaneous Respiratory Depth Normal Respiratory Pattern Regular Blood Pressure Blood Pressure [Right Arm] 174/57 H Blood Pressure Mean Blood Pressure Mean [Right Arm] 96 Pulse Oximetry 97 Oxygen Delivery Method Room Air Sepsis Recent Fever Within 48 Hours Sepsis New/Unexplained Change in Mental Status Sepsis Action Taken by Nursing Laboratory Data Attestation: I reviewed the patient's lab results. 01/12/23 21:15 01/12/23 21:15 Lab Results 01/12/23 01/12/23 01/13/23 Range/Units 21:15 21:15 03:06 WBC 8.76 (4.8-10.8) K/ul RBC 4.13 L (4.20-5.40) M/uL Hgb 11.8 L (12.0-16.0) g/dl Hct 35.9 L (37.0-47.0) % MCV 86.9 (80.0-100.0) fL MCH 28.6 (25.0-34.0) pg MCHC 32.9 (32.0-36.0) g/dL RDW Std Deviation 43.0 (36.4-46.3) fL RDW Coeff of Elis 13.6 (11.5-14.5) % Plt Count 414 H (130-400) K/uL MPV 10.7 (9.4-12.4) fL Immature Gran % (Auto) 0.3 % Neut % (Auto) 67.3 % Lymph % (Auto) 19.3 % Wagoner % (Auto) 9.5 % Eos % (Auto) 2.6 % Baso % (Auto) 1.0 % Neut # (Auto) 5.89 (1.40-6.50) K/uL Lymph # (Auto) 1.69 (1.20-3.40) K/uL Wagoner # (Auto) 0.83 H (0.11-0.59) K/uL Eos # (Auto) 0.23 (0.00-0.50) K/uL Baso # (Auto) 0.09 (0.00-0.20) K/uL Immature Gran # (Auto) 0.03 (0.01-0.20) K/uL Sodium 135 L (136-145) mmol/L Potassium 4.4 (3.5-5.1) mmol/L Chloride 102 (98-107) mmol/L Carbon Dioxide 28 (21-32) mmol/L Anion Gap 5 (3-11) BUN 27 H (6-23) mg/dl Creatinine 1.07 (0.6-1.2) mg/dl Est Cr Clr Drug Dosing 34.1 ml/min Est GFR ( Amer) 56.4 ml/min Est GFR (Non-Af Amer) 48.6 ml/min BUN/Creatinine Ratio 25.2 H (10-20) Glucose 156 H (70-99(Fasting)) mg/dl Calcium 10.7 H (8.6-10.3) mg/dl Total Bilirubin 0.9 (0.2-1.0) mg/dl AST 25 (13-39) U/L ALT 18 (7-52) U/L Alkaline Phosphatase 219 H (34-104) U/L Total Protein 7.5 (6.0-8.3) gm/dl Albumin 3.9 (3.4-5.0) gm/dl Globulin 3.6 (2.5-4.0) gm/dl Albumin/Globulin Ratio 1.1 (0.9-2) SARS-CoV-2, RNA, NAAT NEGATIVE (NEGATIVE) Administered Medications Sodium Chloride (Nss) 1,000 mls @ 125 mls/hr IV .Q8H MARLEN Stop: 02/12/23 02:14 Last Admin: 01/13/23 02:29 Dose: 125 mls/hr Documented By: YESI Discharge Plan Visit Data Chief Complaint: Illness Stated Complaint: POSSIBLE PLACEMENT ED Provider: Geoff Persaud Discharge Problem: Ambulatory dysfunction, Hip arthritis, Osteoarthritis Forms Stand Alone Forms: My [facility] Prescriptions Prescriptions: No Action gabapentin 300 mg capsule See Rx Instructions PO .COMPLEX Qty: 90 0RF Rx Instructions: take 1 tablet twice a day for 1 week then increase to 1 tablet three times a day orally; ok to dispense tablets Qbrexza 2.4 % towelette 1 applic topical DAILY Qty: 30 3RF Rx Instructions: Apply to each underarm not more frequently than once every 24 hours cholecalciferol (vitamin D3) 50 mcg (2,000 unit) capsule 50 mcg PO DAILY triamcinolone acetonide 0.1 % ointment 1 applic topical BID Qty: 80 2RF losartan 100 mg tablet 100 mg PO DAILY Patient Comments: CONFIRMED ON [facility] DC SUMMARY 11/30 polyethylene glycol 3350 [Miralax] 17 gram/dose Powder 1 dose PO QAM diazepam 5 mg Tablet 5 mg PO TID PRN (Reason: Anxiety) cyclosporine [Restasis] 0.05 % Dropperette 1 drp OPHTHALMIC (EYE) Q12H duloxetine 30 mg Capsule,Delayed Release(Dr/Ec) 30 mg PO BID red yeast rice 600 mg capsule 1,200 mg PO QAM tizanidine [Zanaflex] 4 mg capsule 2 mg PO HS Hold Instructions: Hold due to frequent falls peppermint oil Oil 1 applic TOPICAL DIRECTED PRN (Reason: Pain) paroxetine HCl [Paxil] 40 mg Tablet 40 mg PO QAM psyllium husk 3 gram/5.4 gram Powder 1 tbsp PO HS apple cider vinegar 500 mg tablet 500 mg PO DAILY calcium carbonate [Calcium 600] 600 mg calcium (1,500 mg) Tablet 600 mg PO DAILY diclofenac sodium [Voltaren Arthritis Pain] 1 % gel 2 g topical QID PRN (Reason: pain) Qty: 100 4RF Rx Instructions: apply to right hip and leg metoprolol tartrate 25 mg Tablet 25 mg PO QAM Qty: 30 0RF Referrals Referrals: Trudy Junior DO [Primary Care Provider] -
[2023-01-13] MEDS ORDERED: SODIUM CHLORIDE 0.9% 1,000 ML IV SCH (02:15)
--- NOTE | 2023-01-13 05:16 | History & Physical Report ---
Date of Service January 13, 2023 Assessment & Plan (1) Dementia with agitation: (2) Adjustment disorder with mixed disturbance of emotions and conduct: (3) Ambulatory dysfunction: (4) Post traumatic stress disorder: (5) Anxiety: (6) Depression: (7) Hypertension: Plan Dementia with agitation/PTSD/anxiety with depression/adjustment disorder with mixed disturbance of emotions and conduct- Admits to medical surgical Continue duloxetine 30 mg p.o. twice daily stop paroxetine 40 mg every morning Start Zyprexa 2.5 mg p.o. twice daily Zyprexa 2.5 mg IV every 6 hours as needed for agitation Continue gabapentin 300 mg p.o. 3 times daily Hold diazepam 5 mg 3 times daily as needed Patient will need assisted placement Consult public health social worker Contact [facility] during the day for further clarification of this evening's events that led to her being to the ED Hypertension- Continue losartan 100 mg daily, metoprolol tartrate 25 mg every morning History of Present Illness Chief Complaint: Patient presents to the emergency department after having been discharged from [facility] earlier in the day today via EMS. EMS felt that the patient was not safe to be living alone at home, and after consulting with their hotel or motel cleaning supervisor, the patient was brought to the emergency department for assessment and assisted placement. Primary Care Provider: Trudy Junior DO The patient is an 83-year-old female with a past medical history including urinary incontinence, COVID-19 infection, adjustment disorder with mixed disturbance of emotions and conduct, chronic hip pain, ambulatory dysfunction, posttraumatic stress disorder, anxiety with depression, hypertension, CKD and agitation. The patient had been most recently admitted to [facility] from 12/08-12/19/2022 for chronic hip pain, ambulatory dysfunction, confusion and agitation. She initially been discharged to [facility], however, did not like a day when she got there, and arrangements are made for her to be admitted to [facility]. Patient was discharged from [facility] this afternoon, and as noted above, transport felt that she would not safe to be living alone at home, their hotel or motel cleaning supervisor then recommended the patient be returned to the hospital emergency department, for assisted placement. Multiple messages were left by dependency case manager for [facility], to see if there was some type of plan of care where the patient wants to have someone at home helping her, however, return of page had not yet occurred by the time of admission. Allergies Allergy/AdvReac Type Severity Reaction Status Date / Time sulfamethoxazole Allergy Unknown Unknown Verified 12/08/22 18:57 [From Bactrim] trimethoprim [From Bactrim] Allergy Unknown Unknown Verified 12/08/22 18:57 prednisone AdvReac Severe TROUBLE Verified 11/10/22 14:48 WITH BLADDER CONTROL gluten AdvReac Intermediate Gastrointestinal Verified 11/10/22 14:48 Upset lactose AdvReac Intermediate Gastrointestinal Verified 11/10/22 14:48 Upset Home Medications Medication Instructions Recorded Confirmed Type cyclosporine 0.05 % eye drops in a 1 drp ophthalmic (eye) Q12H 01/09/18 12/08/22 History dropperette (Restasis) diazepam 5 mg tablet 5 mg PO TID PRN Anxiety 01/09/18 12/08/22 History duloxetine 30 mg capsule,delayed 30 mg PO BID 01/09/18 12/08/22 History release polyethylene glycol 3350 17 1 dose PO QAM 01/09/18 12/08/22 History gram/dose oral powder (Miralax) red yeast rice 600 mg capsule 1,200 mg PO QAM 05/08/19 12/08/22 History paroxetine HCl 40 mg tablet (Paxil) 40 mg PO QAM 08/13/20 12/08/22 History peppermint oil 1 applic topical DIRECTED PRN 08/13/20 12/08/22 History Pain psyllium husk 3 gram/5.4 gram oral 1 tbsp PO HS 08/13/20 12/08/22 History powder apple cider vinegar 500 mg tablet 500 mg PO DAILY NEEDED 10/01/20 12/08/22 History cholecalciferol (vitamin D3) 50 50 mcg PO DAILY 10/01/20 12/08/22 History mcg (2,000 unit) capsule triamcinolone acetonide 0.1 % 1 applic topical BID #80 grams 06/17/22 12/08/22 Rx topical ointment glycopyrronium tosylate 2.4 % 1 applic topical DAILY #30 ea 07/28/22 12/08/22 Rx towelette (Qbrexza) calcium carbonate 600 mg calcium 600 mg PO DAILY 07/30/22 12/08/22 History (1,500 mg) tablet (Calcium) diclofenac sodium 1 % topical gel 2 g topical QID PRN pain #100 grams 11/10/22 12/08/22 Rx (Voltaren Arthritis Pain) tizanidine 4 mg capsule (Zanaflex) 2 mg PO HS 11/10/22 12/08/22 History gabapentin 300 mg capsule See Rx Instructions PO .COMPLEX 11/15/22 12/08/22 Rx #90 caps losartan 100 mg tablet 100 mg PO DAILY 11/30/22 12/08/22 History metoprolol tartrate 25 mg tablet 25 mg PO QAM #30 tabs 12/18/22 Rx Past Med/Surg History Medical History Anxiety Bursitis Cardiac murmur dx within last few years Cervical spinal stenosis Chronic back pain Chronic kidney disease STAGE 3 > doesn't follow anyone for this > pt denies Depression Hypertension Irritable bowel syndrome (IBS) Osteoarthritis Osteoporosis Post traumatic stress disorder Surgical History History of carpal tunnel release BILATERAL History of cataract surgery BILATERAL History of cholecystectomy LAP History of colonoscopy History of esophagogastroduodenoscopy (EGD) History of lumpectomy of left breast History of open reduction and internal fixation (ORIF) procedure LEFT ANKLE History of salpingo-oophorectomy S/P BRETT (total abdominal hysterectomy) Family History Father Alcoholic Prostate cancer Hypertension Mother CHF (congestive heart failure) Glaucoma Obesity Social History Smoking Status: Never smoker Tobacco Type: Cigarettes Second Hand Exposure: No; Do You Dip or Chew Tobacco: No; Hx Alcohol Use: No Hx Substance Use: No Preferred Language: Urdu Communication Ability: Effective Bank Reconciliator Required: No Beliefs That Will Affect Care: None marital status: Current Living Situation: Alone Current Living Situation Comment: Pt. 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 Normocephalic and atraumatic, lying in bed and in no acute distress. HEENT--PERRL, EOMI, mucous membranes and oropharynx mildly dry Neck--supple. No JVD. No bruits. Thyroid normal, trachea midline, no adenopathy. Heart--normal S1 and S2. No murmurs, rubs or gallops. Lungs--clear bilaterally, no respiratory distress, no accessory muscle use. Abdomen--normal bowel sounds and soft. Nontender. Nondistended Extremities--no cyanosis or clubbing. No edema. Dermatologic--normal skin turgor, normal color, no abnormal lymph nodes, no rash. Neurologic--cranial nerves II through XII grossly intact. Rheumatologic--limited exam Psychiatric--sleeping after being agitated as above. Results & Data Results & Data Vital Signs (Past 12 Hours) Vital Signs Temp Pulse Pulse Resp BP BP Pulse Ox 01/13/23 04:00 64 17 174/57 H 97 01/13/23 01:35 64 01/13/23 02:31 68 18 175/44 H 01/13/23 01:00 65 18 148/108 H 92 01/12/23 19:25 36.6 C 103 H 18 119/51 L 98 O2 Del Method 01/13/23 04:00 Room Air 01/13/23 01:35 01/13/23 02:31 01/13/23 01:00 Room Air 01/12/23 19:25 Room Air Laboratory Results Laboratory Results WBC 8.76 K/ul (4.8-10.8) 01/12/23 21:15 RBC 4.13 M/uL (4.20-5.40) L 01/12/23 21:15 Hgb 11.8 g/dl (12.0-16.0) L 01/12/23 21:15 Hct 35.9 % (37.0-47.0) L 01/12/23 21:15 MCV 86.9 fL (80.0-100.0) 01/12/23 21:15 MCH 28.6 pg (25.0-34.0) 01/12/23 21:15 MCHC 32.9 g/dL (32.0-36.0) 01/12/23 21:15 RDW Std Deviation 43.0 fL (36.4-46.3) 01/12/23 21:15 RDW Coeff of Elis 13.6 % (11.5-14.5) 01/12/23 21:15 Plt Count 414 K/uL (130-400) H 01/12/23 21:15 MPV 10.7 fL (9.4-12.4) 01/12/23 21:15 Immature Gran % (Auto) 0.3 % 01/12/23 21:15 Neut % (Auto) 67.3 % 01/12/23 21:15 Lymph % (Auto) 19.3 % 01/12/23 21:15 [place] % (Auto) 9.5 % 01/12/23 21:15 Eos % (Auto) 2.6 % 01/12/23 21:15 Baso % (Auto) 1.0 % 01/12/23 21:15 Neut # (Auto) 5.89 K/uL (1.40-6.50) 01/12/23 21:15 Lymph # (Auto) 1.69 K/uL (1.20-3.40) 01/12/23 21:15 [place] # (Auto) 0.83 K/uL (0.11-0.59) H 01/12/23 21:15 Eos # (Auto) 0.23 K/uL (0.00-0.50) 01/12/23 21:15 Baso # (Auto) 0.09 K/uL (0.00-0.20) 01/12/23 21:15 Immature Gran # (Auto) 0.03 K/uL (0.01-0.20) 01/12/23 21:15 Sodium 135 mmol/L (136-145) L 01/12/23 21:15 Potassium 4.4 mmol/L (3.5-5.1) 01/12/23 21:15 Chloride 102 mmol/L (98-107) 01/12/23 21:15 Carbon Dioxide 28 mmol/L (21-32) 01/12/23 21:15 Anion Gap 5 (3-11) 01/12/23 21:15 BUN 27 mg/dl (6-23) H 01/12/23 21:15 Creatinine 1.07 mg/dl (0.6-1.2) 01/12/23 21:15 Est Cr Clr Drug Dosing 34.1 ml/min 01/12/23 21:15 Est GFR ( Amer) 56.4 ml/min 01/12/23 21:15 Est GFR (Non-Af Amer) 48.6 ml/min 01/12/23 21:15 BUN/Creatinine Ratio 25.2 (10-20) H 01/12/23 21:15 Glucose 156 mg/dl (70-99(Fasting)) H 01/12/23 21:15 Calcium 10.7 mg/dl (8.6-10.3) H 01/12/23 21:15 Total Bilirubin 0.9 mg/dl (0.2-1.0) 01/12/23 21:15 AST 25 U/L (13-39) 01/12/23 21:15 ALT 18 U/L (7-52) 01/12/23 21:15 Alkaline Phosphatase 219 U/L (34-104) H 01/12/23 21:15 Total Protein 7.5 gm/dl (6.0-8.3) 01/12/23 21:15 Albumin 3.9 gm/dl (3.4-5.0) 01/12/23 21:15 Globulin 3.6 gm/dl (2.5-4.0) 01/12/23 21:15 Albumin/Globulin Ratio 1.1 (0.9-2) 01/12/23 21:15 SARS-CoV-2, RNA, NAAT NEGATIVE (NEGATIVE) 01/13/23 03:06 Code Status & VTE Plan Code Status DNR/DNI per previous records VTE Prophylaxis Plan VTE Prophylaxis will be ordered: Yes PG Care Time/CCT Total # of Minutes Spent Total Time Spent with Patient: Total time spent is greater than 50% in coordination of care (as documented) at patient's floor/unit and/or counseling patient: Coding Level of Care Code 32378 INT INP/OBS CARE 3/75MIN Diagnoses Dementia with agitation F03.911 Adjustment disorder with mixed disturbance of emotions and conduct F43.25 Ambulatory dysfunction R26.2 Post traumatic stress disorder F43.10 Anxiety F41.9 Depression F32.9 Hypertension I10 Hypertension type: unspecified (7) Hypertension Hypertension type: unspecified Qualified Code(s): I10 - Essential (primary) hypertension
[2023-01-13] MEDS ORDERED: OLANZapine 10 MG/2.1 ML SDV IM PRN (05:23)
[2023-01-13] MEDS ORDERED: ONDANSETRON INJ 2 MG/ML 2 ML VIAL IV PRN (07:16)
[2023-01-13] MEDS ORDERED: PAROXETINE HCL 40 MG PO SCH (09:00)
--- NOTE | 2023-01-13 09:55 | Communication Note ---
Date of Service: January 13, 2023 Daytime addendum: Subjective: Seen bedside. Sleeping comfortably. No current issues or complaints. Objective: Constitutional: well-appearing, no acute distress CV: regular rhythm, no murmur appreciated, extremities well-perfused, no LE edema Resp: CTABL, no wheezes/rales/rhonchi appreciated, no increased work of breathing GI: soft, nondistended, nontender, BS normoactive Skin: warm, dry, no rash appreciated Assessment and Plan #Dementia with agitation/PTSD/anxiety with depression/adjustment disorder with mixed disturbance of emotions and conduct- -Admits to medical surgical -Continue duloxetine 30 mg p.o. twice daily stop paroxetine 40 mg every morning -Start Zyprexa 2.5 mg p.o. twice daily -Zyprexa 2.5 mg IV every 6 hours as needed for agitation -Continue gabapentin 300 mg p.o. 3 times daily -Hold diazepam 5 mg 3 times daily as needed -Patient may need retirement placement -Consult social work case manager -Contact [facility] during the day for further clarification of this evening's events that led to her being to the ED #Hypertension -Continue losartan 100 mg daily, metoprolol tartrate 25 mg every morning #Ambulatory dysfunction -Will hold off on PT/OT at this time. -Patient was discharged from [facility] and deemed okay to return home? but was brought into the hospital from transport. -Spoked to [facility] on 01/13, she has graduated from therapy and was cleared to go back home. Stated that patient was upset and wanted to stay at [facility] until her hip replacement though she has no surgery scheduled at this time. I personally examined the patient and verified all gilliam points of history and exam, discussed case, and agree with decision making with Dr Caceres she notes that whenever she got home the substance abuse clinician did not feel she was safe, but also she did not feel she was safe. Unclear if she felt like she was totally unsafe or if she just may be would be better off with more assistive equipment, but at any rate she did not feel safe going home right now. We discussed gently but frankly that she has burned a lot of bridges with facilities, and it might be difficult to get her somewhere that is willing to take her. I empathized that there are probably 2 sides to the story, but that regardless of that, or practical problem at hand is that she may require disposition and the burned bridges that she has been a part of might make it difficult to get her placed anywhere. She actually both this early recoiled from the thought of this but also seemed to express a good understanding of it and definitely understood that it was a problem. We will start with how she is doing with PT/OT and then try to build a plan from there.
[2023-01-13] MEDS: DULoxetine HCL 30 MG CAP PO SCH ×2 (10:30→22:41)
[2023-01-13] MEDS: ENOXAPARIN INJ 40 MG/0.4 ML SYR SQ SCH (10:30)
[2023-01-13] MEDS: GABAPENTIN 300 MG CAP PO SCH ×3 (10:32→22:41)
[2023-01-13] MEDS: LOSARTAN POTASSIUM 50 MG TAB PO SCH (10:32)
[2023-01-13] MEDS: OLANZAPINE 2.5 MG TAB PO SCH ×2 (10:33→22:41)
[2023-01-13] MEDS: METOPROLOL TARTRATE 25 MG TAB PO SCH (10:33)
[2023-01-13] MEDS: POLYETHYLENE (MIRALAX) 17 GM PACK PO SCH (10:34)
[2023-01-13] MEDS: ARTIFICIAL TEARS OP SCH ×2 (10:36→22:45)
--- NOTE | 2023-01-13 21:44 | Electrocardiogram Report ---
Test Reason : Blood Pressure : / mmHG Vent. Rate : 059 BPM Atrial Rate : 059 BPM P-R Int : 174 ms QRS Dur : 088 ms QT Int : 386 ms P-R-T Axes : 024 -16 029 degrees QTc Int : 382 ms Sinus bradycardia with sinus arrhythmia Minimal voltage criteria for LVH, may be normal variant ( Malik product ) Possible Anterior infarct (cited on or before 12-JAN-2023) Abnormal ECG When compared with ECG of 08-DEC-2022 17:11, Vent. rate has decreased BY 40 BPM Questionable change in initial forces of Anteroseptal leads Confirmed by Kurt White ([id number]) on 01/13/2023 9:44:10 PM Referred By: REFERRED SELF Confirmed By:Kurt White
[2023-01-13] MEDS: tiZANidine HCL 4 MG TABLET PO SCH (22:41)
[2023-01-13] MEDS: ACETAMINOPHEN 325 MG TAB PO PRN (22:44)
[2023-01-13 23:22] LABS: Appearance Urine Cloudy (Clear); Bacteria Urine Automated Negative (Negative); Bilirubin Urine Negative (Negative); Blood Urine Negative (Negative); Color Urine Yellow; Epithelial Cell Urine Auto 20-30 /lpf (0-5); Glucose Urine UA Negative (Negative); Ketones Urine Trace (Negative); Leukocyte Esterase Urine Negative (Negative); Nitrite Urine Negative (Negative); Protein Urine Negative (Negative); Specific Gravity Urine 1.014 (1.000-1.030); Urobilinogen Urine Negative (Negative); pH Urine 6.5 (4.5-7.5)
--- NOTE | 2023-01-14 06:53 | Hospitalist Progress Note ---
Date of Service January 14, 2023 Assessment & Plan (1) Dementia with agitation: (2) Ambulatory dysfunction: (3) Hypertension: Plan #Dementia with agitation/PTSD/anxiety with depression/adjustment disorder with mixed disturbance of emotions and conduct- -Continue duloxetine 30 mg p.o. twice daily stop paroxetine 40 mg every morning -Start Zyprexa 2.5 mg p.o. twice daily -Zyprexa 2.5 mg IV every 6 hours as needed for agitation -Continue gabapentin 300 mg p.o. 3 times daily -Hold diazepam 5 mg 3 times daily as needed -Patient may need jail placement -Case management consulted placed. #Hypertension -Continue losartan 100 mg daily, metoprolol tartrate 25 mg every morning #Ambulatory dysfunction -Patient was discharged from [facility] and deemed okay to return home? but was brought into the hospital from transport. -Spoked to [facility] on 01/13, she has graduated from therapy and was cleared to go back home. Stated that patient was upset and wanted to stay at [facility] until her hip replacement though she has no surgery scheduled at this time. -PT/OT ordered. Pending evaluation. Otherwise medically stable for discharge. Admission and Anticipated Discharge Date Admission Date: January 13, 2023 Supervising Physician Co-Signing Physician Notes I personally examined the patient and verified all gilliam points of history and exam, discussed case, and agree with decision making with Dr Morris galindo. awaiting PT input. vitals noted resting comfortably nad heent nc at mmm breathing unlabored no accessory muscles good effort weakness - PT/OT. dispo will be difficult if she can't go home. d/w pt on 01/13. hip DJD - outpt f/u Subjective Patient seen bedside this morning. States that she is not currently having any pain. Though she states that she has not been getting up and walking recently. She has not seen PT at this time. Denies any other issues or concerns at this time. Review of Systems Review of Systems: All systems reviewed & are unremarkable except as noted in Subjective Physical Exam Physical Exam: Constitutional: well-appearing, no acute distress HEENT: NCAT, no conjunctival injection CV: regular rhythm, no murmur appreciated, extremities well-perfused, no LE edema Resp: CTABL, no wheezes/rales/rhonchi appreciated, no increased work of breathing GI: soft, nondistended, nontender, BS normoactive MSK: no gross deformities appreciated Skin: warm, dry, no rash appreciated Neuro: alert, oriented, no focal neurologic deficit appreciated Results & Data Results & Data Vital Signs (Past 12 Hours) Vital Signs Temp Pulse Pulse Resp BP BP Pulse Ox 01/13/23 21:00 122/86 01/13/23 22:23 36.6 C 80 16 122/86 96 01/13/23 20:30 63 24 146/58 H 98 01/13/23 19:00 66 20 154/131 H 96 O2 Del Method 01/13/23 21:00 01/13/23 22:23 Room Air 01/13/23 20:30 01/13/23 19:00 Resident Activity Tracking Resident Involvement: Resident Care Provided Care Provided: Adult Hospital Medicine (3) Hypertension Hypertension type: unspecified Qualified Code(s): I10 - Essential (primary) hypertension
[2023-01-14] MEDS: DULoxetine HCL 30 MG CAP PO SCH ×2 (08:31→21:02)
[2023-01-14] MEDS: ENOXAPARIN INJ 40 MG/0.4 ML SYR SQ SCH (08:31)
[2023-01-14] MEDS: ARTIFICIAL TEARS OP SCH ×2 (08:31→21:04)
[2023-01-14] MEDS: GABAPENTIN 300 MG CAP PO SCH ×3 (08:31→21:02)
[2023-01-14] MEDS: METOPROLOL TARTRATE 25 MG TAB PO SCH (08:32)
[2023-01-14] MEDS: LOSARTAN POTASSIUM 50 MG TAB PO SCH (08:32)
[2023-01-14] MEDS: POLYETHYLENE (MIRALAX) 17 GM PACK PO SCH (08:33)
[2023-01-14] MEDS: OLANZAPINE 2.5 MG TAB PO SCH ×2 (08:33→21:02)
--- NOTE | 2023-01-14 18:55 | Billing Data ---
Date of Service January 14, 2023 Coding Level of Care Code 79403 SUB INP/OBS CARE
[2023-01-14] MEDS: tiZANidine HCL 4 MG TABLET PO SCH (21:01)
--- NOTE | 2023-01-15 07:36 | Hospitalist Progress Note ---
Date of Service January 15, 2023 Assessment & Plan (1) Dementia with agitation: (2) Ambulatory dysfunction: (3) Hypertension: (4) Osteoarthritis of right hip: Plan #Dementia with agitation/PTSD/anxiety with depression/adjustment disorder with mixed disturbance of emotions and conduct- -Continue duloxetine 30 mg p.o. twice daily stop paroxetine 40 mg every morning -Start Zyprexa 2.5 mg p.o. twice daily -Zyprexa 2.5 mg IV every 6 hours as needed for agitation -Continue gabapentin 300 mg p.o. 3 times daily -Hold diazepam 5 mg 3 times daily as needed -Case management consulted placed. #Hypertension -Continue losartan 100 mg daily, metoprolol tartrate 25 mg every morning #Severe osteoarthritis of right hip -Hip and pelvic x-ray on 12/08/22 showed severe osteoarthritis of the femoral head flattening of the right hip. -[place] [facility] [place] -Will have ortho see patient on 01/16. #Ambulatory dysfunction -Patient was discharged from [facility] and deemed okay to return home? but was brought into the hospital from transport. -Spoked to [facility] on 01/13, she has graduated from therapy and was cleared to go back home. Stated that patient was upset and wanted to stay at [facility] until her hip replacement though she has no surgery scheduled at this time. -PT/OT ordered. Recommend SNF. Admission and Anticipated Discharge Date Admission Date: January 13, 2023 Supervising Physician Co-Signing Physician Notes I personally examined the patient and verified all gilliam points of history and exam, discussed case, and agree with decision making with Dr Caceres Physically no new complaints. Discussed with patient that after discussion with on-call orthopedic surgery, while it is still exceedingly unlikely that she would be able to have what amounted to an elective total hip during this admission, given that she is here for ambulatory dysfunction largely driven by her hip DJD, it might be theoretically possiblebut orthopedic surgery on currently does not generally do hip surgeries. To that end, we discussed having orthopedic surgery see her in this coming week. Vitals noted, in general she is awake and alert pleasant no distress. HEENT normocephalic atraumatic mucous membranes moist. Breathing unlabored no accessory muscle use good effort. Skin shows no rashes no pallor or icterus. weakness - PT/OT. dispo will be difficult if she can't go home. Hip DJDlikely to be outpatient follow-up, but after discussion, will ask orthopedic surgery to see her inpatient, given that her ambulatory dysfunction is largely caused by her arthritic hip, and is the reason she has been unable to ambulate well enough to be safe at home. Discussed with patient is still exceedingly unlikely that anyone would be able to proceed with a HAI under the circumstances, but given that its not impossible, would at least get their opinion. Also reiterated discussions from 01/13 with patient, that while I am not here to do director of primary care work or determine who was right or wrong in different situations, and that there are often 2 sides to any dispute, the amount of behaviors reported from her by different teams caring for may make it more difficult for her to get the care she needs, and I asked her to please try to mitigate any disruptive/angry/hostile behaviors in the future. We did joke a little that it was oddly similar to a discussion i might have had with one of my daughters in timeout. (she has always been pleasant/cordial and calm with me). Subjective patient seen bedside this morning. She states that she is "peachy". Denies any issues or concerns at this time Review of Systems Review of Systems: All systems reviewed & are unremarkable except as noted in Subjective Physical Exam Physical Exam: Constitutional: well-appearing, no acute distress HEENT: NCAT, no conjunctival injection CV: regular rhythm, no murmur appreciated, extremities well-perfused, no LE edema Resp: CTABL, no wheezes/rales/rhonchi appreciated, no increased work of breathing GI: soft, nondistended, nontender, BS normoactive MSK: no gross deformities appreciated Skin: warm, dry, no rash appreciated Neuro: alert, oriented, no focal neurologic deficit appreciated Results & Data Results & Data Vital Signs (Past 12 Hours) Vital Signs Temp Pulse Resp BP Pulse Ox O2 Del Method 01/14/23 20:28 36.5 C 62 18 145/67 H 96 Room Air Resident Activity Tracking Resident Involvement: Resident Care Provided Care Provided: Adult Hospital Medicine (3) Hypertension Hypertension type: unspecified Qualified Code(s): I10 - Essential (primary) hypertension
[2023-01-15] MEDS: ENOXAPARIN INJ 40 MG/0.4 ML SYR SQ SCH (08:25)
[2023-01-15] MEDS: POLYETHYLENE (MIRALAX) 17 GM PACK PO SCH (08:25)
[2023-01-15] MEDS: LOSARTAN POTASSIUM 50 MG TAB PO SCH (08:26)
[2023-01-15] MEDS: METOPROLOL TARTRATE 25 MG TAB PO SCH (08:26)
[2023-01-15] MEDS: DULoxetine HCL 30 MG CAP PO SCH ×2 (08:26→20:10)
[2023-01-15] MEDS: GABAPENTIN 300 MG CAP PO SCH ×3 (08:26→20:10)
[2023-01-15] MEDS: ARTIFICIAL TEARS OP SCH ×2 (08:26→20:09)
[2023-01-15] MEDS: OLANZAPINE 2.5 MG TAB PO SCH ×2 (08:26→20:10)
[2023-01-15] MEDS: tiZANidine HCL 4 MG TABLET PO SCH (20:11)
--- NOTE | 2023-01-15 20:24 | Billing Data ---
Date of Service January 15, 2023 Coding Level of Care Code 95879 SUB INP/OBS CARE
--- NOTE | 2023-01-16 07:06 | Hospitalist Progress Note ---
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 twice daily stop paroxetine 40 mg every morning -Start Zyprexa 2.5 mg p.o. twice daily -Zyprexa 2.5 mg IV every 6 hours as needed for agitation -Continue gabapentin 300 mg p.o. 3 times daily -Hold diazepam 5 mg 3 times daily as needed -Case management consulted placed. #Hypertension -Continue losartan 100 mg daily, metoprolol tartrate 25 mg every morning #Severe osteoarthritis of right hip -Hip and pelvic x-ray on 12/08/22 showed severe osteoarthritis of the femoral head flattening of the right hip. -Has seen Ortho at [facility] [place] previously. Fired from [facility] orthopedics. -Tylenol 650 mg every 4 hours as needed for pain -We will put in a Ortho consult to Dr. Kern on 01/16, he is not currently on service though physician on service cannot see patient given that she has been fired by their practice. Limited options on Ortho consults for patient. #Ambulatory dysfunction -Patient was discharged from [facility] and deemed okay to return home. -Spoked to [facility] on 01/13, she has graduated from therapy and was cleared to go back home. Stated that patient was upset and wanted to stay at [facility] until her hip replacement though she has no surgery scheduled at this time. -PT/OT ordered. Recommend SNF. DVT prophylaxis: Lovenox 40 mg every 24 hours Admission and Anticipated Discharge Date Admission Date: January 13, 2023 Supervising Physician Co-Signing Physician Notes Attending attestation Pt seen and examined in concert with Dr. Caceres. In agreement with the documented findings as noted in the resident documentation with any exceptions or additions as noted here. No acute complaints presently. On examination, S1/S2 nl RRR no MCG. CTAB. Abd NT/ND BS+ve Dementia with agitation in the setting of MDD, RODNEY, PTSD - continue duloxetine, gabapentin. Start Zyprexa 2.5mg BID. Ambulatory dysfunction w/ severe OA of the right hip - [facility] consult placed - continue APAP for pain control. PT/OT rec'd SNF. CM aware. Else see resident documentation as noted. Subjective Presented bedside this morning. No issues or concerns at this time. States that she is doing " okay" Review of Systems Review of Systems: All systems reviewed & are unremarkable except as noted in Subjective Physical Exam Physical Exam: Constitutional: well-appearing, no acute distress HEENT: NCAT, no conjunctival injection CV: regular rhythm, no murmur appreciated, extremities well-perfused, no LE edema Resp: CTABL, no wheezes/rales/rhonchi appreciated, no increased work of breathing GI: soft, nondistended, nontender, BS normoactive MSK: no gross deformities appreciated Skin: warm, dry, no rash appreciated Neuro: alert, oriented, no focal neurologic deficit appreciated Results & Data Results & Data Vital Signs (Past 12 Hours) Vital Signs Temp Pulse Resp BP Pulse Ox O2 Del Method 01/15/23 20:15 36.6 C 67 16 159/67 H 99 Room Air Resident Activity Tracking Resident Involvement: Resident Care Provided Care Provided: Adult Hospital Medicine (3) Hypertension Hypertension type: unspecified Qualified Code(s): I10 - Essential (primary) hypertension
[2023-01-16 08:06] LABS: Hematocrit (blood only) 32.4 % (37.0-47.0); Hemoglobin 10.5 g/dl (12.0-16.0); Mean Corpuscular Hemoglobin 28.5 pg (25.0-34.0); Mean Corpuscular Hgb Conc 32.4 g/dL (32.0-36.0); Mean Corpuscular Volume 87.8 fL (80.0-100.0); Mean Platelet Volume 10.5 fL (9.4-12.4); Platelet Count 262 K/uL (130-400); RDW Coefficient of Variation 13.2 % (11.5-14.5); RDW Standard Deviation 42.7 fL (36.4-46.3); Red Blood Count 3.69 M/uL (4.20-5.40)
[2023-01-16] MEDS: DULoxetine HCL 30 MG CAP PO SCH ×2 (08:07→21:54)
[2023-01-16] MEDS: METOPROLOL TARTRATE 25 MG TAB PO SCH (08:07)
[2023-01-16] MEDS: LOSARTAN POTASSIUM 50 MG TAB PO SCH (08:07)
[2023-01-16] MEDS: OLANZAPINE 2.5 MG TAB PO SCH ×2 (08:08→21:54)
[2023-01-16] MEDS: GABAPENTIN 300 MG CAP PO SCH ×3 (08:08→21:54)
[2023-01-16] MEDS: ARTIFICIAL TEARS OP SCH ×2 (08:09→21:54)
[2023-01-16] MEDS: ENOXAPARIN INJ 40 MG/0.4 ML SYR SQ SCH (08:09)
[2023-01-16] MEDS: POLYETHYLENE (MIRALAX) 17 GM PACK PO SCH (08:12)
[2023-01-16 08:27] LABS: BUN Creatinine Ratio 25.8 (10-20); Est GFR (African American) 70.4 ml/min; Est GFR (Non-African American) 60.8 ml/min; Magnesium 1.9 mg/dl (1.7-2.4); Potassium 4.3 mmol/L (3.5-5.1)
--- NOTE | 2023-01-16 17:18 | Communication Note ---
Date of Service: January 16, 2023 Mrs. Rios is an 83-year-old female admitted for ambulatory dysfunction as well as other medical issues. Patient has a history of severe DJD of her right hip. Patient is fairly debilitated and lives alone in an apartment of which is in [place]. Currently she states that she is still in the process of being evicted from this place but continues to fight this brandt with the apartment complex. The patient states that she ambulates minimally in her apartment and uses a wheelchair in her apartment as well. She has had some falls over the recent months and at one point had been admitted in the recent past for being found in the apartment confused and had fallen and was under her kitchen table. The patient had apparently seen [facility] orthopedics in the past but has been fired as a patient from that group. Patient then made an appointment to see Dr. Hopkins. He saw the patient in mid to late November. After seeing the patient, he noted that she does have a history of psychosocial issues and has no real support network whatsoever. With her apparent eviction from her current living situation, she has no long-term plans. She has minimal to no assistance available to her. It was noted she has an extensive psychiatric history as well as some comorbidities. She is also intolerant of certain medications. With these risk factors, he felt that it was extremely prohibitive to consider surgery. In speaking with the patient dang, she is very pleasant today. As we began discussing her history and her arthritis, I had mentioned Dr. Hopkins. At that point she held the conversation secondary to being confused about who she was going to be seeing. She states that Dr. Hopkins's office had called her and told her that he would not be doing her surgery for her right hip. She states that she then moved on and made an appointment with Dr. Kern in January of this year. She states that she was hoping that I was with Dr. Kern. She would like to see Dr. Kern for a second opinion. As noted above, Dr. Hopkins has decided not to perform surgery for this woman at this time. I will notify medicine service and let them know. I have also discussed this with the nursing charge nurse and she was going to reach out to Dr. Kern for consult for her right hip DJD.
[2023-01-16] MEDS: tiZANidine HCL 4 MG TABLET PO SCH (21:54)
--- NOTE | 2023-01-17 06:51 | Hospitalist Progress Note ---
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 twice daily stop paroxetine 40 mg every morning -Start Zyprexa 2.5 mg p.o. twice daily -Zyprexa 2.5 mg IV every 6 hours as needed for agitation -Continue gabapentin 300 mg p.o. 3 times daily -Hold diazepam 5 mg 3 times daily as needed -Case management consulted placed. #Hypertension -Continue losartan 100 mg daily, metoprolol tartrate 25 mg every morning #Severe osteoarthritis of right hip -Hip and pelvic x-ray on 12/08/22 showed severe osteoarthritis of the femoral head flattening of the right hip. -[place] seen [place]o [place] [facility]. Fired from [facility] orthopedics. -Tylenol 650 mg every 4 hours as needed for pain -We will put in a Ortho consult to Dr. Kern on 01/16, he is not currently on service though physician on service cannot see patient given that she has been fired by their practice. Limited options on Ortho consults for patient. -PA for Dr. Hopkins saw patient on 01/16, decline surgery. Waiting on meeting with Dr. Kern. #Ambulatory dysfunction -Patient was discharged from [facility] and deemed okay to return home. -Spoked to [facility] on 01/13, she has graduated from therapy and was cleared to go back home. Stated that patient was upset and wanted to stay at [facility] until her hip replacement though she has no surgery scheduled at this time. -PT/OT ordered. Recommend SNF. Pending. DVT prophylaxis: Lovenox 40 mg every 24 hours Admission and Anticipated Discharge Date Admission Date: January 13, 2023 Supervising Physician Co-Signing Physician Notes Attending attestation Pt seen and examined in concert with Dr. Caceres. In agreement with the documented findings as noted in the resident documentation with any exceptions or additions as noted here. No acute complaints presently. On examination, S1/S2 nl RRR no MCG. CTAB. Abd NT/ND BS+ve HTN - increase HTN control with metoprolol succinate in AM and additional metoprolol tartrate this afternoon Dementia with agitation in the setting of MDD, RODNEY, PTSD - continue duloxetine, gabapentin. Continue Zyprexa 2.5mg BID. Ambulatory dysfunction w/ severe OA of the right hip - [facility] consult placed - continue APAP for pain control. PT/OT rec'd SNF. CM aware. Else see resident documentation as noted. Subjective Patient was seen at bedside this morning. She has no issues or complaints at this time. States that she is doing well Review of Systems Review of Systems: All systems reviewed & are unremarkable except as noted in Subjective Physical Exam Physical Exam: Constitutional: well-appearing, no acute distress HEENT: NCAT, no conjunctival injection CV: regular rhythm, no murmur appreciated, extremities well-perfused, no LE edema Resp: CTABL, no wheezes/rales/rhonchi appreciated, no increased work of breathing GI: soft, nondistended, nontender, BS normoactive MSK: no gross deformities appreciated Skin: warm, dry, no rash appreciated Neuro: alert, oriented, no focal neurologic deficit appreciated Results & Data Results & Data Vital Signs (Past 12 Hours) Vital Signs Temp Pulse Resp BP BP Pulse Ox O2 Del Method 01/16/23 21:56 36.6 C 75 18 165/88 H 95 Room Air 01/16/23 19:24 36.8 C 67 16 138/75 98 Room Air Resident Activity Tracking Resident Involvement: Resident Care Provided Care Provided: Adult Hospital Medicine (3) Hypertension Hypertension type: unspecified Qualified Code(s): I10 - Essential (primary) hypertension
[2023-01-17] MEDS: OLANZAPINE 2.5 MG TAB PO SCH ×2 (08:11→20:13)
[2023-01-17] MEDS: ENOXAPARIN INJ 40 MG/0.4 ML SYR SQ SCH (08:11)
[2023-01-17] MEDS: GABAPENTIN 300 MG CAP PO SCH ×3 (08:11→20:13)
[2023-01-17] MEDS: DULoxetine HCL 30 MG CAP PO SCH ×2 (08:12→20:13)
[2023-01-17] MEDS: LOSARTAN POTASSIUM 50 MG TAB PO SCH (08:16)
[2023-01-17] MEDS: METOPROLOL TARTRATE 25 MG TAB PO SCH (08:16)
[2023-01-17] MEDS: ARTIFICIAL TEARS OP SCH ×2 (08:16→20:12)
[2023-01-17] MEDS: POLYETHYLENE (MIRALAX) 17 GM PACK PO SCH (08:25)
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
[2023-01-17] MEDS: ACETAMINOPHEN 325 MG TAB PO PRN (16:22)
[2023-01-17] MEDS: tiZANidine HCL 4 MG TABLET PO SCH (20:13)
[2023-01-17] MEDS ORDERED: METOPROLOL TARTRATE 25 MG TAB PO ONE (21:00)
[2023-01-18] MEDS: ENOXAPARIN INJ 40 MG/0.4 ML SYR SQ SCH (06:29)
--- NOTE | 2023-01-18 07:12 | Hospitalist Progress Note ---
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 twice daily stop paroxetine 40 mg every morning -Start Zyprexa 2.5 mg p.o. twice daily -Zyprexa 2.5 mg IV every 6 hours as needed for agitation -Continue gabapentin 300 mg p.o. 3 times daily -Hold diazepam 5 mg 3 times daily as needed -Case management consulted placed. #Hypertension -Continue losartan 100 mg daily, -Will Discontinue metoprolol tartrate 25 mg BID and do metoprolol succinate 25mg QAM. -We will continue monitoring blood pressure throughout admission. #Severe osteoarthritis of right hip -Hip and pelvic x-ray on 12/08/22 showed severe osteoarthritis of the femoral head flattening of the right hip. -Has seen Ortho at [facility] previously. Fired from [facility] orthopedics. -Tylenol 650 mg every 4 hours as needed for pain -We will put in a Ortho consult to Dr. Kern on 01/16, he is not currently on service though physician on service cannot see patient given that she has been fired by their practice. Limited options on Ortho consults for patient. -PA for Dr. Hopkins saw patient on 01/16, decline surgery. -Saw PA for Dr. Kern, can be discharged from an orthopedic standpoint and follow-up outpatient in January. #Ambulatory dysfunction -Patient was discharged from [facility] and deemed okay to return home. -Spoked to [facility] on 01/13, she has graduated from therapy and was cleared to go back home. Stated that patient was upset and wanted to stay at [facility] until her hip replacement though she has no surgery scheduled at this time. -No acute orthopedic needs warranted at this time. -PT/OT ordered. Recommend SNF. Pending placement. DVT prophylaxis: Lovenox 40 mg every 24 hours Admission and Anticipated Discharge Date Admission Date: January 13, 2023 Supervising Physician Co-Signing Physician Notes Attending attestation Pt seen and examined in concert with Dr. Caceres. In agreement with the documented findings as noted in the resident documentation with any exceptions or additions as noted here. No acute complaints presently. On examination, S1/S2 nl RRR no MCG. CTAB. Abd NT/ND BS+ve HTN - variable BP throughout the day, overall improved - continue metoprolol succinate 25mg, losartan 100mg. Consider addition of amlodipine vs. increase metoprolol in AM based on O/N BP. Dementia with agitation in the setting of MDD, RODNEY, PTSD - continue duloxetine, gabapentin. Continue Zyprexa 2.5mg BID. Ambulatory dysfunction w/ severe OA of the right hip - [facility] consult placed - continue APAP for pain control. PT/OT rec'd SNF. CM aware. Ortho to assess as outpatient. Else see resident documentation as noted. Subjective Patient is a bedside this morning. She states that she feels "same old, same old". Did discuss hip injections which she says that she had SI injections done in the past which did not help. She is overall feeling well and not complaining of any pain. States that the pain medications currently receiving for her hip pain are well controlling it. Review of Systems Review of Systems: All systems reviewed & are unremarkable except as noted in Subjective Physical Exam Physical Exam: Constitutional: well-appearing, no acute distress HEENT: NCAT, no conjunctival injection CV: regular rhythm, no murmur appreciated, extremities well-perfused, no LE edema Resp: CTABL, no wheezes/rales/rhonchi appreciated, no increased work of breathing GI: soft, nondistended, nontender, BS normoactive MSK: no gross deformities appreciated Skin: warm, dry, no rash appreciated Neuro: alert, oriented, no focal neurologic deficit appreciated Results & Data Results & Data Vital Signs (Past 12 Hours) Vital Signs Temp Pulse Resp BP Pulse Ox O2 Del Method 01/17/23 20:08 36.3 C L 64 15 110/46 L 96 Room Air Resident Activity Tracking Resident Involvement: Resident Care Provided Care Provided: Adult Hospital Medicine (3) Hypertension Hypertension type: unspecified Qualified Code(s): I10 - Essential (primary) hypertension
[2023-01-18 08:34] LABS: Hematocrit (blood only) 33.8 % (37.0-47.0); Hemoglobin 10.8 g/dl (12.0-16.0); Mean Corpuscular Hemoglobin 28.3 pg (25.0-34.0); Mean Corpuscular Volume 88.5 fL (80.0-100.0); Mean Platelet Volume 10.8 fL (9.4-12.4); Platelet Count 279 K/uL (130-400); RDW Coefficient of Variation 13.2 % (11.5-14.5); RDW Standard Deviation 43.1 fL (36.4-46.3); Red Blood Count 3.82 M/uL (4.20-5.40); White Blood Count 5.62 K/ul (4.8-10.8)
[2023-01-18 08:38] LABS: BUN Creatinine Ratio 19.1 (10-20); Calcium 10.1 mg/dl (8.6-10.3); Creatinine Clr Calc Pharmacy 38.8 ml/min; Est GFR (African American) 65.9 ml/min; Est GFR (Non-African American) 56.9 ml/min; Potassium 4.2 mmol/L (3.5-5.1)
[2023-01-18] MEDS: ARTIFICIAL TEARS OP SCH ×2 (10:04→20:37)
[2023-01-18] MEDS: LOSARTAN POTASSIUM 50 MG TAB PO SCH (10:05)
[2023-01-18] MEDS: OLANZAPINE 2.5 MG TAB PO SCH ×2 (10:06→20:40)
[2023-01-18] MEDS: DULoxetine HCL 30 MG CAP PO SCH ×2 (10:06→20:38)
[2023-01-18] MEDS: GABAPENTIN 300 MG CAP PO SCH ×3 (10:06→20:40)
[2023-01-18] MEDS: POLYETHYLENE (MIRALAX) 17 GM PACK PO SCH (10:15)
[2023-01-18] MEDS: METOPROLOL SUCC 25MG EXT REL TAB PO SCH (11:04)
[2023-01-18] MEDS: ACETAMINOPHEN 325 MG TAB PO PRN (15:35)
[2023-01-18] MEDS: tiZANidine HCL 4 MG TABLET PO SCH (20:38)
--- NOTE | 2023-01-19 07:44 | Hospitalist Progress Note ---
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 twice daily stop paroxetine 40 mg every morning -Start Zyprexa 2.5 mg p.o. twice daily -Zyprexa 2.5 mg IV every 6 hours as needed for agitation -Continue gabapentin 300 mg p.o. 3 times daily -Hold diazepam 5 mg 3 times daily as needed -Case management consulted placed. -Patient request Valium, will hold off on treatment as she is on Zyprexa. Reminded patient that if she is feeling anxious and having trouble sleeping she can try her as needed Zyprexa. #Hypertension -Continue losartan 100 mg daily, -Will Discontinue metoprolol tartrate 25 mg BID and do metoprolol succinate 25mg QAM. -We will add on amlodipine 2.5 mg every morning due to blood pressure not being well controlled 20 minutes. -Continue to monitor while admitted to the hospital. #Severe osteoarthritis of right hip -Hip and pelvic x-ray on 12/08/22 showed severe osteoarthritis of the femoral head flattening of the right hip. -Has seen Ortho at [facility] previously. Fired from [facility] orthopedics. -Tylenol 650 mg every 4 hours as needed for pain -We will put in a Ortho consult to Dr. Kern on 01/16, he is not currently on service though physician on service cannot see patient given that she has been fired by their practice. Limited options on Ortho consults for patient. -PA for Dr. Hopkins saw patient on 01/16, decline surgery. -Saw PA for Dr. Kern, can be discharged from an orthopedic standpoint and follow-up outpatient in January. -Continue with PT while admitted to the hospital. #Ambulatory dysfunction -Patient was discharged from [facility] and deemed okay to return home. -Spoked to [facility] on 01/13, she has graduated from therapy and was cleared to go back home. Stated that patient was upset and wanted to stay at [facility] until her hip replacement though she has no surgery scheduled at this time. -No acute orthopedic needs warranted at this time. -PT/OT ordered. Recommend SNF. Pending placement. Unable to go to any [facility] establishments. Referrals put in for [facility]. DVT prophylaxis: Lovenox 40 mg every 24 hours Admission and Anticipated Discharge Date Admission Date: January 13, 2023 Supervising Physician Co-Signing Physician Notes Attending attestation Pt seen and examined in concert with Dr. Caceres. In agreement with the documented findings as noted in the resident documentation with any exceptions or additions as noted here. No acute complaints presently. On examination, S1/S2 nl RRR no MCG. CTAB. Abd NT/ND BS+ve HTN - variable BP throughout the day, overall improved - continue metoprolol succinate 25mg, losartan 100mg. Consider addition of amlodipine vs. increase metoprolol in AM based on O/N BP. Dementia with agitation in the setting of MDD, RODNEY, PTSD - continue duloxetine, gabapentin. Continue Zyprexa 2.5mg BID. Ambulatory dysfunction w/ severe OA of the right hip - [facility] consult placed - continue APAP for pain control. PT/OT rec'd SNF. CM aware. Ortho to assess as outpatient. Else see resident documentation as noted. Subjective Patient was seen bedside this morning. States that she had trouble sleeping overnight. She wants to have her Valium. She is also worried about getting the mail from her house. She has no friends or family in the area able to get it for her. She becomes very tearful when talking about having friends or family in the area. States that her pain is well managed at this time though she has not been getting up much to walk. Review of Systems Review of Systems: All systems reviewed & are unremarkable except as noted in Subjective Physical Exam Physical Exam: Constitutional: well-appearing, tearful HEENT: NCAT, no conjunctival injection CV: regular rhythm, no murmur appreciated, extremities well-perfused, no LE edema Resp: CTABL, no wheezes/rales/rhonchi appreciated, no increased work of breathing GI: soft, nondistended, nontender, BS normoactive MSK: no gross deformities appreciated Skin: warm, dry, no rash appreciated Neuro: alert, oriented, no focal neurologic deficit appreciated Results & Data Results & Data Vital Signs (Past 12 Hours) Vital Signs Temp Pulse Resp BP Pulse Ox O2 Del Method 01/18/23 20:00 36.8 C 78 18 154/67 H 96 Room Air Resident Activity Tracking Resident Involvement: Resident Care Provided Care Provided: Adult Hospital Medicine (3) Hypertension Hypertension type: unspecified Qualified Code(s): I10 - Essential (primary) hypertension
[2023-01-19 07:56] LABS: Hematocrit (blood only) 35.4 % (37.0-47.0); Hemoglobin 11.4 g/dl (12.0-16.0); Mean Corpuscular Hgb Conc 32.2 g/dL (32.0-36.0); Mean Platelet Volume 10.3 fL (9.4-12.4); Platelet Count 290 K/uL (130-400); RDW Coefficient of Variation 13.1 % (11.5-14.5); RDW Standard Deviation 41.4 fL (36.4-46.3); Red Blood Count 4.07 M/uL (4.20-5.40); White Blood Count 6.61 K/ul (4.8-10.8)
[2023-01-19 08:15] LABS: BUN Creatinine Ratio 19.8 (10-20); Calcium 10.2 mg/dl (8.6-10.3); Creatinine Clr Calc Pharmacy 45.1 ml/min; Est GFR (African American) 78.9 ml/min; Est GFR (Non-African American) 68.1 ml/min; Potassium 4.7 mmol/L (3.5-5.1)
[2023-01-19] MEDS: METOPROLOL SUCC 25MG EXT REL TAB PO SCH (10:05)
[2023-01-19] MEDS: DULoxetine HCL 30 MG CAP PO SCH ×2 (10:06→20:00)
[2023-01-19] MEDS: ENOXAPARIN INJ 40 MG/0.4 ML SYR SQ SCH (10:06)
[2023-01-19] MEDS: LOSARTAN POTASSIUM 50 MG TAB PO SCH (10:06)
[2023-01-19] MEDS: GABAPENTIN 300 MG CAP PO SCH ×3 (10:06→20:00)
[2023-01-19] MEDS: ARTIFICIAL TEARS OP SCH ×2 (10:07→19:58)
[2023-01-19] MEDS: OLANZAPINE 2.5 MG TAB PO SCH ×2 (10:08→20:00)
[2023-01-19] MEDS: POLYETHYLENE (MIRALAX) 17 GM PACK PO SCH (10:15)
[2023-01-19] MEDS ORDERED: amLODIPine BESYLATE 5 MG TAB PO ONE (10:28)
[2023-01-19] MEDS: tiZANidine HCL 4 MG TABLET PO SCH (19:59)
--- NOTE | 2023-01-20 07:21 | Hospitalist Progress Note ---
Date of Service January 20, 2023 Assessment & Plan (1) Dementia with agitation: (2) Ambulatory dysfunction: (3) Hypertension: (4) Osteoarthritis of right hip: Plan #Dementia with agitation/PTSD/anxiety with depression/adjustment disorder with mixed disturbance of emotions and conduct- -Continue duloxetine 30 mg p.o. twice daily stop paroxetine 40 mg every morning -Start Zyprexa 2.5 mg p.o. twice daily -Zyprexa 2.5 mg IV every 6 hours as needed for agitation -Continue gabapentin 300 mg p.o. 3 times daily -Hold diazepam 5 mg 3 times daily as needed. Held due to being on Zyprexa. -Case management consulted placed. #Hypertension -Continue losartan 100 mg daily, -Will Discontinue metoprolol tartrate 25 mg BID and do metoprolol succinate 25mg QAM. -We will add on amlodipine 2.5 mg every morning due to blood pressure not being well controlled. -Continue to monitor while admitted to the hospital. #Severe osteoarthritis of right hip -Hip and pelvic x-ray on 12/08/22 showed severe osteoarthritis of the femoral head flattening of the right hip. -Has seen Ortho at [facility] previously. Fired from [facility] orthopedics. -Tylenol 650 mg every 4 hours as needed for pain -Orthopedics consulted: -PA for Dr. Hopkins saw patient on 01/16, decline surgery. -Saw PA for Dr. Kern, can be discharged from an orthopedic standpoint and follow-up outpatient in January. -Will see Dr. Kern on 01/20, patient will most likely need to have surgical intervention at [facility] or [facility] due to issues with rehab placement afterwards. -Continue with PT while admitted to the hospital. #Ambulatory dysfunction -Patient was discharged from [facility] and deemed okay to return home. -Spoked to [facility] on 01/13, she has graduated from therapy and was cleared to go back home. Stated that patient was upset and wanted to stay at [facility] until her hip replacement though she has no surgery scheduled at this time. -No acute orthopedic needs warranted at this time. -PT/OT ordered. Recommend SNF. Pending placement. Unable to go to any [place] establishments. [facility]errals put in [facility], waiting on [facility]. DVT prophylaxis: Lovenox 40 mg every 24 hours Admission and Anticipated Discharge Date Admission Date: January 13, 2023 Supervising Physician Co-Signing Physician Notes I also saw the patient with the resident physician and confirmed gilliam portions of the history and physical examination. On our midmorning exam, the patient was without complaints. She has some questions about her medications which were reviewed and answered. Exam 134/72, 66, 16, 36.4, 93% on room air Alert and oriented. Heart regular Respirations nonlabored Impression and plan I agree with the impression and plan as noted in the resident documentation above. Blood pressures are acceptable; continue current medications Noted history of agitation in the setting of dementia and major depression/anxiety; continue current medications. Dysfunction secondary to end-stage osteoarthritis, right hip; orthopedic consultation appreciated; pain control acceptable at present. Else see resident documentation as noted. Subjective Patient was seen bedside this morning. She was able to sleep last night. States that she feels better today than she did yesterday. She states that she is ready to go to rehab and wants to go somewhere soon. Review of Systems Review of Systems: All systems reviewed & are unremarkable except as noted in Subjective Physical Exam Physical Exam: Constitutional: well-appearing, tearful HEENT: NCAT, no conjunctival injection CV: regular rhythm, no murmur appreciated, extremities well-perfused, no LE edema Resp: CTABL, no wheezes/rales/rhonchi appreciated, no increased work of breathing GI: soft, nondistended, nontender, BS normoactive MSK: no gross deformities appreciated Skin: warm, dry, no rash appreciated Neuro: alert, oriented, no focal neurologic deficit appreciated Results & Data Results & Data Vital Signs (Past 12 Hours) Vital Signs Temp Pulse Resp BP BP Pulse Ox O2 Del Method 01/20/23 07:16 36.8 C 68 16 199/75 H 94 Room Air 01/19/23 19:27 36.9 C 66 18 127/42 L 94 Room Air Resident Activity Tracking Resident Involvement: Resident Care Provided Care Provided: Adult Hospital Medicine (3) Hypertension Hypertension type: unspecified Qualified Code(s): I10 - Essential (primary) hypertension
[2023-01-20] MEDS: ARTIFICIAL TEARS OP SCH ×2 (08:32→19:56)
[2023-01-20] MEDS: ENOXAPARIN INJ 40 MG/0.4 ML SYR SQ SCH (08:33)
[2023-01-20] MEDS: LOSARTAN POTASSIUM 50 MG TAB PO SCH (08:35)
[2023-01-20] MEDS: OLANZAPINE 2.5 MG TAB PO SCH ×2 (08:35→19:55)
[2023-01-20] MEDS: METOPROLOL SUCC 25MG EXT REL TAB PO SCH (08:36)
[2023-01-20] MEDS: GABAPENTIN 300 MG CAP PO SCH ×3 (08:36→19:56)
[2023-01-20] MEDS: DULoxetine HCL 30 MG CAP PO SCH ×2 (08:36→19:56)
[2023-01-20] MEDS: amLODIPine BESYLATE 5 MG TAB PO SCH (08:37)
[2023-01-20] MEDS: POLYETHYLENE (MIRALAX) 17 GM PACK PO SCH (08:46)
--- NOTE | 2023-01-20 15:22 | Orthopedic Progress Note ---
Date of Service January 20, 2023 Assessment & Plan (1) Osteoarthritis of right hip: I spoke with Laurel at bedside. I also called the housing case manager and spoke to her. Laurel ultimately needs a right hip replacement, unfortunately, placement afterwards is very difficult. She has disqualified herself from being accepted to any of the nursing homes in [facility]. [facility] does not have a transitional care unit so I would not be able to do her hip replacement at [facility] due to the fact that we would not be able to find placement for her afterwards. I do recommend follow-up at either [facility], or [place] for hip replacement surgery. She will likely need to stay in a transitional care unit postoperatively. I discussed this with her at bedside and she understands. Shireen Barragan was seen and examined at bedside this morning. She was sitting up in a chair. She was just seen by case management. She still having a lot of pain in her right hip. Unfortunately case management is having a difficult time finding a nursing facility that will accept her.. Review of Systems All systems reviewed & are unremarkable except as noted in HPI & below. Physical Exam Physical examination of the right hip shows she still has pain with internal and external rotation.. Results & Data Results & Data Laboratory Results . Diagnostic Findings . PG Care Time/CCT Total # of Minutes Spent Total Time Spent with Patient: Total time spent is greater than 50% in coordination of care (as documented) at patient's floor/unit and/or counseling patient: Coding Level of Care Code 43062 Post Operative Follow-Up Diagnoses Osteoarthritis of right hip M16.11
[2023-01-20] MEDS: tiZANidine HCL 4 MG TABLET PO SCH (19:55)
[2023-01-20] MEDS: ACETAMINOPHEN 325 MG TAB PO PRN (21:46)
[2023-01-21 07:42] LABS: Hematocrit (blood only) 32.7 % (37.0-47.0); Hemoglobin 10.8 g/dl (12.0-16.0); Mean Corpuscular Hemoglobin 28.5 pg (25.0-34.0); Mean Corpuscular Volume 86.3 fL (80.0-100.0); Mean Platelet Volume 10.3 fL (9.4-12.4); Platelet Count 273 K/uL (130-400); RDW Coefficient of Variation 13.1 % (11.5-14.5); RDW Standard Deviation 41.4 fL (36.4-46.3); Red Blood Count 3.79 M/uL (4.20-5.40); White Blood Count 6.12 K/ul (4.8-10.8)
[2023-01-21] MEDS: ENOXAPARIN INJ 40 MG/0.4 ML SYR SQ SCH (08:01)
[2023-01-21] MEDS: ARTIFICIAL TEARS OP SCH (08:01)
[2023-01-21 08:22] LABS: Calcium 10.2 mg/dl (8.6-10.3); Creatinine Clr Calc Pharmacy 39.7 ml/min; Est GFR (African American) 67.7 ml/min; Est GFR (Non-African American) 58.4 ml/min; Potassium 4.3 mmol/L (3.5-5.1)
[2023-01-21] MEDS: LOSARTAN POTASSIUM 50 MG TAB PO SCH (08:24)
[2023-01-21] MEDS: GABAPENTIN 300 MG CAP PO SCH (08:24)
[2023-01-21] MEDS: DULoxetine HCL 30 MG CAP PO SCH (08:24)
[2023-01-21] MEDS: METOPROLOL SUCC 25MG EXT REL TAB PO SCH (08:25)
[2023-01-21] MEDS: amLODIPine BESYLATE 5 MG TAB PO SCH (08:25)
[2023-01-21] MEDS: OLANZAPINE 2.5 MG TAB PO SCH (08:26)
[2023-01-21] MEDS: POLYETHYLENE (MIRALAX) 17 GM PACK PO SCH (08:29)
--- NOTE | 2023-01-21 10:51 | Discharge Summary ---
Date of Service January 21, 2023 Admission HPI Per Admitting Provider The patient is an 83-year-old female with a past medical history including urinary incontinence, COVID-19 infection, adjustment disorder with mixed disturbance of emotions and conduct, chronic hip pain, ambulatory dysfunction, posttraumatic stress disorder, anxiety with depression, hypertension, CKD and agitation. The patient had been most recently admitted to [facility] from 12/08-12/19/2022 for chronic hip pain, ambulatory dysfunction, confusion and agitation. She initially been discharged to [facility], however, did not like a day when she got there, and arrangements are made for her to be admitted to [facility]. Patient was discharged from [facility] this afternoon, and as noted above, transport felt that she would not safe to be living alone at home, their pattern chain maker supervisor then recommended the patient be returned to the hospital emergency department, for fdc placement. Multiple messages were left by manager case for [facility], to see if there was some type of plan of care where the patient wants to have someone at home helping her, however, return of page had not yet occurred by the time of admission. Admission Exam Per Admitting Provider The patient is now sleeping, after being agitated and yelling at and hitting the nurses. Normocephalic and atraumatic, lying in bed and in no acute distress. HEENT--PERRL, EOMI, mucous membranes and oropharynx mildly dry Neck--supple. No JVD. No bruits. Thyroid normal, trachea midline, no adenopathy. Heart--normal S1 and S2. No murmurs, rubs or gallops. Lungs--clear bilaterally, no respiratory distress, no accessory muscle use. Abdomen--normal bowel sounds and soft. Nontender. Nondistended Extremities--no cyanosis or clubbing. No edema. Dermatologic--normal skin turgor, normal color, no abnormal lymph nodes, no rash. Neurologic--cranial nerves II through XII grossly intact. Rheumatologic--limited exam Psychiatric--sleeping after being agitated as above. Principal Diagnosis dementia with agitation, failure to thrive, right hip osteoarthritis Discharge Exam Constitutional: well appearing, no acute distress HEENT: normocephalic, no conjunctival injection, erythematous/dry eye lids bilaterally CV: clinically well perfused, no LE edema Respiratory: No increased work of breathing MSK: no gross deformities noted Skin: warm, dry, no rashes Neuro: alert, oriented, no FND noted Discharge Data Allergies Allergy/AdvReac Type Severity Reaction Status Date / Time sulfamethoxazole Allergy Unknown Unknown Verified 12/08/22 18:57 [From Bactrim] trimethoprim [From Bactrim] Allergy Unknown Unknown Verified 12/08/22 18:57 prednisone AdvReac Severe TROUBLE Verified 11/10/22 14:48 WITH BLADDER CONTROL gluten AdvReac Intermediate Gastrointestinal Verified 11/10/22 14:48 Upset lactose AdvReac Intermediate Gastrointestinal Verified 11/10/22 14:48 Upset Consultations 01/13/23 04:34 ED Decision to Admit Stat 01/16/23 09:14 Consult Orthopedic Surgery Routine Hospital Course (1) Dementia with agitation: (2) Ambulatory dysfunction: (3) Hypertension: (4) Osteoarthritis of right hip: Plan Pt is a 83 yo female with PMH of right hip osteoarthritis, dementia with agitation, osteoporosis, IBS, PTSD, CKD, and HTN presenting to the hospital after discharge from rehab d/t being too weak/unable to function independently at home. Dementia with agitation/PTSD/anxiety with depression/adjustment disorder with m ixed disturbance of emotions and conduct -Continue duloxetine 30 mg p.o. twice daily; stop paroxetine 40 mg every morning -Continue Zyprexa 2.5 mg p.o. twice daily -Continue gabapentin 300 mg p.o. 3 times daily -Stop diazepam 5 mg (due to being on Zyprexa) Hypertension -Continue losartan 100 mg daily -Discontinue metoprolol tartrate 25 mg BID; continue with metoprolol succinate 25mg qAM -Continue amlodipine 2.5 mg qAM (added this hospitalization) Severe osteoarthritis of right hip -Hip and pelvic x-ray on 12/08/22 showed severe osteoarthritis of the femoral head flattening of the right hip. -Has seen ortho [place] [facility] [place]; discharged from [facility] orthopedics -Continue Tylenol 650 mg every 4 hours as needed for pain -Orthopedics consulted: -PA for Dr. Hopkins saw patient on 01/16; declined surgical intervention -Dr. Kern evaluated pt on 01/20; patient will need to have surgical intervention at [facility] or [facility] due to issues with rehab placement afterwards -Continue with PT as available/able Ambulatory dysfunction -Patient was discharged from [facility] and deemed okay to return home. -Spoked to [facility] on 01/13, she has graduated from therapy and was cleared to go back home.Stated that patient was upset and wanted to stay at [facility] until her hip replacement though she had no surgery scheduled at that time. -No acute orthopedic needs warranted at this time. -PT/OT evaluated pt; recommend SNF. Discharge to [facility] Total Time Total Time Spent Total Time Spent (In Minutes): I spent 25 minutes seeing the patient, reviewing data, and documenting Discharge Plan Discharge Items Patient Disposition: Transfer Senior Living Fac Reason For Visit: DEMENTIA WITH AGITATIONS, HALFWAY PLACEMENT Discharge Diagnosis: dementia with agitation, failure to thrive Activity: Per Instructions section Non-emergency contact: Primary Care Provider and Surgeon Call non-emergency contact if: you have any medication questions, your symptoms worsen and your pain is unusual for you Follow-up/Referrals: Trudy Junior DO [Primary Care Provider] - Diet: Gluten Free, Heart Healthy and Lactose Intolerant Addtl Attending Provider Instructions: Pt is a 83 yo female with PMH of right hip osteoarthritis, dementia with agitation, osteoporosis, IBS, PTSD, CKD, and HTN presenting to the hospital after discharge from rehab d/t being too weak/unable to function independently at home. Dementia with agitation/PTSD/anxiety with depression/adjustment disorder with mixed disturbance of emotions and conduct -Continue duloxetine 30 mg p.o. twice daily; stop paroxetine 40 mg every morning -Continue Zyprexa 2.5 mg p.o. twice daily -Continue gabapentin 300 mg p.o. 3 times daily -Continue to hold diazepam 5 mg 3 times daily as needed (held due to being on Zyprexa) Hypertension -Continue losartan 100 mg daily -Discontinue metoprolol tartrate 25 mg BID; continue with metoprolol succinate 25mg qAM -Continue amlodipine 2.5 mg qAM (added this hospitalization) Severe osteoarthritis of right hip -Hip and pelvic x-ray on 12/08/22 showed severe osteoarthritis of the femoral head flattening of the right hip. -Has seen ortho at [facility] previously; discharged from [facility] orthopedics -Continue Tylenol 650 mg every 4 hours as needed for pain -Orthopedics consulted: -PA for Dr. Hopkins saw patient on 01/16; declined surgical intervention -Dr. Kern evaluated pt on 01/20; patient will need to have surgical intervention at [facility] or [facility] due to issues with rehab placement a [place]terwards -Continue with PT as available/able Ambulatory dysfunction -Patient was discharged from [facility] and deemed okay to return home. -Spoked to [facility] on 01/13, she has graduated from therapy and was cleared to go back home.Stated that patient was upset and wanted to stay at [facility] until her hip replacement though she had no surgery scheduled at that time. -No acute orthopedic needs warranted at this time. -PT/OT evaluated pt; recommend SNF. Discharge to [facility] Pending Studies at Discharge: No Stand-Alone Forms: My [facility] Skilled Items Patient informed of condition?: Yes DNR: Yes Discharge Level of Care: Skilled Communicable Disease: No Discharge Prognosis: Stable Lines: None Urinary Catheter: No Medications and DC Order Prescriptions: New amlodipine [Norvasc] 5 mg Tablet 2.5 mg PO QAM Qty: 30 0RF olanzapine 2.5 mg Tablet 2.5 mg PO BID Qty: 60 0RF metoprolol succinate 25 mg Tablet Extended Release 24 Hr 25 mg PO QAM Qty: 30 0RF Continued gabapentin 300 mg capsule See Rx Instructions PO .COMPLEX Qty: 90 0RF Rx Instructions: take 1 tablet twice a day for 1 week then increase to 1 tablet three times a day orally; ok to dispense tablets Qbrexza 2.4 % towelette 1 applic topical DAILY Qty: 30 3RF Rx Instructions: Apply to each underarm not more frequently than once every 24 hours cholecalciferol (vitamin D3) 50 mcg (2,000 unit) capsule 50 mcg PO DAILY triamcinolone acetonide 0.1 % ointment 1 applic topical BID Qty: 80 2RF losartan 100 mg tablet 100 mg PO DAILY Patient Comments: CONFIRMED ON [facility] DC SUMMARY 11/30 polyethylene glycol 3350 [Miralax] 17 gram/dose Powder 1 dose PO QAM cyclosporine [Restasis] 0.05 % Dropperette 1 drp OPHTHALMIC (EYE) Q12H duloxetine 30 mg Capsule,Delayed Release(Dr/Ec) 30 mg PO BID red yeast rice 600 mg capsule 1,200 mg PO QAM tizanidine [Zanaflex] 4 mg capsule 2 mg PO HS Hold Instructions: Hold due to frequent falls peppermint oil Oil 1 applic TOPICAL DIRECTED PRN (Reason: Pain) psyllium husk 3 gram/5.4 gram Powder 1 tbsp PO HS apple cider vinegar 500 mg tablet 500 mg PO DAILY calcium carbonate [Calcium 600] 600 mg calcium (1,500 mg) Tablet 600 mg PO DAILY diclofenac sodium [Voltaren Arthritis Pain] 1 % gel 2 g topical QID PRN (Reason: pain) Qty: 100 4RF Rx Instructions: apply to right hip and leg Discontinued diazepam 5 mg Tablet 5 mg PO TID PRN (Reason: Anxiety) paroxetine HCl [Paxil] 40 mg Tablet 40 mg PO QAM metoprolol tartrate 25 mg Tablet 25 mg PO QAM Qty: 30 0RF Discharge Orders: Discharge Order (Routine); Ordered 01/21/23 Ordered By: Jackelyn Heredia Admission Data Admit Date/Time: 01/13/23 05:16 Attending Provider: Kostas Shaw Admit Provider: Rustam Webster Primary Care Provider: Trudy Junior Other Providers: Rustam Webster; [place]; Carter Kern Other Interventions: Discharge Summary Assessment (RN) Last Done: 01/21/23 10:11 Supervising Physician Co-Signing Physician Notes I also saw the patient with the resident physician and confirmed gilliam portions of the history and physical examination. Patient without complaints this morning. We discussed her transfer today to a facility in [place]. She seemed pleased with this. Exam 171/76, 88, 16, 36.4, 96% on room air Alert and oriented. Heart regular Respirations nonlabored Impression and plan I agree with the impression and plan as noted in the resident documentation above. Blood pressures are generally acceptable, although slightly elevated this morning. She did have some anxiety regarding the transfer today. C Noted history of agitation in the setting of dementia and major depression/anxiety; continue current medications. Dysfunction secondary to end-stage osteoarthritis, right hip; orthopedic consultation appreciated; pain control acceptable at present. Additional per resident documentation. Resident Activity Tracking Resident Involvement: Resident Care Provided Care Provided: Adult Hospital Medicine
== END 2023-01-21 10:50 | DRG 884 ==
LOC: ED 18:25 → SUATTDRO 01-13 05:16 → EDINP 01-13 05:16 → 3W 01-13 21:28

== ENCOUNTER 2023-02-14 12:22 | Observation (INO) ==
--- NOTE | 2023-02-14 12:35 | Emergency Department Note ---
Impression & Plan Stercoral colitis, Stage 1 skin ulcer of sacral region, Constipation, Fecal incontinence ED Provider Note CHIEF COMPLAINT: Buttocks cyst HISTORY OF PRESENTING ILLNESS: This 83-year-old female patient presents to the emergency department via EMS from her doctor's office for evaluation of a buttocks cyst. The patient states "I have a cyst in my ass." The patient apparently had an outpatient appointment today and refused to leave on her own to go to the ER so EMS was called. The cyst has been present for the past 3 days. Initially the patient thought it was a hemorrhoid. Having trouble sitting because of the pain. Has been having problems with fecal incontinence with the symptoms. Try to do a sitz bath and use witch abilio without improvement. The patient also tried hemorrhoid suppositories without improvement. The patient is also in the process of being scheduled with [facility] for right hip surgery. She is having trouble taking care of herself at home because of her decreased mobility from the right hip pain and decreased mobility. She is working on getting a wheelchair and has someone to help clean her house, but does not have any nursing assistance. Per the patient's PCP office visit note from today, the patient was seen for fecal incontinence and worsening sacral wound with pus drainage. The patient apparently has difficulty caring for self at home. The patient was referred to the ER for possible imaging and blood work to see how extensive the wound was. REVIEW OF SYSTEMS: See HPI for pertinent positives and pertinent negatives. ALLERGIES: Bactrim, Prednisone, gluten, lactose MEDICATIONS: See below PAST MEDICAL HISTORY: See below PHYSICAL EXAM: VITALS: Vitals are noted on the nurse's note and reviewed by myself. GENERAL: Non toxic, no acute distress, non-diaphoretic. SKIN: There is erythema and edema around the rectal area and sacrum, but no obvious pointing, fluctuance, or discharge on exam. However, the exam was somewhat difficult as the patient continues to have fecal incontinence during my exam. The patient is tender to palpation in this area. Capillary refill <2 sec. EYES: PERRLA. EOMI. Conjunctivae without injection, sclerae without icterus. NOSE: Patent without discharge. MOUTH: Mucous membranes moist. Uvula midline. Airway patent. NECK: Supple without nuchal rigidity. HEART: Regular rate and rhythm without murmurs gallops or rubs. LUNGS: Clear to auscultation bilaterally without wheezes, rales or rhonchi. No retractions or accessory muscle use. ABDOMEN: Positive bowel sounds x 4. Normal tympanic percussion. Soft, minimal tenderness to palpation in the suprapubic area. No masses or organomegaly. Rhodes sign negative. No guarding or rebound tenderness. No focal RLQ or LLQ tenderness. MUSCULOSKELETAL: The patient has tenderness to palpation of the right hip and groin and decreased range of motion of the right hip from her known right hip abnormality requiring surgery. RECTAL: Permission to perform the exam. Operator Catalyst Concentration was present in the room during the exam. The patient has decreased rectal tone on exam. See skin exam as above. The patient has active fecal incontinence during my exam. She does have stool felt within the rectal vault, but no fecal impaction. No obvious enlarged external or internal hemorrhoids. No evidence for thrombosed hemorrhoid. No obvious masses, fissures, or fistulas noted. Stool is brown and Hemoccult was negative. NEURO: Patient was alert and oriented. No focal neurological deficits. DIFFERENTIAL DIAGNOSIS: Differential diagnosis includes rectal abscess, perirectal abscess, buttocks abscess, cellulitis, intra-abdominal abscess, constipation, fecal incontinence, spinal abscess, spinal cord abnormality, pyelonephritis, UTI, gastritis, gastroenteritis, mesenteric adenitis, obstruction, constipation, hernia, abdominal abscess, perforation, diverticulitis, IBD, ischemic colitis, abdominal aortic aneurysm, or others. ED COURSE AND MEDICAL DECISION MAKING: MEDICATIONS GIVEN: 500 mL normal saline solution bolus. Milk and molasses enema. INTERPRETATION OF LABS: I interpreted the labs with full lab results as below in the lab section of this note. Hemoglobin stable at 11.4. White blood cell count normal 8.89. Platelet count normal at 311. Glucose 113 and alk phos 150, but CMP otherwise normal. Lactate normal. Procalcitonin normal. Cath urine sample was normal. INTERPRETATION OF IMAGING: Imaging studies were interpreted by myself and read by radiology as per the imaging section of this note. Chest x-ray showed no acute cardiopulmonary etiology. CT scan of the abdomen and pelvis as well as lumbar spine with IV contrast showed rectosigmoid fecal retention and moderate to severe constipation. The rectal wall is thickened with surrounding inflammation and fluid consistent with a stercoral proctitis. No bowel obstruction. There is bladder distention. No acute bony abnormality within the lumbar spine. 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 Spondylotic change throughout the lumbar spine. There is severe arthritic change and deformity of the right hip as above which is similar to the 09/21/2022 MRI exam. These findings are likely on a degenerative basis. Septic arthritis of the hip is considered less likely, but cannot be entirely excluded. EXTERNAL RECORDS REVIEWED: I reviewed the patient's outpatient office visit from earlier today as summarized above. CONSULTATIONS: On-call hospitalist [facility] SUMMARY: I examined the patient. The patient does have some erythema and edema around the rectal area and sacrum, but no obvious abscess, cyst, or drainage noted. However, the exam was somewhat difficult due to the patient's continued fecal incontinence during my exam. There is harder stool felt within the rectal vault, but not a true fecal impaction and the stool was too high up to disimpact. No obvious masses or hemorrhoids noted. No thrombosed hemorrhoid noted. Stool was Hemoccult negative. An IV lock was placed and labs were drawn. Due to the concern for abscess/infection as well as the patient's fecal incontinence, a CT scan of the abdomen, pelvis, and lumbar spine was obtained. The CT scan showed no evidence for abscess or infection, but does show rectosigmoid fecal retention and moderate to severe constipation as well as stercoral proctitis. I suspect that the patient's fecal incontinence is secondary to overflow from her constipation and poor rectal tone. The patient has irritation around the rectum from her continued fecal incontinence, but no evidence for abscess at this time. The patient has known severe arthritic changes of the right hip and is awaiting surgery. No evidence for septic arthritis based on history or exam at this time. The patient was given a milk of molasses enema with a significant amount of stool produced per nursing staff. However, the patient does continue with some leakage of stool. The patient has been having trouble taking care of herself at home due to the decreased mobility from her right hip and constant need to go to the bathroom. I spoke with case management and we are unable to obtain in-home services for the patient at this time of day. The patient states that she has had trouble getting in-home care as an outpatient as well. I had a meaningful discussion about this patient with Dr. Thomson who agrees with my assessment and the treatment plan. I spoke with the on-call hospitalist who agreed to admit the patient for further management. Please refer to their dictation for further details. The patient's care was transferred in stable condition. DIAGNOSIS: Constipation with stercoral colitis Fecal incontinence Stage I skin ulcer of the sacral region Past Med/Surg History Medical History Stage 1 skin ulcer of sacral region COVID Osteoporosis Bursitis Cervical spinal stenosis Irritable bowel syndrome (IBS) Osteoarthritis Chronic back pain Post traumatic stress disorder Depression Anxiety Hypertension Cardiac murmur Chronic kidney disease Surgical History History of esophagogastroduodenoscopy (EGD) History of colonoscopy History of lumpectomy of left breast History of cholecystectomy History of cataract surgery History of open reduction and internal fixation (ORIF) procedure History of carpal tunnel release History of salpingo-oophorectomy S/P BRETT (total abdominal hysterectomy) Family History Father Alcoholic Prostate cancer Hypertension Mother CHF (congestive heart failure) Glaucoma Obesity Social History Smoking Status: Former smoker Tobacco Type: Cigarettes Smoking End Date: 1985; Second Hand Exposure: No; Do You Dip or Chew Tobacco: No; Hx Alcohol Use: No Hx Substance Use: No Preferred Language: Irish Communication Ability: Effective 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: Yes and No Beliefs That Will Affect Care: None marital status: Current Living Situation: Alone Current Living Situation Comment: [place] current occupational status: employed current occupation: [employer] Other Information That Helps Us Care for You: No Feels Safe at Home: Yes Safety Concerns: Feels Safe At This Time Gender Identity: Female Assistive Devices: Wheelchair Allergies Allergies Allergy/AdvReac Type Severity Reaction Status Date / Time sulfamethoxazole Allergy Unknown Unknown Verified 02/14/23 10:31 [From Bactrim] trimethoprim [From Bactrim] Allergy Unknown Unknown Verified 02/14/23 10:31 prednisone AdvReac Severe TROUBLE Verified 02/14/23 10:31 WITH BLADDER CONTROL gluten AdvReac Intermediate Gastrointestinal Verified 02/14/23 10:31 Upset lactose AdvReac Intermediate Gastrointestinal Verified 02/14/23 10:31 Upset Home Meds Home Medications Medication Instructions Recorded Confirmed cyclosporine 0.05 % eye drops in a 1 drp ophthalmic (eye) Q12H 01/09/18 02/14/23 dropperette (Restasis) duloxetine 30 mg capsule,delayed 30 mg PO BID 01/09/18 02/14/23 release polyethylene glycol 3350 17 1 dose PO QAM 01/09/18 02/14/23 gram/dose oral powder (Miralax) red yeast rice 600 mg capsule 1,200 mg PO QAM 05/08/19 02/14/23 peppermint oil 1 applic topical DIRECTED PRN 08/13/20 02/14/23 Pain psyllium husk 3 gram/5.4 gram oral 1 tbsp PO HS 08/13/20 02/14/23 powder apple cider vinegar 500 mg tablet 500 mg PO DAILY NEEDED 10/01/20 02/14/23 cholecalciferol (vitamin D3) 50 50 mcg PO DAILY 10/01/20 02/14/23 mcg (2,000 unit) capsule calcium carbonate 600 mg calcium 600 mg PO DAILY 07/30/22 02/14/23 (1,500 mg) tablet (Calcium) tizanidine 4 mg capsule (Zanaflex) 2 mg PO HS 11/10/22 02/14/23 losartan 100 mg tablet 100 mg PO DAILY 11/30/22 02/14/23 Previous Rx's Medication Instructions Recorded triamcinolone acetonide 0.1 % 1 applic topical BID #80 grams 06/17/22 topical ointment glycopyrronium tosylate 2.4 % 1 applic topical DAILY #30 ea 07/28/22 towelette (Qbrexza) diclofenac sodium 1 % topical gel 2 g topical QID PRN pain #100 grams 11/10/22 (Voltaren Arthritis Pain) gabapentin 300 mg capsule See Rx Instructions PO .COMPLEX 11/15/22 #90 caps amlodipine 5 mg tablet (Norvasc) 2.5 mg (1/2 x 5 mg) PO QAM #30 tabs 01/21/23 metoprolol succinate 25 mg 25 mg PO QAM #30 tabs 01/21/23 tablet,extended release 24 hr olanzapine 2.5 mg tablet 2.5 mg PO BID #60 tabs 01/21/23 oxybutynin chloride 2.5 mg tablet 2.5 mg PO .qhs #30 tabs 02/08/23 silver sulfadiazine 1 % topical 1 applic topical BID sore on 02/08/23 cream (Silvadene) bottom #400 grams Results & Data (ED) Vital Signs Vital Signs - 24 hr 02/14/23 12:26 Temperature 36.7 C Temperature Source Temporal Artery Scan Pulse Rate 84 Respiratory Rate 18 Respiratory Effort / Characteristics Non-Labored Spontaneous Respiratory Depth Normal Respiratory Pattern Regular Blood Pressure 146/78 H Blood Pressure Mean 100 Pulse Oximetry 96 Oxygen Delivery Method Room Air Sepsis Recent Fever Within 48 Hours No Sepsis New/Unexplained Change in Mental Status No Sepsis Action Taken by Nursing No Action Required Laboratory Data 02/15/23 07:17 02/15/23 07:17 Lab Results 02/14/23 02/14/23 02/14/23 Range/Units 13:19 13:30 17:01 WBC 8.89 (4.8-10.8) K/ul RBC 3.94 L (4.20-5.40) M/uL Hgb 11.4 L (12.0-16.0) g/dl Hct 34.7 L (37.0-47.0) % MCV 88.1 (80.0-100.0) fL MCH 28.9 (25.0-34.0) pg MCHC 32.9 (32.0-36.0) g/dL RDW Std Deviation 41.0 (36.4-46.3) fL RDW Coeff of Elis 12.6 (11.5-14.5) % Plt Count 311 (130-400) K/uL MPV 9.8 (9.4-12.4) fL Immature Gran % (Auto) 0.4 % Neut % (Auto) 75.3 % Lymph % (Auto) 14.3 % Lyman % (Auto) 8.5 % Eos % (Auto) 1.1 % Baso % (Auto) 0.4 % Neut # (Auto) 6.68 H (1.40-6.50) K/uL Lymph # (Auto) 1.27 (1.20-3.40) K/uL Lyman # (Auto) 0.76 H (0.11-0.59) K/uL Eos # (Auto) 0.10 (0.00-0.50) K/uL Baso # (Auto) 0.04 (0.00-0.20) K/uL Immature Gran # (Auto) 0.04 (0.01-0.20) K/uL Sodium 137 (136-145) mmol/L Potassium 4.3 (3.5-5.1) mmol/L Chloride 103 (98-107) mmol/L Carbon Dioxide 29 (21-32) mmol/L Anion Gap 5 (3-11) BUN 15 (6-23) mg/dl Creatinine 0.84 (0.6-1.2) mg/dl Est Cr Clr Drug Dosing Not Reportable Est GFR ( Amer) 75.5 ml/min Est GFR (Non-Af Amer) 65.2 ml/min BUN/Creatinine Ratio 17.9 (10-20) Glucose 113 H (70-99(Fasting)) mg/dl Lactate 0.7 (0.4-2.0) mmol/L Calcium 10.2 (8.6-10.3) mg/dl Total Bilirubin 0.8 (0.2-1.0) mg/dl AST 19 (13-39) U/L ALT 11 (7-52) U/L Alkaline Phosphatase 150 H (34-104) U/L Total Protein 6.7 (6.0-8.3) gm/dl Albumin 3.8 (3.4-5.0) gm/dl Globulin 2.9 (2.5-4.0) gm/dl Albumin/Globulin Ratio 1.3 (0.9-2) Procalcitonin < 0.05 (0-0.5) ng/ml Urine Color Yellow Urine Appearance Clear (Clear) Urine pH 7.0 (4.5-7.5) Ur Specific [place] 1.012 (1.000-1.030) Urine Protein Negative (Negative) Urine Glucose (UA) Negative (Negative) Urine Ketones Negative (Negative) Urine Blood Negative (Negative) Urine Nitrite Negative (Negative) Urine Bilirubin Negative (Negative) Urine Urobilinogen Negative (Negative) Ur Leukocyte Esterase Negative (Negative) Administered Medications Amlodipine Besylate (Amlodipine Besylate 5 Mg Tab) 2.5 mg PO QAM [facility] Stop: 03/17/23 08:59 Last Admin: 02/15/23 08:18 Dose: 2.5 mg Documented By: BT Calcium Carbonate (Calcium Carbonate 1250mg Tab) 1,250 mg PO DAILY MARLEN Stop: 03/17/23 08:59 Last Admin: 02/15/23 08:18 Dose: 1,250 mg Documented By: BT Duloxetine HCl (Duloxetine Hcl 30 Mg Cap) 30 mg PO BID MARLEN Stop: 03/16/23 20:59 Last Admin: 02/15/23 08:19 Dose: 30 mg Documented By: Admin: 02/14/23 22:10 Dose: 30 mg Documented By: HWLaura Gabapentin (Gabapentin 300 Mg Cap) 300 mg PO BID MARLEN Stop: 03/16/23 20:59 Last Admin: 02/15/23 08:19 Dose: 300 mg Documented By: Admin: 02/14/23 22:11 Dose: 300 mg Documented By: SALLY Heparin Sodium (Porcine) (Heparin Sod 5,000 Unit/0.5 Ml Vial) 5,000 units SQ Q12 MARLEN Stop: 03/16/23 20:59 Last Admin: 02/15/23 08:20 Dose: Not Given Documented By: Admin: 02/14/23 22:11 Dose: 5,000 units Documented By: SALLY Losartan Potassium (Losartan Potassium 50 Mg Tab) 100 mg PO DAILY MARLEN Stop: 03/17/23 08:59 Last Admin: 02/15/23 08:19 Dose: 100 mg Documented By: MERY Metoprolol Succinate (Metoprolol Succ 25mg Ext Rel Tab) 25 mg PO QAM MARLEN Stop: 03/17/23 08:59 Last Admin: 02/15/23 08:19 Dose: 25 mg Documented By: MERY Olanzapine (Olanzapine 2.5 Mg Tab) 2.5 mg PO BID MARLEN Stop: 03/16/23 20:59 Last Admin: 02/15/23 08:20 Dose: 2.5 mg Documented By: Admin: 02/14/23 22:12 Dose: 2.5 mg Documented By: SALLY Oxybutynin Chloride (Oxybutynin Chloride 5 Mg Tab) 2.5 mg PO HS MARLEN Stop: 03/16/23 20:59 Last Admin: 02/14/23 22:10 Dose: 2.5 mg Documented By: SALLY Polyethylene Glycol (Polyethylene (Miralax) 17 Gm Pack) 17 gm PO DAILY MARLEN Stop: 03/16/23 20:26 Last Admin: 02/15/23 08:19 Dose: Not Given Documented By: Admin: 02/14/23 22:09 Dose: Not Given Documented By: SALLY Senna/Docusate Sodium (Docusate Sodium/Senna 50/8.6mg Tab) 2 tab PO HS MARLEN Stop: 03/16/23 20:59 Last Admin: 02/14/23 22:11 Dose: Not Given Documented By: SALLY Silver Sulfadiazine (Silver Sulfadiazine 1% Cr 50 Gm Jar) 1 appln TOP BID MARLEN Stop: 03/16/23 20:59 Last Admin: 02/15/23 08:19 Dose: 1 appln Documented By: Admin: 02/14/23 22:12 Dose: 1 appln Documented By: SALLY Tizanidine HCl (Tizanidine Hcl 4 Mg Tablet) 2 mg PO HS MARLEN Stop: 03/16/23 20:59 Last Admin: 02/14/23 22:20 Dose: 2 mg Documented By: SALLY Triamcinolone Acetonide (Triamcinolone Acet 0.1% Oint 15 Gm Tube) 1 appln TOP BID MARLEN Stop: 03/16/23 20:59 Last Admin: 02/15/23 08:19 Dose: 1 appln Documented By: Admin: 02/14/23 22:13 Dose: 1 appln Documented By: SALLY Vitamin D (Cholecalciferol 1,000 Units 25 Mcg Tab) 2,000 units PO DAILY MARLEN Stop: 03/17/23 08:59 Last Admin: 02/15/23 08:18 Dose: 2,000 units Documented By: MERY Discontinued Medications Hydralazine HCl (Hydralazine 10 Mg Tab) 10 mg PO ONE ONE Stop: 02/14/23 21:44 Last Admin: 02/14/23 22:10 Dose: 10 mg Documented By: SALLY Sodium Chloride (Nss) 500 mls @ 999 mls/hr IV .Q31M ONE Stop: 02/14/23 13:29 Last Infusion: 02/14/23 15:24 Dose: Infused Documented By: Admin: 02/14/23 13:52 Dose: 999 mls/hr Documented By: KATY Ioversol (Optiray 320 500ml) 94 ml IV ONCE ONE Stop: 02/14/23 14:36 Last Admin: 02/14/23 14:36 Dose: 94 ml Documented By: IBETH Morphine Sulfate (Morphine Sulfate 2 Mg/Ml Carp) 1 mg IV NOW STA Stop: 02/14/23 20:48 Last Admin: 02/14/23 21:26 Dose: 1 mg Documented By: SALLY Discharge Plan Visit Data Chief Complaint: Wound ED Provider: Ej Thomson ED Midlevel Provider: Lisset Castro Discharge Problem: Stercoral colitis, Stage 1 skin ulcer of sacral region, Constipation, Fecal incontinence Patient Disposition: Admitted As Inpatient Condition: Good Discharge Instructions Interventions: ED Discharge Assessment Last Done: 02/14/23 20:28 Discharge Problem: Constipation Qualifiers: Constipation type: unspecified constipation type Qualified Code(s): K59.00 - Constipation, unspecified Fecal incontinence Qualifiers: Fecal incontinence type: unspecified Qualified Code(s): R15.9 - Full incontinence of feces
[2023-02-14] MEDS ORDERED: SODIUM CHLORIDE 0.9% 500 ML IV ONE (12:59)
--- NOTE | 2023-02-14 13:27 | XRay Report ---
SINGLE VIEW CHEST CLINICAL HISTORY: Infection. FINDINGS: An AP, portable, upright chest radiograph is compared to study dated 12/08/2022. The examina tion is degraded by portable technique and patient rotation. The heart is mildly enlarged. The pulmo nary vasculature is noncongested. Chronic interstitial thickening is similar to previous. There is mi ld bibasilar scarring/atelectasis. The lungs and pleural spaces are otherwise clear. No pneumothorax is seen. The skeletal structures are osteopenic. The bony thorax is grossly intact. IMPRESSION: No active disease in the chest. ACT 112: Negative or not required by law. Electronically signed by: Justin Velez M.D. 02/14/2023 1:26 PM
[2023-02-14 13:44] LABS: Basophils # (auto) 0.04 K/uL (0.00-0.20); Basophils % (auto) 0.4 %; Eosinophils % (auto) 1.1 %; Hematocrit (blood only) 34.7 % (37.0-47.0); Hemoglobin 11.4 g/dl (12.0-16.0); Immature Granulocytes # (auto) 0.04 K/uL (0.01-0.20); Immature Granulocytes % (auto) 0.4 %; Lymphocytes # (auto) 1.27 K/uL (1.20-3.40); Lymphocytes % (auto) 14.3 %; Mean Corpuscular Hemoglobin 28.9 pg (25.0-34.0); Mean Corpuscular Hgb Conc 32.9 g/dL (32.0-36.0); Mean Corpuscular Volume 88.1 fL (80.0-100.0); Mean Platelet Volume 9.8 fL (9.4-12.4); Monocytes # (auto) 0.76 K/uL (0.11-0.59); Monocytes % (auto) 8.5 %; Neutrophils # (auto) 6.68 K/uL (1.40-6.50); Neutrophils % (auto) 75.3 %; Platelet Count 311 K/uL (130-400); RDW Coefficient of Variation 12.6 % (11.5-14.5); Red Blood Count 3.94 M/uL (4.20-5.40); White Blood Count 8.89 K/ul (4.8-10.8)
[2023-02-14 13:54] LABS: Alanine Aminotransferase 11 U/L (7-52); Albumin Globulin Ratio 1.3 (0.9-2); Albumin Level 3.8 gm/dl (3.4-5.0); Alkaline Phosphatase 150 U/L (34-104); Anion Gap 5 (3-11); Aspartate Aminotransferase 19 U/L (13-39); BUN Creatinine Ratio 17.9 (10-20); Bilirubin,Total 0.8 mg/dl (0.2-1.0); Blood Urea Nitrogen 15 mg/dl (6-23); Calcium 10.2 mg/dl (8.6-10.3); Carbon Dioxide 29 mmol/L (21-32); Chloride 103 mmol/L (98-107); Est GFR (African American) 75.5 ml/min; Est GFR (Non-African American) 65.2 ml/min; Globulin 2.9 gm/dl (2.5-4.0); Glucose 113 mg/dl (70-99(Fasting)); Potassium 4.3 mmol/L (3.5-5.1); Sodium 137 mmol/L (136-145); Total Protein 6.7 gm/dl (6.0-8.3)
[2023-02-14 14:21] LABS: Appearance Urine Clear (Clear); Bilirubin Urine Negative (Negative); Blood Urine Negative (Negative); Color Urine Yellow; Glucose Urine UA Negative (Negative); Ketones Urine Negative (Negative); Leukocyte Esterase Urine Negative (Negative); Nitrite Urine Negative (Negative); Protein Urine Negative (Negative); Specific Gravity Urine 1.012 (1.000-1.030); Urobilinogen Urine Negative (Negative)
[2023-02-14] MEDS ORDERED: OPTIRAY 320 500ml IV ONE (14:35)
--- NOTE | 2023-02-14 15:00 | CT Scan Report ---
CT SCAN OF THE ABDOMEN AND PELVIS WITH IV CONTRAST; CT SCAN OF THE LUMBAR SPINE WITH IV CONTRAST CLINICAL HISTORY: Generalized abdominal pain. Low back pain. COMPARISON STUDY: Radiographs of the right hip and pelvis dated 12/08/2022. MRI of the right hip date d 09/21/2022. Lumbar spine radiographs dated 07/30/2022. TECHNIQUE: Following the IV administration of 94 cc of Optiray 320, CT scan of the abdomen and pelvi s is performed from the lung bases to the proximal femora. Additionally, CT scan of the lumbar spine is performed from the lower thoracic spine to the sacrum. Images for both examinations are reviewed i n the axial, sagittal, and coronal planes. IV contrast was administered without complication. A dose lowering technique was utilized adhering to the principles of ALARA. CT DOSE: 936.2 mGy.cm FINDINGS: Lung bases: The heart is mildly enlarged and without pericardial effusion. The coronary arteries and mitral annulus are densely calcified. The lung bases are clear noting bibasilar scarring/atelectasis. Liver: The contrast-enhanced liver is normal in size, contour, and attenuation. There is minimal cent ral intrahepatic biliary ductal dilatation. The hepatic veins and portal veins are patent. Gallbladder: Surgically absent and clips in the gallbladder fossa. A dilated cystic duct remnant irma ures up to 1.8 cm. Spleen: Normal in size and attenuation. Pancreas: Unremarkable. Adrenal glands: Unremarkable. Kidneys: The contrast enhanced kidneys demonstrate mild cortical atrophy and are without hydronephros is. The kidneys enhance symmetrically. Abdominal vasculature: There is advanced atherosclerotic calcification and ectasia of the abdominal a maya. Bowel: There is rectosigmoid fecal impaction and moderate to severe constipation. The rectal wall is thickened with surrounding inflammation and fluid. The appearance is consistent with stercoral procti tis. There is no bowel obstruction. The appendix is not visualized. Peritoneum: There is no intraperitoneal free air or abdominal ascites. Lymphadenopathy: None. Pelvic viscera: The the bladder is distended but otherwise normal in appearance. The uterus is surgic ally absent. No adnexal lesion is seen. Skeletal structures: The skeletal structures are osteopenic. See below for dedicated discussion of th e lumbar spine. No lytic or blastic lesions are seen. There is severe degenerative change in the righ t hip with associated joint effusion and surrounding bursal fluid. There is calcific debris within th e joint effusion and these findings are similar to the 09/21/2022 hip MRI. Sclerotic change is noted in the sacroiliac joints. LUMBAR SPINE: There is no evidence of fracture or malalignment. Vertebral body height is maintained t hroughout the lumbar spine. There are bilateral pars defects at L5 with 11 mm of anterolisthesis of L 5-S1. Alignment is otherwise preserved. Anterior and lateral marginal osteophytes are seen throughout . The transverse and spinous processes are intact. There is moderate disc space narrowing at L5-S1. M ild narrowing is seen at the remaining lumbar levels. Posterior disc bulges are seen several levels. There is no CT evidence of high-grade central canal stenosis. Bilateral disc bulges are seen bilatera lly at L4-L5 and L5-S1. This may impinge the exiting bilateral L4 and L5 nerve roots. There is at cec[address] st moderate bilateral neural foraminal stenosis at L5-S1. There is mild fatty atrophy of the paraspin ous musculature. IMPRESSION: 1. Rectosigmoid fecal retention and moderate to severe constipation. 2. The rectal wall is thickened with surrounding inflammation and fluid consistent with a stercoral p roctitis. 3. There is no bowel obstruction. 4. Bladder distention. 5. No acute bony abnormality is seen involving the lumbar spine. 6. There are bilateral pars defects at L5 with grade 1 anterolisthesis of L5-S1. 7. Spondylotic change throughout the lumbar spine as above. 8. Severe arthritic change and deformity of the right hip as above which is similar to the 09/21/2022 M [facility] examination. These findings are all likely on a degenerative basis. Septic arthritis of the hip is considered less likely but cannot entirely exclude by imaging and this was previously aspirated. Cli nical correlation will be essential. 9. Additional findings as above. ACT 112: Negative or not required by law. Electronically signed by: Justin Velez M.D. 02/14/2023 2:59 PM
--- NOTE | 2023-02-14 15:56 | Emergency Department Note ---
ED Visit Note Staff note: I have reviewed the Patients chart and have discussed this case with my PA. I generally agree with the ED note and findings. .
--- NOTE | 2023-02-14 18:07 | History & Physical Report ---
Date of Service February 14, 2023 Assessment & Plan (1) Stercoral colitis: Plan: Stercoral colitis CT shows rectosigmoid fecal retention and moderate to severe constipation. Inner diameter of approximately 74 mm Received an enema in the ER, large amount of stool output since and on reassessment Aggressive bowel regimen ordered. No evidence of perforation on CT. MiraLAX Dulcolax, breakthrough milk of magnesia and enema as required (2) Stage 1 skin ulcer of sacral region: Plan: Sacral wound Patient reports she did have a open wound on her tailbone/sacrum using topical creams to help heal On assessment no fistula or open sacral wound is appreciated. She has grade 1 pressure change of the distal sacrum without superficial compromise as shown in PE Pressure ulcer precautions No leukocytosis No mention of fistula or deep infection noted on CTs (3) Adjustment disorder with mixed disturbance of emotions and conduct: Plan: Depression Continue olanzapine, duloxetine (4) Hypertension: Plan: Hypertension Continue Norvasc Continue metoprolol (5) Chronic kidney disease: Plan: Renal function at baseline on admission, creatinine 0.84. Trend BMP daily (6) Hip osteomyelitis, right: Plan: Osteoarthritis of the right hip -Last saw orthopedics 02/07/2023. Is a good candidate for hip replacement, but has placement issues afterwards. Would require transitional care assistance and has been recommended to follow-up with [facility] who has this available. No acute intervention at time of admission Patient does have left thigh contusion from a fall, no crepitus and no pain on an hip internal rotation, external rotation, or flexion. XR deferred (7) Osteoarthritis of right hip: Plan: Requires hip surgery place where transitional care unit is available, will require follow-up at [facility] for this CM consulted for assistance with placement Plan DVT prophylaxis: SCDs, Heparin SQ Diet: low salt 2/2 htn CODE: DNR/DNI Disposition: Medical surgical History of Present Illness Primary Care Provider: DO Laurel Callejas 83-year-old female who presents to the ER on referral from her PCPs office for a buttock infection/cyst. Cyst has been present for 3 days, with increasing pain patient is unable to sit due to this. Patient does have a history of hemorrhoids and fecal incontinence. She is pending follow-up with [facility] for right hip surgery due to chronic hip pain which has not changed. She lives alone and was working to get a wheelchair, has had difficulty ambulating and now cannot sit due to the cyst. She is recommended for surgical evaluation due to purulent drainage from her cyst Seen by PCP day of admission. ?sacral wounds. No drainage recommended for ER evaluation for both wound and patient's ability to care for herself at home. Abdomen/pelvis/lumbar spine CT: Rectosigmoid fecal retention and moderate to severe constipation. Rectal wall thickening with stercoral proctitis. Severe arthritic change of the right hip similar to 09/21/2022 MRI evaluation. Laurel is seen at the bedside. She reports that she has had pain around her rectum difficulty with fewer bowel movements and diarrhea and loose stool. Is also painful to have bowel movements. She has had episodes of both incontinence of stool and urine. She has not been able to ambulate due to pain in her hip, but also cannot sit due to discomfort and diarrhea. Is unable to meet all of her care needs at home. Reports she does not have nursing help.. She reports that her rectum is painful to sit on. She is not able to ambulate well due to severe arthritis in her right hip, and this has improved from an acute flare a few months ago but is still painful to her. She was evaluated by 2 orthopedic groups and was told that she must have her surgery performed at [place]. She had a follow-up at [facility] but has difficulty making this appointment due to lack of transportation. She reports that between her limited ambulation with her arthritis and hip pain, and now with pain when sitting and incontinence of stool she "just cannot manage at home ". She denies fever, chills, sweats. No nausea/vomiting. She denies saddle anesthesia, feels she does have good strength in her legs but that movement of her right leg is pain limited due to her arthritis. She denies dysuria. She denies shortness of breath. She denies chest pain Allergies Allergy/AdvReac Type Severity Reaction Status Date / Time sulfamethoxazole Allergy Unknown Unknown Verified 02/14/23 10:31 [From Bactrim] trimethoprim [From Bactrim] Allergy Unknown Unknown Verified 02/14/23 10:31 prednisone AdvReac Severe TROUBLE Verified 02/14/23 10:31 WITH BLADDER CONTROL gluten AdvReac Intermediate Gastrointestinal Verified 02/14/23 10:31 Upset lactose AdvReac Intermediate Gastrointestinal Verified 02/14/23 10:31 Upset Home Medications Medication Instructions Recorded Confirmed Type cyclosporine 0.05 % eye drops in a 1 drp ophthalmic (eye) Q12H 01/09/18 02/14/23 History dropperette (Restasis) duloxetine 30 mg capsule,delayed 30 mg PO BID 01/09/18 02/14/23 History release polyethylene glycol 3350 17 1 dose PO QAM 01/09/18 02/14/23 History gram/dose oral powder (Miralax) red yeast rice 600 mg capsule 1,200 mg PO QAM 05/08/19 02/14/23 History peppermint oil 1 applic topical DIRECTED PRN 08/13/20 02/14/23 History Pain psyllium husk 3 gram/5.4 gram oral 1 tbsp PO HS 08/13/20 02/14/23 History powder apple cider vinegar 500 mg tablet 500 mg PO DAILY NEEDED 10/01/20 02/14/23 History cholecalciferol (vitamin D3) 50 50 mcg PO DAILY 10/01/20 02/14/23 History mcg (2,000 unit) capsule triamcinolone acetonide 0.1 % 1 applic topical BID #80 grams 06/17/22 02/14/23 Rx topical ointment glycopyrronium tosylate 2.4 % 1 applic topical DAILY #30 ea 07/28/22 02/14/23 Rx towelette (Qbrexza) calcium carbonate 600 mg calcium 600 mg PO DAILY 07/30/22 02/14/23 History (1,500 mg) tablet (Calcium) diclofenac sodium 1 % topical gel 2 g topical QID PRN pain #100 grams 11/10/22 02/14/23 Rx (Voltaren Arthritis Pain) tizanidine 4 mg capsule (Zanaflex) 2 mg PO HS 11/10/22 02/14/23 History gabapentin 300 mg capsule See Rx Instructions PO .COMPLEX 11/15/22 02/14/23 Rx #90 caps losartan 100 mg tablet 100 mg PO DAILY 11/30/22 02/14/23 History amlodipine 5 mg tablet (Norvasc) 2.5 mg (1/2 x 5 mg) PO QAM #30 tabs 01/21/23 02/14/23 Rx metoprolol succinate 25 mg 25 mg PO QAM #30 tabs 01/21/23 02/14/23 Rx tablet,extended release 24 hr olanzapine 2.5 mg tablet 2.5 mg PO BID #60 tabs 01/21/23 02/14/23 Rx oxybutynin chloride 2.5 mg tablet 2.5 mg PO .qhs #30 tabs 02/08/23 02/14/23 Rx silver sulfadiazine 1 % topical 1 applic topical BID sore on 02/08/23 02/14/23 Rx cream (Silvadene) bottom #400 grams Past Med/Surg History Medical History Stage 1 skin ulcer of sacral region COVID Osteoporosis Bursitis Cervical spinal stenosis Irritable bowel syndrome (IBS) Osteoarthritis Chronic back pain Post traumatic stress disorder Depression Anxiety Hypertension Cardiac murmur Chronic kidney disease Surgical History History of esophagogastroduodenoscopy (EGD) History of colonoscopy History of lumpectomy of left breast History of cholecystectomy History of cataract surgery History of open reduction and internal fixation (ORIF) procedure History of carpal tunnel release History of salpingo-oophorectomy S/P BRETT (total abdominal hysterectomy) Family History Father Alcoholic Prostate cancer Hypertension Mother CHF (congestive heart failure) Glaucoma Obesity Social History Smoking Status: Never smoker Tobacco Type: Cigarettes Second Hand Exposure: No; Do You Dip or Chew Tobacco: No; Hx Alcohol Use: No Hx Substance Use: No Preferred Language: Slovenian Communication Ability: Effective Development Coordinator Required: No Beliefs That Will Affect Care: None marital status: Current Living Situation: Alone Current Living Situation Comment: Pt. 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 NAD. Cooperative. HEENT: Atraumatic, normocephalic. Pulm: CTAB A&P. -wheezes, -rales, -rhonchi. Symmetrical chest rise. No increased work of breathing. No respiratory distress. Cardiac: RRR, -mrg. Radial pulses intact and symmetrical. Abdominal: Nontender, nondistended, soft. BS present. Extremities: Right hip tender to palpation but without warmth/erythema. Left hip nontender. Left lateral thigh with contusion, no pain on left hip flexion/extension/internal rotation/external rotation. Sacral exam as noted below. No open wound or fistula appreciate Results & Data Results & Data Vital Signs (Past 12 Hours) Vital Signs Temp Pulse Resp BP Pulse Ox O2 Del Method 02/14/23 12:26 36.7 C 84 18 146/78 H 96 Room Air PG Care Time/CCT Total # of Minutes Spent Total Time Spent with Patient: Total time spent is greater than 50% in coordination of care (as documented) at patient's floor/unit and/or counseling patient: Coding Level of Care Code 51501 INT INP/OBS CARE 2/55MIN Diagnoses Stercoral colitis K52.89 Stage 1 skin ulcer of sacral region L98.429 Adjustment disorder with mixed disturbance of emotions and conduct F43.25 Hypertension I10 Hypertension type: unspecified Chronic kidney disease N18.9 Hip osteomyelitis, right M86.9 Primary osteoarthritis of right hip M16.11 Osteoarthritis type: primary (4) Hypertension Hypertension type: unspecified Qualified Code(s): I10 - Essential (primary) hypertension (7) Osteoarthritis of right hip Osteoarthritis type: primary Qualified Code(s): M16.11 - Unilateral primary osteoarthritis, right hip
[2023-02-14] MEDS ORDERED: MAGNESIUM HYDROXIDE SUSP 30 ML UDC PO PRN (20:27)
[2023-02-14] MEDS ORDERED: PEPPERMINT OIL TOP PRN (20:27)
[2023-02-14] MEDS ORDERED: SOD PHOSPHATE/SOD BIPHOSPHATE ENEMA 132 ML BTL PR PRN (20:27)
[2023-02-14] MEDS ORDERED: ACETAMINOPHEN 325 MG TAB PO PRN (20:27)
[2023-02-14] MEDS ORDERED: ARTIFICIAL TEARS OP PRN (20:46)
[2023-02-14] MEDS ORDERED: MoRPHine SULFATE 2 MG/ML CARP IV STA (20:47)
[2023-02-14] MEDS ORDERED: tiZANidine HCL 4 MG TABLET PO SCH (21:00)
[2023-02-14] MEDS ORDERED: oxyBUTYnin chloride 5 MG TAB PO SCH (21:00)
[2023-02-14] MEDS ORDERED: DOCUSATE SODIUM/SENNA 50/8.6MG TAB PO SCH (21:00)
[2023-02-14] MEDS ORDERED: hydrALAZINE 10 MG TAB PO ONE (21:43)
[2023-02-14] MEDS: POLYETHYLENE (MIRALAX) 17 GM PACK PO SCH (22:09)
[2023-02-14] MEDS: DULoxetine HCL 30 MG CAP PO SCH (22:10)
[2023-02-14] MEDS: HEPARIN SOD 5,000 UNIT/0.5 ML VIAL SQ SCH (22:11)
[2023-02-14] MEDS: GABAPENTIN 300 MG CAP PO SCH (22:11)
[2023-02-14] MEDS: OLANZAPINE 2.5 MG TAB PO SCH (22:12)
[2023-02-14] MEDS: SILVER SULFADIAZINE 1% CR 50 GM JAR TOP SCH (22:12)
[2023-02-14] MEDS: TRIAMCINOLONE ACET 0.1% OINT 15 GM TUBE TOP SCH (22:13)
[2023-02-15 07:39] LABS: Basophils # (auto) 0.06 K/uL (0.00-0.20); Basophils % (auto) 0.9 %; Eosinophils # (auto) 0.31 K/uL (0.00-0.50); Eosinophils % (auto) 4.8 %; Hematocrit (blood only) 31.9 % (37.0-47.0); Hemoglobin 10.5 g/dl (12.0-16.0); Immature Granulocytes # (auto) 0.02 K/uL (0.01-0.20); Immature Granulocytes % (auto) 0.3 %; Lymphocytes % (auto) 23.4 %; Mean Corpuscular Hemoglobin 28.9 pg (25.0-34.0); Mean Corpuscular Hgb Conc 32.9 g/dL (32.0-36.0); Mean Corpuscular Volume 87.9 fL (80.0-100.0); Mean Platelet Volume 9.8 fL (9.4-12.4); Monocytes # (auto) 0.65 K/uL (0.11-0.59); Monocytes % (auto) 10.1 %; Neutrophils # (auto) 3.88 K/uL (1.40-6.50); Neutrophils % (auto) 60.5 %; Platelet Count 296 K/uL (130-400); RDW Coefficient of Variation 12.7 % (11.5-14.5); RDW Standard Deviation 40.7 fL (36.4-46.3); Red Blood Count 3.63 M/uL (4.20-5.40); White Blood Count 6.42 K/ul (4.8-10.8)
[2023-02-15 08:04] LABS: BUN Creatinine Ratio 19.2 (10-20); Calcium 9.4 mg/dl (8.6-10.3); Creatinine Clr Calc Pharmacy 47.8 ml/min; Est GFR (African American) 89.5 ml/min; Est GFR (Non-African American) 77.2 ml/min; Potassium 4.2 mmol/L (3.5-5.1)
--- NOTE | 2023-02-15 08:04 | Hospitalist Progress Note ---
Date of Service February 15, 2023 Assessment & Plan (1) Stercoral colitis: Plan: Stercoral colitis CT shows rectosigmoid fecal retention and moderate to severe constipation. Inner diameter of approximately 74 mm Received an enema in the ER, large amount of stool output since and on reassessment Aggressive bowel regimen ordered. No evidence of perforation on CT. MiraLAX Dulcolax, breakthrough milk of magnesia and enema as required (2) Stage 1 skin ulcer of sacral region: Plan: Sacral wound Patient reports she did have a open wound on her tailbone/sacrum using topical creams to help heal On assessment no fistula or open sacral wound is appreciated. She has grade 1 pressure change of the distal sacrum without superficial compromise as shown in PE Pressure ulcer precautions No leukocytosis No mention of fistula or deep infection noted on CTs (3) Adjustment disorder with mixed disturbance of emotions and conduct: Plan: Depression Continue olanzapine, duloxetine (4) Hypertension: Plan: Hypertension Continue Norvasc Continue metoprolol (5) Chronic kidney disease: Plan: Renal function at baseline on admission, creatinine 0.84. Trend BMP daily (6) Hip osteomyelitis, right: Plan: Osteoarthritis of the right hip -Last saw orthopedics 02/07/2023. Is a good candidate for hip replacement, but has placement issues afterwards. Would require transitional care assistance and has been recommended to follow-up with [facility] who has this available. No acute intervention at time of admission Patient does have left thigh contusion from a fall, no crepitus and no pain on an hip internal rotation, external rotation, or flexion. XR deferred (7) Osteoarthritis of right hip: Plan: Requires hip surgery place where transitional care unit is available, will require follow-up at [facility] for this CM consulted for assistance with placement Plan DVT prophylaxis: SCDs, Heparin SQ Diet: low salt 2/2 htn CODE: DNR/DNI Disposition: Medical surgical Admission and Anticipated Discharge Date Admission Date: February 14, 2023 Subjective Eval this morning, feeling much better since moving her bowels. Issues at home w/ her FODMAP diet and recently not being able to prepare her meals. She is in the middle of being evicted but currently at same residence and wants to go home to have her dentist appointment tomorrow. Discussed therapy, she reports she didn't do great but doesn't want inpatient rehab and would prefer home health if able to be arranged as told in the past couldn't get with the holidays/availability. Discussed will talk with case management about options and see if able to get her discharged today. Would recommend continued bowel regimen at discharge to prevent issues. Results & Data Results & Data Vital Signs (Past 12 Hours) Vital Signs Temp Pulse Pulse Pulse Resp BP Pulse Ox 02/15/23 07:56 36.7 C 88 18 145/77 H 92 02/15/23 07:32 85 02/15/23 02:35 36.6 C 87 18 136/61 95 02/15/23 02:13 91 H 20 129/69 97 02/14/23 22:26 100 H 20 207/94 H 98 02/14/23 21:36 118 H 20 190/74 H 96 02/14/23 20:19 90 13 217/112 H 98 O2 Del Method 02/15/23 07:56 Room Air 02/15/23 07:32 02/15/23 02:35 Room Air 02/15/23 02:13 Room Air 02/14/23 22:26 Room Air 02/14/23 21:36 Room Air 02/14/23 20:19 Room Air PG Care Time/CCT Total # of Minutes Spent Total Time Spent with Patient: Total time spent is greater than 50% in coordination of care (as documented) at patient's floor/unit and/or counseling patient: Coding Diagnoses Stercoral colitis K52.89 Stage 1 skin ulcer of sacral region L98.429 Adjustment disorder with mixed disturbance of emotions and conduct F43.25 Hypertension I10 Hypertension type: unspecified Chronic kidney disease N18.9 Hip osteomyelitis, right M86.9 Primary osteoarthritis of right hip M16.11 Osteoarthritis type: primary (4) Hypertension Hypertension type: unspecified Qualified Code(s): I10 - Essential (primary) hypertension (7) Osteoarthritis of right hip Osteoarthritis type: primary Qualified Code(s): M16.11 - Unilateral primary osteoarthritis, right hip
[2023-02-15] MEDS: TRIAMCINOLONE ACET 0.1% OINT 15 GM TUBE TOP SCH (08:19)
[2023-02-15] MEDS: POLYETHYLENE (MIRALAX) 17 GM PACK PO SCH (08:19)
[2023-02-15] MEDS: SILVER SULFADIAZINE 1% CR 50 GM JAR TOP SCH (08:19)
[2023-02-15] MEDS: DULoxetine HCL 30 MG CAP PO SCH (08:19)
[2023-02-15] MEDS: GABAPENTIN 300 MG CAP PO SCH (08:19)
[2023-02-15] MEDS: HEPARIN SOD 5,000 UNIT/0.5 ML VIAL SQ SCH (08:20)
[2023-02-15] MEDS: OLANZAPINE 2.5 MG TAB PO SCH (08:20)
[2023-02-15] MEDS ORDERED: METOPROLOL SUCC 25MG EXT REL TAB PO SCH (09:00)
[2023-02-15] MEDS ORDERED: POLYETHYLENE (MIRALAX) 17 GM PACK PO SCH (09:00)
[2023-02-15] MEDS ORDERED: CALCIUM CARBONATE 1250MG TAB PO SCH (09:00)
[2023-02-15] MEDS ORDERED: CHOLECALCIFEROL 1,000 UNITS 25 MCG TAB PO SCH (09:00)
[2023-02-15] MEDS ORDERED: NON-FORMULARY MEDICATION (Red Yeast Rice 600 mg capsule) PO SCH (09:00)
[2023-02-15] MEDS ORDERED: amLODIPine BESYLATE 5 MG TAB PO SCH (09:00)
[2023-02-15] MEDS ORDERED: LOSARTAN POTASSIUM 50 MG TAB PO SCH (09:00)
--- NOTE | 2023-02-15 13:42 | Discharge Summary ---
Date of Service February 15, 2023 Admission HPI Per Admitting Provider Laurelermias Rios 83-year-old female who presents to the ER on referral from her PCPs office for a buttock infection/cyst. Cyst has been present for 3 days, with increasing pain patient is unable to sit due to this. Patient does have a history of hemorrhoids and fecal incontinence. She is pending follow-up with [facility] for right hip surgery due to chronic hip pain which has not changed. She lives alone and was working to get a wheelchair, has had difficulty ambulating and now cannot sit due to the cyst. She is recommended for surgical evaluation due to purulent drainage from her cyst Seen by PCP day of admission. ?sacral wounds. No drainage recommended for ER evaluation for both wound and patient's ability to care for herself at home. Abdomen/pelvis/lumbar spine CT: Rectosigmoid fecal retention and moderate to severe constipation. Rectal wall thickening with stercoral proctitis. Severe arthritic change of the right hip similar to 09/21/2022 MRI evaluation. Laurel is seen at the bedside. She reports that she has had pain around her rectum difficulty with fewer bowel movements and diarrhea and loose stool. Is also painful to have bowel movements. She has had episodes of both incontinence of stool and urine. She has not been able to ambulate due to pain in her hip, but also cannot sit due to discomfort and diarrhea. Is unable to meet all of her care needs at home. Reports she does not have nursing help.. She reports that her rectum is painful to sit on. She is not able to ambulate well due to severe arthritis in her right hip, and this has improved from an acute flare a few months ago but is still painful to her. She was evaluated by 2 orthopedic groups and was told that she must have her surgery performed at [place]. She had a follow-up at [facility] but has difficulty making this appointment due to lack of transportation. She reports that between her limited ambulation with her arthritis and hip pain, and now with pain when sitting and incontinence of stool she "just cannot manage at home ". She denies fever, chills, sweats. No nausea/vomiting. She denies saddle anesthesia, feels she does have good strength in her legs but that movement of her right leg is pain limited due to her arthritis. She denies dysuria. She denies shortness of breath. She denies chest pain Admission Exam Per Admitting Provider General: A&Ox3. NAD. Cooperative. HEENT: Atraumatic, normocephalic. Pulm: CTAB A&P. -wheezes, -rales, -rhonchi. Symmetrical chest rise. No increased work of breathing. No respiratory distress. Cardiac: RRR, -mrg. Radial pulses intact and symmetrical. Abdominal: Nontender, nondistended, soft. BS present. Extremities: Right hip tender to palpation but without warmth/erythema. Left hip nontender. Left lateral thigh with contusion, no pain on left hip flexion/extension/internal rotation/external rotation. Sacral exam as noted below. No open wound or fistula appreciate Principal Diagnosis Stercoral Colitis Discharge Exam General: WD/WN female sitting up in recliner, NAD, reporting wanting to go home HEENT: head atraumatic, normocephalic, mmm, trachea midline Resp: even/unlabored, no w/c/r, on room air CV: RRR, no significant m/r/g, no pitting edema/calf tenderness GI: +BS, soft/NT Extremities: Right hip tender to palpation but without warmth/erythema. Left hip nontender. Left lateral thigh with contusion, no pain on left hip flexion/extension/internal rotation/external rotation. Sacral exam as noted below. No open wound or fistula appreciate Discharge Data Allergies Allergy/AdvReac Type Severity Reaction Status Date / Time sulfamethoxazole Allergy Unknown Unknown Verified 02/14/23 10:31 [From Bactrim] trimethoprim [From Bactrim] Allergy Unknown Unknown Verified 02/14/23 10:31 prednisone AdvReac Severe TROUBLE Verified 02/14/23 10:31 WITH BLADDER CONTROL gluten AdvReac Intermediate Gastrointestinal Verified 02/14/23 10:31 Upset lactose AdvReac Intermediate Gastrointestinal Verified 02/14/23 10:31 Upset Consultations 02/14/23 17:36 ED Decision to Admit Stat Ordered Studies Abdomen/Pelvis CT 02/14/23 12:59 CT SCAN OF THE ABDOMEN AND PELVIS WITH IV CONTRAST; CT SCAN OF THE LUMBAR SPINE WITH IV CONTRAST CLINICAL HISTORY: Generalized abdominal pain. Low back pain. COMPARISON STUDY: Radiographs of the right hip and pelvis dated 12/08/2022. MRI of the right hip dated 09/21/2022. Lumbar spine radiographs dated 07/30/2022. TECHNIQUE: Following the IV administration of 94 cc of Optiray 320, CT scan of the abdomen and pelvis is performed from the lung bases to the proximal femora. Additionally, CT scan of the lumbar spine is performed from the lower thoracic spine to the sacrum. Images for both examinations are reviewed in the axial, sagittal, and coronal planes. IV contrast was administered without complication. A dose lowering technique was utilized adhering to the principles of ALARA. CT DOSE: 936.2 mGy.cm FINDINGS: Lung bases: The heart is mildly enlarged and without pericardial effusion. The coronary arteries and mitral annulus are densely calcified. The lung bases are clear noting bibasilar scarring/atelectasis. Liver: The contrast-enhanced liver is normal in size, contour, and attenuation. There is minimal central intrahepatic biliary ductal dilatation. The hepatic veins and portal veins are patent. Gallbladder: Surgically absent and clips in the gallbladder fossa. A dilated cystic duct remnant measures up to 1.8 cm. Spleen: Normal in size and attenuation. Pancreas: Unremarkable. Adrenal glands: Unremarkable. Kidneys: The contrast enhanced kidneys demonstrate mild cortical atrophy and are without hydronephrosis. The kidneys enhance symmetrically. Abdominal vasculature: There is advanced atherosclerotic calcification and ectasia of the abdominal aorta. Bowel: There is rectosigmoid fecal impaction and moderate to severe constipation. The rectal wall is thickened with surrounding inflammation and fluid. The appearance is consistent with stercoral proctitis. There is no bowel obstruction. The appendix is not visualized. Peritoneum: There is no intraperitoneal free air or abdominal ascites. Lymphadenopathy: None. Pelvic viscera: The the bladder is distended but otherwise normal in appearance. The uterus is surgically absent. No adnexal lesion is seen. Skeletal structures: The skeletal structures are osteopenic. See below for dedicated discussion of the lumbar spine. No lytic or blastic lesions are seen. There is severe degenerative change in the right hip with associated joint effusion and surrounding bursal fluid. There is calcific debris within the joint effusion and these findings are similar to the 09/21/2022 hip MRI. Sclerotic change is noted in the sacroiliac joints. LUMBAR SPINE: There is no evidence of fracture or malalignment. Vertebral body height is maintained throughout the lumbar spine. There are bilateral pars defects at L5 with 11 mm of anterolisthesis of L5-S1. Alignment is otherwise preserved. Anterior and lateral marginal osteophytes are seen throughout. The transverse and spinous processes are intact. There is moderate disc space narrowing at L5-S1. Mild narrowing is seen at the remaining lumbar levels. Posterior disc bulges are seen several levels. There is no CT evidence of high- grade central canal stenosis. Bilateral disc bulges are seen bilaterally at L4- L5 and L5-S1. This may impinge the exiting bilateral L4 and L5 nerve roots. There is at least moderate bilateral neural foraminal stenosis at L5-S1. There is mild fatty atrophy of the paraspinous musculature. IMPRESSION: 1. Rectosigmoid fecal retention and moderate to severe constipation. 2. The rectal wall is thickened with surrounding inflammation and fluid consistent with a stercoral proctitis. 3. There is no bowel obstruction. 4. Bladder distention. 5. No acute bony abnormality is seen involving the lumbar spine. 6. There are bilateral pars defects at L5 with grade 1 anterolisthesis of L5-S1. 7. Spondylotic change throughout the lumbar spine as above. 8. Severe arthritic change and deformity of the right hip as above which is si milar to the 09/21/2022 MRI examination. These findings are all likely on a degenerative basis. Septic arthritis of the hip is considered less likely but cannot entirely exclude by imaging and this was previously aspirated. Clinical correlation will be essential. 9. Additional findings as above. ACT 112: Negative or not required by law. Electronically signed by: Justin Velez M.D. 02/14/2023 2:59 PM Chest X-Ray 02/14/23 13:02 SINGLE VIEW CHEST CLINICAL HISTORY: Infection. FINDINGS: An AP, portable, upright chest radiograph is compared to study dated 12/08/2022. The examination is degraded by portable technique and patient rotation. The heart is mildly enlarged. The pulmonary vasculature is noncongested. Chronic interstitial thickening is similar to previous. There is mild bibasilar scarring/atelectasis. The lungs and pleural spaces are otherwise clear. No pneumothorax is seen. The skeletal structures are osteopenic. The bony thorax is grossly intact. IMPRESSION: No active disease in the chest. ACT 112: Negative or not required by law. Electronically signed by: Justin Velez M.D. 02/14/2023 1:[address] 02/14/23 13:03 CT SCAN OF THE ABDOMEN AND PELVIS WITH IV CONTRAST; CT SCAN OF THE LUMBAR SPINE WITH IV CONTRAST CLINICAL HISTORY: Generalized abdominal pain. Low back pain. COMPARISON STUDY: Radiographs of the right hip and pelvis dated 12/08/2022. MRI of the right hip dated 09/21/2022. Lumbar spine radiographs dated 07/30/2022. TECHNIQUE: Following the IV administration of 94 cc of Optiray 320, CT scan of the abdomen and pelvis is performed from the lung bases to the proximal femora. Additionally, CT scan of the lumbar spine is performed from the lower thoracic spine to the sacrum. Images for both examinations are reviewed in the axial, sagittal, and coronal planes. IV contrast was administered without complication. A dose lowering technique was utilized adhering to the principles of ALARA. CT DOSE: 936.2 mGy.cm FINDINGS: Lung bases: The heart is mildly enlarged and without pericardial effusion. The coronary arteries and mitral annulus are densely calcified. The lung bases are clear noting bibasilar scarring/atelectasis. Liver: The contrast-enhanced liver is normal in size, contour, and attenuation. There is minimal central intrahepatic biliary ductal dilatation. The hepatic veins and portal veins are patent. Gallbladder: Surgically absent and clips in the gallbladder fossa. A dilated cystic duct remnant measures up to 1.8 cm. Spleen: Normal in size and attenuation. Pancreas: Unremarkable. Adrenal glands: Unremarkable. Kidneys: The contrast enhanced kidneys demonstrate mild cortical atrophy and are without hydronephrosis. The kidneys enhance symmetrically. Abdominal vasculature: There is advanced atherosclerotic calcification and ectasia of the abdominal aorta. Bowel: There is rectosigmoid fecal impaction and moderate to severe constipation. The rectal wall is thickened with surrounding inflammation and fluid. The appearance is consistent with stercoral proctitis. There is no bowel obstruction. The appendix is not visualized. Peritoneum: There is no intraperitoneal free air or abdominal ascites. Lymphadenopathy: None. Pelvic viscera: The the bladder is distended but otherwise normal in appearance. The uterus is surgically absent. No adnexal lesion is seen. Skeletal structures: The skeletal structures are osteopenic. See below for dedicated discussion of the lumbar spine. No lytic or blastic lesions are seen. There is severe degenerative change in the right hip with associated joint effusion and surrounding bursal fluid. There is calcific debris within the joint effusion and these findings are similar to the 09/21/2022 hip MRI. Sclerotic change is noted in the sacroiliac joints. LUMBAR SPINE: There is no evidence of fracture or malalignment. Vertebral body height is maintained throughout the lumbar spine. There are bilateral pars defects at L5 with 11 mm of anterolisthesis of L5-S1. Alignment is otherwise preserved. Anterior and lateral marginal osteophytes are seen throughout. The t ransverse and spinous processes are intact. There is moderate disc space narrowing at L5-S1. Mild narrowing is seen at the remaining lumbar levels. Posterior disc bulges are seen several levels. There is no CT evidence of high- grade central canal stenosis. Bilateral disc bulges are seen bilaterally at L4- L5 and L5-S1. This may impinge the exiting bilateral L4 and L5 nerve roots. There is at least moderate bilateral neural foraminal stenosis at L5-S1. There is mild fatty atrophy of the paraspinous musculature. IMPRESSION: 1. Rectosigmoid fecal retention and moderate to severe constipation. 2. The rectal wall is thickened with surrounding inflammation and fluid consistent with a stercoral proctitis. 3. There is no bowel obstruction. 4. Bladder distention. 5. No acute bony abnormality is seen involving the lumbar spine. 6. There are bilateral pars defects at L5 with grade 1 anterolisthesis of L5-S1. 7. Spondylotic change throughout the lumbar spine as above. 8. Severe arthritic change and deformity of the right hip as above which is similar to the 09/21/2022 MRI examination. These findings are all likely on a degenerative basis. Septic arthritis of the hip is considered less likely but cannot entirely exclude by imaging and this was previously aspirated. Clinical correlation will be essential. 9. Additional findings as above. ACT 112: Negative or not required by law. Electronically signed by: Justin Velez M.D. 02/14/2023 2:59 PM Hospital Course (1) Stercoral colitis: Stercoral colitis CT shows rectosigmoid fecal retention and moderate to severe constipation. Inner diameter of approximately 74 mm Received an enema in the ER, large amount of stool output since and on reassessment Aggressive bowel regimen ordered. No evidence of perforation on CT. MiraLAX, Dulcolax, breakthrough milk of magnesia and enema as required 02/15 -- feeling much better since moving her bowels/wanting to go home for her dentist appointment tomorrow. To continue Miralax BID, senna/docusate daily. Instructed to hold off her fiber supplement until moving bowels regularl y/drinking enough. Good appetite while inpatient/no further discomfort reported therapy evals rec SNF, CM to provide HH but declined by patient as she wants private pay caregivers to cook/clean for her. Info provided for private pay Patient want to go home for dental appt tomorrow, supervising provider to discuss options w/ patient but planning for dc on continued bowel regimen. She is typically on FODMAP diet and has specific agents she can/cannot have contributing to difficulty at home Vitamin D added to labs prior to dc, instructed to hold in meantime until see in f/u PCP as if not deficient could contribute to hypercalcium/worsened constipation. (prior occasional elevated Ca, 9.4 prior to dc) (2) Stage 1 skin ulcer of sacral region: Sacral wound Patient reports she did have a open wound on her tailbone/sacrum using topical creams to help heal On assessment no fistula or open sacral wound is appreciated. She has grade 1 pressure change of the distal sacrum without superficial compromise as shown in PE and pressure ulcer precautions undertaken. No mention of fistula/deep infection on CT. Outpt follow up (3) Adjustment disorder with mixed disturbance of emotions and conduct: Depression Continued olanzapine, duloxetine Mood at baseline (4) Hypertension: Continued Norvasc, metoprolol BP 115/61 prior to discharge (5) Chronic kidney disease: Renal function at baseline Renal dosed meds/avoided nephrotoxins as able (6) Hip osteomyelitis, right: Osteoarthritis of the right hip -Last saw orthopedics 02/07/2023. Is a good candidate for hip replacement, but has placement issues afterwards. Would require transitional care assistance and has been recommended to follow-up with [facility] who has this available. No acute intervention at time of admission, therapy rec rehab however patient DECLINED as well as home health at present time Patient report arranging outpt f/u [facility] w/ coordination w/ friends for transportation issues (7) Osteoarthritis of right hip: Requires hip surgery place where transitional care unit is available, will require follow-up at [facility] for this at ca as she is already working on such CM consulted for assistance with placement -- declined rehab/home health as above. Provided info for private pay Seen by supervising provider, stable for dc Plan DVT prophylaxis: SCDs, Heparin SQ while inpatient Discharged home Total Time Total Time Spent Total Time Spent (In Minutes): 45 Discharge Plan Discharge Items Patient Disposition: Home - Self-Care Reason For Visit: STERCORAL COLITIS, PLACEMENT Discharge Diagnosis: Stercoral Colitis, Constipation Condition on Discharge: Good Goals: You have been hospitalized for an acute medical problem. During your stay at [facility], we have made an effort to correct the problem that brought you to the hospital while keeping you as comfortable as possible. Medications were used to bring your condition under control and your discharge instructions will include directions for any medications you should take after leaving the hospital. Please make sure you see your Primary Care Provider as part of your follow up plan. Activity: Resume your previous activity Non-emergency contact: Primary Care Provider and Surgeon Call non-emergency contact if: you have any medication questions, your symptoms worsen, your pain is concerning for you and you have a fever Follow-up/Referrals: Trudy Junior DO [Primary Care Provider] - 02/23/23 10:00 am Diet: Heart Healthy and Low Fiber Diet Comment: increase fiber once moving bowels regularly Addtl Attending Provider Instructions: You have hospitalized for concerns for pain to your rectum concerning for infection, however imaging did not observe any fluid collection and likely this discomfort was from constipation, relieved with enema. You should continue miralax twice daily along with docusate/senna to help keep your bowels regular. You should continue your fiber supplementation but only if drinking enough water as this will worsen constipation. Therapy evaluations recommended rehab but you have declined. Case management has provided a list of private pay caregivers to contact for additional services as required. You should follow up with primary care to monitor your status after discharge. Please return to the ER with any increased pain, fever, or for any other symptoms concerning for you. Take care! Pending Studies at Discharge: No Stand-Alone Forms: My [facility], Smoking Cessation Medications and DC Order Prescriptions: New sennosides-docusate sodium [Senokot-S] 8.6-50 mg Tablet 2 tab PO HS Qty: 30 0RF Continued gabapentin 300 mg capsule See Rx Instructions PO .COMPLEX Qty: 90 0RF Rx Instructions: take 1 tablet twice a day for 1 week then increase to 1 tablet three times a day orally; ok to dispense tablets silver sulfadiazine [Silvadene] 1 % cream 1 applic topical BID Qty: 400 5RF Rx Instructions: apply a 1.5 mm thickness oxybutynin chloride 2.5 mg tablet 2.5 mg PO .qhs Qty: 30 0RF Qbrexza 2.4 % towelette 1 applic topical DAILY Qty: 30 3RF Rx Instructions: Apply to each underarm not more frequently than once every 24 hours cholecalciferol (vitamin D3) 50 mcg (2,000 unit) capsule 50 mcg PO DAILY triamcinolone acetonide 0.1 % ointment 1 applic topical BID Qty: 80 2RF losartan 100 mg tablet 100 mg PO DAILY Patient Comments: CONFIRMED ON [facility] DC SUMMARY 11/30 cyclosporine [Restasis] 0.05 % Dropperette 1 drp OPHTHALMIC (EYE) Q12H duloxetine 30 mg Capsule,Delayed Release(Dr/Ec) 30 mg PO BID red yeast rice 600 mg capsule 1,200 mg PO QAM tizanidine [Zanaflex] 4 mg capsule 2 mg PO HS Hold Instructions: Hold due to frequent falls peppermint oil Oil 1 applic TOPICAL DIRECTED PRN (Reason: Pain) apple cider vinegar 500 mg tablet 500 mg PO DAILY diclofenac sodium [Voltaren Arthritis Pain] 1 % gel 2 g topical QID PRN (Reason: pain) Qty: 100 4RF Rx Instructions: apply to right hip and leg amlodipine [Norvasc] 5 mg Tablet 2.5 mg PO QAM Qty: 30 0RF olanzapine 2.5 mg Tablet 2.5 mg PO BID Qty: 60 0RF metoprolol succinate 25 mg Tablet Extended Release 24 Hr 25 mg PO QAM Qty: 30 0RF Changed polyethylene glycol 3350 [Miralax] 17 gram/dose Powder 17 g PO BID Qty: 119 0RF Held psyllium husk 3 gram/5.4 gram Powder 1 tbsp PO HS Hold Instructions: Resume on 02/22/23. hold until having more regular bowel movements calcium carbonate [Calcium 600] 600 mg calcium (1,500 mg) Tablet 600 mg PO DAILY Hold Instructions: Resume on 02/22/23. hold until seen by PCP, calcium can worsen constipation Discharge Orders: Discharge Order (Routine); Ordered 02/15/23 Ordered By: Ly Giron/Other Patient Handouts: Understanding Colitis Admission Data Admit Date/Time: 02/14/23 18:34 Attending Provider: Kevin Amanda Admit Provider: Slava Haynes Primary Care Provider: Trudy Junior Other Providers: Slava Haynes Other Interventions: Discharge Summary Assessment (RN) Last Done: 02/15/23 14:39 Supervising Physician Co-Signing Physician Notes The patient was seen by me. The chart was reviewed. The case was discussed with ARASELI Reed. Agree with assessment and plan. She is medically stable for discharge home today, February 15 Coding Level of Care Code 25574 INP/OBS DISCH >30 MIN Diagnoses Stercoral colitis K52.89 Stage 1 skin ulcer of sacral region L98.429 Adjustment disorder with mixed disturbance of emotions and conduct F43.25 Hypertension I10 Hypertension type: unspecified Chronic kidney disease N18.9 Hip osteomyelitis, right M86.9 Primary osteoarthritis of right hip M16.11 Osteoarthritis type: primary
--- NOTE | 2023-02-15 13:50 | Communication Note ---
Date of Service: February 15, 2023 By CMS guidelines, a determination that the admission or continued stay is not medically necessary has been made by a member of the UR committee and marlene michaud for this hospital stay, therefore a Code 44 will be completed and the Inpatient admission will be changed to outpatient.
== END 2023-02-15 15:36 | disposition home or self-care (01) ==
LOC: ED 12:22 → INTOOBSV 18:34 → SUATTDRO 18:34 → EDINP 18:34 → 2S 20:28